=== PATIENT | female | born 1945 | race Caucasian/White ===

== ENCOUNTER 2020-05-11 15:24 | Inpatient (IN) | payer MEDICARE ==
[~2020-05-11] VITALS: Ht 149.9 cm; Wt 54.2 kg
[2020-05-12] MEDS ORDERED: FLEET ENEMA ADULT 1 EA BTL PR PRN (05:30)
[2020-05-12] MEDS ORDERED: ONDANSETRON 4 MG (ZOFRAN) ORAL DISSOLVE TAB PO PRN (05:30)
[2020-05-12] MEDS ORDERED: DOCUSATE SODIUM 100 MG (COLACE) CAP PO PRN (05:30)
[2020-05-12] MEDS ORDERED: ACETAMINOPHEN 500 MG TAB (TYLENOL) PO PRN (05:30)
[2020-05-12] MEDS ORDERED: LOPERAMIDE 2 MG (IMODIUM) TABLET PO PRN (05:30)
[2020-05-12] MEDS ORDERED: diphenhydrAMINE 25 MG TAB (BENADRYL) PO PRN (05:30)
[2020-05-12] MEDS ORDERED: CALCIUM CARBONATE 500 MG (TUMS) TAB.CHEW PO PRN (05:30)
[2020-05-12] MEDS ORDERED: BISACODYL 10 MG SUPP (DULCOLAX) PR PRN (05:30)
[2020-05-12] MEDS ORDERED: guaiFENesin/CODEINE (ROBITUSSIN AC) 10ML UDC PO PRN (05:30)
[2020-05-12] MEDS ORDERED: LACTULOSE SYRUP 10GM/15ML (ENULOSE) 30ML UDC PO PRN (05:30)
[2020-05-12] MEDS ORDERED: ACET325C7 PO (10:47)
[2020-05-12] MEDS ORDERED: FAMO20TA3 PO (10:47)
[2020-05-12] MEDS ORDERED: ASPI-999 PO (10:47)
[2020-05-12] MEDS ORDERED: CARV3.122 PO (10:47)
[2020-05-12] MEDS ORDERED: IPRA3AMP31 IH (10:47)
[2020-05-12] MEDS ORDERED: ATOR40TA70 PO (10:47)
[2020-05-12] MEDS ORDERED: INSU100V SQ (10:47)
[2020-05-12] MEDS ORDERED: BUDE0.5A IH (10:47)
[2020-05-12] MEDS ORDERED: ALB0.5V INH (10:47)
[2020-05-12] MEDS ORDERED: INSU100V6 SQ (10:48)
--- NOTE | 2020-05-12 10:56 | NUR ---
MED REC WAS ENTERED USING THE DISCHARGE ORDERS FROM [facility] IN [place]. AFTER MEDICATIONS ARE CONTINUED I WILL SPEAK WITH THE PT AND MAKE ANY CHANGES TO THE NOTES/MED REC IF NEEDED Addendum: 05/16/20 at 1556 by DIANE PERES [facility] SPOKE WITH THE PT TODAY REGARDING HER HOME MEDICATIONS, UNFORTUNATELY JACINTO WAS NOT ABLE TO GIVE ME ANY INFORMATION. SHE WANTED ME TO REACH OUT TO HER DAUGHTER (JACLYN). I CALLED JACLYN AND HAD TO LEAVE A MESSAGE. Addendum: 05/17/20 at 1114 by DIANE PERES [facility] I SPOKE WITH JACLYN AND SHE THOUGHT JACINTO WAS TAKING A MEDICATION FOR HER BLOOD SUGAR. WHEN I ASKED WHICH PRACTITIONER OR OFFICE THE PT WENT TO, JACLYN NAMED [facility] IN [place]. I ALSO ASKED WHICH PHARMACY JACINTO USED AND AJCLYN DIDNT KNOW. I CALLED [facility] [place] AND THEY INDICATED THAT JACINTO IS NOT A CURRENT PT AND THEY HAD NOT SEEN HER SINCE 2016 FOR THE REASONS LISTED ABOVE I TOOK ALL MEDICATIONS OFF THE MED REC AND SET IT TO "NO MEDICATIONS". I ALSO DID LET DR. WAGNER KNOW OF WHAT I HAVE FOUND.
[2020-05-12] MEDS ORDERED: RT-ALBUTEROL/IPRATROPIUM 3 ML (DUONEB) VIAL IH PRN (12:15)
[2020-05-12] MEDS ORDERED: RT-ALBUTEROL SULF 2.5 MG/3 ML PRE-MIX VIAL INH PRN (12:15)
[2020-05-12] MEDS ORDERED: FAMOTIDINE 20 MG (PEPCID) TABLET PO SCH (12:15)
[2020-05-12] MEDS ORDERED: NON-FORMULARY MEDICATION 1 EA EA (Acetaminophen (Tylenol) 650 MG) PO PRN (12:15)
--- NOTE | 2020-05-12 12:38 | NUR ---
Admitted to room 229 , with an admitting diagnosis of CVA , on 05-12-20 from [facility] , accompanied by .JACINTO FAIRCHILD introduced to surroundings, call light, bed controls, phone, TV, temperature control, lights, meal times, smoking policy, visitor policy, side rail policy, bathrooms and showers. Patient Rights given to patient in the handbook.JACINTO FAIRCHILD verbalizes understanding that [facility] is not responsible for the loss or damage to any personal effects or valuables that are kept in the patients posession during their hospitalization. The following Patient Care Plans were discussed with the : Discharge Planning, ,, and . JACINTO FAIRCHILD verbalizes understanding of Interdisciplinary Patient Education. Patient and/or family were informed about the Rapid Response Team and its purpose. Patient received Patient Rights Booklet, which includes Privacy Act Statement and Data Collection Information Summary.
[2020-05-12] MEDS ORDERED: ACETAMINOPHEN 325 MG TABLET PO PRN ×2 (13:15)
--- NOTE | 2020-05-12 13:59 | Progress Note ---
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 PMH is significant for CAD, diabetes mellitus, PVD, and COPD. Following surgery she was transferred to [facility]. While a patient there she was found to have right lower extremity coldness and pulses in the RLE were undetectable with doppler. She was started on an IV heparin drip and was transferred to [place] and vascular surgery was consulted. She underwent a bilateral lower extremity angiogram and was recommended to continue medical management. She was then transferred back to [facility] for further care. As a result of the stroke she now has right sided weakness, dysarthria, expressive aphasia, and dysphagia. Prior to her CVA she was independent in all activities of daily living without limitations. She is admitted to inpatient rehab here at [facility] with critical illness myopathy and will require intensive PT, OT, OPERATIONS RECRUITER, and nursing care. PMH: CAD, diabetes mellitus, PVD, and COPD-non 02 dependent PSH: CABG x 3 vessels, PEG per transfer paperwork-not present currently Allergies: NKDA Medications: ASA 81 mg po Q day, Lipitor 40 mg Q day, Coreg 3.25 mg BID, Lantus 15 units SubQ Q day, Lispro sliding scale, Entresto 1 tab po Q day FH: Negative for cancer or heart disease SH: Former smoker. Single. Lives alone. 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 ROS: Negative for fevers, chills, chest pain, SOB, nausea, vomiting, diarrhea, headache, blurry vision, dysuria. Positive for Right sided weakness. Objective: T P RR BP SPO2 General: Chronically ill appearing female appearing stated age in no apparent distress. HEENT: Normocephalic/Atraumatic. PERRL. EOMI. Pharynx without erythema or exudates. Poor dentition. Cardiac: RRR. No murmur, rub, or gallop. Cap refill < 2 seconds bilateral hands. Radial pulses +2/4 bilat. Pedal pulses +1/4bilat. Trace edema BLE. Respiratory: Lungs CTAB, but diminished bibasilar. No rales, rhonchi or wheezes. No accessory muscle use. O2 via NC. GI: Abdomen soft and nontender to palpation. No rebound or guarding. Bowel sounds normoactive all quadrants. : Villanueva catheter present Skin: Warm and dry. Midline sternotomy incision healing, without drainage, edges well approximated, open to air. MSK/Neuro: Left palmar grasp 5/5. Right palmar grasp 3/5. Left lower extrem hip flexion 5/5. Right lower extrem hip flexion 3/5. Left foot plantarflexion 5/5. Right foot plantarflexion 3/5. Sensation to bilateral upper and lower extremities intact. Cranial nerves 2-12 grossly intact. Expressive aphasia noted. Patient leaning slightly to the right while lying in bed. 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 Ensure adequate anticoagulation 2. PT, OT, and OPERATIONS RECRUITER eval's and treat 3. Oxygen via NC- wean as tolerated 4. Resume Home medications 5. Fall precautions 6. Dietary consult 7. DVT prophylaxis CASSI WAGNER DO 05/12/202054: Supervisory-Addendum Brief Verification & Attestation Participated in pt care: history, MDM, physical Personally performed: exam, history, MDM, supervision of care Care discussed with: Medical Student Procedures: n/a Results interpretation: Verified all documentation Verification and Attestation of Medical Student E/M Service A medical student performed and documented this service in my presence. I reviewed and verified all information documented by the medical student and made modifications to such information, when appropriate. I personally performed the physical exam and medical decision making. Cassi Wagner, May 12, 2020,20:55 WINSTON ORELLANA MED STUDENT May 12, 2020 13:59 CASSI WAGNER DO May 12, 2020 20:55
--- NOTE | 2020-05-12 14:35 | Physical Therapy Evaluation ---
PT Evaluation-General Medical Diagnosis Admission Date May 12, 2020 at 12:30 Medical Diagnosis: CVA Onset Date: Apr 13, 2020 Therapy Diagnosis Therapy Diagnosis: Impaired mobility and strength Precautions Precautions/Isolations: Fall Prevention, Standard Precautions Weight Bear Status Right Lower Extremity: Right Full Weight Bearing Left Lower Extremity: Left Full Weight Bearing Referral Physician: Caroline Reason for Referral: Evaluation/Treatment Medical History Pertinent Medical History: CAD, COPD, DM, PVD Reviewed History: Yes Social History Home: Single Level Current Living Status: Alone Entry Into Home: Level Entry PT Steps Into Home: 0 PT Steps Inside Home: 0 Prior Prior Level of Function SCALE: Activities may be completed with or without assistive devices. 8-Tmeyovegbf-jrqevvh completes the activity by him/herself with no assistance from a helper. 5-Set-up or Clean-up Assistance-helper sets up or cleans up; patient completes activity. Sutton assists only prior to or following the activity. 4-Supervision or Touching Assistance-helper provides verbal cues and/or touching/steadying and/or contact guard assistance as patient completes activity. Assistance may be provided throughout the activity or intermittently. 3-Partial/Moderate Assistance-helper does LESS THAN HALF the effort. Sutton lifts, holds or supports trunk or limbs, but provides less than half the effort. 2-Substantial/Maximal Assistance-helper does MORE THAN HALF the effort. Sutton lifts or holds trunk or limbs and provides more than half the effort. 2-Czlhexdcm-aqlnzc does ALL the effort. Patient does none of the effort to complete the activity. Or, the assistance of 2 or more helpers is required for the patient to complete the activity. If activity was not attempted, code reason: 7-Patient Refused. 9-Not Applicable-not attempted and the patient did not perform the activity before the current illness, exacerbation or injury. 10-Not Attempted due to Environmental Limitations-(lack of equipment, weather restraints, etc.). 88-Not Attempted due to Medical Conditions or Safety Concerns. Bed Mobility: 6 Transfers (B,C,W/C): 6 Gait: 6 Stairs: 6 Indoor Mobility (Ambulation): Independent Stairs: Independent Prior Devices Use: Other-see list below (Cane) Pt own walker that she does not use; pt has recently stated to use a cane but it is unclear how recent and for what reason PT Evaluation-Current Subjective Pt presents supine in bed. Pt agrees to PT. Pt reports no pain; later in session pt experienced pain at catheter insertion with movement that diminished. Pt/Family Goals Return Home Objective Patient Orientation: Person, Place, Time, Eyes Open, Situation, Mumbles Attachments: Oxygen, Villanueva Catheter ROM/Strength ROM Lower Extremities WFL Strength Lower Extremities R hip flex: <3/5 L hip flex: 4/5 R knee ext: 3/5 L knee ext: 5/5 Sensory Vision: Hearing: Functional Sensation Right Lower Extremit: Impaired Sensation Left Lower Extremity: Intact Sensation Lower Extremities LLE sensation intact to light touch L2-S2 RLE sensation impaired to light touch; unclear on how well pt was able to follow assessment instructions Transfers Roll Left & Right (QC): 3 Sit to Lying (QC): 3 Lying to Sitting/Side of Bed(Q: 2 Sit to Stand (QC): 3 Chair/Dxp-bh-Ieder Xfer(QC): 3 Toilet Transfer (QC): 3 Car Transfer (QC): 3 Pt required min assist to roll; mod assist for sit->lying; max assist for lying- >EOB. PT needs min assist with sit to stand; mod assist for chair to chair, toilet, and car transfers. Gait Does the Patient Walk?: Yes Mode of Locomotion: Both Anticipated Mode of Locomotion: Both Walk 10 feet (QC): 88 Walk 50 ft with 2 Turns(QC): 88 Walk 150 ft (QC): 88 Walking 10ft/uneven surface-QC: 88 Distance: 3' Gait Assistive Device: Parallel Bars Comments/Gait Description Pt ambulated 3' inside of parallel bars; pt took small shuffling steps and required assistance with weightshifting as well as progression of RLE. Wheelchair Training Does the Pt Use a Wheelchair?: Yes Distance: 150'x3 Wheel 50 ft with 2 turns (QC): 1 Wheel 150 ft (QC): 1 Type of Wheelchair: Manual Pt is unable to reach ground with BLE to propel and steer WC Stairs 1 Step (curb) (QC): 88 4 Steps (QC): 88 12 Steps (QC): 88 Balance Sitting Static: Fair Sitting Dynamic: Poor Standing Static: Poor Standing Dynamic: Poor Picking up an Object (QC): 88 Treatment Seated LAQs and ankle pumps x10 Showering and ADLs. Assessment/Needs Pt demonstrates ability to stand and bear weight but struggles to then pivot to transfer; pt appeared fearful of reaching for armrest with LUE and instead would hug onto therapist. Pt inconsistent with her ability to follow instructions with exercises. Rehab Potential: Fair PT Short Term Goals Short Term Goals Time Frame: May 19, 2020 Roll Left & Right: 4 Sit to lyin Lying to sitting on side of be: 3 Chair/rwc-qk-srpbr transfer: 3 Walk 10 feet: 3 Does pt use a wc or scooter: Yes Wheel 50ft w/2 turns: 3 Wheel 150 feet: 3 PT Fpc Goals Specialty Plant Supervisor Goals PT Specialty Plant Supervisor Goals Time Frame: Jun 02, 2020 Roll Left & Right (QC): 6 Sit to Lying (QC): 6 Lying-Sitting on Side/Bed(QC): 6 Sit to Stand (QC): 4 Chair/Eyt-hg-Nunju Xfer(QC): 4 Toilet Transfer (QC): 4 Car Transfer (QC): 4 Does the Patient Walk: Yes Walk 10 feet (QC): 3 Walk 50ft with 2 Turns (QC): 3 Walk 150 ft (QC): 88 Walking 10ft on Uneven Surface: 3 1 Step (curb) (QC): 3 4 Steps (QC): 88 12 Steps (QC): 88 Picking up an Object (QC): 88 Does the Pt use WC or Scooter?: Yes Wheel 50 feet with 2 turns (QC: 6 Wheel 150 feet: 6 PT Plan Problem List Problem List: Activity Tolerance, Functional Strength, Safety, Balance, Gait, Transfer, Bed Mobility, ROM Treatment/Plan Treatment Plan: Continue Plan of Care Treatment Plan: Bed Mobility, Education, Functional Activity Robbin, Functional Strength, Group Therapy, Gait, Safety, Therapeutic Exercise, Transfers Treatment Duration: Jun 03, 2020 Frequency: At least 5 of 7 days/Wk (IRF) Estimated Hrs Per Day: 1.5 hours per day Patient and/or Family Agrees t: Yes Safety Risks/Education Patient Education: Gait Training, Transfer Techniques, Correct Positioning, W/C Management, Safety Issues Teaching Recipient: Patient Teaching Methods: Demonstration, Discussion Response to Teaching: Reinforcement Needed Discharge Recommendations Plan Pt will work on bed mobility, transfers, balance, gait training, and therapeutic exercises. Time/GCodes Time In: 1320 Time Out: 1435 Total Billed Treatment Time: 75 Total Billed Treatment 1 visit EVM 10' FA 50' EX 15' Pt Eval [id number]; Cotreated with OT [id number]; Pt focused on mobility and transfers while OT assisted with showering and ADLs. SHREYA FIGUEREDO PT May 12, 2020 14:35
[2020-05-12 15:00] VITALS: BP 140/81
[2020-05-12 15:24] VITALS: BP 140/81
--- NOTE | 2020-05-12 15:47 | Occupational Therapy Eval ---
OT Evaluation-General/PLF Medical Diagnosis Admission Date May 12, 2020 at 12:30 Medical Diagnosis: CVA Onset Date: Apr 13, 2020 Therapy Diagnosis Therapy Diagnosis: Right sided weakness, aphasia Precautions Precautions/Isolations: Fall Prevention, Standard Precautions Referral Physician: Caroline Driver Reason: Activity Tolerance, Self Care, Evaluation/Treatment, Strengthening/ROM Medical History Pertinent Medical History: CAD, COPD, DM, PVD Additional Medical History Myopathy, Dysphagia, dysarthria Current History Pt. underwent CABG x 3, which resulted in CVA with right sided weakness. Reviewed History: Yes Social History Home: Single Level Current Living Status: Alone Entry Into Home: Level Entry Steps Into Home: 0 Steps Inside Home: 0 ADL-Prior Level of Function SCALE: Activities may be completed with or without assistive devices. 4-Fyzkewgwcv-minoxyw completes the activity by him/herself with no assistance from a helper. 5-Set-up or Clean-up Assistance-helper sets up or cleans up; patient completes activity. Spencer assists only prior to or following the activity. 4-Supervision or Touching Assistance-helper provides verbal cues and/or touching/steadying and/or contact guard assistance as patient completes activity. Assistance may be provided throughout the activity or intermittently. 3-Partial/Moderate Assistance-helper does LESS THAN HALF the effort. Spencer lifts, holds or supports trunk or limbs, but provides less than half the effort. 2-Substantial/Maximal Assistance-helper does MORE THAN HALF the effort. Spencer lifts or holds trunk or limbs and provides more than half the effort. 4-Kjahgbdsp-qxgwod does ALL the effort. Patient does none of the effort to compl ete the activity. Or, the assistance of 2 or more helpers is required for the patient to complete the activity. If activity was not attempted, code reason: 7-Patient Refused. 9-Not Applicable-not attempted and the patient did not perform the activity before the current illness, exacerbation or injury. 10-Not Attempted due to Environmental Limitations-(lack of equipment, weather restraints, etc.). 88-Not Attempted due to Medical Conditions or Safety Concerns. ADL PLOF Comments Pt. was independent with daily skills. 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 She reports that she was in the [employer]. Self Care: Independent Functional Cognition: Independent DME/Equipment Comments Pt. verbalizes that she has a walker she doesn't use, and was using a cane occasionally prior to this incident. 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 Drive Self: Yes OT Current Status Subjective No pain reported. Appearance Pt. in bed. Alert. Agrees to work with therapy. Mental Status/Objective Patient Orientation: Person, Place Attachments: Villanueva Catheter, Oxygen Current Glasses/Contacts: Yes Upper Extremity ROM Left- intact Right- impaired. Pt. is able to lift right arm at shoulder, approximately 30 degrees,but this gets more difficult the more tired she becomes. Pt. able to slightly grasp with right hand. Upper Extremity Strength Left- WFL Right- 2+/5 material man strength Edema: Pt. does have edema in right hand. ADL-Treatment Eating (QC): 7 (Pt. to be evaluated by ST.) Oral Hygiene (QC): 1 (OT handed pt. toothbrush while she was in shower, with no toothpaste. Pt. put the handle of it in her mouth. OT attempted ORUTSARARMIUT assist, but pt. unable to understand. OT brushes pt's teeth for her.) Shower/Bathe Self (QC): 2 (Pt. is able to wash her chest and right arm. She requires assistance to wash all other parts. Pt. showers while seated on shower chair.) Upper Body Dressing (QC): 88 (Pt. verbalizes that she is tired. OT assists with doffing/donning clean hospital gown.) Lower Body Dressing (QC): 88 On/Off Footwear (QC): 1 (Pt. able to extend her legs for OT to doff/don slipper socks.) Toileting Hygiene (QC): 1 (Catheter. Pt. verbalizes that she is continent of stool, but pt. slightly incontinent in shower.) Other Treatments OT/PT completed partial co-treatment due to pt's fatigue level, as well as need for skilled assistance x 2. Pt. arrived via ambulance, but agrees to participate. OT focused on ADL skills and UE assessement while PT focused on transfers and mobility. Pt. practiced car transfer, transfer to shower chair and shower, as well as ambulation in parallel bars. Pt. greatly fatigued throughout. Required max x 2 to ambulate 10 feet in bars. Pt. demonstrates fear of movement and falling while standing, and "pushes" when transferring to left side. Pt. motivated and pleasant. Seems aware of deficits, but demonstrates some right sided neglect. Pt. able to use clear words at beginning of treatment. Noted by end of treatment, due to fatigue, her words were garbled and less intelligible. Pt. was transferred to lift chair after session with max assist. All needs met. Education OT Patient Education: Correct positioning, Exercise program, Modified ADL techniques, Progress toward Goal/Update tx plan, Purpose of tx/functional activities, Reviewed precautions, Rehab process, Transfer techniques Teaching Recipient: Patient Teaching Methods: Demonstration, Discussion Response to Teaching: Verbalize Understanding, Return Demonstration, Reinfo rcement Needed OT Short Term Goals Short Term Goals Time Frame: May 26, 2020 Eatin Oral hygiene: 3 Toileting hygiene: 3 Shower/bathe self: 3 Upper body dressin Lower body dressin Putting on/taking off footwear: 3 OT Usp Goals Usp Goals Time Frame: Jun 09, 2020 Eating (QC): 4 Oral Hygiene (QC): 4 Toileting Hygiene (QC): 3 Shower/Bathe Self (QC): 3 Upper Body Dressing (QC): 5 Lower Body Dressing (QC): 4 On/Off Footwear (QC): 4 Additional Goals: 1-Demonstrate ADL Tasks, 2-Verbalize Understanding, 3- ImproveStrength/Robbin 1=Demonstrate adherence to instructed precautions during ADL tasks. 2=Patient will verbalize/demonstrate understanding of assistive devices/modifications for ADL. 3=Patient will improve strength/tolerance for activity to enable patient to perform ADL's. OT Education/Plan Problem List/Assessment Assessment: Decreased Activ Tolerance, Decreased UE Strength, Dependent Transfers, Edema, Impaired Bed Mobility, Impaired Cognition, Impaired Coordination, Impaired Funct Balance, Impaired I ADL's, Impaired Self-Care Skills, Restricted Funct UE ROM, Visual-Perceptual Deficit Discharge Recommendations Plan/Recommendations: Continue POC Therapy Discharge Recommendati: Post Acute OT Comment Equipment needs and discharge location to be determined. Treatment Plan/Plan of Care Treatment,Training & Education: Yes Patient would benefit from OT for education, treatment and training to promote independence in ADL's, mobility, safety and/or upper extremity function for ADL's. Plan of Care: ADL Retraining, Functional Mobility, Group Exercise/Act as Ind, UE Funct Exercise/Act Treatment Duration: Jun 09, 2020 Frequency: At least 5 of 7 days/Wk (IRF) Estimated Hrs Per Day: 1.5 hours per day Agreement: Yes Rehab Potential: Fair Time/GCodes Start Time: 12:55 Stop Time: 14:35 Total Time Billed (hr/min): 80 Billed Treatment Time 8127-7742 1, EVH x 15minutes [id number] Med student assessment, no charge [id number] PT eval, no charge [id number] 1, ADL x 30minutes, FA x 15minutes, Ex x 20minutes (Co-treatment with PT. Please see above note for designated roles.) RALPH LUO OT May 12, 2020 15:47
--- NOTE | 2020-05-12 16:10 | ST Cognitive Linguistic Eval ---
Speech Evaluation-General Medical Diagnosis CVA Onset Date: Apr 13, 2020 Therapy Diagnosis Therapy Diagnosis: Dysarthria, Dysphagia, Expressive Aphasia Precautions Precautions/Isolations: Airborne Isolation Referral Referring Physician: Dr. Velazquez Medical History Pertinent Medical History: CAD, COPD, DM, PVD Reviewed History: Yes Social History Current Living Status: Alone Speech PLF-Current Status Prior Level of Function Patient lives alone and was independent for her daily needs prior to illness. Subjective Patient was pleasant and cooperative with the cognitive assessment. Language Eval: Auditory Comprehends Simple Yes/No Ques: Functional Indent/Objects Multiple Orta: Functional Ident/Pics in Multiple Orta: Functional Follows 1-Step Commands: Functional Follows Complex Directions: Mild Follows General Conversations: Functional Language Eval: Verbal Language Completes Spontaneous Greeting: Functional Produces Auto, Serial Info: Mild Imitates Simple Words/Phrases: Mild Word Finding: Mild Requests Basic Needs: Mild States Basic Personal Info: Mild Expresses Complex Ideas: Moderate Objective Cognitive Domain Attention: WNL Memory: Mild Problem Solving: Moderate, Mild Executive Functions: Moderate Composite Severity Rating: Moderate Clock Drawing Severity Rating: Moderate Objective Formal/Standardized Tests [facility] Mental Status ([facility]), WAB sub tests, informal speech tasks Results 18/30 within Moderate Dementia Disorder range of function, however due to patient's expressive aphasia this score would be considered lower than actual, Moderate speech disorder Oral Motor/Speech Production Patient presents with dysarthria as well as expressive aphasia Impression Patient is a pleasant 75 y/o female who presents to the ARU s/p CVA. The patient was given the SLUMS, WAB subtests and informal speech tasks. The patient scored an 18/30 which may be a lower score than actual. The patient's speech is clear and intelligible for 75% of her communication. She also mumbles and has difficulty expressing herself at times. Patient also has dysphagia and takes in some by oral and also the PEG tube is in place for nutrition. Patient will receive skilled ST to focus on expression, dysphagia and dysarthria. Speech Patient Assess Expression of Ideas/Wants: Frequently (2) Understanding Verbal Content: Usually Understands (3) Brief Interview-Mental Status: Yes Repetition of Three Words: Three (3) Temporal Orientation: Year: Correct (3) Temporal Orientation: Month: Accurate within 5 days(2) Temporal Orientation: Day: Correct (1) Recall : Wear to say "Sock": No, could not recall (0) Recall : Color: No, could not recall (0) Recall : Bed: Yes,after cueing (1) Memory/Recall Ability: Current season, That he or she is in a hsp/hsp unit Speech Short Term Goals Short Term Goals Short Term Goals 1) The patient will complete cognitive tasks related to memory, safety awareness and problem solving at 80% with minimal cues. 2) The patient will complete speech tasks to improve intelligibility at 80% with minimal cues. 3) The patient will complete confrontational naming tasks at 90% with minimal cues. 4) The patient will complete OME for improved oral status for safe oral intake at 80% or greater with minimal cues. Speech Ip Attorney Goals Ip Attorney Goals Patient will improve communication abilities and safe oral intake in order to return to prior level. Speech-Plan Patient/Family Goals Patient/Family Goals: Patient's discharge plans are unknown at this time. Treatment Plan Speech Therapy Treatment Plan: Continue Plan of Care Treatment Duration: May 25, 2020 Frequency: 4 times per week (Patient will receive ST 4-5x per week) Estimated Hrs Per Day: .5 hour per day Rehab Potential: Fair Barriers to Learning: Patient's recent CVA and related disabilities, age Pt/Family Agrees to Plan: Yes Safety Risks/Education Teaching Recipient: Patient Teaching Methods: Discussion Response to Teaching: Verbalize Understanding Education Topics Provided: Safety within her room, utilization of the call light as needed Time Speech Therapy Time In: 15:30 Speech Therapy Time Out: 16:00 Total Billed Time: 30 Billed Treatment Time 1, OMAR VALLADARES [address] ST May 12, 2020 16:10
--- NOTE | 2020-05-12 16:26 | NUR ---
UNABLE TO ANSWER ADMISSION QUESTIONS DUE TO EXPRESSIVE APHASIA. DAUGHTER JACLYN CALLED AND ANSWERED QUESTIONS. PATIENT AND DAUGHTER DO NOT KNOW IF SHE HAS HAD PNEUMONIA VACCINE. JACLYN STATES PATIENT'S PHYSICIAN IS AT [facility] IN [place]. CLINIC CALLED AND THEY SAID THEY HAVE NOT SEEN HER SINCE 2016. UNABLE TO FILL OUT PNEUMONIA VACCINE INTERVENTION. JACLYN ALSO SAYS SHE SHOULD BE A FULL CODE PRESENTLY, BUT SHE IS GOING TO TALK TO BROTHER ABOUT DPOA AND MAKING HER A DNR.
[2020-05-12] MEDS: polyethylene glycoL POWDER 17 GM (MIRALAX) PACK PO SCH ×2 (17:13→21:00)
[2020-05-12] MEDS: SENNA W/DOCUSATE (SENOKOT S) TABLET PO SCH ×2 (17:13→21:00)
[2020-05-12] MEDS: DOCUSATE SODIUM 100 MG (COLACE) CAP PO SCH ×2 (17:13→21:00)
[2020-05-12] MEDS: inSUlin ASPART (NovoLOG) 1 UNIT/0.01 ML (CHARGE PER UNIT) SC SCH ×2 (17:13→21:04)
[2020-05-12 17:39] VITALS: BP 161/72
--- NOTE | 2020-05-12 17:52 | PM&R Post Admission Assessment ---
PM&R HP Date of Visit: May 12, 2020 Time of Visit: 12:45 History of Present Illness CC: CVA HPI: This is a 75yoWF patient who presents from LTAC in [place] where she was admitted after suffering a CVA with right sided weakness and dysarthria and expressive aphasia. PEG tube is in place. Patient denies pain. Patient had an uneventful transport from [place]. Villanueva cath is in place and unsure if she has retention. Last BM is unknown at this time. Reviewed below information from medical student. Verification and Attestation of Medical Student E/M Service A medical student performed and documented this service in my presence. I reviewed and verified all information documented by the medical student and made modifications to such information, when appropriate. I personally performed the physical exam and medical decision making. Cassi Wagner, May 12, 2020,20:59 History and Physical by ANY Alejandre Subjective: CC: CVA HPI: Louise Nicolas is a 75 year old white female who presents to inpatient rehab from [facility] after sustaining a CVA involving the left occipital artery after undergoing CABG x 3 vessels on April 24. PMH is significant for CAD, diabetes mellitus, PVD, and COPD. Following surgery she was transferred to [facility]. While a patient there she was found to have right lower extremity coldness and pulses in the RLE were undetectable with doppler. She was started on an IV heparin drip and was transferred to [place] and vascular surgery was consulted. She underwent a bilateral lower extremity angiogram and was recommended to continue medical management. She was then transferred back to [facility] for further care. As a result of the stroke she now has right sided weakness, dysarthria, expressive aphasia, and dysphagia. Prior to her CVA she was independent in all activities of daily living without limitations. She is admitted to inpatient rehab here at [facility] with critical illness myopathy and will require intensive PT, OT, RUG DRYING MACHINE OPERATOR, and nursing care. PMH: CAD, diabetes mellitus, PVD, and COPD-non 02 dependent PSH: CABG x 3 vessels, PEG per transfer paperwork-not present currently Allergies: NKDA Medications: ASA 81 mg po Q day, Lipitor 40 mg Q day, Coreg 3.25 mg BID, Lantus 15 units SubQ Q day, Lispro sliding scale, Entresto 1 tab po Q day FH: Negative for cancer or heart disease SH: Former smoker. Single. Lives alone. 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 ROS: Negative for fevers, chills, chest pain, SOB, nausea, vomiting, diarrhea, headache, blurry vision, dysuria. Positive for Right sided weakness. Objective: T P RR BP SPO2 General: Chronically ill appearing female appearing stated age in no apparent distress. HEENT: Normocephalic/Atraumatic. PERRL. EOMI. Pharynx without erythema or exuda arcadio. Poor dentition. Cardiac: RRR. No murmur, rub, or gallop. Cap refill < 2 seconds bilateral hands. Radial pulses +2/4 bilat. Pedal pulses +1/4bilat. Trace edema BLE. Respiratory: Lungs CTAB, but diminished bibasilar. No rales, rhonchi or wheezes. No accessory muscle use. O2 via NC. GI: Abdomen soft and nontender to palpation. No rebound or guarding. Bowel sounds normoactive all quadrants. : Villanueva catheter present Skin: Warm and dry. Midline sternotomy incision healing, without drainage, edges well approximated, open to air. MSK/Neuro: Left palmar grasp 5/5. Right palmar grasp 3/5. Left lower extrem hip flexion 5/5. Right lower extrem hip flexion 3/5. Left foot plantarflexion 5/5. Right foot plantarflexion 3/5. Sensation to bilateral upper and lower extremities intact. Cranial nerves 2-12 grossly intact. Expressive aphasia noted. Patient leaning slightly to the right while lying in bed. 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 Ensure adequate anticoagulation 2. PT, OT, and RUG DRYING MACHINE OPERATOR eval's and treat 3. Oxygen via NC- wean as tolerated 4. Resume Home medications 5. Fall precautions 6. Dietary consult 7. DVT prophylaxis Past Miqjfnj-Ciuiqe-Tdgfer Hx Past Med/Social Hx: Reviewed Nursing Past Med/Soc Hx, Reviewed and Corrections made Patient Social History Marrital Status: single Employed/Student: student, part-time Alcohol Use: Denies Use Recreational Drug Use: No Smoking Status: Current Everyday Smoker Type Used: Cigarettes Physical Abuse Screen: No Sexual Abuse: No Recent Foreign Travel: No Contact w/other who traveled: No Recent Hopitalizations: Yes (CVA AND BYPASS SURGERY) Recent Infectious Disease Expo: No Immunizations Up To Date Date of Influenza Vaccine: May 10, 2020 Seasonal Allergies Seasonal Allergies: No Past Medical History Surgeries: Cardiac, CABG, Open Heart Surgery Respiratory: COPD Currently Using CPAP: No Currently Using BIPAP: No Cardiac: Cardiomyopathy, Coronary Artery Disease, High Cholesterol, Hypertension Neurological: Stroke : No Sexually Transmitted Disease: No HIV/AIDS: No Musculoskeletal: Arthritis Endocrine: Diabetes, Non-Insulin dep Hearing Impairment: Denies History of Blood Disorders: No Family History Patient reports no known family medical history. 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 Drive Self: Yes Current Level of Fuctioning Roll Left to Right: 3 Sit to Lyin Lying to Sitting/Side of Bed: 2 Sit to Stand: 3 Chair/[id number]-[id number] Xfer: 3 Car Transfer: 3 Does the Patient Walk: Yes Mode of Locomotion: Both Anticipated Mode of Locomotion: Both Walk 10 feet: 88 Walk 50 ft with 2 Turns: 88 Walk 150 ft: 88 Walking 10ft on uneven surface: 88 Gait Assistive Device: Parallel Bars Does the Pt Use a Wheelchair: Yes Wheelchair Distance: 150'x3 Wheel 50 ft with 2 turns: 1 Wheel 150 ft: 1 Type of Wheelchair: Manual 1 Step (curb): 88 4 Steps: 88 12 Steps: 88 Picking up an Object: 88 Eatin (Pt. to be evaluated by ST.) Oral Hygiene: 1 (OT handed pt. toothbrush while she was in shower, with no toothpaste. Pt. put the handle of it in her mouth. OT attempted QUINAULT assist, but pt. unable to understand. OT brushes pt's teeth for her.) Shower/Bathe Self: 2 (Pt. is able to wash her chest and right arm. She requires assistance to wash all other parts. Pt. showers while seated on shower chair.) Upper Body Dressin (Pt. verbalizes that she is tired. OT assists with doffing/donning clean hospital gown.) Lower Body Dressin On/Off Footwear: 1 (Pt. able to extend her legs for OT to doff/don slipper socks.) Toileting Hygiene: 1 (Catheter. Pt. verbalizes that she is continent of stool, but pt. slightly incontinent in shower.) PM&R Allergy/Meds/Data Review Allergies Coded Allergies: No Known Drug Allergies (Unverified , 05/12/20) Home Medications Scheduled Aspirin (Aspirin), 81 MG PO DAILY, (Reported) Atorvastatin Calcium (Atorvastatin Calcium), 40 MG PO DAILY, (Reported) Budesonide (Budesonide), 0.5 MG IH BID, (Reported) Carvedilol (Carvedilol), 3.125 MG PO BID, (Reported) Famotidine (Acid Correspondence Section Supervisor (FAMOTIDINE)), 20 MG PO Q12H, (Reported) Insulin Glargine,Hum.rec.anlog (Lantus), 25 UNIT SQ HS, (Reported) Insulin Lispro (Humalog), UNIT SQ Q6H, (Reported) Scheduled PRN Acetaminophen (Tylenol), 650 MG PO Q6H PRN for PAIN-MILD (1-4), (Reported) Albuterol Sulfate (Albuterol Sulfate), 2.5 MG INH Q4H PRN for SHORTNESS OF BREATH, (Reported) Ipratropium/Albuterol Sulfate (Iprat-Albut 0.5-3(2.5) mg/3 ml), 3 ML IH Q6H PRN for SHORTNESS OF BREATH, (Reported) Current Medications Current Medications Reviewed Laboratory Data Laboratory Tests 05/12/20 16:54: Glucometer 73 Review of Systems Constitutional: see HPI, malaise, weakness Gastrointestinal: constipation Genitourinary: other (retention) Psychiatric/Neurological: Anxiety, Depressed All Other Systems Reviewed Negative Unless Noted: Yes Physical Exam Physical Exam Vital Signs Vital Signs - First Documented 05/12/20 15:00 Temp 35.9 Pulse 80 Resp 20 B/P (MAP) 140/81 (100) Pulse Ox 99 O2 Delivery Nasal Cannula O2 Flow Rate 1.50 Capillary Refill : Height, Weight, BMI Height: '" Weight: lbs. oz. kg; 25.27 BMI Method: General Appearance: No Apparent Distress, Anxious, Chronically ill, Thin Eyes: Bilateral Eye Normal Inspection, Bilateral Eye PERRL HEENT: PERRL/EOMI, Normal ENT Inspection, Pharynx Normal Neck: Full Range of Motion, Normal Inspection, Non Tender, Supple, Carotid Bruit Respiratory: Chest Non Tender, Lungs Clear, No Accessory Muscle Use, No Respiratory Distress, Decreased Breath Sounds Cardiovascular: Regular Rate, Rhythm, No Edema, No Gallop, No JVD, No Murmur, Normal Peripheral Pulses Gastrointestinal: Normal Bowel Sounds, No Organomegaly, No Pulsatile Mass, Non Tender, Soft Back: Normal Inspection, No CVA Tenderness, No Vertebral Tenderness Extremity: Normal Capillary Refill, Normal Inspection, Normal Range of Motion (except right sided weakness), Non Tender, No Calf Tenderness, No Pedal Edema Neurologic/Psychiatric: Alert, No Motor/Sensory Deficits, Normal Mood/Affect, Abnormal dispensing lead II-XII, Aphasia, Facial Droop, Motor Weakness (right sided flaccidity) Skin: Normal Color, Warm/Dry Lymphatic: No Adenopathy PM&R Medical Assessment & Plan REHAB/MEDICAL ASSESSMENT AND PLAN: REHAB IMPAIRMENT GROUP: CVA ETIOLOGIC DIAGNOSIS: CVA The comorbidities that impact the patients function and/or functional outcome by: catastrophic CVA with right sided flaccidity of dominant upper extremity, dysarthria, expressive aphasia REHAB PLAN: The patient is being admitted to our comprehensive inpatient rehabilitation facility and can tolerate the intensity of service consisting of at least: 180 minutes of therapy a day, 5 out of 7 days a week Rehab treatment will consist of: PT OT will help regain function with right sided weakness in order to lessen the burden on caretakers and ST will help dysphagia and dysarthria The patient/family has a good understanding of our discharge process and will benefit from an interdisciplinary inpatient rehabilitation program. The patient has potential to make improvement and is in need of at least two of the following multidisciplinary therapies including but not limited to physical, occupational, speech, and prosthetics and orthotics. Additionally the patient will need services from respiratory, nutritional services, wound care, psychology, etc. (Customize this to each patient). Given the patients complex condition and risk of further medical complications, rehabilitation services cannot be safely or effectively provided at a lower level of care such as a correction facility. BARRIERS TO DISCHARGE: Catastrophic CVA with right sided flaccidity ESTIMATED LOS: 14 days DISPOSITION: Home RELEVANT CHANGES SINCE PREADMISSION SCREENING: I have compared the patients medical and functional status at the time of the preadmission screening and there are: no changes PROGNOSIS: Fair REHABILITATION GOALS: 1. PT OT will help regain function with right sided weakness in order to lessen the burden on caretakers and ST will help dysphagia and dysarthria All the above goals were reviewed with the patient and he/she is in agreement. By signing this document, I acknowledge that I have personally performed a full physical examination on this patient within 24 hours of admission to this inpatient rehabilitation facility and have determined the patient to be able to tolerate the above course of treatment at an intensive level for a reasonable period of time. I will be completing a detailed individualized Plan of Care for this patient by day #4 of the patients stay based upon the Preadmission Screen, the Post-Admission Evaluation, and the therapy evaluations. Admission Dx/Comorbidities: (1) CVA (cerebral vascular accident) ICD Codes: I63.9 - Cerebral infarction, unspecified (2) Dysarthria ICD Codes: R47.1 - Dysarthria and anarthria (3) Dysphagia ICD Codes: R13.10 - Dysphagia, unspecified (4) PEG (percutaneous endoscopic gastrostomy) status ICD Codes: Z93.1 - Gastrostomy status (5) Expressive aphasia ICD Codes: R47.01 - Aphasia (6) Smoker ICD Codes: F17.200 - Nicotine dependence, unspecified, uncomplicated (7) COPD (chronic obstructive pulmonary disease) ICD Codes: J44.9 - Chronic obstructive pulmonary disease, unspecified (8) CAD (coronary artery disease) ICD Codes: I25.10 - Atherosclerotic heart disease of jena coronary artery without angina pectoris (9) Hx of CABG ICD Codes: Z95.1 - Presence of aortocoronary bypass graft (10) Villanueva catheter in place ICD Codes: Z97.8 - Presence of other specified devices (11) Retention of urine ICD Codes: R33.9 - Retention of urine, unspecified Assessment/Plan Assessment and Plan Assess & Plan/Chief Complaint Assessment per KENNETH AlejandreII: 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 Ensure adequate anticoagulation 2. PT, OT, and RUG DRYING MACHINE OPERATOR eval's and treat 3. Oxygen via NC- wean as tolerated 4. Resume Home medications 5. Fall precautions 6. Dietary consult 7. DVT prophylaxis CASSI WAGNER DO May 12, 2020 17:52
[2020-05-12] MEDS ORDERED: amLODIPine 5 MG (NORVASC) TAB PO NR (18:00)
[2020-05-12] MEDS: RT-ALBUTEROL/IPRATROPIUM 3 ML (DUONEB) VIAL IH SCH (20:31)
[2020-05-12] MEDS: RT-BUDESONIDE NEBS 0.5 MG/2ML (PULMICORT) AMP IH SCH (20:31)
[2020-05-12 20:55] VITALS: BP 130/52
[2020-05-12] MEDS ORDERED: NON-FORMULARY MEDICATION 1 EA EA (Insulin Glargine,Hum.rec.anlog (Lantus) 25 UNIT) SQ SCH (21:00)
[2020-05-12] MEDS: CARVEDILOL 3.125 MG (COREG) TABLET PO SCH (21:00)
[2020-05-12] MEDS: FAMOTIDINE 20 MG (PEPCID) TABLET PO SCH (21:43)
[2020-05-13] MEDS: inSUlin ASPART (NovoLOG) 1 UNIT/0.01 ML (CHARGE PER UNIT) SC SCH ×4 (05:26→20:11)
--- NOTE | 2020-05-13 06:11 | PM&R Progress Note ---
Subjective HPI/CC On Admission Date Seen by Provider: May 13, 2020 Time Seen by Provider: 06:00 Subjective/Events-last exam Patient doing well Settling in well No pain reported Working with PT OT and ST Eating a bit more without aspiration No falls Checked meds and labs Conferred with RN Reviewed therapy notes Review of Systems General: Fatigue, Malaise Neurological: Weakness, Incoordination Objective Exam Vital Signs Vital Signs Date Time Temp Pulse Resp B/P (MAP) Pulse Ox O2 Delivery O2 Flow Rate FiO2 05/14/20 09:00 Room Air 05/14/20 06:00 36.3 88 16 162/61 (58) 94 1.50 Capillary Refill : Less Than 3 Seconds General Appearance: No Apparent Distress, Anxious, Chronically ill, Thin HEENT: PERRL/EOMI, Normal ENT Inspection, Pharynx Normal Neck: Full Range of Motion, Normal Inspection, Non Tender, Supple, Carotid Bruit Respiratory: Chest Non Tender, Lungs Clear, No Accessory Muscle Use, No Respiratory Distress, Decreased Breath Sounds Cardiovascular: Regular Rate, Rhythm, No Edema, No Gallop, No JVD, No Murmur, Normal Peripheral Pulses Gastrointestinal: Normal Bowel Sounds, No Organomegaly, No Pulsatile Mass, Non Tender, Soft Back: Normal Inspection, No CVA Tenderness, No Vertebral Tenderness Extremity: Normal Capillary Refill, Normal Inspection, Normal Range of Motion (except right sided weakness), Non Tender, No Calf Tenderness, No Pedal Edema Neurologic/Psychiatric: Alert, No Motor/Sensory Deficits, Normal Mood/Affect, Abnormal security assurance analyst II-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 FIM Transfers Therapy Code Descriptions/Definitions Functional [place] Measure: 0=Not Assessed/NA 4=Minimal Assistance 1=Total Assistance 5=Supervision or Setup 2=Maximal Assistance 6=Modified [place] 3=Moderate Assistance 7=Complete IndependenceSCALE: Activities may be completed with or without assistive devices. 2-Vbtqtcqlio-khzfolr completes the activity by him/herself with no assistance from a helper. 5-Set-up or Clean-up Assistance-helper sets up or cleans up; patient completes activity. [place] assists only prior to or following the activity. 4-Supervision or Touching Assistance-helper provides verbal cues and/or touching/steadying and/or contact guard assistance as patient completes activity. Assistance may be provided throughout the activity or intermittently. 3-Partial/Moderate Assistance-helper does LESS THAN HALF the effort. [place] lifts, holds or supports trunk or limbs, but provides less than half the effort. 2-Substantial/Maximal Assistance-helper does MORE THAN HALF the effort. [place] lifts or holds trunk or limbs and provides more than half the effort. 0-Bfmrlexti-nqbbyu does ALL the effort. Patient does none of the effort to complete the activity. Or, the assistance of 2 or more helpers is required for the patient to complete the activity. If activity was not attempted, code reason: 7-Patient Refused. 9-Not Applicable-not attempted and the patient did not perform the activity before the current illness, exacerbation or injury. 10-Not Attempted due to Environmental Limitations-(lack of equipment, weather restraints, etc.). 88-Not Attempted due to Medical Conditions or Safety Concerns. Roll Left to Right (QC): 3 Sit to Lying (QC): 3 Sit to Stand (QC): 3 Chair/Tmb-mm-Auajn Xfer(QC): 3 Car Transfer (QC): 3 Gait Training Does the Patient Walk?: Yes Walk 10 feet (QC): 88 Walk 50 ft with 2 Turns(QC): 88 Walk 150 ft (QC): 88 Walking 10ft/uneven surface-QC: 88 Gait Assistive Device: Parallel Bars Wheelchair Training Does the Pt Use a Wheelchair?: Yes Distance: 150'x3 Wheel 50 ft with 2 turns (QC): 1 Wheel 150 ft (QC): 1 Type of Wheelchair: Manual Stair Training 1 Step (curb) (QC): 88 4 Steps (QC): 88 12 Steps (QC): 88 Balance Picking up an Object (QC): 88 ADL-Treatment Eating (QC): 7 (Pt. to be evaluated by ST.) Oral Hygiene (QC): 1 (OT handed pt. toothbrush while she was in shower, with no toothpaste. Pt. put the handle of it in her mouth. OT attempted MATCH-E-BE-NASH-SHE-WISH BAND assist, but pt. unable to understand. OT brushes pt's teeth for her.) Shower/Bathe Self (QC): 2 (Pt. is able to wash her chest and right arm. She requires assistance to wash all other parts. Pt. showers while seated on shower chair.) Upper Body Dressing (QC): 88 (Pt. verbalizes that she is tired. OT assists with doffing/donning clean hospital gown.) Lower Body Dressing (QC): 88 On/Off Footwear (QC): 1 (Pt. able to extend her legs for OT to doff/don slipper socks.) Toileting Hygiene (QC): 1 (Catheter. Pt. verbalizes that she is continent of stool, but pt. 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 Ensure adequate anticoagulation 2. PT, OT, and PHERESIS SPECIALIST eval's and treat 3. Oxygen via NC- wean as tolerated 4. Resume Home medications 5. Fall precautions 6. Dietary consult 7. DVT prophylaxis 05/13/20: Patient participating well No pain reported Continue current meds Advance diet (1) CVA (cerebral vascular accident) (2) Dysarthria (3) Dysphagia (4) PEG (percutaneous endoscopic gastrostomy) status (5) Expressive aphasia (6) Smoker (7) COPD (chronic obstructive pulmonary disease) (8) CAD (coronary artery disease) (9) Hx of CABG (10) Villanueva catheter in place (11) Retention of urine BECKI WAGNER DO May 13, 2020 06:11
--- NOTE | 2020-05-13 06:11 | Individualized Plan of Care ---
Individualized Plan of Care Rehab Nursing IPOC Order Admission Date May 12, 2020 at 12:30 Current Orders Orders Admission Order(Inpt,Obs,Sdc) (05/12/20 05:23) Vital Signs: Per Unit Policy ( 08,16,00 (05/12/20 05:23) Chris Rubio 09,21 (05/12/20 05:23) Sequential Compression Device Q4H (05/12/20 05:23) Brine Tank Operator-Inpt Rehab Con (05/12/20 05:23) Rehab Nursing Orders-Ipoc (05/12/20 05:23) Physical Therapy Rehab Orders (05/12/20 05:23) Occupational Therapy Rehab Ord (05/12/20 05:23) Speech Therapy Rehab Orders (05/12/20 05:23) Cbc With Automated Diff (05/13/20 06:00) Comprehensive Metabolic Panel (05/13/20 06:00) Intake & Output 06,14,22 (05/12/20 05:23) Precautions (Aru) (05/12/20 05:23) Rehab-Intensity Of Therapy (05/12/20 05:23) Initiate Admission Nursing Pro .admission (05/12/20 05:23) Acetaminophen Tablet (Tylenol Tablet) (05/12/20 05:30) Alprazolam Tablet (Xanax Tablet) (05/12/20 05:30) Calcium Carbonate Chew Tablet (Antacid C (05/12/20 05:30) Diphenhydramine Tablet (Benadryl Tablet) (05/12/20 05:30) Docusate Sodium Capsule (Colace Capsule) (05/12/20 09:00) Docusate Sodium Capsule (Colace Capsule) (05/12/20 05:30) Bisacodyl Suppository (Dulcolax Supposit (05/12/20 05:30) Lactulose Oral Solution (Enulose Oral So (05/12/20 05:30) Na Phos/Na Biphos Enema (Fleet Enema Sraavanan (05/12/20 05:30) Guaifenesin/Codeine Syrup (Robitussin Ac (05/12/20 05:30) Loperamide Tablet (Imodium Tablet) (05/12/20 05:30) Melatonin Tablet (Melatonin Tablet) (05/12/20 05:30) Polyethylene Glycol Powder Pkt (Miralax (05/12/20 09:00) Ondansetron Oral Dissolve Tab (Zofran (05/12/20 05:30) Senna S Tablet (Senokot S Tablet) (05/12/20 09:00) Initiate Admission Nursing Pro .admission (05/12/20 05:23) Aspirin Chewable Tablet (Baby Aspirin Ch (05/13/20 09:00) Atorvastatin Tablet (Lipitor) (05/13/20 09:00) Budesonide Inhalation Solution (Pulmicor (05/12/20 21:00) Carvedilol Tablet (Coreg Tablet) (05/12/20 21:00) Famotidine Tablet (Pepcid Tablet) (05/12/20 12:15) Albuterol/Ipra Inhalation Soln (Duoneb I (05/12/20 12:15) (Nf) Acetaminophen (Tylenol) (05/12/20 12:15) (Nf) Insulin Glargine,Hum.Rec.Anlog (Marquez (05/12/20 21:00) Accucheck Achs ACHS (05/12/20 12:06) Insulin Aspart (Novolog) (Novolog (Charg (05/12/20 16:00) Admission Arrival Bed Request (05/12/20 12:36) Acetaminophen Tablet/Caplet (Tylenol T (05/12/20 13:15) Acetaminophen Tablet/Caplet (Tylenol T (05/12/20 13:15) Insulin Determir (Per Unit) (Levemir (Pe (05/12/20 21:00) Albuterol/Ipra Inhalation Soln (Duoneb I (05/12/20 21:00) Edu Tobacco/Smoking Cessation .prn (05/12/20 15:24) Patient Visit (05/12/20 ) Pt Eval Moderate Complexity (05/12/20 ) Exercise Therap, Ea 15 Min (05/12/20 ) Functional Activities, Ea 15 (05/12/20 ) Patient Visit (05/12/20 ) Speech Sound Lang Comp (05/12/20 ) Treat. Speech/Lang/Voice (05/12/20 ) Cho 60g/M 3snack (16-2000 Daniel) (05/12/20 Dinner) Amlodipine Tablet (Norvasc Tablet) (05/12/20 18:00) Amlodipine Tablet (Norvasc Tablet) (05/13/20 09:00) Consult Cardiology (05/12/20 21:03) Famotidine Tablet (Pepcid Tablet) (05/12/20 21:00) Consult Urology (05/13/20 06:06) Tamsulosin Capsule (Flomax Capsule) (05/13/20 18:00) Bethanechol Tablet (Urecholine Tablet) (05/13/20 11:00) Patient Visit (05/13/20 ) Functional Activities, Ea 15 (05/13/20 ) Rehab Nursing Orders: Ongoing Assess. of Cognitive Status, Ongoing Assess. of Function Status, Bladder Management, Bladder Scan, Bladder Training, Bowel Management, Bowel Training, Disease Management & Educaiton, DVT Prophylaxis, Fall Prevention, Fluid/Electrolyte/Nutrition Mgmt, Infection Prevention, Medication Management & Education, Management of Risks & Complications, Manag ement of Skin Intergrity, Nutrition Management, Pain Management, Patient/Family Support, Safety Management, Swallow Precautions Intensity of Therapy to be met Patient to be seen: Min.3h per day/5 of 7d PT IPOC Problem List: Activity Tolerance, Functional Strength, Safety, Balance, Gait, Transfer, Bed Mobility, ROM Treatment Plan: Continue Plan of Care Bed Mobility, Education, Functional Activity Rob[place], Functional Strength, Group Therapy, Gait, Safety, Therapeutic Exercise, Transfers Treatment Duration: May 13, 2020 Frequency: At least 5 of 7 days/Wk (IRF) Estimated Hrs Per Day: 1.5 hours per day OT IPOC Problems: Decreased Activ Tolerance, Decreased UE Strength, Dependent Transfers, Edema, Impaired Bed Mobility, Impaired Cognition, Impaired Coordination, Impaired Funct Balance, Impaired I ADL's, Impaired Self-Care Skills, Restricted Funct UE ROM, Visual-Perceptual Deficit OT Treatment, Training and Edu: Yes Plan of Care: ADL Retraining, Functional Mobility, Group Exercise/Act as Ind, UE Funct Exercise/Act Treatment Duration: Jun 09, 2020 Frequency: At least 5 of 7 days/Wk (IRF) Estimated Hrs Per Day: 1.[address] IPOC Speech Therapy Treatment Plan: Continue Plan of Care Treatment Duration: May 25, 2020 Frequency: 4 times per week (Patient will receive ST 4-5x per week) Estimated Hrs Per Day: .5 hour per day Brine Tank Operator/Case Mgmt Brine Tank Operator/Case Managemen: Discharge Planning Dietitian/Student Finance Advisor Dietitian/Student Finance Advisor to monitor nutritional status and make changes and/or recommendations as needed and work with speech pathology on dietary upgrades as the occur. Physician IPOC Medical Issues being managed closely and that require the 24 hour availability of a physician: Recent catastrophic CVA with dysphagia, expressive aphasia, right sided dominant weakness will be at high risk for aspiration and other decompensation while recovering Medical Issues: Bowel/Bladder Function, DVT Prophylaxis, Falls Precautions, Fluid/Electrolyte/Nutrition Balance, Infection Protection, Pain Management, Swallowing Precautions Brief Synthesis of Preadmission Screen, Post-Admission Evaluation, and Therapy Evaluations: PT OT ST will all focus on regaining more function of right side flaccidity and increase the use of AD in order to lessen the burden on caretakers in the future Medical Prognosis: Fair Anticipated Length of Stay: 14 days BECKI WAGNER DO May 13, 2020 06:11
[2020-05-13 06:31] VITALS: BP 131/63
[2020-05-13 06:34] LABS: BASOPHILS % (AUTO) 1 % (0-10); EOSINOPHILS # (AUTO) 0.1 10^3/uL (0.0-0.3); EOSINOPHILS % (AUTO) 2 % (0-10); HEMATOCRIT 40 % (35-52); HEMOGLOBIN 12.2 g/dL (11.5-16.0); LYMPHOCYTES # (AUTO) 1.6 10^3/uL (1.0-4.0); LYMPHOCYTES % (AUTO) 27 % (12-44); MEAN CORPUSCULAR HEMOGLOBIN 29 pg (25-34); MEAN CORPUSCULAR HGB CONC 30 g/dL (32-36); MEAN CORPUSCULAR VOLUME 94 fL (80-99); MEAN PLATELET VOLUME 9.6 fL (9.0-12.2); MONOCYTES # (AUTO) 0.6 10^3/uL (0.0-1.0); MONOCYTES % (AUTO) 10 % (0-12); NEUTROPHILS # (AUTO) 3.5 10^3/uL (1.8-7.8); NEUTROPHILS % (AUTO) 61 % (42-75); PLATELET COUNT 346 10^3/uL (130-400); WHITE BLOOD COUNT 5.8 10^3/uL (4.3-11.0)
[2020-05-13 07:06] LABS: ALANINE AMINOTRANSFERASE 31 U/L (0-55); ALBUMIN 3.8 GM/DL (3.2-4.5); ALKALINE PHOSPHATASE 106 U/L (40-136); BILIRUBIN,TOTAL 0.3 MG/DL (0.1-1.0); BUN/CREATININE RATIO 21; CALCIUM 9.3 MG/DL (8.5-10.1); CARBON DIOXIDE 23 MMOL/L (21-32); CHLORIDE 102 MMOL/L (98-107); CREATININE SERUM 0.58 MG/DL (0.60-1.30); GFR ESTIMATED > 60; GLUCOSE 105 MG/DL (70-105); POTASSIUM 4.2 MMOL/L (3.6-5.0); SODIUM 139 MMOL/L (135-145)
[2020-05-13] MEDS: RT-ALBUTEROL/IPRATROPIUM 3 ML (DUONEB) VIAL IH SCH ×2 (08:02→23:44)
[2020-05-13] MEDS: RT-BUDESONIDE NEBS 0.5 MG/2ML (PULMICORT) AMP IH SCH ×2 (08:02→23:44)
--- NOTE | 2020-05-13 08:15 | NUR ---
Smoking Cessation order rec'd. After review of pt chart, it's noted patient is an insulin dependent diabetic who has suffered a left sided CVA and currently has expressive aphasia. Rapport established. Short discussion with patient about her smoking status, she mentions she cannot remember if she smokes or not. When I asked her about having diabetes, she recalls that she does, but does not recall how long she has dealt with it. Diabetic Education basics, Smoking Cessation basics, and the link between heart disease and diabetes pamphlets left at bedside table with patient. Explained to patient I will visit with her again next week, and she should try to review the pamphlets over the weekend. Patient voiced understanding. Comfort measures provided, call light explained, placed within reach for patient use.
[2020-05-13] MEDS: DOCUSATE SODIUM 100 MG (COLACE) CAP PO SCH ×2 (08:42→22:08)
[2020-05-13] MEDS: SENNA W/DOCUSATE (SENOKOT S) TABLET PO SCH ×2 (08:42→22:08)
[2020-05-13] MEDS: CARVEDILOL 3.125 MG (COREG) TABLET PO SCH ×2 (08:42→22:07)
[2020-05-13] MEDS: FAMOTIDINE 20 MG (PEPCID) TABLET PO SCH ×2 (08:42→22:08)
[2020-05-13] MEDS: amLODIPine 5 MG (NORVASC) TAB PO SCH (08:42)
[2020-05-13] MEDS: ASPIRIN 81 MG CHEW (CHILDREN'S ASA) PO SCH (08:42)
[2020-05-13] MEDS: polyethylene glycoL POWDER 17 GM (MIRALAX) PACK PO SCH ×2 (08:54→22:05)
--- NOTE | 2020-05-13 10:40 | CONSULTATION REPORT ---
DATE OF SERVICE: 05/13/2020 ATTENDING PHYSICIAN: Dr. Velazquez. SUMMARY: A 75-year-old white lady who about three weeks ago underwent a heart bypass followed by a stroke affecting her left brain with right-sided weakness and urinary retention. I reviewed her history and physical by Dr. Velazquez. The patient denies any voiding symptoms prior to this episode, urinary incontinence or retention. IMPRESSION: Urinary retention, neurogenic bladder secondary to CVA. PLAN: Started on Flomax 0.4 mg daily and Urecholine 10 mg q.i.d. before meals and at bedtime. Watch for side effects, mostly wheezes and shortness of breath. In three days, we will give her a trial of voiding and manage accordingly. Job ID: [id number] DocumentID: [id number] Dictated Date: 05/13/2020 09:36:16 Origination Specialist Date: 05/13/2020 10:39:46 Dictated By: TANIA MENDEZ MD
[2020-05-13] MEDS: ALPRAZolam 0.25 MG (XANAX) TAB PO PRN (10:41)
--- NOTE | 2020-05-13 10:41 | NUR ---
FELY FOR C/O ANXIETY
--- NOTE | 2020-05-13 11:14 | Occupational Ther Daily Note ---
OT Current Status-Daily Note Subjective Pt alert, lying in bed. Pt agrees to therapy. Difficult to assess pain or orientation. Mental Status/Objective Patient Orientation: Person, Place, Time, Situation Attachments: Villanueva Catheter, IV ADL-Treatment 1st TREATMENT-PT/OT cotreat ([id number]), skills of 2 clinicians required for skilled instruction and care due to pt's decreased mobility, impulsivity and decreased balance issues. PT focusing on transfers, mobility and standing. OT focusing on ADLs, R UE placement during mobility and standing. Pt requires assist to don/doff socks. Assist x1 for supine to EOB. Pt requires assist to thread briefs over feet. Pt incontinent of bowel, transfer to BSC and assist to manipulate clothing. Assist x1 to stand assist x1 to cleanse self after toileting. Pt educated on w/c mobility and using B LE and L UE to propel chair. Pt requires verbal and physical cues to continue to propel w/c with correct technique and to keep from running into objects. After set up, pt able to use swab with toothpaste to brush teeth. Assist to lean forward to spit and cleanse mouth. Pt able to stand at parallel bars with PT assisting with standing balance and OT assisting with R UE placement and wt bearing. Pt demonstrates minimal movement in tricep and with relocation commissioner. 2nd TREATMENT-Pt unable to manipulate eating utensils to feed self. Pt is able to chose which item she wants to eat verbally then will lean forward and close mouth over spoon and pull off food with lips. Pt is able to to bring cup to mouth with assist to position straw and close assist. Pt demonstrated movement throughout R UE though fatigued quickly. After session pt sitting in recliner with call light/phone in reach. All needs met in room. Therapy Code Descriptions/Definitions Functional [place] Measure: 0=Not Assessed/NA 4=Minimal Assistance 1=Total Assistance 5=Supervision or Setup 2=Maximal Assistance 6=Modified [place] 3=Moderate Assistance 7=Complete IndependenceSCALE: Activities may be completed with or without assistive devices. 4-Zcghohbpkx-xnnthrn completes the activity by him/herself with no assistance from a helper. 5-Set-up or Clean-up Assistance-helper sets up or cleans up; patient completes activity. [place] assists only prior to or following the activity. 4-Supervision or Touching Assistance-helper provides verbal cues and/or touching/steadying and/or contact guard assistance as patient completes activity. Assistance may be provided throughout the activity or intermittently. 3-Partial/Moderate Assistance-helper does LESS THAN HALF the effort. [place] lifts, holds or supports trunk or limbs, but provides less than half the effort. 2-Substantial/Maximal Assistance-helper does MORE THAN HALF the effort. [place] lifts or holds trunk or limbs and provides more than half the effort. 0-Ktozljqen-nnjkdh does ALL the effort. Patient does none of the effort to complete the activity. Or, the assistance of 2 or more helpers is required for the patient to complete the activity. If activity was not attempted, code reason: 7-Patient Refused. 9-Not Applicable-not attempted and the patient did not perform the activity before the current illness, exacerbation or injury. 10-Not Attempted due to Environmental Limitations-(lack of equipment, weather restraints, etc.). 88-Not Attempted due to Medical Conditions or Safety Concerns. Eating (QC): 2 Oral Hygiene (QC): 3 Lower Body Dressing (QC): 1 On/Off Footwear: 2 Toileting Hygiene (QC): 1 Toilet Transfer (QC): 1 OT Short Term Goals Short Term Goals Time Frame: May 26, 2020 Eatin Oral hygiene: 3 Toileting hygiene: 3 Shower/bathe self: 3 Upper body dressin Lower body dressin Putting on/taking off footwear: 3 OT Fpc Goals Fpc Goals Time Frame: Jun 09, 2020 Eating (QC): 4 Oral Hygiene (QC): 4 Toileting Hygiene (QC): 3 Shower/Bathe Self (QC): 3 Upper Body Dressing (QC): 5 Lower Body Dressing (QC): 4 On/Off Footwear (QC): 4 Additional Goals: 1-Demonstrate ADL Tasks, 2-Verbalize Understanding, 3- ImproveStrength/[place] 1=Demonstrate adherence to instructed precautions during ADL tasks. 2=Patient will verbalize/demonstrate understanding of assistive devices/modifications for ADL. 3=Patient will improve strength/tolerance for activity to enable patient to perform ADL's. OT Education/Plan Problem List/Assessment Assessment: Decreased Activ Tolerance, Decreased Safety Aware, Decreased UE Strength, Impaired Bed Mobility, Impaired Cognition, Impaired Coordination, Impaired Funct Balance, Impaired I ADL's, Impaired Self-Care Skills, Restricted Funct UE ROM, Visual-Perceptual Deficit Discharge Recommendations Plan/Recommendations: Continue POC Treatment Plan/Plan of Care Patient would benefit from OT for education, treatment and training to promote independence in ADL's, mobility, safety and/or upper extremity function for ADL's. Plan of Care: ADL Retraining, Functional Mobility, Group Exercise/Act as Ind, UE Funct Exercise/Act Treatment Duration: Jun 09, 2020 Frequency: At least 5 of 7 days/Wk (IRF) Estimated Hrs Per Day: 1.5 hours per day Agreement: Yes Rehab Potential: Fair Time/GCodes Start Time: 10:00 ([id number]) Stop Time: 13:30 ([id number]) Total Time Billed (hr/min): 90 Billed Treatment Time 2 visits-ADL 1 (20 min) FA 5 (70 min) co-treat with PT [id number], individual [id number] MARGOT WADDELL May 13, 2020 11:14
--- NOTE | 2020-05-13 11:26 | Physical Therapy Daily Note ---
PT Daily Note-Current Subjective Pt presents supine in bed. Pt agrees to PT. Pt reports no pain. Appearance At conclusion of PT treatment patient is left in recliner with tray, call button, all needs met and chair alarm on. Mental Status Patient Orientation: Person, Non-Verbal/Aphasic, Eyes Open, Situation Attachments: Villanueva Catheter Transfers SCALE: Activities may be completed with or without assistive devices. 1-Fhhvvqkgxv-zjgkqhu completes the activity by him/herself with no assistance f rom a helper. 5-Set-up or Clean-up Assistance-helper sets up or cleans up; patient completes activity. Coleman assists only prior to or following the activity. 4-Supervision or Touching Assistance-helper provides verbal cues and/or touching/steadying and/or contact guard assistance as patient completes activity. Assistance may be provided throughout the activity or intermittently. 3-Partial/Moderate Assistance-helper does LESS THAN HALF the effort. Coleman lifts, holds or supports trunk or limbs, but provides less than half the effort. 2-Substantial/Maximal Assistance-helper does MORE THAN HALF the effort. Coleman lifts or holds trunk or limbs and provides more than half the effort. 9-Spriynkfc-bglaby does ALL the effort. Patient does none of the effort to complete the activity. Or, the assistance of 2 or more helpers is required for the patient to complete the activity. If activity was not attempted, code reason: 7-Patient Refused. 9-Not Applicable-not attempted and the patient did not perform the activity before the current illness, exacerbation or injury. 10-Not Attempted due to Environmental Limitations-(lack of equipment, weather restraints, etc.). 88-Not Attempted due to Medical Conditions or Safety Concerns. Lying to Sitting/Side of Bed(Q: 3 Sit to Stand (QC): 3 Chair/Dkl-re-Pyjfv Xfer(QC): 3 Min assist with sit to stand. Mod assist with lying-> EOB and chair->chair transfers. Weight Bearing Right Lower Extremity: Right Full Weight Bearing Left Lower Extremity: Left Full Weight Bearing Wheelchair Training Does the Pt Use a Wheelchair?: Yes Wheel 50 ft with 2 turns (QC): 2 Wheel 150 ft (QC): 2 Pt is able to use LUE to propel chair when cued; pt then given max assist for supplemental propelling and steering. Exercises Seated Therapy Exercises: Ankle pumps (RLE) Standing balance Treatments WC mobility, Transfer training, standing balance Assessment Current Status: Poor Progress Unable to fully assess the patient's needs due to their limitations with communication. Pt is able to bear weight and stand with CGA, but struggles with transfers. Pt appears restless and reports she is anxious (nurse gives her some meds for this but she seems to be anxious all the time). Treatment is difficult due to patient's anxiety which could also be fatigue or motivational issues, it is hard to say because the patient has trouble communicating. She also seems to have impaired coordination or proprioception, or possibly depth perception, testing cant really be done due to patient's communication issues and poor ability to follow directions. Co-treated with OT due to pt's limitations in strength, mobility, and coordination of UEs and LEs. PT focused on standing balance and mobility while OT focused on UEs and ADLs. PT Short Term Goals Short Term Goals Time Frame: May 19, 2020 Roll Left & Right: 4 Sit to lyin Lying to sitting on side of be: 3 Chair/htt-yw-blktf transfer: 3 Walk 10 feet: 3 Does pt use a wc or scooter: Yes Wheel 50ft w/2 turns: 3 Wheel 150 feet: 3 PT Warehouse Material Handler Goals Warehouse Material Handler Goals PT Warehouse Material Handler Goals Time Frame: Jun 02, 2020 Roll Left & Right (QC): 6 Sit to Lying (QC): 6 Lying-Sitting on Side/Bed(QC): 6 Sit to Stand (QC): 4 Chair/Ufs-zr-Iavtk Xfer(QC): 4 Toilet Transfer (QC): 4 Car Transfer (QC): 4 Does the Patient Walk: Yes Walk 10 feet (QC): 3 Walk 50ft with 2 Turns (QC): 3 Walk 150 ft (QC): 88 Walking 10ft on Uneven Surface: 3 1 Step (curb) (QC): 3 4 Steps (QC): 88 12 Steps (QC): 88 Picking up an Object (QC): 88 Does the Pt use WC or Scooter?: Yes Wheel 50 feet with 2 turns (QC: 6 Wheel 150 feet: 6 PT Plan Problem List Problem List: Activity Tolerance, Functional Strength, Safety, Balance, Gait, Transfer, Bed Mobility, ROM Treatment/Plan Treatment Plan: Continue Plan of Care Treatment Plan: Bed Mobility, Education, Functional Activity Robbin, Functional Strength, Group Therapy, Gait, Safety, Therapeutic Exercise, Transfers Treatment Duration: Jun 03, 2020 Frequency: At least 5 of 7 days/Wk (IRF) Estimated Hrs Per Day: 1.5 hours per day Patient and/or Family Agrees t: Yes Safety Risks/Education Patient Education: Transfer Techniques, Correct Positioning, Safety Issues Teaching Recipient: Patient Teaching Methods: Demonstration, Discussion Response to Teaching: Reinforcement Needed Time/GCodes Time In: 1000 Time Out: 1100 Total Billed Treatment Time: 90 Total Billed Treatment 1 visit FA 90' co-treated for 75' from [id number] SHREYA FIGUEREDO PT May 13, 2020 11:26
--- NOTE | 2020-05-13 14:41 | Consultation-Cardiology ---
HPI-Cardiology Cardiology Consultation Date of Consultation 05/13/20 Date of Admission Time Seen by Provider: 14:36 Indication: coronary artery disease HPI 75-year-old lady with history of CABG underwent surgery on April 24, 2020 postoperatively 8 was reported that patient had a stroke with right hemiparesis, was [facility] the [facility] stroke then she was transferred to our institution. Patient is a poor historian unable to provide history, doesn't recall most of the events, the reports regarding her bypass surgery and the initial outcome is not available it was reported that she had absent pulse in her leg and treated conservatively but currently she has a palpable pulse Home Medications & Allergies Allergies: Coded Allergies: No Known Drug Allergies (Unverified , 05/12/20) Home Medication List Reviewed: Yes TMN-Hyoqns-Rkwebu Hx Patient Social History Marital Status: single Employed/Student: student, part-time Alcohol Use: Denies Use Recreational Drug Use: No Smoking Status: Current Everyday Smoker Type Used: Cigarettes Recent Foreign Travel: No Recent Infectious Disease Expo: No Recent Hopitalizations: Yes (CVA AND BYPASS SURGERY) Physical Abuse Screen: No Sexual Abuse: No Immunizations Up To Date Date of Influenza Vaccine: May 10, 2020 Past Medical History Discussed below Family Medical History Family Medical Hx Noncontributory Family History: Patient reports no known family medical history. Review of Systems-General Review of Systems Constitutional: see HPI, malaise, weakness, other (unable to provide review of systems) Respiratory: see HPI; No cough, No dyspnea on exertion, No hemoptysis, No o rthopnea, No phlegm, No short of breath, No stridor, No wheezing, No other Cardiovascular: see HPI; No chest pain, No edema, No Hx of Intervention, No palpitations, No syncope, No vascular heart diseas, No other Gastrointestinal: constipation Genitourinary: other (retention) Psychiatric/Neurological: Anxiety, Depressed, Numbness, Paresthesia All Other Systems Reviewed Negative Unless Noted: Yes Reviewed Test Results Reviewed Test Results Lab Laboratory Tests Test 05/12/20 16:54 05/12/20 20:44 05/13/20 05:25 05/13/20 06:22 Range/Units Glucometer 73 185 H 50 *L 70-110 MG/DL White Blood Count 5.8 4.3-11.0 10^3/uL Red Blood Count 4.25 3.80-5.11 10^6/uL Hemoglobin 12.2 11.5-16.0 g/dL Hematocrit 40 35-52 % Mean Corpuscular Volume 94 80-99 fL Mean Corpuscular Hemoglobin 29 25-34 pg Mean Corpuscular Hemoglobin Concent 30 L 32-36 g/dL Red Cell Distribution Width 15.6 H 10.0-14.5 % Platelet Count 346 130-400 10^3/uL Mean Platelet Volume 9.6 9.0-12.2 fL Immature Granulocyte % (Auto) 0 % Neutrophils (%) (Auto) 61 42-75 % Lymphocytes (%) (Auto) 27 12-44 % Monocytes (%) (Auto) 10 0-12 % Eosinophils (%) (Auto) 2 0-10 % Basophils (%) (Auto) 1 0-10 % Neutrophils # (Auto) 3.5 1.8-7.8 10^3/uL Lymphocytes # (Auto) 1.6 1.0-4.0 10^3/uL Monocytes # (Auto) 0.6 0.0-1.0 10^3/uL Eosinophils # (Auto) 0.1 0.0-0.3 10^3/uL Basophils # (Auto) 0.0 0.0-0.1 10^3/uL Immature Granulocyte # (Auto) 0.0 0.0-0.1 10^3/uL Sodium Level 139 135-145 MMOL/L Potassium Level 4.2 3.6-5.0 MMOL/L Chloride Level 102 98-107 MMOL/L Carbon Dioxide Level 23 21-32 MMOL/L Anion Gap 14 5-14 MMOL/L Blood Urea Nitrogen 12 7-18 MG/DL Creatinine 0.58 L 0.60-1.30 MG/DL Estimat Glomerular Filtration Rate > 60 BUN/Creatinine Ratio 21 Glucose Level 105 70-105 MG/DL Calcium Level 9.3 8.5-10.1 MG/DL Corrected Calcium 9.5 8.5-10.1 MG/DL Total Bilirubin 0.3 0.1-1.0 MG/DL Aspartate Amino Transf (AST/SGOT) 22 5-34 U/L Alanine Aminotransferase (ALT/SGPT) 31 0-55 U/L Alkaline Phosphatase 106 40-136 U/L Total Protein 7.0 6.4-8.2 GM/DL Albumin 3.8 3.2-4.5 GM/DL Test 05/13/20 06:47 05/13/20 10:56 Range/Units Glucometer 116 H 89 70-110 MG/DL Physical Exam Physical Exam Vital Signs Vital Signs - First Documented 05/12/20 15:00 Temp 35.9 Pulse 80 Resp 20 B/P (MAP) 140/81 (100) Pulse Ox 99 O2 Delivery Nasal Cannula O2 Flow Rate 1.50 Capillary Refill : Less Than 3 Seconds Height, Weight, BMI Height: '" Weight: lbs. oz. kg; 25.27 BMI Method: General Appearance: No Apparent Distress, Anxious, Chronically ill, Thin Eyes: Bilateral Eye Normal Inspection, Bilateral Eye PERRL HEENT: PERRL/EOMI, Normal ENT Inspection, Pharynx Normal Neck: Full Range of Motion, Normal Inspection, Non Tender, Supple, Carotid Bruit Respiratory: Chest Non Tender, Lungs Clear, No Accessory Muscle Use, No Respiratory Distress, Decreased Breath Sounds Cardiovascular: Regular Rate, Rhythm, No Edema, No Gallop, No JVD, No Murmur, Normal Peripheral Pulses Gastrointestinal: Normal Bowel Sounds, No Organomegaly, No Pulsatile Mass, Non Tender, Soft Back: Normal Inspection, No CVA Tenderness, No Vertebral Tenderness Extremity: Normal Capillary Refill, Normal Inspection, Normal Range of Motion (except right sided weakness), Non Tender, No Calf Tenderness, No Pedal Edema Neurologic/Psychiatric: Alert, Normal Mood/Affect, Abnormal tire buster II-XII, Aphasia, Facial Droop, Motor Weakness (right sided flaccidity) Skin: Normal Color, Warm/Dry Lymphatic: No Adenopathy A/P-Cardiology Admission Diagnosis CVA Coronary artery disease Hypertension Hyperlipidemia Assessment/Plan Status post CVA with residual right hemiparesis, receiving PT OT, managed by Dr. Velazquez Coronary artery disease status post CABG 3. Continue to monitor at this time. Next Hypertension, continue current medication monitor blood pressure Hyperlipidemia, monitor lipids Questionable peripheral arterial disease with ischemic event after her bypass has improved after conservative management, continue to monitor Diabetes mellitus, followed and managed by primary care physician Debility, receiving physical therapy Clinical Quality Measures DVT/VTE Risk/Contraindication: Risk Factor Score Per Nursin RFS Level Per Nursing on Admit: 4+=Very High LOU KASPER MD May 13, 2020 14:41
[2020-05-13] MEDS: BETHANECHOL 10 MG (URECHOLINE) TAB PO SCH ×3 (15:01→22:08)
--- NOTE | 2020-05-13 15:05 | NUR ---
CM/SS ADMISSION Patient was admitted to ARU from [facility] in [place] 05/12/20 for CVA with right sided deficits. Her daughter Rula reports she presented to [facility] 03/28 and was transferred to [facility] 03/29. She has been hospitalized ever since. Rula reports she had a CVA following a CABG x 4, prior to that she was completely independent of all activities. Additional diagnoses include, in part, dysarthria, dysphagia, PEG, expressive aphasia, COPD, tobaccoism, CAD, diabetes, retention of urine. Patient transfers include [facility] to [facility], then ARU. Daughter Rula Junior has moved forward to create a room at her home for patient, the plan is that she will reside there with Rula and her spouse. Prior to that patient resided alone and was completely self sufficient. PCP: Not confirmed at this time, Rula is unsure who patient's physician is. She indicates patient was on diabetic oral medication. Indications are she had history with [facility] in [place] but nursing reports they called and were told patient had not been there since 2016. PHARMACY: Unknown at this time. Family to explore home Rx to assist with prescribing physician and supplying pharmacy as it relates to moving forward. INSURANCE: Patient has Medicare, Rula believes [facility] is applying for Medicaid for patient, hospital contact is Brooke, , will explore. Assume they are applying in [place] and patient will be a [place] resident. DME: Patient has none, never needed. BARRIERS TO DISCHARGE PLANNING: Daughter is preparing living space for patient in her home, patient's maximum level of independence will be crucial. 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 Coordination of living environment for patient's specific performance and safety. Care and treatment should include patient's emotional/behavior health well being. She has gone from fully independent life to current disabilities. Rula said the neurologist told them she would never drive or be able to live alone and they did discuss this with patient. Rula describes patient was very emotional with this news. CONTACTS: Emanuel Nicolas, Son [id number] [place] [address] Rula Junior, Daughter [address] [place] [address] [phone] Patient does not have a POA at this time; however, Rula's spouse is [facility], they are tentatively pursuing a Guardianship for patient. Rula understands the purpose and process of the weekly patient care conference and that her mom's first review will be Saturday, May 18, 2020.
[2020-05-13 16:53] VITALS: BP 135/66
--- NOTE | 2020-05-13 17:35 | NUR ---
"RD ASSESSMENT PMHx: CAD; DM: COPD; dysphagia PT INTERACTION: Pt was semi-awake and pleasant during dietary consult for MST score. Pt states current appetite is fair. Note avg PO intake 62% x2meal, per chart review. Note pt has hx of dysphagia and has a PEG tube, per chart review. Pt states following a regular diet at home, and has no issues with chewing/swallowing food. Pt states no recent issues with nausea, vomiting, constipation, or diarrhea, and that she is unsure of her last BM. Note pt currently on bowel regimen of colace BID, senna BID, and miralax BID, per chart review. Pt states no recent wt changes. Note unable to determine recent hx, per chart review. Pt states unsure of current DM management. Note unable to determine recent HbA1c, per chart review. Upon visual assessment, pt appears to be adequately nourished with no visible signs of muscle/fat wasting and a BMI of 25.3 (Normal BMI for age). Given wt hx, visual assessment, and PO intake, pt does not meet criteria for malnutrition per ASPEN guidelines. ABNORMAL NUTRITION-RELATED LAB VALUES LOW: cr 0.58; HIGH: glu 116 Est. kcal needs: 9819-2211 kcal | 25-30 kcal/kg Est. Pro needs: 57-68 g Pro | 1.0-1.2 g Pro/kg PES STATEMENT: Inadequate oral intake (NI-2.1) related to loss of appetite as evidenced by pt interview and avg PO intake 62% x2meal. INTERVENTION: Continue with current diet order of CHO 60g/m 3snack diet, with modifier of DYS Mechanically Altered. Pt may benefit from nutrition supplementation if PO intake declines. Did not offer diet education at this time, as pt fell asleep at end of assessment. Will attempt to offer when pt is more awake. Will continue to follow and reassess as pt needs, intake, and status change. Mukesh Ontiveros, MS RD LD"
[2020-05-13] MEDS: TAMSULOSIN 0.4 MG (FLOMAX) CAP PO SCH (17:44)
[2020-05-14 06:00] VITALS: BP 162/61
[2020-05-14] MEDS: inSUlin ASPART (NovoLOG) 1 UNIT/0.01 ML (CHARGE PER UNIT) SC SCH ×4 (06:14→20:14)
[2020-05-14] MEDS: BETHANECHOL 10 MG (URECHOLINE) TAB PO SCH ×4 (06:26→22:16)
[2020-05-14] MEDS: RT-BUDESONIDE NEBS 0.5 MG/2ML (PULMICORT) AMP IH SCH ×2 (07:57→20:15)
[2020-05-14] MEDS: RT-ALBUTEROL/IPRATROPIUM 3 ML (DUONEB) VIAL IH SCH ×2 (07:57→20:12)
[2020-05-14] MEDS: ASPIRIN 81 MG CHEW (CHILDREN'S ASA) PO SCH (08:39)
[2020-05-14] MEDS: amLODIPine 5 MG (NORVASC) TAB PO SCH (08:40)
[2020-05-14] MEDS: SENNA W/DOCUSATE (SENOKOT S) TABLET PO SCH ×2 (08:40→22:17)
[2020-05-14] MEDS: FAMOTIDINE 20 MG (PEPCID) TABLET PO SCH ×2 (08:40→22:16)
[2020-05-14] MEDS: polyethylene glycoL POWDER 17 GM (MIRALAX) PACK PO SCH ×2 (08:40→20:30)
[2020-05-14] MEDS: CARVEDILOL 3.125 MG (COREG) TABLET PO SCH ×2 (08:40→22:16)
[2020-05-14] MEDS: DOCUSATE SODIUM 100 MG (COLACE) CAP PO SCH ×2 (08:40→22:16)
[2020-05-14] MEDS: ALPRAZolam 0.25 MG (XANAX) TAB PO PRN (10:03)
--- NOTE | 2020-05-14 12:43 | Physical Therapy Daily Note ---
PT Daily Note-Current Subjective Pt. in bed, smiles, some speaking, agreeable to Ex and up in chair Pain Location: No Pain Reported Transfers SCALE: Activities may be completed with or without assistive devices. 0-Mtixnncccy-vggqtfa completes the activity by him/herself with no assistance from a helper. 5-Set-up or Clean-up Assistance-helper sets up or cleans up; patient completes activity. Shiloh assists only prior to or following the activity. 4-Supervision or Touching Assistance-helper provides verbal cues and/or touching/steadying and/or contact guard assistance as patient completes activity. Assistance may be provided throughout the activity or intermittently. 3-Partial/Moderate Assistance-helper does LESS THAN HALF the effort. Shiloh lifts, holds or supports trunk or limbs, but provides less than half the effort. 2-Substantial/Maximal Assistance-helper does MORE THAN HALF the effort. Shiloh lifts or holds trunk or limbs and provides more than half the effort. 0-Aaqehjmre-fgkhcj does ALL the effort. Patient does none of the effort to complete the activity. Or, the assistance of 2 or more helpers is required for the patient to complete the activity. If activity was not attempted, code reason: 7-Patient Refused. 9-Not Applicable-not attempted and the patient did not perform the activity before the current illness, exacerbation or injury. 10-Not Attempted due to Environmental Limitations-(lack of equipment, weather restraints, etc.). 88-Not Attempted due to Medical Conditions or Safety Concerns. mod assist sup to sit, sitting balance CGA to min, Sit to stand mod assist, SPT bed to recliner mod assist Weight Bearing Right Lower Extremity: Right Full Weight Bearing Left Lower Extremity: Left Full Weight Bearing Exercises Supine Ex: Ankle pumps, Quad Set, Heel Slides, Hip abd/add Supine Reps: 12 Seated Therapy Exercises: Ankle pumps, Sit to stand, Long arc quads, Hip abd/add Seated Reps: 8 Treatments sit to stand , standing and sitting balance, TRFs Assessment nurse present after in chair, pt. with dyspnea, O2 sats>90%, nurse present to assess PT Short Term Goals Short Term Goals Time Frame: May 19, 2020 Roll Left & Right: 4 Sit to lyin Lying to sitting on side of be: 3 Chair/uxv-cn-izwoq transfer: 3 Walk 10 feet: 3 Does pt use a wc or scooter: Yes Wheel 50ft w/2 turns: 3 Wheel 150 feet: 3 PT Custodial Goals Custodial Goals PT Clinical Research Management Associate Goals Time Frame: Jun 02, 2020 Roll Left & Right (QC): 6 Sit to Lying (QC): 6 Lying-Sitting on Side/Bed(QC): 6 Sit to Stand (QC): 4 Chair/Ioy-em-Zwssb Xfer(QC): 4 Toilet Transfer (QC): 4 Car Transfer (QC): 4 Does the Patient Walk: Yes Walk 10 feet (QC): 3 Walk 50ft with 2 Turns (QC): 3 Walk 150 ft (QC): 88 Walking 10ft on Uneven Surface: 3 1 Step (curb) (QC): 3 4 Steps (QC): 88 12 Steps (QC): 88 Picking up an Object (QC): 88 Does the Pt use WC or Scooter?: Yes Wheel 50 feet with 2 turns (QC: 6 Wheel 150 feet: 6 PT Plan Treatment/Plan Treatment Plan: Continue Plan of Care Treatment Plan: Bed Mobility, Education, Functional Activity Robbin, Functional Strength, Group Therapy, Gait, Safety, Therapeutic Exercise, Transfers Treatment Duration: May 13, 2020 Frequency: At least 5 of 7 days/Wk (IRF) Estimated Hrs Per Day: 1.5 hours per day Patient and/or Family Agrees t: Yes Safety Risks/Education Patient Education: Transfer Techniques, Correct Positioning Teaching Recipient: Patient Time/GCodes Time In: 940 Time Out: 1005 Total Billed Treatment Time: 25 Total Billed Treatment 1,FA15,EX10 JANA OROSCO MANAGER GRAPHIC May 14, 2020 12:42
--- NOTE | 2020-05-14 16:34 | PM&R Progress Note ---
Subjective HPI/CC On Admission Date Seen by Provider: May 14, 2020 Time Seen by Provider: 06:00 Subjective/Events-last exam 05/14/20: Patient denies pain Working well with structured therapies Villanueva cath still in place will need to DC soon Working on BM regimen Patient doing well Settling in well No pain reported Working with PT OT and ST Eating a bit more without aspiration No falls Checked meds and labs Conferred with RN Reviewed therapy notes Review of Systems General: Fatigue, Malaise Neurological: Weakness, Numbness, Incoordination, Change in speech Objective Exam Vital Signs Vital Signs Date Time Temp Pulse Resp B/P (MAP) Pulse Ox O2 Delivery O2 Flow Rate FiO2 05/14/20 09:00 Room Air 05/14/20 06:00 36.3 88 16 162/61 (68) 94 1.50 Capillary Refill : Less Than 3 Seconds General Appearance: No Apparent Distress, Anxious, Chronically ill, Thin HEENT: PERRL/EOMI, Normal ENT Inspection, Pharynx Normal Neck: Full Range of Motion, Normal Inspection, Non Tender, Supple, Carotid Br uit Respiratory: Chest Non Tender, Lungs Clear, No Accessory Muscle Use, No Respiratory Distress, Decreased Breath Sounds Cardiovascular: Regular Rate, Rhythm, No Edema, No Gallop, No JVD, No Murmur, Normal Peripheral Pulses Gastrointestinal: Normal Bowel Sounds, No Organomegaly, No Pulsatile Mass, Non Tender, Soft Back: Normal Inspection, No CVA Tenderness, No Vertebral Tenderness Extremity: Normal Capillary Refill, Normal Inspection, Normal Range of Motion (except right sided weakness), Non Tender, No Calf Tenderness, No Pedal Edema Neurologic/Psychiatric: Alert, No Motor/Sensory Deficits, Normal Mood/Affect, 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 FIM Transfers Therapy Code Descriptions/Definitions Functional [place] Measure: 0=Not Assessed/NA 4=Minimal Assistance 1=Total Assistance 5=Supervision or Setup 2=Maximal Assistance 6=Modified [place] 3=Moderate Assistance 7=Complete IndependenceSCALE: Activities may be completed with or without assistive devices. 5-Bipootkbdj-lduotlh completes the activity by him/herself with no assistance from a helper. 5-Set-up or Clean-up Assistance-helper sets up or cleans up; patient completes activity. [place] assists only prior to or following the activity. 4-Supervision or Touching Assistance-helper provides verbal cues and/or julio césar slime/steadying and/or contact guard assistance as patient completes activity. Assistance may be provided throughout the activity or intermittently. 3-Partial/Moderate Assistance-helper does LESS THAN HALF the effort. [place] lifts, holds or supports trunk or limbs, but provides less than half the effort. 2-Substantial/Maximal Assistance-helper does MORE THAN HALF the effort. [place] lifts or holds trunk or limbs and provides more than half the effort. 0-Jizsqkrlr-jsqimu does ALL the effort. Patient does none of the effort to complete the activity. Or, the assistance of 2 or more helpers is required for the patient to complete the activity. If activity was not attempted, code reason: 7-Patient Refused. 9-Not Applicable-not attempted and the patient did not perform the activity before the current illness, exacerbation or injury. 10-Not Attempted due to Environmental Limitations-(lack of equipment, weather restraints, etc.). 88-Not Attempted due to Medical Conditions or Safety Concerns. Roll Left to Right (QC): 3 Sit to Lying (QC): 3 Sit to Stand (QC): 3 Chair/Ebs-kv-Mydus Xfer(QC): 3 Car Transfer (QC): 3 Gait Training Does the Patient Walk?: Yes Walk 10 feet (QC): 88 Walk 50 ft with 2 Turns(QC): 88 Walk 150 ft (QC): 88 Walking 10ft/uneven surface-QC: 88 Gait Assistive Device: Parallel Bars Wheelchair Training Does the Pt Use a Wheelchair?: Yes Distance: 150'x3 Wheel 50 ft with 2 turns (QC): 2 Wheel 150 ft (QC): 2 Type of Wheelchair: Manual Stair Training 1 Step (curb) (QC): 88 4 Steps (QC): 88 12 Steps (QC): 88 Balance Picking up an Object (QC): 88 ADL-Treatment Eating (QC): 2 Oral Hygiene (QC): 3 Shower/Bathe Self (QC): 2 (Pt. is able to wash her chest and right arm. She requires assistance to wash all other parts. Pt. showers while seated on shower chair.) Upper Body Dressing (QC): 88 (Pt. verbalizes that she is tired. 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 Ensure adequate anticoagulation 2. PT, OT, and AIRCRAFT PNEUDRAULICS REPAIRER eval's and treat 3. Oxygen via NC- wean as tolerated 4. Resume Home medications 5. Fall precautions 6. Dietary consult 7. DVT prophylaxis 05/13/20: Patient participating well No pain reported Continue current meds Advance diet 05/14/20: Villanueva DC soon Continue home meds Therapies to continue protocol (1) CVA (cerebral vascular accident) (2) Dysarthria (3) Dysphagia (4) PEG (percutaneous endoscopic gastrostomy) status (5) Expressive aphasia (6) Smoker (7) COPD (chronic obstructive pulmonary disease) (8) CAD (coronary artery disease) (9) Hx of CABG (10) Villanueva catheter in place (11) Retention of urine BECKI WAGNER DO May 14, 2020 16:34
[2020-05-14] MEDS: TAMSULOSIN 0.4 MG (FLOMAX) CAP PO SCH (17:24)
[2020-05-14 18:03] VITALS: BP 142/67
[2020-05-15 06:00] VITALS: BP 131/61
--- NOTE | 2020-05-15 06:15 | PM&R Progress Note ---
Subjective HPI/CC On Admission Date Seen by Provider: May 15, 2020 Time Seen by Provider: 06:00 Subjective/Events-last exam 05/15/20: Patient participating with therapy No pain reported Dr Houston consulted for james catheter 05/14/20: Patient denies pain Working well with structured therapies James cath still in place will need to DC soon Working on BM regimen Patient doing well Settling in well No pain reported Working with PT OT and ST Eating a bit more without aspiration No falls Checked meds and labs Conferred with RN Reviewed therapy notes Review of Systems General: Fatigue, Malaise Neurological: Weakness, Incoordination Objective Exam Vital Signs Vital Signs Date Time Temp Pulse Resp B/P (MAP) Pulse Ox O2 Delivery O2 Flow Rate FiO2 05/15/20 20:30 93 Room Air 05/15/20 17:16 36.0 87 16 162/69 (100) 05/14/20 07:57 2.00 Capillary Refill : Less Than 3 Seconds General Appearance: No Apparent Distress, Anxious, Chronically ill, Thin HEENT: PERRL/EOMI, Normal ENT Inspection, Pharynx Normal Neck: Full Range of Motion, Normal Inspection, Non Tender, Supple, Carotid Bruit Respiratory: Chest Non Tender, Lungs Clear, No Accessory Muscle Use, No Respiratory Distress, Decreased Breath Sounds Cardiovascular: Regular Rate, Rhythm, No Edema, No Gallop, No JVD, No Murmur, Normal Peripheral Pulses Gastrointestinal: Normal Bowel Sounds, No Organomegaly, No Pulsatile Mass, Non Tender, Soft Back: Normal Inspection, No CVA Tenderness, No Vertebral Tenderness Extremity: Normal Capillary Refill, Normal Inspection, Normal Range of Motion (except right sided weakness), Non Tender, No Calf Tenderness, No Pedal Edema Neurologic/Psychiatric: Alert, No Motor/Sensory Deficits, Normal Mood/Affect, Abnormal nutrition specialist II-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 FIM Transfers Therapy Code Descriptions/Definitions Functional [place] Measure: 0=Not Assessed/NA 4=Minimal Assistance 1=Total Assistance 5=Supervision or Setup 2=Maximal Assistance 6=Modified [place] 3=Moderate Assistance 7=Complete IndependenceSCALE: Activities may be completed with or without assistive devices. 9-Usddnhncoi-rdzyqbz completes the activity by him/herself with no assistance from a helper. 5-Set-up or Clean-up Assistance-helper sets up or cleans up; patient completes activity. [place] assists only prior to or following the activity. 4-Supervision or Touching Assistance-helper provides verbal cues and/or touching/steadying and/or contact guard assistance as patient completes activity. Assistance may be provided throughout the activity or intermittently. 3-Partial/Moderate Assistance-helper does LESS THAN HALF the effort. [place] lifts, holds or supports trunk or limbs, but provides less than half the effort. 2-Substantial/Maximal Assistance-helper does MORE THAN HALF the effort. [place] lifts or holds trunk or limbs and provides more than half the effort. 6-Ejtqwumuw-ceenkk does ALL the effort. Patient does none of the effort to com plete the activity. Or, the assistance of 2 or more helpers is required for the patient to complete the activity. If activity was not attempted, code reason: 7-Patient Refused. 9-Not Applicable-not attempted and the patient did not perform the activity before the current illness, exacerbation or injury. 10-Not Attempted due to Environmental Limitations-(lack of equipment, weather restraints, etc.). 88-Not Attempted due to Medical Conditions or Safety Concerns. Roll Left to Right (QC): 3 Sit to Lying (QC): 3 Sit to Stand (QC): 3 Chair/Uer-pk-Mwdyu Xfer(QC): 3 Car Transfer (QC): 3 Gait Training Does the Patient Walk?: Yes Walk 10 feet (QC): 88 Walk 50 ft with 2 Turns(QC): 88 Walk 150 ft (QC): 88 Walking 10ft/uneven surface-QC: 88 Gait Assistive Device: Parallel Bars Wheelchair Training Does the Pt Use a Wheelchair?: Yes Distance: 150'x3 Wheel 50 ft with 2 turns (QC): 2 Wheel 150 ft (QC): 2 Type of Wheelchair: Manual Stair Training 1 Step (curb) (QC): 88 4 Steps (QC): 88 12 Steps (QC): 88 Balance Picking up an Object (QC): 88 ADL-Treatment Eating (QC): 2 Oral Hygiene (QC): 3 Shower/Bathe Self (QC): 2 (Pt. is able to wash her chest and right arm. She requires assistance to wash all other parts. Pt. showers while seated on shower chair.) Upper Body Dressing (QC): 88 (Pt. verbalizes that she is tired. 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 Ensure adequate anticoagulation 2. PT, OT, and PATIENT CARRIER eval's and treat 3. Oxygen via NC- wean as tolerated 4. Resume Home medications 5. Fall precautions 6. Dietary consult 7. DVT prophylaxis 05/13/20: Patient participating well No pain reported Continue current meds Advance diet 05/14/20: James DC soon Continue home meds Therapies to continue protocol 05/15/20: Dr Houston appreciated Monitor BP Monitor labs (1) CVA (cerebral vascular accident) (2) Dysarthria (3) Dysphagia (4) PEG (percutaneous endoscopic gastrostomy) status (5) Expressive aphasia (6) Smoker (7) COPD (chronic obstructive pulmonary disease) (8) CAD (coronary artery disease) (9) Hx of CABG (10) James catheter in place (11) Retention of urine BECKI WAGNER DO May 15, 2020 06:15
[2020-05-15] MEDS: inSUlin ASPART (NovoLOG) 1 UNIT/0.01 ML (CHARGE PER UNIT) SC SCH ×4 (06:26→21:29)
[2020-05-15] MEDS: BETHANECHOL 10 MG (URECHOLINE) TAB PO SCH ×4 (06:32→21:30)
[2020-05-15] MEDS: RT-ALBUTEROL/IPRATROPIUM 3 ML (DUONEB) VIAL IH SCH ×2 (07:34→20:18)
[2020-05-15] MEDS: RT-BUDESONIDE NEBS 0.5 MG/2ML (PULMICORT) AMP IH SCH ×2 (07:34→20:23)
[2020-05-15] MEDS: CARVEDILOL 3.125 MG (COREG) TABLET PO SCH ×2 (09:09→21:30)
[2020-05-15] MEDS: DOCUSATE SODIUM 100 MG (COLACE) CAP PO SCH ×2 (09:09→21:30)
[2020-05-15] MEDS: SENNA W/DOCUSATE (SENOKOT S) TABLET PO SCH ×2 (09:09→21:30)
[2020-05-15] MEDS: amLODIPine 5 MG (NORVASC) TAB PO SCH (09:09)
[2020-05-15] MEDS: ASPIRIN 81 MG CHEW (CHILDREN'S ASA) PO SCH (09:09)
[2020-05-15] MEDS: FAMOTIDINE 20 MG (PEPCID) TABLET PO SCH ×2 (09:09→21:29)
--- NOTE | 2020-05-15 09:32 | NUR ---
PT'S DGTR CALLED LAST EVENING, & FACETIME'D W PT OVER LAPTOP. PT WAS THRILLED TO GET TO SEE & TALK W HER DGTR & GRANDKIDS.
--- NOTE | 2020-05-15 10:42 | Cardiology Progress Note ---
Subjective Date Seen by Provider: May 15, 2020 Time Seen by Provider: 10:41 Subjective/Events-last exam Patient was seen at bedside laying down comfortably, no new complaint Review of Systems General: No Chills, No Night Sweats, No Fatigue, No Malaise, No Appetite, No Other HEENT: No Head Aches, No Visual Changes, No Eye Pain, No Ear Pain, No Dysphasia, No Sinus Congestion, No Post Nasal Drip, No Sore Throat, No Other Pulmonary: No Dyspnea, No Cough, No Pleuritic Chest Pain, No Other Cardiovascular: No: Chest Pain, Palpitations, Orthopnea, Paroxysmal Noc. Dyspnea, Edema, Lt Headedness, Other Objective-Cardiology Exam Last Set of Vital Signs Vital Signs 05/14/20 05/15/20 05/15/20 07:57 06:00 07:40 Temp 36.6 Pulse 86 Resp 19 B/P (MAP) 131/61 (84) Pulse Ox 94 O2 Delivery Room Air O2 Flow Rate 2.00 Capillary Refill : Less Than 3 Seconds I&O Intake and Output 05/15/20 00:00 Intake Total 1030 ml Output Total 1350 ml Balance -320 ml Intake Oral 1030 ml Output Urine Total 1350 ml General: Alert, Oriented X3, Cooperative HEENT: Atraumatic, PERRLA Neck: Supple, No JVD, No Thyromegaly Lungs: Clear to Auscultation, Normal Air Movement Heart: Regular Rate, Normal S1, Normal S2, No Murmurs Abdomen: Normal Bowel Sounds, Soft, No Tenderness, No Hepatosplenomegaly, No Masses Extremities: No Clubbing, No Cyanosis, No Edema, Normal Pulses, No Tenderness/Swelling Skin: No Rashes, No Breakdown, No Significant Lesion Neuro: Normal Gait, Normal Speech, Strength at 5/5 X4 Ext, Normal Tone, Sensation Intact Psych/Mental Status: Mental Status NL, Mood NL A/P-Cardiology Admission Diagnosis CVA Coronary artery disease Hypertension Hyperlipidemia Assessment/Plan Status post CVA with residual right hemiparesis, receiving PT OT, I am adding Plavix if okay with Dr. Velazquez Coronary artery disease status post CABG 3. Continue to monitor at this time. Hypertension, continue current medication monitor blood pressure Hyperlipidemia, monitor lipids Questionable peripheral arterial disease with ischemic event after her bypass has improved after conservative management, I am adding Plavix to her current medication Diabetes mellitus, followed and managed by primary care physician Debility, receiving physical therapy Clinical Quality Measures DVT/VTE Risk/Contraindication: Risk Factor Score Per Nursin RFS Level Per Nursing on Admit: 4+=Very High LOU KASPER MD May 15, 2020 10:42
[2020-05-15] MEDS: polyethylene glycoL POWDER 17 GM (MIRALAX) PACK PO SCH ×2 (12:06→21:30)
[2020-05-15 13:28] VITALS: BP 138/64
[2020-05-15 17:16] VITALS: BP 162/69
[2020-05-15] MEDS: ALPRAZolam 0.25 MG (XANAX) TAB PO PRN (18:16)
[2020-05-15] MEDS: TAMSULOSIN 0.4 MG (FLOMAX) CAP PO SCH (18:17)
--- NOTE | 2020-05-15 19:39 | NUR ---
Pt spoke with, & saw her daughter, Rula & grandchild over Facetime tonight again. Pt really brightens up, smiles & escastic to see them.
[2020-05-16 05:57] LABS: BASOPHILS % (AUTO) 1 % (0-10); EOSINOPHILS # (AUTO) 0.2 10^3/uL (0.0-0.3); EOSINOPHILS % (AUTO) 4 % (0-10); HEMATOCRIT 43 % (35-52); HEMOGLOBIN 13.6 g/dL (11.5-16.0); LYMPHOCYTES # (AUTO) 1.6 10^3/uL (1.0-4.0); LYMPHOCYTES % (AUTO) 31 % (12-44); MEAN CORPUSCULAR HEMOGLOBIN 29 pg (25-34); MEAN CORPUSCULAR HGB CONC 32 g/dL (32-36); MEAN CORPUSCULAR VOLUME 93 fL (80-99); MEAN PLATELET VOLUME 10.4 fL (9.0-12.2); MONOCYTES # (AUTO) 0.5 10^3/uL (0.0-1.0); MONOCYTES % (AUTO) 10 % (0-12); NEUTROPHILS # (AUTO) 2.7 10^3/uL (1.8-7.8); NEUTROPHILS % (AUTO) 53 % (42-75); PLATELET COUNT 211 10^3/uL (130-400); WHITE BLOOD COUNT 5.1 10^3/uL (4.3-11.0)
[2020-05-16 06:00] VITALS: BP 157/65
[2020-05-16 06:21] LABS: ALBUMIN 3.6 GM/DL (3.2-4.5)
[2020-05-16] MEDS: inSUlin ASPART (NovoLOG) 1 UNIT/0.01 ML (CHARGE PER UNIT) SC SCH ×4 (06:21→20:58)
[2020-05-16 06:22] LABS: CHLORIDE 102 MMOL/L (98-107); POTASSIUM 3.8 MMOL/L (3.6-5.0); SODIUM 136 MMOL/L (135-145)
[2020-05-16 06:23] LABS: CALCIUM 9.2 MG/DL (8.5-10.1)
[2020-05-16 06:24] LABS: GLUCOSE 124 MG/DL (70-105); TOTAL PROTEIN 6.8 GM/DL (6.4-8.2)
[2020-05-16 06:25] LABS: CARBON DIOXIDE 20 MMOL/L (21-32)
[2020-05-16 06:26] LABS: BILIRUBIN,TOTAL 0.4 MG/DL (0.1-1.0)
[2020-05-16] MEDS: BETHANECHOL 10 MG (URECHOLINE) TAB PO SCH ×4 (06:26→21:08)
[2020-05-16 06:27] LABS: ALKALINE PHOSPHATASE 97 U/L (40-136)
[2020-05-16 06:28] LABS: CREATININE SERUM 0.57 MG/DL (0.60-1.30); GFR ESTIMATED > 60
[2020-05-16 06:29] LABS: BUN/CREATININE RATIO 14
[2020-05-16 06:31] LABS: ALANINE AMINOTRANSFERASE 23 U/L (0-55)
--- NOTE | 2020-05-16 08:50 | Cardiology Progress Note ---
Subjective Date Seen by Provider: May 16, 2020 Time Seen by Provider: 08:05 Subjective/Events-last exam Patient is in bed, complains of fatigue. Denies any chest pain. Objective-Cardiology Exam Last Set of Vital Signs Vital Signs 05/14/20 05/16/20 05/16/20 07:57 06:00 09:00 Temp 36.7 Pulse 86 Resp 15 B/P (MAP) 157/65 (95) Pulse Ox 97 O2 Delivery Room Air O2 Flow Rate 2.00 Capillary Refill : Less Than 3 Seconds I&O Intake and Output 05/16/20 00:00 Intake Total 950 ml Output Total 675 ml Balance 275 ml Intake Oral 950 ml Output Urine Total 675 ml # Bowel Movements 1 General: Alert, Oriented X3, Cooperative HEENT: Atraumatic, PERRLA Neck: Supple, No JVD, No Thyromegaly Lungs: Clear to Auscultation, Normal Air Movement Heart: Regular Rate, Normal S1, Normal S2, No Murmurs Abdomen: Normal Bowel Sounds, Soft, No Tenderness, No Hepatosplenomegaly, No Masses Extremities: No Clubbing, No Cyanosis, No Edema, Normal Pulses, No Tenderness/Swelling Skin: No Rashes, No Breakdown, No Significant Lesion Neuro: Normal Gait, Normal Speech, Strength at 5/5 X4 Ext, Normal Tone, Sensation Intact Psych/Mental Status: Mental Status NL, Mood NL Results Lab Laboratory Tests 05/16/20 05:31 A/P-Cardiology Admission Diagnosis CVA Coronary artery disease Hypertension Hyperlipidemia Assessment/Plan Status post CVA with residual right hemiparesis, receiving PT OT, on Plavix and ASA. Coronary artery disease status post CABG 3. Continue to monitor at this time. Hypertension, increase amlodipine to 10 mg daily Hyperlipidemia, monitor lipids Questionable peripheral arterial disease with ischemic event after her bypass has improved after conservative management, continue on Plavix Diabetes mellitus, followed and managed by primary care physician Debility, receiving physical therapy Patient was seen and evaluated with Meenakshi, examination performed, management plan was discussed, agree with the current scribed note, I made few changes to the note using Italic font Poorly controlled blood pressure, I will increase amlodipine to 10 mg daily Continue to monitor blood pressure Clinical Quality Measures DVT/VTE Risk/Contraindication: Risk Factor Score Per Nursin RFS Level Per Nursing on Admit: 4+=Very High MEENAKSHI [place] May 16, 2020 8:50 am LOU KASPER MD May 16, 2020 11:18 am
--- NOTE | 2020-05-16 09:06 | PM&R Progress Note ---
Subjective HPI/CC On Admission Date Seen by Provider: May 16, 2020 Time Seen by Provider: 09:00 Subjective/Events-last exam 05/16/20: Dr. Houston will discontinue the catheter and evaluate voiding trial today Flomax and Urecholine maintained Bowels are moving Very difficult to recover from catastrophic stroke 05/15/20: Patient participating with therapy No pain reported Dr Houston consulted for james catheter 05/14/20: Patient denies pain Working well with structured therapies James cath still in place will need to DC soon Working on BM regimen Patient doing well Settling in well No pain reported Working with PT OT and ST Eating a bit more without aspiration No falls Checked meds and labs Conferred with RN Reviewed therapy notes Review of Systems General: Fatigue, Malaise Genitourinary: Retention Neurological: Weakness, Incoordination, Confusion Objective Exam Vital Signs Vital Signs Date Time Temp Pulse Resp B/P (MAP) Pulse Ox O2 Delivery O2 Flow Rate FiO2 05/16/20 20:20 Room Air 05/16/20 18:39 97 05/16/20 18:00 37.0 84 20 151/72 (98) 05/14/20 07:57 2.00 Capillary Refill : Less Than 3 Seconds General Appearance: No Apparent Distress, Anxious, Chronically ill, Thin HEENT: PERRL/EOMI, Normal ENT Inspection, Pharynx Normal Neck: Full Range of Motion, Normal Inspection, Non Tender, Supple, Carotid Bruit Respiratory: Chest Non Tender, Lungs Clear, No Accessory Muscle Use, No Respiratory Distress, Decreased Breath Sounds Cardiovascular: Regular Rate, Rhythm, No Edema, No Gallop, No JVD, No Murmur, Normal Peripheral Pulses Gastrointestinal: Normal Bowel Sounds, No Organomegaly, No Pulsatile Mass, Non Tender, Soft Back: Normal Inspection, No CVA Tenderness, No Vertebral Tenderness Extremity: Normal Capillary Refill, Normal Inspection, Normal Range of Motion (except right sided weakness), Non Tender, No Calf Tenderness, No Pedal Edema Neurologic/Psychiatric: Alert, No Motor/Sensory Deficits, Normal Mood/Affect, Abnormal piping engineer II-XII, Aphasia, Facial Droop, Motor Weakness (right sided flaccidity) Skin: Normal Color, Warm/Dry Lymphatic: No Adenopathy Results/Procedures Lab Laboratory Tests 05/16/20 05:31 Patient resulted labs reviewed. FIM Transfers Therapy Code Descriptions/Definitions Functional [place] Measure: 0=Not Assessed/NA 4=Minimal Assistance 1=Total Assistance 5=Supervision or Setup 2=Maximal Assistance 6=Modified [place] 3=Moderate Assistance 7=Complete IndependenceSCALE: Activities may be completed with or without assistive devices. 8-Hjirzziqbh-scavxhs completes the activity by him/herself with no assistance from a helper. 5-Set-up or Clean-up Assistance-helper sets up or cleans up; patient completes activity. [place] assists only prior to or following the activity. 4-Supervision or Touching Assistance-helper provides verbal cues and/or touching/steadying and/or contact guard assistance as patient completes activity. Assistance may be provided throughout the activity or intermittently. 3-Partial/Moderate Assistance-helper does LESS THAN HALF the effort. [place] lifts, holds or supports trunk or limbs, but provides less than half the effort. 2-Substantial/Maximal Assistance-helper does MORE THAN HALF the effort. [place] lifts or holds trunk or limbs and provides more than half the effort. 7-Sqmslckgr-rcbdqk does ALL the effort. Patient does none of the effort to complete the activity. Or, the assistance of 2 or more helpers is required for the patient to complete the activity. If activity was not attempted, code reason: 7-Patient Refused. 9-Not Applicable-not attempted and the patient did not perform the activity before the current illness, exacerbation or injury. 10-Not Attempted due to Environmental Limitations-(lack of equipment, weather restraints, etc.). 88-Not Attempted due to Medical Conditions or Safety Concerns. Roll Left to Right (QC): 3 Sit to Lying (QC): 3 Sit to Stand (QC): 3 Chair/Tny-rw-Ojfzg Xfer(QC): 3 Car Transfer (QC): 3 Gait Training Does the Patient Walk?: Yes Walk 10 feet (QC): 88 Walk 50 ft with 2 Turns(QC): 88 Walk 150 ft (QC): 88 Walking 10ft/uneven surface-QC: 88 Gait Assistive Device: Parallel Bars Wheelchair Training Does the Pt Use a Wheelchair?: Yes Distance: 150'x3 Wheel 50 ft with 2 turns (QC): 2 Wheel 150 ft (QC): 2 Type of Wheelchair: Manual Stair Training 1 Step (curb) (QC): 88 4 Steps (QC): 88 12 Steps (QC): 88 Balance Picking up an Object (QC): 88 ADL-Treatment Eating (QC): 2 Oral Hygiene (QC): 3 Shower/Bathe Self (QC): 2 (Pt. is able to wash her chest and right arm. She requires assistance to wash all other parts. Pt. showers while seated on shower chair.) Upper Body Dressing (QC): 88 (Pt. verbalizes that she is tired. 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 Ensure adequate anticoagulation 2. PT, OT, and ELECTRIC SCREW DRIVER OPERATOR eval's and treat 3. Oxygen via NC- wean as tolerated 4. Resume Home medications 5. Fall precautions 6. Dietary consult 7. DVT prophylaxis 05/13/20: Patient participating well No pain reported Continue current meds Advance diet 05/14/20: James DC soon Continue home meds Therapies to continue protocol 05/15/20: Dr Houston appreciated Monitor BP Monitor labs 05/16/20: Bladder meds Appreciate Dr Houston PT OT ST (1) CVA (cerebral vascular accident) (2) Dysarthria (3) Dysphagia (4) PEG (percutaneous endoscopic gastrostomy) status (5) Expressive aphasia (6) Smoker (7) COPD (chronic obstructive pulmonary disease) (8) CAD (coronary artery disease) (9) Hx of CABG (10) James catheter in place (11) Retention of urine BECKI WAGNER DO May 16, 2020 09:06
[2020-05-16] MEDS: FAMOTIDINE 20 MG (PEPCID) TABLET PO SCH (09:37)
[2020-05-16] MEDS: amLODIPine 5 MG (NORVASC) TAB PO SCH (09:37)
[2020-05-16] MEDS: SENNA W/DOCUSATE (SENOKOT S) TABLET PO SCH ×2 (09:37→21:08)
[2020-05-16] MEDS: polyethylene glycoL POWDER 17 GM (MIRALAX) PACK PO SCH ×2 (09:37→20:12)
[2020-05-16] MEDS: CARVEDILOL 3.125 MG (COREG) TABLET PO SCH ×2 (09:37→21:08)
[2020-05-16] MEDS: DOCUSATE SODIUM 100 MG (COLACE) CAP PO SCH ×2 (09:37→21:08)
[2020-05-16] MEDS: ASPIRIN 81 MG CHEW (CHILDREN'S ASA) PO SCH (09:37)
[2020-05-16] MEDS: CLOPIDOGREL 75 MG (PLAVIX) TABLET PO SCH (09:37)
--- NOTE | 2020-05-16 10:18 | Progress Note - Urology ---
Progress Note-Urology Progress Notes/Assess & Plan Progress/Assessment & Plan TOV TODAY, EXPLAINED TO PATIENT. TOLERATES FLOMAX AND URECHOLINE Final Diagnosis URINE RETENTION TANIA MENDEZ MD May 16, 2020 10:18
--- NOTE | 2020-05-16 10:27 | Physical Therapy Daily Note ---
PT Daily Note-Current Subjective Pt laying Supine in bed upon arrival. Pt agrees to PT. Pain Location: No Pain Reported Mental Status Patient Orientation: Person, M[place] Attachments: Villanueva Catheter Dr Houston advises pt that this will be removed today to test ability to urinate on own. Transfers SCALE: Activities may be completed with or without assistive devices. 0-Wivojcqmrv-sruzpfh completes the activity by him/herself with no assistance from a helper. 5-Set-up or Clean-up Assistance-helper sets up or cleans up; patient completes activity. [place] assists only prior to or following the activity. 4-Supervision or Touching Assistance-helper provides verbal cues and/or touching/steadying and/or contact guard assistance as patient completes activity. Assistance may be provided throughout the activity or intermittently. 3-Partial/Moderate Assistance-helper does LESS THAN HALF the effort. [place] lifts, holds or supports trunk or limbs, but provides less than half the effort. 2-Substantial/Maximal Assistance-helper does MORE THAN HALF the effort. [place] lifts or holds trunk or limbs and provides more than half the effort. 5-Byuthjusb-ywqykt does ALL the effort. Patient does none of the effort to complete the activity. Or, the assistance of 2 or more helpers is required for the patient to complete the activity. If activity was not attempted, code reason: 7-Patient Refused. 9-Not Applicable-not attempted and the patient did not perform the activity before the current illness, exacerbation or injury. 10-Not Attempted due to Environmental Limitations-(lack of equipment, weather restraints, etc.). 88-Not Attempted due to Medical Conditions or Safety Concerns. Lying to Sitting/Side of Bed(Q: 3 Sit to Stand (QC): 4 Chair/Smf-zh-Zbulj Xfer(QC): 3 SPT from EOB to recliner at Mod A. Weight Bearing Right Lower Extremity: Right Full Weight Bearing Left Lower Extremity: Left Full Weight Bearing Exercises Supine Ex: Ankle pumps, Quad Set, Glut sets, Heel Slides, Hip abd/add Supine Reps: 15 Treatments Pt completes Supine EX with instruction/TC & VC for completion. Dr Ramos & Dr Houston see pt during tx. Pt transfers to EOB then to recliner via SPT with RENTAL SALES AGENT. Pt repositioned and resting at end of tx. All needs met, call light in hand. Assessment Current Status: Fair Progress Cognition and weakness limit tx at this time. PT Short Term Goals Short Term Goals Time Frame: May 19, 2020 Roll Left & Right: 4 Sit to lyin Lying to sitting on side of be: 3 Chair/qaa-gq-zhaok transfer: 3 Walk 10 feet: 3 Does pt use a wc or scooter: Yes Wheel 50ft w/2 turns: 3 Wheel 150 feet: 3 PT Care Home Goals Industrial Electrician Journeyman Goals PT Industrial Electrician Journeyman Goals Time Frame: Jun 02, 2020 Roll Left & Right (QC): 6 Sit to Lying (QC): 6 Lying-Sitting on Side/Bed(QC): 6 Sit to Stand (QC): 4 Chair/Yxn-mi-Jeypc Xfer(QC): 4 Toilet Transfer (QC): 4 Car Transfer (QC): 4 Does the Patient Walk: Yes Walk 10 feet (QC): 3 Walk 50ft with 2 Turns (QC): 3 Walk 150 ft (QC): 88 Walking 10ft on Uneven Surface: 3 1 Step (curb) (QC): 3 4 Steps (QC): 88 12 Steps (QC): 88 Picking up an Object (QC): 88 Does the Pt use WC or Scooter?: Yes Wheel 50 feet with 2 turns (QC: 6 Wheel 150 feet: 6 PT Plan Problem List Problem List: Activity Tolerance, Functional Strength, Safety, Balance, Gait, Transfer Treatment/Plan Treatment Plan: Continue Plan of Care Treatment Plan: Bed Mobility, Education, Functional Activity Robbin, Functional Strength, Group Therapy, Gait, Safety, Therapeutic Exercise, Transfers Treatment Duration: May 13, 2020 Frequency: At least 5 of 7 days/Wk (IRF) Estimated Hrs Per Day: 1.5 hours per day Patient and/or Family Agrees t: Yes Safety Risks/Education Patient Education: Transfer Techniques, Correct Positioning, Safety Issues Teaching Recipient: Patient Teaching Methods: Discussion Response to Teaching: Reinforcement Needed Time/GCodes Time In: 930 Time Out: 1015 Total Billed Treatment Time: 45 Total Billed Treatment 1, EX x2 (25m) & FA (20m) JONATHAN KESSLER RENTAL SALES AGENT May 16, 2020 10:26
[2020-05-16] MEDS: RT-BUDESONIDE NEBS 0.5 MG/2ML (PULMICORT) AMP IH SCH ×2 (11:29→18:37)
[2020-05-16] MEDS: RT-ALBUTEROL/IPRATROPIUM 3 ML (DUONEB) VIAL IH SCH ×2 (11:29→18:37)
--- NOTE | 2020-05-16 11:43 | Speech Therapy Daily Note ---
Speech Daily Progress Note Subjective Date Seen by Provider: May 16, 2020 Time Seen by Provider: 00:30 Patient was resting in her bed. Patient was alert and participated with BDE and speech therapy. Objective Patient completed simple speech therapy exercises including answering y/n and simple questions related to her person and environment at 80% with minimal cues. The patient's speech is improving, however she does interject jargon with her normal speech pattern. Patient completed BDE with safe intake of thin liquids and regular texture foods without difficulty. Assessment Assessment Current Status: Good Progress Treatment Plan Continue Plan of Care Speech Short Term Goals Short Term Goals Short Term Goals 1) The patient will complete cognitive tasks related to memory, safety awareness and problem solving at 80% with minimal cues. 2) The patient will complete speech tasks to improve intelligibility at 80% with minimal cues. 3) The patient will complete confrontational naming tasks at 90% with minimal cues. 4) The patient will complete OME for improved oral status for safe oral intake at 80% or greater with minimal cues. Speech Usp Goals Sheet Metal Work Furnace Installer Goals Patient will improve communication abilities and safe oral intake in order to return to prior level. Speech-Plan Patient/Family Goals Patient/Family Goals: Patient's discharge plans are unknown at this time. Treatment Plan Speech Therapy Treatment Plan: Continue Plan of Care Treatment Duration: May 25, 2020 Frequency: 4 times per week (Patient will receive ST 4-5x per week) Estimated Hrs Per Day: .5 hour per day Rehab Potential: Fair Barriers to Learning: Patient's recent CVA and age Pt/Family Agrees to Plan: Yes Safety Risks/Education Teaching Recipient: Patient Teaching Methods: Demonstration, Discussion Response to Teaching: Verbalize Understanding, Return Demonstration Education Topics Provided: Safety of oral intake strategies Time Speech Therapy Time In: 09:00 Speech Therapy Time Out: 09:30 Total Billed Time: 30 Billed Treatment Time 1, DYSEVS, DYST, SLTS No SHERYL TAYLOR May 16, 2020 11:43
--- NOTE | 2020-05-16 13:23 | Physical Therapy Daily Note ---
PT Daily Note-Current Subjective Pt sitting in recliner with feet up upon arrival. Pt asking to return to bed upon arrival. Pain Location: No Pain Reported Mental Status Patient Orientation: Person, Mumbles Transfers SCALE: Activities may be completed with or without assistive devices. 4-Wswposdlrs-pzlfpxi completes the activity by him/herself with no assistance from a helper. 5-Set-up or Clean-up Assistance-helper sets up or cleans up; patient completes activity. [place] assists only prior to or following the activity. 4-Supervision or Touching Assistance-helper provides verbal cues and/or touching/steadying and/or contact guard assistance as patient completes activity. Assistance may be provided throughout the activity or intermittently. 3-Partial/Moderate Assistance-helper does LESS THAN HALF the effort. [place] lifts, holds or supports trunk or limbs, but provides less than half the effort. 2-Substantial/Maximal Assistance-helper does MORE THAN HALF the effort. [place] lifts or holds trunk or limbs and provides more than half the effort. 3-Oambcvkto-empytg does ALL the effort. Patient does none of the effort to complete the activity. Or, the assistance of 2 or more helpers is required for the patient to complete the activity. If activity was not attempted, code reason: 7-Patient Refused. 9-Not Applicable-not attempted and the patient did not perform the activity before the current illness, exacerbation or injury. 10-Not Attempted due to Environmental Limitations-(lack of equipment, weather restraints, etc.). 88-Not Attempted due to Medical Conditions or Safety Concerns. Sit to Lying (QC): 3 Sit to Stand (QC): 3 Chair/Ewo-go-Pqnak Xfer(QC): 3 Weight Bearing Right Lower Extremity: Right Full Weight Bearing Left Lower Extremity: Left Full Weight Bearing Treatments Pt aksing to return to bed upon entering room. BIOSECURITY OFFICER assists with TF to EOB as well as to Supine. Pt is repositioned to comfort. All needs met, call light in hand. Assessment Current Status: Fair Progress Cognition and weakness continue to limit tx. PT Short Term Goals Short Term Goals Time Frame: May 19, 2020 Roll Left & Right: 4 Sit to lyin Lying to sitting on side of be: 3 Chair/nva-tz-ankjg transfer: 3 Walk 10 feet: 3 Does pt use a wc or scooter: Yes Wheel 50ft w/2 turns: 3 Wheel 150 feet: 3 PT Intermediate Goals Intermediate Goals PT Patient Accounting Representative Goals Time Frame: Jun 02, 2020 Roll Left & Right (QC): 6 Sit to Lying (QC): 6 Lying-Sitting on Side/Bed(QC): 6 Sit to Stand (QC): 4 Chair/Kyr-of-Yhfyg Xfer(QC): 4 Toilet Transfer (QC): 4 Car Transfer (QC): 4 Does the Patient Walk: Yes Walk 10 feet (QC): 3 Walk 50ft with 2 Turns (QC): 3 Walk 150 ft (QC): 88 Walking 10ft on Uneven Surface: 3 1 Step (curb) (QC): 3 4 Steps (QC): 88 12 Steps (QC): 88 Picking up an Object (QC): 88 Does the Pt use WC or Scooter?: Yes Wheel 50 feet with 2 turns (QC: 6 Wheel 150 feet: 6 PT Plan Problem List Problem List: Activity Tolerance, Functional Strength, Safety, Balance, Transfer Treatment/Plan Treatment Plan: Continue Plan of Care Treatment Plan: Bed Mobility, Education, Functional Activity Robbin, Functional Strength, Group Therapy, Gait, Safety, Therapeutic Exercise, Transfers Treatment Duration: May 13, 2020 Frequency: At least 5 of 7 days/Wk (IRF) Estimated Hrs Per Day: 1.5 hours per day Patient and/or Family Agrees t: Yes Safety Risks/Education Patient Education: Transfer Techniques, Correct Positioning, Safety Issues Teaching Recipient: Patient Teaching Methods: Discussion Response to Teaching: Reinforcement Needed Time/GCodes Time In: 1300 Time Out: 1330 Total Billed Treatment Time: 30 Total Billed Treatment 1, FA x2 (30m) JONATHAN KESSLER BIOSECURITY OFFICER May 16, 2020 13:23
--- NOTE | 2020-05-16 15:08 | Occupational Ther Daily Note ---
OT Current Status-Daily Note Subjective No pain reported. Appearance Pt. up in recliner when OT entered room. Agrees to work with OT. Mental Status/Objective Patient Orientation: Person ADL-Treatment Therapy Code Descriptions/Definitions Functional [place] Measure: 0=Not Assessed/NA 4=Minimal Assistance 1=Total Assistance 5=Supervision or Setup 2=Maximal Assistance 6=Modified [place] 3=Moderate Assistance 7=Complete IndependenceSCALE: Activities may be completed with or without assistive devices. 2-Hzupcplios-mmtaarn completes the activity by him/herself with no assistance from a helper. 5-Set-up or Clean-up Assistance-helper sets up or cleans up; patient completes activity. [place] assists only prior to or following the activity. 4-Supervision or Touching Assistance-helper provides verbal cues and/or touching/steadying and/or contact guard assistance as patient completes activity. Assistance may be provided throughout the activity or intermittently. 3-Partial/Moderate Assistance-helper does LESS THAN HALF the effort. [place] lifts, holds or supports trunk or limbs, but provides less than half the effort. 2-Substantial/Maximal Assistance-helper does MORE THAN HALF the effort. [place] lifts or holds trunk or limbs and provides more than half the effort. 5-Bwtbuuaqg-gssosv does ALL the effort. Patient does none of the effort to complete the activity. Or, the assistance of 2 or more helpers is required for the patient to complete the activity. If activity was not attempted, code reason: 7-Patient Refused. 9-Not Applicable-not attempted and the patient did not perform the activity before the current illness, exacerbation or injury. 10-Not Attempted due to Environmental Limitations-(lack of equipment, weather restraints, etc.). 88-Not Attempted due to Medical Conditions or Safety Concerns. Oral Hygiene (QC): 3 (Min assist to brush teeth. Pt. able to bring to mouth with no cues, but then requires cues to swish and spit.) Shower/Bathe Self (QC): 1 (Pt. requires dependent assistance overall to cleanse self. She has difficulty following cues and sequencing steps this date. She is handed a washcloth, but is unable to sequence how to cleanse her arm or chest. OT does this for her, as well as all other parts. One person assists her with standing, while another assists with lopez care.) Upper Body Dressing (QC): 2 (Pt. is able to don over head, but requires cues and assistance to don each sleeve and then to pull down over torso.) Lower Body Dressing (QC): 1 On/Off Footwear: 1 Other Treatment Pt. tearful this date. Having more difficulty with speech. States, "good, good" throughout conversation and is having increased difficulty attending or following cues. BP is 135/79, and sats are 98%. Nursing aware. Pt. made comfortable in chair. All needs met. Education OT Patient Education: Correct positioning, Modified ADL techniques, Progress toward Goal/Update tx plan, Purpose of tx/functional activities, Reviewed precautions, Rehab process, Transfer techniques Teaching Recipient: Patient Teaching Methods: Demonstration, Discussion Response to Teaching: Verbalize Understanding, Return Demonstration OT Short Term Goals Short Term Goals Time Frame: May 26, 2020 Eatin Oral hygiene: 3 Toileting hygiene: 3 Shower/bathe self: 3 Upper body dressin Lower body dressin Putting on/taking off footwear: 3 OT Remote Ruby On Rails Developer Goals Shelter Goals Time Frame: Jun 09, 2020 Eating (QC): 4 Oral Hygiene (QC): 4 Toileting Hygiene (QC): 3 Shower/Bathe Self (QC): 3 Upper Body Dressing (QC): 5 Lower Body Dressing (QC): 4 On/Off Footwear (QC): 4 Additional Goals: 1-Demonstrate ADL Tasks, 2-Verbalize Understanding, 3- ImproveStrength/Robbin 1=Demonstrate adherence to instructed precautions during ADL tasks. 2=Patient will verbalize/demonstrate understanding of assistive devices/modifications for ADL. 3=Patient will improve strength/tolerance for activity to enable patient to perform ADL's. OT Education/Plan Problem List/Assessment Assessment: Decreased Activ Tolerance, Decreased Safety Aware (Chair alarm set.), Decreased UE Strength, Dependent Transfers, Impaired Bed Mobility, Impaired Cognition, Impaired Funct Balance, Impaired I ADL's, Impaired Self-Care Skills, Restricted Funct UE ROM Discharge Recommendations Plan/Recommendations: Continue POC Therapy Discharge Recommendati: Post Acute OT Treatment Plan/Plan of Care Treatment,Training & Education: Yes Patient would benefit from OT for education, treatment and training to promote independence in ADL's, mobility, safety and/or upper extremity function for ADL's. Plan of Care: ADL Retraining, Functional Mobility, Group Exercise/Act as Ind, UE Funct Exercise/Act Treatment Duration: Jun 09, 2020 Frequency: At least 5 of 7 days/Wk (IRF) Estimated Hrs Per Day: 1.5 hours per day Agreement: Yes Rehab Potential: Fair Time/GCodes Start Time: 10:15 Stop Time: 11:00 Total Time Billed (hr/min): 45 Billed Treatment Time 1, ADL x 3 RALPH LUO OT May 16, 2020 15:07
--- NOTE | 2020-05-16 15:26 | Occupational Ther Daily Note ---
OT Current Status-Daily Note Subjective Pt. becomes tearful during treatment. Appearance Pt. in bed. Agrees to work with OT. ADL-Treatment Therapy Code Descriptions/Definitions Functional [place] Measure: 0=Not Assessed/NA 4=Minimal Assistance 1=Total Assistance 5=Supervision or Setup 2=Maximal Assistance 6=Modified [place] 3=Moderate Assistance 7=Complete IndependenceSCALE: Activities may be completed with or without assistive devices. 6-Wquhgrtiwt-safuuzz completes the activity by him/herself with no assistance from a helper. 5-Set-up or Clean-up Assistance-helper sets up or cleans up; patient completes activity. [place] assists only prior to or following the activity. 4-Supervision or Touching Assistance-helper provides verbal cues and/or touching/steadying and/or contact guard assistance as patient completes activity. Assistance may be provided throughout the activity or intermittently. 3-Partial/Moderate Assistance-helper does LESS THAN HALF the effort. [place] lifts, holds or supports trunk or limbs, but provides less than half the effort. 2-Substantial/Maximal Assistance-helper does MORE THAN HALF the effort. [place] lifts or holds trunk or limbs and provides more than half the effort. 8-Gehdljpep-kyxqcq does ALL the effort. Patient does none of the effort to complete the activity. Or, the assistance of 2 or more helpers is required for the patient to complete the activity. If activity was not attempted, code reason: 7-Patient Refused. 9-Not Applicable-not attempted and the patient did not perform the activity before the current illness, exacerbation or injury. 10-Not Attempted due to Environmental Limitations-(lack of equipment, weather restraints, etc.). 88-Not Attempted due to Medical Conditions or Safety Concerns. Other Treatment Pt. in bed and OT wakes her up. Pt. groggy but agrees to participate. OT attempts to engage pt. in cognitive task such as naming the category that other things are a part of, or that one thing is a part of. Due to aphasia, pt. is unable to state what she means and becomes frustrated. She is tearful. OT attempts to encourage. Pt. participates in right UE AROM exercises to best of her ability for wrist extension, elbow flexion, finger flexion. She is limited in her movements, but is able to rotate wrist. She has what appears to be neglect of her right side, and is educated in being aware of right UE. She is encouraged to look at her hand, and to attempt to grasp things from her tray wi th it. She verbalizes understanding. OT gives pt. pen, and she requires cues to take if from OT. She has in her left hand, and attempts to write her name on paper as OT has encouraged her to do. She is unable to do this, and becomes tearful again. Pt. continues to be encouraged. All needs are met at bed level. Education OT Patient Education: Correct positioning, Modified ADL techniques, Progress toward Goal/Update tx plan, Purpose of tx/functional activities, Reviewed precautions, Rehab process, Transfer techniques Teaching Recipient: Patient Teaching Methods: Demonstration, Discussion Response to Teaching: Verbalize Understanding, Return Demonstration OT Short Term Goals Short Term Goals Time Frame: May 26, 2020 Eatin Oral hygiene: 3 Toileting hygiene: 3 Shower/bathe self: 3 Upper body dressin Lower body dressin Putting on/taking off footwear: 3 OT Slitter Helper Goals Usp Goals Time Frame: Jun 09, 2020 Eating (QC): 4 Oral Hygiene (QC): 4 Toileting Hygiene (QC): 3 Shower/Bathe Self (QC): 3 Upper Body Dressing (QC): 5 Lower Body Dressing (QC): 4 On/Off Footwear (QC): 4 Additional Goals: 1-Demonstrate ADL Tasks, 2-Verbalize Understanding, 3- ImproveStrength/Robbin 1=Demonstrate adherence to instructed precautions during ADL tasks. 2=Patient will verbalize/demonstrate understanding of assistive devices/modifications for ADL. 3=Patient will improve strength/tolerance for activity to enable patient to perform ADL's. OT Education/Plan Problem List/Assessment Assessment: Decreased Activ Tolerance, Decreased Safety Aware, Decreased UE Strength, Dependent Transfers, Impaired Bed Mobility, Impaired Cognition, Impaired Coordination, Impaired Funct Balance, Impaired I ADL's, Impaired Self- Care Skills, Restricted Funct UE ROM, Visual-Perceptual Deficit Discharge Recommendations Plan/Recommendations: Continue POC Therapy Discharge Recommendati: 24 Hour Supervision, Post Acute OT Treatment Plan/Plan of Care Treatment,Training & Education: Yes Patient would benefit from OT for education, treatment and training to promote independence in ADL's, mobility, safety and/or upper extremity function for ADL's. Plan of Care: ADL Retraining, Functional Mobility, Group Exercise/Act as Ind, UE Funct Exercise/Act Treatment Duration: Jun 09, 2020 Frequency: At least 5 of 7 days/Wk (IRF) Estimated Hrs Per Day: 1.5 hours per day Agreement: Yes Rehab Potential: Fair Time/GCodes Start Time: 13:35 Stop Time: 14:05 Total Time Billed (hr/min): 30 Billed Treatment Time 1, FA x 15minutes, Ex x 15minutes RALPH LUO OT May 16, 2020 15:26
[2020-05-16] MEDS: TAMSULOSIN 0.4 MG (FLOMAX) CAP PO SCH (17:03)
[2020-05-16 18:00] VITALS: BP 151/72
[2020-05-16] MEDS: MELATONIN 3 MG TABLET PO PRN (22:12)
[2020-05-16] MEDS: ALPRAZolam 0.25 MG (XANAX) TAB PO PRN (22:12)
[2020-05-17] MEDS: inSUlin ASPART (NovoLOG) 1 UNIT/0.01 ML (CHARGE PER UNIT) SC SCH ×4 (05:41→20:44)
--- NOTE | 2020-05-17 05:44 | PM&R Progress Note ---
Subjective HPI/CC On Admission Date Seen by Provider: May 17, 2020 Time Seen by Provider: 09:00 Subjective/Events-last exam 05/17/20: Xanax given last night Bowels moved yesterday Refusing to eat supper or breakfast today Agitated a bit today Post-void residual had 238 Hadnt voided since discontinued the cath yesterday 05/16/20: Dr. Houston will discontinue the catheter and evaluate voiding trial today Flomax and Urecholine maintained Bowels are moving Very difficult to recover from catastrophic stroke 05/15/20: Patient participating with therapy No pain reported Dr Houston consulted for james catheter 05/14/20: Patient denies pain Working well with structured therapies James cath still in place will need to DC soon Working on BM regimen Patient doing well Settling in well No pain reported Working with PT OT and ST Eating a bit more without aspiration No falls Checked meds and labs Conferred with RN Reviewed therapy notes Review of Systems General: Fatigue, Malaise Neurological: Weakness, Incoordination, Confusion Objective Exam Vital Signs Vital Signs Date Time Temp Pulse Resp B/P (MAP) Pulse Ox O2 Delivery O2 Flow Rate FiO2 05/17/20 20:35 Room Air 05/17/20 16:27 37.3 89 20 131/62 (85) 98 05/14/20 07:57 2.00 Capillary Refill : Less Than 3 Seconds General Appearance: No Apparent Distress, Anxious, Chronically ill, Thin HEENT: PERRL/EOMI, Normal ENT Inspection, Pharynx Normal Neck: Full Range of Motion, Normal Inspection, Non Tender, Supple, Carotid Bruit Respiratory: Chest Non Tender, Lungs Clear, No Accessory Muscle Use, No Respiratory Distress, Decreased Breath Sounds Cardiovascular: Regular Rate, Rhythm, No Edema, No Gallop, No JVD, No Murmur, Normal Peripheral Pulses Gastrointestinal: Normal Bowel Sounds, No Organomegaly, No Pulsatile Mass, Non Tender, Soft Back: Normal Inspection, No CVA Tenderness, No Vertebral Tenderness Extremity: Normal Capillary Refill, Normal Inspection, Normal Range of Motion (except right sided weakness), Non Tender, No Calf Tenderness, No Pedal Edema Neurologic/Psychiatric: Alert, No Motor/Sensory Deficits, Normal Mood/Affect, Abnormal cutting machine tender helper II-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 FIM Transfers Therapy Code Descriptions/Definitions Functional [place] Measure: 0=Not Assessed/NA 4=Minimal Assistance 1=Total Assistance 5=Supervision or Setup 2=Maximal Assistance 6=Modified [place] 3=Moderate Assistance 7=Complete IndependenceSCALE: Activities may be completed with or without assistive devices. 6-Djcytuuwlg-oarxyrh completes the activity by him/herself with no assistance from a helper. 5-Set-up or Clean-up Assistance-helper sets up or cleans up; patient completes activity. [place] assists only prior to or following the activity. 4-Supervision or Touching Assistance-helper provides verbal cues and/or touching/steadying and/or contact guard assistance as patient completes activity. Assistance may be provided throughout the activity or intermittently. 3-Partial/Moderate Assistance-helper does LESS THAN HALF the effort. [place] lifts, holds or supports trunk or limbs, but provides less than half the effort. 2-Substantial/Maximal Assistance-helper does MORE THAN HALF the effort. [place] lifts or holds trunk or limbs and provides more than half the effort. 1-Tlpkqblgd-gnaxkj does ALL the effort. Patient does none of the effort to complete the activity. Or, the assistance of 2 or more helpers is required for the patient to complete the activity. If activity was not attempted, code reason: 7-Patient Refused. 9-Not Applicable-not attempted and the patient did not perform the activity before the current illness, exacerbation or injury. 10-Not Attempted due to Environmental Limitations-(lack of equipment, weather restraints, etc.). 88-Not Attempted due to Medical Conditions or Safety Concerns. Roll Left to Right (QC): 3 Sit to Lying (QC): 3 Sit to Stand (QC): 3 Chair/Pwu-or-Jnecs Xfer(QC): 3 Car Transfer (QC): 3 Gait Training Does the Patient Walk?: Yes Walk 10 feet (QC): 88 Walk 50 ft with 2 Turns(QC): 88 Walk 150 ft (QC): 88 Walking 10ft/uneven surface-QC: 88 Gait Assistive Device: Parallel Bars Wheelchair Training Does the Pt Use a Wheelchair?: Yes Distance: 150'x3 Wheel 50 ft with 2 turns (QC): 2 Wheel 150 ft (QC): 2 Type of Wheelchair: Manual Stair Training 1 Step (curb) (QC): 88 4 Steps (QC): 88 12 Steps (QC): 88 Balance Picking up an Object (QC): 88 ADL-Treatment Eating (QC): 2 Oral Hygiene (QC): 3 (Min assist to brush teeth. Pt. able to bring to mouth with no cues, but then requires cues to swish and spit.) Shower/Bathe Self (QC): 1 (Pt. requires dependent assistance overall to cleanse self. She has difficulty following cues and sequencing steps this date. She is handed a washcloth, but is unable to sequence how to cleanse her arm or chest. OT does this for her, as well as all other parts. One person assists her with standing, while another assists with lopez care.) Upper Body Dressing (QC): 2 (Pt. 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 Ensure adequate anticoagulation 2. PT, OT, and ORACLE BUSINESS ANALYST eval's and treat 3. Oxygen via NC- wean as tolerated 4. Resume Home medications 5. Fall precautions 6. Dietary consult 7. DVT prophylaxis 05/13/20: Patient participating well No pain reported Continue current meds Advance diet 05/14/20: James DC soon Continue home meds Therapies to continue protocol 05/15/20: Dr Houston appreciated Monitor BP Monitor labs 05/16/20: Bladder meds Appreciate Dr Houston PT OT ST 05/17/20: Voiding trial Monitor closely Variable moods (1) CVA (cerebral vascular accident) (2) Dysarthria (3) Dysphagia (4) PEG (percutaneous endoscopic gastrostomy) status (5) Expressive aphasia (6) Smoker (7) COPD (chronic obstructive pulmonary disease) (8) CAD (coronary artery disease) (9) Hx of CABG (10) James catheter in place (11) Retention of urine BECKI WAGNER DO May 17, 2020 05:44
[2020-05-17 05:54] VITALS: BP 127/77
--- NOTE | 2020-05-17 06:08 | NUR ---
Patient had james removed yesterday evening around 1700. Patient bladder scanned last night at 2100 with an estimated 38 ml in bladder. Patient has not voided this shift. Aide attempted to bladder scan patient this morning and patient refused. RN went into the room with the aide and explained that we needed to bladder scan her. Patient said no you don't and was adamant that she didn't want to be scanned.
[2020-05-17] MEDS: RT-ALBUTEROL/IPRATROPIUM 3 ML (DUONEB) VIAL IH SCH (08:29)
[2020-05-17] MEDS: RT-BUDESONIDE NEBS 0.5 MG/2ML (PULMICORT) AMP IH SCH (08:29)
[2020-05-17 09:54] VITALS: BP 148/64
[2020-05-17] MEDS: ASPIRIN 81 MG CHEW (CHILDREN'S ASA) PO SCH (09:57)
[2020-05-17] MEDS: FAMOTIDINE 20 MG (PEPCID) TABLET PO SCH (09:57)
[2020-05-17] MEDS: CARVEDILOL 3.125 MG (COREG) TABLET PO SCH ×2 (09:57→20:43)
[2020-05-17] MEDS: SENNA W/DOCUSATE (SENOKOT S) TABLET PO SCH ×2 (09:57→20:43)
[2020-05-17] MEDS: DOCUSATE SODIUM 100 MG (COLACE) CAP PO SCH ×2 (09:58→20:43)
[2020-05-17] MEDS: CLOPIDOGREL 75 MG (PLAVIX) TABLET PO SCH (09:58)
[2020-05-17] MEDS: amLODIPine 5 MG (NORVASC) TAB PO SCH (09:58)
[2020-05-17] MEDS: BETHANECHOL 10 MG (URECHOLINE) TAB PO SCH ×3 (10:01→17:01)
[2020-05-17] MEDS: polyethylene glycoL POWDER 17 GM (MIRALAX) PACK PO SCH ×2 (10:02→20:44)
--- NOTE | 2020-05-17 11:20 | Speech Therapy Daily Note ---
Speech Daily Progress Note Subjective Date Seen by Provider: May 17, 2020 Time Seen by Provider: 00:30 Patient was resting in her bed when I entered her room. She was alert and participated well. Objective Patient completed "Fill in the blank" for general information sentences at 70% with moderate cues. Patient's speech continues to improve with relevant words/phrases interjected with jargon. Patient is utilizing safe intake of liquids with small sips given minimal cues. Assessment Assessment Current Status: Good Progress Treatment Plan Continue Plan of Care Speech Short Term Goals Short Term Goals Short Term Goals 1) The patient will complete cognitive tasks related to memory, safety awareness and problem solving at 80% with minimal cues. 2) The patient will complete speech tasks to improve intelligibility at 80% with minimal cues. 3) The patient will complete confrontational naming tasks at 90% with minimal cues. 4) The patient will complete OME for improved oral status for safe oral intake at 80% or greater with minimal cues. Speech Mcfp Goals Mcfp Goals Patient will improve communication abilities and safe oral intake in order to return to prior level. Speech-Plan Patient/Family Goals Patient/Family Goals: Patient's discharge plans are not known at this time. Rehab team mtg tomorrow will discuss her options. Treatment Plan Speech Therapy Treatment Plan: Continue Plan of Care Treatment Duration: May 25, 2020 Frequency: 4 times per week (Patient will receive ST 4-5x per week) Estimated Hrs Per Day: .5 hour per day Rehab Potential: Fair Barriers to Learning: Patient's recent CVA Pt/Family Agrees to Plan: Yes Safety Risks/Education Teaching Recipient: Patient Teaching Methods: Demonstration, Discussion Response to Teaching: Verbalize Understanding, Return Demonstration Education Topics Provided: Continued safety within her room and communication of wants/needs Continued safety of oral intake Time Speech Therapy Time In: 09:00 Speech Therapy Time Out: 09:30 Total Billed Time: 30 Billed Treatment Time 1, OMAR, SHERYL Huang May 17, 2020 11:20
--- NOTE | 2020-05-17 11:54 | Occupational Ther Daily Note ---
OT Current Status-Daily Note Subjective Pt. very groggy this morning. Has great difficulty with words, but does not indicate pain. Mental Status/Objective Patient Orientation: Person ADL-Treatment Therapy Code Descriptions/Definitions Functional [place] Measure: 0=Not Assessed/NA 4=Minimal Assistance 1=Total Assistance 5=Supervision or Setup 2=Maximal Assistance 6=Modified [place] 3=Moderate Assistance 7=Complete IndependenceSCALE: Activities may be completed with or without assistive devices. 5-Liotwvnjme-igtmaqc completes the activity by him/herself with no assistance f rom a helper. 5-Set-up or Clean-up Assistance-helper sets up or cleans up; patient completes activity. [place] assists only prior to or following the activity. 4-Supervision or Touching Assistance-helper provides verbal cues and/or touching/steadying and/or contact guard assistance as patient completes activity. Assistance may be provided throughout the activity or intermittently. 3-Partial/Moderate Assistance-helper does LESS THAN HALF the effort. [place] lifts, holds or supports trunk or limbs, but provides less than half the effort. 2-Substantial/Maximal Assistance-helper does MORE THAN HALF the effort. [place] lifts or holds trunk or limbs and provides more than half the effort. 4-Vgowqgcvj-mlfeiq does ALL the effort. Patient does none of the effort to complete the activity. Or, the assistance of 2 or more helpers is required for the patient to complete the activity. If activity was not attempted, code reason: 7-Patient Refused. 9-Not Applicable-not attempted and the patient did not perform the activity before the current illness, exacerbation or injury. 10-Not Attempted due to Environmental Limitations-(lack of equipment, weather restraints, etc.). 88-Not Attempted due to Medical Conditions or Safety Concerns. Oral Hygiene (QC): 3 (Min assist overall to brush teeth. Pt. is handed toothbrush with paste already on it. OT directs it to her mouth and she brushes. OT holds glass to her mouth so she can take drink to rinse. OT wipes off mouth.) Shower/Bathe Self (QC): 7 (OT asks pt. if she would like to shower. She states, "nah.") Upper Body Dressing (QC): 2 (Pt. attempts to doff her t-shirt but becomes very frustrated when she can't grasp it, or sequence how to do it. OT assists and then assists with donning shirt. Pt able to pull down over torso.) Lower Body Dressing (QC): 2 (Pt. requires max assist with donning brief and pants.) On/Off Footwear: 1 (Dependent with slipper socks.) Toileting Hygiene (QC): 1 (Pt. slightly incontinent of bowel. Pt. sits on BS with pillows for positioning, and is able to have more BM, but unable to urinate. Requires max assist for one person to stand with her and someone else to cleanse her and pull pants up.) Toilet Transfer (QC): 3 (Mod assist to transfer to BS with therapist in front of her.) Other Treatment Pt. very groggy this a.m. Kept repeating, "good, good" in aphasic pattern to answer any questions OT asked. Pt. unable to sequence at first or problem solve any activity. Nursing notified and took BP. BP slightly high but okay, (please see nursing notes.) OT transferred pt. to wheelchair with mod assist, and pt. was taken to sink to brush hair and teeth. She took the brush when it was handed to her and put it in her mouth. Required hand over hand assist to brush her hair. Pt. more alert at this time and was taken to therapy gym. Pt. unable to follow any cues to sequence any simple activity that OT gave her. She was unable to understand verbally what OT was telling her, or visually how OT was showing her. Pt. given small nuts and was asked to place them in a container. She doesn't initiate this with out max prompting, and then picks them up and starts to place in her mouth. She did this several time and was directed to the container. She was unable to color in a shape with her left hand on a piece of paper, and instead kept drawing on the other side. She was unable to place therapy pegs into holes when they were handed to her. Pt. taken back to room and transferred to reclining chair with chair alarm in place. All needs met. Education OT Patient Education: Correct positioning, Exercise program, Modified ADL techniques, Progress toward Goal/Update tx plan, Purpose of tx/functional activities, Reviewed precautions, Rehab process, Transfer techniques Teaching Recipient: Patient Teaching Methods: Demonstration, Discussion Response to Teaching: Unable to Return Demonstration, Unable to Comprehend, Reinforcement Needed OT Short Term Goals Short Term Goals Time Frame: May 26, 2020 Eatin Oral hygiene: 3 Toileting hygiene: 3 Shower/bathe self: 3 Upper body dressin Lower body dressin Putting on/taking off footwear: 3 OT Audio Visual Aide Goals Audio Visual Aide Goals Time Frame: Jun 09, 2020 Eating (QC): 4 Oral Hygiene (QC): 4 Toileting Hygiene (QC): 3 Shower/Bathe Self (QC): 3 Upper Body Dressing (QC): 5 Lower Body Dressing (QC): 4 On/Off Footwear (QC): 4 Additional Goals: 1-Demonstrate ADL Tasks, 2-Verbalize Understanding, 3- ImproveStrength/Robbin 1=Demonstrate adherence to instructed precautions during ADL tasks. 2=Patient will verbalize/demonstrate understanding of assistive devices/modifications for ADL. 3=Patient will improve strength/tolerance for activity to enable patient to perform ADL's. OT Education/Plan Problem List/Assessment Assessment: Decreased Activ Tolerance, Decreased Safety Aware, Decreased UE Strength, Dependent Transfers, Impaired Bed Mobility, Impaired Cognition, Impaired Coordination, Impaired Funct Balance, Impaired I ADL's, Impaired Self- Care Skills, Restricted Funct UE ROM, Visual-Perceptual Deficit Visual perceptual issues difficult to pinpoint due to severe global aphasia. Discharge Recommendations Plan/Recommendations: Continue POC Therapy Discharge Recommendati: 24 Hour Supervision, Post Acute OT Treatment Plan/Plan of Care Treatment,Training & Education: Yes Patient would benefit from OT for education, treatment and training to promote independence in ADL's, mobility, safety and/or upper extremity function for ADL's. Plan of Care: ADL Retraining, Functional Mobility, Group Exercise/Act as Ind, UE Funct Exercise/Act Treatment Duration: Jun 09, 2020 Frequency: At least 5 of 7 days/Wk (IRF) Estimated Hrs Per Day: 1.5 hours per day Agreement: Yes Rehab Potential: Fair Time/GCodes Start Time: 09:30 Stop Time: 10:45 Total Time Billed (hr/min): 75 Billed Treatment Time 1, ADL x 45minutes, FA x 30minutes RALPH LUO OT May 17, 2020 11:54
--- NOTE | 2020-05-17 12:00 | Progress Note - Urology ---
Progress Note-Urology Progress Notes/Assess & Plan Progress/Assessment & Plan FAILED TOV. REINSERT CISNEROS AND INCREASE URECHOLINE TO 25 AC AND HS. TOV SATURDAY Final Diagnosis URINE RETENTION TANIA MENDEZ MD May 17, 2020 11:59
--- NOTE | 2020-05-17 12:13 | Physical Therapy Daily Note ---
PT Daily Note-Current Subjective Pt. states repeatedly "OK baby" Pleasant and follows instructions 80% of time 100% with tactile cues. Pain Location: No Pain Reported Appearance dyspneic with activity but O2 sats >90% Mental Status Patient Orientation: Non-Verbal/Aphasic Transfers SCALE: Activities may be completed with or without assistive devices. 4-Xsfhrbfwri-pqumoxx completes the activity by him/herself with no assistance from a helper. 5-Set-up or Clean-up Assistance-helper sets up or cleans up; patient completes activity. [place] assists only prior to or following the activity. 4-Supervision or Touching Assistance-helper provides verbal cues and/or touching/steadying and/or contact guard assistance as patient completes activity. Assistance may be provided throughout the activity or intermittently. 3-Partial/Moderate Assistance-helper does LESS THAN HALF the effort. [place] lifts, holds or supports trunk or limbs, but provides less than half the effort. 2-Substantial/Maximal Assistance-helper does MORE THAN HALF the effort. [place] lifts or holds trunk or limbs and provides more than half the effort. 9-Zwexemneg-tkgqwh does ALL the effort. Patient does none of the effort to complete the activity. Or, the assistance of 2 or more helpers is required for the patient to complete the activity. If activity was not attempted, code reason: 7-Patient Refused. 9-Not Applicable-not attempted and the patient did not perform the activity before the current illness, exacerbation or injury. 10-Not Attempted due to Environmental Limitations-(lack of equipment, weather restraints, etc.). 88-Not Attempted due to Medical Conditions or Safety Concerns. Roll Left & Right (QC): 4 Sit to Lying (QC): 4 Lying to Sitting/Side of Bed(Q: 4 Sit to Stand (QC): 3 Chair/Tzc-cg-Nebgb Xfer(QC): 3 Toilet Transfer (QC): 3 Weight Bearing Right Lower Extremity: Right Full Weight Bearing Left Lower Extremity: Left Full Weight Bearing Gait Training Does the Patient Walk?: Yes Walk 10 feet (QC): 3 Gait Persons Needed: 2 Gait Assistive Device: Walker Platform initially gait trained in // bars, mod assist approx 5 ft x 2, then trialed FWW w platf. pt. needs assist to advance FWW and department of mathematics chair to advance RLE, wlaks slowly, fatigues quickly Exercises Supine Ex: Bridging, Ankle pumps, Rolling, Heel Slides, Short Arc Quads, Scooting, Straight leg raise, Hip abd/add Supine Reps: 15 Seated Therapy Exercises: Ankle pumps, Sit to stand, Long arc quads, Hip flexion, Hip abd/add Seated Reps: 15 NuStep Minutes: 5 NuStep Workload: 2 Assessment Current Status: Good Progress PT Short Term Goals Short Term Goals Time Frame: May 19, 2020 Roll Left & Right: 4 Sit to lyin Lying to sitting on side of be: 3 Chair/acn-gb-rmwrq transfer: 3 Walk 10 feet: 3 Does pt use a wc or scooter: Yes Wheel 50ft w/2 turns: 3 Wheel 150 feet: 3 PT Grain Broker And Market Operator Goals Grain Broker And Market Operator Goals PT Grain Broker And Market Operator Goals Time Frame: Jun 02, 2020 Roll Left & Right (QC): 6 Sit to Lying (QC): 6 Lying-Sitting on Side/Bed(QC): 6 Sit to Stand (QC): 4 Chair/Zng-gq-Dvarv Xfer(QC): 4 Toilet Transfer (QC): 4 Car Transfer (QC): 4 Does the Patient Walk: Yes Walk 10 feet (QC): 3 Walk 50ft with 2 Turns (QC): 3 Walk 150 ft (QC): 88 Walking 10ft on Uneven Surface: 3 1 Step (curb) (QC): 3 4 Steps (QC): 88 12 Steps (QC): 88 Picking up an Object (QC): 88 Does the Pt use WC or Scooter?: Yes Wheel 50 feet with 2 turns (QC: 6 Wheel 150 feet: 6 PT Plan Treatment/Plan Treatment Plan: Continue Plan of Care Treatment Plan: Bed Mobility, Education, Functional Activity [place], Functional Strength, Group Therapy, Gait, Safety, Therapeutic Exercise, Transfers Treatment Duration: May 13, 2020 Frequency: At least 5 of 7 days/Wk (IRF) Estimated Hrs Per Day: 1.5 hours per day Patient and/or Family Agrees t: Yes Safety Risks/Education Patient Education: Gait Training, Transfer Techniques, Correct Positioning, Disease Process, Safety Issues Teaching Recipient: Patient Teaching Methods: Demonstration, Discussion Response to Teaching: Verbalize Understanding, Return Demonstration, Reinforcement Needed Time/GCodes Time In: 1100 Time Out: 1215 Total Billed Treatment Time: 75 Total Billed Treatment 1,GT20m,FA25m,EX15m JANA OROSCO DIGITAL PRODUCTION ARTIST May 17, 2020 12:12
[2020-05-17 16:27] VITALS: BP 131/62
[2020-05-17] MEDS ORDERED: BETHANECHOL 25 MG (URECHOLINE) TAB PO NR (17:15)
[2020-05-17] MEDS: TAMSULOSIN 0.4 MG (FLOMAX) CAP PO SCH (17:16)
[2020-05-17] MEDS: ALPRAZolam 0.25 MG (XANAX) TAB PO PRN (20:43)
[2020-05-17] MEDS: BETHANECHOL 25 MG (URECHOLINE) TAB PO SCH (20:43)
[2020-05-18 05:51] VITALS: BP 143/63
[2020-05-18] MEDS: inSUlin ASPART (NovoLOG) 1 UNIT/0.01 ML (CHARGE PER UNIT) SC SCH ×4 (05:53→21:00)
[2020-05-18] MEDS: BETHANECHOL 25 MG (URECHOLINE) TAB PO SCH ×4 (06:14→21:41)
[2020-05-18] MEDS: FAMOTIDINE 20 MG (PEPCID) TABLET PO SCH (07:33)
[2020-05-18] MEDS: ASPIRIN 81 MG CHEW (CHILDREN'S ASA) PO SCH (07:34)
[2020-05-18] MEDS: SENNA W/DOCUSATE (SENOKOT S) TABLET PO SCH ×2 (07:34→21:40)
[2020-05-18] MEDS: DOCUSATE SODIUM 100 MG (COLACE) CAP PO SCH ×2 (07:34→21:40)
[2020-05-18] MEDS: amLODIPine 5 MG (NORVASC) TAB PO SCH (07:34)
[2020-05-18] MEDS: CLOPIDOGREL 75 MG (PLAVIX) TABLET PO SCH (07:35)
[2020-05-18] MEDS: CARVEDILOL 3.125 MG (COREG) TABLET PO SCH ×2 (07:35→21:41)
[2020-05-18] MEDS: polyethylene glycoL POWDER 17 GM (MIRALAX) PACK PO SCH ×2 (07:35→21:40)
[2020-05-18] MEDS: RT-ALBUTEROL/IPRATROPIUM 3 ML (DUONEB) VIAL IH SCH ×2 (08:33→20:54)
[2020-05-18] MEDS: RT-BUDESONIDE NEBS 0.5 MG/2ML (PULMICORT) AMP IH SCH ×2 (08:33→20:54)
--- NOTE | 2020-05-18 10:33 | Speech Therapy Daily Note ---
Speech Daily Progress Note Subjective Date Seen by Provider: May 18, 2020 Time Seen by Provider: 00:30 Patient was resting in her bed when I entered her room, however she alerted and participated well. Objective Patient completed OME with 80% given moderate cues to follow directions. Patient's repeated a series of words as directed with 75% accuracy. Patient utilizes safe oral intake strategies with sips/bites with minimal verbal and/or visual cues. Assessment Assessment Current Status: Good Progress Treatment Plan Continue Plan of Care Speech Short Term Goals Short Term Goals Short Term Goals 1) The patient will complete cognitive tasks related to memory, safety awareness and problem solving at 80% with minimal cues. 2) The patient will complete speech tasks to improve intelligibility at 80% with minimal cues. 3) The patient will complete confrontational naming tasks at 90% with minimal cues. 4) The patient will complete OME for improved oral status for safe oral intake at 80% or greater with minimal cues. Speech Lay Midwife Goals Mcc Goals Patient will improve communication abilities and safe oral intake in order to return to prior level. Speech-Plan Patient/Family Goals Patient/Family Goals: Patient's discharge plans are unknown at this time, although it is presumed she plans on returning home. Treatment Plan Speech Therapy Treatment Plan: Continue Plan of Care Treatment Duration: May 25, 2020 Frequency: 4 times per week (Patient will receive ST 4-5x per week) Estimated Hrs Per Day: .5 hour per day Rehab Potential: Fair Barriers to Learning: Recent CVA, age Pt/Family Agrees to Plan: Yes Safety Risks/Education Teaching Recipient: Patient Teaching Methods: Demonstration, Discussion Response to Teaching: Verbalize Understanding, Return Demonstration Education Topics Provided: Continued safety, safe oral intake Time Speech Therapy Time In: 09:00 Speech Therapy Time Out: 09:30 Total Billed Time: 30 Billed Treatment Time 1JEWEL SLTS No [place], BETHANIA ST May 18, 2020 10:33
--- NOTE | 2020-05-18 11:46 | PM&R Progress Note ---
Subjective HPI/CC On Admission Date Seen by Provider: May 18, 2020 Time Seen by Provider: 09:30 Subjective/Events-last exam 05/18/20: Re inserted the james since urinary retention continued Increasing oral fluids Urecholine was increased dose barron Bowels are moving 05/17/20: Xanax given last night Bowels moved yesterday Refusing to eat supper or breakfast today Agitated a bit today Post-void residual had 238 Hadnt voided since discontinued the cath yesterday 05/16/20: Dr. Houston will discontinue the catheter and evaluate voiding trial today Flomax and Urecholine maintained Bowels are moving Very difficult to recover from catastrophic stroke 05/15/20: Patient participating with therapy No pain reported Dr Houston consulted for james catheter 05/14/20: Patient denies pain Working well with structured therapies James cath still in place will need to DC soon Working on BM regimen Patient doing well Settling in well No pain reported Working with PT OT and ST Eating a bit more without aspiration No falls Checked meds and labs Conferred with RN Reviewed therapy notes Review of Systems General: Fatigue, Malaise Neurological: Weakness, Incoordination, Change in speech, Confusion Objective Exam Vital Signs Vital Signs Date Time Temp Pulse Resp B/P (MAP) Pulse Ox O2 Delivery O2 Flow Rate FiO2 05/18/20 20:56 96 Room Air 05/18/20 17:38 36.9 86 17 138/62 (87) 05/14/20 07:57 2.00 Capillary Refill : Less Than 3 Seconds General Appearance: No Apparent Distress, Anxious, Chronically ill, Thin HEENT: PERRL/EOMI, Normal ENT Inspection, Pharynx Normal Neck: Full Range of Motion, Normal Inspection, Non Tender, Supple, Carotid Bruit Respiratory: Chest Non Tender, Lungs Clear, No Accessory Muscle Use, No Res piratory Distress, Decreased Breath Sounds Cardiovascular: Regular Rate, Rhythm, No Edema, No Gallop, No JVD, No Murmur, Normal Peripheral Pulses Gastrointestinal: Normal Bowel Sounds, No Organomegaly, No Pulsatile Mass, Non Tender, Soft Back: Normal Inspection, No CVA Tenderness, No Vertebral Tenderness Extremity: Normal Capillary Refill, Normal Inspection, Normal Range of Motion (except right sided weakness), Non Tender, No Calf Tenderness, No Pedal Edema Neurologic/Psychiatric: Alert, No Motor/Sensory Deficits, Normal Mood/Affect, 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 FIM Transfers Therapy Code Descriptions/Definitions Functional [place] Measure: 0=Not Assessed/NA 4=Minimal Assistance 1=Total Assistance 5=Supervision or Setup 2=Maximal Assistance 6=Modified [place] 3=Moderate Assistance 7=Complete IndependenceSCALE: Activities may be completed with or without assistive devices. 5-Cmriouzibo-zpzobfc completes the activity by him/herself with no assistance from a helper. 5-Set-up or Clean-up Assistance-helper sets up or cleans up; patient completes activity. [place] assists only prior to or following the activity. 4-Supervision or Touching Assistance-helper provides verbal cues and/or touching/steadying and/or contact guard assistance as patient completes activity. Assistance may be provided throughout the activity or intermittently. 3-Partial/Moderate Assistance-helper does LESS THAN HALF the effort. [place] lifts, holds or supports trunk or limbs, but provides less than half the effort. 2-Substantial/Maximal Assistance-helper does MORE THAN HALF the effort. [place] lifts or holds trunk or limbs and provides more than half the effort. 9-Tjhavjogg-quwyqd does ALL the effort. Patient does none of the effort to complete the activity. Or, the assistance of 2 or more helpers is required for the patient to complete the activity. If activity was not attempted, code reason: 7-Patient Refused. 9-Not Applicable-not attempted and the patient did not perform the activity before the current illness, exacerbation or injury. 10-Not Attempted due to Environmental Limitations-(lack of equipment, weather restraints, etc.). 88-Not Attempted due to Medical Conditions or Safety Concerns. Roll Left to Right (QC): 4 Sit to Lying (QC): 4 Sit to Stand (QC): 3 Chair/Ugg-pu-Jjdto Xfer(QC): 3 Car Transfer (QC): 3 Gait Training Walk 10 feet (QC): 3 Walk 50 ft with 2 Turns(QC): 88 Walk 150 ft (QC): 88 Walking 10ft/uneven surface-QC: 88 Gait Persons Needed: 2 Gait Assistive Device: Walker Platform Wheelchair Training Distance: 150'x3 Wheel 50 ft with 2 turns (QC): 2 Wheel 150 ft (QC): 2 Stair Training 1 Step (curb) (QC): 88 4 Steps (QC): 88 12 Steps (QC): 88 Balance Picking up an Object (QC): 88 ADL-Treatment Eating (QC): 2 Oral Hygiene (QC): 3 (Min assist overall to brush teeth. Pt. is handed toothbrush with paste already on it. OT directs it to her mouth and she brushes. OT holds glass to her mouth so she can take drink to rinse. OT wipes off mouth.) Shower/Bathe Self (QC): 7 (OT asks pt. if she would like to shower. She states, "nah.") Upper Body Dressing (QC): 2 (Pt. attempts to doff her t-shirt but becomes very frustrated when she can't grasp it, or sequence how to do it. OT assists and then assists with donning shirt. Pt able to pull down over torso.) Lower Body Dressing (QC): 2 (Pt. requires max assist with donning brief and pants.) On/Off Footwear (QC): 1 (Dependent with slipper socks.) Toileting Hygiene (QC): 1 (Pt. slightly incontinent of bowel. Pt. sits on [facility] with pillows for positioning, and is able to have more BM, but unable to urinate. 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 Ensure adequate anticoagulation 2. PT, OT, and DEICER FINISHER eval's and treat 3. Oxygen via NC- wean as tolerated 4. Resume Home medications 5. Fall precautions 6. Dietary consult 7. DVT prophylaxis 05/13/20: Patient participating well No pain reported Continue current meds Advance diet 05/14/20: Rich HIGHTOWER soon Continue home meds Therapies to continue protocol 05/15/20: Dr Houston appreciated Monitor BP Monitor labs 05/16/20: Bladder meds Appreciate Dr Houston PT OT ST 05/17/20: Voiding trial Monitor closely Variable moods 05/18/20: Monitor BP Encourage PO intake James cath management (1) CVA (cerebral vascular accident) (2) Dysarthria (3) Dysphagia (4) PEG (percutaneous endoscopic gastrostomy) status (5) Expressive aphasia (6) Smoker (7) COPD (chronic obstructive pulmonary disease) (8) CAD (coronary artery disease) (9) Hx of CABG (10) James catheter in place (11) Retention of urine BECKI WAGNER DO May 18, 2020 11:46
--- NOTE | 2020-05-18 12:14 | Physical Therapy Daily Note ---
PT Daily Note-Current Subjective "ok baby" Pt.pleasant and gives full effort but needs many verbal and tactile cues. Pain Location: No Pain Reported Appearance appears dyspneic at times but O2 sats consistently >90% Mental Status Patient Orientation: Non-Verbal/Aphasic Attachments: Other-See Comments (mask) Transfers SCALE: Activities may be completed with or without assistive devices. 1-Pssojphjch-szukbpu completes the activity by him/herself with no assistance from a helper. 5-Set-up or Clean-up Assistance-helper sets up or cleans up; patient completes activity. [place] assists only prior to or following the activity. 4-Supervision or Touching Assistance-helper provides verbal cues and/or touching/steadying and/or contact guard assistance as patient completes activity. Assistance may be provided throughout the activity or intermittently. 3-Partial/Moderate Assistance-helper does LESS THAN HALF the effort. [place] lifts, holds or supports trunk or limbs, but provides less than half the effort. 2-Substantial/Maximal Assistance-helper does MORE THAN HALF the effort. [place] lifts or holds trunk or limbs and provides more than half the effort. 0-Ieaickxib-ykujgj does ALL the effort. Patient does none of the effort to complete the activity. Or, the assistance of 2 or more helpers is required for the patient to complete the activity. If activity was not attempted, code reason: 7-Patient Refused. 9-Not Applicable-not attempted and the patient did not perform the activity before the current illness, exacerbation or injury. 10-Not Attempted due to Environmental Limitations-(lack of equipment, weather restraints, etc.). 88-Not Attempted due to Medical Conditions or Safety Concerns. Roll Left & Right (QC): 4 Sit to Lying (QC): 4 Lying to Sitting/Side of Bed(Q: 4 Sit to Stand (QC): 4 Chair/Uja-hj-Qqvfa Xfer(QC): 4 requires positioning assist and support and positioning of RUE Weight Bearing Right Lower Extremity: Right Full Weight Bearing Left Lower Extremity: Left Full Weight Bearing Gait Training Does the Patient Walk?: Yes Walk 10 feet (QC): 4 Gait Persons Needed: 1 Gait Assistive Device: Handheld Assist (and watt rail on left) gait at rail in hallway, FIELD PIPE LINES SUPERVISOR right and w/c to follow 15 ft, pt.able to advance RLE indep but slowly, managed wt shift well, pt. happy with this Wheelchair Training Does the Pt Use a Wheelchair?: Yes Wheel 50 ft with 2 turns (QC): 3 Type of Wheelchair: Manual Exercises Supine Ex: Bridging, Ankle pumps, Quad Set, Rolling, Heel Slides, Short Arc Quads, Scooting, Straight leg raise, Hip abd/add Supine Reps: 20 (assisted) Assessment Current Status: Good Progress PT Short Term Goals Short Term Goals Time Frame: May 19, 2020 Roll Left & Right: 4 Sit to lyin Lying to sitting on side of be: 3 Chair/yck-it-jrhki transfer: 3 Walk 10 feet: 3 Does pt use a wc or scooter: Yes Wheel 50ft w/2 turns: 3 Wheel 150 feet: 3 PT Residential Goals Residential Goals PT Residential Goals Time Frame: Jun 02, 2020 Roll Left & Right (QC): 6 Sit to Lying (QC): 6 Lying-Sitting on Side/Bed(QC): 6 Sit to Stand (QC): 4 Chair/Fsw-bx-Cfmhr Xfer(QC): 4 Toilet Transfer (QC): 4 Car Transfer (QC): 4 Does the Patient Walk: Yes Walk 10 feet (QC): 3 Walk 50ft with 2 Turns (QC): 3 Walk 150 ft (QC): 88 Walking 10ft on Uneven Surface: 3 1 Step (curb) (QC): 3 4 Steps (QC): 88 12 Steps (QC): 88 Picking up an Object (QC): 88 Does the Pt use WC or Scooter?: Yes Wheel 50 feet with 2 turns (QC: 6 Wheel 150 feet: 6 PT Plan Treatment/Plan Treatment Plan: Continue Plan of Care Treatment Plan: Bed Mobility, Education, Functional Activity Robbin, Functional Strength, Group Therapy, Gait, Safety, Therapeutic Exercise, Transfers Treatment Duration: May 13, 2020 Frequency: At least 5 of 7 days/Wk (IRF) Estimated Hrs Per Day: 1.5 hours per day Patient and/or Family Agrees t: Yes Safety Risks/Education Patient Education: Gait Training, Transfer Techniques, Correct Positioning, Disease Process, Safety Issues Teaching Recipient: Patient Teaching Methods: Demonstration, Discussion Response to Teaching: Verbalize Understanding, Return Demonstration, Reinforcement Needed Time/GCodes Time In: 1200 Time Out: 1315 Total Billed Treatment Time: 75 Total Billed Treatment 1,EX30m,FA30m,GT15m JANA OROSCO KEYMODULE ASSEMBLY MACHINE TENDER May 18, 2020 12:13
--- NOTE | 2020-05-18 13:29 | Occupational Ther Daily Note ---
OT Current Status-Daily Note Subjective No pain reported. Mental Status/Objective Patient Orientation: Person Attachments: Villanueva Catheter ADL-Treatment Therapy Code Descriptions/Definitions Functional [place] Measure: 0=Not Assessed/NA 4=Minimal Assistance 1=Total Assistance 5=Supervision or Setup 2=Maximal Assistance 6=Modified [place] 3=Moderate Assistance 7=Complete IndependenceSCALE: Activities may be completed with or without assistive devices. 6-Whpxjqbkvw-jfktmdu completes the activity by him/herself with no assistance from a helper. 5-Set-up or Clean-up Assistance-helper sets up or cleans up; patient completes activity. [place] assists only prior to or following the activity. 4-Supervision or Touching Assistance-helper provides verbal cues and/or touching/steadying and/or contact guard assistance as patient completes activity. Assistance may be provided throughout the activity or intermittently. 3-Partial/Moderate Assistance-helper does LESS THAN HALF the effort. [place] lifts, holds or supports trunk or limbs, but provides less than half the effort. 2-Substantial/Maximal Assistance-helper does MORE THAN HALF the effort. [place] lifts or holds trunk or limbs and provides more than half the effort. 3-Dmsxkmcix-wqeyzj does ALL the effort. Patient does none of the effort to complete the activity. Or, the assistance of 2 or more helpers is required for the patient to complete the activity. If activity was not attempted, code reason: 7-Patient Refused. 9-Not Applicable-not attempted and the patient did not perform the activity before the current illness, exacerbation or injury. 10-Not Attempted due to Environmental Limitations-(lack of equipment, weather restraints, etc.). 88-Not Attempted due to Medical Conditions or Safety Concerns. Eating (QC): 2 (Max assist to initiate holding spoon, and then able to only hold briefly without OT putting it back in hand. [place] assist to bring spoon to mouth. Pt. unable to hold the dish in other hand. Pt. used left hand to feed.) Shower/Bathe Self (QC): 2 (Pt. has difficulty initiating any bathing task. She is handed washcloth and shown where to wash. She might "dab" at that spot, but then requires assistance to wash it thoroughly. OT washed all parts.) Upper Body Dressing (QC): 2 (Pt. is unable to thread arms or head, but is able to assist with pulling shirt down over torso.) Lower Body Dressing (QC): 1 (Max assist to don brief and pants. Assist of one person to stand while another person pulls them over hips.) On/Off Footwear: 1 Toileting Hygiene (QC): 1 (Pt. incontinent of bowel in shower.) Other Treatment Pt. seen for two different sessions this a.m. At first session,([id number]),pt. participated in bilateral coordination tasks using functional activities. Pt. given pack of crackers and was encouraged to attempt to open them. She was not able to do this and was not able to shift into her left hand. Pt. attempted with pack of plastic utensils that had been given to her. She put them in her mouth while in plastic but did not attempt to bite them or tear the plastic. OT asks pt. if she would like some ice cream and she would. This was okay'd by nursing, and so OT brought in ice cream. Pt. unable to determine what to do with each thing. She was given spoon in her left hand, since she has strength in that hand, and pt. did not seem to understand how to hold spoon. OT showed her, and then placed again with BELKOFSKI assist. OT dipped the spoon in ice cream, but pt. did not know how to bring it to mouth. OT provided BELKOFSKI assist and put spoon into mouth. Pt. was then able to go back and forth with spoon in left hand, from cup to mouth. All needs met and OT came back after speech therapy, from ([id number]). Pt. transferred supine-sit with mod assist, and was able to scoot to side of bed. Transferred with mod assist to shower chair, and taken to shower room. Pt. required max cues to initiate and sequence each step of showering. OT assisted with all areas, and then with dressing as well. Noted pt tearful at times but also states, "good, good," and "okay baby." Pt. transferred to wheelchair from shower chair with mod assist. Taken to therapy gym and completed balloon bat activity, with encouragement to use right hand. Pt. would begin to, but was unable to lift at shoulder. Participated with left UE, with cues. Taken back to room and transferred to reclining chair with mod assist. All needs met and pt. with bed alarm. Education OT Patient Education: Correct positioning, Exercise program, Modified ADL techniques, Progress toward Goal/Update tx plan, Purpose of tx/functional activities, Reviewed precautions, Rehab process, Transfer techniques Teaching Recipient: Patient Teaching Methods: Demonstration, Discussion Response to Teaching: Verbalize Understanding, Reinforcement Needed OT Short Term Goals Short Term Goals Time Frame: May 26, 2020 Eatin Oral hygiene: 3 Toileting hygiene: 3 Shower/bathe self: 3 Upper body dressin Lower body dressin Putting on/taking off footwear: 3 OT Police Cadet Goals Long-Term Goals Time Frame: Jun 09, 2020 Eating (QC): 4 Oral Hygiene (QC): 4 Toileting Hygiene (QC): 3 Shower/Bathe Self (QC): 3 Upper Body Dressing (QC): 5 Lower Body Dressing (QC): 4 On/Off Footwear (QC): 4 Additional Goals: 1-Demonstrate ADL Tasks, 2-Verbalize Understanding, 3- ImproveStrength/Robbin 1=Demonstrate adherence to instructed precautions during ADL tasks. 2=Patient will verbalize/demonstrate understanding of assistive devices/modific ations for ADL. 3=Patient will improve strength/tolerance for activity to enable patient to perform ADL's. OT Education/Plan Problem List/Assessment Assessment: Decreased Activ Tolerance, Decreased UE Strength, Dependent Transfers, Impaired Bed Mobility, Impaired Cognition, Impaired Coordination, Impaired Funct Balance, Impaired I ADL's, Impaired Self-Care Skills, Restricted Funct UE ROM, Visual-Perceptual Deficit Visual perceptual issues difficult to pinpoint due to severe global aphasia. Discharge Recommendations Plan/Recommendations: Continue POC Therapy Discharge Recommendati: 24 Hour Supervision, Post Acute OT Treatment Plan/Plan of Care Treatment,Training & Education: Yes Patient would benefit from OT for education, treatment and training to promote independence in ADL's, mobility, safety and/or upper extremity function for ADL's. Plan of Care: ADL Retraining, Functional Mobility, Group Exercise/Act as Ind, UE Funct Exercise/Act Treatment Duration: Jun 09, 2020 Frequency: At least 5 of 7 days/Wk (IRF) Estimated Hrs Per Day: 1.5 hours per day Agreement: Yes Rehab Potential: Fair Time/GCodes Start Time: 08:30 Stop Time: 10:15 Total Time Billed (hr/min): 75 Billed Treatment Time [id number] 1, ADL x 30minutes [id number] 1, ADL x 45minutes RALPH LUO OT May 18, 2020 13:29
[2020-05-18] MEDS: TAMSULOSIN 0.4 MG (FLOMAX) CAP PO SCH (17:02)
[2020-05-18 17:38] VITALS: BP 138/62
[2020-05-18] MEDS: ALPRAZolam 0.25 MG (XANAX) TAB PO PRN (21:41)
[2020-05-19] MEDS: inSUlin ASPART (NovoLOG) 1 UNIT/0.01 ML (CHARGE PER UNIT) SC SCH ×3 (05:42→15:42)
[2020-05-19] MEDS: BETHANECHOL 25 MG (URECHOLINE) TAB PO SCH ×4 (05:48→21:50)
[2020-05-19 06:30] VITALS: BP 123/60
[2020-05-19 08:00] VITALS: BP 138/66
[2020-05-19] MEDS: DOCUSATE SODIUM 100 MG (COLACE) CAP PO SCH ×2 (08:53→21:50)
[2020-05-19] MEDS: CARVEDILOL 3.125 MG (COREG) TABLET PO SCH ×2 (08:53→21:50)
[2020-05-19] MEDS: SENNA W/DOCUSATE (SENOKOT S) TABLET PO SCH ×2 (08:53→21:51)
[2020-05-19] MEDS: amLODIPine 5 MG (NORVASC) TAB PO SCH (08:53)
[2020-05-19] MEDS: FAMOTIDINE 20 MG (PEPCID) TABLET PO SCH (08:53)
[2020-05-19] MEDS: ASPIRIN 81 MG CHEW (CHILDREN'S ASA) PO SCH (08:53)
[2020-05-19] MEDS: CLOPIDOGREL 75 MG (PLAVIX) TABLET PO SCH (08:53)
--- NOTE | 2020-05-19 09:05 | Physical Therapy Daily Note ---
PT Daily Note-Current Subjective Pt laying Supine in bed upon arrival. Pt agrees to PT. Mental Status Patient Orientation: Person, [place] Attachments: Villanueva Catheter Transfers SCALE: Activities may be completed with or without assistive devices. 0-Pbesxhpcfr-epulswa completes the activity by him/herself with no assistance from a helper. 5-Set-up or Clean-up Assistance-helper sets up or cleans up; patient completes activity. [place] assists only prior to or following the activity. 4-Supervision or Touching Assistance-helper provides verbal cues and/or touching/steadying and/or contact guard assistance as patient completes activity. Assistance may be provided throughout the activity or intermittently. 3-Partial/Moderate Assistance-helper does LESS THAN HALF the effort. [place] lifts, holds or supports trunk or limbs, but provides less than half the effort. 2-Substantial/Maximal Assistance-helper does MORE THAN HALF the effort. [place] lifts or holds trunk or limbs and provides more than half the effort. 8-Hkjmwrrop-sgrmwl does ALL the effort. Patient does none of the effort to complete the activity. Or, the assistance of 2 or more helpers is required for the patient to complete the activity. If activity was not attempted, code reason: 7-Patient Refused. 9-Not Applicable-not attempted and the patient did not perform the activity before the current illness, exacerbation or injury. 10-Not Attempted due to Environmental Limitations-(lack of equipment, weather restraints, etc.). 88-Not Attempted due to Medical Conditions or Safety Concerns. Weight Bearing Right Lower Extremity: Right Full Weight Bearing Left Lower Extremity: Left Full Weight Bearing Wheelchair Training Does the Pt Use a Wheelchair?: No Exercises Supine Ex: Ankle pumps, Quad Set, Glut sets, Heel Slides, Straight leg raise, Hip abd/add Supine Reps: 15 (2 sets) Treatments Completes 2 sets Supine Ex. Pt gets anxious when discussion of TF to recliner. GRAPHIC DESIGN INTERN gives instruction on Pursed lip breathing to aid in anxiety. Pt resting and Nurse gives meds as tx ends. All needs met, call light in hand. Assessment Current Status: Fair Progress Pt is very fatigued and anxious during tx. PT Short Term Goals Short Term Goals Time Frame: May 19, 2020 Roll Left & Right: 4 Sit to lyin Lying to sitting on side of be: 3 Chair/ilh-qs-lgfqj transfer: 3 Walk 10 feet: 3 Does pt use a wc or scooter: Yes Wheel 50ft w/2 turns: 3 Wheel 150 feet: 3 PT Custodial Goals Life Insurance Specialist Goals PT Life Insurance Specialist Goals Time Frame: Jun 02, 2020 Roll Left & Right (QC): 6 Sit to Lying (QC): 6 Lying-Sitting on Side/Bed(QC): 6 Sit to Stand (QC): 4 Chair/Jqj-ix-Ffmhp Xfer(QC): 4 Toilet Transfer (QC): 4 Car Transfer (QC): 4 Does the Patient Walk: Yes Walk 10 feet (QC): 3 Walk 50ft with 2 Turns (QC): 3 Walk 150 ft (QC): 88 Walking 10ft on Uneven Surface: 3 1 Step (curb) (QC): 3 4 Steps (QC): 88 12 Steps (QC): 88 Picking up an Object (QC): 88 Does the Pt use WC or Scooter?: Yes Wheel 50 feet with 2 turns (QC: 6 Wheel 150 feet: 6 PT Plan Problem List Problem List: Activity Tolerance, Functional Strength Treatment/Plan Treatment Plan: Continue Plan of Care Treatment Plan: Bed Mobility, Education, Functional Activity [place], Functional Strength, Group Therapy, Gait, Safety, Therapeutic Exercise, Transfers Treatment Duration: May 13, 2020 Frequency: At least 5 of 7 days/Wk (IRF) Estimated Hrs Per Day: 1.5 hours per day Patient and/or Family Agrees t: Yes Safety Risks/Education Patient Education: Transfer Techniques, Correct Positioning, Safety Issues Teaching Recipient: Patient Response to Teaching: Reinforcement Needed Time/GCodes Time In: 800 Time Out: 900 Total Billed Treatment Time: 60 Total Billed Treatment 1, EX x2 (35m) & FA x2 (25m) JONATHAN KESSLER GRAPHIC DESIGN INTERN May 19, 2020 09:05
--- NOTE | 2020-05-19 09:22 | Speech Therapy Daily Note ---
Speech Daily Progress Note Subjective Date Seen by Provider: May 19, 2020 Time Seen by Provider: 00:30 Patient was resting in her bed following her PT session. Patient was more alert this date. Objective Patient completed a series of confrontational naming tasks of pictures of everyday objects with 60% given moderate visual/verbal cues. Patient demo safety of small bites/sips with oral intake at 80%. Assessment Assessment Current Status: Good Progress Treatment Plan Continue Plan of Care Speech Short Term Goals Short Term Goals Short Term Goals 1) The patient will complete cognitive tasks related to memory, safety awareness and problem solving at 80% with minimal cues. 2) The patient will complete speech tasks to improve intelligibility at 80% with minimal cues. 3) The patient will complete confrontational naming tasks at 90% with minimal cues. 4) The patient will complete OME for improved oral status for safe oral intake at 80% or greater with minimal cues. Speech Residential Goals Residential Goals Patient will improve communication abilities and safe oral intake in order to return to prior level. Speech-Plan Patient/Family Goals Patient/Family Goals: Patient plans on returning to her home with family upon discharge. Treatment Plan Speech Therapy Treatment Plan: Continue Plan of Care Treatment Duration: May 25, 2020 Frequency: 4 times per week (Patient will receive ST 4-5x per week) Estimated Hrs Per Day: .5 hour per day Rehab Potential: Fair Barriers to Learning: Patient's recent CVA, age Pt/Family Agrees to Plan: Yes Safety Risks/Education Teaching Recipient: Patient Teaching Methods: Demonstration, Discussion Response to Teaching: Verbalize Understanding, Return Demonstration Education Topics Provided: Utilization of the call light as needed, continued safety of oral intake Time Speech Therapy Time In: 09:00 Speech Therapy Time Out: 09:30 Total Billed Time: 30 Billed Treatment Time 1, SLAMIE, DYST SHERYL Mckenzie May 19, 2020 09:22
[2020-05-19] MEDS: polyethylene glycoL POWDER 17 GM (MIRALAX) PACK PO SCH ×2 (09:57→21:45)
[2020-05-19] MEDS: RT-ALBUTEROL/IPRATROPIUM 3 ML (DUONEB) VIAL IH SCH (10:26)
[2020-05-19] MEDS: RT-BUDESONIDE NEBS 0.5 MG/2ML (PULMICORT) AMP IH SCH (10:26)
--- NOTE | 2020-05-19 10:47 | PM&R Progress Note ---
Subjective HPI/CC On Admission Date Seen by Provider: May 19, 2020 Time Seen by Provider: 12:30 Subjective/Events-last exam 05/19/20: Pt has varying participation with PT and OT Accu cheks changed to BID Will monitor pt closely Denies any pain Is a feeder 05/18/20: Re inserted the james since urinary retention continued Increasing oral fluids Urecholine was increased dose barron Bowels are moving 05/17/20: Xanax given last night Bowels moved yesterday Refusing to eat supper or breakfast today Agitated a bit today Post-void residual had 238 Hadnt voided since discontinued the cath yesterday 05/16/20: Dr. Houston will discontinue the catheter and evaluate voiding trial today Flomax and Urecholine maintained Bowels are moving Very difficult to recover from catastrophic stroke 05/15/20: Patient participating with therapy No pain reported Dr Houston consulted for james catheter 05/14/20: Patient denies pain Working well with structured therapies James cath still in place will need to DC soon Working on BM regimen Patient doing well Settling in well No pain reported Working with PT OT and ST Eating a bit more without aspiration No falls Checked meds and labs Conferred with RN Reviewed therapy notes Review of Systems General: Fatigue, Malaise Neurological: Weakness, Incoordination, Change in speech, Confusion Objective Exam Vital Signs Vital Signs Date Time Temp Pulse Resp B/P (MAP) Pulse Ox O2 Delivery O2 Flow Rate FiO2 05/19/20 20:45 97 Room Air 05/19/20 17:09 36.6 79 20 140/64 (89) 05/14/20 07:57 2.00 Capillary Refill : Less Than 3 Seconds General Appearance: No Apparent Distress, Anxious, Chronically ill, Thin HEENT: PERRL/EOMI, Normal ENT Inspection, Pharynx Normal Neck: Full Range of Motion, Normal Inspection, Non Tender, Supple, Carotid Bruit Respiratory: Chest Non Tender, Lungs Clear, No Accessory Muscle Use, No Respiratory Distress, Decreased Breath Sounds Cardiovascular: Regular Rate, Rhythm, No Edema, No Gallop, No JVD, No Murmur, Normal Peripheral Pulses Gastrointestinal: Normal Bowel Sounds, No Organomegaly, No Pulsatile Mass, Non Tender, Soft Back: Normal Inspection, No CVA Tenderness, No Vertebral Tenderness Extremity: Normal Capillary Refill, Normal Inspection, Normal Range of Motion (except right sided weakness), Non Tender, No Calf Tenderness, No Pedal Edema Neurologic/Psychiatric: Alert, No Motor/Sensory Deficits, Normal Mood/Affect, Abnormal game producer II-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 FIM Transfers Therapy Code Descriptions/Definitions Functional [place] Measure: 0=Not Assessed/NA 4=Minimal Assistance 1=Total Assistance 5=Supervision or Setup 2=Maximal Assistance 6=Modified [place] 3=Moderate Assistance 7=Complete IndependenceSCALE: Activities may be completed with or without assistive devices. 0-Dbeohtydtl-kovutih completes the activity by him/herself with no assistance from a helper. 5-Set-up or Clean-up Assistance-helper sets up or cleans up; patient completes activity. [place] assists only prior to or following the activity. 4-Supervision or Touching Assistance-helper provides verbal cues and/or touching/steadying and/or contact guard assistance as patient completes activity. Assistance may be provided throughout the activity or intermittently. 3-Partial/Moderate Assistance-helper does LESS THAN HALF the effort. [place] lifts, holds or supports trunk or limbs, but provides less than half the effort. 2-Substantial/Maximal Assistance-helper does MORE THAN HALF the effort. [place] lifts or holds trunk or limbs and provides more than half the effort. 8-Szalcqhpd-hqgknz does ALL the effort. Patient does none of the effort to complete the activity. Or, the assistance of 2 or more helpers is required for the patient to complete the activity. If activity was not attempted, code reason: 7-Patient Refused. 9-Not Applicable-not attempted and the patient did not perform the activity before the current illness, exacerbation or injury. 10-Not Attempted due to Environmental Limitations-(lack of equipment, weather restraints, etc.). 88-Not Attempted due to Medical Conditions or Safety Concerns. Roll Left to Right (QC): 4 Sit to Lying (QC): 4 Sit to Stand (QC): 4 Chair/Glf-jh-Aikzy Xfer(QC): 4 Car Transfer (QC): 3 Gait Training Does the Patient Walk?: Yes Walk 10 feet (QC): 4 Walk 50 ft with 2 Turns(QC): 88 Walk 150 ft (QC): 88 Walking 10ft/uneven surface-QC: 88 Gait Persons Needed: 1 Gait Assistive Device: Handheld Assist (and watt rail on left) Wheelchair Training Does the Pt Use a Wheelchair?: Yes Distance: 150'x3 Wheel 50 ft with 2 turns (QC): 3 Wheel 150 ft (QC): 2 Type of Wheelchair: Manual Stair Training 1 Step (curb) (QC): 88 4 Steps (QC): 88 12 Steps (QC): 88 Balance Picking up an Object (QC): 88 ADL-Treatment Eating (QC): 2 (Max assist to initiate holding spoon, and then able to only hold briefly without OT putting it back in hand. [place] assist to bring spoon to mouth. Pt. unable to hold the dish in other hand. Pt. used left hand to feed.) Oral Hygiene (QC): 3 (Min assist overall to brush teeth. Pt. is handed to othbrush with paste already on it. OT directs it to her mouth and she brushes. OT holds glass to her mouth so she can take drink to rinse. OT wipes off mouth.) Shower/Bathe Self (QC): 2 (Pt. has difficulty initiating any bathing task. She is handed washcloth and shown where to wash. She might "dab" at that spot, but then requires assistance to wash it thoroughly. OT washed all parts.) Upper Body Dressing (QC): 2 (Pt. is unable to thread arms or head, but is able to assist with pulling shirt down over torso.) Lower Body Dressing (QC): 1 (Max assist to don brief and pants. Assist of one person to stand while another person pulls them over hips.) On/Off Footwear (QC): 1 Toileting Hygiene (QC): 1 (Pt. 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 Ensure adequate anticoagulation 2. PT, OT, and POKER SUPERVISOR eval's and treat 3. Oxygen via NC- wean as tolerated 4. Resume Home medications 5. Fall precautions 6. Dietary consult 7. DVT prophylaxis 05/13/20: Patient participating well No pain reported Continue current meds Advance diet 05/14/20: James DC soon Continue home meds Therapies to continue protocol 05/15/20: Dr Houston appreciated Monitor BP Monitor labs 05/16/20: Bladder meds Appreciate Dr Houston PT OT ST 05/17/20: Voiding trial Monitor closely Variable moods 05/18/20: Monitor BP Encourage PO intake James cath management 05/19/20: Encourage participation with therapies Monitor james cath (1) CVA (cerebral vascular accident) (2) Dysarthria (3) Dysphagia (4) PEG (percutaneous endoscopic gastrostomy) status (5) Expressive aphasia (6) Smoker (7) COPD (chronic obstructive pulmonary disease) (8) CAD (coronary artery disease) (9) Hx of CABG (10) James catheter in place (11) Retention of urine BECKI WAGNER DO May 19, 2020 10:47
--- NOTE | 2020-05-19 12:24 | Occupational Ther Daily Note ---
OT Current Status-Daily Note Subjective No pain reported. Mental Status/Objective Patient Orientation: Unable to Assess Attachments: Villanueva Catheter ADL-Treatment Therapy Code Descriptions/Definitions Functional [place] Measure: 0=Not Assessed/NA 4=Minimal Assistance 1=Total Assistance 5=Supervision or Setup 2=Maximal Assistance 6=Modified [place] 3=Moderate Assistance 7=Complete IndependenceSCALE: Activities may be completed with or without assistive devices. 8-Yrdyhedpkz-rqxazga completes the activity by him/herself with no assistance from a helper. 5-Set-up or Clean-up Assistance-helper sets up or cleans up; patient completes activity. [place] assists only prior to or following the activity. 4-Supervision or Touching Assistance-helper provides verbal cues and/or touching/steadying and/or contact guard assistance as patient completes activity. Assistance may be provided throughout the activity or intermittently. 3-Partial/Moderate Assistance-helper does LESS THAN HALF the effort. [place] lifts, holds or supports trunk or limbs, but provides less than half the effort. 2-Substantial/Maximal Assistance-helper does MORE THAN HALF the effort. [place] lifts or holds trunk or limbs and provides more than half the effort. 9-Rqcbwrsdr-vgtctt does ALL the effort. Patient does none of the effort to compl ete the activity. Or, the assistance of 2 or more helpers is required for the patient to complete the activity. If activity was not attempted, code reason: 7-Patient Refused. 9-Not Applicable-not attempted and the patient did not perform the activity before the current illness, exacerbation or injury. 10-Not Attempted due to Environmental Limitations-(lack of equipment, weather restraints, etc.). 88-Not Attempted due to Medical Conditions or Safety Concerns. Oral Hygiene (QC): 4 (SBA and cues to brush teeth seated at sink.) Upper Body Dressing (QC): 2 (Pt. attempts with cues to pull at shirt, but does not actually pull it. OT pulls off over head and pt. is able to pull left arm out with max cues. Max cues given to use left arm to pull off of right arm, and pt. does not understand. Dependent to don shirt.) Other Treatment Pt. in bed when OT enters this a.m. She is able to acknowledge OT, but requires cues to look at OT. Keeps her head down and mumbles while attempting to talk. Words are unintelligible. Pt. is able to follow cue of transferring supine-sit with SBA and increased time. Transfers to wheelchair with mod assist and cues. Pt. dabs at hair with brush seated at sink, and so OT does this for her. Max cues given to brush teeth. Pt. seems SOA and agitated throughout. BP is 110/55 and sats at 98% on room air. Nurse aide takes blood sugar and it is okay. Pt. taken to therapy gym. OT provides series of activities to promote fine motor coordination and strength, following directions, processing steps. Pt. has great difficulty following cues unless they are told to her multiple times. She is able to replicate simple 3 block structure with visual with max cues and multiple attempts. She is able to pinch clothespin on bar after multiple attempts, visual cues, and then [place] assist. OT puts right UE on arm skate to encourage gravity eliminated shoulder ROM. Pt. is unable to follow or sequence attempting to move her arm on the skate, even after OT does this for her. Skate removed and items are placed on pt's right on the table. Pt. is unable to see anything it seems on right side. She is unable to understand or follow the cues, "look at the right side, look right here, look all over table." Due to aphasia both receptively and expressively, pt. is having great difficulty understanding what to do, how to sequence, and how to complete a task. Pt. taken back to room after session and transferred to reclining chair with mod assist. All needs met and pt. has chair alarm on. Education OT Patient Education: Correct positioning, Exercise program, Modified ADL techniques, Progress toward Goal/Update tx plan, Purpose of tx/functional activities, Reviewed precautions, Rehab process, Transfer techniques Teaching Recipient: Patient Teaching Methods: Demonstration, Discussion Response to Teaching: Unable to Return Demonstration, Unable to Comprehend OT Short Term Goals Short Term Goals Time Frame: May 26, 2020 Eatin Oral hygiene: 3 Toileting hygiene: 3 Shower/bathe self: 3 Upper body dressin Lower body dressin Putting on/taking off footwear: 3 OT Director Of Academic Support Goals Director Of Academic Support Goals Time Frame: Jun 09, 2020 Eating (QC): 4 Oral Hygiene (QC): 4 Toileting Hygiene (QC): 3 Shower/Bathe Self (QC): 3 Upper Body Dressing (QC): 5 Lower Body Dressing (QC): 4 On/Off Footwear (QC): 4 Additional Goals: 1-Demonstrate ADL Tasks, 2-Verbalize Understanding, 3- ImproveStrength/Robbin 1=Demonstrate adherence to instructed precautions during ADL tasks. 2=Patient will verbalize/demonstrate understanding of assistive devices/modifications for ADL. 3=Patient will improve strength/tolerance for activity to enable patient to perform ADL's. OT Education/Plan Problem List/Assessment Assessment: Decreased Activ Tolerance, Decreased Safety Aware, Decreased UE Strength, Dependent Transfers, Impaired Bed Mobility, Impaired Cognition, Impaired Coordination, Impaired Funct Balance, Impaired I ADL's, Impaired Self- Care Skills, Restricted Funct UE ROM, Visual-Perceptual Deficit Visual perceptual issues difficult to pinpoint due to severe global aphasia. Discharge Recommendations Plan/Recommendations: Continue POC Therapy Discharge Recommendati: 24 Hour Supervision, Post Acute OT Treatment Plan/Plan of Care Treatment,Training & Education: Yes Patient would benefit from OT for education, treatment and training to promote independence in ADL's, mobility, safety and/or upper extremity function for ADL's. Plan of Care: ADL Retraining, Functional Mobility, Group Exercise/Act as Ind, UE Funct Exercise/Act Treatment Duration: Jun 09, 2020 Frequency: At least 5 of 7 days/Wk (IRF) Estimated Hrs Per Day: 1.5 hours per day Agreement: Yes Rehab Potential: Fair Time/GCodes Start Time: 10:30 Stop Time: 11:45 Total Time Billed (hr/min): 75 Billed Treatment Time 1, ADL x 30minutes, FA x 45minutes RALPH LUO OT May 19, 2020 12:24
--- NOTE | 2020-05-19 13:09 | Progress Note - Urology ---
Progress Note-Urology Progress Notes/Assess & Plan Progress/Assessment & Plan TOV TODAY Final Diagnosis URINE RETENTION TANIA MENDEZ MD May 19, 2020 13:09
--- NOTE | 2020-05-19 13:42 | Physical Therapy Daily Note ---
PT Daily Note-Current Subjective Pt reclined in chair upon arrival. Pt agrees to PT. Pain Location: No Pain Reported Mental Status Patient Orientation: Person, Mumbles Attachments: Villanueva Catheter Transfers SCALE: Activities may be completed with or without assistive devices. 2-Nrtqgzxfah-qyekfil completes the activity by him/herself with no assistance from a helper. 5-Set-up or Clean-up Assistance-helper sets up or cleans up; patient completes activity. [place] assists only prior to or following the activity. 4-Supervision or Touching Assistance-helper provides verbal cues and/or touc hiram/steadying and/or contact guard assistance as patient completes activity. Assistance may be provided throughout the activity or intermittently. 3-Partial/Moderate Assistance-helper does LESS THAN HALF the effort. [place] lifts, holds or supports trunk or limbs, but provides less than half the effort. 2-Substantial/Maximal Assistance-helper does MORE THAN HALF the effort. [place] lifts or holds trunk or limbs and provides more than half the effort. 4-Yefjvmwqf-vkxyzg does ALL the effort. Patient does none of the effort to complete the activity. Or, the assistance of 2 or more helpers is required for the patient to complete the activity. If activity was not attempted, code reason: 7-Patient Refused. 9-Not Applicable-not attempted and the patient did not perform the activity before the current illness, exacerbation or injury. 10-Not Attempted due to Environmental Limitations-(lack of equipment, weather restraints, etc.). 88-Not Attempted due to Medical Conditions or Safety Concerns. Sit to Lying (QC): 4 Sit to Stand (QC): 4 Weight Bearing Right Lower Extremity: Right Full Weight Bearing Left Lower Extremity: Left Full Weight Bearing Treatments APPLE CHECKER assists in TF from recliner to EOB then Supine. Pt is assisted in repositioning then resting in bed. Pt has all needs met, call light in hand. Assessment Current Status: Good Progress Pt is able to follow VC well but fatigues & SOA after TF. PT Short Term Goals Short Term Goals Time Frame: May 19, 2020 Roll Left & Right: 4 Sit to lyin Lying to sitting on side of be: 3 Chair/kva-zq-vhgve transfer: 3 Walk 10 feet: 3 Does pt use a wc or scooter: Yes Wheel 50ft w/2 turns: 3 Wheel 150 feet: 3 PT Care Home Goals Marketing Strategist Goals PT Marketing Strategist Goals Time Frame: Jun 02, 2020 Roll Left & Right (QC): 6 Sit to Lying (QC): 6 Lying-Sitting on Side/Bed(QC): 6 Sit to Stand (QC): 4 Chair/Elw-vm-Wyefa Xfer(QC): 4 Toilet Transfer (QC): 4 Car Transfer (QC): 4 Does the Patient Walk: Yes Walk 10 feet (QC): 3 Walk 50ft with 2 Turns (QC): 3 Walk 150 ft (QC): 88 Walking 10ft on Uneven Surface: 3 1 Step (curb) (QC): 3 4 Steps (QC): 88 12 Steps (QC): 88 Picking up an Object (QC): 88 Does the Pt use WC or Scooter?: Yes Wheel 50 feet with 2 turns (QC: 6 Wheel 150 feet: 6 PT Plan Problem List Problem List: Activity Tolerance, Functional Strength, Transfer Treatment/Plan Treatment Plan: Continue Plan of Care Treatment Plan: Bed Mobility, Education, Functional Activity Robbin, Functional Strength, Group Therapy, Gait, Safety, Therapeutic Exercise, Transfers Treatment Duration: May 13, 2020 Frequency: At least 5 of 7 days/Wk (IRF) Estimated Hrs Per Day: 1.5 hours per day Patient and/or Family Agrees t: Yes Safety Risks/Education Patient Education: Transfer Techniques, Correct Positioning, Safety Issues Teaching Recipient: Patient Teaching Methods: Discussion Response to Teaching: Verbalize Understanding Time/GCodes Time In: 1300 Time Out: 1315 Total Billed Treatment Time: 15 Total Billed Treatment 1, FA (15m) JONATHAN KESSLER APPLE CHECKER May 19, 2020 13:42
--- NOTE | 2020-05-19 15:00 | NUR ---
CM/SS PATIENT CARE CONFERENCE Discussed Summary with both children, Emanuel Nicolas and Rula Junior. They understood that the team consensus is patient will need caregiver support; family education/training session scheduled for May 24 at 0900. Updated data warehouse manager, PT Step Down Specialist/Hellen, and ARU /Luzma and CL/Gisel. Emanuel and Rula will be permitted in for this timed session during this Covid no visitor protocol. Rula will be bringing a POA and DPOA for patient review and signature, hospital notary to be available as necessary. Barriers to be discuss after family session, most likely financial stressors for out of pocket private pay caregivers. [place] indicates [facility] initiated an [place] Medicaid application; however, they never did provide proof of income so the application likely did not move forward. Will explore and advise family about moving forward on a [place] application since patient will become a resident of [place] at [facility] and will no longer reside in [place]. Addendum: 05/20/20 at 1359 by CALI KAUR Team will facilitate a FaceTime visit between patient and her son Emanuel after her last therapy session this afternoon. [employer]astic [employer] emailed a copy of the Caregiver Resources on file so that family can begin to explore cost and how to navigate scheduling.
[2020-05-19 17:09] VITALS: BP 140/64
[2020-05-19] MEDS: TAMSULOSIN 0.4 MG (FLOMAX) CAP PO SCH (18:26)
[2020-05-19] MEDS: MELATONIN 3 MG TABLET PO PRN (21:50)
[2020-05-20] MEDS: RT-ALBUTEROL/IPRATROPIUM 3 ML (DUONEB) VIAL IH SCH ×3 (00:33→20:25)
[2020-05-20] MEDS: RT-BUDESONIDE NEBS 0.5 MG/2ML (PULMICORT) AMP IH SCH ×3 (00:33→20:25)
[2020-05-20 06:00] VITALS: BP 149/67
[2020-05-20] MEDS: BETHANECHOL 25 MG (URECHOLINE) TAB PO SCH ×4 (06:05→21:05)
[2020-05-20] MEDS: inSUlin ASPART (NovoLOG) 1 UNIT/0.01 ML (CHARGE PER UNIT) SC SCH ×2 (06:15→16:47)
[2020-05-20 08:00] VITALS: BP 141/73
[2020-05-20] MEDS: DOCUSATE SODIUM 100 MG (COLACE) CAP PO SCH ×2 (08:31→21:05)
[2020-05-20] MEDS: CARVEDILOL 3.125 MG (COREG) TABLET PO SCH ×2 (08:31→21:05)
[2020-05-20] MEDS: amLODIPine 5 MG (NORVASC) TAB PO SCH (08:31)
[2020-05-20] MEDS: FAMOTIDINE 20 MG (PEPCID) TABLET PO SCH (08:31)
[2020-05-20] MEDS: ASPIRIN 81 MG CHEW (CHILDREN'S ASA) PO SCH (08:31)
[2020-05-20] MEDS: SENNA W/DOCUSATE (SENOKOT S) TABLET PO SCH ×2 (08:31→21:05)
[2020-05-20] MEDS: CLOPIDOGREL 75 MG (PLAVIX) TABLET PO SCH (08:31)
[2020-05-20] MEDS: polyethylene glycoL POWDER 17 GM (MIRALAX) PACK PO SCH ×2 (08:32→19:58)
--- NOTE | 2020-05-20 09:39 | Progress Note - Urology ---
Progress Note-Urology Progress Notes/Assess & Plan Progress/Assessment & Plan STILL ON TOV Final Diagnosis RETENTION TANIA MENDEZ MD May 20, 2020 09:39
--- NOTE | 2020-05-20 10:22 | Occupational Ther Daily Note ---
OT Current Status-Daily Note Subjective Pt was in bed upon arrival. Pt no c/o pain. Pt agreed to therapy. Mental Status/Objective Patient Orientation: Person, Place, Time, Situation ADL-Treatment Pt lying supin to EOB. Pt transferred from EOB to shower chair Min A. Pt was propelled down to shower room by DURAND using shower chair. Pt don/doff UE with Mod A, needed help threading arms/head. DURAND hiked briefs over hips for pt. Pt performed upper/lower body washing mod A with verbal cues using shower chair with cut out. DURAND cleansed perineal, buttocks area. Pt transferred back to w/c from shower chair Min A. Pt performed LE dressing with Mod A, verbal cues to thread pants/socks on to feet. Pt was propelled back to room by DURAND. Pt performed oral care, brushing hair at sink with verbal cues. Therapy Code Descriptions/Definitions Functional [place] Measure: 0=Not Assessed/NA 4=Minimal Assistance 1=Total Assistance 5=Supervision or Setup 2=Maximal Assistance 6=Modified [place] 3=Moderate Assistance 7=Complete IndependenceSCALE: Activities may be completed with or without assistive devices. 3-Posqmdppam-ntytwfz completes the activity by him/herself with no assistance from a helper. 5-Set-up or Clean-up Assistance-helper sets up or cleans up; patient completes activity. [place] assists only prior to or following the activity. 4-Supervision or Touching Assistance-helper provides verbal cues and/or touching/steadying and/or contact guard assistance as patient completes activity. Assistance may be provided throughout the activity or intermittently. 3-Partial/Moderate Assistance-helper does LESS THAN HALF the effort. [place] lifts, holds or supports trunk or limbs, but provides less than half the effort. 2-Substantial/Maximal Assistance-helper does MORE THAN HALF the effort. [place] lifts or holds trunk or limbs and provides more than half the effort. 7-Wnbgrdvok-pvanlr does ALL the effort. Patient does none of the effort to complete the activity. Or, the assistance of 2 or more helpers is required for the patient to complete the activity. If activity was not attempted, code reason: 7-Patient Refused. 9-Not Applicable-not attempted and the patient did not perform the activity before the current illness, exacerbation or injury. 10-Not Attempted due to Environmental Limitations-(lack of equipment, weather restraints, etc.). 88-Not Attempted due to Medical Conditions or Safety Concerns. Oral Hygiene (QC): 5 Bathing Location: R Arm, L Upper Leg, R Upper Leg, Chest, Abdomen Shower/Bathe Self (QC): 3 Upper Body Dressing (QC): 3 Lower Body Dressing (QC): 3 On/Off Footwear: 3 Other Treatment Pt was propelled to therapy gym by LADARIUS. Pt performed peg board activity to work on sequencing,finger manipulation, UE strengthening, crossing midline for daily functional task. Pt completed 7/7 patterns by stacking same colored pegs on top of each other. Pt performed B UE movements completing 5 bicep curls using self- ROM. DURAND moving R arm for pt to complete 5 remaining bicep curls. Pt was propelled back to room by LADARIUS. Pt transferred to recliner from w/c Min A. Call light/phone in reach. All needs met. OT Short Term Goals Short Term Goals Time Frame: May 26, 2020 Eatin Oral hygiene: 3 Toileting hygiene: 3 Shower/bathe self: 3 Upper body dressin Lower body dressin Putting on/taking off footwear: 3 OT Assisted Goals Assisted Goals Time Frame: Jun 09, 2020 Eating (QC): 4 Oral Hygiene (QC): 4 Toileting Hygiene (QC): 3 Shower/Bathe Self (QC): 3 Upper Body Dressing (QC): 5 Lower Body Dressing (QC): 4 On/Off Footwear (QC): 4 Additional Goals: 1-Demonstrate ADL Tasks, 2-Verbalize Understanding, 3- ImproveStrength/Robbin 1=Demonstrate adherence to instructed precautions during ADL tasks. 2=Patient will verbalize/demonstrate understanding of assistive devices/modifications for ADL. 3=Patient will improve strength/tolerance for activity to enable patient to perform ADL's. OT Education/Plan Problem List/Assessment Assessment: Decreased Activ Tolerance, Decreased UE Strength, Impaired Cognition, Impaired Funct Balance, Impaired Self-Care Skills Visual perceptual issues difficult to pinpoint due to severe global aphasia. Discharge Recommendations Plan/Recommendations: Continue POC Treatment Plan/Plan of Care Patient would benefit from OT for education, treatment and training to promote independence in ADL's, mobility, safety and/or upper extremity function for ADL's. Plan of Care: ADL Retraining, Functional Mobility, Group Exercise/Act as Ind, UE Funct Exercise/Act Treatment Duration: Jun 09, 2020 Frequency: At least 5 of 7 days/Wk (IRF) Estimated Hrs Per Day: 1.5 hours per day Agreement: Yes Rehab Potential: Fair Time/GCodes Start Time: 09:00 Stop Time: 10:30 Total Time Billed (hr/min): 90 Billed Treatment Time 1 visit- ADL 4 (60 mins), FA 2 (30 mins) MARGOT WADDELL May 20, 2020 10:21
--- NOTE | 2020-05-20 10:30 | NUR ---
PT BLAYNE HIGHTOWER'D YESTERDAY AFTERNOON BY THIS RN. PER REPORT MILLER ROD MILL RN LAST BLADDER SCANNED AND STRAIGHT CATHED @ APPROX 0600. PT DENIES AT THIS TIME HAVING TO USE THE BATHROOM. BLADDER SCANNED AT THIS TIME AMOUNT SCANNED SHOWED 46CC.
--- NOTE | 2020-05-20 11:50 | NUR ---
PT SAT ON BEDSIDE COMMODE BUT ONLY HAD A SMALL BM, DID NOT VOID. BLADDER SCAN SHOWED 104CC AT THIS TIME. HAVE BEEN ENCOURAGING EXTRA FLUIDS THIS SHIFT.
--- NOTE | 2020-05-20 12:00 | Physical Therapy Daily Note ---
PT Daily Note-Current Subjective Pt. agrees to Rx , smiles and says"ok baby " repeatedly. Pain Location: No Pain Reported Mental Status Patient Orientation: Non-Verbal/Aphasic Attachments: Other-See Comments (mask, gait belt) Transfers SCALE: Activities may be completed with or without assistive devices. 1-Oapsetbuzd-rhispqf completes the activity by him/herself with no assistance from a helper. 5-Set-up or Clean-up Assistance-helper sets up or cleans up; patient completes activity. [place] assists only prior to or following the activity. 4-Supervision or Touching Assistance-helper provides verbal cues and/or touching/steadying and/or contact guard assistance as patient completes activity. Assistance may be provided throughout the activity or intermittently. 3-Partial/Moderate Assistance-helper does LESS THAN HALF the effort. [place] lifts, holds or supports trunk or limbs, but provides less than half the effort. 2-Substantial/Maximal Assistance-helper does MORE THAN HALF the effort. [place] lifts or holds trunk or limbs and provides more than half the effort. 3-Hpcshvliu-hyumiw does ALL the effort. Patient does none of the effort to complete the activity. Or, the assistance of 2 or more helpers is required for the patient to complete the activity. If activity was not attempted, code reason: 7-Patient Refused. 9-Not Applicable-not attempted and the patient did not perform the activity before the current illness, exacerbation or injury. 10-Not Attempted due to Environmental Limitations-(lack of equipment, weather restraints, etc.). 88-Not Attempted due to Medical Conditions or Safety Concerns. Roll Left & Right (QC): 4 Sit to Lying (QC): 4 Lying to Sitting/Side of Bed(Q: 4 (needs guided to roll and push efficiently) Sit to Stand (QC): 4 Chair/Nrn-bs-Bvmcy Xfer(QC): 4 TRFs SPT left and right much improved, better balance etc Weight Bearing Right Lower Extremity: Right Full Weight Bearing Left Lower Extremity: Left Full Weight Bearing Gait Training Does the Patient Walk?: Yes Walk 10 feet (QC): 4 Gait Persons Needed: 1 (plus w/c to f/u) Gait Assistive Device: Handheld Assist (HH right and rail in watt left) gait at rail 12 ft x 2, good wt shift and step length as well as advancing RLE Wheelchair Training Does the Pt Use a Wheelchair?: Yes Wheel 50 ft with 2 turns (QC): 3 Type of Wheelchair: Manual manages brake on R left side only Exercises Supine Ex: Bridging, Ankle pumps, Quad Set, Heel Slides, Straight leg raise, Hip abd/add Supine Reps: 12 NuStep Minutes: 8 NuStep Workload: 2 Assessment Current Status: Good Progress PT Short Term Goals Short Term Goals Time Frame: May 19, 2020 Roll Left & Right: 4 Sit to lyin Lying to sitting on side of be: 3 Chair/qoe-ne-eaiyq transfer: 3 Walk 10 feet: 3 Does pt use a wc or scooter: Yes Wheel 50ft w/2 turns: 3 Wheel 150 feet: 3 PT Resident Doctor Goals Group Home Goals PT Resident Doctor Goals Time Frame: Jun 02, 2020 Roll Left & Right (QC): 6 Sit to Lying (QC): 6 Lying-Sitting on Side/Bed(QC): 6 Sit to Stand (QC): 4 Chair/Phx-gp-Praht Xfer(QC): 4 Toilet Transfer (QC): 4 Car Transfer (QC): 4 Does the Patient Walk: Yes Walk 10 feet (QC): 3 Walk 50ft with 2 Turns (QC): 3 Walk 150 ft (QC): 88 Walking 10ft on Uneven Surface: 3 1 Step (curb) (QC): 3 4 Steps (QC): 88 12 Steps (QC): 88 Picking up an Object (QC): 88 Does the Pt use WC or Scooter?: Yes Wheel 50 feet with 2 turns (QC: 6 Wheel 150 feet: 6 PT Plan Treatment/Plan Treatment Plan: Continue Plan of Care Treatment Plan: Bed Mobility, Education, Functional Activity Robbin, Functional Strength, Group Therapy, Gait, Safety, Therapeutic Exercise, Transfers Treatment Duration: May 13, 2020 Frequency: At least 5 of 7 days/Wk (IRF) Estimated Hrs Per Day: 1.5 hours per day Patient and/or Family Agrees t: Yes Safety Risks/Education Patient Education: Gait Training, Transfer Techniques, Reviewed Use of Ice, W/C Management, Disease Process, Safety Issues Teaching Recipient: Patient Teaching Methods: Demonstration, Discussion Response to Teaching: Return Demonstration, Reinforcement Needed Time/GCodes Time In: 1100 Time Out: 1200 Total Billed Treatment Time: 60 Total Billed Treatment 1,GT15m,EX20m,FA25m JANA OROSCO SANDBLAST OPERATOR May 20, 2020 12:00
--- NOTE | 2020-05-20 12:26 | PM&R Progress Note ---
Subjective HPI/CC On Admission Date Seen by Provider: May 20, 2020 Time Seen by Provider: 12:30 Subjective/Events-last exam 05/20/20: Patient about the same Requires a feeder to eat No pain reported Confusion is a limitation 05/19/20: Pt has varying participation with PT and OT Accu cheks changed to BID Will monitor pt closely Denies any pain Is a feeder 05/18/20: Re inserted the james since urinary retention continued Increasing oral fluids Urecholine was increased dose barron Bowels are moving 05/17/20: Xanax given last night Bowels moved yesterday Refusing to eat supper or breakfast today Agitated a bit today Post-void residual had 238 Hadnt voided since discontinued the cath yesterday 05/16/20: Dr. Houston will discontinue the catheter and evaluate voiding trial today Flomax and Urecholine maintained Bowels are moving Very difficult to recover from catastrophic stroke 05/15/20: Patient participating with therapy No pain reported Dr Houston consulted for james catheter 05/14/20: Patient denies pain Working well with structured therapies James cath still in place will need to DC soon Working on BM regimen Patient doing well Settling in well No pain reported Working with PT OT and ST Eating a bit more without aspiration No falls Checked meds and labs Conferred with RN Reviewed therapy notes Review of Systems Neurological: Weakness, Incoordination, Confusion Objective Exam Vital Signs Vital Signs Date Time Temp Pulse Resp B/P (MAP) Pulse Ox O2 Delivery O2 Flow Rate FiO2 05/20/20 20:27 95 Room Air 05/20/20 17:09 36.0 82 18 130/62 (84) Capillary Refill : Less Than 3 Seconds General Appearance: No Apparent Distress, Anxious, Chronically ill, Thin HEENT: PERRL/EOMI, Normal ENT Inspection, Pharynx Normal Neck: Full Range of Motion, Normal Inspection, Non Tender, Supple, Carotid Bruit Respiratory: Chest Non Tender, Lungs Clear, No Accessory Muscle Use, No Respiratory Distress, Decreased Breath Sounds Cardiovascular: Regular Rate, Rhythm, No Edema, No Gallop, No JVD, No Murmur, Normal Peripheral Pulses Gastrointestinal: Normal Bowel Sounds, No Organomegaly, No Pulsatile Mass, Non Tender, Soft Back: Normal Inspection, No CVA Tenderness, No Vertebral Tenderness Extremity: Normal Capillary Refill, Normal Inspection, Normal Range of Motion (except right sided weakness), Non Tender, No Calf Tenderness, No Pedal Edema Neurologic/Psychiatric: Alert, No Motor/Sensory Deficits, Normal Mood/Affect, Abnormal psychiatry instructor II-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 FIM Transfers Therapy Code Descriptions/Definitions Functional [place] Measure: 0=Not Assessed/NA 4=Minimal Assistance 1=Total Assistance 5=Supervision or Setup 2=Maximal Assistance 6=Modified [place] 3=Moderate Assistance 7=Complete IndependenceSCALE: Activities may be completed with or without assistive devices. 5-Cklsxdyojz-vpjrcln completes the activity by him/herself with no assistance from a helper. 5-Set-up or Clean-up Assistance-helper sets up or cleans up; patient completes activity. [place] assists only prior to or following the activity. 4-Supervision or Touching Assistance-helper provides verbal cues and/or touching/steadying and/or contact guard assistance as patient completes activity. Assistance may be provided throughout the activity or intermittently. 3-Partial/Moderate Assistance-helper does LESS THAN HALF the effort. [place] lifts, holds or supports trunk or limbs, but provides less than half the effort. 2-Substantial/Maximal Assistance-helper does MORE THAN HALF the effort. [place] lifts or holds trunk or limbs and provides more than half the effort. 8-Oteazxuqr-ikunxg does ALL the effort. Patient does none of the effort to complete the activity. Or, the assistance of 2 or more helpers is required for the patient to complete the activity. If activity was not attempted, code reason: 7-Patient Refused. 9-Not Applicable-not attempted and the patient did not perform the activity before the current illness, exacerbation or injury. 10-Not Attempted due to Environmental Limitations-(lack of equipment, weather restraints, etc.). 88-Not Attempted due to Medical Conditions or Safety Concerns. Roll Left to Right (QC): 4 Sit to Lying (QC): 4 Sit to Stand (QC): 4 Chair/Jqd-dx-Nszhi Xfer(QC): 4 Car Transfer (QC): 3 Gait Training Does the Patient Walk?: Yes Walk 10 feet (QC): 4 Walk 50 ft with 2 Turns(QC): 88 Walk 150 ft (QC): 88 Walking 10ft/uneven surface-QC: 88 Gait Persons Needed: 1 (plus w/c to f/u) Gait Assistive Device: Handheld Assist (HH right and rail in watt left) Wheelchair Training Does the Pt Use a Wheelchair?: Yes Distance: 150'x3 Wheel 50 ft with 2 turns (QC): 3 Wheel 150 ft (QC): 2 Type of Wheelchair: Manual Stair Training 1 Step (curb) (QC): 88 4 Steps (QC): 88 12 Steps (QC): 88 Balance Picking up an Object (QC): 88 ADL-Treatment Eating (QC): 2 (Max assist to initiate holding spoon, and then able to only hold briefly without OT putting it back in hand. TANANA assist to bring spoon to mouth. Pt. unable to hold the dish in other hand. Pt. used left hand to feed.) Oral Hygiene (QC): 5 Bathing Location: R Arm, L Upper Leg, R Upper Leg, Chest, Abdomen Shower/Bathe Self (QC): 3 Upper Body Dressing (QC): 3 Lower Body Dressing (QC): 3 On/Off Footwear (QC): 3 Toileting Hygiene (QC): 1 (Pt. 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 Ensure adequate anticoagulation 2. PT, OT, and SERVICE CENTER TECHNICIAN eval's and treat 3. Oxygen via NC- wean as tolerated 4. Resume Home medications 5. Fall precautions 6. Dietary consult 7. DVT prophylaxis 05/13/20: Patient participating well No pain reported Continue current meds Advance diet 05/14/20: James DC soon Continue home meds Therapies to continue protocol 05/15/20: Dr Houston appreciated Monitor BP Monitor labs 05/16/20: Bladder meds Appreciate Dr Houston PT OT ST 05/17/20: Voiding trial Monitor closely Variable moods 05/18/20: Monitor BP Encourage PO intake James cath management 05/19/20: Encourage participation with therapies Monitor james cath 05/20/20: Monitor closely Bladder management (1) CVA (cerebral vascular accident) (2) Dysarthria (3) Dysphagia (4) PEG (percutaneous endoscopic gastrostomy) status (5) Expressive aphasia (6) Smoker (7) COPD (chronic obstructive pulmonary disease) (8) CAD (coronary artery disease) (9) Hx of CABG (10) James catheter in place (11) Retention of urine BECKI WAGNER DO May 20, 2020 12:26
--- NOTE | 2020-05-20 14:39 | Physical Therapy Daily Note ---
PT Daily Note-Current Subjective Pt. in bed , expresses she is so tired, but agrees to exercise and TRFs Pain Location: No Pain Reported Mental Status Patient Orientation: Non-Verbal/Aphasic Transfers SCALE: Activities may be completed with or without assistive devices. 2-Ctjuydwjkm-txozrmq completes the activity by him/herself with no assistance from a helper. 5-Set-up or Clean-up Assistance-helper sets up or cleans up; patient completes activity. [place] assists only prior to or following the activity. 4-Supervision or Touching Assistance-helper provides verbal cues and/or touching/steadying and/or contact guard assistance as patient completes activity. Assistance may be provided throughout the activity or intermittently. 3-Partial/Moderate Assistance-helper does LESS THAN HALF the effort. [place] lifts, holds or supports trunk or limbs, but provides less than half the effort. 2-Substantial/Maximal Assistance-helper does MORE THAN HALF the effort. [place] lifts or holds trunk or limbs and provides more than half the effort. 4-Dqkggpbsi-cwsmvq does ALL the effort. Patient does none of the effort to comp lete the activity. Or, the assistance of 2 or more helpers is required for the patient to complete the activity. If activity was not attempted, code reason: 7-Patient Refused. 9-Not Applicable-not attempted and the patient did not perform the activity before the current illness, exacerbation or injury. 10-Not Attempted due to Environmental Limitations-(lack of equipment, weather restraints, etc.). 88-Not Attempted due to Medical Conditions or Safety Concerns. rolling left to right and sup to sit to sup CGA to SBA Weight Bearing Right Lower Extremity: Right Full Weight Bearing Left Lower Extremity: Left Full Weight Bearing Exercises Supine Ex: Bridging, Ankle pumps, Quad Set, Rolling, Glut sets, Heel Slides, Short Arc Quads, Scooting (up in bed), Straight leg raise, Hip abd/add Supine Reps: 15 Treatments struggling with SLRs on right but did indep Assessment Current Status: Good Progress gives full effort PT Short Term Goals Short Term Goals Time Frame: May 19, 2020 Roll Left & Right: 4 Sit to lyin Lying to sitting on side of be: 3 Chair/lum-lb-kyuby transfer: 3 Walk 10 feet: 3 Does pt use a wc or scooter: Yes Wheel 50ft w/2 turns: 3 Wheel 150 feet: 3 PT Electric Motor Repairman Goals Electric Motor Repairman Goals PT Intermediate Goals Time Frame: Jun 02, 2020 Roll Left & Right (QC): 6 Sit to Lying (QC): 6 Lying-Sitting on Side/Bed(QC): 6 Sit to Stand (QC): 4 Chair/Vwt-xu-Gymlt Xfer(QC): 4 Toilet Transfer (QC): 4 Car Transfer (QC): 4 Does the Patient Walk: Yes Walk 10 feet (QC): 3 Walk 50ft with 2 Turns (QC): 3 Walk 150 ft (QC): 88 Walking 10ft on Uneven Surface: 3 1 Step (curb) (QC): 3 4 Steps (QC): 88 12 Steps (QC): 88 Picking up an Object (QC): 88 Does the Pt use WC or Scooter?: Yes Wheel 50 feet with 2 turns (QC: 6 Wheel 150 feet: 6 PT Plan Treatment/Plan Treatment Plan: Continue Plan of Care Treatment Plan: Bed Mobility, Education, Functional Activity Robbin, Functional Strength, Group Therapy, Gait, Safety, Therapeutic Exercise, Transfers Treatment Duration: May 13, 2020 Frequency: At least 5 of 7 days/Wk (IRF) Estimated Hrs Per Day: 1.5 hours per day Patient and/or Family Agrees t: Yes Safety Risks/Education Patient Education: Transfer Techniques Time/GCodes Time In: 1410 Time Out: 1440 Total Billed Treatment Time: 30 Total Billed Treatment 1,EX30m JANA OROSCO CLAY PROCESSING LABOURER May 20, 2020 14:39
--- NOTE | 2020-05-20 15:14 | NUR ---
"RD ASSESSMENT PMHx: CAD; DM; COPD; dysphagia; PT INTERACTION: Pt was awake and pleasant during nutrition follow-up. Pt states she has been eating well since last assessment. Note avg PO intake 46% x4d, per chart review. Note pt currently on CHO 60g/m 3snack diet, with modifier of DYS2 Mechanically Altered consistency, per chart review. Note pt also has a feeder to assist with eating. Pt states no issues with nausea, vomiting, constipation, or diarrhea since last assessment. Note last BM was 05/20 and pt currently on bowel regimen of colace BID, senna BID, and miralax BID, per chart review. ABNORMAL NUTRITION-RELATED LAB VALUES LOW: HIGH: glu 147 Est. kcal needs: 5047-5328 kcal | 25-30 kcal/kg Est. Pro needs: 53-64 g Pro | 0.8-1.0 g Pro/kg PES STATEMENT: Inadequate oral intake (NI-2.1) related to loss of appetite as evidenced by pt interview, and avg PO intake 46% x4d. INTERVENTION: Continue with current diet order of CHO 60g/m 3snack diet, with modifier of DYS2 Mechanically Altered consistency. Continue to have feeder assist pt with eating. Continue with current supplementation order of Glucerna (vary) with meals TID, for increased kcal intake. Provides 220 kcal and 10 g Pro per serving. Will continue to follow and reassess as pt needs, intake, and status change. Mukesh Ontiveros, MS RD LD"
[2020-05-20 17:09] VITALS: BP 130/62
[2020-05-20] MEDS: TAMSULOSIN 0.4 MG (FLOMAX) CAP PO SCH (18:59)
[2020-05-20] MEDS: ALPRAZolam 0.25 MG (XANAX) TAB PO PRN (19:03)
[2020-05-20] MEDS: MELATONIN 3 MG TABLET PO PRN (21:05)
[2020-05-21] MEDS: inSUlin ASPART (NovoLOG) 1 UNIT/0.01 ML (CHARGE PER UNIT) SC SCH ×2 (05:58→16:33)
[2020-05-21] MEDS: BETHANECHOL 25 MG (URECHOLINE) TAB PO SCH ×4 (06:02→19:48)
[2020-05-21 06:16] VITALS: BP 117/52
--- NOTE | 2020-05-21 07:01 | PM&R Progress Note ---
Subjective HPI/CC On Admission Date Seen by Provider: May 21, 2020 Time Seen by Provider: 12:30 Subjective/Events-last exam 05/21/20: Likely will need catheter replaced No pain reported Feeder maintained adequate consumption 05/20/20: Patient about the same Requires a feeder to eat No pain reported Confusion is a limitation 05/19/20: Pt has varying participation with PT and OT Accu cheks changed to BID Will monitor pt closely Denies any pain Is a feeder 05/18/20: Re inserted the james since urinary retention continued Increasing oral fluids Urecholine was increased dose barron Bowels are moving 05/17/20: Xanax given last night Bowels moved yesterday Refusing to eat supper or breakfast today Agitated a bit today Post-void residual had 238 Hadnt voided since discontinued the cath yesterday 05/16/20: Dr. Houston will discontinue the catheter and evaluate voiding trial today Flomax and Urecholine maintained Bowels are moving Very difficult to recover from catastrophic stroke 05/15/20: Patient participating with therapy No pain reported Dr Houston consulted for james catheter 05/14/20: Patient denies pain Working well with structured therapies James cath still in place will need to DC soon Working on BM regimen Patient doing well Settling in well No pain reported Working with PT OT and ST Eating a bit more without aspiration No falls Checked meds and labs Conferred with RN Reviewed therapy notes Review of Systems General: Fatigue, Malaise Objective Exam Vital Signs Vital Signs Date Time Temp Pulse Resp B/P (MAP) Pulse Ox O2 Delivery O2 Flow Rate FiO2 05/21/20 17:53 36.7 91 20 124/63 (83) 98 Room Air Capillary Refill : Less Than 3 Seconds General Appearance: No Apparent Distress, Anxious, Chronically ill, Thin HEENT: PERRL/EOMI, Normal ENT Inspection, Pharynx Normal Neck: Full Range of Motion, Normal Inspection, Non Tender, Supple, Carotid Bruit Respiratory: Chest Non Tender, Lungs Clear, No Accessory Muscle Use, No Respiratory Distress, Decreased Breath Sounds Cardiovascular: Regular Rate, Rhythm, No Edema, No Gallop, No JVD, No Murmur, Normal Peripheral Pulses Gastrointestinal: Normal Bowel Sounds, No Organomegaly, No Pulsatile Mass, Non Tender, Soft Back: Normal Inspection, No CVA Tenderness, No Vertebral Tenderness Extremity: Normal Capillary Refill, Normal Inspection, Normal Range of Motion (except right sided weakness), Non Tender, No Calf Tenderness, No Pedal Edema Neurologic/Psychiatric: Alert, No Motor/Sensory Deficits, Normal Mood/Affect, 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 FIM Transfers Therapy Code Descriptions/Definitions Functional [place] Measure: 0=Not Assessed/NA 4=Minimal Assistance 1=Total Assistance 5=Supervision or Setup 2=Maximal Assistance 6=Modified [place] 3=Moderate Assistance 7=Complete IndependenceSCALE: Activities may be completed with or without assistive devices. 7-Kyinhwngud-ilyrzez completes the activity by him/herself with no assistance from a helper. 5-Set-up or Clean-up Assistance-helper sets up or cleans up; patient completes activity. [place] assists only prior to or following the activity. 4-Supervision or Touching Assistance-helper provides verbal cues and/or touching/steadying and/or contact guard assistance as patient completes activity. Assistance may be provided throughout the activity or intermittently. 3-Partial/Moderate Assistance-helper does LESS THAN HALF the effort. [place] lifts, holds or supports trunk or limbs, but provides less than half the effort. 2-Substantial/Maximal Assistance-helper does MORE THAN HALF the effort. [place] lifts or holds trunk or limbs and provides more than half the effort. 2-Vplnmfjvp-yykfkw does ALL the effort. Patient does none of the effort to comp lete the activity. Or, the assistance of 2 or more helpers is required for the patient to complete the activity. If activity was not attempted, code reason: 7-Patient Refused. 9-Not Applicable-not attempted and the patient did not perform the activity before the current illness, exacerbation or injury. 10-Not Attempted due to Environmental Limitations-(lack of equipment, weather restraints, etc.). 88-Not Attempted due to Medical Conditions or Safety Concerns. Roll Left to Right (QC): 4 Sit to Lying (QC): 4 Sit to Stand (QC): 4 Chair/Dif-ql-Xmioe Xfer(QC): 4 Car Transfer (QC): 3 Gait Training Does the Patient Walk?: Yes Walk 10 feet (QC): 4 Walk 50 ft with 2 Turns(QC): 88 Walk 150 ft (QC): 88 Walking 10ft/uneven surface-QC: 88 Gait Persons Needed: 1 (plus w/c to f/u) Gait Assistive Device: Handheld Assist (HH right and rail in watt left) Wheelchair Training Does the Pt Use a Wheelchair?: Yes Distance: 150'x3 Wheel 50 ft with 2 turns (QC): 3 Wheel 150 ft (QC): 2 Type of Wheelchair: Manual Stair Training 1 Step (curb) (QC): 88 4 Steps (QC): 88 12 Steps (QC): 88 Balance Picking up an Object (QC): 88 ADL-Treatment Eating (QC): 2 (Max assist to initiate holding spoon, and then able to only hold briefly without OT putting it back in hand. [place] assist to bring spoon to mouth. Pt. unable to hold the dish in other hand. Pt. used left hand to feed.) Oral Hygiene (QC): 5 Bathing Location: R Arm, L Upper Leg, R Upper Leg, Chest, Abdomen Shower/Bathe Self (QC): 3 Upper Body Dressing (QC): 3 Lower Body Dressing (QC): 3 On/Off Footwear (QC): 3 Toileting Hygiene (QC): 1 (Pt. 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 Ensure adequate anticoagulation 2. PT, OT, and PROGRESS CLERK eval's and treat 3. Oxygen via NC- wean as tolerated 4. Resume Home medications 5. Fall precautions 6. Dietary consult 7. DVT prophylaxis 05/13/20: Patient participating well No pain reported Continue current meds Advance diet 05/14/20: James DC soon Continue home meds Therapies to continue protocol 05/15/20: Dr Houston appreciated Monitor BP Monitor labs 05/16/20: Bladder meds Appreciate Dr Houston PT OT ST 05/17/20: Voiding trial Monitor closely Variable moods 05/18/20: Monitor BP Encourage PO intake James cath management 05/19/20: Encourage participation with therapies Monitor james cath 05/20/20: Monitor closely Bladder management 05/21/20: Monitor closely Cath maintained? (1) CVA (cerebral vascular accident) (2) Dysarthria (3) Dysphagia (4) PEG (percutaneous endoscopic gastrostomy) status (5) Expressive aphasia (6) Smoker (7) COPD (chronic obstructive pulmonary disease) (8) CAD (coronary artery disease) (9) Hx of CABG (10) James catheter in place (11) Retention of urine BECKI WAGNER DO May 21, 2020 07:01
[2020-05-21] MEDS: amLODIPine 5 MG (NORVASC) TAB PO SCH (08:54)
[2020-05-21] MEDS: ASPIRIN 81 MG CHEW (CHILDREN'S ASA) PO SCH (08:54)
[2020-05-21] MEDS: CARVEDILOL 3.125 MG (COREG) TABLET PO SCH ×2 (08:54→19:47)
[2020-05-21] MEDS: FAMOTIDINE 20 MG (PEPCID) TABLET PO SCH (08:54)
[2020-05-21] MEDS: DOCUSATE SODIUM 100 MG (COLACE) CAP PO SCH ×2 (08:54→19:48)
[2020-05-21] MEDS: SENNA W/DOCUSATE (SENOKOT S) TABLET PO SCH ×2 (08:54→19:47)
[2020-05-21] MEDS: CLOPIDOGREL 75 MG (PLAVIX) TABLET PO SCH (08:55)
[2020-05-21 08:58] VITALS: BP 119/70
[2020-05-21] MEDS: polyethylene glycoL POWDER 17 GM (MIRALAX) PACK PO SCH ×2 (09:59→19:59)
--- NOTE | 2020-05-21 11:00 | Physical Therapy Daily Note ---
PT Daily Note-Current Subjective Pt in bed upon arrival; pt agrees to PT tx. Pain Numeric Pain Scale: 0-No Pain Location: No Pain Reported Mental Status Patient Orientation: Unable to Assess, Non-Verbal/Aphasic Transfers SCALE: Activities may be completed with or without assistive devices. 9-Xejdhoptkw-mqxxdjr completes the activity by him/herself with no assistance from a helper. 5-Set-up or Clean-up Assistance-helper sets up or cleans up; patient completes activity. [place] assists only prior to or following the activity. 4-Supervision or Touching Assistance-helper provides verbal cues and/or touching/steadying and/or contact guard assistance as patient completes activity. Assistance may be provided throughout the activity or intermittently. 3-Partial/Moderate Assistance-helper does LESS THAN HALF the effort. [place] lifts, holds or supports trunk or limbs, but provides less than half the effort. 2-Substantial/Maximal Assistance-helper does MORE THAN HALF the effort. [place] lifts or holds trunk or limbs and provides more than half the effort. 0-Frcqouiim-cusptf does ALL the effort. Patient does none of the effort to complete the activity. Or, the assistance of 2 or more helpers is required for the patient to complete the activity. If activity was not attempted, code reason: 7-Patient Refused. 9-Not Applicable-not attempted and the patient did not perform the activity before the current illness, exacerbation or injury. 10-Not Attempted due to Environmental Limitations-(lack of equipment, weather restraints, etc.). 88-Not Attempted due to Medical Conditions or Safety Concerns. Roll Left & Right (QC): 2 Weight Bearing Right Lower Extremity: Right Full Weight Bearing Left Lower Extremity: Left Full Weight Bearing Exercises Supine Ex: Ankle pumps, Heel Slides, Short Arc Quads, Straight leg raise, Hip abd/add Supine Reps: 15 (reps each) Treatments Supine PROM ex completed in bed. Pt given VC's to complete ex, but is unable to follow VC's. DIETARY SERVICE AIDE and RN pulled pt up in bed to better position pt; pt did not attempt to assist. Pt remains in bed w/ bedside table and call light w/in reach and all needs met, at end of tx. Assessment Current Status: Poor Progress Pt moaned constantly throughout PT tx. Pt constantly asked if in pain; pt did not respond. PT Short Term Goals Short Term Goals Time Frame: May 19, 2020 Roll Left & Right: 4 Sit to lyin Lying to sitting on side of be: 3 Chair/jzc-qg-gkvjg transfer: 3 Walk 10 feet: 3 Does pt use a wc or scooter: Yes Wheel 50ft w/2 turns: 3 Wheel 150 feet: 3 PT Longterm Goals Cork Slabs Sawyer Goals PT Longterm Goals Time Frame: Jun 02, 2020 Roll Left & Right (QC): 6 Sit to Lying (QC): 6 Lying-Sitting on Side/Bed(QC): 6 Sit to Stand (QC): 4 Chair/Hmd-bn-Uiroz Xfer(QC): 4 Toilet Transfer (QC): 4 Car Transfer (QC): 4 Does the Patient Walk: Yes Walk 10 feet (QC): 3 Walk 50ft with 2 Turns (QC): 3 Walk 150 ft (QC): 88 Walking 10ft on Uneven Surface: 3 1 Step (curb) (QC): 3 4 Steps (QC): 88 12 Steps (QC): 88 Picking up an Object (QC): 88 Does the Pt use WC or Scooter?: Yes Wheel 50 feet with 2 turns (QC: 6 Wheel 150 feet: 6 PT Plan Problem List Problem List: Activity Tolerance, Functional Strength, Safety, Bed Mobility, ROM Treatment/Plan Treatment Plan: Continue Plan of Care Treatment Plan: Bed Mobility, Education, Functional Activity Robbin, Functional Strength, Group Therapy, Gait, Safety, Therapeutic Exercise, Transfers Treatment Duration: May 13, 2020 Frequency: At least 5 of 7 days/Wk (IRF) Estimated Hrs Per Day: 1.5 hours per day Patient and/or Family Agrees t: Yes Safety Risks/Education Patient Education: Correct Positioning, Safety Issues Teaching Recipient: Patient Teaching Methods: Discussion Response to Teaching: Unable to Return Demonstration, Unable to Comprehend Time/GCodes Time In: 900 Time Out: 915 Total Billed Treatment Time: 15 Total Billed Treatment 1, Ex (15m) POLLY SHIPLEY DIETARY SERVICE AIDE May 21, 2020 11:00
[2020-05-21] MEDS: RT-BUDESONIDE NEBS 0.5 MG/2ML (PULMICORT) AMP IH SCH ×2 (11:02→21:43)
[2020-05-21] MEDS: RT-ALBUTEROL/IPRATROPIUM 3 ML (DUONEB) VIAL IH SCH ×2 (11:02→21:43)
--- NOTE | 2020-05-21 14:42 | NUR ---
UNABLE TO VOID. BLADDER SCAN SHOWING 383MLS. CISNEROS CATHETER PUT BACK IN AND URECHOLINE INCREASED TO 50 MG PER ORDERS. CLOUDY, YELLOW URINE IMMEDIATE RETURN. PATIENT TOLERATED WELL.
[2020-05-21] MEDS: TAMSULOSIN 0.4 MG (FLOMAX) CAP PO SCH (17:25)
[2020-05-21 17:53] VITALS: BP 124/63
[2020-05-21] MEDS: ALPRAZolam 0.25 MG (XANAX) TAB PO PRN (19:47)
[2020-05-21] MEDS: MELATONIN 3 MG TABLET PO PRN (19:48)
[2020-05-22 05:14] VITALS: BP 133/60
[2020-05-22] MEDS: BETHANECHOL 25 MG (URECHOLINE) TAB PO SCH ×4 (06:28→19:46)
[2020-05-22] MEDS: inSUlin ASPART (NovoLOG) 1 UNIT/0.01 ML (CHARGE PER UNIT) SC SCH ×2 (06:28→16:11)
[2020-05-22] MEDS: polyethylene glycoL POWDER 17 GM (MIRALAX) PACK PO SCH ×2 (08:45→21:00)
[2020-05-22] MEDS: amLODIPine 5 MG (NORVASC) TAB PO SCH (08:46)
[2020-05-22] MEDS: CLOPIDOGREL 75 MG (PLAVIX) TABLET PO SCH (08:46)
[2020-05-22] MEDS: SENNA W/DOCUSATE (SENOKOT S) TABLET PO SCH ×2 (08:46→19:45)
[2020-05-22] MEDS: FAMOTIDINE 20 MG (PEPCID) TABLET PO SCH (08:46)
[2020-05-22] MEDS: ASPIRIN 81 MG CHEW (CHILDREN'S ASA) PO SCH (08:46)
[2020-05-22] MEDS: CARVEDILOL 3.125 MG (COREG) TABLET PO SCH ×2 (08:46→19:45)
[2020-05-22] MEDS: DOCUSATE SODIUM 100 MG (COLACE) CAP PO SCH ×2 (08:46→19:46)
[2020-05-22 08:50] VITALS: BP 127/60
--- NOTE | 2020-05-22 11:26 | PM&R Progress Note ---
Subjective HPI/CC On Admission Date Seen by Provider: May 22, 2020 Time Seen by Provider: 14:00 Subjective/Events-last exam 05/22/20: James cath still in place Urecholine 50mg dose now BM today 05/21/20: Likely will need catheter replaced No pain reported Feeder maintained adequate consumption 05/20/20: Patient about the same Requires a feeder to eat No pain reported Confusion is a limitation 05/19/20: Pt has varying participation with PT and OT Accu cheks changed to BID Will monitor pt closely Denies any pain Is a feeder 05/18/20: Re inserted the james since urinary retention continued Increasing oral fluids Urecholine was increased dose barron Bowels are moving 05/17/20: Xanax given last night Bowels moved yesterday Refusing to eat supper or breakfast today Agitated a bit today Post-void residual had 238 Hadnt voided since discontinued the cath yesterday 05/16/20: Dr. Houston will discontinue the catheter and evaluate voiding trial today Flomax and Urecholine maintained Bowels are moving Very difficult to recover from catastrophic stroke 05/15/20: Patient participating with therapy No pain reported Dr Houston consulted for james catheter 05/14/20: Patient denies pain Working well with structured therapies James cath still in place will need to DC soon Working on BM regimen Patient doing well Settling in well No pain reported Working with PT OT and ST Eating a bit more without aspiration No falls Checked meds and labs Conferred with RN Reviewed therapy notes Review of Systems General: Fatigue Neurological: Weakness, Incoordination, Confusion Objective Exam Vital Signs Vital Signs Date Time Temp Pulse Resp B/P (MAP) Pulse Ox O2 Delivery O2 Flow Rate FiO2 05/22/20 16:04 36.4 76 18 136/72 (93) 99 Room Air Capillary Refill : Less Than 3 Seconds General Appearance: No Apparent Distress, Anxious, Chronically ill, Thin HEENT: PERRL/EOMI, Normal ENT Inspection, Pharynx Normal Neck: Full Range of Motion, Normal Inspection, Non Tender, Supple, Carotid Bruit Respiratory: Chest Non Tender, Lungs Clear, No Accessory Muscle Use, No Respiratory Distress, Decreased Breath Sounds Cardiovascular: Regular Rate, Rhythm, No Edema, No Gallop, No JVD, No Murmur, Normal Peripheral Pulses Gastrointestinal: Normal Bowel Sounds, No Organomegaly, No Pulsatile Mass, Non Tender, Soft Back: Normal Inspection, No CVA Tenderness, No Vertebral Tenderness Extremity: Normal Capillary Refill, Normal Inspection, Normal Range of Motion (except right sided weakness), Non Tender, No Calf Tenderness, No Pedal Edema Neurologic/Psychiatric: Alert, No Motor/Sensory Deficits, Normal Mood/Affect, Abnormal acid etch operator II-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 FIM Transfers Therapy Code Descriptions/Definitions Functional [place] Measure: 0=Not Assessed/NA 4=Minimal Assistance 1=Total Assistance 5=Supervision or Setup 2=Maximal Assistance 6=Modified [place] 3=Moderate Assistance 7=Complete IndependenceSCALE: Activities may be completed with or without assistive devices. 0-Tzgwhyuupz-fojjmtr completes the activity by him/herself with no assistance from a helper. 5-Set-up or Clean-up Assistance-helper sets up or cleans up; patient completes activity. [place] assists only prior to or following the activity. 4-Supervision or Touching Assistance-helper provides verbal cues and/or touching/steadying and/or contact guard assistance as patient completes activity. Assistance may be provided throughout the activity or intermittently. 3-Partial/Moderate Assistance-helper does LESS THAN HALF the effort. [place] lifts, holds or supports trunk or limbs, but provides less than half the effort. 2-Substantial/Maximal Assistance-helper does MORE THAN HALF the effort. [place] lifts or holds trunk or limbs and provides more than half the effort. 0-Dhvvlxvfb-bnvunw does ALL the effort. Patient does none of the effort to complete the activity. Or, the assistance of 2 or more helpers is required for the patient to complete the activity. If activity was not attempted, code reason: 7-Patient Refused. 9-Not Applicable-not attempted and the patient did not perform the activity before the current illness, exacerbation or injury. 10-Not Attempted due to Environmental Limitations-(lack of equipment, weather restraints, etc.). 88-Not Attempted due to Medical Conditions or Safety Concerns. Roll Left to Right (QC): 2 Sit to Lying (QC): 4 Sit to Stand (QC): 4 Chair/Jrm-fh-Auiau Xfer(QC): 4 Car Transfer (QC): 3 Gait Training Does the Patient Walk?: Yes Walk 10 feet (QC): 4 Walk 50 ft with 2 Turns(QC): 88 Walk 150 ft (QC): 88 Walking 10ft/uneven surface-QC: 88 Gait Persons Needed: 1 (plus w/c to f/u) Gait Assistive Device: Handheld Assist (HH right and rail in watt left) Wheelchair Training Does the Pt Use a Wheelchair?: Yes Distance: 150'x3 Wheel 50 ft with 2 turns (QC): 3 Wheel 150 ft (QC): 2 Type of Wheelchair: Manual Stair Training 1 Step (curb) (QC): 88 4 Steps (QC): 88 12 Steps (QC): 88 Balance Picking up an Object (QC): 88 ADL-Treatment Eating (QC): 2 (Max assist to initiate holding spoon, and then able to only hold briefly without OT putting it back in hand. [place] assist to bring spoon to mouth. Pt. unable to hold the dish in other hand. Pt. used left hand to feed.) Oral Hygiene (QC): 5 Bathing Location: R Arm, L Upper Leg, R Upper Leg, Chest, Abdomen Shower/Bathe Self (QC): 3 Upper Body Dressing (QC): 3 Lower Body Dressing (QC): 3 On/Off Footwear (QC): 3 Toileting Hygiene (QC): 1 (Pt. 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 Ensure adequate anticoagulation 2. PT, OT, and C[employer]UR[employer] TECHNICAL LEAD SENIOR DEVELOPER eval's and treat 3. Oxygen via NC- wean as tolerated 4. Resume Home medications 5. Fall precautions 6. Dietary consult 7. DVT prophylaxis 05/13/20: Patient participating well No pain reported Continue current meds Advance diet 05/14/20: James DC soon Continue home meds Therapies to continue protocol 05/15/20: Dr Houston appreciated Monitor BP Monitor labs 05/16/20: Bladder meds Appreciate Dr Houston PT OT ST 05/17/20: Voiding trial Monitor closely Variable moods 05/18/20: Monitor BP Encourage PO intake James cath management 05/19/20: Encourage participation with therapies Monitor james cath 05/20/20: Monitor closely Bladder management 05/21/20: Monitor closely Cath maintained? 05/22/20: Cath in place Check labs in am Increased dose of Urecholine (1) CVA (cerebral vascular accident) (2) Dysarthria (3) Dysphagia (4) PEG (percutaneous endoscopic gastrostomy) status (5) Expressive aphasia (6) Smoker (7) COPD (chronic obstructive pulmonary disease) (8) CAD (coronary artery disease) (9) Hx of CABG (10) James catheter in place (11) Retention of urine BECKI WAGNER DO May 22, 2020 11:26
[2020-05-22 16:04] VITALS: BP 136/72
[2020-05-22] MEDS: TAMSULOSIN 0.4 MG (FLOMAX) CAP PO SCH (17:07)
[2020-05-22] MEDS: ALPRAZolam 0.25 MG (XANAX) TAB PO PRN (19:45)
[2020-05-22] MEDS: MELATONIN 3 MG TABLET PO PRN (19:45)
[2020-05-23 05:15] VITALS: BP 123/68
--- NOTE | 2020-05-23 05:45 | PM&R Progress Note ---
Subjective HPI/CC On Admission Date Seen by Provider: May 23, 2020 Time Seen by Provider: 09:00 Subjective/Events-last exam 05/23/20: Pt still doing pretty well Participation in therapy varies Cognition is an issue Overall doing well enough to remain stable 05/22/20: James cath still in place Urecholine 50mg dose now BM today 05/21/20: Likely will need catheter replaced No pain reported Feeder maintained adequate consumption 05/20/20: Patient about the same Requires a feeder to eat No pain reported Confusion is a limitation 05/19/20: Pt has varying participation with PT and OT Accu cheks changed to BID Will monitor pt closely Denies any pain Is a feeder 05/18/20: Re inserted the james since urinary retention continued Increasing oral fluids Urecholine was increased dose barron Bowels are moving 05/17/20: Xanax given last night Bowels moved yesterday Refusing to eat supper or breakfast today Agitated a bit today Post-void residual had 238 Hadnt voided since discontinued the cath yesterday 05/16/20: Dr. Houston will discontinue the catheter and evaluate voiding trial today Flomax and Urecholine maintained Bowels are moving Very difficult to recover from catastrophic stroke 05/15/20: Patient participating with therapy No pain reported Dr Houston consulted for james catheter 05/14/20: Patient denies pain Working well with structured therapies James cath still in place will need to DC soon Working on BM regimen Patient doing well Settling in well No pain reported Working with PT OT and ST Eating a bit more without aspiration No falls Checked meds and labs Conferred with RN Reviewed therapy notes Review of Systems General: Fatigue, Malaise Neurological: Weakness, Incoordination, Confusion Objective Exam Vital Signs Vital Signs Date Time Temp Pulse Resp B/P (MAP) Pulse Ox O2 Delivery O2 Flow Rate FiO2 05/23/20 21:26 Room Air 05/23/20 20:27 79 139/67 (91) 05/23/20 18:40 36.3 18 97 Capillary Refill : Less Than 3 Seconds General Appearance: No Apparent Distress, Anxious, Chronically ill, Thin HEENT: PERRL/EOMI, Normal ENT Inspection, Pharynx Normal Neck: Full Range of Motion, Normal Inspection, Non Tender, Supple, Carotid Bruit Respiratory: Chest Non Tender, Lungs Clear, No Accessory Muscle Use, No Respiratory Distress, Decreased Breath Sounds Cardiovascular: Regular Rate, Rhythm, No Edema, No Gallop, No JVD, No Murmur, Normal Peripheral Pulses Gastrointestinal: Normal Bowel Sounds, No Organomegaly, No Pulsatile Mass, Non Tender, Soft Back: Normal Inspection, No CVA Tenderness, No Vertebral Tenderness Extremity: Normal Capillary Refill, Normal Inspection, Normal Range of Motion (except right sided weakness), Non Tender, No Calf Tenderness, No Pedal Edema Neurologic/Psychiatric: Alert, No Motor/Sensory Deficits, Normal Mood/Affect, Abnormal toe puller II-XII, Aphasia, Facial Droop, Motor Weakness (right sided flaccidity) Skin: Normal Color, Warm/Dry Lymphatic: No Adenopathy Results/Procedures Lab Laboratory Tests 05/23/20 05:48 Patient resulted labs reviewed. FIM Transfers Therapy Code Descriptions/Definitions Functional [place] Measure: 0=Not Assessed/NA 4=Minimal Assistance 1=Total Assistance 5=Supervision or Setup 2=Maximal Assistance 6=Modified [place] 3=Moderate Assistance 7=Complete IndependenceSCALE: Activities may be completed with or without assistive devices. 1-Yehbcfvbzs-jiirlra completes the activity by him/herself with no assistance from a helper. 5-Set-up or Clean-up Assistance-helper sets up or cleans up; patient completes activity. [place] assists only prior to or following the activity. 4-Supervision or Touching Assistance-helper provides verbal cues and/or touching/steadying and/or contact guard assistance as patient completes activity. Assistance may be provided throughout the activity or intermittently. 3-Partial/Moderate Assistance-helper does LESS THAN HALF the effort. [place] lifts, holds or supports trunk or limbs, but provides less than half the effort. 2-Substantial/Maximal Assistance-helper does MORE THAN HALF the effort. [place] l ifts or holds trunk or limbs and provides more than half the effort. 7-Sizjhkdiq-gyqrlp does ALL the effort. Patient does none of the effort to complete the activity. Or, the assistance of 2 or more helpers is required for the patient to complete the activity. If activity was not attempted, code reason: 7-Patient Refused. 9-Not Applicable-not attempted and the patient did not perform the activity before the current illness, exacerbation or injury. 10-Not Attempted due to Environmental Limitations-(lack of equipment, weather restraints, etc.). 88-Not Attempted due to Medical Conditions or Safety Concerns. Roll Left to Right (QC): 2 Sit to Lying (QC): 4 Sit to Stand (QC): 4 Chair/Uxy-ed-Gqpbi Xfer(QC): 4 Car Transfer (QC): 3 Gait Training Does the Patient Walk?: Yes Walk 10 feet (QC): 4 Walk 50 ft with 2 Turns(QC): 88 Walk 150 ft (QC): 88 Walking 10ft/uneven surface-QC: 88 Gait Persons Needed: 1 (plus w/c to f/u) Gait Assistive Device: Handheld Assist (HH right and rail in watt left) Wheelchair Training Does the Pt Use a Wheelchair?: Yes Distance: 150'x3 Wheel 50 ft with 2 turns (QC): 3 Wheel 150 ft (QC): 2 Type of Wheelchair: Manual Stair Training 1 Step (curb) (QC): 88 4 Steps (QC): 88 12 Steps (QC): 88 Balance Picking up an Object (QC): 88 ADL-Treatment Eating (QC): 2 (Max assist to initiate holding spoon, and then able to only hold briefly without OT putting it back in hand. [place] assist to bring spoon to mouth. Pt. unable to hold the dish in other hand. Pt. used left hand to feed.) Oral Hygiene (QC): 5 Bathing Location: R Arm, L Upper Leg, R Upper Leg, Chest, Abdomen Shower/Bathe Self (QC): 3 Upper Body Dressing (QC): 3 Lower Body Dressing (QC): 3 On/Off Footwear (QC): 3 Toileting Hygiene (QC): 1 (Pt. incontinent of bowel in shower.) Toilet Transfer (QC): 3 (Mod assist to transfer to 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 Ensure adequate anticoagulation 2. PT, OT, and SAFETY RELIEF VALVE TECHNICIAN eval's and treat 3. Oxygen via NC- wean as tolerated 4. Resume Home medications 5. Fall precautions 6. Dietary consult 7. DVT prophylaxis 05/13/20: Patient participating well No pain reported Continue current meds Advance diet 05/14/20: James DC soon Continue home meds Therapies to continue protocol 05/15/20: Dr Houston appreciated Monitor BP Monitor labs 05/16/20: Bladder meds Appreciate Dr Houston PT OT ST 05/17/20: Voiding trial Monitor closely Variable moods 05/18/20: Monitor BP Encourage PO intake James cath management 05/19/20: Encourage participation with therapies Monitor james cath 05/20/20: Monitor closely Bladder management 05/21/20: Monitor closely Cath maintained? 05/22/20: Cath in place Check labs in am Increased dose of Urecholine 05/23/20: Monitor bladder function Increased dose of Urecholine (1) CVA (cerebral vascular accident) (2) Dysarthria (3) Dysphagia (4) PEG (percutaneous endoscopic gastrostomy) status (5) Expressive aphasia (6) Smoker (7) COPD (chronic obstructive pulmonary disease) (8) CAD (coronary artery disease) (9) Hx of CABG (10) James catheter in place (11) Retention of urine BECKI WAGNER DO May 23, 2020 05:45
[2020-05-23] MEDS: BETHANECHOL 25 MG (URECHOLINE) TAB PO SCH ×4 (06:16→20:21)
[2020-05-23 06:20] LABS: BASOPHILS % (AUTO) 1 % (0-10); EOSINOPHILS # (AUTO) 0.1 10^3/uL (0.0-0.3); EOSINOPHILS % (AUTO) 2 % (0-10); HEMATOCRIT 38 % (35-52); HEMOGLOBIN 11.7 g/dL (11.5-16.0); LYMPHOCYTES # (AUTO) 1.8 10^3/uL (1.0-4.0); LYMPHOCYTES % (AUTO) 29 % (12-44); MEAN CORPUSCULAR HEMOGLOBIN 28 pg (25-34); MEAN CORPUSCULAR HGB CONC 31 g/dL (32-36); MEAN CORPUSCULAR VOLUME 92 fL (80-99); MEAN PLATELET VOLUME 9.9 fL (9.0-12.2); MONOCYTES # (AUTO) 0.6 10^3/uL (0.0-1.0); MONOCYTES % (AUTO) 10 % (0-12); NEUTROPHILS # (AUTO) 3.5 10^3/uL (1.8-7.8); NEUTROPHILS % (AUTO) 58 % (42-75); PLATELET COUNT 353 10^3/uL (130-400); WHITE BLOOD COUNT 6.1 10^3/uL (4.3-11.0)
[2020-05-23 06:31] LABS: ALBUMIN 3.5 GM/DL (3.2-4.5); CHLORIDE 107 MMOL/L (98-107); POTASSIUM 3.6 MMOL/L (3.6-5.0); SODIUM 141 MMOL/L (135-145)
[2020-05-23 06:32] LABS: CALCIUM 8.5 MG/DL (8.5-10.1)
[2020-05-23 06:33] LABS: GLUCOSE 123 MG/DL (70-105)
[2020-05-23 06:34] LABS: TOTAL PROTEIN 6.4 GM/DL (6.4-8.2)
[2020-05-23 06:35] LABS: BILIRUBIN,TOTAL 0.2 MG/DL (0.1-1.0); CARBON DIOXIDE 22 MMOL/L (21-32)
[2020-05-23 06:37] LABS: ALKALINE PHOSPHATASE 94 U/L (40-136); CREATININE SERUM 0.56 MG/DL (0.60-1.30); GFR ESTIMATED > 60
[2020-05-23 06:38] LABS: BUN/CREATININE RATIO 13
[2020-05-23 06:40] LABS: ALANINE AMINOTRANSFERASE 19 U/L (0-55)
[2020-05-23] MEDS: inSUlin ASPART (NovoLOG) 1 UNIT/0.01 ML (CHARGE PER UNIT) SC SCH ×2 (07:17→16:59)
--- NOTE | 2020-05-23 08:33 | Occupational Ther Daily Note ---
OT Current Status-Daily Note Subjective Pt alert, lying in bed. Pt moaning and making sounds of distress. Pt appeared to be shivering, when asked if cold pt stated yes. DURAND got warm blanket and increased heat in room to make pt comfortable and decrease anxiety prior to working with pt. Alerted nrsg to increased anxiety. Pt agreed to therapy when anxiety decreased. Mental Status/Objective Patient Orientation: Person, Unable to Assess, Non-Verbal/Aphasic, Situation Attachments: Villan[place]va Catheter ADL-Treatment Pt agrees to sponge bath. Pt then began having stomach cramps and indicated she wanted to use BSC. Min A for supine to EOB. CGA for transfer from EOB to BSC, SPT. Pt attempted to cleanse after BM, DURAND assisted to stabilize in standing and complete hygiene. Pt then was able to eat fruit, applesauce and drink coffee by self after set up. Pt set up for sponge bath sitting in w/c. With verbal cues, pt able to was face, R UE and upper body. Lower body cleansed during toileting. Pt don upper body clothing Mod A to thread arms/head with verbal/physical cues. Pt don lower body clothing with verbal/physical cues, used DURAND to stabilize while hiking pants over L hip by self, assists with R hip. Pt was propelled to bathroom by DURAND to perform oral care, brushing hair with set up. Pt required multiple verbal/physical cues to use toothpaste appropriately, pt unable to complete DURAND set up oral care. Pt propelled back to bed by DURAND. Pt transferred to bed CGA with verbal cues to adjust body. Pt EOB to supine SBA for safety. Call light/phone in reach, bed alarm set. All needs met. Therapy Code Descriptions/Definitions Functional [place] Measure: 0=Not Assessed/NA 4=Minimal Assistance 1=Total Assistance 5=Supervision or Setup 2=Maximal Assistance 6=Modified [place] 3=Moderate Assistance 7=Complete IndependenceSCALE: Activities may be completed with or without assistive devices. 3-Hieipzbfmf-kbtgavp completes the activity by him/herself with no assistance from a helper. 5-Set-up or Clean-up Assistance-helper sets up or cleans up; patient completes activity. [place] assists only prior to or following the activity. 4-Supervision or Touching Assistance-helper provides verbal cues and/or touching/steadying and/or contact guard assistance as patient completes activity. Assistance may be provided throughout the activity or intermittently. 3-Partial/Moderate Assistance-helper does LESS THAN HALF the effort. [place] lifts, holds or supports trunk or limbs, but provides less than half the effort. 2-Substantial/Maximal Assistance-helper does MORE THAN HALF the effort. [place] lifts or holds trunk or limbs and provides more than half the effort. 6-Cusbzoaez-wnieoz does ALL the effort. Patient does none of the effort to complete the activity. Or, the assistance of 2 or more helpers is required for the patient to complete the activity. If activity was not attempted, code reason: 7-Patient Refused. 9-Not Applicable-not attempted and the patient did not perform the activity before the current illness, exacerbation or injury. 10-Not Attempted due to Environmental Limitations-(lack of equipment, weather restraints, etc.). 88-Not Attempted due to Medical Conditions or Safety Concerns. Eating (QC): 5 Oral Hygiene (QC): 5 Bathing Location: L Arm, L Upper Leg, R Upper Leg, Chest, Abdomen Shower/Bathe Self (QC): 2 (mod A) Upper Body Dressing (QC): 3 (mod A) Lower Body Dressing (QC): 2 (Max A) On/Off Footwear: 2 Toileting Hygiene (QC): 2 Toilet Transfer (QC): 4 (CGA) OT Short Term Goals Short Term Goals Time Frame: May 26, 2020 Eatin Oral hygiene: 3 Toileting hygiene: 3 Shower/bathe self: 3 Upper body dressin Lower body dressin Putting on/taking off footwear: 3 OT Emergency Department Manager Goals Prison Goals Time Frame: Jun 09, 2020 Eating (QC): 4 Oral Hygiene (QC): 4 Toileting Hygiene (QC): 3 Shower/Bathe Self (QC): 3 Upper Body Dressing (QC): 5 Lower Body Dressing (QC): 4 On/Off Footwear (QC): 4 Additional Goals: 1-Demonstrate ADL Tasks, 2-Verbalize Understanding, 3- ImproveStrength/Robbin 1=Demonstrate adherence to instructed precautions during ADL tasks. 2=Patient will verbalize/demonstrate understanding of assistive devices/modifications for ADL. 3=Patient will improve strength/tolerance for activity to enable patient to perform ADL's. OT Education/Plan Problem List/Assessment Assessment: Decreased Activ Tolerance, Decreased Safety Aware, Impaired Cognition, Impaired Coordination, Impaired Funct Balance, Impaired Self-Care Skills, Restricted Funct UE ROM, Visual-Perceptual Deficit Visual perceptual issues difficult to pinpoint due to severe global aphasia. Discharge Recommendations Plan/Recommendations: Continue POC Treatment Plan/Plan of Care Patient would benefit from OT for education, treatment and training to promote independence in ADL's, mobility, safety and/or upper extremity function for ADL's. Plan of Care: ADL Retraining, Functional Mobility, Group Exercise/Act as Ind, UE Funct Exercise/Act Treatment Duration: Jun 09, 2020 Frequency: At least 5 of 7 days/Wk (IRF) Estimated Hrs Per Day: 1.5 hours per day Agreement: Yes Rehab Potential: Fair Time/GCodes Start Time: 07:00 Stop Time: 08:30 Total Time Billed (hr/min): 90 Billed Treatment Time 1 visit-ADL 6 (90 min) MARGOT WADDELL May 23, 2020 08:33
[2020-05-23 08:38] VITALS: BP 139/61
[2020-05-23] MEDS: amLODIPine 5 MG (NORVASC) TAB PO SCH (08:55)
[2020-05-23] MEDS: polyethylene glycoL POWDER 17 GM (MIRALAX) PACK PO SCH ×2 (08:55→20:25)
[2020-05-23] MEDS: ASPIRIN 81 MG CHEW (CHILDREN'S ASA) PO SCH (08:55)
[2020-05-23] MEDS: SENNA W/DOCUSATE (SENOKOT S) TABLET PO SCH ×2 (08:55→20:25)
[2020-05-23] MEDS: CLOPIDOGREL 75 MG (PLAVIX) TABLET PO SCH (08:55)
[2020-05-23] MEDS: FAMOTIDINE 20 MG (PEPCID) TABLET PO SCH (08:55)
[2020-05-23] MEDS: DOCUSATE SODIUM 100 MG (COLACE) CAP PO SCH ×2 (08:55→20:25)
[2020-05-23] MEDS: CARVEDILOL 3.125 MG (COREG) TABLET PO SCH ×2 (08:55→20:21)
[2020-05-23] MEDS: RT-BUDESONIDE NEBS 0.5 MG/2ML (PULMICORT) AMP IH SCH ×3 (09:56→23:06)
[2020-05-23] MEDS: RT-ALBUTEROL/IPRATROPIUM 3 ML (DUONEB) VIAL IH SCH ×3 (09:56→23:05)
--- NOTE | 2020-05-23 10:09 | Physical Therapy Daily Note ---
PT Daily Note-Current Subjective Agreeable to PT. Repeats, "good" and "ok baby" during session. Also able to verbalize other short comments intermittently. Pain Numeric Pain Scale: 0-No Pain Transfers SCALE: Activities may be completed with or without assistive devices. 0-Dtstisqlpz-fubcfgk completes the activity by him/herself with no assistance from a helper. 5-Set-up or Clean-up Assistance-helper sets up or cleans up; patient completes activity. [place] assists only prior to or following the activity. 4-Supervision or Touching Assistance-helper provides verbal cues and/or touching/steadying and/or contact guard assistance as patient completes activity. Assistance may be provided throughout the activity or intermittently. 3-Partial/Moderate Assistance-helper does LESS THAN HALF the effort. [place] lifts, holds or supports trunk or limbs, but provides less than half the effort. 2-Substantial/Maximal Assistance-helper does MORE THAN HALF the effort. [place] lifts or holds trunk or limbs and provides more than half the effort. 5-Rmrwyarga-nmsckb does ALL the effort. Patient does none of the effort to complete the activity. Or, the assistance of 2 or more helpers is required for the patient to complete the activity. If activity was not attempted, code reason: 7-Patient Refused. 9-Not Applicable-not attempted and the patient did not perform the activity before the current illness, exacerbation or injury. 10-Not Attempted due to Environmental Limitations-(lack of equipment, weather restraints, etc.). 88-Not Attempted due to Medical Conditions or Safety Concerns. Sit to Lying (QC): 4 Lying to Sitting/Side of Bed(Q: 3 (min assist without a bed rail ) Sit to Stand (QC): 3 (min assist with skilled cues 95% of the time for hand placment and sequencing. ) Chair/Cuq-mb-Vbunl Xfer(QC): 3 (assist at gait belt and to manage FWW with platform) pt performs SPT to her left with more ease than to the right (as expected) and requires assist to manage her walker. Weight Bearing Right Lower Extremity: Right Full Weight Bearing Left Lower Extremity: Left Full Weight Bearing Gait Training Does the Patient Walk?: Yes Distance: 25 ft x 3 Walk 10 feet (QC): 3 Gait Assistive Device: Walker Platform Decreases step length and step through with wide MARIBEL and decreased coordinated movements LE. Assist to manage her walker as she tends to veer to the left. Wheelchair Training Does the Pt Use a Wheelchair?: Yes Wheel 50 ft with 2 turns (QC): 3 (Cues for task completing and min assist to propel) Exercises Supine Ex: Bridging, Ankle pumps, Quad Set, Glut sets, Heel Slides, Short Arc Quads, D2 F/E UE Supine Reps: 10 (Difficulty coordinating movements and needs cues throughout to correctly perform. Difficulty with right and left coordinated movement. ) Seated Therapy Exercises: Long arc quads, Hip flexion Seated Reps: 10 Treatments Functional transfers, gait and LE strength for coordinated movement and strength to improve upright mobility. Pt in recliner with legs elevated and chair alarm activated post treatment. Assessment Current Status: Good Progress Progressed with functional gait this date. Transfers progressing. Requires heavy cues for safety and sequencing. Cooperative and motivated. PT Short Term Goals Short Term Goals Time Frame: May 19, 2020 Roll Left & Right: 4 Sit to lyin (met) Lying to sitting on side of be: 3 Chair/bzq-af-hbnbh transfer: 3 (met) Walk 10 feet: 3 Does pt use a wc or scooter: Yes Wheel 50ft w/2 turns: 3 Wheel 150 feet: 3 PT Halfway Goals Gas Usage Meter Clerk Goals PT Halfway Goals Time Frame: Jun 02, 2020 Roll Left & Right (QC): 6 Sit to Lying (QC): 6 Lying-Sitting on Side/Bed(QC): 6 Sit to Stand (QC): 4 Chair/Zka-ip-Ifzfz Xfer(QC): 4 Toilet Transfer (QC): 4 Car Transfer (QC): 4 Does the Patient Walk: Yes Walk 10 feet (QC): 3 Walk 50ft with 2 Turns (QC): 3 Walk 150 ft (QC): 88 Walking 10ft on Uneven Surface: 3 1 Step (curb) (QC): 3 4 Steps (QC): 88 12 Steps (QC): 88 Picking up an Object (QC): 88 Does the Pt use WC or Scooter?: Yes Wheel 50 feet with 2 turns (QC: 6 Wheel 150 feet: 6 PT Plan Problem List Problem List: Activity Tolerance, Functional Strength, Safety, Balance, Gait, Transfer, Bed Mobility Treatment/Plan Treatment Plan: Continue Plan of Care Treatment Plan: Bed Mobility, Education, Functional Activity [place], Functional Strength, Group Therapy, Gait, Safety, Therapeutic Exercise, Transfers Treatment Duration: May 13, 2020 Frequency: At least 5 of 7 days/Wk (IRF) Estimated Hrs Per Day: 1.5 hours per day Patient and/or Family Agrees t: Yes Safety Risks/Education Patient Education: Transfer Techniques, Safety Issues Teaching Recipient: Patient Teaching Methods: Demonstration Response to Teaching: Reinforcement Needed Discharge Recommendations Therapy Discharge Recommendati: Post Acute PT Time/GCodes Time In: 900 Time Out: 1000 Total Billed Treatment Time: 60 Total Billed Treatment visit WC 15 GT 15 EX 30 MARGOT CHAVEZ PT May 23, 2020 10:09
--- NOTE | 2020-05-23 12:37 | Progress Note - Urology ---
Progress Note-Urology Progress Notes/Assess & Plan Progress/Assessment & Plan CISNEROS BACK IN. TOLERATES URECHOLINE WELL. TOV TOMORROW Final Diagnosis RETENTION TANIA MENDEZ MD May 23, 2020 12:37
[2020-05-23] MEDS: ALPRAZolam 0.25 MG (XANAX) TAB PO PRN ×2 (13:16→21:49)
--- NOTE | 2020-05-23 14:31 | Speech Therapy Daily Note ---
Speech Daily Progress Note Subjective Date Seen by Provider: May 23, 2020 Time Seen by Provider: 00:30 The patient was resting in her recliner watching the weather when I entered her room. Patient was alert and participated with therapy. Objective Patient answered general information questions with 60% accuracy given moderate verbal cues and/or repetitions. Assessment Assessment Current Status: Fair Progress Treatment Plan Continue Plan of Care Speech Short Term Goals Short Term Goals Short Term Goals 1) The patient will complete cognitive tasks related to memory, safety awareness and problem solving at 80% with minimal cues. 2) The patient will complete speech tasks to improve intelligibility at 80% with minimal cues. 3) The patient will complete confrontational naming tasks at 90% with minimal cues. 4) The patient will complete OME for improved oral status for safe oral intake at 80% or greater with minimal cues. Speech Bill Collector Goals Halfway Goals Patient will improve communication abilities and safe oral intake in order to return to prior level. Speech-Plan Patient/Family Goals Patient/Family Goals: Patient plans on discharging to her daughter's home. Treatment Plan Speech Therapy Treatment Plan: Continue Plan of Care Treatment Duration: May 25, 2020 Frequency: 4 times per week (Patient will receive ST 4-5x per week) Estimated Hrs Per Day: .5 hour per day Rehab Potential: Fair Barriers to Learning: Patient's recent CVA, level of progress, age Pt/Family Agrees to Plan: Yes Safety Risks/Education Teaching Recipient: Patient Teaching Methods: Demonstration, Discussion Response to Teaching: Verbalize Understanding, Return Demonstration Education Topics Provided: Continued safety within her room, utilizing the call light as needed Continued safety with oral intake Time Speech Therapy Time In: 11:30 Speech Therapy Time Out: 12:00 Total Billed Time: 30 Billed Treatment Time 1, OMAR, SHERYL Huang May 23, 2020 14:30
--- NOTE | 2020-05-23 14:38 | Physical Therapy Daily Note ---
PT Daily Note-Current Subjective Agrees to PT. Eager to walk with PT. Transfers SCALE: Activities may be completed with or without assistive devices. 8-Pfunciwoud-pyziyyp completes the activity by him/herself with no assistance from a helper. 5-Set-up or Clean-up Assistance-helper sets up or cleans up; patient completes activity. [place] assists only prior to or following the activity. 4-Supervision or Touching Assistance-helper provides verbal cues and/or touching/steadying and/or contact guard assistance as patient completes activity. Assistance may be provided throughout the activity or intermittently. 3-Partial/Moderate Assistance-helper does LESS THAN HALF the effort. [place] lifts, holds or supports trunk or limbs, but provides less than half the effort. 2-Substantial/Maximal Assistance-helper does MORE THAN HALF the effort. [place] lifts or holds trunk or limbs and provides more than half the effort. 9-Jfdtefkan-fbdosp does ALL the effort. Patient does none of the effort to complete the activity. Or, the assistance of 2 or more helpers is required for the patient to complete the activity. If activity was not attempted, code reason: 7-Patient Refused. 9-Not Applicable-not attempted and the patient did not perform the activity before the current illness, exacerbation or injury. 10-Not Attempted due to Environmental Limitations-(lack of equipment, weather restraints, etc.). 88-Not Attempted due to Medical Conditions or Safety Concerns. Sit to Lying (QC): 4 (CGA with cues for sequencing and safety. ) Chair/Etm-ln-Jnyyr Xfer(QC): 3 (Performed x 3 reps. ) Weight Bearing Right Lower Extremity: Right Full Weight Bearing Left Lower Extremity: Left Full Weight Bearing Gait Training Does the Patient Walk?: Yes Distance: 25 ft x 2 Gait Assistive Device: Walker Platform Requires assist to manage her walker and min assist for balance and to maintain upright mobility. Cues for safety. Tends to veer left and keep walker too far ahead. Difficulty keeping right arm/hand on platform. Treatments Pt in bed post treatment with alarm activated and needs met. Assessment Current Status: Good Progress Cooperative and motivated. Tolerated treatment well. Still needs much assist with gait. PT Short Term Goals Short Term Goals Time Frame: May 19, 2020 Roll Left & Right: 4 Sit to lyin (met) Lying to sitting on side of be: 3 Chair/hdz-hu-cgilk transfer: 3 (met) Walk 10 feet: 3 Does pt use a wc or scooter: Yes Wheel 50ft w/2 turns: 3 Wheel 150 feet: 3 PT Preventive Medicine Officer Goals Preventive Medicine Officer Goals PT Preventive Medicine Officer Goals Time Frame: Jun 02, 2020 Roll Left & Right (QC): 6 Sit to Lying (QC): 6 Lying-Sitting on Side/Bed(QC): 6 Sit to Stand (QC): 4 Chair/Sdt-tr-Syqdm Xfer(QC): 4 Toilet Transfer (QC): 4 Car Transfer (QC): 4 Does the Patient Walk: Yes Walk 10 feet (QC): 3 Walk 50ft with 2 Turns (QC): 3 Walk 150 ft (QC): 88 Walking 10ft on Uneven Surface: 3 1 Step (curb) (QC): 3 4 Steps (QC): 88 12 Steps (QC): 88 Picking up an Object (QC): 88 Does the Pt use WC or Scooter?: Yes Wheel 50 feet with 2 turns (QC: 6 Wheel 150 feet: 6 PT Plan Problem List Problem List: Activity Tolerance, Functional Strength, Safety Treatment/Plan Treatment Plan: Continue Plan of Care Treatment Plan: Bed Mobility, Education, Functional Activity Robbin, Functional Strength, Group Therapy, Gait, Safety, Therapeutic Exercise, Transfers Treatment Duration: May 13, 2020 Frequency: At least 5 of 7 days/Wk (IRF) Estimated Hrs Per Day: 1.5 hours per day Patient and/or Family Agrees t: Yes Safety Risks/Education Patient Education: Gait Training Teaching Recipient: Patient Teaching Methods: Demonstration, Discussion Response to Teaching: Reinforcement Needed Time/GCodes Time In: 1330 Time Out: 1400 Total Billed Treatment Time: 30 Total Billed Treatment visit GT 30 MARGOT CHAVEZ PT May 23, 2020 14:38
[2020-05-23 18:40] VITALS: BP 133/61
[2020-05-23] MEDS: TAMSULOSIN 0.4 MG (FLOMAX) CAP PO SCH (18:50)
[2020-05-23 20:27] VITALS: BP 139/67
[2020-05-24] MEDS: amLODIPine 5 MG (NORVASC) TAB PO SCH (05:47)
[2020-05-24] MEDS: BETHANECHOL 25 MG (URECHOLINE) TAB PO SCH ×4 (05:47→19:49)
[2020-05-24] MEDS: inSUlin ASPART (NovoLOG) 1 UNIT/0.01 ML (CHARGE PER UNIT) SC SCH ×2 (05:54→17:03)
[2020-05-24 06:00] VITALS: BP 171/72
--- NOTE | 2020-05-24 06:42 | NUR ---
[facility] ADMIN EARLY FOR 0530 BP READIN/72. FOLLOW UP BP 134/78, HR 86 AT THIS TIME. CONT TO MONITOR.
[2020-05-24] MEDS: RT-ALBUTEROL/IPRATROPIUM 3 ML (DUONEB) VIAL IH SCH ×2 (07:19→18:55)
[2020-05-24] MEDS: RT-BUDESONIDE NEBS 0.5 MG/2ML (PULMICORT) AMP IH SCH ×2 (07:19→18:55)
--- NOTE | 2020-05-24 08:33 | PM&R Progress Note ---
Subjective HPI/CC On Admission Date Seen by Provider: May 24, 2020 Time Seen by Provider: 08:40 Subjective/Events-last exam 05/24/20: Pt doing pretty well Re-inserted james due to retention Yeast infection will be managed with Diflucan and Monistat cream 05/23/20: Pt still doing pretty well Participation in therapy varies Cognition is an issue Overall doing well enough to remain stable 05/22/20: James cath still in place Urecholine 50mg dose now BM today 05/21/20: Likely will need catheter replaced No pain reported Feeder maintained adequate consumption 05/20/20: Patient about the same Requires a feeder to eat No pain reported Confusion is a limitation 05/19/20: Pt has varying participation with PT and OT Accu cheks changed to BID Will monitor pt closely Denies any pain Is a feeder 05/18/20: Re inserted the james since urinary retention continued Increasing oral fluids Urecholine was increased dose barron Bowels are moving 05/17/20: Xanax given last night Bowels moved yesterday Refusing to eat supper or breakfast today Agitated a bit today Post-void residual had 238 Hadnt voided since discontinued the cath yesterday 05/16/20: Dr. Houston will discontinue the catheter and evaluate voiding trial today Flomax and Urecholine maintained Bowels are moving Very difficult to recover from catastrophic stroke 05/15/20: Patient participating with therapy No pain reported Dr Houston consulted for james catheter 05/14/20: Patient denies pain Working well with structured therapies James cath still in place will need to DC soon Working on BM regimen Patient doing well Settling in well No pain reported Working with PT OT and ST Eating a bit more without aspiration No falls Checked meds and labs Conferred with RN Reviewed therapy notes Review of Systems General: Malaise Neurological: Weakness, Incoordination Objective Exam Vital Signs Vital Signs Date Time Temp Pulse Resp B/P (MAP) Pulse Ox O2 Delivery O2 Flow Rate FiO2 05/25/20 06:07 36.4 80 18 130/59 (82) 94 Room Air Capillary Refill : Less Than 3 Seconds General Appearance: No Apparent Distress, Anxious, Chronically ill, Thin HEENT: PERRL/EOMI, Normal ENT Inspection, Pharynx Normal Neck: Full Range of Motion, Normal Inspection, Non Tender, Supple, Carotid Bruit Respiratory: Chest Non Tender, Lungs Clear, No Accessory Muscle Use, No Respiratory Distress, Decreased Breath Sounds Cardiovascular: Regular Rate, Rhythm, No Edema, No Gallop, No JVD, No Murmur, Normal Peripheral Pulses Gastrointestinal: Normal Bowel Sounds, No Organomegaly, No Pulsatile Mass, Non Tender, Soft Back: Normal Inspection, No CVA Tenderness, No Vertebral Tenderness Extremity: Normal Capillary Refill, Normal Inspection, Normal Range of Motion (except right sided weakness), Non Tender, No Calf Tenderness, No Pedal Edema Neurologic/Psychiatric: Alert, No Motor/Sensory Deficits, Normal Mood/Affect, Abnormal plant controls specialist II-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 FIM Transfers Therapy Code Descriptions/Definitions Functional [place] Measure: 0=Not Assessed/NA 4=Minimal Assistance 1=Total Assistance 5=Supervision or Setup 2=Maximal Assistance 6=Modified [place] 3=Moderate Assistance 7=Complete IndependenceSCALE: Activities may be completed with or without assistive devices. 4-Nypuisxulc-mcbdgjr completes the activity by him/herself with no assistance from a helper. 5-Set-up or Clean-up Assistance-helper sets up or cleans up; patient completes activity. [place] assists only prior to or following the activity. 4-Supervision or Touching Assistance-helper provides verbal cues and/or touching/steadying and/or contact guard assistance as patient completes activity. Assistance may be provided throughout the activity or intermittently. 3-Partial/Moderate Assistance-helper does LESS THAN HALF the effort. [place] lifts, holds or supports trunk or limbs, but provides less than half the effort. 2-Substantial/Maximal Assistance-helper does MORE THAN HALF the effort. [place] lifts or holds trunk or limbs and provides more than half the effort. 3-Qtoqruogz-rurwqz does ALL the effort. Patient does none of the effort to complete the activity. Or, the assistance of 2 or more helpers is required for the patient to complete the activity. If activity was not attempted, code reason: 7-Patient Refused. 9-Not Applicable-not attempted and the patient did not perform the activity before the current illness, exacerbation or injury. 10-Not Attempted due to Environmental Limitations-(lack of equipment, weather restraints, etc.). 88-Not Attempted due to Medical Conditions or Safety Concerns. Roll Left to Right (QC): 2 Sit to Lying (QC): 4 (CGA with cues for sequencing and safety. ) Sit to Stand (QC): 3 (min assist with skilled cues 95% of the time for hand placment and sequencing. ) Chair/Mic-yd-Nuxqa Xfer(QC): 3 (Performed x 3 reps. ) Car Transfer (QC): 3 Gait Training Does the Patient Walk?: Yes Distance: 25 ft x 2 Walk 10 feet (QC): 3 Walk 50 ft with 2 Turns(QC): 88 Walk 150 ft (QC): 88 Walking 10ft/uneven surface-QC: 88 Gait Persons Needed: 1 (plus w/c to f/u) Gait Assistive Device: Walker Platform Wheelchair Training Does the Pt Use a Wheelchair?: Yes Distance: 150'x3 Wheel 50 ft with 2 turns (QC): 3 (Cues for task completing and min assist to propel) Wheel 150 ft (QC): 2 Type of Wheelchair: Manual Stair Training 1 Step (curb) (QC): 88 4 Steps (QC): 88 12 Steps (QC): 88 Balance Picking up an Object (QC): 88 ADL-Treatment Eating (QC): 5 Oral Hygiene (QC): 5 Bathing Location: L Arm, L Upper Leg, R Upper Leg, Chest, Abdomen Shower/Bathe Self (QC): 2 (mod A) Upper Body Dressing (QC): 3 (mod A) Lower Body Dressing (QC): 2 (Max A) On/Off Footwear (QC): 2 Toileting Hygiene (QC): 2 Toilet Transfer (QC): 4 (CGA) Assessment/Plan Assessment and Plan Assess & Plan/Chief Complaint Assessment per KENNETH AlejandreII: 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 Ensure adequate anticoagulation 2. PT, OT, and MODEL AND DYE PERSON eval's and treat 3. Oxygen via NC- wean as tolerated 4. Resume Home medications 5. Fall precautions 6. Dietary consult 7. DVT prophylaxis 05/13/20: Patient participating well No pain reported Continue current meds Advance diet 05/14/20: James DC soon Continue home meds Therapies to continue protocol 05/15/20: Dr Houston appreciated Monitor BP Monitor labs 05/16/20: Bladder meds Appreciate Dr Houston PT OT ST 05/17/20: Voiding trial Monitor closely Variable moods 05/18/20: Monitor BP Encourage PO intake James cath management 05/19/20: Encourage participation with therapies Monitor james cath 05/20/20: Monitor closely Bladder management 05/21/20: Monitor closely Cath maintained? 05/22/20: Cath in place Check labs in am Increased dose of Urecholine 05/23/20: Monitor bladder function Increased dose of Urecholine 05/24/20: Maintain james catheter IRF protocol Family evaluating DC plans (1) CVA (cerebral vascular accident) (2) Dysarthria (3) Dysphagia (4) PEG (percutaneous endoscopic gastrostomy) status (5) Expressive aphasia (6) Smoker (7) COPD (chronic obstructive pulmonary disease) (8) CAD (coronary artery disease) (9) Hx of CABG (10) James catheter in place (11) Retention of urine BECKI WAGNER DO May 24, 2020 08:33
[2020-05-24] MEDS: ASPIRIN 81 MG CHEW (CHILDREN'S ASA) PO SCH (08:55)
[2020-05-24] MEDS: CARVEDILOL 3.125 MG (COREG) TABLET PO SCH ×2 (08:55→19:49)
[2020-05-24] MEDS: SENNA W/DOCUSATE (SENOKOT S) TABLET PO SCH ×2 (08:55→19:49)
[2020-05-24] MEDS: DOCUSATE SODIUM 100 MG (COLACE) CAP PO SCH ×2 (08:55→19:49)
[2020-05-24] MEDS: ALPRAZolam 0.25 MG (XANAX) TAB PO PRN ×2 (08:55→19:49)
[2020-05-24] MEDS: CLOPIDOGREL 75 MG (PLAVIX) TABLET PO SCH (08:55)
[2020-05-24] MEDS: FAMOTIDINE 20 MG (PEPCID) TABLET PO SCH (08:55)
[2020-05-24] MEDS: polyethylene glycoL POWDER 17 GM (MIRALAX) PACK PO SCH ×2 (08:57→19:30)
--- NOTE | 2020-05-24 09:20 | Cardiology Progress Note ---
Subjective Date Seen by Provider: May 24, 2020 Time Seen by Provider: 09:19 Subjective/Events-last exam Patient is sitting up at bedside, denies any chest pain or dyspnea. Objective-Cardiology Exam Last Set of Vital Signs Vital Signs 05/24/20 05/24/20 05/24/20 06:00 07:21 09:00 Temp 36.4 Pulse 83 Resp 18 B/P (MAP) 171/72 (105) Pulse Ox 94 O2 Delivery Room Air Capillary Refill : Less Than 3 Seconds I&O Intake and Output 05/24/20 00:00 Intake Total 870 ml Output Total 1025 ml Balance -155 ml Intake Oral 870 ml Output Urine Total 1025 ml # Bowel Movements 2 General: Alert, Oriented X3, Cooperative HEENT: Atraumatic, PERRLA Neck: Supple, No JVD, No Thyromegaly Lungs: Clear to Auscultation, Normal Air Movement Heart: Regular Rate, Normal S1, Normal S2, No Murmurs Abdomen: Normal Bowel Sounds, Soft, No Tenderness, No Hepatosplenomegaly, No Masses Extremities: No Clubbing, No Cyanosis, No Edema, Normal Pulses, No Tenderness/Swelling Skin: No Rashes, No Breakdown, No Significant Lesion Neuro: Normal Gait, Normal Speech, Strength at 5/5 X4 Ext, Normal Tone, Sensation Intact Psych/Mental Status: Mental Status NL, Mood NL A/P-Cardiology Admission Diagnosis CVA Coronary artery disease Hypertension Hyperlipidemia Assessment/Plan Status post CVA post CABG with residual right hemiparesis, receiving PT OT, on Plavix and ASA. Coronary artery disease status post CABG 3. Continue to monitor at this time. Hypertension, controlled, continue to monitor Hyperlipidemia, monitor lipids Questionable peripheral arterial disease with ischemic event after her bypass has improved after conservative management, continue on Plavix Diabetes mellitus, followed and managed by primary care physician Debility, receiving physical therapy Patient was seen and evaluated with Meenakshi, examination performed, management plan was discussed, agree with the current scribed note, I made few changes to the note using Italic font Patient was seen at bedside, sitting comfortably, no new complaint Continue on current medication and continue to monitor Clinical Quality Measures DVT/VTE Risk/Contraindication: Risk Factor Score Per Nursin RFS Level Per Nursing on Admit: 4+=Very High MEENAKSHI CANADA May 24, 2020 09:20 LOU KASPER MD May 24, 2020 12:00
--- NOTE | 2020-05-24 10:19 | Progress Note - Urology ---
Progress Note-Urology Progress Notes/Assess & Plan Progress/Assessment & Plan TOV TODAY Final Diagnosis URINE RETENTION TANIA MENDEZ MD May 24, 2020 10:19
--- NOTE | 2020-05-24 10:20 | Physical Therapy Daily Note ---
PT Daily Note-Current Subjective Pt sitting up in bed upon arrival. Family(daughter & son) is present for Family Training and co-treat for PT/OT. Pain Location: No Pain Reported Mental Status Patient Orientation: Person, [place] Attachments: Villanueva Catheter Transfers SCALE: Activities may be completed with or without assistive devices. 7-Xrxvqucgzn-zevosog completes the activity by him/herself with no assistance from a helper. 5-Set-up or Clean-up Assistance-helper sets up or cleans up; patient completes activity. [place] assists only prior to or following the activity. 4-Supervision or Touching Assistance-helper provides verbal cues and/or touching/steadying and/or contact guard assistance as patient completes activity. Assistance may be provided throughout the activity or intermittently. 3-Partial/Moderate Assistance-helper does LESS THAN HALF the effort. [place] lifts, holds or supports trunk or limbs, but provides less than half the effort. 2-Substantial/Maximal Assistance-helper does MORE THAN HALF the effort. [place] lifts or holds trunk or limbs and provides more than half the effort. 7-Fjrpwhatx-objeoc does ALL the effort. Patient does none of the effort to complete the activity. Or, the assistance of 2 or more helpers is required for the patient to complete the activity. If activity was not attempted, code reason: 7-Patient Refused. 9-Not Applicable-not attempted and the patient did not perform the activity before the current illness, exacerbation or injury. 10-Not Attempted due to Environmental Limitations-(lack of equipment, weather restraints, etc.). 88-Not Attempted due to Medical Conditions or Safety Concerns. Lying to Sitting/Side of Bed(Q: 4 Sit to Stand (QC): 4 Weight Bearing Right Lower Extremity: Right Full Weight Bearing Left Lower Extremity: Left Full Weight Bearing Gait Training Does the Patient Walk?: Yes Distance: 50' Walk 10 feet (QC): 3 Walk 50 ft with 2 Turns(QC): 3 Gait Persons Needed: 1 Gait Assistive Device: Walker Platform Attempted BLOCK SAWYER due to pt pushing/drifting to L side but both pt and EGGS INSPECTOR did not feel this was safe option. Exercises Seated Therapy Exercises: Ankle pumps, Long arc quads, Hip flexion, Kicking activity, Hip abd/add Seated Reps: 15 Treatments Pt's family present to determine pt's needs for home. OT and PT facilitated co- treatment to address UE mobility, LE mobility, balance, ambulation, ADLs, vision, communication abilities, and overall progress. Pt. transferred supine- sit with SBA and was able to complete sponge bath sitting on side of bed. Tolerated this well. Family is able to observe all ADLs and ask questions throughout. OT/PT educated them on right sided neglect, and inability to always understand what is being communicated to her, and inability to always communicate. Both family members verbalized understanding and seemed impressed at pt's progress overall thus far. Family educated in PROM as well as AROM performance of right UE. Both were educated in possible equipment needs, including platform walker, manual wheelchair, and BSC. After session, family re-directed to social work for continued education and discharge planning. All needs met back in room and pt. in reclining chair. Assessment Current Status: Good Progress Pt has improved with sitting balance as well as transfers, still need TC & VC for safety though. PT Short Term Goals Short Term Goals Time Frame: May 19, 2020 Roll Left & Right: 4 Sit to lyin (met) Lying to sitting on side of be: 3 Chair/ksi-mr-wpgwz transfer: 3 (met) Walk 10 feet: 3 Does pt use a wc or scooter: Yes Wheel 50ft w/2 turns: 3 Wheel 150 feet: 3 PT Splitter Operator Goals Splitter Operator Goals PT Splitter Operator Goals Time Frame: Jun 02, 2020 Roll Left & Right (QC): 6 Sit to Lying (QC): 6 Lying-Sitting on Side/Bed(QC): 6 Sit to Stand (QC): 4 Chair/Zlb-jf-Akwkf Xfer(QC): 4 Toilet Transfer (QC): 4 Car Transfer (QC): 4 Does the Patient Walk: Yes Walk 10 feet (QC): 3 Walk 50ft with 2 Turns (QC): 3 Walk 150 ft (QC): 88 Walking 10ft on Uneven Surface: 3 1 Step (curb) (QC): 3 4 Steps (QC): 88 12 Steps (QC): 88 Picking up an Object (QC): 88 Does the Pt use WC or Scooter?: Yes Wheel 50 feet with 2 turns (QC: 6 Wheel 150 feet: 6 PT Plan Problem List Problem List: Activity Tolerance, Safety, Balance, Gait Treatment/Plan Treatment Plan: Continue Plan of Care Treatment Plan: Bed Mobility, Education, Functional Activity Robbin, Functional Strength, Group Therapy, Gait, Safety, Therapeutic Exercise, Transfers Treatment Duration: May 13, 2020 Frequency: At least 5 of 7 days/Wk (IRF) Estimated Hrs Per Day: 1.5 hours per day Patient and/or Family Agrees t: Yes Safety Risks/Education Patient Education: Gait Training, Transfer Techniques, Issued Written HEP, Correct Positioning, Safety Issues Teaching Recipient: Patient, Family Teaching Methods: Discussion Response to Teaching: Verbalize Understanding Discharge Recommendations Therapy Discharge Recommendati: Post Acute PT, Post Acute ST, Post Acute OT Equpiment Recommendations-D/C: Standard Walker Time/GCodes Time In: 900 Time Out: 1015 Total Billed Treatment Time: 75 Total Billed Treatment 1, GT x2 (25m), EX (20m) & FA x2 (30m) JONATHAN KESSLER EGGS INSPECTOR May 24, 2020 10:20
[2020-05-24] MEDS: fluCOnazole (DIFLUCAN) 100 MG TAB PO SCH (13:17)
[2020-05-24] MEDS: MICONAZOLE NITRATE 2% CRM 30 GM TP SCH ×2 (13:18→19:53)
--- NOTE | 2020-05-24 13:40 | Speech Therapy Daily Note ---
Speech Daily Progress Note Subjective Date Seen by Provider: May 24, 2020 Time Seen by Provider: 00:30 Patient was resting in her recliner following family training with her son and daughter. Objective Patient followed directions to initial areas on her DPOA papers with 100% given verbal cues for each. Assessment Assessment Current Status: Good Progress Treatment Plan Continue Plan of Care Speech Short Term Goals Short Term Goals Short Term Goals 1) The patient will complete cognitive tasks related to memory, safety awareness and problem solving at 80% with minimal cues. 2) The patient will complete speech tasks to improve intelligibility at 80% with minimal cues. 3) The patient will complete confrontational naming tasks at 90% with minimal cues. 4) The patient will complete OME for improved oral status for safe oral intake at 80% or greater with minimal cues. Speech [place] Goals Care Home Goals Patient will improve communication abilities and safe oral intake in order to return to prior level. Speech-Plan Patient/Family Goals Patient/Family Goals: Patient will discharge to her daughter's home. Treatment Plan Speech Therapy Treatment Plan: Continue Plan of Care Treatment Duration: May 25, 2020 Frequency: 4 times per week (Patient will receive ST 4-5x per week) Estimated Hrs Per Day: .5 hour per day Rehab Potential: Fair Barriers to Learning: Patient's recent CVA, age Pt/Family Agrees to Plan: Yes Safety Risks/Education Teaching Recipient: Patient, Family Teaching Methods: Demonstration, Discussion Response to Teaching: Verbalize Understanding, Return Demonstration Education Topics Provided: Continued safety upon her return home Continued safety of oral intake Time Speech Therapy Time In: 10:30 Speech Therapy Time Out: 11:00 Total Billed Time: 30 Billed Treatment Time 1, OMAR, SHERYL Huang May 24, 2020 13:40
--- NOTE | 2020-05-24 14:04 | Occupational Ther Daily Note ---
OT Current Status-Daily Note Subjective No pain reported. Appearance Pt. in bed. Family present for family training. Mental Status/Objective Patient Orientation: Person, Place ADL-Treatment Therapy Code Descriptions/Definitions Functional [place] Measure: 0=Not Assessed/NA 4=Minimal Assistance 1=Total Assistance 5=Supervision or Setup 2=Maximal Assistance 6=Modified [place] 3=Moderate Assistance 7=Complete IndependenceSCALE: Activities may be completed with or without assistive devices. 7-Zmkwnsvhju-mawvjku completes the activity by him/herself with no assistance from a helper. 5-Set-up or Clean-up Assistance-helper sets up or cleans up; patient completes activity. [place] assists only prior to or following the activity. 4-Supervision or Touching Assistance-helper provides verbal cues and/or touc hiram/steadying and/or contact guard assistance as patient completes activity. Assistance may be provided throughout the activity or intermittently. 3-Partial/Moderate Assistance-helper does LESS THAN HALF the effort. [place] lifts, holds or supports trunk or limbs, but provides less than half the effort. 2-Substantial/Maximal Assistance-helper does MORE THAN HALF the effort. [place] lifts or holds trunk or limbs and provides more than half the effort. 0-Vhkdpooig-obfdzy does ALL the effort. Patient does none of the effort to complete the activity. Or, the assistance of 2 or more helpers is required for the patient to complete the activity. If activity was not attempted, code reason: 7-Patient Refused. 9-Not Applicable-not attempted and the patient did not perform the activity before the current illness, exacerbation or injury. 10-Not Attempted due to Environmental Limitations-(lack of equipment, weather restraints, etc.). 88-Not Attempted due to Medical Conditions or Safety Concerns. Oral Hygiene (QC): 4 (SBA and constant cues to brush teeth while seated at sink.) Shower/Bathe Self (QC): 2 (Max assist overall. Pt. is able to wash her chest and top of her legs. OT washes under each arm and under breasts, as well as rear lopez area and bilateral feet. Pt. is cued to wash parts, but due to aphasia, is not always able to understand.) Upper Body Dressing (QC): 2 (Max assist to doff and don shirt.) Lower Body Dressing (QC): 2 (Max assist to don brief and pants.) On/Off Footwear: 1 (Dependent to don socks and slippers.) Other Treatment Pt's family present to determine pt's needs for home. OT and PT facilitated co- treatment to address UE mobility, LE mobility, balance, ambulation, ADLs, vision, communication abilities, and overall progress. Pt. transferred supine- sit with SBA and was able to complete sponge bath sitting on side of bed. Tolerated this well. Family is able to observe all ADLs and ask questions throughout. OT/PT educated them on right sided neglect, and inability to always understand what is being communicated to her, and inability to always communicate. Both family members verbalized understanding and seemed impressed at pt's progress overall thus far. Family educated in PROM as well as AROM performance of right UE. Both were educated in possible equipment needs, including platform walker, manual wheelchair, and BSC. After session, family re-directed to social work for continued education and discharge planning. All needs met back in room and pt. in reclining chair. Education OT Patient Education: Correct positioning, Exercise program, Home exercise program, Modified ADL techniques, Progress toward Goal/Update tx plan, Purpose of tx/functional activities, Reviewed precautions, Rehab process, Transfer techniques Teaching Recipient: Patient Teaching Methods: Demonstration, Discussion Response to Teaching: Verbalize Understanding, Return Demonstration OT Short Term Goals Short Term Goals Time Frame: May 26, 2020 Eatin Oral hygiene: 3 Toileting hygiene: 3 Shower/bathe self: 3 Upper body dressin Lower body dressin Putting on/taking off footwear: 3 OT Longterm Goals Longterm Goals Time Frame: Jun 09, 2020 Eating (QC): 4 Oral Hygiene (QC): 4 Toileting Hygiene (QC): 3 Shower/Bathe Self (QC): 3 Upper Body Dressing (QC): 5 Lower Body Dressing (QC): 4 On/Off Footwear (QC): 4 Additional Goals: 1-Demonstrate ADL Tasks, 2-Verbalize Understanding, 3-I mproveStrength/Robbin 1=Demonstrate adherence to instructed precautions during ADL tasks. 2=Patient will verbalize/demonstrate understanding of assistive devices/modifications for ADL. 3=Patient will improve strength/tolerance for activity to enable patient to perform ADL's. OT Education/Plan Problem List/Assessment Assessment: Decreased Activ Tolerance, Decreased Safety Aware, Decreased UE Strength, Impaired Cognition, Impaired Coordination, Impaired Funct Balance, Impaired I ADL's, Impaired Self-Care Skills, Restricted Funct UE ROM, Visual- Perceptual Deficit Visual perceptual issues difficult to pinpoint due to severe global aphasia. Discharge Recommendations Plan/Recommendations: Continue POC Therapy Discharge Recommendati: Scheduled Assistance, Home & Family, Post Acute OT Comment Pt. will need platform walker, manual wheelchair, and BSC. Would also possibly benefit from shower chair. Treatment Plan/Plan of Care Treatment,Training & Education: Yes Patient would benefit from OT for education, treatment and training to promote independence in ADL's, mobility, safety and/or upper extremity function for AD L's. Plan of Care: ADL Retraining, Caregiver Training, Cognitive Retraining, Functional Mobility, Group Exercise/Act as Ind, UE Funct Exercise/Act, UE Neuromus Re-Ed/Coord, Visual/Perceptual Retrain, W/C Management Training Treatment Duration: Jun 09, 2020 Frequency: At least 5 of 7 days/Wk (IRF) Estimated Hrs Per Day: 1.5 hours per day Agreement: Yes Rehab Potential: Fair Time/GCodes Start Time: 08:50 Stop Time: 10:05 Total Time Billed (hr/min): 75 Billed Treatment Time 1, ADL x 45minutes, FA x 30minutes RALPH LUO OT May 24, 2020 14:04
--- NOTE | 2020-05-24 14:40 | NUR ---
CM/SS CONCURRENT DOCUMENTATION Son Emanuel Nicolas and daughter Rula Junior here this a.m. to participate with patient therapy sessions as part of discharge planning. Technology Instructor intermittently visited to check on progress and family feedback. Later met with patient and both children, they are all in agreement to continue to plan for patient to go to Rula's home where she will reside. Rula has prepared a room for patient. HHC: Will set up with an agency in [facility] service area for RN PT OT ST. DME: Will need FWW with Right Platform. Children utilize [employer] services in [place], patient is not eligible. However, Rula indicated she had spoken to them and likely would be able to access resources on behalf of patient as a caregiver. Emanuel and Rula understand that patient can only get the FWW or the wheelchair through Medicare and that they would need to get the alternate. Additionally, they understand that the BSC and Tub Transfer Bench would be private pay items. Emanuel plans to pursue these through an agency in [place]. PRIVATE PAY: Children have resources from remote mortgage underwriter for in-home caregivers. They will pursue agency vs private individuals for caregiving of patient while Rula is at work. She works for the [employer] and is going to pursue FMLA so she can be at home as needed. The children brought DPOA and POA-HC documents for patient's signature. Family reviewed with patient thoroughly, remote mortgage underwriter followed up by asking patient if she understood the specific content of each document. She answered to remote mortgage underwriter satisfaction that she definitely did and that she trusted her children to care for her and to manage her legal/financial matters. Patient is right dominant and is with right-sided neglect post CVA. She initialed the documents with her left hand with pen with adaptive gripper. She stayed on task to complete the documents. Originals and 5 copies provided for children, one copy to [facility] chart for permanent record. Patient will be reviewed in Patient Care Conference tomorrow, anticipate setting a target discharge date.
[2020-05-24] MEDS: TAMSULOSIN 0.4 MG (FLOMAX) CAP PO SCH (17:10)
[2020-05-24 18:05] VITALS: BP 144/67
[2020-05-24] MEDS: MELATONIN 3 MG TABLET PO PRN (19:49)
[2020-05-25 06:07] VITALS: BP 130/59
[2020-05-25] MEDS: inSUlin ASPART (NovoLOG) 1 UNIT/0.01 ML (CHARGE PER UNIT) SC SCH ×2 (06:14→16:50)
[2020-05-25] MEDS: BETHANECHOL 25 MG (URECHOLINE) TAB PO SCH ×4 (06:27→21:30)
--- NOTE | 2020-05-25 07:09 | PM&R Progress Note ---
Subjective HPI/CC On Admission Date Seen by Provider: May 25, 2020 Time Seen by Provider: 09:30 Subjective/Events-last exam 05/25/20: Pt doing pretty well James is out, will evaluate whether she can void or not on her own Urocholine is at 50mg AC and HS Bowels are really moving well 05/24/20: Pt doing pretty well Re-inserted james due to retention Yeast infection will be managed with Diflucan and Monistat cream 05/23/20: Pt still doing pretty well Participation in therapy varies Cognition is an issue Overall doing well enough to remain stable 05/22/20: James cath still in place Urecholine 50mg dose now BM today 05/21/20: Likely will need catheter replaced No pain reported Feeder maintained adequate consumption 05/20/20: Patient about the same Requires a feeder to eat No pain reported Confusion is a limitation 05/19/20: Pt has varying participation with PT and OT Accu cheks changed to BID Will monitor pt closely Denies any pain Is a feeder 05/18/20: Re inserted the james since urinary retention continued Increasing oral fluids Urecholine was increased dose barron Bowels are moving 05/17/20: Xanax given last night Bowels moved yesterday Refusing to eat supper or breakfast today Agitated a bit today Post-void residual had 238 Hadnt voided since discontinued the cath yesterday 05/16/20: Dr. Houston will discontinue the catheter and evaluate voiding trial today Flomax and Urecholine maintained Bowels are moving Very difficult to recover from catastrophic stroke 05/15/20: Patient participating with therapy No pain reported Dr Houston consulted for james catheter 05/14/20: Patient denies pain Working well with structured therapies James cath still in place will need to DC soon Working on BM regimen Patient doing well Settling in well No pain reported Working with PT OT and ST Eating a bit more without aspiration No falls Checked meds and labs Conferred with RN Reviewed therapy notes Review of Systems General: Fatigue, Malaise Neurological: Weakness, Incoordination, Confusion Objective Exam Vital Signs Vital Signs Date Time Temp Pulse Resp B/P (MAP) Pulse Ox O2 Delivery O2 Flow Rate FiO2 05/25/20 20:30 95 Room Air 05/25/20 16:00 36.3 67 14 134/61 (85) Capillary Refill : Less Than 3 Seconds General Appearance: No Apparent Distress, Anxious, Chronically ill, Thin HEENT: PERRL/EOMI, Normal ENT Inspection, Pharynx Normal Neck: Full Range of Motion, Normal Inspection, Non Tender, Supple, Carotid Bruit Respiratory: Chest Non Tender, Lungs Clear, No Accessory Muscle Use, No Respiratory Distress, Decreased Breath Sounds Cardiovascular: Regular Rate, Rhythm, No Edema, No Gallop, No JVD, No Murmur, Normal Peripheral Pulses Gastrointestinal: Normal Bowel Sounds, No Organomegaly, No Pulsatile Mass, Non Tender, Soft Back: Normal Inspection, No CVA Tenderness, No Vertebral Tenderness Extremity: Normal Capillary Refill, Normal Inspection, Normal Range of Motion (except right sided weakness), Non Tender, No Calf Tenderness, No Pedal Edema Neurologic/Psychiatric: Alert, No Motor/Sensory Deficits, Normal Mood/Affect, Abnormal cardiovascular invasive specialist II-XII, Aphasia, Facial Droop, Motor Weakness (right sided flaccidi ty) Skin: Normal Color, Warm/Dry Lymphatic: No Adenopathy Results/Procedures Lab Patient resulted labs reviewed. FIM Transfers Therapy Code Descriptions/Definitions Functional [place] Measure: 0=Not Assessed/NA 4=Minimal Assistance 1=Total Assistance 5=Supervision or Setup 2=Maximal Assistance 6=Modified [place] 3=Moderate Assistance 7=Complete IndependenceSCALE: Activities may be completed with or without assistive devices. 7-Gyuidriygt-ukqzgdk completes the activity by him/herself with no assistance from a helper. 5-Set-up or Clean-up Assistance-helper sets up or cleans up; patient completes activity. [place] assists only prior to or following the activity. 4-Supervision or Touching Assistance-helper provides verbal cues and/or touching/steadying and/or contact guard assistance as patient completes activity. Assistance may be provided throughout the activity or intermittently. 3-Partial/Moderate Assistance-helper does LESS THAN HALF the effort. [place] lifts, holds or supports trunk or limbs, but provides less than half the effort. 2-Substantial/Maximal Assistance-helper does MORE THAN HALF the effort. [place] lifts or holds trunk or limbs and provides more than half the effort. 8-Fswmbioot-hfldqn does ALL the effort. Patient does none of the effort to complete the activity. Or, the assistance of 2 or more helpers is required for the patient to complete the activity. If activity was not attempted, code reason: 7-Patient Refused. 9-Not Applicable-not attempted and the patient did not perform the activity before the current illness, exacerbation or injury. 10-Not Attempted due to Environmental Limitations-(lack of equipment, weather restraints, etc.). 88-Not Attempted due to Medical Conditions or Safety Concerns. Roll Left to Right (QC): 2 Sit to Lying (QC): 4 (CGA with cues for sequencing and safety. ) Sit to Stand (QC): 4 Chair/Aku-eb-Ugtnl Xfer(QC): 3 (Performed x 3 reps. ) Car Transfer (QC): 3 Gait Training Does the Patient Walk?: Yes Distance: 50' Walk 10 feet (QC): 3 Walk 50 ft with 2 Turns(QC): 3 Walk 150 ft (QC): 88 Walking 10ft/uneven surface-QC: 88 Gait Persons Needed: 1 Gait Assistive Device: Walker Platform Wheelchair Training Distance: 150'x3 Wheel 50 ft with 2 turns (QC): 3 (Cues for task completing and min assist to propel) Wheel 150 ft (QC): 2 Stair Training 1 Step (curb) (QC): 88 4 Steps (QC): 88 12 Steps (QC): 88 Balance Picking up an Object (QC): 88 ADL-Treatment Eating (QC): 5 Oral Hygiene (QC): 4 (SBA and constant cues to brush teeth while seated at sink.) Bathing Location: L Arm, L Upper Leg, R Upper Leg, Chest, Abdomen Shower/Bathe Self (QC): 2 (Max assist overall. Pt. is able to wash her chest and top of her legs. OT washes under each arm and under breasts, as well as rear lopez area and bilateral feet. Pt. 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 Ensure adequate anticoagulation 2. PT, OT, and CAR CUSTOMIZER eval's and treat 3. Oxygen via NC- wean as tolerated 4. Resume Home medications 5. Fall precautions 6. Dietary consult 7. DVT prophylaxis 05/13/20: Patient participating well No pain reported Continue current meds Advance diet 05/14/20: James DC soon Continue home meds Therapies to continue protocol 05/15/20: Dr Houston appreciated Monitor BP Monitor labs 05/16/20: Bladder meds Appreciate Dr Houston PT OT ST 05/17/20: Voiding trial Monitor closely Variable moods 05/18/20: Monitor BP Encourage PO intake James cath management 05/19/20: Encourage participation with therapies Monitor james cath 05/20/20: Monitor closely Bladder management 05/21/20: Monitor closely Cath maintained? 05/22/20: Cath in place Check labs in am Increased dose of Urecholine 05/23/20: Monitor bladder function Increased dose of Urecholine 05/24/20: Maintain james catheter IRF protocol Family evaluating DC plans 05/25/20: DC next week James cath in place now Monitor for falls (1) CVA (cerebral vascular accident) (2) Dysarthria (3) Dysphagia (4) PEG (percutaneous endoscopic gastrostomy) status (5) Expressive aphasia (6) Smoker (7) COPD (chronic obstructive pulmonary disease) (8) CAD (coronary artery disease) (9) Hx of CABG (10) James catheter in place (11) Retention of urine BECKI WAGNER DO May 25, 2020 07:09
--- NOTE | 2020-05-25 08:56 | Cardiology Progress Note ---
Subjective Date Seen by Provider: May 25, 2020 Time Seen by Provider: 08:15 Subjective/Events-last exam Patient sitting up in chair, no new complaints. Denies any chest pain or dy spnea. Review of Systems General: No Chills, No Night Sweats, No Fatigue, No Malaise, No Appetite, No Other HEENT: No Head Aches, No Visual Changes, No Eye Pain, No Ear Pain, No Dysphasia, No Sinus Congestion, No Post Nasal Drip, No Sore Throat, No Other Pulmonary: No Dyspnea, No Cough, No Pleuritic Chest Pain, No Other Cardiovascular: No: Chest Pain, Palpitations, Orthopnea, Paroxysmal Noc. Dyspnea, Edema, Lt Headedness, Other Objective-Cardiology Exam Last Set of Vital Signs Vital Signs 05/25/20 06:07 Temp 36.4 Pulse 80 Resp 18 B/P (MAP) 130/59 (82) Pulse Ox 94 O2 Delivery Room Air Capillary Refill : Less Than 3 Seconds I&O Intake and Output 05/25/20 00:00 Intake Total 1160 ml Output Total 1435 ml Balance -275 ml Intake Oral 1160 ml Output Urine Total 1435 ml # Bowel Movements 4 General: Alert, Oriented X3, Cooperative HEENT: Atraumatic, PERRLA Neck: Supple, No JVD, No Thyromegaly Lungs: Clear to Auscultation, Normal Air Movement Heart: Regular Rate, Normal S1, Normal S2, No Murmurs Abdomen: Normal Bowel Sounds, Soft, No Tenderness, No Hepatosplenomegaly, No Masses Extremities: No Clubbing, No Cyanosis, No Edema, Normal Pulses, No Tenderness/Swelling Skin: No Rashes, No Breakdown, No Significant Lesion Neuro: Normal Gait, Normal Speech, Strength at 5/5 X4 Ext, Normal Tone, Sensation Intact Psych/Mental Status: Mental Status NL, Mood NL A/P-Cardiology Admission Diagnosis CVA Coronary artery disease Hypertension Hyperlipidemia Assessment/Plan Status post CVA post CABG with residual right hemiparesis, receiving PT/OT, on Plavix and ASA. Coronary artery disease status post CABG 3. Continue to monitor at this time. Hypertension, controlled, continue to monitor Hyperlipidemia, monitor lipids Questionable peripheral arterial disease with ischemic event after her bypass has improved after conservative management, continue on Plavix Diabetes mellitus, followed and managed by primary care physician Debility, receiving physical therapy Patient was seen and evaluated with Meenakshi, examination performed, management plan was discussed, agree with the current scribed note, I made few changes to the note using Italic font Patient was seen on this I sitting comfortably, no new complaint Still having some slurred speech Continue to monitor blood pressure and lipids, no changes are recommended Clinical Quality Measures DVT/VTE Risk/Contraindication: Risk Factor Score Per Nursin RFS Level Per Nursing on Admit: 4+=Very High MEENAKSHI CANADA May 25, 2020 8:56 am LOU KASPER MD May 25, 2020 2:12 pm
[2020-05-25] MEDS: ASPIRIN 81 MG CHEW (CHILDREN'S ASA) PO SCH (09:38)
[2020-05-25] MEDS: CLOPIDOGREL 75 MG (PLAVIX) TABLET PO SCH (09:38)
[2020-05-25] MEDS: fluCOnazole (DIFLUCAN) 100 MG TAB PO SCH (09:39)
[2020-05-25] MEDS: CARVEDILOL 3.125 MG (COREG) TABLET PO SCH ×2 (09:39→21:29)
[2020-05-25] MEDS: polyethylene glycoL POWDER 17 GM (MIRALAX) PACK PO SCH ×2 (09:39→21:30)
[2020-05-25] MEDS: FAMOTIDINE 20 MG (PEPCID) TABLET PO SCH (09:39)
[2020-05-25] MEDS: amLODIPine 5 MG (NORVASC) TAB PO SCH (09:39)
[2020-05-25] MEDS: SENNA W/DOCUSATE (SENOKOT S) TABLET PO SCH ×2 (09:39→21:30)
[2020-05-25] MEDS: DOCUSATE SODIUM 100 MG (COLACE) CAP PO SCH ×2 (09:39→21:30)
[2020-05-25] MEDS: MICONAZOLE NITRATE 2% CRM 30 GM TP SCH ×2 (10:08→21:30)
--- NOTE | 2020-05-25 11:00 | Speech Therapy Daily Note ---
Speech Daily Progress Note Subjective Date Seen by Provider: May 25, 2020 Time Seen by Provider: 00:30 Patient was sitting up in her recliner drinking coffee when I entered her room. Patient was alert and participated well. Objective Patient completed a series of "what's wrong with this picture?" with scenarios she may encounter with 80% given maximum cues. Assessment Assessment Current Status: Good Progress Treatment Plan Continue Plan of Care Speech Short Term Goals Short Term Goals Short Term Goals 1) The patient will complete cognitive tasks related to memory, safety awareness and problem solving at 80% with minimal cues. 2) The patient will complete speech tasks to improve intelligibility at 80% with minimal cues. 3) The patient will complete confrontational naming tasks at 90% with minimal cues. 4) The patient will complete OME for improved oral status for safe oral intake at 80% or greater with minimal cues. Speech Blow Mold Technician Goals Senior Care Goals Patient will improve communication abilities and safe oral intake in order to return to prior level. Speech-Plan Patient/Family Goals Patient/Family Goals: Patient will be discharging to live with her daughter as planned. Treatment Plan Speech Therapy Treatment Plan: Continue Plan of Care Treatment Duration: May 25, 2020 Frequency: 4 times per week (Patient will receive ST 4-5x per week) Estimated Hrs Per Day: .5 hour per day Rehab Potential: Fair Barriers to Learning: Patient's recent CVA, expressive aphasia Pt/Family Agrees to Plan: Yes Safety Risks/Education Teaching Recipient: Patient Teaching Methods: Demonstration, Discussion Response to Teaching: Verbalize Understanding, Return Demonstration Education Topics Provided: Continued safety upon her discharge Time Speech Therapy Time In: 08:30 Speech Therapy Time Out: 09:00 Total Billed Time: 30 Billed Treatment Time JEWEL Dubois SLTS No [place], BETH[address] ST May 25, 2020 11:00
--- NOTE | 2020-05-25 11:55 | Physical Therapy Daily Note ---
PT Daily Note-Current Subjective Pt sitting in recliner upon arrival. Pt agrees to PT. Pain Location: No Pain Reported Mental Status Patient Orientation: Person, Place Transfers SCALE: Activities may be completed with or without assistive devices. 9-Dfaomnwzrv-omodsgs completes the activity by him/herself with no assistance from a helper. 5-Set-up or Clean-up Assistance-helper sets up or cleans up; patient completes activity. [place] assists only prior to or following the activity. 4-Supervision or Touching Assistance-helper provides verbal cues and/or touching/steadying and/or contact guard assistance as patient completes activity. Assistance may be provided throughout the activity or intermittently. 3-Partial/Moderate Assistance-helper does LESS THAN HALF the effort. [place] lifts, holds or supports trunk or limbs, but provides less than half the effort. 2-Substantial/Maximal Assistance-helper does MORE THAN HALF the effort. [place] lifts or holds trunk or limbs and provides more than half the effort. 7-Yhedgszmj-zrzquq does ALL the effort. Patient does none of the effort to complete the activity. Or, the assistance of 2 or more helpers is required for the patient to complete the activity. If activity was not attempted, code reason: 7-Patient Refused. 9-Not Applicable-not attempted and the patient did not perform the activity before the current illness, exacerbation or injury. 10-Not Attempted due to Environmental Limitations-(lack of equipment, weather restraints, etc.). 88-Not Attempted due to Medical Conditions or Safety Concerns. Sit to Stand (QC): 5 Weight Bearing Right Lower Extremity: Right Full Weight Bearing Left Lower Extremity: Left Full Weight Bearing Wheelchair Training Does the Pt Use a Wheelchair?: Yes Wheel 50 ft with 2 turns (QC): 5 Wheel 150 ft (QC): 5 Type of Wheelchair: Manual Exercises Seated Therapy Exercises: Ankle pumps, Long arc quads, Hip flexion, Kicking activity, Glut set Seated Reps: 15 NuStep Minutes: 5 NuStep Workload: 2 Treatments TF from recliner to [facility] via SPT. Propels [facility] in hallway and to Therapy Gym. Uses NuStep until fatigued then TF back to [facility]. Pt completes Seated Ex then returns to room via [facility]. TF to recliner and resting at end of tx, all needs met & call light in hand. Assessment Current Status: Good Progress Pt is more independent with TF including SPT from chair to [facility] and back. PT Short Term Goals Short Term Goals Time Frame: May 19, 2020 Roll Left & Right: 4 Sit to lyin (met) Lying to sitting on side of be: 3 Chair/ifc-qy-rdaka transfer: 3 (met) Walk 10 feet: 3 Does pt use a wc or scooter: Yes Wheel 50ft w/2 turns: 3 Wheel 150 feet: 3 PT Usp Goals Vice President Of Contracts Goals PT Vice President Of Contracts Goals Time Frame: Jun 02, 2020 Roll Left & Right (QC): 6 Sit to Lying (QC): 6 Lying-Sitting on Side/Bed(QC): 6 Sit to Stand (QC): 4 Chair/Pgt-yf-Msjnd Xfer(QC): 4 Toilet Transfer (QC): 4 Car Transfer (QC): 4 Does the Patient Walk: Yes Walk 10 feet (QC): 3 Walk 50ft with 2 Turns (QC): 3 Walk 150 ft (QC): 88 Walking 10ft on Uneven Surface: 3 1 Step (curb) (QC): 3 4 Steps (QC): 88 12 Steps (QC): 88 Picking up an Object (QC): 88 Does the Pt use WC or Scooter?: Yes Wheel 50 feet with 2 turns (QC: 6 Wheel 150 feet: 6 PT Plan Problem List Problem List: Activity Tolerance, Functional Strength Treatment/Plan Treatment Plan: Continue Plan of Care Treatment Plan: Bed Mobility, Education, Functional Activity Robbin, Functional Strength, Group Therapy, Gait, Safety, Therapeutic Exercise, Transfers Treatment Duration: May 13, 2020 Frequency: At least 5 of 7 days/Wk (IRF) Estimated Hrs Per Day: 1.5 hours per day Patient and/or Family Agrees t: Yes Safety Risks/Education Patient Education: Transfer Techniques, Correct Positioning, W/C Management, Safety Issues Teaching Recipient: Patient Teaching Methods: Discussion Response to Teaching: Verbalize Understanding Time/GCodes Time In: 1100 Time Out: 1145 Total Billed Treatment Time: 45 Total Billed Treatment 1, [facility] (15m), EX (20m) & FA (10m) JONATHAN KESSLER FINANCIAL DIRECTOR May 25, 2020 11:55
--- NOTE | 2020-05-25 12:30 | NUR ---
ASSISTED ONTO BEDSIDE COMMODE AND VOIDED. THERAPY CAME IN AND TOOK PT TO THERAPY UNABLE TO GET POST VOID SCAN AT THIS TIME. @1530 ASSISTED PT BACK ONTO BEDSIDE COMMODE PT VOIDED AGAIN, POST VOID BLADDER SCAN 0CC. ANDREA HERE, UPDATED HIM.
--- NOTE | 2020-05-25 12:47 | Occupational Ther Daily Note ---
OT Current Status-Daily Note Subjective No pain reported. Appearance Pt. up in chair, holding coffee cup in left hand. Alert and agrees to work with OT. Mental Status/Objective Patient Orientation: Person ADL-Treatment Therapy Code Descriptions/Definitions Functional [place] Measure: 0=Not Assessed/NA 4=Minimal Assistance 1=Total Assistance 5=Supervision or Setup 2=Maximal Assistance 6=Modified [place] 3=Moderate Assistance 7=Complete IndependenceSCALE: Activities may be completed with or without assistive devices. 0-Uwymjrlgql-lfhqqbk completes the activity by him/herself with no assistance from a helper. 5-Set-up or Clean-up Assistance-helper sets up or cleans up; patient completes activity. [place] assists only prior to or following the activity. 4-Supervision or Touching Assistance-helper provides verbal cues and/or touching/steadying and/or contact guard assistance as patient completes activity. Assistance may be provided throughout the activity or intermittently. 3-Partial/Moderate Assistance-helper does LESS THAN HALF the effort. [place] lifts, holds or supports trunk or limbs, but provides less than half the effort. 2-Substantial/Maximal Assistance-helper does MORE THAN HALF the effort. [place] lifts or holds trunk or limbs and provides more than half the effort. 4-Vsmrhhixe-mqozpt does ALL the effort. Patient does none of the effort to complete the activity. Or, the assistance of 2 or more helpers is required for the patient to complete the activity. If activity was not attempted, code reason: 7-Patient Refused. 9-Not Applicable-not attempted and the patient did not perform the activity before the current illness, exacerbation or injury. 10-Not Attempted due to Environmental Limitations-(lack of equipment, weather restraints, etc.). 88-Not Attempted due to Medical Conditions or Safety Concerns. Oral Hygiene (QC): 4 (SBA and constant cues to brush teeth. Pt. picks up brush at sink level seated. Does not know what to do with it. Does not initiate turning on water or picking up paste. Pt. puts brush in her mouth. OT turns on water and places tooth paste on brush. Pt. brushes teeth, but continues to require cues to spit and then rinse mouth.) Shower/Bathe Self (QC): 2 (Pt. agrees to shower. She is able to wash chest and upper legs. OT washes all other parts for her. Noted pt. incontinent of stool. Dependent for lopez care.) Upper Body Dressing (QC): 2 (Pt. is unable to process steps and cues of how to sequence steps of doffing/donning shirt.) Lower Body Dressing (QC): 2 (Pt. requires max assist to don brief and pants.) On/Off Footwear: 2 Toileting Hygiene (QC): 1 Other Treatment Pt. agrees to shower. Noted pt. has made improvement in all transfers. Pt. able to stand and pivot to wheelchair with min assist. Taken to bathroom where pt. completed ADLs in shower and then oral care at sink. Pt. then taken to therapy gym. Encouraged pt. to participate in bilateral UE activities for crossing midline, addressing right side, visually looking to right, and following cues. Pt. is able to participate with max cues and [place] assist at times. Pt. is able to use right UE, but movement is not purposeful. Pt. taken back to room and transfers to reclining chair with min assist. All needs met. Education OT Patient Education: Correct positioning, Exercise program, Modified ADL techniques, Progress toward Goal/Update tx plan, Purpose of tx/functional activities, Reviewed precautions, Rehab process, Transfer techniques Teaching Recipient: Patient Teaching Methods: Demonstration, Discussion Response to Teaching: Verbalize Understanding, Reinforcement Needed OT Short Term Goals Short Term Goals Time Frame: May 26, 2020 Eatin Oral hygiene: 3 Toileting hygiene: 3 Shower/bathe self: 3 Upper body dressin Lower body dressin Putting on/taking off footwear: 3 OT Nursing Home Goals Store Hand Goals Time Frame: Jun 09, 2020 Eating (QC): 4 Oral Hygiene (QC): 4 Toileting Hygiene (QC): 3 Shower/Bathe Self (QC): 3 Upper Body Dressing (QC): 5 Lower Body Dressing (QC): 4 On/Off Footwear (QC): 4 Additional Goals: 1-Demonstrate ADL Tasks, 2-Verbalize Understanding, 3- ImproveStrength/Robbin 1=Demonstrate adherence to instructed precautions during ADL tasks. 2=Patient will verbalize/demonstrate understanding of assistive devices/modifications for ADL. 3=Patient will improve strength/tolerance for activity to enable patient to perform ADL's. OT Education/Plan Problem List/Assessment Assessment: Decreased Activ Tolerance, Decreased UE Strength, Impaired Coordination, Impaired Funct Balance, Impaired I ADL's, Impaired Self-Care Skills, Restricted Funct UE ROM, Visual-Perceptual Deficit Visual perceptual issues difficult to pinpoint due to severe global aphasia. Discharge Recommendations Plan/Recommendations: Continue POC Therapy Discharge Recommendati: Scheduled Assistance, Home & Family, Post Acute OT Treatment Plan/Plan of Care Treatment,Training & Education: Yes Patient would benefit from OT for education, treatment and training to promote independence in ADL's, mobility, safety and/or upper extremity function for ADL's. Plan of Care: ADL Retraining, Caregiver Training, Cognitive Retraining, Functional Mobility, Group Exercise/Act as Ind, UE Funct Exercise/Act, UE Neuromus Re-Ed/Coord, Visual/Perceptual Retrain, W/C Management Training Treatment Duration: Jun 09, 2020 Frequency: At least 5 of 7 days/Wk (IRF) Estimated Hrs Per Day: 1.5 hours per day Agreement: Yes Rehab Potential: Fair Time/GCodes Start Time: 09:00 Stop Time: 10:15 Total Time Billed (hr/min): 75 Billed Treatment Time 1, ADL x 45minutes, FA x 30minutes RALPH LUO OT May 25, 2020 12:47
--- NOTE | 2020-05-25 13:55 | Physical Therapy Daily Note ---
PT Daily Note-Current Subjective Pt. pleasant, "ok baby" smiling at therapist. Pain Location: No Pain Reported Mental Status Patient Orientation: Non-Verbal/Aphasic Attachments: Other-See Comments (mask) Transfers SCALE: Activities may be completed with or without assistive devices. 8-Bclepgutju-pofxbdk completes the activity by him/herself with no assistance from a helper. 5-Set-up or Clean-up Assistance-helper sets up or cleans up; patient completes activity. [place] assists only prior to or following the activity. 4-Supervision or Touching Assistance-helper provides verbal cues and/or touching/steadying and/or contact guard assistance as patient completes activity. Assistance may be provided throughout the activity or intermittently. 3-Partial/Moderate Assistance-helper does LESS THAN HALF the effort. [place] lifts, holds or supports trunk or limbs, but provides less than half the effort. 2-Substantial/Maximal Assistance-helper does MORE THAN HALF the effort. [place] lifts or holds trunk or limbs and provides more than half the effort. 7-Khwfkolvp-mjpvhi does ALL the effort. Patient does none of the effort to complete the activity. Or, the assistance of 2 or more helpers is required for the patient to complete the activity. If activity was not attempted, code reason: 7-Patient Refused. 9-Not Applicable-not attempted and the patient did not perform the activity before the current illness, exacerbation or injury. 10-Not Attempted due to Environmental Limitations-(lack of equipment, weather restraints, etc.). 88-Not Attempted due to Medical Conditions or Safety Concerns. Sit to Stand (QC): 4 Chair/Evm-uu-Fazxz Xfer(QC): 4 SPTs recliner to w/c to nustep to w/c to recliner all min to CGA going toward left or right Weight Bearing Right Lower Extremity: Right Full Weight Bearing Left Lower Extremity: Left Full Weight Bearing Wheelchair Training Does the Pt Use a Wheelchair?: Yes Type of Wheelchair: Manual [id number], SBA to CGA and instruction alecia for braking and turns Exercises NuStep Minutes: 8 NuStep Workload: 1 Treatments took 2 min break during Nustep Assessment Current Status: Good Progress PT Short Term Goals Short Term Goals Time Frame: May 19, 2020 Roll Left & Right: 4 Sit to lyin (met) Lying to sitting on side of be: 3 Chair/mjs-sc-pvnpp transfer: 3 (met) Walk 10 feet: 3 Does pt use a wc or scooter: Yes Wheel 50ft w/2 turns: 3 Wheel 150 feet: 3 PT Halfway Goals Halfway Goals PT Signal Processing Engineer Goals Time Frame: Jun 02, 2020 Roll Left & Right (QC): 6 Sit to Lying (QC): 6 Lying-Sitting on Side/Bed(QC): 6 Sit to Stand (QC): 4 Chair/Cga-ye-Fnkqq Xfer(QC): 4 Toilet Transfer (QC): 4 Car Transfer (QC): 4 Does the Patient Walk: Yes Walk 10 feet (QC): 3 Walk 50ft with 2 Turns (QC): 3 Walk 150 ft (QC): 88 Walking 10ft on Uneven Surface: 3 1 Step (curb) (QC): 3 4 Steps (QC): 88 12 Steps (QC): 88 Picking up an Object (QC): 88 Does the Pt use WC or Scooter?: Yes Wheel 50 feet with 2 turns (QC: 6 Wheel 150 feet: 6 PT Plan Treatment/Plan Treatment Plan: Continue Plan of Care Treatment Plan: Bed Mobility, Education, Functional Activity Robbin, Functional Strength, Group Therapy, Gait, Safety, Therapeutic Exercise, Transfers Treatment Duration: May 13, 2020 Frequency: At least 5 of 7 days/Wk (IRF) Estimated Hrs Per Day: 1.5 hours per day Patient and/or Family Agrees t: Yes Safety Risks/Education Patient Education: Transfer Techniques, Correct Positioning, W/C Management Teaching Recipient: Patient Teaching Methods: Demonstration, Discussion Response to Teaching: Verbalize Understanding, Return Demonstration, Reinforcement Needed Time/GCodes Time In: 1320 Time Out: 1350 Total Billed Treatment Time: 30 Total Billed Treatment 1,FA20m,EX10m JANA OROSCO HAND CARVER May 25, 2020 13:55
[2020-05-25 16:00] VITALS: BP 134/61
--- NOTE | 2020-05-25 17:09 | Progress Note - Urology ---
Progress Note-Urology Progress Notes/Assess & Plan Progress/Assessment & Plan VOIDING WELL ON HER KAPIL. EMPTIES WELL. TOLERATES MEDS WELL Final Diagnosis RETENTION (RESOLVING) TANIA MENDEZ MD May 25, 2020 17:09
[2020-05-25] MEDS: TAMSULOSIN 0.4 MG (FLOMAX) CAP PO SCH (17:43)
--- NOTE | 2020-05-25 18:17 | NUR ---
CM/SS PATIENT CARE CONFERENCE Reviewed Summary with patient and provided a copy to her children via email. All are in agreement to the target discharge date of Wednesday, June 03, 2020. HHC: Will be arranged with patient/family choice agency in service area for RN PT OT . DME: [employer] partnering with [place] for wheelchair through Medicare and [facility] with [employer] private pay. Daughter Rula informed video games storywriter today they already have the BSC and tub transfer bench. Rula has communicated with resources for private pay caregivers without anything finalized. Continue post hospital care planning.
[2020-05-25] MEDS: RT-ALBUTEROL/IPRATROPIUM 3 ML (DUONEB) VIAL IH SCH (18:27)
[2020-05-25] MEDS: MELATONIN 3 MG TABLET PO PRN (21:30)
--- NOTE | 2020-05-26 06:10 | PM&R Progress Note ---
Subjective HPI/CC On Admission Date Seen by Provider: May 26, 2020 Time Seen by Provider: 09:30 Subjective/Events-last exam 05/26/20: Voiding well now No catheter now Made her way to the commode on her own without help last night and urinated in her clothes on top of the commode No incontinence usually 05/25/20: Pt doing pretty well James is out, will evaluate whether she can void or not on her own Urocholine is at 50mg AC and HS Bowels are really moving well 05/24/20: Pt doing pretty well Re-inserted james due to retention Yeast infection will be managed with Diflucan and Monistat cream 05/23/20: Pt still doing pretty well Participation in therapy varies Cognition is an issue Overall doing well enough to remain stable 05/22/20: James cath still in place Urecholine 50mg dose now BM today 05/21/20: Likely will need catheter replaced No pain reported Feeder maintained adequate consumption 05/20/20: Patient about the same Requires a feeder to eat No pain reported Confusion is a limitation 05/19/20: Pt has varying participation with PT and OT Accu cheks changed to BID Will monitor pt closely Denies any pain Is a feeder 05/18/20: Re inserted the james since urinary retention continued Increasing oral fluids Urecholine was increased dose barron Bowels are moving 05/17/20: Xanax given last night Bowels moved yesterday Refusing to eat supper or breakfast today Agitated a bit today Post-void residual had 238 Hadnt voided since discontinued the cath yesterday 05/16/20: Dr. Houston will discontinue the catheter and evaluate voiding trial today Flomax and Urecholine maintained Bowels are moving Very difficult to recover from catastrophic stroke 05/15/20: Patient participating with therapy No pain reported Dr Houston consulted for james catheter 05/14/20: Patient denies pain Working well with structured therapies James cath still in place will need to DC soon Working on BM regimen Patient doing well Settling in well No pain reported Working with PT OT and ST Eating a bit more without aspiration No falls Checked meds and labs Conferred with RN Reviewed therapy notes Review of Systems Neurological: Weakness, Incoordination, Confusion Objective Exam Vital Signs Vital Signs Date Time Temp Pulse Resp B/P (MAP) Pulse Ox O2 Delivery O2 Flow Rate FiO2 05/26/20 18:38 97 Room Air 05/26/20 17:20 36.5 69 18 107/58 (74) Capillary Refill : Less Than 3 Seconds General Appearance: No Apparent Distress, Anxious, Chronically ill, Thin HEENT: PERRL/EOMI, Normal ENT Inspection, Pharynx Normal Neck: Full Range of Motion, Normal Inspection, Non Tender, Supple, Carotid Bruit Respiratory: Chest Non Tender, Lungs Clear, No Accessory Muscle Use, No Respiratory Distress, Decreased Breath Sounds Cardiovascular: Regular Rate, Rhythm, No Edema, No Gallop, No JVD, No Murmur, Normal Peripheral Pulses Gastrointestinal: Normal Bowel Sounds, No Organomegaly, No Pulsatile Mass, Non Tender, Soft Back: Normal Inspection, No CVA Tenderness, No Vertebral Tenderness Extremity: Normal Capillary Refill, Normal Inspection, Normal Range of Motion (except right sided weakness), Non Tender, No Calf Tenderness, No Pedal Edema Neurologic/Psychiatric: Alert, No Motor/Sensory Deficits, Normal Mood/Affect, Abnormal voucher examiner II-XII, Aphasia, Facial Droop, Motor Weakness (right sided fl accidity) Skin: Normal Color, Warm/Dry Lymphatic: No Adenopathy Results/Procedures Lab Patient resulted labs reviewed. FIM Transfers Therapy Code Descriptions/Definitions Functional [place] Measure: 0=Not Assessed/NA 4=Minimal Assistance 1=Total Assistance 5=Supervision or Setup 2=Maximal Assistance 6=Modified [place] 3=Moderate Assistance 7=Complete IndependenceSCALE: Activities may be completed with or without assistive devices. 3-Euyohhmwrg-uliryao completes the activity by him/herself with no assistance from a helper. 5-Set-up or Clean-up Assistance-helper sets up or cleans up; patient completes activity. [place] assists only prior to or following the activity. 4-Supervision or Touching Assistance-helper provides verbal cues and/or touching/steadying and/or contact guard assistance as patient completes activity. Assistance may be provided throughout the activity or intermittently. 3-Partial/Moderate Assistance-helper does LESS THAN HALF the effort. [place] lifts, holds or supports trunk or limbs, but provides less than half the effort. 2-Substantial/Maximal Assistance-helper does MORE THAN HALF the effort. [place] lifts or holds trunk or limbs and provides more than half the effort. 0-Hbckznqbj-tpihhd does ALL the effort. Patient does none of the effort to complete the activity. Or, the assistance of 2 or more helpers is required for the patient to complete the activity. If activity was not attempted, code reason: 7-Patient Refused. 9-Not Applicable-not attempted and the patient did not perform the activity before the current illness, exacerbation or injury. 10-Not Attempted due to Environmental Limitations-(lack of equipment, weather restraints, etc.). 88-Not Attempted due to Medical Conditions or Safety Concerns. Roll Left to Right (QC): 2 Sit to Lying (QC): 4 (CGA with cues for sequencing and safety. ) Sit to Stand (QC): 4 Chair/Jxl-kt-Pjzpe Xfer(QC): 4 Car Transfer (QC): 3 Gait Training Does the Patient Walk?: Yes Distance: 50' Walk 10 feet (QC): 3 Walk 50 ft with 2 Turns(QC): 3 Walk 150 ft (QC): 88 Walking 10ft/uneven surface-QC: 88 Gait Persons Needed: 1 Gait Assistive Device: Walker Platform Wheelchair Training Does the Pt Use a Wheelchair?: Yes Distance: 150'x3 Wheel 50 ft with 2 turns (QC): 5 Wheel 150 ft (QC): 5 Type of Wheelchair: Manual Stair Training 1 Step (curb) (QC): 88 4 Steps (QC): 88 12 Steps (QC): 88 Balance Picking up an Object (QC): 88 ADL-Treatment Eating (QC): 5 Oral Hygiene (QC): 4 (SBA and constant cues to brush teeth. Pt. picks up brush at sink level seated. Does not know what to do with it. Does not initiate turning on water or picking up paste. Pt. puts brush in her mouth. OT turns on water and places tooth paste on brush. Pt. brushes teeth, but continues to require cues to spit and then rinse mouth.) Bathing Location: L Arm, L Upper Leg, R Upper Leg, Chest, Abdomen Shower/Bathe Self (QC): 2 (Pt. agrees to shower. She is able to wash chest and upper legs. OT washes all other parts for her. Noted pt. incontinent of stool. Dependent for lopez care.) Upper Body Dressing (QC): 2 (Pt. is unable to process steps and cues of how to sequence steps of doffing/donning shirt.) Lower Body Dressing (QC): 2 (Pt. 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 Ensure adequate anticoagulation 2. PT, OT, and OPERATING SYSTEMS PROGRAMMER eval's and treat 3. Oxygen via NC- wean as tolerated 4. Resume Home medications 5. Fall precautions 6. Dietary consult 7. DVT prophylaxis 05/13/20: Patient participating well No pain reported Continue current meds Advance diet 05/14/20: James DC soon Continue home meds Therapies to continue protocol 05/15/20: Dr Houston appreciated Monitor BP Monitor labs 05/16/20: Bladder meds Appreciate Dr Houston PT OT ST 05/17/20: Voiding trial Monitor closely Variable moods 05/18/20: Monitor BP Encourage PO intake James cath management 05/19/20: Encourage participation with therapies Monitor james cath 05/20/20: Monitor closely Bladder management 05/21/20: Monitor closely Cath maintained? 05/22/20: Cath in place Check labs in am Increased dose of Urecholine 05/23/20: Monitor bladder function Increased dose of Urecholine 05/24/20: Maintain james catheter IRF protocol Family evaluating DC plans 05/25/20: DC next week James cath in place now Monitor for falls 05/26/20: Voiding well without cath now Monitor closely (1) CVA (cerebral vascular accident) (2) Dysarthria (3) Dysphagia (4) PEG (percutaneous endoscopic gastrostomy) status (5) Expressive aphasia (6) Smoker (7) COPD (chronic obstructive pulmonary disease) (8) CAD (coronary artery disease) (9) Hx of CABG (10) James catheter in place (11) Retention of urine BECKI WAGNER DO May 26, 2020 06:10
[2020-05-26] MEDS: inSUlin ASPART (NovoLOG) 1 UNIT/0.01 ML (CHARGE PER UNIT) SC SCH ×2 (06:20→15:44)
[2020-05-26 06:38] VITALS: BP 138/60
[2020-05-26] MEDS: BETHANECHOL 25 MG (URECHOLINE) TAB PO SCH ×4 (06:51→21:35)
[2020-05-26 08:00] VITALS: BP 136/61
--- NOTE | 2020-05-26 08:00 | Occupational Ther Daily Note ---
OT Current Status-Daily Note Subjective No pain reported. Appearance Pt. in bed. Agrees to work with therapy. Mental Status/Objective Patient Orientation: Person ADL-Treatment Therapy Code Descriptions/Definitions Functional [place] Measure: 0=Not Assessed/NA 4=Minimal Assistance 1=Total Assistance 5=Supervision or Setup 2=Maximal Assistance 6=Modified [place] 3=Moderate Assistance 7=Complete IndependenceSCALE: Activities may be completed with or without assistive devices. 1-Elheqmzhrw-crpddqp completes the activity by him/herself with no assistance from a helper. 5-Set-up or Clean-up Assistance-helper sets up or cleans up; patient completes activity. [place] assists only prior to or following the activity. 4-Supervision or Touching Assistance-helper provides verbal cues and/or touching/steadying and/or contact guard assistance as patient completes activity. Assistance may be provided throughout the activity or intermittently. 3-Partial/Moderate Assistance-helper does LESS THAN HALF the effort. [place] lifts, holds or supports trunk or limbs, but provides less than half the effort. 2-Substantial/Maximal Assistance-helper does MORE THAN HALF the effort. [place] lifts or holds trunk or limbs and provides more than half the effort. 3-Vcogtvgha-kjdesf does ALL the effort. Patient does none of the effort to complete the activity. Or, the assistance of 2 or more helpers is required for the patient to complete the activity. If activity was not attempted, code reason: 7-Patient Refused. 9-Not Applicable-not attempted and the patient did not perform the activity before the current illness, exacerbation or injury. 10-Not Attempted due to Environmental Limitations-(lack of equipment, weather restraints, etc.). 88-Not Attempted due to Medical Conditions or Safety Concerns. Eating (QC): 4 Oral Hygiene (QC): 4 (SBA for complete set up and constant cues to sequence each step of brushing teeth seated at sink.) Upper Body Dressing (QC): 3 (Mod assist overall. Pt. able to doff shirt with SBA and cues, and able to don shirt with mod assist overall. Doing better today with this task.) Lower Body Dressing (QC): 2 (Max assist to thread bilateral LE into brief and pants. Pt. able to engage right UE more correctly today to attempt to use to don over hips in stance. Overall, requires assistance to thoroughly get over hips.) On/Off Footwear: 2 Toileting Hygiene (QC): 7 Toilet Transfer (QC): 7 (Pt. indicates at begining and end of treatment that she does not need to use bathroom.) Other Treatment Pt. seen this date for co-treatment with PT due to fatigue and need for higher level skilled activities of two therapists. OT engaged pt. in ADL skills while PT facilitated sitting balance and transfers during ADLs. After pt. dressed, brushed hair and teeth, transferred to wheelchair and worked on self propulsion. Pt. unable to sequence and understand efficient steps to move feet and left UE at same time to push chair. Engaged her in using feet only and this was difficult for her. Ambulated with walker with wheelchair follow, with min assist. Please see PT note for distance. Worked on right UE AROM and then AAROM activities as well as right LE exercises. Pt. becomes anxious and breathes harder when she is attempting to do something she is not sure of. Encouraged her to take deep breathes and rest. Pt. doing well overall. No other distress noted. Pt. taken back to room and transfers to chair with all needs met and chair alarm set. Education OT Patient Education: Correct positioning, Exercise program, Modified ADL techniques, Progress toward Goal/Update tx plan, Purpose of tx/functional activities, Reviewed precautions, Rehab process, Transfer techniques Teaching Recipient: Patient Teaching Methods: Demonstration, Discussion Response to Teaching: Verbalize Understanding, Reinforcement Needed OT Short Term Goals Short Term Goals Time Frame: May 26, 2020 Eatin Oral hygiene: 3 Toileting hygiene: 3 Shower/bathe self: 3 Upper body dressin Lower body dressin Putting on/taking off footwear: 3 OT Long-Term Goals Long-Term Goals Time Frame: Jun 09, 2020 Eating (QC): 4 Oral Hygiene (QC): 4 Toileting Hygiene (QC): 3 Shower/Bathe Self (QC): 3 Upper Body Dressing (QC): 5 Lower Body Dressing (QC): 4 On/Off Footwear (QC): 4 Additional Goals: 1-Demonstrate ADL Tasks, 2-Verbalize Understanding, 3- ImproveStrength/Robbin 1=Demonstrate adherence to instructed precautions during ADL tasks. 2=Patient will verbalize/demonstrate understanding of assistive devices/modifications for ADL. 3=Patient will improve strength/tolerance for activity to enable patient to perform ADL's. OT Education/Plan Problem List/Assessment Assessment: Decreased Activ Tolerance, Decreased Safety Aware, Decreased UE Strength, Dependent Transfers, Impaired Bed Mobility, Impaired Cognition, Impaired Coordination, Impaired Funct Balance, Impaired I ADL's, Impaired Self- Care Skills, Restricted Funct UE ROM, Visual-Perceptual Deficit Visual perceptual issues difficult to pinpoint due to severe global aphasia. Discharge Recommendations Plan/Recommendations: Continue POC Therapy Discharge Recommendati: 24 Hour Supervision, Home & Family, Post Acute OT Treatment Plan/Plan of Care Treatment,Training & Education: Yes Patient would benefit from OT for education, treatment and training to promote independence in ADL's, mobility, safety and/or upper extremity function for ADL's. Plan of Care: ADL Retraining, Caregiver Training, Cognitive Retraining, Functional Mobility, Group Exercise/Act as Ind, UE Funct Exercise/Act, UE Neuromus Re-Ed/Coord, Visual/Perceptual Retrain, W/C Management Training Treatment Duration: Jun 09, 2020 Frequency: At least 5 of 7 days/Wk (IRF) Estimated Hrs Per Day: 1.5 hours per day Agreement: Yes Rehab Potential: Fair Time/GCodes Start Time: 07:00 Stop Time: 08:00 Total Time Billed (hr/min): 60 Billed Treatment Time 1, ADL x 30minutes, FA x 15minutes, Ex x 15minutes RALPH LUO OT May 26, 2020 08:00
--- NOTE | 2020-05-26 08:01 | Physical Therapy Daily Note ---
PT Daily Note-Current Subjective Pt agreeable to PT. Smiles. Converses as she is able. Transfers SCALE: Activities may be completed with or without assistive devices. 2-Tgrtkoxcjw-ykjptoc completes the activity by him/herself with no assistance from a helper. 5-Set-up or Clean-up Assistance-helper sets up or cleans up; patient completes activity. [place] assists only prior to or following the activity. 4-Supervision or Touching Assistance-helper provides verbal cues and/or touching/steadying and/or contact guard assistance as patient completes activity. Assistance may be provided throughout the activity or intermittently. 3-Partial/Moderate Assistance-helper does LESS THAN HALF the effort. [place] lifts, holds or supports trunk or limbs, but provides less than half the effort. 2-Substantial/Maximal Assistance-helper does MORE THAN HALF the effort. [place] lifts or holds trunk or limbs and provides more than half the effort. 5-Pkpfflrwe-calbur does ALL the effort. Patient does none of the effort to complete the activity. Or, the assistance of 2 or more helpers is required for the patient to complete the activity. If activity was not attempted, code reason: 7-Patient Refused. 9-Not Applicable-not attempted and the patient did not perform the activity before the current illness, exacerbation or injury. 10-Not Attempted due to Environmental Limitations-(lack of equipment, weather restraints, etc.). 88-Not Attempted due to Medical Conditions or Safety Concerns. Lying to Sitting/Side of Bed(Q: 4 (SBA for safety but pt did not require VC) Sit to Stand (QC): 4 (CGA and heavy cues for hand placment and sequencig to maintain safety.) Chair/Sgs-um-Almoi Xfer(QC): 4 (CGA--reaches across chair to stabilize and turn.) Weight Bearing Right Lower Extremity: Right Full Weight Bearing Left Lower Extremity: Left Full Weight Bearing Gait Training Distance: 30 ft x 2 Gait Assistive Device: Walker Platform min assist with gait; CGA at gait belt and min assist to propel the walker; cues and assist to keep the walker going straight, cues to assist pt to stay inside the walker and for gait pattern and posture. Exercises Seated Therapy Exercises: Ankle pumps, Long arc quads Seated Reps: 15 Treatments Co treat with OT. Need for skill of 2 clinicians to address UE use for ADL completion as well as standing static/dynamic balance; functional sit to stand transfers; seated balance; Pt requires heavy cues for safety and sequencing. Pt performed dressing and light ADL care this visit and as OT addressed ADL activities, PT addressed the upright balance, safety, sequencing and completion of gross motor tasks. Pt often tries to go too fast and is at risk for falling therefore, 2 skilled clinicians can safely and effectively facilitate tasks in a controlled manner. Pt also worked on WC mobility and as OT addressed the cognitive aspect of sequencing and task breakdown, PT demonstrated use of LE and UE to propel. Pt in recliner with legs elevated, call light and chair alarm activited post treatment. Assessment Current Status: Good Progress Pt seemed to tire as the treatment went on with decreased attention to safety. However, SPT progressing, gait progressing and functional balance as she completes ADL's progressing. PT Short Term Goals Short Term Goals Time Frame: May 19, 2020 Roll Left & Right: 4 Sit to lyin (met) Lying to sitting on side of be: 3 Chair/sdb-vn-agxli transfer: 3 (met) Walk 10 feet: 3 (met) Does pt use a wc or scooter: Yes Wheel 50ft w/2 turns: 3 Wheel 150 feet: 3 PT Repairer Evaporator Goals [facility] Goals PT Repairer Evaporator Goals Time Frame: Jun 02, 2020 Roll Left & Right (QC): 6 Sit to Lying (QC): 6 Lying-Sitting on Side/Bed(QC): 6 Sit to Stand (QC): 4 Chair/Gei-fs-Jecbc Xfer(QC): 4 Toilet Transfer (QC): 4 Car Transfer (QC): 4 Does the Patient Walk: Yes Walk 10 feet (QC): 3 Walk 50ft with 2 Turns (QC): 3 Walk 150 ft (QC): 88 Walking 10ft on Uneven Surface: 3 1 Step (curb) (QC): 3 4 Steps (QC): 88 12 Steps (QC): 88 Picking up an Object (QC): 88 Does the Pt use WC or Scooter?: Yes Wheel 50 feet with 2 turns (QC: 6 Wheel 150 feet: 6 PT Plan Problem List Problem List: Activity Tolerance, Functional Strength, Safety, Balance, Gait, Transfer, Bed Mobility Treatment/Plan Treatment Plan: Continue Plan of Care Treatment Plan: Bed Mobility, Education, Functional Activity [place], Functional Strength, Group Therapy, Gait, Safety, Therapeutic Exercise, Transfers Treatment Duration: May 13, 2020 Frequency: At least 5 of 7 days/Wk (IRF) Estimated Hrs Per Day: 1.5 hours per day Patient and/or Family Agrees t: Yes Safety Risks/Education Patient Education: Transfer Techniques, Safety Issues Teaching Recipient: Patient Teaching Methods: Demonstration, Discussion Response to Teaching: Return Demonstration, Reinforcement Needed Discharge Recommendations Therapy Discharge Recommendati: Post Acute PT ([facility] PT) Time/GCodes Time In: 700 Time Out: 800 Total Billed Treatment Time: 60 Total Billed Treatment visit GT 15 WC 15 FA 30 Co treat with OT 60 MARGOT CHAVEZ PT May 26, 2020 08:01
[2020-05-26] MEDS: RT-ALBUTEROL/IPRATROPIUM 3 ML (DUONEB) VIAL IH SCH ×2 (08:06→18:38)
[2020-05-26] MEDS: RT-BUDESONIDE NEBS 0.5 MG/2ML (PULMICORT) AMP IH SCH ×2 (08:06→18:38)
[2020-05-26] MEDS: fluCOnazole (DIFLUCAN) 100 MG TAB PO SCH (08:40)
[2020-05-26] MEDS: ASPIRIN 81 MG CHEW (CHILDREN'S ASA) PO SCH (08:40)
[2020-05-26] MEDS: FAMOTIDINE 20 MG (PEPCID) TABLET PO SCH (08:40)
[2020-05-26] MEDS: CARVEDILOL 3.125 MG (COREG) TABLET PO SCH ×2 (08:40→21:35)
[2020-05-26] MEDS: amLODIPine 5 MG (NORVASC) TAB PO SCH (08:40)
[2020-05-26] MEDS: CLOPIDOGREL 75 MG (PLAVIX) TABLET PO SCH (08:41)
[2020-05-26] MEDS: SENNA W/DOCUSATE (SENOKOT S) TABLET PO SCH ×2 (08:45→21:39)
[2020-05-26] MEDS: DOCUSATE SODIUM 100 MG (COLACE) CAP PO SCH ×2 (08:45→21:38)
[2020-05-26] MEDS: polyethylene glycoL POWDER 17 GM (MIRALAX) PACK PO SCH ×2 (08:45→21:39)
[2020-05-26] MEDS: MICONAZOLE NITRATE 2% CRM 30 GM TP SCH ×2 (08:48→21:41)
--- NOTE | 2020-05-26 09:00 | NUR ---
APPEARS TO BE MORE CHEERFUL TODAY. TALKING MORE - STILL HAS EXPRESSIVE APHASIA. DENIES PAIN. FLUIDS ENCOURAGED.
--- NOTE | 2020-05-26 10:16 | Progress Note - Urology ---
Progress Note-Urology Progress Notes/Assess & Plan Progress/Assessment & Plan CONTINUES VOIDING ON OWN Final Diagnosis URINE RETENTION TANIA MENDEZ MD May 26, 2020 10:16
--- NOTE | 2020-05-26 12:18 | Therapy Group Daily Note ---
Therapy Daily Group Note Patient Education Topic Home Safety, Exercises Exercises LE Seated Exercise, Stretching, UE Exercise Session Ratio (pt:therapist): 4:1 Goal of Session: Home Safety Strategies Education on home safety techniques and strategies. Functional strengthening to progress functional mobility Goal Met for this Session: Yes Pt Benefit of Group: Contributions to Others, Increased Functional Safety Socialization; interactions with others who are experiencing time from home; masks worn and social distancing practiced. Other/Notes Pt laughed and interacted appropriately during group setting and seemed to enjoy the company of others. Pt participated well the ther ex with assist as needed to correctly perform each exercise. Start Time: 11:00 Stop Time: 12:00 Total Billed Treatment Time: 60 Total Billed Treatment visit GRP 60 MARGOT CHAVEZ PT May 26, 2020 12:18
[2020-05-26] MEDS: ALPRAZolam 0.25 MG (XANAX) TAB PO PRN (15:31)
[2020-05-26 17:20] VITALS: BP 107/58
[2020-05-26] MEDS: TAMSULOSIN 0.4 MG (FLOMAX) CAP PO SCH (17:49)
--- NOTE | 2020-05-26 19:26 | NUR ---
Bedside report received from ERNESTINA AVLIES, assume care of pt
--- NOTE | 2020-05-26 19:27 | NUR ---
Pt had face time with family, in good spirts after visit
--- NOTE | 2020-05-26 19:28 | NUR ---
bed alarm on side rails up x4
[2020-05-26 21:30] VITALS: BP 141/63
--- NOTE | 2020-05-26 21:35 | NUR ---
Pt refused Colace, Miralax & Senokot, pt still has difficulty expressing verbally her needs
[2020-05-26] MEDS: MELATONIN 3 MG TABLET PO PRN (21:36)
[2020-05-27 05:29] VITALS: BP 134/63
[2020-05-27] MEDS: inSUlin ASPART (NovoLOG) 1 UNIT/0.01 ML (CHARGE PER UNIT) SC SCH (06:34)
[2020-05-27] MEDS: BETHANECHOL 25 MG (URECHOLINE) TAB PO SCH ×4 (06:34→21:15)
--- NOTE | 2020-05-27 07:06 | PM&R Progress Note ---
Subjective HPI/CC On Admission Date Seen by Provider: May 27, 2020 Time Seen by Provider: 13:00 Subjective/Events-last exam 05/27/20: Improved status Feeding herself now Dramatic improvement since admit No incontinence now DC accucheck BID 05/26/20: Voiding well now No catheter now Made her way to the commode on her own without help last night and urinated in her clothes on top of the commode No incontinence usually 05/25/20: Pt doing pretty well James is out, will evaluate whether she can void or not on her own Urocholine is at 50mg AC and HS Bowels are really moving well 05/24/20: Pt doing pretty well Re-inserted james due to retention Yeast infection will be managed with Diflucan and Monistat cream 05/23/20: Pt still doing pretty well Participation in therapy varies Cognition is an issue Overall doing well enough to remain stable 05/22/20: James cath still in place Urecholine 50mg dose now BM today 05/21/20: Likely will need catheter replaced No pain reported Feeder maintained adequate consumption 05/20/20: Patient about the same Requires a feeder to eat No pain reported Confusion is a limitation 05/19/20: Pt has varying participation with PT and OT Accu cheks changed to BID Will monitor pt closely Denies any pain Is a feeder 05/18/20: Re inserted the james since urinary retention continued Increasing oral fluids Urecholine was increased dose barron Bowels are moving 05/17/20: Xanax given last night Bowels moved yesterday Refusing to eat supper or breakfast today Agitated a bit today Post-void residual had 238 Hadnt voided since discontinued the cath yesterday 05/16/20: Dr. Houston will discontinue the catheter and evaluate voiding trial today Flomax and Urecholine maintained Bowels are moving Very difficult to recover from catastrophic stroke 05/15/20: Patient participating with therapy No pain reported Dr Houston consulted for james catheter 05/14/20: Patient denies pain Working well with structured therapies James cath still in place will need to DC soon Working on BM regimen Patient doing well Settling in well No pain reported Working with PT OT and ST Eating a bit more without aspiration No falls Checked meds and labs Conferred with RN Reviewed therapy notes Review of Systems General: Fatigue Objective Exam Vital Signs Vital Signs Date Time Temp Pulse Resp B/P (MAP) Pulse Ox O2 Delivery O2 Flow Rate FiO2 05/28/20 05:32 37.1 73 16 132/60 (84) 94 Room Air Capillary Refill : Less Than 3 Seconds General Appearance: No Apparent Distress, Anxious, Chronically ill, Thin HEENT: PERRL/EOMI, Normal ENT Inspection, Pharynx Normal Neck: Full Range of Motion, Normal Inspection, Non Tender, Supple, Carotid Bruit Respiratory: Chest Non Tender, Lungs Clear, No Accessory Muscle Use, No Respiratory Distress, Decreased Breath Sounds Cardiovascular: Regular Rate, Rhythm, No Edema, No Gallop, No JVD, No Murmur, Normal Peripheral Pulses Gastrointestinal: Normal Bowel Sounds, No Organomegaly, No Pulsatile Mass, Non Tender, Soft Back: Normal Inspection, No CVA Tenderness, No Vertebral Tenderness Extremity: Normal Capillary Refill, Normal Inspection, Normal Range of Motion (except right sided weakness), Non Tender, No Calf Tenderness, No Pedal Edema Neurologic/Psychiatric: Alert, No Motor/Sensory Deficits, Normal Mood/Affect, Abnormal prepress specialist II-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 FIM Transfers Therapy Code Descriptions/Definitions Functional [place] Measure: 0=Not Assessed/NA 4=Minimal Assistance 1=Total Assistance 5=Supervision or Setup 2=Maximal Assistance 6=Modified [place] 3=Moderate Assistance 7=Complete IndependenceSCALE: Activities may be completed with or without assistive devices. 2-Hhezwdvizp-zuvzcwd completes the activity by him/herself with no assistance from a helper. 5-Set-up or Clean-up Assistance-helper sets up or cleans up; patient completes activity. [place] assists only prior to or following the activity. 4-Supervision or Touching Assistance-helper provides verbal cues and/or touching/steadying and/or contact guard assistance as patient completes activity. Assistance may be provided throughout the activity or intermittently. 3-Partial/Moderate Assistance-helper does LESS THAN HALF the effort. [place] lifts, holds or supports trunk or limbs, but provides less than half the effort. 2-Substantial/Maximal Assistance-helper does MORE THAN HALF the effort. [place] lifts or holds trunk or limbs and provides more than half the effort. 2-Xmfsqcnwa-ofnoff does ALL the effort. Patient does none of the effort to complete the activity. Or, the assistance of 2 or more helpers is required for the patient to complete the activity. If activity was not attempted, code reason: 7-Patient Refused. 9-Not Applicable-not attempted and the patient did not perform the activity before the current illness, exacerbation or injury. 10-Not Attempted due to Environmental Limitations-(lack of equipment, weather restraints, etc.). 88-Not Attempted due to Medical Conditions or Safety Concerns. Roll Left to Right (QC): 2 Sit to Lying (QC): 4 (CGA with cues for sequencing and safety. ) Sit to Stand (QC): 4 (CGA and heavy cues for hand placment and sequencig to maintain safety.) Chair/Img-cq-Gzsiu Xfer(QC): 4 (CGA--reaches across chair to stabilize and turn.) Car Transfer (QC): 3 Gait Training Does the Patient Walk?: Yes Distance: 30 ft x 2 Walk 10 feet (QC): 3 Walk 50 ft with 2 Turns(QC): 3 Walk 150 ft (QC): 88 Walking 10ft/uneven surface-QC: 88 Gait Persons Needed: 1 Gait Assistive Device: Walker Platform Wheelchair Training Does the Pt Use a Wheelchair?: Yes Distance: 150'x3 Wheel 50 ft with 2 turns (QC): 5 Wheel 150 ft (QC): 5 Type of Wheelchair: Manual Stair Training 1 Step (curb) (QC): 88 4 Steps (QC): 88 12 Steps (QC): 88 Balance Picking up an Object (QC): 88 ADL-Treatment Eating (QC): 4 Oral Hygiene (QC): 4 (SBA for complete set up and constant cues to sequence each step of brushing teeth seated at sink.) Bathing Location: L Arm, L Upper Leg, R Upper Leg, Chest, Abdomen Shower/Bathe Self (QC): 2 (Pt. agrees to shower. She is able to wash chest and upper legs. OT washes all other parts for her. Noted pt. incontinent of stool. Dependent for lopez care.) Upper Body Dressing (QC): 3 (Mod assist overall. Pt. able to doff shirt with SBA and cues, and able to don shirt with mod assist overall. Doing better today with this task.) Lower Body Dressing (QC): 2 (Max assist to thread bilateral LE into brief and pants. Pt. able to engage right UE more correctly today to attempt to use to don over hips in stance. Overall, requires assistance to thoroughly get over hips.) On/Off Footwear (QC): 2 Toileting Hygiene (QC): 7 Toilet Transfer (QC): 7 (Pt. 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 Ensure adequate anticoagulation 2. PT, OT, and INVOICE MACHINE OPERATOR eval's and treat 3. Oxygen via NC- wean as tolerated 4. Resume Home medications 5. Fall precautions 6. Dietary consult 7. DVT prophylaxis 05/13/20: Patient participating well No pain reported Continue current meds Advance diet 05/14/20: James DC soon Continue home meds Therapies to continue protocol 05/15/20: Dr Houston appreciated Monitor BP Monitor labs 05/16/20: Bladder meds Appreciate Dr Houston PT OT ST 05/17/20: Voiding trial Monitor closely Variable moods 05/18/20: Monitor BP Encourage PO intake James cath management 05/19/20: Encourage participation with therapies Monitor james cath 05/20/20: Monitor closely Bladder management 05/21/20: Monitor closely Cath maintained? 05/22/20: Cath in place Check labs in am Increased dose of Urecholine 05/23/20: Monitor bladder function Increased dose of Urecholine 05/24/20: Maintain james catheter IRF protocol Family evaluating DC plans 05/25/20: DC next week James cath in place now Monitor for falls 05/26/20: Voiding well without cath now Monitor closely 05/27/20: DC accuchecks Dramatic improvement since admit (1) CVA (cerebral vascular accident) (2) Dysarthria (3) Dysphagia (4) PEG (percutaneous endoscopic gastrostomy) status (5) Expressive aphasia (6) Smoker (7) COPD (chronic obstructive pulmonary disease) (8) CAD (coronary artery disease) (9) Hx of CABG (10) James catheter in place (11) Retention of urine BECKI WAGNER DO May 27, 2020 07:06
[2020-05-27] MEDS: RT-ALBUTEROL/IPRATROPIUM 3 ML (DUONEB) VIAL IH SCH ×2 (07:51→19:24)
[2020-05-27] MEDS: RT-BUDESONIDE NEBS 0.5 MG/2ML (PULMICORT) AMP IH SCH ×2 (07:51→19:24)
[2020-05-27] MEDS: ASPIRIN 81 MG CHEW (CHILDREN'S ASA) PO SCH (08:46)
[2020-05-27] MEDS: SENNA W/DOCUSATE (SENOKOT S) TABLET PO SCH ×3 (08:46→21:20)
[2020-05-27] MEDS: FAMOTIDINE 20 MG (PEPCID) TABLET PO SCH (08:46)
[2020-05-27] MEDS: amLODIPine 5 MG (NORVASC) TAB PO SCH (08:47)
[2020-05-27] MEDS: CARVEDILOL 3.125 MG (COREG) TABLET PO SCH ×2 (08:47→21:14)
[2020-05-27] MEDS: CLOPIDOGREL 75 MG (PLAVIX) TABLET PO SCH (08:47)
[2020-05-27] MEDS: DOCUSATE SODIUM 100 MG (COLACE) CAP PO SCH ×3 (08:47→21:20)
[2020-05-27] MEDS: fluCOnazole (DIFLUCAN) 100 MG TAB PO SCH (08:47)
[2020-05-27] MEDS: polyethylene glycoL POWDER 17 GM (MIRALAX) PACK PO SCH ×2 (08:48→21:20)
[2020-05-27] MEDS: MICONAZOLE NITRATE 2% CRM 30 GM TP SCH ×2 (08:48→21:15)
--- NOTE | 2020-05-27 09:32 | Physical Therapy Daily Note ---
PT Daily Note-Current Subjective Pt. up in recliner, tearful and emotional. Unable to express her feeling except agrees she is just depressed about her current situation. Denies pain. Pain Location: No Pain Reported Mental Status Patient Orientation: Non-Verbal/Aphasic Transfers SCALE: Activities may be completed with or without assistive devices. 4-Ukehboqexi-lsfigpf completes the activity by him/herself with no assistance from a helper. 5-Set-up or Clean-up Assistance-helper sets up or cleans up; patient completes activity. [place] assists only prior to or following the activity. 4-Supervision or Touching Assistance-helper provides verbal cues and/or touching/steadying and/or contact guard assistance as patient completes activit y. Assistance may be provided throughout the activity or intermittently. 3-Partial/Moderate Assistance-helper does LESS THAN HALF the effort. [place] lifts, holds or supports trunk or limbs, but provides less than half the effort. 2-Substantial/Maximal Assistance-helper does MORE THAN HALF the effort. [place] lifts or holds trunk or limbs and provides more than half the effort. 9-Ytnttxazt-xazona does ALL the effort. Patient does none of the effort to complete the activity. Or, the assistance of 2 or more helpers is required for the patient to complete the activity. If activity was not attempted, code reason: 7-Patient Refused. 9-Not Applicable-not attempted and the patient did not perform the activity before the current illness, exacerbation or injury. 10-Not Attempted due to Environmental Limitations-(lack of equipment, weather restraints, etc.). 88-Not Attempted due to Medical Conditions or Safety Concerns. Roll Left & Right (QC): 4 Sit to Lying (QC): 4 Lying to Sitting/Side of Bed(Q: 4 Sit to Stand (QC): 4 Chair/Agg-an-Dpfbk Xfer(QC): 4 Toilet Transfer (QC): 4 mod assist to manage clothing and clean up with toileting Weight Bearing Right Lower Extremity: Right Full Weight Bearing Left Lower Extremity: Left Full Weight Bearing Gait Training Does the Patient Walk?: Yes Walk 10 feet (QC): 4 Gait Persons Needed: 1 Gait Assistive Device: Handheld Assist TROLLEY OPERATOR right and hallway rail on left 15 ft x 2 , w/c to follow, improving heel strike and DF right . Wheelchair Training Does the Pt Use a Wheelchair?: Yes Wheel 50 ft with 2 turns (QC): 3 Type of Wheelchair: Manual requires hand over hand and much instruction repeatedly. Pt. uses feet/LEs for mobility and needs mod assist to brake Exercises Supine Ex: Bridging, Ankle pumps, Quad Set, Rolling, Heel Slides, Short Arc Quads, Scooting, Straight leg raise (assisted R), Hip abd/add Supine Reps: 10 (x2) Seated Therapy Exercises: Ankle pumps, Sit to stand, Long arc quads, Hip flexion Seated Reps: 15 Treatments SPTs to left and right, gait in watt, toileting, sit to stands, supine therex and sup to sit TRFs, w/c mobility Assessment Current Status: Good Progress appears dyspneic frequently but O2 sats are >90% on room air, needs rest breaks multiple times PT Short Term Goals Short Term Goals Time Frame: May 19, 2020 Roll Left & Right: 4 Sit to lyin (met) Lying to sitting on side of be: 3 Chair/lub-gn-wufzw transfer: 3 (met) Walk 10 feet: 3 (met) Does pt use a wc or scooter: Yes Wheel 50ft w/2 turns: 3 Wheel 150 feet: 3 PT Poolroom/Poolhall Manager Goals Poolroom/Poolhall Manager Goals PT Longterm Goals Time Frame: Jun 02, 2020 Roll Left & Right (QC): 6 Sit to Lying (QC): 6 Lying-Sitting on Side/Bed(QC): 6 Sit to Stand (QC): 4 Chair/Qrv-rv-Tnbrk Xfer(QC): 4 Toilet Transfer (QC): 4 Car Transfer (QC): 4 Does the Patient Walk: Yes Walk 10 feet (QC): 3 Walk 50ft with 2 Turns (QC): 3 Walk 150 ft (QC): 88 Walking 10ft on Uneven Surface: 3 1 Step (curb) (QC): 3 4 Steps (QC): 88 12 Steps (QC): 88 Picking up an Object (QC): 88 Does the Pt use WC or Scooter?: Yes Wheel 50 feet with 2 turns (QC: 6 Wheel 150 feet: 6 PT Plan Treatment/Plan Treatment Plan: Continue Plan of Care Treatment Plan: Bed Mobility, Education, Functional Activity Robbin, Functional Strength, Group Therapy, Gait, Safety, Therapeutic Exercise, Transfers Treatment Duration: May 13, 2020 Frequency: At least 5 of 7 days/Wk (IRF) Estimated Hrs Per Day: 1.5 hours per day Patient and/or Family Agrees t: Yes Safety Risks/Education Patient Education: Gait Training, Transfer Techniques, Correct Positioning, W/C Management, Disease Process, Safety Issues Teaching Recipient: Patient Teaching Methods: Demonstration, Discussion Response to Teaching: Reinforcement Needed Time/GCodes Time In: 800 Time Out: 930 Total Billed Treatment Time: 90 Total Billed Treatment 1,GT15m,WC15m,FA30m,EX30m JANA OROSCO ASPHALT DISTRIBUTOR OPERATOR May 27, 2020 09:32
--- NOTE | 2020-05-27 09:41 | Speech Therapy Daily Note ---
Speech Daily Progress Note Subjective Date Seen by Provider: May 27, 2020 Time Seen by Provider: 00:30 Patient was resting in her recliner following her PT session. She states she is a little tired. Objective Patient demo safe intake strategies with all intake at 90% with minimal cues. Assessment Assessment Current Status: Fair Progress Treatment Plan Continue Plan of Care Speech Short Term Goals Short Term Goals Short Term Goals 1) The patient will complete cognitive tasks related to memory, safety awareness and problem solving at 80% with minimal cues. 2) The patient will complete speech tasks to improve intelligibility at 80% with minimal cues. 3) The patient will complete confrontational naming tasks at 90% with minimal cues. 4) The patient will complete OME for improved oral status for safe oral intake at 80% or greater with minimal cues. Speech Usp Goals Veterinary Radiologist Goals Patient will improve communication abilities and safe oral intake in order to return to prior level. Speech-Plan Patient/Family Goals Patient/Family Goals: Patient will discharge to live with her daughter. Treatment Plan Speech Therapy Treatment Plan: Continue Plan of Care Treatment Duration: May 25, 2020 Frequency: 4 times per week (Patient will receive ST 4-5x per week) Estimated Hrs Per Day: .5 hour per day Rehab Potential: Fair Barriers to Learning: Patient's recent CVA, expressive aphasia Pt/Family Agrees to Plan: Yes Safety Risks/Education Teaching Recipient: Patient Teaching Methods: Demonstration, Discussion Response to Teaching: Verbalize Understanding, Return Demonstration Education Topics Provided: Continued safety within her room, safety of oral intake Time Speech Therapy Time In: 09:30 Speech Therapy Time Out: 10:00 Total Billed Time: 30 Billed Treatment Time 1, JEWEL, SLSHERYL Amanda May 27, 2020 09:41
--- NOTE | 2020-05-27 11:09 | Progress Note - Urology ---
Progress Note-Urology Progress Notes/Assess & Plan Progress/Assessment & Plan CONTINUES WELL VOIDING. PLAN START WEANING OFF URECHOLINE Final Diagnosis URINE RETENTION ( RESOLVING) TANIA MENDEZ MD May 27, 2020 11:09
--- NOTE | 2020-05-27 11:21 | NUR ---
"RD ASSESSMENT PMHx: CAD; DM; COPD; dysphagia; PT INTERACTION: Pt was awake and pleasant during nutrition follow-up. Pt states she has been eating fair since last assessment. Note avg PO intak3 45% x4d, per chart review. Pt states no issues with nausea, vomiting, constipation, or diarrhea since last assessment. Note last BM was 05/25, and pt currently on bowel regimen of colace BID, senna BID, and miralax BID, per chart review. ABNORMAL NUTRITION-RELATED LAB VALUES LOW: HIGH: glu 123; Est. kcal needs: 9220-7715 kcal | 35-30 kcal/kg Est. Pro needs: 56-67 g Pro | 1.0-1.2 g Pro/kg PES STATEMENT: Inadequate oral intake (NI-2.1) related to loss of appetite as evidenced by pt interview, and avg PO intake 45% x4d. INTERVENTION: Continue with current diet order of CHO 60g/m 3snack diet, with modifier of DYS2 Mechanically Altered diet. Continue with current supplementation order of Glucerna with meals TID, for increased kcal intake. Provides 220 kcal and 10 g Pro per serving. Encouraged pt to eat when able. Will continue to follow and reassess as pt needs, intake, and status change. Mukesh Ontiveros, RD LD [phone] cell"
--- NOTE | 2020-05-27 11:37 | Occupational Ther Daily Note ---
OT Current Status-Daily Note Subjective Pt in recliner. Pt no c/o pain. Pt agreed to therapy. Mental Status/Objective Patient Orientation: Person, Place, Time, Situation ADL-Treatment Pt transferred from recliner to /c, [facility]. Pt propelled self to bathroom to perform showering. Pt used grab bars to pull self up/stabilize while transferring to shower bench, [facility]. Pt doff UE/LE clothing Min A. Pt performed upper body washing with verbal cues to wash L arm with R hand. Pt performed lower body washing with set up. Pt used grab bars to stabilize in standing while cleansing buttocks, perineal area by self with SBA. Pt transferred from shower bench to w/c, [facility]. Pt don lower body clothing Mod A when threading feet/legs into pants/socks. Pt used DURAND to stabilize while hiking pants over L hip. Pt don upper body clothing Min A threading R arm into shirt, pulling shirt over head. Pt propelled to sink to perform oral care by self, brushing hair with set up. Therapy Code Descriptions/Definitions Functional [place] Measure: 0=Not Assessed/NA 4=Minimal Assistance 1=Total Assistance 5=Supervision or Setup 2=Maximal Assistance 6=Modified [place] 3=Moderate Assistance 7=Complete IndependenceSCALE: Activities may be completed with or without assistive devices. 8-Wdklstenwi-wwsomkk completes the activity by him/herself with no assistance from a helper. 5-Set-up or Clean-up Assistance-helper sets up or cleans up; patient completes activity. [place] assists only prior to or following the activity. 4-Supervision or Touching Assistance-helper provides verbal cues and/or touching/steadying and/or contact guard assistance as patient completes activity. Assistance may be provided throughout the activity or intermittently. 3-Partial/Moderate Assistance-helper does LESS THAN HALF the effort. [place] lifts, holds or supports trunk or limbs, but provides less than half the effort. 2-Substantial/Maximal Assistance-helper does MORE THAN HALF the effort. [place] lifts or holds trunk or limbs and provides more than half the effort. 2-Mlnfoyxme-mvzgyh does ALL the effort. Patient does none of the effort to complete the activity. Or, the assistance of 2 or more helpers is required for the patient to complete the activity. If activity was not attempted, code reason: 7-Patient Refused. 9-Not Applicable-not attempted and the patient did not perform the activity before the current illness, exacerbation or injury. 10-Not Attempted due to Environmental Limitations-(lack of equipment, weather restraints, etc.). 88-Not Attempted due to Medical Conditions or Safety Concerns. Oral Hygiene (QC): 5 Bathing Location: L Arm, R Arm, L Upper Leg, R Upper Leg, L Lower Leg (including foot), R Lower Leg (including foot), Chest, Abdomen, Buttocks, Perineal Area Shower/Bathe Self (QC): 4 Upper Body Dressing (QC): 3 Lower Body Dressing (QC): 2 On/Off Footwear: 3 Other Treatment Pt propelled to therapy gym. Pt worked on B UE strengthening/cognition activity while standing to work on standing balance, finger manipulation, eye hand coordination, memory for daily functional task. Pt was able to complete activity placing 4 words onto board with verbal cues. Rest breaks required. Pt propelled self back to room. Pt transferred from w/c to bed, [facility]. Call light/phone in reach. All needs met. OT Short Term Goals Short Term Goals Time Frame: May 26, 2020 Eatin Oral hygiene: 3 Toileting hygiene: 3 Shower/bathe self: 3 Upper body dressin Lower body dressin Putting on/taking off footwear: 3 OT [place] Splitter Goals Detention Goals Time Frame: Jun 09, 2020 Eating (QC): 4 Oral Hygiene (QC): 4 Toileting Hygiene (QC): 3 Shower/Bathe Self (QC): 3 Upper Body Dressing (QC): 5 Lower Body Dressing (QC): 4 On/Off Footwear (QC): 4 Additional Goals: 1-Demonstrate ADL Tasks, 2-Verbalize Understanding, 3- ImproveStrength/Robbin 1=Demonstrate adherence to instructed precautions during ADL tasks. 2=Patient will verbalize/demonstrate understanding of assistive devices/modifications for ADL. 3=Patient will improve strength/tolerance for activity to enable patient to perform ADL's. OT Education/Plan Problem List/Assessment Assessment: Decreased Activ Tolerance, Decreased UE Strength, Impaired Funct Balance, Impaired Self-Care Skills Visual perceptual issues difficult to pinpoint due to severe global aphasia. Discharge Recommendations Plan/Recommendations: Continue POC Treatment Plan/Plan of Care Patient would benefit from OT for education, treatment and training to promote independence in ADL's, mobility, safety and/or upper extremity function for ADL's. Plan of Care: ADL Retraining, Caregiver Training, Cognitive Retraining, Functional Mobility, Group Exercise/Act as Ind, UE Funct Exercise/Act, UE Neuromus Re-Ed/Coord, Visual/Perceptual Retrain, W/C Management Training Treatment Duration: Jun 09, 2020 Frequency: At least 5 of 7 days/Wk (IRF) Estimated Hrs Per Day: 1.5 hours per day Agreement: Yes Rehab Potential: Fair Time/GCodes Start Time: 10:15 Stop Time: 11:30 Total Time Billed (hr/min): 75 Billed Treatment Time 1 visit- ADL 3 (45 mins), FA 2 (30 mins) MARGOT WADDELL May 27, 2020 11:36
[2020-05-27 16:05] VITALS: BP 116/59
[2020-05-27] MEDS: TAMSULOSIN 0.4 MG (FLOMAX) CAP PO SCH (17:30)
--- NOTE | 2020-05-27 19:07 | NUR ---
Bedside report received from HARISH AVILES, assume care of pt.
[2020-05-27 21:11] VITALS: BP 134/63
--- NOTE | 2020-05-27 21:14 | NUR ---
Pt refused Colace, Miralax & Senokot, takes pills well one at a time with water & HOB straight upright
[2020-05-27] MEDS: MELATONIN 3 MG TABLET PO PRN (21:15)
[2020-05-28 05:32] VITALS: BP 132/60
[2020-05-28 08:00] VITALS: BP 121/56
[2020-05-28] MEDS: ASPIRIN 81 MG CHEW (CHILDREN'S ASA) PO SCH (08:15)
[2020-05-28] MEDS: amLODIPine 5 MG (NORVASC) TAB PO SCH (08:15)
[2020-05-28] MEDS: CLOPIDOGREL 75 MG (PLAVIX) TABLET PO SCH (08:15)
[2020-05-28] MEDS: BETHANECHOL 25 MG (URECHOLINE) TAB PO SCH ×3 (08:15→16:53)
[2020-05-28] MEDS: CARVEDILOL 3.125 MG (COREG) TABLET PO SCH ×2 (08:15→20:53)
[2020-05-28] MEDS: FAMOTIDINE 20 MG (PEPCID) TABLET PO SCH (08:15)
[2020-05-28] MEDS: polyethylene glycoL POWDER 17 GM (MIRALAX) PACK PO SCH ×2 (08:19→20:56)
[2020-05-28] MEDS: SENNA W/DOCUSATE (SENOKOT S) TABLET PO SCH ×2 (08:20→20:57)
[2020-05-28] MEDS: DOCUSATE SODIUM 100 MG (COLACE) CAP PO SCH ×2 (08:20→20:53)
[2020-05-28] MEDS: MICONAZOLE NITRATE 2% CRM 30 GM TP SCH ×2 (08:22→20:57)
--- NOTE | 2020-05-28 10:48 | Progress Note - Urology ---
Progress Note-Urology Progress Notes/Assess & Plan Progress/Assessment & Plan CONTINUES VOIDING. PLAN CHECK PVR TO DECIDE ON FURTHER WEANING OFF URECHOLINE Final Diagnosis RETENTION (RESOLVED) TANIA MENDEZ MD May 28, 2020 10:48
--- NOTE | 2020-05-28 11:24 | Physical Therapy Daily Note ---
PT Daily Note-Current Subjective Pt is in the chair and ready to get up. Mental Status Attachments: Oxygen Transfers SCALE: Activities may be completed with or without assistive devices. 8-Fqkcsxzdbu-voquopg completes the activity by him/herself with no assistance from a helper. 5-Set-up or Clean-up Assistance-helper sets up or cleans up; patient completes activity. [place] assists only prior to or following the activity. 4-Supervision or Touching Assistance-helper provides verbal cues and/or touching/steadying and/or contact guard assistance as patient completes activity. Assistance may be provided throughout the activity or intermittently. 3-Partial/Moderate Assistance-helper does LESS THAN HALF the effort. [place] lifts, holds or supports trunk or limbs, but provides less than half the effort. 2-Substantial/Maximal Assistance-helper does MORE THAN HALF the effort. [place] lifts or holds trunk or limbs and provides more than half the effort. 6-Ioatzqmuz-avacws does ALL the effort. Patient does none of the effort to complete the activity. Or, the assistance of 2 or more helpers is required for the patient to complete the activity. If activity was not attempted, code reason: 7-Patient Refused. 9-Not Applicable-not attempted and the patient did not perform the activity be fore the current illness, exacerbation or injury. 10-Not Attempted due to Environmental Limitations-(lack of equipment, weather restraints, etc.). 88-Not Attempted due to Medical Conditions or Safety Concerns. Sit to Stand (QC): 3 Weight Bearing Right Lower Extremity: Right Full Weight Bearing Left Lower Extremity: Left Full Weight Bearing Gait Training Does the Patient Walk?: Yes Distance: 40ft x3 Walk 10 feet (QC): 3 Gait Persons Needed: 1 Gait Assistive Device: Walker Platform Exercises Seated Therapy Exercises: LE Protocol Seated Reps: 15 Assessment Current Status: Fair Progress Pt had difficulty with the (R) UE staying in the platform. PT Short Term Goals Short Term Goals Time Frame: May 19, 2020 Roll Left & Right: 4 Sit to lyin (met) Lying to sitting on side of be: 3 Chair/iqr-tr-byvbo transfer: 3 (met) Walk 10 feet: 3 (met) Does pt use a wc or scooter: Yes Wheel 50ft w/2 turns: 3 Wheel 150 feet: 3 PT Fpc Goals Vitreo Retinal Surgeon Goals PT Fpc Goals Time Frame: Jun 02, 2020 Roll Left & Right (QC): 6 Sit to Lying (QC): 6 Lying-Sitting on Side/Bed(QC): 6 Sit to Stand (QC): 4 Chair/Xvm-xy-Bsxuy Xfer(QC): 4 Toilet Transfer (QC): 4 Car Transfer (QC): 4 Does the Patient Walk: Yes Walk 10 feet (QC): 3 Walk 50ft with 2 Turns (QC): 3 Walk 150 ft (QC): 88 Walking 10ft on Uneven Surface: 3 1 Step (curb) (QC): 3 4 Steps (QC): 88 12 Steps (QC): 88 Picking up an Object (QC): 88 Does the Pt use WC or Scooter?: Yes Wheel 50 feet with 2 turns (QC: 6 Wheel 150 feet: 6 PT Plan Treatment/Plan Treatment Plan: Continue Plan of Care Treatment Plan: Bed Mobility, Education, Functional Activity Robbin, Functional Strength, Group Therapy, Gait, Safety, Therapeutic Exercise, Transfers Treatment Duration: May 13, 2020 Frequency: At least 5 of 7 days/Wk (IRF) Estimated Hrs Per Day: 1.5 hours per day Patient and/or Family Agrees t: Yes Time/GCodes Time In: 0935 Time Out: 0950 Total Billed Treatment Time: 15 Total Billed Treatment 1, gt (15) OTTO BURGER PT May 28, 2020 11:24
[2020-05-28] MEDS: RT-ALBUTEROL/IPRATROPIUM 3 ML (DUONEB) VIAL IH SCH (13:49)
--- NOTE | 2020-05-28 13:57 | PM&R Progress Note ---
Subjective HPI/CC On Admission Date Seen by Provider: May 28, 2020 Time Seen by Provider: 14:00 Subjective/Events-last exam 05/28/20: Not voiding very often Doesn't drink much during day No pain reported 05/27/20: Improved status Feeding herself now Dramatic improvement since admit No incontinence now DC accucheck BID 05/26/20: Voiding well now No catheter now Made her way to the commode on her own without help last night and urinated in her clothes on top of the commode No incontinence usually 05/25/20: Pt doing pretty well James is out, will evaluate whether she can void or not on her own Urocholine is at 50mg AC and HS Bowels are really moving well 05/24/20: Pt doing pretty well Re-inserted james due to retention Yeast infection will be managed with Diflucan and Monistat cream 05/23/20: Pt still doing pretty well Participation in therapy varies Cognition is an issue Overall doing well enough to remain stable 05/22/20: James cath still in place Urecholine 50mg dose now BM today 05/21/20: Likely will need catheter replaced No pain reported Feeder maintained adequate consumption 05/20/20: Patient about the same Requires a feeder to eat No pain reported Confusion is a limitation 05/19/20: Pt has varying participation with PT and OT Accu cheks changed to BID Will monitor pt closely Denies any pain Is a feeder 05/18/20: Re inserted the james since urinary retention continued Increasing oral fluids Urecholine was increased dose barron Bowels are moving 05/17/20: Xanax given last night Bowels moved yesterday Refusing to eat supper or breakfast today Agitated a bit today Post-void residual had 238 Hadnt voided since discontinued the cath yesterday 05/16/20: Dr. Houston will discontinue the catheter and evaluate voiding trial today Flomax and Urecholine maintained Bowels are moving Very difficult to recover from catastrophic stroke 05/15/20: Patient participating with therapy No pain reported Dr Houston consulted for james catheter 05/14/20: Patient denies pain Working well with structured therapies James cath still in place will need to DC soon Working on BM regimen Patient doing well Settling in well No pain reported Working with PT OT and ST Eating a bit more without aspiration No falls Checked meds and labs Conferred with RN Reviewed therapy notes Review of Systems General: Fatigue Neurological: Weakness, Incoordination Objective Exam Vital Signs Vital Signs Date Time Temp Pulse Resp B/P (MAP) Pulse Ox O2 Delivery O2 Flow Rate FiO2 05/28/20 09:24 Room Air 05/28/20 05:32 37.1 73 16 132/60 (84) 94 Capillary Refill : Less Than 3 Seconds General Appearance: No Apparent Distress, Anxious, Chronically ill, Thin HEENT: PERRL/EOMI, Normal ENT Inspection, Pharynx Normal Neck: Full Range of Motion, Normal Inspection, Non Tender, Supple, Carotid Bruit Respiratory: Chest Non Tender, Lungs Clear, No Accessory Muscle Use, No Respiratory Distress, Decreased Breath Sounds Cardiovascular: Regular Rate, Rhythm, No Edema, No Gallop, No JVD, No Murmur, Normal Peripheral Pulses Gastrointestinal: Normal Bowel Sounds, No Organomegaly, No Pulsatile Mass, Non Tender, Soft Back: Normal Inspection, No CVA Tenderness, No Vertebral Tenderness Extremity: Normal Capillary Refill, Normal Inspection, Normal Range of Motion (except right sided weakness), Non Tender, No Calf Tenderness, No Pedal Edema Neurologic/Psychiatric: Alert, No Motor/Sensory Deficits, Normal Mood/Affect, Abnormal baker head II-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 FIM Transfers Therapy Code Descriptions/Definitions Functional [place] Measure: 0=Not Assessed/NA 4=Minimal Assistance 1=Total Assistance 5=Supervision or Setup 2=Maximal Assistance 6=Modified [place] 3=Moderate Assistance 7=Complete IndependenceSCALE: Activities may be completed with or without assistive devices. 9-Inrubovoun-qzudocv completes the activity by him/herself with no assistance from a helper. 5-Set-up or Clean-up Assistance-helper sets up or cleans up; patient completes activity. [place] assists only prior to or following the activity. 4-Supervision or Touching Assistance-helper provides verbal cues and/or touching/steadying and/or contact guard assistance as patient completes activity. Assistance may be provided throughout the activity or intermittently. 3-Partial/Moderate Assistance-helper does LESS THAN HALF the effort. [place] lifts, holds or supports trunk or limbs, but provides less than half the effort. 2-Substantial/Maximal Assistance-helper does MORE THAN HALF the effort. [place] lifts or holds trunk or limbs and provides more than half the effort. 9-Clclyxzmc-jzvoqu does ALL the effort. Patient does none of the effort to complete the activity. Or, the assistance of 2 or more helpers is required for the patient to complete the activity. If activity was not attempted, code reason: 7-Patient Refused. 9-Not Applicable-not attempted and the patient did not perform the activity before the current illness, exacerbation or injury. 10-Not Attempted due to Environmental Limitations-(lack of equipment, weather restraints, etc.). 88-Not Attempted due to Medical Conditions or Safety Concerns. Roll Left to Right (QC): 4 Sit to Lying (QC): 4 Sit to Stand (QC): 3 Chair/Ase-pv-Pcfvc Xfer(QC): 4 Car Transfer (QC): 3 Gait Training Does the Patient Walk?: Yes Distance: 40ft x3 Walk 10 feet (QC): 3 Walk 50 ft with 2 Turns(QC): 3 Walk 150 ft (QC): 88 Walking 10ft/uneven surface-QC: 88 Gait Persons Needed: 1 Gait Assistive Device: Walker Platform Wheelchair Training Does the Pt Use a Wheelchair?: Yes Distance: 150'x3 Wheel 50 ft with 2 turns (QC): 3 Wheel 150 ft (QC): 5 Type of Wheelchair: Manual Stair Training 1 Step (curb) (QC): 88 4 Steps (QC): 88 12 Steps (QC): 88 Balance Picking up an Object (QC): 88 ADL-Treatment Eating (QC): 4 Oral Hygiene (QC): 5 Bathing Location: L Arm, R Arm, L Upper Leg, R Upper Leg, L Lower Leg (including foot), R Lower Leg (including foot), Chest, Abdomen, Buttocks, Perineal Area Shower/Bathe Self (QC): 4 Upper Body Dressing (QC): 3 Lower Body Dressing (QC): 2 On/Off Footwear (QC): 3 Toileting Hygiene (QC): 7 Toilet Transfer (QC): 7 (Pt. 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 Ensure adequate anticoagulation 2. PT, OT, and REAL ESTATE PHOTOGRAPHER eval's and treat 3. Oxygen via NC- wean as tolerated 4. Resume Home medications 5. Fall precautions 6. Dietary consult 7. DVT prophylaxis 05/13/20: Patient participating well No pain reported Continue current meds Advance diet 05/14/20: James DC soon Continue home meds Therapies to continue protocol 05/15/20: Dr Houston appreciated Monitor BP Monitor labs 05/16/20: Bladder meds Appreciate Dr Houston PT OT ST 05/17/20: Voiding trial Monitor closely Variable moods 05/18/20: Monitor BP Encourage PO intake James cath management 05/19/20: Encourage participation with therapies Monitor james cath 05/20/20: Monitor closely Bladder management 05/21/20: Monitor closely Cath maintained? 05/22/20: Cath in place Check labs in am Increased dose of Urecholine 05/23/20: Monitor bladder function Increased dose of Urecholine 05/24/20: Maintain james catheter IRF protocol Family evaluating DC plans 05/25/20: DC next week James cath in place now Monitor for falls 05/26/20: Voiding well without cath now Monitor closely 05/27/20: DC accuchecks Dramatic improvement since admit 05/28/20: Monitor dysphagia PT OT Monitor voiding (1) CVA (cerebral vascular accident) (2) Dysarthria (3) Dysphagia (4) PEG (percutaneous endoscopic gastrostomy) status (5) Expressive aphasia (6) Smoker (7) COPD (chronic obstructive pulmonary disease) (8) CAD (coronary artery disease) (9) Hx of CABG (10) James catheter in place (11) Retention of urine BECKI WAGNER DO May 28, 2020 13:57
--- NOTE | 2020-05-28 14:15 | NUR ---
VOIDED 250 CC. POST VOID BLADDER SCAN SHOWED [address] MENDEZ NOTIFIED AND URECHOLINE DOSAGE DECREASED TO 25 MG ACTID. DOES NOT VOID VERY OFTEN. NO INCONTINENCY.
[2020-05-28 17:20] VITALS: BP 124/63
[2020-05-28] MEDS: TAMSULOSIN 0.4 MG (FLOMAX) CAP PO SCH (17:31)
--- NOTE | 2020-05-28 19:07 | NUR ---
Bedside report received from ERNESTINA AVILES, [address] pt
[2020-05-28] MEDS: ALPRAZolam 0.25 MG (XANAX) TAB PO PRN (19:25)
--- NOTE | 2020-05-28 19:25 | NUR ---
pt very anxious trying to get put of bed but denies need to void or have stool, xanax 0.25mg given bed alarm on
--- NOTE | 2020-05-28 20:25 | NUR ---
pt took Colace but refused miralax & Senokot, pt assisted to commode had moderate well formed brown stool
[2020-05-28 20:48] VITALS: BP 124/57
[2020-05-28] MEDS: MELATONIN 3 MG TABLET PO PRN (20:53)
[2020-05-29 05:09] VITALS: BP 154/70
[2020-05-29] MEDS: BETHANECHOL 25 MG (URECHOLINE) TAB PO SCH ×3 (06:38→16:53)
--- NOTE | 2020-05-29 07:31 | PM&R Progress Note ---
Subjective HPI/CC On Admission Date Seen by Provider: May 29, 2020 Time Seen by Provider: 12:30 Subjective/Events-last exam 05/29/20: Decreasing Urecholine per Dr Houston now No pain reported No falls No incontinence 05/28/20: Not voiding very often Doesn't drink much during day No pain reported 05/27/20: Improved status Feeding herself now Dramatic improvement since admit No incontinence now DC accucheck BID 05/26/20: Voiding well now No catheter now Made her way to the commode on her own without help last night and urinated in her clothes on top of the commode No incontinence usually 05/25/20: Pt doing pretty well James is out, will evaluate whether she can void or not on her own Urocholine is at 50mg AC and HS Bowels are really moving well 05/24/20: Pt doing pretty well Re-inserted james due to retention Yeast infection will be managed with Diflucan and Monistat cream 05/23/20: Pt still doing pretty well Participation in therapy varies Cognition is an issue Overall doing well enough to remain stable 05/22/20: James cath still in place Urecholine 50mg dose now BM today 05/21/20: Likely will need catheter replaced No pain reported Feeder maintained adequate consumption 05/20/20: Patient about the same Requires a feeder to eat No pain reported Confusion is a limitation 05/19/20: Pt has varying participation with PT and OT Accu cheks changed to BID Will monitor pt closely Denies any pain Is a feeder 05/18/20: Re inserted the james since urinary retention continued Increasing oral fluids Urecholine was increased dose barron Bowels are moving 05/17/20: Xanax given last night Bowels moved yesterday Refusing to eat supper or breakfast today Agitated a bit today Post-void residual had 238 Hadnt voided since discontinued the cath yesterday 05/16/20: Dr. Houston will discontinue the catheter and evaluate voiding trial today Flomax and Urecholine maintained Bowels are moving Very difficult to recover from catastrophic stroke 05/15/20: Patient participating with therapy No pain reported Dr Houston consulted for james catheter 05/14/20: Patient denies pain Working well with structured therapies James cath still in place will need to DC soon Working on BM regimen Patient doing well Settling in well No pain reported Working with PT OT and ST Eating a bit more without aspiration No falls Checked meds and labs Conferred with RN Reviewed therapy notes Review of Systems General: Fatigue Neurological: Weakness, Incoordination, Change in speech Objective Exam Vital Signs Vital Signs Date Time Temp Pulse Resp B/P (MAP) Pulse Ox O2 Delivery O2 Flow Rate FiO2 05/29/20 09:00 Room Air 05/29/20 07:42 96 05/29/20 05:09 36.2 81 18 154/70 (98) Capillary Refill : Less Than 3 Seconds General Appearance: No Apparent Distress, Anxious, Chronically ill, Thin HEENT: PERRL/EOMI, Normal ENT Inspection, Pharynx Normal Neck: Full Range of Motion, Normal Inspection, Non Tender, Supple, Carotid Bruit Respiratory: Chest Non Tender, Lungs Clear, No Accessory Muscle Use, No Respiratory Distress, Decreased Breath Sounds Cardiovascular: Regular Rate, Rhythm, No Edema, No Gallop, No JVD, No Murmur, Normal Peripheral Pulses Gastrointestinal: Normal Bowel Sounds, No Organomegaly, No Pulsatile Mass, Non Tender, Soft Back: Normal Inspection, No CVA Tenderness, No Vertebral Tenderness Extremity: Normal Capillary Refill, Normal Inspection, Normal Range of Motion (except right sided weakness), Non Tender, No Calf Tenderness, No Pedal Edema Neurologic/Psychiatric: Alert, No Motor/Sensory Deficits, Normal Mood/Affect, 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 FIM Transfers Therapy Code Descriptions/Definitions Functional [place] Measure: 0=Not Assessed/NA 4=Minimal Assistance 1=Total Assistance 5=Supervision or Setup 2=Maximal Assistance 6=Modified [place] 3=Moderate Assistance 7=Complete IndependenceSCALE: Activities may be completed with or without assistive devices. 2-Zzqgzcipdy-ffvppsn completes the activity by him/herself with no assistance from a helper. 5-Set-up or Clean-up Assistance-helper sets up or cleans up; patient completes activity. [place] assists only prior to or following the activity. 4-Supervision or Touching Assistance-helper provides verbal cues and/or touching/steadying and/or contact guard assistance as patient completes activity . Assistance may be provided throughout the activity or intermittently. 3-Partial/Moderate Assistance-helper does LESS THAN HALF the effort. [place] lifts, holds or supports trunk or limbs, but provides less than half the effort. 2-Substantial/Maximal Assistance-helper does MORE THAN HALF the effort. [place] lifts or holds trunk or limbs and provides more than half the effort. 1-Pqmgyokdm-actoal does ALL the effort. Patient does none of the effort to complete the activity. Or, the assistance of 2 or more helpers is required for the patient to complete the activity. If activity was not attempted, code reason: 7-Patient Refused. 9-Not Applicable-not attempted and the patient did not perform the activity before the current illness, exacerbation or injury. 10-Not Attempted due to Environmental Limitations-(lack of equipment, weather restraints, etc.). 88-Not Attempted due to Medical Conditions or Safety Concerns. Roll Left to Right (QC): 4 Sit to Lying (QC): 4 Sit to Stand (QC): 3 Chair/Bbx-ri-Naxlp Xfer(QC): 4 Car Transfer (QC): 3 Gait Training Does the Patient Walk?: Yes Distance: 40ft x3 Walk 10 feet (QC): 3 Walk 50 ft with 2 Turns(QC): 3 Walk 150 ft (QC): 88 Walking 10ft/uneven surface-QC: 88 Gait Persons Needed: 1 Gait Assistive Device: Walker Platform Wheelchair Training Does the Pt Use a Wheelchair?: Yes Distance: 150'x3 Wheel 50 ft with 2 turns (QC): 3 Wheel 150 ft (QC): 5 Type of Wheelchair: Manual Stair Training 1 Step (curb) (QC): 88 4 Steps (QC): 88 12 Steps (QC): 88 Balance Picking up an Object (QC): 88 ADL-Treatment Eating (QC): 4 Oral Hygiene (QC): 5 Bathing Location: L Arm, R Arm, L Upper Leg, R Upper Leg, L Lower Leg (including foot), R Lower Leg (including foot), Chest, Abdomen, Buttocks, Perineal Area Shower/Bathe Self (QC): 4 Upper Body Dressing (QC): 3 Lower Body Dressing (QC): 2 On/Off Footwear (QC): 3 Toileting Hygiene (QC): 7 Toilet Transfer (QC): 7 (Pt. 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 Ensure adequate anticoagulation 2. PT, OT, and CLINICAL RESEARCH MANAGER eval's and treat 3. Oxygen via NC- wean as tolerated 4. Resume Home medications 5. Fall precautions 6. Dietary consult 7. DVT prophylaxis 05/13/20: Patient participating well No pain reported Continue current meds Advance diet 05/14/20: James DC soon Continue home meds Therapies to continue protocol 05/15/20: Dr Houston appreciated Monitor BP Monitor labs 05/16/20: Bladder meds Appreciate Dr Houston PT OT ST 05/17/20: Voiding trial Monitor closely Variable moods 05/18/20: Monitor BP Encourage PO intake James cath management 05/19/20: Encourage participation with therapies Monitor james cath 05/20/20: Monitor closely Bladder management 05/21/20: Monitor closely Cath maintained? 05/22/20: Cath in place Check labs in am Increased dose of Urecholine 05/23/20: Monitor bladder function Increased dose of Urecholine 05/24/20: Maintain james catheter IRF protocol Family evaluating DC plans 05/25/20: DC next week James cath in place now Monitor for falls 05/26/20: Voiding well without cath now Monitor closely 05/27/20: DC accuchecks Dramatic improvement since admit 05/28/20: Monitor dysphagia PT OT Monitor voiding 05/29/20: Decrease Urecholine Monitor BP Fall risk (1) CVA (cerebral vascular accident) (2) Dysarthria (3) Dysphagia (4) PEG (percutaneous endoscopic gastrostomy) status (5) Expressive aphasia (6) Smoker (7) COPD (chronic obstructive pulmonary disease) (8) CAD (coronary artery disease) (9) Hx of CABG (10) James catheter in place (11) Retention of urine BECKI WAGNER DO May 29, 2020 07:31
[2020-05-29] MEDS: RT-ALBUTEROL/IPRATROPIUM 3 ML (DUONEB) VIAL IH SCH ×2 (07:41→19:52)
[2020-05-29] MEDS: RT-BUDESONIDE NEBS 0.5 MG/2ML (PULMICORT) AMP IH SCH ×2 (07:41→19:54)
[2020-05-29] MEDS: CLOPIDOGREL 75 MG (PLAVIX) TABLET PO SCH (08:21)
[2020-05-29] MEDS: FAMOTIDINE 20 MG (PEPCID) TABLET PO SCH (08:21)
[2020-05-29] MEDS: ASPIRIN 81 MG CHEW (CHILDREN'S ASA) PO SCH (08:22)
[2020-05-29] MEDS: CARVEDILOL 3.125 MG (COREG) TABLET PO SCH ×2 (08:22→20:47)
[2020-05-29] MEDS: MICONAZOLE NITRATE 2% CRM 30 GM TP SCH ×2 (08:22→20:53)
[2020-05-29] MEDS: amLODIPine 5 MG (NORVASC) TAB PO SCH (08:22)
[2020-05-29] MEDS: DOCUSATE SODIUM 100 MG (COLACE) CAP PO SCH ×2 (08:22→20:47)
[2020-05-29] MEDS: polyethylene glycoL POWDER 17 GM (MIRALAX) PACK PO SCH ×2 (08:22→20:53)
[2020-05-29] MEDS: SENNA W/DOCUSATE (SENOKOT S) TABLET PO SCH ×2 (08:22→20:53)
--- NOTE | 2020-05-29 11:55 | Progress Note - Urology ---
Progress Note-Urology Progress Notes/Assess & Plan Progress/Assessment & Plan CONTINUES WELL ON URECHOLINE TID. PLAN BID Final Diagnosis RETENTION TANIA MENDEZ MD May 29, 2020 11:55
[2020-05-29] MEDS: TAMSULOSIN 0.4 MG (FLOMAX) CAP PO SCH (16:52)
[2020-05-29 17:04] VITALS: BP 131/62
--- NOTE | 2020-05-29 19:06 | NUR ---
Bedside report received from NIKKY AVILES, assume care of pt
[2020-05-29 20:40] VITALS: BP 145/70
[2020-05-29] MEDS: ALPRAZolam 0.25 MG (XANAX) TAB PO PRN (20:47)
--- NOTE | 2020-05-29 20:47 | NUR ---
Pt took Colace but refused Miralax & Senokot
--- NOTE | 2020-05-29 22:10 | NUR ---
up to commode, voided 300ml then bladder scan showed 0
[2020-05-30 05:14] VITALS: BP 130/72
[2020-05-30 05:35] LABS: BASOPHILS % (AUTO) 1 % (0-10); EOSINOPHILS # (AUTO) 0.1 10^3/uL (0.0-0.3); EOSINOPHILS % (AUTO) 2 % (0-10); HEMATOCRIT 38 % (35-52); HEMOGLOBIN 11.7 g/dL (11.5-16.0); LYMPHOCYTES # (AUTO) 1.6 10^3/uL (1.0-4.0); LYMPHOCYTES % (AUTO) 27 % (12-44); MEAN CORPUSCULAR HEMOGLOBIN 28 pg (25-34); MEAN CORPUSCULAR HGB CONC 31 g/dL (32-36); MEAN CORPUSCULAR VOLUME 90 fL (80-99); MEAN PLATELET VOLUME 9.8 fL (9.0-12.2); MONOCYTES # (AUTO) 0.6 10^3/uL (0.0-1.0); MONOCYTES % (AUTO) 10 % (0-12); NEUTROPHILS # (AUTO) 3.5 10^3/uL (1.8-7.8); NEUTROPHILS % (AUTO) 60 % (42-75); PLATELET COUNT 357 10^3/uL (130-400); WHITE BLOOD COUNT 5.9 10^3/uL (4.3-11.0)
[2020-05-30 05:41] LABS: ALBUMIN 3.7 GM/DL (3.2-4.5); CHLORIDE 105 MMOL/L (98-107); POTASSIUM 3.7 MMOL/L (3.6-5.0); SODIUM 140 MMOL/L (135-145)
[2020-05-30 05:42] LABS: CALCIUM 8.9 MG/DL (8.5-10.1)
[2020-05-30 05:43] LABS: GLUCOSE 140 MG/DL (70-105); TOTAL PROTEIN 6.9 GM/DL (6.4-8.2)
[2020-05-30 05:44] LABS: CARBON DIOXIDE 23 MMOL/L (21-32)
[2020-05-30 05:45] LABS: BILIRUBIN,TOTAL 0.2 MG/DL (0.1-1.0)
[2020-05-30 05:47] LABS: ALKALINE PHOSPHATASE 96 U/L (40-136); CREATININE SERUM 0.55 MG/DL (0.60-1.30); GFR ESTIMATED > 60
[2020-05-30 05:48] LABS: BUN/CREATININE RATIO 15
[2020-05-30 05:50] LABS: ALANINE AMINOTRANSFERASE 16 U/L (0-55)
[2020-05-30] MEDS: BETHANECHOL 25 MG (URECHOLINE) TAB PO SCH ×2 (06:21→17:17)
[2020-05-30 08:00] VITALS: BP 130/70
[2020-05-30] MEDS: RT-ALBUTEROL/IPRATROPIUM 3 ML (DUONEB) VIAL IH SCH ×2 (08:10→21:50)
[2020-05-30] MEDS: RT-BUDESONIDE NEBS 0.5 MG/2ML (PULMICORT) AMP IH SCH ×2 (08:11→21:50)
--- NOTE | 2020-05-30 08:19 | PM&R Progress Note ---
Subjective HPI/CC On Admission Date Seen by Provider: May 30, 2020 Time Seen by Provider: 08:30 Subjective/Events-last exam 05/30/20: Labs are okay Bowels moved yesterday Urinating well, no urinary retention Discharge planned later this week 05/29/20: Decreasing Urecholine per Dr Houston now No pain reported No falls No incontinence 05/28/20: Not voiding very often Doesn't drink much during day No pain reported 05/27/20: Improved status Feeding herself now Dramatic improvement since admit No incontinence now DC accucheck BID 05/26/20: Voiding well now No catheter now Made her way to the commode on her own without help last night and urinated in her clothes on top of the commode No incontinence usually 05/25/20: Pt doing pretty well James is out, will evaluate whether she can void or not on her own Urocholine is at 50mg AC and HS Bowels are really moving well 05/24/20: Pt doing pretty well Re-inserted james due to retention Yeast infection will be managed with Diflucan and Monistat cream 05/23/20: Pt still doing pretty well Participation in therapy varies Cognition is an issue Overall doing well enough to remain stable 05/22/20: James cath still in place Urecholine 50mg dose now BM today 05/21/20: Likely will need catheter replaced No pain reported Feeder maintained adequate consumption 05/20/20: Patient about the same Requires a feeder to eat No pain reported Confusion is a limitation 05/19/20: Pt has varying participation with PT and OT Accu cheks changed to BID Will monitor pt closely Denies any pain Is a feeder 05/18/20: Re inserted the james since urinary retention continued Increasing oral fluids Urecholine was increased dose barron Bowels are moving 05/17/20: Xanax given last night Bowels moved yesterday Refusing to eat supper or breakfast today Agitated a bit today Post-void residual had 238 Hadnt voided since discontinued the cath yesterday 05/16/20: Dr. Houston will discontinue the catheter and evaluate voiding trial today Flomax and Urecholine maintained Bowels are moving Very difficult to recover from catastrophic stroke 05/15/20: Patient participating with therapy No pain reported Dr Houston consulted for james catheter 05/14/20: Patient denies pain Working well with structured therapies James cath still in place will need to DC soon Working on BM regimen Patient doing well Settling in well No pain reported Working with PT OT and ST Eating a bit more without aspiration No falls Checked meds and labs Conferred with RN Reviewed therapy notes Review of Systems Neurological: Weakness, Incoordination, Change in speech Objective Exam Vital Signs Vital Signs Date Time Temp Pulse Resp B/P (MAP) Pulse Ox O2 Delivery O2 Flow Rate FiO2 05/30/20 21:51 99 Room Air 05/30/20 18:30 36.2 73 18 147/67 (93) Capillary Refill : Less Than 3 Seconds General Appearance: No Apparent Distress, Anxious, Chronically ill, Thin HEENT: PERRL/EOMI, Normal ENT Inspection, Pharynx Normal Neck: Full Range of Motion, Normal Inspection, Non Tender, Supple, Carotid Bruit Respiratory: Chest Non Tender, Lungs Clear, No Accessory Muscle Use, No Respiratory Distress, Decreased Breath Sounds Cardiovascular: Regular Rate, Rhythm, No Edema, No Gallop, No JVD, No Murmur, Normal Peripheral Pulses Gastrointestinal: Normal Bowel Sounds, No Organomegaly, No Pulsatile Mass, Non Tender, Soft Back: Normal Inspection, No CVA Tenderness, No Vertebral Tenderness Extremity: Normal Capillary Refill, Normal Inspection, Normal Range of Motion (except right sided weakness), Non Tender, No Calf Tenderness, No Pedal Edema Neurologic/Psychiatric: Alert, No Motor/Sensory Deficits, Normal Mood/Affect, Abnormal medical pathology teacher II-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 FIM Transfers Therapy Code Descriptions/Definitions Functional [place] Measure: 0=Not Assessed/NA 4=Minimal Assistance 1=Total Assistance 5=Supervision or Setup 2=Maximal Assistance 6=Modified [place] 3=Moderate Assistance 7=Complete IndependenceSCALE: Activities may be completed with or without assistive devices. 5-Vujmxcltqb-esdffyf completes the activity by him/herself with no assistance fr om a helper. 5-Set-up or Clean-up Assistance-helper sets up or cleans up; patient completes activity. [place] assists only prior to or following the activity. 4-Supervision or Touching Assistance-helper provides verbal cues and/or touching/steadying and/or contact guard assistance as patient completes activity. Assistance may be provided throughout the activity or intermittently. 3-Partial/Moderate Assistance-helper does LESS THAN HALF the effort. [place] lifts, holds or supports trunk or limbs, but provides less than half the effort. 2-Substantial/Maximal Assistance-helper does MORE THAN HALF the effort. [place] lifts or holds trunk or limbs and provides more than half the effort. 3-Yyjkakuym-prepqk does ALL the effort. Patient does none of the effort to complete the activity. Or, the assistance of 2 or more helpers is required for the patient to complete the activity. If activity was not attempted, code reason: 7-Patient Refused. 9-Not Applicable-not attempted and the patient did not perform the activity before the current illness, exacerbation or injury. 10-Not Attempted due to Environmental Limitations-(lack of equipment, weather restraints, etc.). 88-Not Attempted due to Medical Conditions or Safety Concerns. Roll Left to Right (QC): 4 Sit to Lying (QC): 4 Sit to Stand (QC): 3 Chair/Ehe-zo-Mshri Xfer(QC): 4 Car Transfer (QC): 3 Gait Training Does the Patient Walk?: Yes Distance: 40ft x3 Walk 10 feet (QC): 3 Walk 50 ft with 2 Turns(QC): 3 Walk 150 ft (QC): 88 Walking 10ft/uneven surface-QC: 88 Gait Persons Needed: 1 Gait Assistive Device: Walker Platform Wheelchair Training Does the Pt Use a Wheelchair?: Yes Distance: 150'x3 Wheel 50 ft with 2 turns (QC): 3 Wheel 150 ft (QC): 5 Type of Wheelchair: Manual Stair Training 1 Step (curb) (QC): 88 4 Steps (QC): 88 12 Steps (QC): 88 Balance Picking up an Object (QC): 88 ADL-Treatment Eating (QC): 4 Oral Hygiene (QC): 5 Bathing Location: L Arm, R Arm, L Upper Leg, R Upper Leg, L Lower Leg (including foot), R Lower Leg (including foot), Chest, Abdomen, Buttocks, Perineal Area Shower/Bathe Self (QC): 4 Upper Body Dressing (QC): 3 Lower Body Dressing (QC): 2 On/Off Footwear (QC): 3 Toileting Hygiene (QC): 7 Toilet Transfer (QC): 7 (Pt. 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 Ensure adequate anticoagulation 2. PT, OT, and INSTRUCTOR DRAMATIC ARTS eval's and treat 3. Oxygen via NC- wean as tolerated 4. Resume Home medications 5. Fall precautions 6. Dietary consult 7. DVT prophylaxis 05/13/20: Patient participating well No pain reported Continue current meds Advance diet 05/14/20: James DC soon Continue home meds Therapies to continue protocol 05/15/20: Dr Houston appreciated Monitor BP Monitor labs 05/16/20: Bladder meds Appreciate Dr Houston PT OT ST 05/17/20: Voiding trial Monitor closely Variable moods 05/18/20: Monitor BP Encourage PO intake James cath management 05/19/20: Encourage participation with therapies Monitor james cath 05/20/20: Monitor closely Bladder management 05/21/20: Monitor closely Cath maintained? 05/22/20: Cath in place Check labs in am Increased dose of Urecholine 05/23/20: Monitor bladder function Increased dose of Urecholine 05/24/20: Maintain james catheter IRF protocol Family evaluating DC plans 05/25/20: DC next week James cath in place now Monitor for falls 05/26/20: Voiding well without cath now Monitor closely 05/27/20: DC accuchecks Dramatic improvement since admit 05/28/20: Monitor dysphagia PT OT Monitor voiding 05/29/20: Decrease Urecholine Monitor BP Fall risk 05/30/20: Monitor voiding Fall risk DC later this week (1) CVA (cerebral vascular accident) (2) Dysarthria (3) Dysphagia (4) PEG (percutaneous endoscopic gastrostomy) status (5) Expressive aphasia (6) Smoker (7) COPD (chronic obstructive pulmonary disease) (8) CAD (coronary artery disease) (9) Hx of CABG (10) James catheter in place (11) Retention of urine BECKI WAGNER DO May 30, 2020 08:19
--- NOTE | 2020-05-30 08:36 | Cardiology Progress Note ---
Subjective Date Seen by Provider: May 30, 2020 Time Seen by Provider: 08:35 Subjective/Events-last exam Patient is sitting up in chair, no new complaints. Denies any chest pain or dyspnea. Objective-Cardiology Exam Last Set of Vital Signs Vital Signs 05/30/20 05/30/20 05/30/20 05:14 08:15 09:00 Temp 36.2 Pulse 83 Resp 18 B/P (MAP) 130/72 (91) Pulse Ox 99 O2 Delivery Room Air Capillary Refill : Less Than 3 Seconds I&O Intake and Output 05/30/20 00:00 Intake Total 1185 ml Output Total 500 ml Balance 685 ml Intake Oral 1185 ml Output Urine Total 500 ml Bladder Scan Volume Amount 0 ml 0 ml # Voids 4 # Bowel Movements 2 General: Alert, Oriented X3, Cooperative HEENT: Atraumatic, PERRLA Neck: Supple, No JVD, No Thyromegaly Lungs: Clear to Auscultation, Normal Air Movement Heart: Regular Rate, Normal S1, Normal S2, No Murmurs Abdomen: Normal Bowel Sounds, Soft, No Tenderness, No Hepatosplenomegaly, No Masses Extremities: No Clubbing, No Cyanosis, No Edema, Normal Pulses, No Tenderness/Swelling Skin: No Rashes, No Breakdown, No Significant Lesion Neuro: Normal Gait, Normal Speech, Strength at 5/5 X4 Ext, Normal Tone, Sensation Intact Psych/Mental Status: Mental Status NL, Mood NL Results Lab Laboratory Tests 05/30/20 04:45 A/P-Cardiology Admission Diagnosis CVA Coronary artery disease Hypertension Hyperlipidemia Assessment/Plan Status post CVA post CABG with residual right hemiparesis, receiving PT/OT, on Plavix and ASA. Coronary artery disease status post CABG 3. Continue to monitor at this time. Hypertension, controlled, continue to monitor Hyperlipidemia, monitor lipids Questionable peripheral arterial disease with ischemic event after her bypass has improved after conservative management, continue on Plavix Diabetes mellitus, followed and managed by primary care physician Debility, receiving physical therapy Patient was seen and evaluated with Meenakshi, examination performed, management plan was discussed, agree with the current scribed note, I made few changes to the note using Italic font Patient is feeling well, receiving physical therapy No new complaint. Continue to monitor Clinical Quality Measures DVT/VTE Risk/Contraindication: Risk Factor Score Per Nursin RFS Level Per Nursing on Admit: 4+=Very High MEENAKSHI CANADA May 30, 2020 8:36 am LOU KASPER MD May 30, 2020 12:12 pm
[2020-05-30] MEDS: FAMOTIDINE 20 MG (PEPCID) TABLET PO SCH (09:13)
[2020-05-30] MEDS: CARVEDILOL 3.125 MG (COREG) TABLET PO SCH ×2 (09:13→20:03)
[2020-05-30] MEDS: CLOPIDOGREL 75 MG (PLAVIX) TABLET PO SCH (09:13)
[2020-05-30] MEDS: amLODIPine 5 MG (NORVASC) TAB PO SCH (09:14)
[2020-05-30] MEDS: SENNA W/DOCUSATE (SENOKOT S) TABLET PO SCH ×2 (09:14→20:03)
[2020-05-30] MEDS: MICONAZOLE NITRATE 2% CRM 30 GM TP SCH ×2 (09:14→20:02)
[2020-05-30] MEDS: DOCUSATE SODIUM 100 MG (COLACE) CAP PO SCH ×2 (09:14→20:03)
[2020-05-30] MEDS: ASPIRIN 81 MG CHEW (CHILDREN'S ASA) PO SCH (09:14)
[2020-05-30] MEDS: polyethylene glycoL POWDER 17 GM (MIRALAX) PACK PO SCH ×2 (09:36→19:54)
--- NOTE | 2020-05-30 09:58 | Physical Therapy Daily Note ---
PT Daily Note-Current Subjective Pt. up in recliner, agrees to Rx, "OK baby", pt. does try to express that she is tired. Pain Location: No Pain Reported Mental Status Patient Orientation: Non-Verbal/Aphasic Attachments: Other-See Comments (mask while out of room) Transfers SCALE: Activities may be completed with or without assistive devices. 2-Dphoxbhtlg-itffciy completes the activity by him/herself with no assistance from a helper. 5-Set-up or Clean-up Assistance-helper sets up or cleans up; patient completes activity. [place] assists only prior to or following the activity. 4-Supervision or Touching Assistance-helper provides verbal cues and/or touching/steadying and/or contact guard assistance as patient completes activity. Assistance may be provided throughout the activity or intermittently. 3-Partial/Moderate Assistance-helper does LESS THAN HALF the effort. [place] lifts, holds or supports trunk or limbs, but provides less than half the effort. 2-Substantial/Maximal Assistance-helper does MORE THAN HALF the effort. [place] lifts or holds trunk or limbs and provides more than half the effort. 0-Ilivqmrsx-vwortc does ALL the effort. Patient does none of the effort to complete the activity. Or, the assistance of 2 or more helpers is required for the patient to complete the activity. If activity was not attempted, code reason: 7-Patient Refused. 9-Not Applicable-not attempted and the patient did not perform the activity before the current illness, exacerbation or injury. 10-Not Attempted due to Environmental Limitations-(lack of equipment, weather restraints, etc.). 88-Not Attempted due to Medical Conditions or Safety Concerns. Roll Left & Right (QC): 6 Sit to Lying (QC): 6 Lying to Sitting/Side of Bed(Q: 4 Sit to Stand (QC): 6 Chair/Gob-vj-Dmtko Xfer(QC): 4 Weight Bearing Right Lower Extremity: Right Full Weight Bearing Left Lower Extremity: Left Full Weight Bearing Gait Training Does the Patient Walk?: Yes Walk 10 feet (QC): 4 Walk 50 ft with 2 Turns(QC): 4 Walk 150 ft (QC): 4 Gait Persons Needed: 1 Gait Assistive Device: Walker Platform gait improved since last seen by this TOLL BRIDGE ATTENDANT. Pt using FWW with platf and needs instruction and tactile nudges to position in walker for safety and to keep right foot from bumping in to FWW , leans heavily into FWW with flexed posture Wheelchair Training Does the Pt Use a Wheelchair?: Yes Wheel 50 ft with 2 turns (QC): 3 Type of Wheelchair: Manual needs much assist to guide the w/c Exercises Supine Ex: Bridging, Rolling, Heel Slides, Hip abd/add Supine Reps: 15 Seated Therapy Exercises: Ankle pumps, Sit to stand, Long arc quads, Hip flexion Seated Reps: 15 NuStep Minutes: 5 NuStep Workload: 2 Assessment Current Status: Good Progress gait improved, TRF SPT to left near Mod I, to right min assist to CGA PT Short Term Goals Short Term Goals Time Frame: May 19, 2020 Roll Left & Right: 4 Sit to lyin (met) Lying to sitting on side of be: 3 Chair/qkv-rl-tfqir transfer: 3 (met) Walk 10 feet: 3 (met) Does pt use a wc or scooter: Yes Wheel 50ft w/2 turns: 3 Wheel 150 feet: 3 PT Detention Goals Detention Goals PT Physician/Allergy/Immunology Goals Time Frame: Jun 02, 2020 Roll Left & Right (QC): 6 Sit to Lying (QC): 6 Lying-Sitting on Side/Bed(QC): 6 Sit to Stand (QC): 4 Chair/Gun-vm-Anogu Xfer(QC): 4 Toilet Transfer (QC): 4 Car Transfer (QC): 4 Does the Patient Walk: Yes Walk 10 feet (QC): 3 Walk 50ft with 2 Turns (QC): 3 Walk 150 ft (QC): 88 Walking 10ft on Uneven Surface: 3 1 Step (curb) (QC): 3 4 Steps (QC): 88 12 Steps (QC): 88 Picking up an Object (QC): 88 Does the Pt use WC or Scooter?: Yes Wheel 50 feet with 2 turns (QC: 6 Wheel 150 feet: 6 PT Plan Treatment/Plan Treatment Plan: Continue Plan of Care Treatment Plan: Bed Mobility, Education, Functional Activity Robbin, Functional Strength, Group Therapy, Gait, Safety, Therapeutic Exercise, Transfers Treatment Duration: May 13, 2020 Frequency: At least 5 of 7 days/Wk (IRF) Estimated Hrs Per Day: 1.5 hours per day Patient and/or Family Agrees t: Yes Safety Risks/Education Patient Education: Gait Training, Transfer Techniques, Correct Positioning, W/C Management, Disease Process, Safety Issues Teaching Recipient: Patient Teaching Methods: Demonstration, Discussion Response to Teaching: Verbalize Understanding, Return Demonstration, Reinforcement Needed Time/GCodes Time In: 900 Time Out: 1000 Total Billed Treatment Time: 60 Total Billed Treatment 1,WC15,GT15,EX15,FA15 JANA OROSCO TOLL BRIDGE ATTENDANT May 30, 2020 09:58
--- NOTE | 2020-05-30 10:29 | Speech Therapy Daily Note ---
Speech Daily Progress Note Subjective Date Seen by Provider: May 30, 2020 Time Seen by Provider: 00:30 Patient was resting in her recliner when I entered her room. She requested another cup of coffee which I brought her. Objective Patient completed a series of pictures "what's missing?" with 60% word finding given 25% verbal and/or visual cuing. Assessment Assessment Current Status: Fair Progress Treatment Plan Continue Plan of Care Speech Short Term Goals Short Term Goals Short Term Goals 1) The patient will complete cognitive tasks related to memory, safety awareness and problem solving at 80% with minimal cues. 2) The patient will complete speech tasks to improve intelligibility at 80% with minimal cues. 3) The patient will complete confrontational naming tasks at 90% with minimal cues. 4) The patient will complete OME for improved oral status for safe oral intake at 80% or greater with minimal cues. Speech Jail Goals Printer Machine Goals Patient will improve communication abilities and safe oral intake in order to return to prior level. Speech-Plan Patient/Family Goals Patient/Family Goals: Patient is scheduled to discharge to live with her daughter on 06/03/2020. Treatment Plan Speech Therapy Treatment Plan: Continue Plan of Care Treatment Duration: May 25, 2020 Frequency: 4 times per week (Patient will receive ST 4-5x per week) Estimated Hrs Per Day: .5 hour per day Rehab Potential: Fair Barriers to Learning: Patient's expressive aphasia, age Pt/Family Agrees to Plan: Yes Safety Risks/Education Teaching Recipient: Patient Teaching Methods: Demonstration, Discussion Response to Teaching: Verbalize Understanding, Return Demonstration Education Topics Provided: Continued safety within her room and with oral intake. Time Speech Therapy Time In: 08:30 Speech Therapy Time Out: 09:00 Total Billed Time: 30 Billed Treatment Time 1, OMAR, SHERYL Huang May 30, 2020 10:29
--- NOTE | 2020-05-30 12:27 | Progress Note - Urology ---
Progress Note-Urology Progress Notes/Assess & Plan Progress/Assessment & Plan CONTINUES WELL ON WEANING Final Diagnosis RETENTION TANIA MENDEZ MD May 30, 2020 12:27
--- NOTE | 2020-05-30 13:51 | Physical Therapy Daily Note ---
PT Daily Note-Current Subjective Pt. agrees to gait and toileting training. Wants to lay down after Rx Pain Location: No Pain Reported Mental Status Patient Orientation: Non-Verbal/Aphasic Transfers SCALE: Activities may be completed with or without assistive devices. 4-Laodlyhqki-ynwefkv completes the activity by him/herself with no assistance from a helper. 5-Set-up or Clean-up Assistance-helper sets up or cleans up; patient completes activity. [place] assists only prior to or following the activity. 4-Supervision or Touching Assistance-helper provides verbal cues and/or touching/steadying and/or contact guard assistance as patient completes activity. Assistance may be provided throughout the activity or intermittently. 3-Partial/Moderate Assistance-helper does LESS THAN HALF the effort. [place] lifts, holds or supports trunk or limbs, but provides less than half the effort. 2-Substantial/Maximal Assistance-helper does MORE THAN HALF the effort. [place] lifts or holds trunk or limbs and provides more than half the effort. 3-Fjiyuxaiq-nlqsfa does ALL the effort. Patient does none of the effort to complete the activity. Or, the assistance of 2 or more helpers is required for the patient to complete the activity. If activity was not attempted, code reason: 7-Patient Refused. 9-Not Applicable-not attempted and the patient did not perform the activity before the current illness, exacerbation or injury. 10-Not Attempted due to Environmental Limitations-(lack of equipment, weather restraints, etc.). 88-Not Attempted due to Medical Conditions or Safety Concerns. on off toilet, in out chair CGA, in out bed min to CGA Weight Bearing Right Lower Extremity: Right Full Weight Bearing Left Lower Extremity: Left Full Weight Bearing Gait Training Does the Patient Walk?: Yes Gait Assistive Device: Walker Platform 25 ft, 35 ft with platf FWW , further adjustments made for platf, min to CGA required, Treatments pt. toileted managing pants and cleaning indep Assessment Current Status: Good Progress PT Short Term Goals Short Term Goals Time Frame: May 19, 2020 Roll Left & Right: 4 Sit to lyin (met) Lying to sitting on side of be: 3 Chair/mhy-mz-edrnr transfer: 3 (met) Walk 10 feet: 3 (met) Does pt use a wc or scooter: Yes Wheel 50ft w/2 turns: 3 Wheel 150 feet: 3 PT Skilled Nursing Goals Skilled Nursing Goals PT Grade Checker Goals Time Frame: Jun 02, 2020 Roll Left & Right (QC): 6 Sit to Lying (QC): 6 Lying-Sitting on Side/Bed(QC): 6 Sit to Stand (QC): 4 Chair/Ojj-wl-Qouqu Xfer(QC): 4 Toilet Transfer (QC): 4 Car Transfer (QC): 4 Does the Patient Walk: Yes Walk 10 feet (QC): 3 Walk 50ft with 2 Turns (QC): 3 Walk 150 ft (QC): 88 Walking 10ft on Uneven Surface: 3 1 Step (curb) (QC): 3 4 Steps (QC): 88 12 Steps (QC): 88 Picking up an Object (QC): 88 Does the Pt use WC or Scooter?: Yes Wheel 50 feet with 2 turns (QC: 6 Wheel 150 feet: 6 PT Plan Treatment/Plan Treatment Plan: Continue Plan of Care Treatment Plan: Bed Mobility, Education, Functional Activity [place], Functional Strength, Group Therapy, Gait, Safety, Therapeutic Exercise, Transfers Treatment Duration: May 13, 2020 Frequency: At least 5 of 7 days/Wk (IRF) Estimated Hrs Per Day: 1.5 hours per day Patient and/or Family Agrees t: Yes Safety Risks/Education Patient Education: Gait Training, Transfer Techniques, Correct Positioning, Disease Process, Safety Issues Teaching Recipient: Patient Teaching Methods: Discussion Response to Teaching: Return Demonstration, Reinforcement Needed Time/GCodes Time In: 1330 Time Out: 1345 Total Billed Treatment Time: 15 Total Billed Treatment 1,FA15m JANA OROSCO MOTORCYCLE MAKER May 30, 2020 13:51
--- NOTE | 2020-05-30 14:05 | Occupational Ther Daily Note ---
OT Current Status-Daily Note Subjective No pain reported. Appearance Pt. up in chair. Agrees to work with OT. Mental Status/Objective Patient Orientation: Person ADL-Treatment Therapy Code Descriptions/Definitions Functional [place] Measure: 0=Not Assessed/NA 4=Minimal Assistance 1=Total Assistance 5=Supervision or Setup 2=Maximal Assistance 6=Modified [place] 3=Moderate Assistance 7=Complete IndependenceSCALE: Activities may be completed with or without assistive devices. 9-Egaijvpoyy-ucrpzqm completes the activity by him/herself with no assistance from a helper. 5-Set-up or Clean-up Assistance-helper sets up or cleans up; patient completes activity. [place] assists only prior to or following the activity. 4-Supervision or Touching Assistance-helper provides verbal cues and/or touching/steadying and/or contact guard assistance as patient completes activity. Assistance may be provided throughout the activity or intermittently. 3-Partial/Moderate Assistance-helper does LESS THAN HALF the effort. [place] lifts, holds or supports trunk or limbs, but provides less than half the effort. 2-Substantial/Maximal Assistance-helper does MORE THAN HALF the effort. [place] lifts or holds trunk or limbs and provides more than half the effort. 0-Qwwzardfp-cjvzny does ALL the effort. Patient does none of the effort to complete the activity. Or, the assistance of 2 or more helpers is required for the patient to complete the activity. If activity was not attempted, code reason: 7-Patient Refused. 9-Not Applicable-not attempted and the patient did not perform the activity before the current illness, exacerbation or injury. 10-Not Attempted due to Environmental Limitations-(lack of equipment, weather restraints, etc.). 88-Not Attempted due to Medical Conditions or Safety Concerns. Shower/Bathe Self (QC): 3 (Mod assist overall to shower and wash all parts. Max cues.) Upper Body Dressing (QC): 2 Lower Body Dressing (QC): 2 On/Off Footwear: 2 Other Treatment Pt. is able to stand from chair and ambulate with walker and min assist to shower. Once seated in shower, pt. had increased difficulty following cues to doff clothing. Pt. becomes agitated and upset, as she is struggling. OT attempts to calm her and encourage her. After shower, pt. transferred to wheelchair. OT took pt. to mirror in bathroom and encouraged her to brush her hair. She dabs at hair with brush, but is unable to do it efficiently. OT did this for her. Pt. able to self propel wheelchair with min assist and cues. Pt. engaged in therapy gym in series of visual motor exercises. Pt. having difficulty seeing anything placed on her right side, and encouraged to use her hand to find the item, and then follow to the left. Completed simple wooden puzzle with max cues and assistance to place the pieces correctly. Pt. having difficulty attending to right side, crossing midline, and following cues to complete simple task. Pt. taken back to room and transferred with CGA to reclining chair. Chair alarm set and all needs met. Education OT Patient Education: Correct positioning, Exercise program, Modified ADL techniques, Progress toward Goal/Update tx plan, Purpose of tx/functional activities, Reviewed precautions, Rehab process, Transfer techniques Teaching Recipient: Patient Teaching Methods: Demonstration, Discussion Response to Teaching: Reinforcement Needed OT Short Term Goals Short Term Goals Time Frame: May 26, 2020 Eatin Oral hygiene: 3 Toileting hygiene: 3 Shower/bathe self: 3 Upper body dressin Lower body dressin Putting on/taking off footwear: 3 OT Prison Goals Credit Analyst Goals Time Frame: Jun 09, 2020 Eating (QC): 4 Oral Hygiene (QC): 4 Toileting Hygiene (QC): 3 Shower/Bathe Self (QC): 3 Upper Body Dressing (QC): 5 Lower Body Dressing (QC): 4 On/Off Footwear (QC): 4 Additional Goals: 1-Demonstrate ADL Tasks, 2-Verbalize Understanding, 3-Im proveStrength/Robbin 1=Demonstrate adherence to instructed precautions during ADL tasks. 2=Patient will verbalize/demonstrate understanding of assistive devices/modifications for ADL. 3=Patient will improve strength/tolerance for activity to enable patient to perform ADL's. OT Education/Plan Problem List/Assessment Assessment: Decreased Activ Tolerance, Decreased UE Strength, Dependent Transfers, Impaired Cognition, Impaired Coordination, Impaired Funct Balance, Impaired I ADL's, Impaired Self-Care Skills, Restricted Funct UE ROM, Visual- Perceptual Deficit Visual perceptual issues difficult to pinpoint due to severe global aphasia. Discharge Recommendations Plan/Recommendations: Continue POC Therapy Discharge Recommendati: Scheduled Assistance, Home & Family, Post Acute OT Treatment Plan/Plan of Care Treatment,Training & Education: Yes Patient would benefit from OT for education, treatment and training to promote independence in ADL's, mobility, safety and/or upper extremity function for ADL's. Plan of Care: ADL Retraining, Caregiver Training, Cognitive Retraining, Functional Mobility, Group Exercise/Act as Ind, UE Funct Exercise/Act, UE Neuromus Re-Ed/Coord, Visual/Perceptual Retrain, W/C Management Training Treatment Duration: Jun 09, 2020 Frequency: At least 5 of 7 days/Wk (IRF) Estimated Hrs Per Day: 1.5 hours per day Agreement: Yes Rehab Potential: Fair Time/GCodes Start Time: 10:30 Stop Time: 11:45 Total Time Billed (hr/min): 75 Billed Treatment Time 1, ADL x 45minutes, FA x 30minutes RALPH LUO OT May 30, 2020 14:05
[2020-05-30] MEDS: TAMSULOSIN 0.4 MG (FLOMAX) CAP PO SCH (17:17)
[2020-05-30 18:30] VITALS: BP 147/67
[2020-05-30] MEDS: MELATONIN 3 MG TABLET PO PRN (20:03)
[2020-05-30] MEDS: ALPRAZolam 0.25 MG (XANAX) TAB PO PRN (20:03)
[2020-05-31] MEDS: BETHANECHOL 25 MG (URECHOLINE) TAB PO SCH (06:20)
[2020-05-31 06:35] VITALS: BP 164/71
[2020-05-31] MEDS: RT-BUDESONIDE NEBS 0.5 MG/2ML (PULMICORT) AMP IH SCH ×2 (08:36→18:57)
[2020-05-31] MEDS: RT-ALBUTEROL/IPRATROPIUM 3 ML (DUONEB) VIAL IH SCH ×2 (08:36→18:57)
--- NOTE | 2020-05-31 08:51 | PM&R Progress Note ---
Subjective HPI/CC On Admission Date Seen by Provider: May 31, 2020 Time Seen by Provider: 08:30 Subjective/Events-last exam 05/31/20: Pt dramatically better Walking very well Doing very well Voiding well BP was a little bit elevated earlier but now its normal 05/30/20: Labs are okay Bowels moved yesterday Urinating well, no urinary retention Discharge planned later this week 05/29/20: Decreasing Urecholine per Dr [place] now No pain reported No falls No incontinence 05/28/20: Not voiding very often Doesn't drink much during day No pain reported 05/27/20: Improved status Feeding herself now Dramatic improvement since admit No incontinence now DC accucheck BID 05/26/20: Voiding well now No catheter now Made her way to the commode on her own without help last night and urinated in her clothes on top of the commode No incontinence usually 05/25/20: Pt doing pretty well James is out, will evaluate whether she can void or not on her own Urocholine is at 50mg AC and HS Bowels are really moving well 05/24/20: Pt doing pretty well Re-inserted james due to retention Yeast infection will be managed with Diflucan and Monistat cream 05/23/20: Pt still doing pretty well Participation in therapy varies Cognition is an issue Overall doing well enough to remain stable 05/22/20: James cath still in place Urecholine 50mg dose now BM today 05/21/20: Likely will need catheter replaced No pain reported Feeder maintained adequate consumption 05/20/20: Patient about the same Requires a feeder to eat No pain reported Confusion is a limitation 05/19/20: Pt has varying participation with PT and OT Accu cheks changed to BID Will monitor pt closely Denies any pain Is a feeder 05/18/20: Re inserted the james since urinary retention continued Increasing oral fluids Urecholine was increased dose barron Bowels are moving 05/17/20: Xanax given last night Bowels moved yesterday Refusing to eat supper or breakfast today Agitated a bit today Post-void residual had 238 Hadnt voided since discontinued the cath yesterday 05/16/20: Dr. Houston will discontinue the catheter and evaluate voiding trial today Flomax and Urecholine maintained Bowels are moving Very difficult to recover from catastrophic stroke 05/15/20: Patient participating with therapy No pain reported Dr Houston consulted for james catheter 05/14/20: Patient denies pain Working well with structured therapies James cath still in place will need to DC soon Working on BM regimen Patient doing well Settling in well No pain reported Working with PT OT and ST Eating a bit more without aspiration No falls Checked meds and labs Conferred with RN Reviewed therapy notes Review of Systems Neurological: Weakness, Incoordination Objective Exam Vital Signs Vital Signs Date Time Temp Pulse Resp B/P (MAP) Pulse Ox O2 Delivery O2 Flow Rate FiO2 05/31/20 20:00 Room Air 05/31/20 18:57 96 05/31/20 17:40 36.4 74 18 144/64 (90) Capillary Refill : Less Than 3 Seconds General Appearance: No Apparent Distress, Anxious, Chronically ill, Thin HEENT: PERRL/EOMI, Normal ENT Inspection, Pharynx Normal Neck: Full Range of Motion, Normal Inspection, Non Tender, Supple, Carotid Bruit Respiratory: Chest Non Tender, Lungs Clear, No Accessory Muscle Use, No Respiratory Distress, Decreased Breath Sounds Cardiovascular: Regular Rate, Rhythm, No Edema, No Gallop, No JVD, No Murmur, Normal Peripheral Pulses Gastrointestinal: Normal Bowel Sounds, No Organomegaly, No Pulsatile Mass, Non Tender, Soft Back: Normal Inspection, No CVA Tenderness, No Vertebral Tenderness Extremity: Normal Capillary Refill, Normal Inspection, Normal Range of Motion (except right sided weakness), Non Tender, No Calf Tenderness, No Pedal Edema Neurologic/Psychiatric: Alert, No Motor/Sensory Deficits, Normal Mood/Affect, Abnormal instrumentation engineer II-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 FIM Transfers Therapy Code Descriptions/Definitions Functional [place] Measure: 0=Not Assessed/NA 4=Minimal Assistance 1=Total Assistance 5=Supervision or Setup 2=Maximal Assistance 6=Modified [place] 3=Moderate Assistance 7=Complete IndependenceSCALE: Activities may be completed with or without assistive devices. 3-Qblngqigif-xxesebm completes the activity by him/herself with no assistance from a helper. 5-Set-up or Clean-up Assistance-helper sets up or cleans up; patient completes activity. [place] assists only prior to or following the activity. 4-Supervision or Touching Assistance-helper provides verbal cues and/or touching /steadying and/or contact guard assistance as patient completes activity. Assistance may be provided throughout the activity or intermittently. 3-Partial/Moderate Assistance-helper does LESS THAN HALF the effort. [place] lifts, holds or supports trunk or limbs, but provides less than half the effort. 2-Substantial/Maximal Assistance-helper does MORE THAN HALF the effort. [place] lifts or holds trunk or limbs and provides more than half the effort. 2-Phhenfatz-logygm does ALL the effort. Patient does none of the effort to complete the activity. Or, the assistance of 2 or more helpers is required for the patient to complete the activity. If activity was not attempted, code reason: 7-Patient Refused. 9-Not Applicable-not attempted and the patient did not perform the activity before the current illness, exacerbation or injury. 10-Not Attempted due to Environmental Limitations-(lack of equipment, weather restraints, etc.). 88-Not Attempted due to Medical Conditions or Safety Concerns. Roll Left to Right (QC): 6 Sit to Lying (QC): 6 Sit to Stand (QC): 6 Chair/Jvl-wq-Ykgik Xfer(QC): 4 Car Transfer (QC): 3 Gait Training Does the Patient Walk?: Yes Distance: 40ft x3 Walk 10 feet (QC): 4 Walk 50 ft with 2 Turns(QC): 4 Walk 150 ft (QC): 4 Walking 10ft/uneven surface-QC: 88 Gait Persons Needed: 1 Gait Assistive Device: Walker Platform Wheelchair Training Does the Pt Use a Wheelchair?: Yes Distance: 150'x3 Wheel 50 ft with 2 turns (QC): 3 Wheel 150 ft (QC): 5 Type of Wheelchair: Manual Stair Training 1 Step (curb) (QC): 88 4 Steps (QC): 88 12 Steps (QC): 88 Balance Picking up an Object (QC): 88 ADL-Treatment Eating (QC): 4 Oral Hygiene (QC): 5 Bathing Location: L Arm, R Arm, L Upper Leg, R Upper Leg, L Lower Leg (including foot), R Lower Leg (including foot), Chest, Abdomen, Buttocks, Perineal Area Shower/Bathe Self (QC): 3 (Mod assist overall to shower and wash all parts. Max cues.) Upper Body Dressing (QC): 2 Lower Body Dressing (QC): 2 On/Off Footwear (QC): 2 Toileting Hygiene (QC): 7 Toilet Transfer (QC): 7 (Pt. 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 Ensure adequate anticoagulation 2. PT, OT, and ANGULAR DEVELOPER eval's and treat 3. Oxygen via NC- wean as tolerated 4. Resume Home medications 5. Fall precautions 6. Dietary consult 7. DVT prophylaxis 05/13/20: Patient participating well No pain reported Continue current meds Advance diet 05/14/20: James DC soon Continue home meds Therapies to continue protocol 05/15/20: Dr Houston appreciated Monitor BP Monitor labs 05/16/20: Bladder meds Appreciate Dr Houston PT OT ST 05/17/20: Voiding trial Monitor closely Variable moods 05/18/20: Monitor BP Encourage PO intake James cath management 05/19/20: Encourage participation with therapies Monitor james cath 05/20/20: Monitor closely Bladder management 05/21/20: Monitor closely Cath maintained? 05/22/20: Cath in place Check labs in am Increased dose of Urecholine 05/23/20: Monitor bladder function Increased dose of Urecholine 05/24/20: Maintain james catheter IRF protocol Family evaluating DC plans 05/25/20: DC next week James cath in place now Monitor for falls 05/26/20: Voiding well without cath now Monitor closely 05/27/20: DC accuchecks Dramatic improvement since admit 05/28/20: Monitor dysphagia PT OT Monitor voiding 05/29/20: Decrease Urecholine Monitor BP Fall risk 05/30/20: Monitor voiding Fall risk DC later this week 05/31/20: Monitor closely DC planning (1) CVA (cerebral vascular accident) (2) Dysarthria (3) Dysphagia (4) PEG (percutaneous endoscopic gastrostomy) status (5) Expressive aphasia (6) Smoker (7) COPD (chronic obstructive pulmonary disease) (8) CAD (coronary artery disease) (9) Hx of CABG (10) James catheter in place (11) Retention of urine BECKI WAGNER DO May 31, 2020 08:51
[2020-05-31 08:54] VITALS: BP 139/60
[2020-05-31] MEDS: DOCUSATE SODIUM 100 MG (COLACE) CAP PO SCH ×2 (08:55→20:58)
[2020-05-31] MEDS: SENNA W/DOCUSATE (SENOKOT S) TABLET PO SCH ×2 (08:55→20:57)
[2020-05-31] MEDS: ASPIRIN 81 MG CHEW (CHILDREN'S ASA) PO SCH (08:55)
[2020-05-31] MEDS: CLOPIDOGREL 75 MG (PLAVIX) TABLET PO SCH (08:55)
[2020-05-31] MEDS: FAMOTIDINE 20 MG (PEPCID) TABLET PO SCH (08:55)
[2020-05-31] MEDS: amLODIPine 5 MG (NORVASC) TAB PO SCH (08:56)
[2020-05-31] MEDS: CARVEDILOL 3.125 MG (COREG) TABLET PO SCH ×2 (08:56→20:57)
[2020-05-31] MEDS: polyethylene glycoL POWDER 17 GM (MIRALAX) PACK PO SCH ×2 (09:21→20:57)
--- NOTE | 2020-05-31 10:02 | Physical Therapy Daily Note ---
PT Daily Note-Current Subjective Pt is agreeable to PT. Throughout treatment, pt often says, "oh good" and "okay baby". Pain Numeric Pain Scale: 0-No Pain Location: No Pain Reported Transfers SCALE: Activities may be completed with or without assistive devices. 1-Pzdxbtedmf-pgfrycg completes the activity by him/herself with no assistance from a helper. 5-Set-up or Clean-up Assistance-helper sets up or cleans up; patient completes activity. [place] assists only prior to or following the activity. 4-Supervision or Touching Assistance-helper provides verbal cues and/or touching/steadying and/or contact guard assistance as patient completes activity. Assistance may be provided throughout the activity or intermittently. 3-Partial/Moderate Assistance-helper does LESS THAN HALF the effort. [place] lifts, holds or supports trunk or limbs, but provides less than half the effort. 2-Substantial/Maximal Assistance-helper does MORE THAN HALF the effort. [place] lifts or holds trunk or limbs and provides more than half the effort. 5-Vgzpywwlj-lvzurn does ALL the effort. Patient does none of the effort to complete the activity. Or, the assistance of 2 or more helpers is required for the patient to complete the activity. If activity was not attempted, code reason: 7-Patient Refused. 9-Not Applicable-not attempted and the patient did not perform the activity before the current illness, exacerbation or injury. 10-Not Attempted due to Environmental Limitations-(lack of equipment, weather restraints, etc.). 88-Not Attempted due to Medical Conditions or Safety Concerns. Sit to Stand (QC): 4 (CGA with cues for sequencing. Pt requires reminders to push up from the chair. ) Chair/Fdf-zx-Ujick Xfer(QC): 3 (min assist to manage the walker, safety with backing up and cues for safety. ) Car Transfer (QC): 3 (min assist to manage the walker with heavy cues for sequencing and safety. Pt able to lift right leg in car but with cues to initiate. ) Weight Bearing Right Lower Extremity: Right Full Weight Bearing Left Lower Extremity: Left Full Weight Bearing Gait Training Does the Patient Walk?: Yes Walk 10 feet (QC): 4 Walk 50 ft with 2 Turns(QC): 4 Walk 150 ft (QC): 4 (CGA with intermitted cues for sequencing and safety. intermittent assist to manage the walker. ) Gait Assistive Device: Walker Platform Decreased heel strike/toe off B with shuffled gait with decreased step length. tends to walk outside the walker and needs intermittent assist to manage the walker. Requires assist to avoid obstacles with verbal and tactile cues. Stair Training Stair Training: Handrails/: uses walker 1 Step (curb) (QC): 3 (min assist for balance; 100% cues for sequencing and safety. performed x 2 reps. used the short pink step in gym) Exercises NuStep Minutes: 12 (working on LE strength and functional act tolerance as well as coordinated U/LE movement. ) Treatments Functional transfers, functional gait, steps, functional strengthening and repetition with sequencing on multiple kinds of sit to stand transfers. Pt is motivated and cooperative. Continued skilled therapy services will enhance patient mobility and further decrease the burden of caregiver support at discharge. Assessment Current Status: Good Progress Pt is progressing well. Her gait has improved, although still requires much assist. She is impulsive at times but corrects easily with cues and seems to follow cues well. She does have some right side neglect but will attend with cues. PT Short Term Goals Short Term Goals Time Frame: May 19, 2020 Roll Left & Right: 4 Sit to lyin (met) Lying to sitting on side of be: 3 Chair/spl-tf-nkqmc transfer: 3 (met) Walk 10 feet: 3 (met) Does pt use a wc or scooter: Yes Wheel 50ft w/2 turns: 3 Wheel 150 feet: 3 PT Ticket Speculator Goals Ticket Speculator Goals PT Senior Care Goals Time Frame: Jun 02, 2020 Roll Left & Right (QC): 6 Sit to Lying (QC): 6 Lying-Sitting on Side/Bed(QC): 6 Sit to Stand (QC): 4 Chair/Vow-qm-Axyaz Xfer(QC): 4 Toilet Transfer (QC): 4 Car Transfer (QC): 4 Does the Patient Walk: Yes Walk 10 feet (QC): 3 (met) Walk 50ft with 2 Turns (QC): 3 (met) Walk 150 ft (QC): 88 Walking 10ft on Uneven Surface: 3 1 Step (curb) (QC): 3 4 Steps (QC): 88 12 Steps (QC): 88 Picking up an Object (QC): 88 Does the Pt use WC or Scooter?: Yes Wheel 50 feet with 2 turns (QC: 6 Wheel 150 feet: 6 PT Plan Problem List Problem List: Activity Tolerance, Functional Strength, Safety, Balance, Gait, Transfer, Bed Mobility Treatment/Plan Treatment Plan: Continue Plan of Care Treatment Plan: Bed Mobility, Education, Functional Activity [place], Functional Strength, Group Therapy, Gait, Safety, Therapeutic Exercise, Transfers Treatment Duration: May 13, 2020 Frequency: At least 5 of 7 days/Wk (IRF) Estimated Hrs Per Day: 1.5 hours per day Patient and/or Family Agrees t: Yes Safety Risks/Education Patient Education: Transfer Techniques, Safety Issues Teaching Recipient: Patient Teaching Methods: Demonstration, Discussion Response to Teaching: Return Demonstration, Reinforcement Needed Discharge Recommendations Therapy Discharge Recommendati: Post Acute PT ([facility] PT) Time/GCodes Time In: 845 Time Out: 1000 Total Billed Treatment Time: 75 Total Billed Treatment visit GT 30 FA 30 EX 15 MARGOT CHAVEZ PT May 31, 2020 10:01
[2020-05-31] MEDS: MICONAZOLE NITRATE 2% CRM 30 GM TP SCH ×2 (10:08→20:58)
--- NOTE | 2020-05-31 10:45 | Progress Note - Urology ---
Progress Note-Urology Progress Notes/Assess & Plan Progress/Assessment & Plan DC URECHOLINE Final Diagnosis RETENTION (RESOLVED) TANIA MENDEZ MD May 31, 2020 10:45
--- NOTE | 2020-05-31 11:55 | Occupational Ther Daily Note ---
OT Current Status-Daily Note Subjective No pain reported. Mental Status/Objective Patient Orientation: Person ADL-Treatment Therapy Code Descriptions/Definitions Functional [place] Measure: 0=Not Assessed/NA 4=Minimal Assistance 1=Total Assistance 5=Supervision or Setup 2=Maximal Assistance 6=Modified [place] 3=Moderate Assistance 7=Complete IndependenceSCALE: Activities may be completed with or without assistive devices. 3-Pakzchlgor-jhinxmz completes the activity by him/herself with no assistance from a helper. 5-Set-up or Clean-up Assistance-helper sets up or cleans up; patient completes activity. [place] assists only prior to or following the activity. 4-Supervision or Touching Assistance-helper provides verbal cues and/or touching/steadying and/or contact guard assistance as patient completes activity. Assistance may be provided throughout the activity or intermittently. 3-Partial/Moderate Assistance-helper does LESS THAN HALF the effort. [place] lifts, holds or supports trunk or limbs, but provides less than half the effort. 2-Substantial/Maximal Assistance-helper does MORE THAN HALF the effort. [place] lifts or holds trunk or limbs and provides more than half the effort. 2-Wgtgwdubw-inzgoi does ALL the effort. Patient does none of the effort to complete the activity. Or, the assistance of 2 or more helpers is required for the patient to complete the activity. If activity was not attempted, code reason: 7-Patient Refused. 9-Not Applicable-not attempted and the patient did not perform the activity before the current illness, exacerbation or injury. 10-Not Attempted due to Environmental Limitations-(lack of equipment, weather restraints, etc.). 88-Not Attempted due to Medical Conditions or Safety Concerns. Other Treatment Pt. up in chair. Agrees to work with OT. Pt. transfers to wheelchair from reclining chair with min assist for sit-stand. OT encouraged pt. to self propel wheelchair to therapy gym. Pt. has difficulty with mikhail of this. OT takes her to gym and engages pt. in series of different activities to promote fine motor coordination, use of right UE, crossing midline, bilateral coordination, attending to right side, and cognition. Pt. having great difficulty this date and becomes upset. Pt. unable to name specific pieces of food, or point to them when asked what they are. She is unable to understand rhythm of reciprocal movements with UE, when OT uses aline wrap to put right hand on angelica system. OT removes this and moves to next activity. Max cues given for fine motor and visual activity with matching specific shaped plastic piece with corresponding shape. This was still very difficult for pt. Nursing notified and okay with OT taking pt. to first floor, and working on relaxation activities. Engaged pt. in looking at fish in tank, and attending to right side. Went to chapel and attempted to talk with pt. and provide encouragement. Pt. indicates that she is upset, and knows that things "are different." Continue to encourage pt. and pt. is taken back to therapy gym on second floor. Pt. stood at parallel bars and practiced weight shifts, picking up feet in place, and looking at self in mirror. Max cues given to sequence these steps. Taken back to room and transferred to reclining chair with min assist. All needs met. Education OT Patient Education: Correct positioning, Exercise program, Modified ADL techniques, Progress toward Goal/Update tx plan, Purpose of tx/functional activities, Reviewed precautions, Rehab process, Transfer techniques Teaching Recipient: Patient Teaching Methods: Demonstration, Discussion Response to Teaching: Verbalize Understanding, Return Demonstration OT Short Term Goals Short Term Goals Time Frame: May 26, 2020 Eatin Oral hygiene: 3 Toileting hygiene: 3 Shower/bathe self: 3 Upper body dressin Lower body dressin Putting on/taking off footwear: 3 OT [facility] Goals [facility] Goals Time Frame: Jun 09, 2020 Eating (QC): 4 Oral Hygiene (QC): 4 Toileting Hygiene (QC): 3 Shower/Bathe Self (QC): 3 Upper Body Dressing (QC): 5 Lower Body Dressing (QC): 4 On/Off Footwear (QC): 4 Additional Goals: 1-Demonstrate ADL Tasks, 2-Verbalize Understanding, 3- ImproveStrength/Robbin 1=Demonstrate adherence to instructed precautions during ADL tasks. 2=Patient will verbalize/demonstrate understanding of assistive devices/modifications for ADL. 3=Patient will improve strength/tolerance for activity to enable patient to perform ADL's. OT Education/Plan Problem List/Assessment Assessment: Decreased Activ Tolerance, Decreased Safety Aware, Decreased UE Str ength, Dependent Transfers, Impaired Cognition, Impaired Coordination, Impaired Funct Balance, Impaired I ADL's, Impaired Self-Care Skills, Restricted Funct UE ROM, Visual-Perceptual Deficit Visual perceptual issues difficult to pinpoint due to severe global aphasia. Discharge Recommendations Plan/Recommendations: Continue POC Treatment Plan/Plan of Care Treatment,Training & Education: Yes Patient would benefit from OT for education, treatment and training to promote independence in ADL's, mobility, safety and/or upper extremity function for ADL's. Plan of Care: ADL Retraining, Caregiver Training, Cognitive Retraining, Functional Mobility, Group Exercise/Act as Ind, UE Funct Exercise/Act, UE Neuromus Re-Ed/Coord, Visual/Perceptual Retrain, W/C Management Training Treatment Duration: Jun 09, 2020 Frequency: At least 5 of 7 days/Wk (IRF) Estimated Hrs Per Day: 1.5 hours per day Agreement: Yes Rehab Potential: Fair Time/GCodes Start Time: 09:55 Stop Time: 11:10 Total Time Billed (hr/min): 75 Billed Treatment Time 1, FA x 75minutes RALPH LUO OT May 31, 2020 11:55
--- NOTE | 2020-05-31 12:40 | Speech Therapy Daily Note ---
Speech Daily Progress Note Subjective Date Seen by Provider: May 31, 2020 Time Seen by Provider: 00:30 Patient was sitting up in her recliner eating her lunch. Objective Patient demonstrated utilizing compensatory strategies as trained at 90% with minimal cues. Assessment Assessment Current Status: Good Progress Treatment Plan Continue Plan of Care Speech Short Term Goals Short Term Goals Short Term Goals 1) The patient will complete cognitive tasks related to memory, safety awareness and problem solving at 80% with minimal cues. 2) The patient will complete speech tasks to improve intelligibility at 80% with minimal cues. 3) The patient will complete confrontational naming tasks at 90% with minimal cues. 4) The patient will complete OME for improved oral status for safe oral intake at 80% or greater with minimal cues. Speech Manager [place] Goals Shelter Goals Patient will improve communication abilities and safe oral intake in order to return to prior level. Speech-Plan Patient/Family Goals Patient/Family Goals: Patient is scheduled to discharge on 06/03/2020 to live with her daughter. Treatment Plan Speech Therapy Treatment Plan: Continue Plan of Care Treatment Duration: May 25, 2020 Frequency: 4 times per week (Patient will receive ST 4-5x per week) Estimated Hrs Per Day: .5 hour per day Rehab Potential: Fair Barriers to Learning: Patient's expressive aphasia, medical status Pt/Family Agrees to Plan: Yes Safety Risks/Education Teaching Recipient: Patient Teaching Methods: Demonstration, Discussion Response to Teaching: Verbalize Understanding, Return Demonstration Education Topics Provided: Continued safety with oral intake, communication of wants/needs Time Speech Therapy Time In: 12:30 Speech Therapy Time Out: 13:00 Total Billed Time: 30 Billed Treatment Time 1, SLAMIE, DYST SHREYL Mckenzie May 31, 2020 12:40
--- NOTE | 2020-05-31 13:16 | NUR ---
CM/SS DISCHARGE PLANNING Patient's discharge date is this 06/03/20. Confirmed with daughter Rula Junior they are prepared for her arrival. DME: Ordered Right Platform FWW and Wheelchair through [employer]. Agency to explore Medicare benefits, requesting wheelchair from Medicare and private pay platform walker. HHC: Referral completed with [facility] for RN PT OT ST, other closest agencies in service area do not have speech therapist. CAREGIVERS: Rula reports she has not been able to secure private pay caregivers due to shortage of persons available in their service area. She is working in partnership with her boss to try to signal worker helper so that she can be there with her mom and/or go into work after her spouse comes home. KANCARE: Application submitted, Rula states she was able to speak with someone who indicated they would move the request into an expedited category. The goal is to get the HCBS Waiver and in-home caregivers funded by Medicaid. Continue toward finalization of all post hospital resources and supports.
--- NOTE | 2020-05-31 14:23 | Progress Note - Cardiology ---
Cardiology SOAP Progress Note Subjective: Sitting up in recliner at the bedside. No c/o CP, dyspnea, palpitations, syncope or near syncope. Objective: I&O/Vital Signs 06/01/20 05:17 Temp 36.1 Pulse 82 Resp 18 B/P (MAP) 149/67 (94) Pulse Ox 96 O2 Delivery Room Air 06/01/20 00:00 Intake Total 720 ml Balance 720 ml Constitutional: AAO x 3, well-developed, well-nourished, other (mild expressive aphasia) Respiratory: No accessory muscle use, No respiratory distress; chest expansion is symmetric, chest is bilaterally symmetric, lungs clear to auscultation Cardiovascular: regular rate-rhythm; No JVD; S1 and S2 Gastrointestional: No tender; soft, round, audible bowel sounds Extremities: no lower extremity edema bilateral Neurologic/Psychiatric: other (RUE and RLE weakness) Results/Procedures: Labs A/P: Assessment: 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 Coronary artery disease status post CABG 3 Hypertension Hyperlipidemia Questionable peripheral arterial disease with ischemic event after her bypass has improved after conservative management, continue on Plavix Diabetes mellitus, followed and managed by primary care physician Debility, receiving physical therapy Plan: Continue current cardiac regimen Monitor lab LISA DUMAS May 31, 2020 14:23
--- NOTE | 2020-05-31 16:27 | Progress Note - Cardiology ---
Cardiology SOAP Progress Note Subjective: No cp or palp or syncope or shortness of breath at rest Gen weakness and malaise present Objective: I&O/Vital Signs 05/31/20 05/31/20 05/31/20 05/31/20 06:35 08:37 08:54 09:00 Temp 36.2 Pulse 84 78 Resp 20 B/P (MAP) 164/71 (102) 139/60 (86) Pulse Ox 98 98 O2 Delivery Room Air Room Air Room Air 05/31/20 00:00 Intake Total 960 ml Balance 960 ml Constitutional: AAO x 3, well-developed, well-nourished, other (mild expressive aphasia) Respiratory: No accessory muscle use, No respiratory distress; chest expansion is symmetric, chest is bilaterally symmetric, lungs clear to auscultation Cardiovascular: regular rate-rhythm; No JVD; S1 and S2 Gastrointestional: No tender; soft, round, audible bowel sounds Extremities: no lower extremity edema bilateral Neurologic/Psychiatric: other (RUE and RLE weakness) Results/Procedures: Labs Laboratory Tests 05/30/20 04:45 A/P: Assessment: 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 Coronary artery disease status post CABG 3 Hypertension Hyperlipidemia Questionable peripheral arterial disease with ischemic event after her bypass has improved after conservative management, continue on Plavix Diabetes mellitus, followed and managed by primary care physician Debility, receiving physical therapy Plan: Continue current cardiac regimen Monitor lab We have reviewed Dr. Ramos's progress notes ABEL LAUREN MD FACP FAC CCDS May 31, 2020 16:27
[2020-05-31 17:40] VITALS: BP 144/64
[2020-05-31] MEDS: ALPRAZolam 0.25 MG (XANAX) TAB PO PRN (18:06)
[2020-05-31] MEDS: TAMSULOSIN 0.4 MG (FLOMAX) CAP PO SCH (18:06)
[2020-05-31] MEDS: MELATONIN 3 MG TABLET PO PRN (20:57)
[2020-06-01 05:17] VITALS: BP 149/67
--- NOTE | 2020-06-01 05:56 | PM&R Progress Note ---
Subjective HPI/CC On Admission Date Seen by Provider: Jun 01, 2020 Time Seen by Provider: 08:30 Subjective/Events-last exam 06/01/20: Very constipated will give all laxatives today and a soap suds enema if needed Overall feels pretty good about DC plan for Saturday05/31/20: Pt dramatically better Walking very well Doing very well Voiding well BP was a little bit elevated earlier but now its normal 05/30/20: Labs are okay Bowels moved yesterday Urinating well, no urinary retention Discharge planned later this week 05/29/20: Decreasing Urecholine per Dr Houston now No pain reported No falls No incontinence 05/28/20: Not voiding very often Doesn't drink much during day No pain reported 05/27/20: Improved status Feeding herself now Dramatic improvement since admit No incontinence now DC accucheck BID 05/26/20: Voiding well now No catheter now Made her way to the commode on her own without help last night and urinated in her clothes on top of the commode No incontinence usually 05/25/20: Pt doing pretty well James is out, will evaluate whether she can void or not on her own Urocholine is at 50mg AC and HS Bowels are really moving well 05/24/20: Pt doing pretty well Re-inserted james due to retention Yeast infection will be managed with Diflucan and Monistat cream 05/23/20: Pt still doing pretty well Participation in therapy varies Cognition is an issue Overall doing well enough to remain stable 05/22/20: James cath still in place Urecholine 50mg dose now BM today 05/21/20: Likely will need catheter replaced No pain reported Feeder maintained adequate consumption 05/20/20: Patient about the same Requires a feeder to eat No pain reported Confusion is a limitation 05/19/20: Pt has varying participation with PT and OT Accu cheks changed to BID Will monitor pt closely Denies any pain Is a feeder 05/18/20: Re inserted the james since urinary retention continued Increasing oral fluids Urecholine was increased dose barron Bowels are moving 05/17/20: Xanax given last night Bowels moved yesterday Refusing to eat supper or breakfast today Agitated a bit today Post-void residual had 238 Hadnt voided since discontinued the cath yesterday 05/16/20: Dr. Houston will discontinue the catheter and evaluate voiding trial today Flomax and Urecholine maintained Bowels are moving Very difficult to recover from catastrophic stroke 05/15/20: Patient participating with therapy No pain reported Dr Houston consulted for james catheter 05/14/20: Patient denies pain Working well with structured therapies James cath still in place will need to DC soon Working on BM regimen Patient doing well Settling in well No pain reported Working with PT OT and ST Eating a bit more without aspiration No falls Checked meds and labs Conferred with RN Reviewed therapy notes Review of Systems General: Fatigue Neurological: Weakness, Incoordination Objective Exam Vital Signs Vital Signs Date Time Temp Pulse Resp B/P (MAP) Pulse Ox O2 Delivery O2 Flow Rate FiO2 06/01/20 20:00 Room Air 06/01/20 19:26 95 06/01/20 17:25 36.8 77 18 159/70 (99) Capillary Refill : Less Than 3 Seconds General Appearance: No Apparent Distress, Anxious, Chronically ill, Thin HEENT: PERRL/EOMI, Normal ENT Inspection, Pharynx Normal Neck: Full Range of Motion, Normal Inspection, Non Tender, Supple, Carotid Bruit Respiratory: Chest Non Tender, Lungs Clear, No Accessory Muscle Use, No Respiratory Distress, Decreased Breath Sounds Cardiovascular: Regular Rate, Rhythm, No Edema, No Gallop, No JVD, No Murmur, Normal Peripheral Pulses Gastrointestinal: Normal Bowel Sounds, No Organomegaly, No Pulsatile Mass, Non Tender, Soft Back: Normal Inspection, No CVA Tenderness, No Vertebral Tenderness Extremity: Normal Capillary Refill, Normal Inspection, Normal Range of Motion (except right sided weakness), Non Tender, No Calf Tenderness, No Pedal Edema Neurologic/Psychiatric: Alert, No Motor/Sensory Deficits, Normal Mood/Affect, Abnormal surgical consultant II-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 FIM Transfers Therapy Code Descriptions/Definitions Functional [place] Measure: 0=Not Assessed/NA 4=Minimal Assistance 1=Total Assistance 5=Supervision or Setup 2=Maximal Assistance 6=Modified [place] 3=Moderate Assistance 7=Complete IndependenceSCALE: Activities may be completed with or without assistive devices. 0-Hdybjoamsl-vlyicks completes the activity by him/herself with no assistance from a helper. 5-Set-up or Clean-up Assistance-helper sets up or cleans up; patient completes activity. [place] assists only prior to or following the activity. 4-Supervision or Touching Assistance-helper provides verbal cues and/or touching/steadying and/or contact guard assistance as patient completes activity. Assistance may be provided throughout the activity or intermittently. 3-Partial/Moderate Assistance-helper does LESS THAN HALF the effort. [place] lifts, holds or supports trunk or limbs, but provides less than half the effort. 2-Substantial/Maximal Assistance-helper does MORE THAN HALF the effort. [place] lifts or holds trunk or limbs and provides more than half the effort. 8-Qatnndmoo-fslisy does ALL the effort. Patient does none of the effort to complete the activity. Or, the assistance of 2 or more helpers is required for the patient to complete the activity. If activity was not attempted, code reason: 7-Patient Refused. 9-Not Applicable-not attempted and the patient did not perform the activity before the current illness, exacerbation or injury. 10-Not Attempted due to Environmental Limitations-(lack of equipment, weather restraints, etc.). 88-Not Attempted due to Medical Conditions or Safety Concerns. Roll Left to Right (QC): 6 Sit to Lying (QC): 6 Sit to Stand (QC): 4 (CGA with cues for sequencing. Pt requires reminders to push up from the chair. ) Chair/Uzb-vk-Zrnra Xfer(QC): 3 (min assist to manage the walker, safety with backing up and cues for safety. ) Car Transfer (QC): 3 (min assist to manage the walker with heavy cues for sequencing and safety. Pt able to lift right leg in car but with cues to initiate. ) Gait Training Does the Patient Walk?: Yes Distance: 40ft x3 Walk 10 feet (QC): 4 Walk 50 ft with 2 Turns(QC): 4 Walk 150 ft (QC): 4 (CGA with intermitted cues for sequencing and safety. intermittent assist to manage the walker. ) Walking 10ft/uneven surface-QC: 88 Gait Persons Needed: 1 Gait Assistive Device: Walker Platform Wheelchair Training Does the Pt Use a Wheelchair?: Yes Distance: 150'x3 Wheel 50 ft with 2 turns (QC): 3 Wheel 150 ft (QC): 5 Type of Wheelchair: Manual Stair Training Stair Training: Handrails/: uses walker 1 Step (curb) (QC): 3 (min assist for balance; 100% cues for sequencing and safety. performed x 2 reps. used the short pink step in gym) 4 Steps (QC): 88 12 Steps (QC): 88 Balance Picking up an Object (QC): 88 ADL-Treatment Eating (QC): 4 Oral Hygiene (QC): 5 Bathing Location: L Arm, R Arm, L Upper Leg, R Upper Leg, L Lower Leg (including foot), R Lower Leg (including foot), Chest, Abdomen, Buttocks, Perineal Area Shower/Bathe Self (QC): 3 (Mod assist overall to shower and wash all parts. Max cues.) Upper Body Dressing (QC): 2 Lower Body Dressing (QC): 2 On/Off Footwear (QC): 2 Toileting Hygiene (QC): 7 Toilet Transfer (QC): 7 (Pt. 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 Ensure adequate anticoagulation 2. PT, OT, and INSULATION BLANKET MAKER eval's and treat 3. Oxygen via NC- wean as tolerated 4. Resume Home medications 5. Fall precautions 6. Dietary consult 7. DVT prophylaxis 05/13/20: Patient participating well No pain reported Continue current meds Advance diet 05/14/20: James DC soon Continue home meds Therapies to continue protocol 05/15/20: Dr Houston appreciated Monitor BP Monitor labs 05/16/20: Bladder meds Appreciate Dr Houston PT OT ST 05/17/20: Voiding trial Monitor closely Variable moods 05/18/20: Monitor BP Encourage PO intake James cath management 05/19/20: Encourage participation with therapies Monitor james cath 05/20/20: Monitor closely Bladder management 05/21/20: Monitor closely Cath maintained? 05/22/20: Cath in place Check labs in am Increased dose of Urecholine 05/23/20: Monitor bladder function Increased dose of Urecholine 05/24/20: Maintain james catheter IRF protocol Family evaluating DC plans 05/25/20: DC next week James cath in place now Monitor for falls 05/26/20: Voiding well without cath now Monitor closely 05/27/20: DC accuchecks Dramatic improvement since admit 05/28/20: Monitor dysphagia PT OT Monitor voiding 05/29/20: Decrease Urecholine Monitor BP Fall risk 05/30/20: Monitor voiding Fall risk DC later this week 05/31/20: Monitor closely DC planning 06/01/20: Monitor constipation DC planned Saturday (1) CVA (cerebral vascular accident) (2) Dysarthria (3) Dysphagia (4) PEG (percutaneous endoscopic gastrostomy) status (5) Expressive aphasia (6) Smoker (7) COPD (chronic obstructive pulmonary disease) (8) CAD (coronary artery disease) (9) Hx of CABG (10) James catheter in place (11) Retention of urine BECKI WAGNER DO Jun 01, 2020 05:56
[2020-06-01] MEDS: SENNA W/DOCUSATE (SENOKOT S) TABLET PO SCH ×2 (08:27→19:53)
[2020-06-01] MEDS: FAMOTIDINE 20 MG (PEPCID) TABLET PO SCH (08:27)
[2020-06-01] MEDS: ASPIRIN 81 MG CHEW (CHILDREN'S ASA) PO SCH (08:27)
[2020-06-01] MEDS: polyethylene glycoL POWDER 17 GM (MIRALAX) PACK PO SCH ×2 (08:28→19:54)
[2020-06-01] MEDS: amLODIPine 5 MG (NORVASC) TAB PO SCH (08:28)
[2020-06-01] MEDS: DOCUSATE SODIUM 100 MG (COLACE) CAP PO SCH ×2 (08:28→19:54)
[2020-06-01] MEDS: MICONAZOLE NITRATE 2% CRM 30 GM TP SCH ×2 (08:28→19:54)
[2020-06-01] MEDS: CARVEDILOL 3.125 MG (COREG) TABLET PO SCH ×2 (08:28→19:54)
[2020-06-01] MEDS: CLOPIDOGREL 75 MG (PLAVIX) TABLET PO SCH (08:28)
--- NOTE | 2020-06-01 08:57 | Physical Therapy Daily Note ---
PT Daily Note-Current Subjective Pt. in bathroom with nursing, c/o constipation , nurse present and reports she will give miralax and possibly a suppository. Pt. agrees with this GLOBAL CLIMATE CHANGE ANALYST to drink warmed prune juice and ice cold water back to back in short time span as well as some walking to attempt to get her bowels moving. Mental Status Patient Orientation: Non-Verbal/Aphasic Attachments: Other-See Comments (mask while out of room) Transfers SCALE: Activities may be completed with or without assistive devices. 0-Gpnyqrrfwk-dmvccwl completes the activity by him/herself with no assistance from a helper. 5-Set-up or Clean-up Assistance-helper sets up or cleans up; patient completes activity. [place] assists only prior to or following the activity. 4-Supervision or Touching Assistance-helper provides verbal cues and/or touching/steadying and/or contact guard assistance as patient completes activity. Assistance may be provided throughout the activity or intermittently. 3-Partial/Moderate Assistance-helper does LESS THAN HALF the effort. [place] lifts, holds or supports trunk or limbs, but provides less than half the effort. 2-Substantial/Maximal Assistance-helper does MORE THAN HALF the effort. [place] lifts or holds trunk or limbs and provides more than half the effort. 4-Msrotfznv-aqdbws does ALL the effort. Patient does none of the effort to complete the activity. Or, the assistance of 2 or more helpers is required for the patient to complete the activity. If activity was not attempted, code reason: 7-Patient Refused. 9-Not Applicable-not attempted and the patient did not perform the activity before the current illness, exacerbation or injury. 10-Not Attempted due to Environmental Limitations-(lack of equipment, weather restraints, etc.). 88-Not Attempted due to Medical Conditions or Safety Concerns. Sit to Stand (QC): 4 sit to stand from toilet and chairs as well as practicing approaching a chair with the FWW Weight Bearing Right Lower Extremity: Right Full Weight Bearing Left Lower Extremity: Left Full Weight Bearing Gait Training Does the Patient Walk?: Yes Walk 10 feet (QC): 4 Walk 50 ft with 2 Turns(QC): 4 Gait Persons Needed: 1 Gait Assistive Device: Walker Platform gait has improved with FWW and platform, pt. may be able to use QC, will attempt later perhaps after pt is not so uncomfortable from constipation. Pt. needs cues to equalize step length and bring right foot up in walker in safe fashion as it sometimes hits the walker legs Exercises Seated Therapy Exercises: Ankle pumps, Sit to stand, Long arc quads, Hip flexio n, Hip abd/add Seated Reps: 15 Assessment Current Status: Good Progress plagued today by discomfort in abdomen as she is constipated, pt. drank approx 4 oz warmed prune juice and 16 oz ice water as well as 4 oz miralax solution during Rx PT Short Term Goals Short Term Goals Time Frame: May 19, 2020 Roll Left & Right: 4 Sit to lyin (met) Lying to sitting on side of be: 3 Chair/que-cp-ppmqj transfer: 3 (met) Walk 10 feet: 3 (met) Does pt use a wc or scooter: Yes Wheel 50ft w/2 turns: 3 Wheel 150 feet: 3 PT Halfway Goals Halfway Goals PT Halfway Goals Time Frame: Jun 02, 2020 Roll Left & Right (QC): 6 Sit to Lying (QC): 6 Lying-Sitting on Side/Bed(QC): 6 Sit to Stand (QC): 4 Chair/Zel-bh-Myrgx Xfer(QC): 4 Toilet Transfer (QC): 4 Car Transfer (QC): 4 Does the Patient Walk: Yes Walk 10 feet (QC): 3 (met) Walk 50ft with 2 Turns (QC): 3 (met) Walk 150 ft (QC): 88 Walking 10ft on Uneven Surface: 3 1 Step (curb) (QC): 3 4 Steps (QC): 88 12 Steps (QC): 88 Picking up an Object (QC): 88 Does the Pt use WC or Scooter?: Yes Wheel 50 feet with 2 turns (QC: 6 Wheel 150 feet: 6 PT Plan Treatment/Plan Treatment Plan: Continue Plan of Care Treatment Plan: Bed Mobility, Education, Functional Activity Robbin, Functional Strength, Group Therapy, Gait, Safety, Therapeutic Exercise, Transfers Treatment Duration: May 13, 2020 Frequency: At least 5 of 7 days/Wk (IRF) Estimated Hrs Per Day: 1.5 hours per day Patient and/or Family Agrees t: Yes Safety Risks/Education Patient Education: Gait Training, Transfer Techniques, Correct Positioning, Disease Process, Safety Issues Teaching Recipient: Patient Teaching Methods: Demonstration, Discussion Response to Teaching: Verbalize Understanding, Return Demonstration, Reinforcement Needed Time/GCodes Time In: 800 Time Out: 900 Total Billed Treatment Time: 60 Total Billed Treatment 1,GT30m,EX10m,FA20m JANA OROSCO GLOBAL CLIMATE CHANGE ANALYST Jun 01, 2020 08:57
[2020-06-01] MEDS: RT-BUDESONIDE NEBS 0.5 MG/2ML (PULMICORT) AMP IH SCH ×2 (09:31→19:26)
[2020-06-01] MEDS: RT-ALBUTEROL/IPRATROPIUM 3 ML (DUONEB) VIAL IH SCH ×2 (09:31→19:22)
--- NOTE | 2020-06-01 10:14 | Occupational Ther Daily Note ---
OT Current Status-Daily Note Subjective Pt. is very upset this date. Nursing indicates that she is having difficulty having BM, and is very constipated. Nursing gives pt. suppository, and pt. attempts to toilet on BSC. Mental Status/Objective Patient Orientation: Person ADL-Treatment Therapy Code Descriptions/Definitions Functional [place] Measure: 0=Not Assessed/NA 4=Minimal Assistance 1=Total Assistance 5=Supervision or Setup 2=Maximal Assistance 6=Modified [place] 3=Moderate Assistance 7=Complete IndependenceSCALE: Activities may be completed with or without assistive devices. 7-Gysrvwwobo-wnqkyhd completes the activity by him/herself with no assistance from a helper. 5-Set-up or Clean-up Assistance-helper sets up or cleans up; patient completes activity. [place] assists only prior to or following the activity. 4-Supervision or Touching Assistance-helper provides verbal cues and/or touching/steadying and/or contact guard assistance as patient completes activity. Assistance may be provided throughout the activity or intermittently. 3-Partial/Moderate Assistance-helper does LESS THAN HALF the effort. [place] lifts, holds or supports trunk or limbs, but provides less than half the effort. 2-Substantial/Maximal Assistance-helper does MORE THAN HALF the effort. [place] lifts or holds trunk or limbs and provides more than half the effort. 2-Fehrzstug-gmqdat does ALL the effort. Patient does none of the effort to complete the activity. Or, the assistance of 2 or more helpers is required for the patient to complete the activity. If activity was not attempted, code reason: 7-Patient Refused. 9-Not Applicable-not attempted and the patient did not perform the activity before the current illness, exacerbation or injury. 10-Not Attempted due to Environmental Limitations-(lack of equipment, weather restraints, etc.). 88-Not Attempted due to Medical Conditions or Safety Concerns. Oral Hygiene (QC): 7 (Pt. declines brushing her teeth this date.) Shower/Bathe Self (QC): 3 (Mod assist for sponge bath while seated on BSC.) Upper Body Dressing (QC): 2 Lower Body Dressing (QC): 2 On/Off Footwear: 1 Toileting Hygiene (QC): 1 Toilet Transfer (QC): 4 (CGA) Other Treatment Pt. is upset when OT enters room this date. Nursing states that pt. is constipated and that they have been giving her stuff to make her go to the bathroom. Pt. agrees to use BSC and to clean up/dress from this surface so that she can attempt toileting. Nursing gives pt. suppository and pt. does attempt to have BM. Pt. has very small success, and seems upset. She is able to indicate her discomfort, but not able to state where they pain is, regarding her stomach or lopez area. Pt. requires mod assist to cleanse self and max assist to doff shirt, and don shirt, brief, and pants. Dependent assistance needed to don slipper socks. Pt. is encouraged to attempt ambulation to help. Pt. stands at walker with platform with min assist for arm support, and ambulates approximately 30 feet with slow movement and verbal/tactile cues to keep walker in front of her. Another person has to get wheelchair for her, and pt. is taken to gym. Attempt to engage pt. in right sided awareness task and crossing midl ine. Max cues given and pt. is able to reach with left hand to her right side, but then is unable to follow cue of opening small clothespin with left hand. Pt. is distracted and upset that she still needs to go to bathroom. Declines using toilet when getting back to room. Pt. transfers to reclining chair with CGA. All needs met and chair alarm set. Education OT Patient Education: Correct positioning, Exercise program, Modified ADL techniques, Progress toward Goal/Update tx plan, Purpose of tx/functional activities, Reviewed precautions, Rehab process, Transfer techniques Teaching Recipient: Patient Teaching Methods: Demonstration, Discussion Response to Teaching: Reinforcement Needed OT Short Term Goals Short Term Goals Time Frame: May 26, 2020 Eatin Oral hygiene: 3 Toileting hygiene: 3 Shower/bathe self: 3 Upper body dressin Lower body dressin Putting on/taking off footwear: 3 OT [facility]ci Goals Landing Support Specialist Goals Time Frame: Jun 09, 2020 Eating (QC): 4 Oral Hygiene (QC): 4 Toileting Hygiene (QC): 3 Shower/Bathe Self (QC): 3 Upper Body Dressing (QC): 5 Lower Body Dressing (QC): 4 On/Off Footwear (QC): 4 Additional Goals: 1-Demonstrate ADL Tasks, 2-Verbalize Understanding, 3- ImproveStrength/Robbin 1=Demonstrate adherence to instructed precautions during ADL tasks. 2=Patient will verbalize/demonstrate understanding of assistive devices/modifications for ADL. 3=Patient will improve strength/tolerance for activity to enable patient to perform ADL's. OT Education/Plan Problem List/Assessment Assessment: Decreased Activ Tolerance, Decreased Safety Aware, Decreased UE Strength, Dependent Transfers, Impaired Bed Mobility, Impaired Cognition, Impaired Coordination, Impaired Funct Balance, Impaired I ADL's, Impaired Self- Care Skills, Restricted Funct UE ROM, Visual-Perceptual Deficit Visual perceptual issues difficult to pinpoint due to severe global aphasia. Discharge Recommendations Plan/Recommendations: Continue POC Therapy Discharge Recommendati: 24 Hour Supervision, Scheduled Assistance, Home & Family, Post Acute OT Treatment Plan/Plan of Care Treatment,Training & Education: Yes Patient would benefit from OT for education, treatment and training to promote independence in ADL's, mobility, safety and/or upper extremity function for ADL's. Plan of Care: ADL Retraining, Caregiver Training, Cognitive Retraining, Functional Mobility, Group Exercise/Act as Ind, UE Funct Exercise/Act, UE Neuromus Re-Ed/Coord, Visual/Perceptual Retrain, W/C Management Training Treatment Duration: Jun 09, 2020 Frequency: At least 5 of 7 days/Wk (IRF) Estimated Hrs Per Day: 1.5 hours per day Agreement: Yes Rehab Potential: Fair Time/GCodes Start Time: 09:00 Stop Time: 10:15 Total Time Billed (hr/min): 75 Billed Treatment Time 1, ADL x 45minutes, FA x 30minutes RALPH LUO OT Jun 01, 2020 10:14
--- NOTE | 2020-06-01 12:20 | Progress Note - Cardiology ---
Cardiology SOAP Progress Note Subjective: Sitting up in recliner at the bedside. States she feels "good". Objective: I&O/Vital Signs 06/02/20 06/02/20 06:00 09:00 Temp 36.2 Pulse 77 Resp 18 B/P (MAP) 139/65 (89) Pulse Ox 96 O2 Delivery Room Air Room Air 06/02/20 00:00 Intake Total 1200 ml Balance 1200 ml Constitutional: AAO x 3, well-developed, well-nourished, other (mild expressive aphasia) Respiratory: No accessory muscle use, No respiratory distress; chest expansion is symmetric, chest is bilaterally symmetric, lungs clear to auscultation Cardiovascular: regular rate-rhythm; No JVD; S1 and S2 Gastrointestional: No tender; soft, round, audible bowel sounds Extremities: no lower extremity edema bilateral Neurologic/Psychiatric: other (RUE and RLE weakness) A/P: Assessment: 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 Coronary artery disease status post CABG 3 Hypertension Hyperlipidemia Questionable peripheral arterial disease with ischemic event after her bypass has improved after conservative management, continue on Plavix Diabetes mellitus, followed and managed by primary care physician Debility, receiving physical therapy Plan: Continue current cardiac regimen Monitor lab LISA DUMAS Jun 01, 2020 12:20
--- NOTE | 2020-06-01 14:25 | Speech Therapy Daily Note ---
Speech Daily Progress Note Subjective Date Seen by Provider: Jun 01, 2020 Time Seen by Provider: 04:50 Patient was resting in her bed following lunch. She was able to participate with therapy. Objective Patient completed simple confrontational naming task presented with pictures of common everyday objects at 50% with 25% verbal and/or visual cues. Assessment Assessment Current Status: Fair Progress Treatment Plan Continue Plan of Care Speech Short Term Goals Short Term Goals Short Term Goals 1) The patient will complete cognitive tasks related to memory, safety awareness and problem solving at 80% with minimal cues. 2) The patient will complete speech tasks to improve intelligibility at 80% with minimal cues. 3) The patient will complete confrontational naming tasks at 90% with minimal cues. 4) The patient will complete OME for improved oral status for safe oral intake at 80% or greater with minimal cues. Speech Economic Adviser Goals Economic Adviser Goals Patient will improve communication abilities and safe oral intake in order to return to prior level. Speech-Plan Patient/Family Goals Patient/Family Goals: Patient is scheduled to discharge to live with her daughter on 06/03/2020. Treatment Plan Speech Therapy Treatment Plan: Continue Plan of Care Treatment Duration: May 25, 2020 Frequency: 4 times per week (Patient will receive ST 4-5x per week) Estimated Hrs Per Day: .5 hour per day Rehab Potential: Fair Barriers to Learning: Patient's expressive aphasia, age Pt/Family Agrees to Plan: Yes Safety Risks/Education Teaching Recipient: Patient Teaching Methods: Demonstration, Discussion Response to Teaching: Verbalize Understanding, Return Demonstration Education Topics Provided: Safety within her room and utilization of the call light as needed Safety with oral intake upon her return home Time Speech Therapy Time In: 13:45 Speech Therapy Time Out: 14:30 Total Billed Time: 45 Billed Treatment Time 1, SLTS, DYST SHERYL Mckenzie Jun 01, 2020 14:25
--- NOTE | 2020-06-01 15:13 | Progress Note - Cardiology ---
Cardiology SOAP Progress Note Subjective: No cp or palp or syncope No shortness of breath at rest Gen malaise No n/v/d Objective: I&O/Vital Signs 06/01/20 06/01/20 05:17 09:00 Temp 36.1 Pulse 82 Resp 18 B/P (MAP) 149/67 (94) Pulse Ox 96 O2 Delivery Room Air Room Air 06/01/20 00:00 Intake Total 720 ml Balance 720 ml Constitutional: AAO x 3, well-developed, well-nourished, other (mild expressive aphasia) Respiratory: No accessory muscle use, No respiratory distress; chest expansion is symmetric, chest is bilaterally symmetric, lungs clear to auscultation Cardiovascular: regular rate-rhythm; No JVD; S1 and S2 Gastrointestional: No tender; soft, round, audible bowel sounds Extremities: no lower extremity edema bilateral Neurologic/Psychiatric: other (RUE and RLE weakness) A/P: Assessment: 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 Coronary artery disease status post CABG 3 Hypertension Hyperlipidemia Questionable peripheral arterial disease with ischemic event after her bypass has improved after conservative management, continue on Plavix Diabetes mellitus, followed and managed by primary care physician Debility, receiving physical therapy Plan: Continue current cardiac regimen Monitor lab ABEL LAUREN MD FACP FACC CCDS Jun 01, 2020 15:13
--- NOTE | 2020-06-01 15:59 | NUR ---
visited and prayed w/ pt. She seemed cheerful and optimistic about leaving.
--- NOTE | 2020-06-01 16:07 | NUR ---
CM/SS PATIENT CARE CONFERENCE and DISCHARGE PLANNING Reviewed Summary with daughter/POA Rula Junior while patient was sleeping. Both are in agreement to the targeted discharge of June 03, between 10-1100. HHC: [facility] is ready to provide services, RN PT OT . DME: [facility] has wheelchair and Right Platform FWW for patient, will be delivered to her hospital room Saturday prior to discharge. Rula reports the family has all other recommended equipment in place. Finalize Saturday.
[2020-06-01 17:25] VITALS: BP 159/70
[2020-06-01] MEDS: MELATONIN 3 MG TABLET PO PRN (19:54)
[2020-06-01] MEDS: ALPRAZolam 0.25 MG (XANAX) TAB PO PRN (19:54)
[2020-06-02 06:00] VITALS: BP 139/65
[2020-06-02] MEDS: FAMOTIDINE 20 MG (PEPCID) TABLET PO SCH (07:59)
[2020-06-02] MEDS: CARVEDILOL 3.125 MG (COREG) TABLET PO SCH ×2 (07:59→20:26)
[2020-06-02] MEDS: CLOPIDOGREL 75 MG (PLAVIX) TABLET PO SCH (07:59)
[2020-06-02] MEDS: amLODIPine 5 MG (NORVASC) TAB PO SCH (07:59)
[2020-06-02] MEDS: DOCUSATE SODIUM 100 MG (COLACE) CAP PO SCH ×2 (07:59→20:26)
[2020-06-02] MEDS: SENNA W/DOCUSATE (SENOKOT S) TABLET PO SCH ×2 (07:59→20:26)
[2020-06-02] MEDS: ASPIRIN 81 MG CHEW (CHILDREN'S ASA) PO SCH (07:59)
[2020-06-02] MEDS: MICONAZOLE NITRATE 2% CRM 30 GM TP SCH ×2 (08:00→20:28)
[2020-06-02] MEDS: polyethylene glycoL POWDER 17 GM (MIRALAX) PACK PO SCH ×2 (08:00→20:26)
--- NOTE | 2020-06-02 09:02 | Physical Therapy Daily Note ---
PT Daily Note-Current Subjective Pt sitting in recliner upon arrival. Pt agrees to PT. Pt is excited about DC tomorrow (06/03). Pain Location: No Pain Reported Mental Status Patient Orientation: Person, Place Transfers SCALE: Activities may be completed with or without assistive devices. 9-Jlxqrqkxzd-zgvuuxn completes the activity by him/herself with no assistance from a helper. 5-Set-up or Clean-up Assistance-helper sets up or cleans up; patient completes activity. [place] assists only prior to or following the activity. 4-Supervision or Touching Assistance-helper provides verbal cues and/or touching/steadying and/or contact guard assistance as patient completes activity. Assistance may be provided throughout the activity or intermittently. 3-Partial/Moderate Assistance-helper does LESS THAN HALF the effort. [place] lifts, holds or supports trunk or limbs, but provides less than half the effort. 2-Substantial/Maximal Assistance-helper does MORE THAN HALF the effort. [place] lifts or holds trunk or limbs and provides more than half the effort. 5-Lktznbxhi-sqceyb does ALL the effort. Patient does none of the effort to complete the activity. Or, the assistance of 2 or more helpers is required for the patient to complete the activity. If activity was not attempted, code reason: 7-Patient Refused. 9-Not Applicable-not attempted and the patient did not perform the activity before the current illness, exacerbation or injury. 10-Not Attempted due to Environmental Limitations-(lack of equipment, weather restraints, etc.). 88-Not Attempted due to Medical Conditions or Safety Concerns. Roll Left & Right (QC): 5 Sit to Lying (QC): 6 Lying to Sitting/Side of Bed(Q: 5 Sit to Stand (QC): 5 Chair/Hgv-lh-Xanrz Xfer(QC): 5 Toilet Transfer (QC): 5 Car Transfer (QC): 6 Pt uses bed rails especially with turning and sitting up in bed. Weight Bearing Right Lower Extremity: Right Full Weight Bearing Left Lower Extremity: Left Full Weight Bearing Gait Training Does the Patient Walk?: Yes Distance: 150' x2 Walk 10 feet (QC): 5 Walk 50 ft with 2 Turns(QC): 4 Walk 150 ft (QC): 4 Walking 10ft/uneven surface-QC: 4 Gait Persons Needed: 1 Gait Assistive Device: Walker Platform Pt needs VC to walk w/in walker and positioning hand on platform. Wheelchair Training Does the Pt Use a Wheelchair?: Yes Wheel 50 ft with 2 turns (QC): 5 Wheel 150 ft (QC): 5 Type of Wheelchair: Manual Stair Training Stair Training: Handrails/: 2 handrails #of Steps: 4 1 Step (curb) (QC): 4 4 Steps (QC): 4 12 Steps (QC): 88 Stairs: Pattern: Step to Balance Picking up an Object (QC): 5 Special Test Comments Sitting and using supervisor residential. Treatments Pt completes QC scoring items listed above between both morning and afternoon session. Pt ambulates in morning session but uses WCH for mobility as fatigued by afternoon session. WCH will be more functional at home as pt requires increased VC to stay w/in walker. Assessment Current Status: Good Progress Pt has improved on activity tolerance and strength. Pt still impulsive though and needs cues for safety. PT Short Term Goals Short Term Goals Time Frame: May 19, 2020 Roll Left & Right: 4 Sit to lyin (met) Lying to sitting on side of be: 3 Chair/dhx-kc-zpyai transfer: 3 (met) Walk 10 feet: 3 (met) Does pt use a wc or scooter: Yes Wheel 50ft w/2 turns: 3 Wheel 150 feet: 3 PT Primer Press Operator Goals Group Home Goals PT Group Home Goals Time Frame: Jun 02, 2020 Roll Left & Right (QC): 6 Sit to Lying (QC): 6 Lying-Sitting on Side/Bed(QC): 6 Sit to Stand (QC): 4 Chair/Yzq-li-Hfbna Xfer(QC): 4 Toilet Transfer (QC): 4 Car Transfer (QC): 4 Does the Patient Walk: Yes Walk 10 feet (QC): 3 (met) Walk 50ft with 2 Turns (QC): 3 (met) Walk 150 ft (QC): 88 Walking 10ft on Uneven Surface: 3 1 Step (curb) (QC): 3 4 Steps (QC): 88 12 Steps (QC): 88 Picking up an Object (QC): 88 Does the Pt use WC or Scooter?: Yes Wheel 50 feet with 2 turns (QC: 6 Wheel 150 feet: 6 PT Plan Problem List Problem List: Activity Tolerance, Safety, Balance Treatment/Plan Treatment Plan: Continue Plan of Care Treatment Plan: Bed Mobility, Education, Functional Activity Robbin, Functional Strength, Group Therapy, Gait, Safety, Therapeutic Exercise, Transfers Treatment Duration: May 13, 2020 Frequency: At least 5 of 7 days/Wk (IRF) Estimated Hrs Per Day: 1.5 hours per day Patient and/or Family Agrees t: Yes Safety Risks/Education Patient Education: Gait Training, Transfer Techniques, Steps, Correct Positioning, W/C Management, Safety Issues Teaching Recipient: Patient Teaching Methods: Discussion Response to Teaching: Verbalize Understanding, Reinforcement Needed Time/GCodes Time In: 800 Time Out: 900 Total Billed Treatment Time: 60 Total Billed Treatment Morning Session: 1, GT (20m), FA (15m) & EX x2 (25m) Afternoon Session: ([id number]) 1, FA (15m) JONATHAN KESSLER PTA Jun 02, 2020 09:02
--- NOTE | 2020-06-02 10:08 | Progress Note - Urology ---
Progress Note-Urology Progress Notes/Assess & Plan Progress/Assessment & Plan DOING WELL OFF ALL EDS. WE WILL SEE PRN Final Diagnosis RETENTION (RESOLVED) TANIA MENDEZ MD Jun 02, 2020 10:08
[2020-06-02] MEDS: RT-BUDESONIDE NEBS 0.5 MG/2ML (PULMICORT) AMP IH SCH ×2 (10:10→19:35)
[2020-06-02] MEDS: RT-ALBUTEROL/IPRATROPIUM 3 ML (DUONEB) VIAL IH SCH ×2 (10:10→19:33)
--- NOTE | 2020-06-02 11:30 | Speech Therapy Daily Note ---
Speech Daily Progress Note Subjective Date Seen by Provider: Jun 02, 2020 Time Seen by Provider: 00:30 Patient was resting in her recliner following her other therapies. She is very excited to be returning to her daughter's home tomorrow. Objective Patient completed a series of naming common household items with 50% given 25% verbal cues. Patient continues to utilize compensatory strategies as trained. Assessment Assessment Current Status: Good Progress Treatment Plan Discontinue ST, Goals Met Speech Short Term Goals Short Term Goals Short Term Goals 1) The patient will complete cognitive tasks related to memory, safety awareness and problem solving at 80% with minimal cues. 2) The patient will complete speech tasks to improve intelligibility at 80% with minimal cues. 3) The patient will complete confrontational naming tasks at 90% with minimal cues. 4) The patient will complete OME for improved oral status for safe oral intake at 80% or greater with minimal cues. Speech Retirement Goals [place] Overseer Goals Patient will improve communication abilities and safe oral intake in order to return to prior level. Speech-Plan Patient/Family Goals Patient/Family Goals: Patient is scheduled to return home to live with her daughter tomorrow. Treatment Plan Speech Therapy Treatment Plan: Discontinue ST, Goals Met Treatment Duration: May 25, 2020 Frequency: 4 times per week (Patient will receive ST 4-5x per week) Estimated Hrs Per Day: .5 hour per day Rehab Potential: Fair Barriers to Learning: Patient's expressive aphasia, age Pt/Family Agrees to Plan: Yes Safety Risks/Education Teaching Recipient: Patient Teaching Methods: Demonstration, Discussion Response to Teaching: Verbalize Understanding, Return Demonstration Education Topics Provided: Continued safety with oral intake upon her return home, diet level Time Speech Therapy Time In: 10:30 Speech Therapy Time Out: 11:00 Total Billed Time: 30 Billed Treatment Time 1, DYST, SLTS No QUALITY CODES EXPRESSION OF IDEAS/WANTS:4 UNDERSTANDING VERBAL CONTENT: 4 BRIEF INTERVIEW MENTAL STATUS: YES REPETITION OF 3 WORDS: 3 TEMPORAL ORIENTATION: YEAR: CORRECT, MONTH: CORRECT, DAY: CORRECT RECALL SOCK: YES WITH CUE, COLOR: YES WITH CUE, BED: YES MEMORY/RECALL ABILITY: SEASON, LOCATION OF HER ROOM, THAT SHE IS IN THE HOSPITAL SHERYL TAYLOR Jun 02, 2020 11:30
--- NOTE | 2020-06-02 11:33 | Progress Note - Cardiology ---
Cardiology SOAP Progress Note Subjective: Sitting up in recliner at the bedside States she feels "good" No c/o CP, palpitations or dyspnea Objective: I&O/Vital Signs 06/02/20 06/03/20 20:40 06:32 Temp 36.5 Pulse 68 Resp 20 B/P (MAP) 156/70 (98) Pulse Ox 93 O2 Delivery Room Air Room Air 06/03/20 00:00 Intake Total 650 ml Balance 650 ml Constitutional: AAO x 3, well-developed, well-nourished, other (mild expressive aphasia) Respiratory: No accessory muscle use, No respiratory distress; chest expansion is symmetric, chest is bilaterally symmetric, lungs clear to auscultation Cardiovascular: regular rate-rhythm; No JVD; S1 and S2 Gastrointestional: No tender; soft, round, audible bowel sounds Extremities: no lower extremity edema bilateral Neurologic/Psychiatric: other (RUE and RLE weakness) A/P: Assessment: 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 Coronary artery disease status post CABG 3 Hypertension Hyperlipidemia Questionable peripheral arterial disease with ischemic event after her bypass has improved after conservative management, continue on Plavix Diabetes mellitus, followed and managed by primary care physician Debility, receiving physical therapy Plan: Continue current cardiac regimen Monitor lab LISA DUMAS Jun 02, 2020 11:33
--- NOTE | 2020-06-02 12:51 | PM&R Progress Note ---
Subjective HPI/CC On Admission Date Seen by Provider: Jun 02, 2020 Time Seen by Provider: 05:10 Subjective/Events-last exam 06/02/20: Patient sleeping at current time of seen Discharge is planned for tomorrow We will establish her care with me The patient has a mobility limitation that significantly impairs his/her ability to do one or more mobility-related activities of daily living in the home. The patient's mobility imitation can not be helped solely with a cane or walker. The patient has enough room inside their residence for a wheelchair. The patient can safely use a wheelchair on their own or with the help of a caregiver. 06/01/20: Very constipated will give all laxatives today and a soap suds enema if needed Overall feels pretty good about DC plan for Saturday05/31/20: Pt dramatically better Walking very well Doing very well Voiding well BP was a little bit elevated earlier but now its normal 05/30/20: Labs are okay Bowels moved yesterday Urinating well, no urinary retention Discharge planned later this week 05/29/20: Decreasing Urecholine per Dr Houston now No pain reported No falls No incontinence 05/28/20: Not voiding very often Doesn't drink much during day No pain reported 05/27/20: Improved status Feeding herself now Dramatic improvement since admit No incontinence now DC accucheck BID 05/26/20: Voiding well now No catheter now Made her way to the commode on her own without help last night and urinated in her clothes on top of the commode No incontinence usually 05/25/20: Pt doing pretty well James is out, will evaluate whether she can void or not on her own Urocholine is at 50mg AC and HS Bowels are really moving well 05/24/20: Pt doing pretty well Re-inserted james due to retention Yeast infection will be managed with Diflucan and Monistat cream 05/23/20: Pt still doing pretty well Participation in therapy varies Cognition is an issue Overall doing well enough to remain stable 05/22/20: James cath still in place Urecholine 50mg dose now BM today 05/21/20: Likely will need catheter replaced No pain reported Feeder maintained adequate consumption 05/20/20: Patient about the same Requires a feeder to eat No pain reported Confusion is a limitation 05/19/20: Pt has varying participation with PT and OT Accu cheks changed to BID Will monitor pt closely Denies any pain Is a feeder 05/18/20: Re inserted the james since urinary retention continued Increasing oral fluids Urecholine was increased dose barron Bowels are moving 05/17/20: Xanax given last night Bowels moved yesterday Refusing to eat supper or breakfast today Agitated a bit today Post-void residual had 238 Hadnt voided since discontinued the cath yesterday 05/16/20: Dr. Houston will discontinue the catheter and evaluate voiding trial today Flomax and Urecholine maintained Bowels are moving Very difficult to recover from catastrophic stroke 05/15/20: Patient participating with therapy No pain reported Dr Houston consulted for james catheter 05/14/20: Patient denies pain Working well with structured therapies James cath still in place will need to DC soon Working on BM regimen Patient doing well Settling in well No pain reported Working with PT OT and ST Eating a bit more without aspiration No falls Checked meds and labs Conferred with RN Reviewed therapy notes Review of Systems General: Fatigue Neurological: Weakness, Incoordination, Change in speech Objective Exam Vital Signs Vital Signs Date Time Temp Pulse Resp B/P (MAP) Pulse Ox O2 Delivery O2 Flow Rate FiO2 06/02/20 09:00 Room Air 06/02/20 06:00 36.2 77 18 139/65 (89) 96 Capillary Refill : Less Than 3 Seconds General Appearance: No Apparent Distress, Anxious, Chronically ill, Thin HEENT: PERRL/EOMI, Normal ENT Inspection, Pharynx Normal Neck: Full Range of Motion, Normal Inspection, Non Tender, Supple, Carotid Bruit Respiratory: Chest Non Tender, Lungs Clear, No Accessory Muscle Use, No Respiratory Distress, Decreased Breath Sounds Cardiovascular: Regular Rate, Rhythm, No Edema, No Gallop, No JVD, No Murmur, Normal Peripheral Pulses Gastrointestinal: Normal Bowel Sounds, No Organomegaly, No Pulsatile Mass, Non Tender, Soft Back: Normal Inspection, No CVA Tenderness, No Vertebral Tenderness Extremity: Normal Capillary Refill, Normal Inspection, Normal Range of Motion (except right sided weakness), Non Tender, No Calf Tenderness, No Pedal Edema Neurologic/Psychiatric: Alert, No Motor/Sensory Deficits, Normal Mood/Affect, Abnormal outboard motor tester II-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 FIM Transfers Therapy Code Descriptions/Definitions Functional [place] Measure: 0=Not Assessed/NA 4=Minimal Assistance 1=Total Assistance 5=Supervision or Setup 2=Maximal Assistance 6=Modified [place] 3=Moderate Assistance 7=Complete IndependenceSCALE: Activities may be completed with or without assistive devices. 6-Azspdixdea-vhybjfi completes the activity by him/herself with no assistance from a helper. 5-Set-up or Clean-up Assistance-helper sets up or cleans up; patient completes activity. [place] assists only prior to or following the activity. 4-Supervision or Touching Assistance-helper provides verbal cues and/or touching/steadying and/or contact guard assistance as patient completes activity. Assistance may be provided throughout the activity or intermittently. 3-Partial/Moderate Assistance-helper does LESS THAN HALF the effort. [place] lifts, holds or supports trunk or limbs, but provides less than half the effort. 2-Substantial/Maximal Assistance-helper does MORE THAN HALF the effort. [place] lifts or holds trunk or limbs and provides more than half the effort. 7-Cpgmygadn-lziatw does ALL the effort. Patient does none of the effort to complete the activity. Or, the assistance of 2 or more helpers is required for the patient to complete the activity. If activity was not attempted, code reason: 7-Patient Refused. 9-Not Applicable-not attempted and the patient did not perform the activity before the current illness, exacerbation or injury. 10-Not Attempted due to Environmental Limitations-(lack of equipment, weather restraints, etc.). 88-Not Attempted due to Medical Conditions or Safety Concerns. Roll Left to Right (QC): 6 Sit to Lying (QC): 6 Sit to Stand (QC): 5 Chair/Rrr-ga-Pgnhg Xfer(QC): 5 Car Transfer (QC): 3 (min assist to manage the walker with heavy cues for sequencing and safety. Pt able to lift right leg in car but with cues to initiate. ) Gait Training Does the Patient Walk?: Yes Distance: 150' x2 Walk 10 feet (QC): 5 Walk 50 ft with 2 Turns(QC): 5 Walk 150 ft (QC): 5 Walking 10ft/uneven surface-QC: 88 Gait Persons Needed: 1 Gait Assistive Device: Walker Platform Wheelchair Training Does the Pt Use a Wheelchair?: Yes Distance: 150'x3 Wheel 50 ft with 2 turns (QC): 3 Wheel 150 ft (QC): 5 Type of Wheelchair: Manual Stair Training Stair Training: Handrails/: uses walker 1 Step (curb) (QC): 3 (min assist for balance; 100% cues for sequencing and safety. performed x 2 reps. used the short pink step in gym) 4 Steps (QC): 88 12 Steps (QC): 88 Balance Picking up an Object (QC): 88 ADL-Treatment Eating (QC): 4 Oral Hygiene (QC): 7 (Pt. 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 Ensure adequate anticoagulation 2. PT, OT, and [employer] STUDIES PROFESSOR eval's and treat 3. Oxygen via NC- wean as tolerated 4. Resume Home medications 5. Fall precautions 6. Dietary consult 7. DVT prophylaxis 05/13/20: Patient participating well No pain reported Continue current meds Advance diet 05/14/20: James DC soon Continue home meds Therapies to continue protocol 05/15/20: Dr Houston appreciated Monitor BP Monitor labs 05/16/20: Bladder meds Appreciate Dr Houston PT OT ST 05/17/20: Voiding trial Monitor closely Variable moods 05/18/20: Monitor BP Encourage PO intake James cath management 05/19/20: Encourage participation with therapies Monitor james cath 05/20/20: Monitor closely Bladder management 05/21/20: Monitor closely Cath maintained? 05/22/20: Cath in place Check labs in am Increased dose of Urecholine 05/23/20: Monitor bladder function Increased dose of Urecholine 05/24/20: Maintain james catheter IRF protocol Family evaluating DC plans 05/25/20: DC next week James cath in place now Monitor for falls 05/26/20: Voiding well without cath now Monitor closely 05/27/20: DC accuchecks Dramatic improvement since admit 05/28/20: Monitor dysphagia PT OT Monitor voiding 05/29/20: Decrease Urecholine Monitor BP Fall risk 05/30/20: Monitor voiding Fall risk DC later this week 05/31/20: Monitor closely DC planning 06/01/20: Monitor constipation DC planned Saturday06/02/20: DC planned Patient sleeping at current time of seen Discharge is planned for tomorrow We will establish her care with me The patient has a mobility limitation that significantly impairs his/her ability to do one or more mobility-related activities of daily living in the home. The patient's mobility imitation can not be helped solely with a cane or walker. The patient has enough room inside their residence for a wheelchair. The patient can safely use a wheelchair on their own or with the help of a caregiver. (1) CVA (cerebral vascular accident) (2) Dysarthria (3) Dysphagia (4) PEG (percutaneous endoscopic gastrostomy) status (5) Expressive aphasia (6) Smoker (7) COPD (chronic obstructive pulmonary disease) (8) CAD (coronary artery disease) (9) Hx of CABG (10) James catheter in place (11) Retention of urine BECKI WAGNER DO Jun 02, 2020 12:51
--- NOTE | 2020-06-02 15:48 | Occupational Ther Daily Note ---
OT Current Status-Daily Note Subjective No pain reported. Mental Status/Objective Patient Orientation: Person ADL-Treatment Therapy Code Descriptions/Definitions Functional [place] Measure: 0=Not Assessed/NA 4=Minimal Assistance 1=Total Assistance 5=Supervision or Setup 2=Maximal Assistance 6=Modified [place] 3=Moderate Assistance 7=Complete IndependenceSCALE: Activities may be completed with or without assistive devices. 4-Ndjnfyjpco-sywnpzb completes the activity by him/herself with no assistance from a helper. 5-Set-up or Clean-up Assistance-helper sets up or cleans up; patient completes activity. [place] assists only prior to or following the activity. 4-Supervision or Touching Assistance-helper provides verbal cues and/or touching/steadying and/or contact guard assistance as patient completes activity. Assistance may be provided throughout the activity or intermittently. 3-Partial/Moderate Assistance-helper does LESS THAN HALF the effort. [place] lifts, holds or supports trunk or limbs, but provides less than half the effort. 2-Substantial/Maximal Assistance-helper does MORE THAN HALF the effort. [place] lifts or holds trunk or limbs and provides more than half the effort. 0-Yypnswaaz-efjmao does ALL the effort. Patient does none of the effort to complete the activity. Or, the assistance of 2 or more helpers is required for the patient to complete the activity. If activity was not attempted, code reason: 7-Patient Refused. 9-Not Applicable-not attempted and the patient did not perform the activity before the current illness, exacerbation or injury. 10-Not Attempted due to Environmental Limitations-(lack of equipment, weather restraints, etc.). 88-Not Attempted due to Medical Conditions or Safety Concerns. Eating (QC): 4 Oral Hygiene (QC): 4 (SBA and cues) Shower/Bathe Self (QC): 3 (Mod assist overall to shower and max cues.) Upper Body Dressing (QC): 2 (Max assist to doff/don shirt.) Lower Body Dressing (QC): 2 On/Off Footwear: 2 Toileting Hygiene (QC): 2 Toilet Transfer (QC): 4 Other Treatment Pt. agrees to shower. After ADL tasks, pt. transferred to wheelchair and attempted to self propel wheelchair to therapy gym. Required mod assist for this. Engaged pt. in series of tasks to increase ability to follow cues and sequence. Pt. engaged in card game, in which her and therapist would turn over a card, and pt. encouraged to state who's card was bigger. Pt. was able to do this, but was only approximately 50% correct with being able to state what number was on the card. Pt. was engaged in activity to look to right side and retrieve items from right side. Max cues needed, but once pt. did the task once, she was able to do it easier. Pt. taken back to room and transferred to chair with CGA. All needs met and chair alarm set. Education OT Patient Education: Correct positioning, Exercise program, Modified ADL techniques, Progress toward Goal/Update tx plan, Purpose of tx/functional activities, Reviewed precautions, Rehab process, Transfer techniques Teaching Recipient: Patient Teaching Methods: Demonstration, Discussion Response to Teaching: Reinforcement Needed OT Short Term Goals Short Term Goals Time Frame: May 26, 2020 Eatin Oral hygiene: 3 Toileting hygiene: 3 Shower/bathe self: 3 Upper body dressin Lower body dressin Putting on/taking off footwear: 3 OT Administrative Technician Goals Retirement Goals Time Frame: Jun 09, 2020 Eating (QC): 4 Oral Hygiene (QC): 4 Toileting Hygiene (QC): 3 Shower/Bathe Self (QC): 3 Upper Body Dressing (QC): 5 Lower Body Dressing (QC): 4 On/Off Footwear (QC): 4 Additional Goals: 1-Demonstrate ADL Tasks, 2-Verbalize Understanding, 3- ImproveStrength/Robbin 1=Demonstrate adherence to instructed precautions during ADL tasks. 2=Patient will verbalize/demonstrate understanding of assistive devices/modifications for ADL. 3=Patient will improve strength/tolerance for activity to enable patient to perform ADL's. OT Education/Plan Problem List/Assessment Assessment: Decreased Activ Tolerance, Decreased Safety Aware, Decreased UE Strength, Dependent Transfers, Impaired Bed Mobility, Impaired Cognition, Impaired Coordination, Impaired Funct Balance, Impaired I ADL's, Impaired Self- Care Skills, Restricted Funct UE ROM, Visual-Perceptual Deficit Visual perceptual issues difficult to pinpoint due to severe global aphasia. Discharge Recommendations Plan/Recommendations: Continue POC Therapy Discharge Recommendati: 24 Hour Supervision, Scheduled Assistance, Home & Family, Post Acute OT Treatment Plan/Plan of Care Treatment,Training & Education: Yes Patient would benefit from OT for education, treatment and training to promote independence in ADL's, mobility, safety and/or upper extremity function for ADL's. Plan of Care: ADL Retraining, Caregiver Training, Cognitive Retraining, Functional Mobility, Group Exercise/Act as Ind, UE Funct Exercise/Act, UE Neuromus Re-Ed/Coord, Visual/Perceptual Retrain, W/C Management Training Treatment Duration: Jun 09, 2020 Frequency: At least 5 of 7 days/Wk (IRF) Estimated Hrs Per Day: 1.5 hours per day Agreement: Yes Rehab Potential: Fair Time/GCodes Start Time: 09:00 Stop Time: 10:15 Total Time Billed (hr/min): 75 Billed Treatment Time 1, ADL x 45minutes, FA x 30minutes RALPH LUO OT Jun 02, 2020 15:48
[2020-06-02] MEDS ORDERED: ATOR40TA PO (16:51)
[2020-06-02] MEDS ORDERED: FAMO20TA5 PO (16:51)
[2020-06-02] MEDS ORDERED: CARV3.122 PO (16:51)
[2020-06-02] MEDS ORDERED: AMLO-250 PO (16:51)
[2020-06-02] MEDS ORDERED: IPRA3AMP31 IH (16:51)
[2020-06-02] MEDS ORDERED: CLOP75TA28 PO (16:51)
[2020-06-02] MEDS ORDERED: SENN-20 PO (16:51)
[2020-06-02] MEDS ORDERED: BUDE0.5A IH (16:51)
[2020-06-02] MEDS ORDERED: ASPI-999 PO (16:51)
--- NOTE | 2020-06-02 17:02 | D/C HH Face to Face Order ---
D/C Face to Face Orders Reconcile Patient Problems Problems Reviewed?: Yes Instructions for Patient Via [facility], Patient Instructions/FollowUp: Dr Velazquez in 2 weeks Physician to follow Patient: Caroline Discharge Diet for Home: No Restrictions Patient Problems: CVA Patient Data-Allergies,Ht & Wt Patient Allergies: Coded Allergies: No Known Drug Allergies (Unverified , 05/12/20) Home Health Need/Face to Face Date of Face to Face: Jun 02, 2020 Clinical Findings: Generalized weakness and fatigue, Instability, Muscle weakness, Unsteady gait I have seen Pt hqrz-yn-[id number]: Yes Discharged To: Home Diagnosis/Conditions: CVA Patient is Homebound due to: CognItive deficits, Hilda fall risk due to instabilty, Muscle weakness Homebound Status Due to the above stated illness, injury or surgical procedure (medical condition or diagnosis) and associated clinical findings, the patient is homebound because of his/her inability to leave home except with aid of a supportive device and/or person AND leaving the home requires a considerable and taxing effort or is medically contraindicated. Pt req the following assistanc: Walker, Wheelchair Home Health Nursing Orders Home Health Services Order: Nursing Services, Dirt Bike Racer-Evaluate & Treat, Physical Therapy-Evaluate & Treat Certify Stmt I certify that this patient is under my care and that I, a nurse practitioner or a physician; a store assistant working with me, had a face to face encounter that - meets the physician face to face encounter requirements with this patient as dated. BECKI VELAZQUEZ DO Jun 02, 2020 17:00
[2020-06-02 17:11] VITALS: BP 145/66
--- NOTE | 2020-06-02 19:32 | Progress Note - Cardiology ---
Cardiology SOAP Progress Note Subjective: Gen malaise and weakness No shortness of breath No cp or palp or syncope No n/v/d Objective: I&O/Vital Signs 06/02/20 06/02/20 09:00 17:11 Temp 36.4 Pulse 77 Resp 18 B/P (MAP) 145/66 (92) Pulse Ox 95 O2 Delivery Room Air Room Air 06/02/20 00:00 Intake Total 1200 ml Balance 1200 ml Constitutional: AAO x 3, well-developed, well-nourished, other (mild expressive aphasia) Respiratory: No accessory muscle use, No respiratory distress; chest expansion is symmetric, chest is bilaterally symmetric, lungs clear to auscultation Cardiovascular: regular rate-rhythm; No JVD; S1 and S2 Gastrointestional: No tender; soft, round, audible bowel sounds Extremities: no lower extremity edema bilateral Neurologic/Psychiatric: other (RUE and RLE weakness) A/P: Assessment: 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 Coronary artery disease status post CABG 3 Hypertension Hyperlipidemia Questionable peripheral arterial disease with ischemic event after her bypass has improved after conservative management, continue on Plavix Diabetes mellitus, followed and managed by primary care physician Debility, receiving physical therapy Plan: Continue current cardiac regimen Monitor lab ABEL LAUREN MD FACP FACC CCDS Jun 02, 2020 19:32
[2020-06-02] MEDS: ALPRAZolam 0.25 MG (XANAX) TAB PO PRN (20:26)
[2020-06-02] MEDS: MELATONIN 3 MG TABLET PO PRN (20:26)
[2020-06-03 06:32] VITALS: BP 156/70
[2020-06-03] MEDS: RT-ALBUTEROL/IPRATROPIUM 3 ML (DUONEB) VIAL IH SCH (08:33)
[2020-06-03] MEDS: RT-BUDESONIDE NEBS 0.5 MG/2ML (PULMICORT) AMP IH SCH (08:33)
[2020-06-03] MEDS: CLOPIDOGREL 75 MG (PLAVIX) TABLET PO SCH (08:36)
[2020-06-03] MEDS: ASPIRIN 81 MG CHEW (CHILDREN'S ASA) PO SCH (08:36)
[2020-06-03] MEDS: FAMOTIDINE 20 MG (PEPCID) TABLET PO SCH (08:36)
[2020-06-03] MEDS: DOCUSATE SODIUM 100 MG (COLACE) CAP PO SCH (08:37)
[2020-06-03] MEDS: amLODIPine 5 MG (NORVASC) TAB PO SCH (08:37)
[2020-06-03] MEDS: CARVEDILOL 3.125 MG (COREG) TABLET PO SCH (08:37)
[2020-06-03] MEDS: SENNA W/DOCUSATE (SENOKOT S) TABLET PO SCH (08:37)
[2020-06-03] MEDS: polyethylene glycoL POWDER 17 GM (MIRALAX) PACK PO SCH (08:37)
[2020-06-03] MEDS: MICONAZOLE NITRATE 2% CRM 30 GM TP SCH (08:38)
--- NOTE | 2020-06-03 08:47 | NUR ---
CALL PLACED TO DR. WAGNER'S OFFICE TO SCHEDULE [facility], LEFT MESSAGE, THEY ARE GOING TO RETURN CALL
--- NOTE | 2020-06-03 10:20 | Therapy Team Discharge Summary ---
Therapy Discharge Summary Discharge Recommendations Date of Discharge Physical Therapy Patient came to rehab following a CVA. Upon evaluation patient performed bed mobility with min assist, supine to sit with min assist, sit to supine mod assist, sit to stand min assist, transfers mod assist, car transfer mod assist, ambulated 3' in the parallel bars, and was dependent for WC mobility. Patient has been performing bed mobility and transfer training, balance and endurance training, functional strengthening, stair training, gait training, and education. Patient has made some progress and has met all of her long-term goals except for WC mobility. Now, patient performs bed mobility and transfers with setup, car transfer independent, ambulates 150' with a rolling walker with setup (including 50' with at least 2 turns of 90 degrees and 10' over an uneven surface, propels a manual WC with setup, can crab picker an object from the floor with setup, and can go up and down 4 steps using 2 handrails with CGA. Patient is discharging from this facility today and will be discharged from PT at this time. Occupational Therapy Decreased Activ Tolerance, Decreased Safety Aware, Decreased UE Strength, Dependent Transfers, Impaired Bed Mobility, Impaired Cognition, Impaired Coordination, Impaired Funct Balance, Impaired I ADL's, Impaired Self-Care Skills, Restricted Funct UE ROM, Visual-Perceptual Deficit PT Chcf Goals Chcf Goals PT Chcf Goals Time Frame: Jun 02, 2020 Roll Left to Right (QC): 6 Sit to Lying (QC): 6 Lying-Sitting on Side/Bed(QC): 6 Sit to Stand (QC): 4 Chair/Dpn-sl-Xdokm Xfer(QC): 4 Car Transfer (QC): 4 Does the Patient Walk: Yes Walk 10 feet (QC): 3 (met) Walk 10ft-Uneven Surface(QC): 3 Walk 50ft with 2 Turns (QC): 3 (met) Walk 150 ft (QC): 88 Does the Pt use WC or Scooter?: Yes Wheel 50 feet with 2 turns (QC: 6 1 Step (curb) (QC): 3 4 Steps (QC): 88 12 Steps (QC): 88 Picking up an Object (QC): 88 OT Chcf Goals Matrix Drier Tender Goals Time Frame: Jun 09, 2020 Eating (QC): 4 Oral Hygiene (QC): 4 Shower/Bathe Self (QC): 3 Upper Body Dressing (QC): 5 Lower Body Dressing (QC): 4 On/Off Footwear (QC): 4 Toileting Hygiene (QC): 3 Toilet/Commode Transfer (QC): 4 Additional Goals: 1-Demonstrate ADL Tasks, 2-Verbalize Understanding, 3- ImproveStrength/Robbin 1=Demonstrate adherence to instructed precautions during ADL tasks. 2=Patient will verbalize/demonstrate understanding of assistive devices/modifications for ADL. 3=Patient will improve strength/tolerance for activity to enable patient to perform ADL's. Speech Matrix Drier Tender Goals Matrix Drier Tender Goals Patient will improve communication abilities and safe oral intake in order to re turn to prior level. SHREYA FIGUEREDO PT Jun 03, 2020 10:20
[2020-06-03 11:00] VITALS: BP 132/71
--- NOTE | 2020-06-03 11:00 | NUR ---
Pt discharged home w dgtr/family. Pt was very happy & eager to go home, pt made good progress while on ARU.
--- NOTE | 2020-06-03 11:49 | Therapy Team Discharge Summary ---
Therapy Discharge Summary Discharge Recommendations Date of Discharge Occupational Therapy Decreased Activ Tolerance, Decreased Safety Aware, Decreased UE Strength, Dependent Transfers, Impaired Bed Mobility, Impaired Cognition, Impaired Coordination, Impaired Funct Balance, Impaired I ADL's, Impaired Self-Care Skil ls, Restricted Funct UE ROM, Visual-Perceptual Deficit Speech-Language Pathology Patient was admitted to the ARU s/p CVA. Patient exhibited moderate expressive aphasia. She received skilled ST but made only minimal progress with her a phasia. She was able to demo use of automatic speech but had significant difficulty with confrontational naming or answering direct questions. Patient discharged to her daughter's home this date where she will receive home health services. PT Patent Law Specialist Goals Fpc Goals PT Fpc Goals Time Frame: Jun 02, 2020 Roll Left to Right (QC): 6 Sit to Lying (QC): 6 Lying-Sitting on Side/Bed(QC): 6 Sit to Stand (QC): 4 Chair/Kxe-nn-Vuopk Xfer(QC): 4 Car Transfer (QC): 4 Does the Patient Walk: Yes Walk 10 feet (QC): 3 (met) Walk 10ft-Uneven Surface(QC): 3 Walk 50ft with 2 Turns (QC): 3 (met) Walk 150 ft (QC): 88 Does the Pt use WC or Scooter?: Yes Wheel 50 feet with 2 turns (QC: 6 1 Step (curb) (QC): 3 4 Steps (QC): 88 12 Steps (QC): 88 Picking up an Object (QC): 88 OT Patent Law Specialist Goals Patent Law Specialist Goals Time Frame: Jun 09, 2020 Eating (QC): 4 Oral Hygiene (QC): 4 Shower/Bathe Self (QC): 3 Upper Body Dressing (QC): 5 Lower Body Dressing (QC): 4 On/Off Footwear (QC): 4 Toileting Hygiene (QC): 3 Toilet/Commode Transfer (QC): 4 Additional Goals: 1-Demonstrate ADL Tasks, 2-Verbalize Understanding, 3- ImproveStrength/Robbin 1=Demonstrate adherence to instructed precautions during ADL tasks. 2=Patient will verbalize/demonstrate understanding of assistive devices/modifications for ADL. 3=Patient will improve strength/tolerance for activity to enable patient to perform ADL's. Speech Patent Law Specialist Goals Fpc Goals Patient will improve communication abilities and safe oral intake in order to return to prior level. SHERYL TAYLOR Jun 03, 2020 11:49
--- NOTE | 2020-06-03 12:15 | Discharge Summary ---
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 Ensure adequate anticoagulation 2. PT, OT, and STEEL INSPECTOR eval's and treat 3. Oxygen via NC- wean as tolerated 4. Resume Home medications 5. Fall precautions 6. Dietary consult 7. DVT prophylaxis 05/13/20: Patient participating well No pain reported Continue current meds Advance diet 05/14/20: James DC soon Continue home meds Therapies to continue protocol 05/15/20: Dr Houston appreciated Monitor BP Monitor labs 05/16/20: Bladder meds Appreciate Dr Houston PT OT ST 05/17/20: Voiding trial Monitor closely Variable moods 05/18/20: Monitor BP Encourage PO intake James cath management 05/19/20: Encourage participation with therapies Monitor james cath 05/20/20: Monitor closely Bladder management 05/21/20: Monitor closely Cath maintained? 05/22/20: Cath in place Check labs in am Increased dose of Urecholine 05/23/20: Monitor bladder function Increased dose of Urecholine 05/24/20: Maintain james catheter IRF protocol Family evaluating DC plans 05/25/20: DC next week James cath in place now Monitor for falls 05/26/20: Voiding well without cath now Monitor closely 05/27/20: DC accuchecks Dramatic improvement since admit 05/28/20: Monitor dysphagia PT OT Monitor voiding 05/29/20: Decrease Urecholine Monitor BP Fall risk 05/30/20: Monitor voiding Fall risk DC later this week 05/31/20: Monitor closely DC planning 06/01/20: Monitor constipation DC planned Saturday06/02/20: DC planned Patient sleeping at current time of seen Discharge is planned for tomorrow We will establish her care with me The patient has a mobility limitation that significantly impairs his/her ability to do one or more mobility-related activities of daily living in the home. The patient's mobility imitation can not be helped solely with a cane or walker. The patient has enough room inside their residence for a wheelchair. The patient can safely use a wheelchair on their own or with the help of a caregiver. (1) CVA (cerebral vascular accident) (2) Dysarthria (3) Dysphagia (4) PEG (percutaneous endoscopic gastrostomy) status (5) Expressive aphasia (6) Smoker (7) COPD (chronic obstructive pulmonary disease) (8) CAD (coronary artery disease) (9) Hx of CABG (10) James catheter in place (11) Retention of urine Discharge Summary Discharge Physical Examination Allergies: Coded Allergies: No Known Drug Allergies (Unverified , 05/12/20) Vitals & I&Os Vital Signs Date Time Temp Pulse Resp B/P (MAP) Pulse Ox O2 Delivery O2 Flow Rate FiO2 06/03/20 11:00 36.8 72 20 132/71 97 Room Air General Appearance: Alert, Oriented X3, Cooperative HEENT: Atraumatic Respiratory: Clear to Auscultation Cardiovascular: Regular Rate Psych/Mental Status: Mental Status NL Hospital Course Was the Problem List Reviewed?: Yes Hospital course: Patient had an uneventful 23-day hospital course after admitted after suffering a catastrophic stroke. She had significant urinary retention with an indwelling catheter that required urology consultation and multiple medications and multiple catheterizations but ultimately patient was able to spontaneously void without difficulty and was weaned off Urecholine. Patient did have cardiology consultation and multiple medications were recommended to prevent secondary complications from the stroke. Nicotine patch maintained and smoking cessation was counseled. She is able to participate in all therapies with PT and OT and speech therapy in order to regain enough function to actually walk with assistance with platform walker along with wheelchair mobility skills and swallow without aspiration. She will live with her daughter and she will establish with my clinic as her primary care provider. Labs (last 24 hrs) Laboratory Tests 05/12/20 16:54: Glucometer 73 05/12/20 20:44: Glucometer 185H 05/13/20 05:25: Glucometer 50*L 05/13/20 06:22: White Blood Count 5.8, Red Blood Count 4.25, Hemoglobin 12.2, Hematocrit 40, Mean Corpuscular Volume 94, Mean Corpuscular Hemoglobin 29, Mean Corpuscular Hemoglobin Concent 30L, Red Cell Distribution Width 15.6H, Platelet Count 346, Mean Platelet Volume 9.6, Immature Granulocyte % (Auto) 0, Neutrophils (%) (Auto) 61, Lymphocytes (%) (Auto) 27, Monocytes (%) (Auto) 10, Eosinophils (%) (Auto) 2, Basophils (%) (Auto) 1, Neutrophils # (Auto) 3.5, Lymphocytes # (Auto) 1.6, Monocytes # (Auto) 0.6, Eosinophils # (Auto) 0.1, Basophils # (Auto) 0.0, Immature Granulocyte # (Auto) 0.0, Sodium Level 139, Potassium Level 4.2, Chloride Level 102, Carbon Dioxide Level 23, Anion Gap 14, Blood Urea Nitrogen 12, Creatinine 0.58L, Estimat Glomerular Filtration Rate > 60, BUN/Creatinine Ratio 21, Glucose Level 105, Calcium Level 9.3, Corrected Calcium 9.5, Total Bilirubin 0.3, Aspartate Amino Transf (AST/SGOT) 22, Alanine Aminotransferase (ALT/SGPT) 31, Alkaline Phosphatase 106, Total Protein 7.0, Albumin 3.8 05/13/20 06:47: Glucometer 116H 05/13/20 10:56: Glucometer 89 05/13/20 15:37: Glucometer 122H 05/13/20 20:04: Glucometer 122H 05/14/20 05:42: Glucometer 112H 05/14/20 11:40: Glucometer 143H 05/14/20 15:21: Glucometer 160H 05/14/20 20:03: Glucometer 159H 05/15/20 05:28: Glucometer 119H 05/15/20 10:42: Glucometer 147H 05/15/20 15:19: Glucometer 189H 05/15/20 20:06: Glucometer 185H 05/16/20 05:15: Glucometer 115H 05/16/20 05:31: White Blood Count 5.1, Red Blood Count 4.63, Hemoglobin 13.6, Hematocrit 43, Mean Corpuscular Volume 93, Mean Corpuscular Hemoglobin 29, Mean Corpuscular Hemoglobin Concent 32, Red Cell Distribution Width 14.8H, Platelet Count 211, Mean Platelet Volume 10.4, Immature Granulocyte % (Auto) 1, Neutrophils (%) (Auto) 53, Lymphocytes (%) (Auto) 31, Monocytes (%) (Auto) 10, Eosinophils (%) (Auto) 4, Basophils (%) (Auto) 1, Neutrophils # (Auto) 2.7, Lymphocytes # (Auto) 1.6, Monocytes # (Auto) 0.5, Eosinophils # (Auto) 0.2, Basophils # (Auto) 0.0, Immature Granulocyte # (Auto) 0.1, Sodium Level 136, Potassium Level 3.8, Chloride Level 102, Carbon Dioxide Level 20L, Anion Gap 14, Blood Urea Nitrogen 8, Creatinine 0.57L, Estimat Glomerular Filtration Rate > 60, BUN/Creatinine Ratio 14, Glucose Level 124H, Calcium Level 9.2, Corrected Calcium 9.5, Total Bilirubin 0.4, Aspartate Amino Transf (AST/SGOT) 25, Alanine Aminotransferase (ALT/SGPT) 23, Alkaline Phosphatase 97, Total Protein 6.8, Albumin 3.6 05/16/20 10:53: Glucometer 179H 05/16/20 15:56: Glucometer 153H 05/16/20 20:57: Glucometer 165H 05/17/20 05:33: Glucometer 124H 05/17/20 10:46: Glucometer 157H 05/17/20 16:58: Glucometer 154H 05/17/20 20:43: Glucometer 158H 05/18/20 05:20: Glucometer 169H 05/18/20 10:14: Glucometer 166H 05/18/20 15:36: Glucometer 150H 05/19/20 05:34: Glucometer 147H 05/19/20 10:56: Glucometer 143H 05/19/20 15:39: Glucometer 168H 05/20/20 06:12: Glucometer 147H 05/20/20 16:03: Glucometer 125H 05/21/20 05:44: Glucometer 115H 05/21/20 16:19: Glucometer 139H 05/22/20 06:27: Glucometer 134H 05/22/20 16:10: Glucometer 174H 05/23/20 05:48: White Blood Count 6.1, Red Blood Count 4.15, Hemoglobin 11.7, Hematocrit 38, Mean Corpuscular Volume 92, Mean Corpuscular Hemoglobin 28, Mean Corpuscular Hemoglobin Concent 31L, Red Cell Distribution Width 15.0H, Platelet Count 353, Mean Platelet Volume 9.9, Immature Granulocyte % (Auto) 1, Neutrophils (%) (Auto) 58, Lymphocytes (%) (Auto) 29, Monocytes (%) (Auto) 10, Eosinophils (%) (Auto) 2, Basophils (%) (Auto) 1, Neutrophils # (Auto) 3.5, Lymphocytes # (Auto) 1.8, Monocytes # (Auto) 0.6, Eosinophils # (Auto) 0.1, Basophils # (Auto) 0.0, Immature Granulocyte # (Auto) 0.0, Sodium Level 141, Potassium Level 3.6, Chloride Level 107, Carbon Dioxide Level 22, Anion Gap 12, Blood Urea Nitrogen 7, Creatinine 0.56L, Estimat Glomerular Filtration Rate > 60, BUN/Creatinine Ratio 13, Glucose Level 123H, Calcium Level 8.5, Corrected Calcium 8.9, Total Bilirubin 0.2, Aspartate Amino Transf (AST/SGOT) 20, Alanine Aminotransferase (ALT/SGPT) 19, Alkaline Phosphatase 94, Total Protein 6.4, Albumin 3.5 05/23/20 16:58: Glucometer 127H 05/24/20 05:52: Glucometer 141H 05/24/20 16:36: Glucometer 110 05/25/20 05:40: Glucometer 115H 05/25/20 16:27: Glucometer 122H 05/26/20 05:54: Glucometer 133H 05/26/20 15:43: Glucometer 117H 05/27/20 06:18: Glucometer 123H 05/30/20 04:45: White Blood Count 5.9, Red Blood Count 4.18, Hemoglobin 11.7, Hematocrit 38, Mean Corpuscular Volume 90, Mean Corpuscular Hemoglobin 28, Mean Corpuscular Hemoglobin Concent 31L, Red Cell Distribution Width 14.7H, Platelet Count 357, Mean Platelet Volume 9.8, Immature Granulocyte % (Auto) 0, Neutrophils (%) (Auto) 60, Lymphocytes (%) (Auto) 27, Monocytes (%) (Auto) 10, Eosinophils (%) (Auto) 2, Basophils (%) (Auto) 1, Neutrophils # (Auto) 3.5, Lymphocytes # (Auto) 1.6, Monocytes # (Auto) 0.6, Eosinophils # (Auto) 0.1, Basophils # (Auto) 0.0, Immature Granulocyte # (Auto) 0.0, Sodium Level 140, Potassium Level 3.7, Chloride Level 105, Carbon Dioxide Level 23, Anion Gap 12, Blood Urea Nitrogen 8, Creatinine 0.55L, Estimat Glomerular Filtration Rate > 60, BUN/Creatinine Ratio 15, Glucose Level 140H, Calcium Level 8.9, Corrected Calcium 9.1, Total Bilirubin 0.2, Aspartate Amino Transf (AST/SGOT) 20, Alanine Aminotransferase (ALT/SGPT) 16, Alkaline Phosphatase 96, Total Protein 6.9, Albumin 3.7 Pending Labs Laboratory Tests 05/12/20 16:54: Glucometer 73 05/12/20 20:44: Glucometer 185 05/13/20 05:25: Glucometer 50 05/13/20 06:22: White Blood Count 5.8, Red Blood Count 4.25, Hemoglobin 12.2, Hematocrit 40, Mean Corpuscular Volume 94, Mean Corpuscular Hemoglobin 29, Mean Corpuscular Hemoglobin Concent 30, Red Cell Distribution Width 15.6, Platelet Count 346, Mean Platelet Volume 9.6, Immature Granulocyte % (Auto) 0, Neutrophils (%) (Auto) 61, Lymphocytes (%) (Auto) 27, Monocytes (%) (Auto) 10, Eosinophils (%) (Auto) 2, Basophils (%) (Auto) 1, Neutrophils # (Auto) 3.5, Lymphocytes # (Auto) 1.6, Monocytes # (Auto) 0.6, Eosinophils # (Auto) 0.1, Basophils # (Auto) 0.0, Immature Granulocyte # (Auto) 0.0, Sodium Level 139, Potassium Level 4.2, Chloride Level 102, Carbon Dioxide Level 23, Anion Gap 14, Blood Urea Nitrogen 12, Creatinine 0.58, Estimat Glomerular Filtration Rate > 60, BUN/Creatinine Ratio 21, Glucose Level 105, Calcium Level 9.3, Corrected Calcium 9.5, Total Bilirubin 0.3, Aspartate Amino Transf (AST/SGOT) 22, Alanine Aminotransferase (ALT/SGPT) 31, Alkaline Phosphatase 106, Total Protein 7.0, Albumin 3.8 05/13/20 06:47: Glucometer 116 05/13/20 10:56: Glucometer 89 05/13/20 15:37: Glucometer 122 05/13/20 20:04: Glucometer 122 05/14/20 05:42: Glucometer 112 05/14/20 11:40: Glucometer 143 05/14/20 15:21: Glucometer 160 05/14/20 20:03: Glucometer 159 05/15/20 05:28: Glucometer 119 05/15/20 10:42: Glucometer 147 05/15/20 15:19: Glucometer 189 05/15/20 20:06: Glucometer 185 05/16/20 05:15: Glucometer 115 05/16/20 05:31: White Blood Count 5.1, Red Blood Count 4.63, Hemoglobin 13.6, Hematocrit 43, Mean Corpuscular Volume 93, Mean Corpuscular Hemoglobin 29, Mean Corpuscular Hemoglobin Concent 32, Red Cell Distribution Width 14.8, Platelet Count 211, Mean Platelet Volume 10.4, Immature Granulocyte % (Auto) 1, Neutrophils (%) (Auto) 53, Lymphocytes (%) (Auto) 31, Monocytes (%) (Auto) 10, Eosinophils (%) (Auto) 4, Basophils (%) (Auto) 1, Neutrophils # (Auto) 2.7, Lymphocytes # (Auto) 1.6, Monocytes # (Auto) 0.5, Eosinophils # (Auto) 0.2, Basophils # (Auto) 0.0, Immature Granulocyte # (Auto) 0.1, Sodium Level 136, Potassium Level 3.8, Chloride Level 102, Carbon Dioxide Level 20, Anion Gap 14, Blood Urea Nitrogen 8, Creatinine 0.57, Estimat Glomerular Filtration Rate > 60, BUN/Creatinine Ratio 14, Glucose Level 124, Calcium Level 9.2, Corrected Calcium 9.5, Total Bilirubin 0.4, Aspartate Amino Transf (AST/SGOT) 25, Alanine Aminotransferase (ALT/SGPT) 23, Alkaline Phosphatase 97, Total Protein 6.8, Albumin 3.6 05/16/20 10:53: Glucometer 179 05/16/20 15:56: Glucometer 153 05/16/20 20:57: Glucometer 165 05/17/20 05:33: Glucometer 124 05/17/20 10:46: Glucometer 157 05/17/20 16:58: Glucometer 154 05/17/20 20:43: Glucometer 158 05/18/20 05:20: Glucometer 169 05/18/20 10:14: Glucometer 166 05/18/20 15:36: Glucometer 150 05/19/20 05:34: Glucometer 147 05/19/20 10:56: Glucometer 143 05/19/20 15:39: Glucometer 168 05/20/20 06:12: Glucometer 147 05/20/20 16:03: Glucometer 125 05/21/20 05:44: Glucometer 115 05/21/20 16:19: Glucometer 139 05/22/20 06:27: Glucometer 134 05/22/20 16:10: Glucometer 174 05/23/20 05:48: White Blood Count 6.1, Red Blood Count 4.15, Hemoglobin 11.7, Hematocrit 38, Mean Corpuscular Volume 92, Mean Corpuscular Hemoglobin 28, Mean Corpuscular Hemoglobin Concent 31, Red Cell Distribution Width 15.0, Platelet Count 353, Mean Platelet Volume 9.9, Immature Granulocyte % (Auto) 1, Neutrophils (%) (Auto) 58, Lymphocytes (%) (Auto) 29, Monocytes (%) (Auto) 10, Eosinophils (%) (Auto) 2, Basophils (%) (Auto) 1, Neutrophils # (Auto) 3.5, Lymphocytes # (Auto) 1.8, Monocytes # (Auto) 0.6, Eosinophils # (Auto) 0.1, Basophils # (Auto) 0.0, Immature Granulocyte # (Auto) 0.0, Sodium Level 141, Potassium Level 3.6, Chloride Level 107, Carbon Dioxide Level 22, Anion Gap 12, Blood Urea Nitrogen 7, Creatinine 0.56, Estimat Glomerular Filtration Rate > 60, BUN/Creatinine Ratio 13, Glucose Level 123, Calcium Level 8.5, Corrected Calcium 8.9, Total Bilirubin 0.2, Aspartate Amino Transf (AST/SGOT) 20, Alanine Aminotransferase (ALT/SGPT) 19, Alkaline Phosphatase 94, Total Protein 6.4, Albumin 3.5 05/23/20 16:58: Glucometer 127 05/24/20 05:52: Glucometer 141 05/24/20 16:36: Glucometer 110 05/25/20 05:40: Glucometer 115 05/25/20 16:27: Glucometer 122 05/26/20 05:54: Glucometer 133 05/26/20 15:43: Glucometer 117 05/27/20 06:18: Glucometer 123 05/30/20 04:45: White Blood Count 5.9, Red Blood Count 4.18, Hemoglobin 11.7, Hematocrit 38, Mean Corpuscular Volume 90, Mean Corpuscular Hemoglobin 28, Mean Corpuscular Hemoglobin Concent 31, Red Cell Distribution Width 14.7, Platelet Count 357, Mean Platelet Volume 9.8, Immature Granulocyte % (Auto) 0, Neutrophils (%) (Auto) 60, Lymphocytes (%) (Auto) 27, Monocytes (%) (Auto) 10, Eosinophils (%) (Auto) 2, Basophils (%) (Auto) 1, Neutrophils # (Auto) 3.5, Lymphocytes # (Auto) 1.6, Monocytes # (Auto) 0.6, Eosinophils # (Auto) 0.1, Basophils # (Auto) 0.0, Immature Granulocyte # (Auto) 0.0, Sodium Level 140, Potassium Level 3.7, Chloride Level 105, Carbon Dioxide Level 23, Anion Gap 12, Blood Urea Nitrogen 8, Creatinine 0.55, Estimat Glomerular Filtration Rate > 60, BUN/Creatinine Ratio 15, Glucose Level 140, Calcium Level 8.9, Corrected Calcium 9.1, Total Bilirubin 0.2, Aspartate Amino Transf (AST/SGOT) 20, Alanine Aminotransferase (ALT/SGPT) 16, Alkaline Phosphatase 96, Total Protein 6.9, Albumin 3.7 Discharge Home Medications: Active Scripts Active Famotidine 20 Mg Tablet 20 Mg PO DAILY Senna-Time S Tablet (Sennosides/Docusate Sodium) 1 Each Tablet 1 Ea PO BID Iprat-Albut 0.5-3(2.5) mg/3 ml (Ipratropium/Albuterol Sulfate) 3 Ml Ampul.neb 3 Ml IH RTBID Budesonide 0.5 Mg/2 Ml Ampul.neb 0.5 Mg IH RTBID Aspirin 81 Mg Tab.chew 81 Mg PO DAILY Amlodipine Besylate 5 Mg Tablet 10 Mg PO DAILY Carvedilol 3.125 Mg Tablet 3.125 Mg PO BID Lipitor (Atorvastatin Calcium) 40 Mg Tablet 40 Mg PO DAILY Clopidogrel (Clopidogrel Bisulfate) 75 Mg Tablet 75 Mg PO DAILY Instructions to patient/family Please see electronic discharge instructions given to patient. Diagnosis/Problems Diagnosis/Problems (1) CVA (cerebral vascular accident) (2) Dysarthria (3) Dysphagia (4) PEG (percutaneous endoscopic gastrostomy) status (5) Expressive aphasia (6) Smoker (7) COPD (chronic obstructive pulmonary disease) Qualifiers: Qualified Codes: J44.9 - Chronic obstructive pulmonary disease, unspecified (8) CAD (coronary artery disease) (9) Hx of CABG (10) James catheter in place (11) Retention of urine Clinical Quality Measures DVT/VTE Risk/Contraindication: Risk Factor Score Per Nursin RFS Level Per Nursing on Admit: 4+=Very High BECKI WAGNER DO Jun 03, 2020 12:15
--- NOTE | 2020-06-03 12:56 | NUR ---
CM/SS DISCHARGE Patient discharged home with her daughter and her spouse as planned. She will now reside with them in [place] permanently. [facility]: [facility] will be providing services for patient, RN PT OT and ST. DME: Kadeem delivered FWW with Right Platform, wheelchair. Family had already secured all other recommended assistive devices. IMM2 presented, reviewed, signed, charted. Unit RN aware of all timelines.
--- NOTE | 2020-06-03 16:55 | Progress Note - Cardiology ---
Cardiology SOAP Progress Note Subjective: Malaise present No cp or palp or syncope or shortness of breath No n/v/d Objective: I&O/Vital Signs 06/03/20 06/03/20 06:32 11:00 Temp 36.5 36.8 Pulse 68 72 Resp 20 20 B/P (MAP) 156/70 (98) 132/71 Pulse Ox 93 97 O2 Delivery Room Air Room Air 06/03/20 00:00 Intake Total 650 ml Balance 650 ml Constitutional: AAO x 3, well-developed, well-nourished, other (mild expressive aphasia) Respiratory: No accessory muscle use, No respiratory distress; chest expansion is symmetric, chest is bilaterally symmetric, lungs clear to auscultation Cardiovascular: regular rate-rhythm; No JVD; S1 and S2 Gastrointestional: No tender; soft, round, audible bowel sounds Extremities: no lower extremity edema bilateral Neurologic/Psychiatric: other (right-sided weakness and mild expressive dysphasia) A/P: Assessment: 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 Coronary artery disease status post CABG 3 Hypertension Hyperlipidemia Questionable peripheral arterial disease with ischemic event after her bypass has improved after conservative management, continue on Plavix Diabetes mellitus, followed and managed by primary care physician Debility, receiving physical therapy Plan: Continue current cardiac regimen Monitor lab No cardiology coverage over the weekend. Primary attending managing ABEL LAUREN MD FACP FAC CCDS Jun 03, 2020 16:55
--- NOTE | 2020-06-06 11:20 | Therapy Team Discharge Summary ---
Therapy Discharge Summary Discharge Recommendations Date of Discharge Jun 03, 2020 at 11:00 Therapy D/C Recommendations: 24 hr Supervision, Home w/ Family Support, Occupational Therapy Home Care Occupational Therapy Pt. has been seen by occupational therapy to increase overall strength and independence with daily skills. Pt. has not met most goals due to requiring continued max assistance with most skills. Pt. has difficulty due to right sided weakness, right sided neglect, aphasia, and ability to communicate. Pt. has discharged home with family support, and would benefit from occupational therapy within the home. Pt. did make great progress with transfers and ability to ambulate with platform walker. Please see PT note. Decreased Activ Tolerance, Decreased Safety Aware, Decreased UE Strength, Dependent Transfers, Impaired Bed Mobility, Impaired Cognition, Impaired Coordination, Impaired Funct Balance, Impaired I ADL's, Impaired Self-Care Skills, Restricted Funct UE ROM, Visual-Perceptual Deficit PT Halfway Goals Halfway Goals PT Halfway Goals Time Frame: Jun 02, 2020 Roll Left to Right (QC): 6 Sit to Lying (QC): 6 Lying-Sitting on Side/Bed(QC): 6 Sit to Stand (QC): 4 Chair/[id number]-fw-Ekjwp Xfer(QC): 4 Car Transfer (QC): 4 Does the Patient Walk: Yes Walk 10 feet (QC): 3 (met) Walk 10ft-Uneven Surface(QC): 3 Walk 50ft with 2 Turns (QC): 3 (met) Walk 150 ft (QC): 88 Does the Pt use WC or Scooter?: Yes Wheel 50 feet with 2 turns (QC: 6 1 Step (curb) (QC): 3 4 Steps (QC): 88 12 Steps (QC): 88 Picking up an Object (QC): 88 OT Knife Finisher Goals Halfway Goals Time Frame: Jun 09, 2020 Eating (QC): 4 (met) Oral Hygiene (QC): 4 (met) Shower/Bathe Self (QC): 3 (not met) Upper Body Dressing (QC): 5 (not met) Lower Body Dressing (QC): 4 (not met) On/Off Footwear (QC): 4 (not met) Toileting Hygiene (QC): 3 (not met) Toilet/Commode Transfer (QC): 4 (not met) Additional Goals: 1-Demonstrate ADL Tasks, 2-Verbalize Understanding, 3- ImproveStrength/Robbin 1=Demonstrate adherence to instructed precautions during ADL tasks. 2=Patient will verbalize/demonstrate understanding of assistive devices/modifications for ADL. 3=Patient will improve strength/tolerance for activity to enable patient to perform ADL's. Speech Halfway Goals Halfway Goals Patient will improve communication abilities and safe oral intake in order to return to prior level. RALPH LUO OT Jun 06, 2020 11:19
== END 2020-06-03 11:00 | disposition home health service (06) | DRG 92 ==
PROVIDERS: ADMIT Internal Medicine; ATTEND Internal Medicine
DX: I97.821 Postprocedural cerebrovascular infarction following other surgery (principal); G72.81 Critical illness myopathy; I69.351 Hemiplegia and hemiparesis following cerebral infarction affecting right dominant side; I69.322 Dysarthria following cerebral infarction; I69.320 Aphasia following cerebral infarction; I69.398 Other sequelae of cerebral infarction; I69.391 Dysphagia following cerebral infarction; N31.9 Neuromuscular dysfunction of bladder, unspecified; R33.9 Retention of urine, unspecified; I25.10 Atherosclerotic heart disease of native coronary artery without angina pectoris; E11.51 Type 2 diabetes mellitus with diabetic peripheral angiopathy without gangrene; R13.10 Dysphagia, unspecified; J44.9 Chronic obstructive pulmonary disease, unspecified; B37.3 Candidiasis of vulva and vagina; E78.5 Hyperlipidemia, unspecified; K59.00 Constipation, unspecified; I10 Essential (primary) hypertension; Z79.4 Long term (current) use of insulin; Z87.891 Personal history of nicotine dependence; Z95.1 Presence of aortocoronary bypass graft; Z93.1 Gastrostomy status; Z79.82 Long term (current) use of aspirin
CPT/HCPCS: 36415; 80053; 82962; 85025; 94640; 94760

== ENCOUNTER 2020-08-26 12:42 | Emergency (ER) | payer MEDICARE, MEDICAID ==
[~2020-08-26] VITALS: Ht 149.8 cm; Wt 62.5 kg
[~2020-08-26 12:42] MED LIST: ACET325C7 PO; ALB0.5V INH; AMLO-250 PO; ASPI-999 PO; ATOR40TA PO; ATOR40TA70 PO; BUDE0.5A IH; CARV3.122 PO; CLOP75TA28 PO; FAMO20TA3 PO; FAMO20TA5 PO; INSU100V SQ; INSU100V6 SQ; IPRA3AMP31 IH; SENN-20 PO
[2020-08-26] MEDS ORDERED: ASPIRIN 81 MG CHEW (CHILDREN'S ASA) PO ONE (13:00)
[2020-08-26 13:07] LABS: BASOPHILS % (AUTO) 1 % (0-10); EOSINOPHILS # (AUTO) 0.1 10^3/uL (0.0-0.3); EOSINOPHILS % (AUTO) 2 % (0-10); HEMATOCRIT 40 % (35-52); HEMOGLOBIN 12.6 g/dL (11.5-16.0); LYMPHOCYTES # (AUTO) 2.1 10^3/uL (1.0-4.0); LYMPHOCYTES % (AUTO) 30 % (12-44); MEAN CORPUSCULAR HEMOGLOBIN 26 pg (25-34); MEAN CORPUSCULAR HGB CONC 31 g/dL (32-36); MEAN CORPUSCULAR VOLUME 83 fL (80-99); MEAN PLATELET VOLUME 9.5 fL (9.0-12.2); MONOCYTES # (AUTO) 0.6 10^3/uL (0.0-1.0); MONOCYTES % (AUTO) 9 % (0-12); NEUTROPHILS % (AUTO) 59 % (42-75); PLATELET COUNT 355 10^3/uL (130-400); WHITE BLOOD COUNT 6.8 10^3/uL (4.3-11.0)
--- NOTE | 2020-08-26 13:07 | ED Chest Pain ---
General Chief Complaint: Cardiac/General Problems Stated Complaint: STROKE LIKE SYMPTOMS Nursing Triage Note: PT AMB TO [facility] 5 WITH COMPLAINT OF CP AND FELT LIKE HEART WAS BEATING OUT OF CHEST. STATES STARTED THIS MORNING. Nursing Sepsis Screen: No Definite Risk Source: patient, family Exam Limitations: no limitations History of Present Illness Date Seen by Provider: Aug 26, 2020 Time Seen by Provider: 12:45 Initial Comments 75-year-old female who presents to the emergency room with complaints of left- sided chest pain and feels like her heart is beating out of her chest. She reports that this started this morning around 9 AM. Family was concerned that she was having a stroke because she is having left-sided facial tingling. Family reports that she had a quadruple bypass last March and while in the hospital had a stroke. She was admitted to [facility] inpatient rehab after discharge from the hospital. NIH of 0 on arrival. Timing/Duration: 1-3 hours Severity/Quality: moderate Location: substernal Radiation: other (Left cheek) Activities at Onset: none Prior CP/Workup: cardiac cath, heart attack ASA po BELLHOP: No NTG SL BELLHOP: No Allergies and Home Medications Allergies Coded Allergies: No Known Drug Allergies (Unverified , 05/12/20) Home Medications Amlodipine Besylate 5 Mg Tablet, 10 MG PO DAILY Prescribed by: BECKI WAGNER on 06/02/201650 Aspirin 81 Mg Tab.chew, 81 MG PO DAILY Prescribed by: BECKI WAGNER on 06/02/201650 Atorvastatin Calcium 40 Mg Tablet, 40 MG PO DAILY Prescribed by: BECKI WAGNER on 06/02/201650 Budesonide 0.5 Mg/2 Ml Ampul.neb, 0.5 MG IH RTBID Prescribed by: BECKI WAGNER on 06/02/201650 Carvedilol 3.125 Mg Tablet, 3.125 MG PO BID Prescribed by: BECKI WAGNER on 06/02/20 165 Cephalexin 500 Mg Tablet, 500 MG PO TID Prescribed by: ALBERTA SHAH on 08/26/20 1530 Clopidogrel Bisulfate 75 Mg Tablet, 75 MG PO DAILY Prescribed by: BECKI WAGNER on 06/02/20 165 Famotidine 20 Mg Tablet, 20 MG PO DAILY Prescribed by: BECKI WAGNER on 06/02/201650 Ipratropium/Albuterol Sulfate 3 Ml Ampul.neb, 3 ML IH RTBID Prescribed by: BECKI WAGNER on 06/02/201650 Sennosides/Docusate Sodium 1 Each Tablet, 1 EA PO BID Prescribed by: BECKI WAGNER on 06/02/201650 Patient Home Medication List Home Medication List Reviewed: Yes Review of Systems Review of Systems Constitutional: see HPI; No chills, No fever Cardiovascular: See HPI, Chest Pain All Other Systems Reviewed Negative Unless Noted: Yes Past Ohpmtec-Hjbjtr-Ugsyiv Hx Patient Social History Alcohol Use: Denies Use Smoking Status: Former Smoker Type Used: Cigarettes Recent Infectious Disease Expo: No Recent Hopitalizations: No (CVA AND BYPASS SURGERY) Immunizations Up To Date Tetanus Booster (TDap): Unknown Date of Influenza Vaccine: May 10, 2020 Seasonal Allergies Seasonal Allergies: No Past Medical History Surgeries: Yes Cardiac, CABG, Open Heart Surgery Respiratory: Yes COPD Currently Using CPAP: No Currently Using BIPAP: No Cardiac: Yes (STENTS, BYPASS ) Cardiomyopathy, Coronary Artery Disease, High Cholesterol, Hypertension Neurological: No Stroke Sexually Transmitted Disease: No HIV/AIDS: No Genitourinary: No Gastrointestinal: No Musculoskeletal: No Arthritis Endocrine: No Diabetes, Non-Insulin dep HEENT: No Hearing Impairment: Denies Cancer: No Psychosocial: No Integumentary: No Blood Disorders: No Family Medical History Patient reports no known family medical history. Physical Exam Vital Signs Vital Signs - First Documented 08/26/20 08/26/20 12:45 16:12 Temp 36.2 Pulse 92 Resp 20 B/P (MAP) 148/80 (102) Pulse Ox 100 O2 Delivery Room Air Capillary Refill : Less Than 3 Seconds Height, Weight, BMI Height: '" Weight: lbs. oz. kg; 27.00 BMI Method: General Appearance: No Apparent Distress, WD/WN HEENT: PERRL/EOMI, TMs Normal, Normal ENT Inspection, Pharynx Normal Neck: Full Range of Motion, Normal Inspection, Non Tender Respiratory: Chest Non Tender, Lungs Clear, Normal Breath Sounds, No Accessory Muscle Use, No Respiratory Distress Cardiovascular: Regular Rate, Rhythm, No Edema, No Gallop, No JVD, No Murmur, Normal Peripheral Pulses Gastrointestinal: Normal Bowel Sounds, No Organomegaly, No Pulsatile Mass, Non Tender Extremity: Normal Capillary Refill, No Calf Tenderness, No Pedal Edema Neurologic/Psychiatric: Alert, Oriented x3, Normal Mood/Affect Skin: Normal Color, Warm/Dry Progress/Results/Core Measures Results/Orders Lab Results Laboratory Tests Test 08/26/20 13:00 08/26/20 13:04 08/26/20 13:14 08/26/20 15:14 Range/Units White Blood Count 6.8 4.3-11.0 10^3/uL Red Blood Count 4.85 3.80-5.11 10^6/uL Hemoglobin 12.6 11.5-16.0 g/dL Hematocrit 40 35-52 % Mean Corpuscular Volume 83 80-99 fL Mean Corpuscular Hemoglobin 26 25-34 pg Mean Corpuscular Hemoglobin Concent 31 L 32-36 g/dL Red Cell Distribution Width 16.3 H 10.0-14.5 % Platelet Count 355 130-400 10^3/uL Mean Platelet Volume 9.5 9.0-12.2 fL Immature Granulocyte % (Auto) 0 % Neutrophils (%) (Auto) 59 42-75 % Lymphocytes (%) (Auto) 30 12-44 % Monocytes (%) (Auto) 9 0-12 % Eosinophils (%) (Auto) 2 0-10 % Basophils (%) (Auto) 1 0-10 % Neutrophils # (Auto) 4.0 1.8-7.8 10^3/uL Lymphocytes # (Auto) 2.1 1.0-4.0 10^3/uL Monocytes # (Auto) 0.6 0.0-1.0 10^3/uL Eosinophils # (Auto) 0.1 0.0-0.3 10^3/uL Basophils # (Auto) 0.0 0.0-0.1 10^3/uL Immature Granulocyte # (Auto) 0.0 0.0-0.1 10^3/uL Prothrombin Time 12.8 12.2-14.7 SEC INR Comment 0.9 0.8-1.4 Activated Partial Thromboplast Time 34 24-35 SEC D-Dimer 0.74 H 0.00-0.49 UG/ML Sodium Level 140 135-145 MMOL/L Potassium Level 3.9 3.6-5.0 MMOL/L Chloride Level 106 98-107 MMOL/L Carbon Dioxide Level 24 21-32 MMOL/L Anion Gap 10 5-14 MMOL/L Blood Urea Nitrogen 10 7-18 MG/DL Creatinine 0.65 0.60-1.30 MG/DL Estimat Glomerular Filtration Rate > 60 BUN/Creatinine Ratio 15 Glucose Level 127 H 70-105 MG/DL Calcium Level 9.0 8.5-10.1 MG/DL Corrected Calcium 8.9 8.5-10.1 MG/DL Magnesium Level 1.9 1.6-2.4 MG/DL Total Bilirubin 0.2 0.1-1.0 MG/DL Aspartate Amino Transf (AST/SGOT) 13 5-34 U/L Alanine Aminotransferase (ALT/SGPT) 14 0-55 U/L Alkaline Phosphatase 100 40-136 U/L Myoglobin 18.4 10.0-92.0 NG/ML Troponin I < 0.028 < 0.028 <0.028 NG/ML B-Type Natriuretic Peptide 93.8 <100.0 PG/ML Total Protein 7.7 6.4-8.2 GM/DL Albumin 4.1 3.2-4.5 GM/DL Amylase Level 56 25-125 U/L Glucometer 117 H 70-110 MG/DL Urine Color YELLOW Urine Clarity CLEAR Urine pH 6.0 5-9 Urine Specific [place] <=1.005 1.016-1.022 Urine Protein NEGATIVE NEGATIVE Urine Glucose (UA) NEGATIVE NEGATIVE Urine Ketones NEGATIVE NEGATIVE Urine Nitrite NEGATIVE NEGATIVE Urine Bilirubin NEGATIVE NEGATIVE Urine Urobilinogen 0.2 < = 1.0 MG/DL Urine Leukocyte Esterase 2+ H NEGATIVE Urine RBC (Auto) NEGATIVE NEGATIVE Urine RBC NONE /HPF Urine WBC 25-50 H /HPF Urine Squamous Epithelial Cells 25-50 H /HPF Urine Crystals NONE /LPF Urine Bacteria FEW H /HPF Urine Casts NONE /LPF Urine Mucus NEGATIVE /LPF Urine Culture Indicated YES My Orders Orders - BERNOT,ALBERTA Cbc With Automated Diff (08/26/20 12:45) Protime With Inr (08/26/20 12:45) Partial Thromboplastin Time (08/26/20 12:45) Comprehensive Metabolic Panel (08/26/20 12:45) Fibrin Degradation Products (08/26/20 12:45) Troponin I (08/26/20 12:45) Ua Culture If Indicated (08/26/20 12:45) Chest 1 View, Ap/Pa Only (08/26/20 12:45) Ekg Tracing (08/26/20 12:45) Accucheck Stat ONCE (08/26/20 12:45) Ed Iv/Invasive Line Start (08/26/20 12:45) Ed Iv/Invasive Line Start (08/26/20 12:45) Vital Signs Stroke Patient Q15M (08/26/20 12:45) Ct Head Wo-R/O Stroke (08/26/20 12:45) O2 (08/26/20 12:45) Intake & Output 06,14,22 (08/26/20 12:45) Monitor-Rhythm Ecg Trace Only (08/26/20 12:45) Dysphagia Screening Tool (08/26/20 12:45) Post Thrombolytic Adminstratio (08/26/20 12:45) Aspirin Chewable Tablet (Baby Aspirin Ch (08/26/20 13:00) Magnesium (08/26/20 13:07) Myoglobin Serum (08/26/20 13:07) Amylase (08/26/20 13:07) BNP (08/26/20 13:07) Urine Culture (08/26/20 13:14) Iohexol Injection (Omnipaque 350 Mg/Ml 1 (08/26/20 14:00) Received Contrast (Hold Metformin- Contr (08/26/20 14:00) Ns (Ivpb) (Sodium Chloride 0.9% Ivpb Bag (08/26/20 14:00) Troponin I (08/26/20 14:55) Medications Given in ED Current Medications Medications Dose Ordered Sig/Lorena Route Start Time Stop Time Status Last Admin Dose Admin Aspirin 324 mg ONCE ONCE PO 08/26/20 13:00 08/26/20 13:01 DC 08/26/20 13:00 324 MG Vital Signs/I&O 08/26/20 08/26/20 12:45 16:12 Temp 36.2 Pulse 92 75 Resp 20 15 B/P (MAP) 148/80 (102) 178/90 Pulse Ox 100 O2 Delivery Room Air Room Air Blood Pressure Mean: 102 Progress Progress Note : Time: 14:25 Progress Note I have discussed the case with Dr. Wagner at this time. She recommends not doing the CT angio given that the D-dimer is just slightly elevated. She recommends repeating the troponin, starting the patient on antibiotics for UTI, having her follow-up in her office next week for an appointment. Departure Impression Primary Impression: Chest pain Additional Impression: UTI (urinary tract infection) Disposition: 01 HOME, SELF-CARE Condition: Stable/Unchanged Departure-Patient Inst. Decision time for Depature: 15:27 Referrals: NO,LOCAL PHYSICIAN (PCP/Family) Primary Care Physician Patient Instructions: Urinary Tract Infection, Adult (DC), Chest Pain (DC) Add. Discharge Instructions: Resume your home medications as previously prescribed. Take antibiotics as directed. Drink plenty of fluids and stay hydrated to help flush out your kidneys and urinary tract. Call Dr. Wagner's office first thing Saturday morning for an appointment time. Return back to the emergency room for worsening symptoms or concerns as needed. All discharge instructions reviewed with patient and/or family. Voiced understanding. Scripts Cephalexin (Cephalexin) 500 Mg Tablet 500 MG PO TID for 7 Days, #21 TAB Prov: ALBERTA SHAH 08/26/20 ALBERTA SHAH Aug 26, 2020 13:07
[2020-08-26 13:18] LABS: ALBUMIN 4.1 GM/DL (3.2-4.5)
[2020-08-26 13:19] LABS: CHLORIDE 106 MMOL/L (98-107); POTASSIUM 3.9 MMOL/L (3.6-5.0); SODIUM 140 MMOL/L (135-145)
[2020-08-26 13:19] LABS: BILIRUBIN,URINE NEGATIVE (NEGATIVE); CLARITY,URINE CLEAR; COLOR,URINE YELLOW; GLUCOSE, URINE (UA) NEGATIVE (NEGATIVE); KETONES,URINE NEGATIVE (NEGATIVE); LEUKOCYTE ESTERASE ,URINE 2+ (NEGATIVE); NITRITE,URINE NEGATIVE (NEGATIVE); PROTEIN,URINE NEGATIVE (NEGATIVE)
[2020-08-26 13:21] LABS: GLUCOSE 127 MG/DL (70-105); TOTAL PROTEIN 7.7 GM/DL (6.4-8.2)
[2020-08-26 13:22] LABS: CARBON DIOXIDE 24 MMOL/L (21-32); FIBRIN DEGRADATION PRODUCTS 0.74 UG/ML (0.00-0.49); INR 0.9 (0.8-1.4); PROTHROMBIN TIME PATIENT 12.8 SEC (12.2-14.7)
[2020-08-26 13:23] LABS: BILIRUBIN,TOTAL 0.2 MG/DL (0.1-1.0)
[2020-08-26 13:24] LABS: ALKALINE PHOSPHATASE 100 U/L (40-136)
[2020-08-26 13:25] LABS: CREATININE SERUM 0.65 MG/DL (0.60-1.30); GFR ESTIMATED > 60; MAGNESIUM 1.9 MG/DL (1.6-2.4)
[2020-08-26 13:25] LABS: BACTERIA,URINE FEW /HPF; WBC,URINE 25-50 /HPF
[2020-08-26 13:26] LABS: SQUAMOUS EPITHELIAL CELL,UR 25-50 /HPF
[2020-08-26 13:26] LABS: BUN/CREATININE RATIO 15
[2020-08-26 13:27] LABS: ALANINE AMINOTRANSFERASE 14 U/L (0-55)
--- NOTE | 2020-08-26 13:32 | Diagnostic Imaging Report ---
INDICATION: Stroke. FINDINGS: There is elevation of the left hemidiaphragm. There are postsurgical changes about the left hilum. There is scarring or atelectasis in left lung base. There has been previous median sternotomy and coronary bypass graft. Right lung is clear. No pneumothorax. IMPRESSION: Elevation of left hemidiaphragm with some scarring or atelectasis of the left lung base. Cardiomegaly. Dictated by: Dictated on workstation # [id number]
--- NOTE | 2020-08-26 13:48 | Diagnostic Imaging Report ---
PROCEDURE: CT head wo r/o stroke. TECHNIQUE: Multiple contiguous axial images were obtained through the brain without the use of intravenous contrast. Auto Exposure Controls were utilized during the CT exam to meet ALARA standards for radiation dose reduction. INDICATION: Stroke. Speech problems. Left-sided facial droop. COMPARISON: None. FINDINGS: Chronic infarcts in the posterior left frontal lobe and throughout the entire left [employer]ACH[employer] distribution. Chronic lacunar infarct in the right thalamus and deep white matter of the right frontal lobe. Moderate generalized cerebral and cerebellar parenchymal volume loss. No CT evidence of an acute territorial infarction. No intracranial hemorrhage, mass effect or extra-axial fluid collections. Osseous structures are intact. Visualized paranasal sinuses and mastoids are clear. IMPRESSION: 1. No acute intracranial CT findings. 2. Multiple chronic infarcts as above. Dictated by: Dictated on workstation # [id number]
[2020-08-26] MEDS ORDERED: NS 100 ML (IVPB) BAG IV ONE (14:00)
[2020-08-26] MEDS ORDERED: IOHEXOL 350 MG/ML 100 ML (OMNIPAQUE 350) VIAL IV ONE (14:00)
[2020-08-26] MEDS ORDERED: HOLD METFORMIN - RECEIVED CONTRAST 20 ML VIAL IV SCH (14:00)
[2020-08-26] MEDS ORDERED: CEPH500T PO (15:30)
[2020-08-26 16:12] VITALS: BP 178/90
== END 2020-08-26 16:12 | disposition home or self-care (01) ==
LOC: EDUNIT# 12:42 → ER 12:45
DX: R07.9 Chest pain, unspecified (principal); N39.0 Urinary tract infection, site not specified; J44.9 Chronic obstructive pulmonary disease, unspecified; I25.10 Atherosclerotic heart disease of native coronary artery without angina pectoris; I10 Essential (primary) hypertension; E78.00 Pure hypercholesterolemia, unspecified; Z86.73 Personal history of transient ischemic attack (TIA), and cerebral infarction without residual deficits; Z95.1 Presence of aortocoronary bypass graft; Z87.891 Personal history of nicotine dependence; Z95.9 Presence of cardiac and vascular implant and graft, unspecified; Z79.82 Long term (current) use of aspirin
CPT/HCPCS: 36415; 70450; 71045; 80053; 81000; 82150; 82962; 83735; 83874; 83880; 84484; 85025; 85379; 85610; 85730; 87088; 93005; 93041

== ENCOUNTER → 2020-09-16 | Outpatient (CLI) | payer MEDICARE, MEDICAID ==
[~2020-09-16] MED LIST changes: +CEPH500T PO
--- NOTE | 2020-09-16 18:37 | Diagnostic Imaging Report ---
INDICATION: Pseudoaneurysm check. EXAMINATION: Right lower extremity arterial Doppler. Spectral and color-flow imaging was utilized. COMPARISON: There is no prior study available for comparison. FINDINGS: There is a 2.9 x 2.4 x 3.0 cm pseudoaneurysm in the region of the common femoral artery. There is also a 4.2 x 3.3 x 4.3 cm area of altered echogenicity in this region which may represent a hematoma. No other acute vascular abnormality is identified. IMPRESSION: There does appear to be a 2.9 x 2.4 x 3.0 cm pseudoaneurysm arising from the common femoral artery on the right. There also appears to be a hematoma in this area. Dictated by: Dictated on workstation # [id number]
== END ==
LOC: RAD 17:43
PROVIDERS: ATTEND Internal Medicine
DX: I72.4 Aneurysm of artery of lower extremity (principal)
CPT/HCPCS: 93926

== ENCOUNTER 2021-01-11 11:18 | Emergency (ER) | payer MEDICARE, MEDICAID ==
[~2021-01-11] VITALS: Ht 147 cm; Wt 59.4 kg
[2021-01-11 11:57] LABS: BASOPHILS % (AUTO) 0 % (0-10); EOSINOPHILS % (AUTO) 0 % (0-10); HEMATOCRIT 40 % (35-52); HEMOGLOBIN 12.9 g/dL (11.5-16.0); LYMPHOCYTES # (AUTO) 1.5 10^3/uL (1.0-4.0); LYMPHOCYTES % (AUTO) 15 % (12-44); MEAN CORPUSCULAR HEMOGLOBIN 26 pg (25-34); MEAN CORPUSCULAR HGB CONC 32 g/dL (32-36); MEAN CORPUSCULAR VOLUME 80 fL (80-99); MONOCYTES # (AUTO) 1.4 10^3/uL (0.0-1.0); MONOCYTES % (AUTO) 14 % (0-12); NEUTROPHILS # (AUTO) 6.9 10^3/uL (1.8-7.8); NEUTROPHILS % (AUTO) 70 % (42-75); PLATELET COUNT 337 10^3/uL (130-400); WHITE BLOOD COUNT 9.8 10^3/uL (4.3-11.0)
[2021-01-11 12:21] LABS: ALBUMIN 3.9 GM/DL (3.2-4.5)
[2021-01-11 12:22] LABS: CHLORIDE 97 MMOL/L (98-107); POTASSIUM 5.3 MMOL/L (3.6-5.0); SODIUM 132 MMOL/L (135-145)
[2021-01-11 12:23] LABS: CALCIUM 9.3 MG/DL (8.5-10.1)
[2021-01-11 12:24] LABS: GLUCOSE 152 MG/DL (70-105); TOTAL PROTEIN 8.7 GM/DL (6.4-8.2)
[2021-01-11 12:25] LABS: CARBON DIOXIDE 19 MMOL/L (21-32)
[2021-01-11 12:26] LABS: BILIRUBIN,TOTAL 0.6 MG/DL (0.1-1.0)
[2021-01-11 12:27] LABS: ALKALINE PHOSPHATASE 108 U/L (40-136)
[2021-01-11 12:28] LABS: CREATININE SERUM 0.81 MG/DL (0.60-1.30); GFR ESTIMATED > 60
[2021-01-11 12:29] LABS: BUN/CREATININE RATIO 15
[2021-01-11 12:31] LABS: ALANINE AMINOTRANSFERASE 15 U/L (0-55)
--- NOTE | 2021-01-11 12:48 | ED Cough/URI ---
General Chief Complaint: Cough/Cold/Flu Symptoms Stated Complaint: WEAKNESS,SOB Nursing Triage Note: PT PRESENTS TO THE ED C/O EXERTIONAL SOB AND MILD NON PRODUCTIVE COUGH THAT ONSET SATURDAY. PT IS FULLY VACCINATED AGAINST COVID. REPORTS GENERALIZED MALAISE, STATES FAMILY HAS BEEN USING AZO OTC MEDS TO HOME TXT A SUSPECTED UTI. PT DENIES CHEST PAIN, VERBALIZES COPD HX Source: patient Exam Limitations: no limitations History of Present Illness Date Seen by Provider: Jan 11, 2021 Time Seen by Provider: 12:00 Initial Comments To ER with reports of shortness of breath with exertion and a cough worse than usual for the past 2 to 3 days. She has had both Covid vaccinations. She also has general malaise. She does have known OPD. She is been using Azo at home for a suspected urinary tract infection. She does not wear oxygen at home nor does she smoke. 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 Timing/Duration: constant Severity/Quality: moderate Associated Symptoms: cough, shortness of breath Allergies and Home Medications Allergies Coded Allergies: No Known Drug Allergies (Unverified , 05/12/20) Home Medications Amlodipine Besylate 5 Mg Tablet, 10 MG PO DAILY Prescribed by: BECKI WAGNER on 06/02/20 165 Aspirin 81 Mg Tab.chew, 81 MG PO DAILY Prescribed by: BECKI WAGNER on 06/02/201650 Atorvastatin Calcium 40 Mg Tablet, 40 MG PO DAILY Prescribed by: BECKI WAGNER on 06/02/20 165 Budesonide 0.5 Mg/2 Ml Ampul.neb, 0.5 MG IH RTBID Prescribed by: BECKI WAGNER on 06/02/20 165 Carvedilol 3.125 Mg Tablet, 3.125 MG PO BID Prescribed by: BECKI WAGNER on 06/02/20 165 Cefuroxime Axetil 500 Mg Tablet, 500 MG PO BID Prescribed by: ARLINE PRINCE on 01/11/21 1327 Cephalexin 500 Mg Tablet, 500 MG PO TID Prescribed by: ALBERTA SHAH on 08/26/20 1530 Clopidogrel Bisulfate 75 Mg Tablet, 75 MG PO DAILY Prescribed by: BECKI WAGNER on 06/02/20 165 Famotidine 20 Mg Tablet, 20 MG PO DAILY Prescribed by: BECKI WAGNER on 06/02/201650 Ipratropium/Albuterol Sulfate 3 Ml Ampul.neb, 3 ML IH RTBID Prescribed by: BECKI WAGNER on 06/02/201650 Sennosides/Docusate Sodium 1 Each Tablet, 1 EA PO BID Prescribed by: BECKI WAGNER on 06/02/201650 Patient Home Medication List Home Medication List Reviewed: Yes Review of Systems Review of Systems Constitutional: see HPI EENTM: see HPI Respiratory: see HPI, cough, short of breath Cardiovascular: no symptoms reported Genitourinary: no symptoms reported Musculoskeletal: no symptoms reported Skin: no symptoms reported Psychiatric/Neurological: No Symptoms Reported Hematologic/Lymphatic: No Symptoms Reported Past Heixcgd-Qnlyum-Gdgphm Hx Patient Social History Tobacco Use?: No Substance use?: No Alcohol Use?: No Immunizations Up To Date Tetanus Booster (TDap): Unknown Influenza Vaccine Up-to-Date: Yes; Up-to-Date Seasonal Allergies Seasonal Allergies: No Past Medical History Surgeries: Yes Cardiac, CABG, Open Heart Surgery Respiratory: Yes COPD Currently Using CPAP: No Currently Using BIPAP: No Cardiac: Yes (STENTS, BYPASS ) Cardiomyopathy, Coronary Artery Disease, High Cholesterol, Hypertension Neurological: No Stroke Sexually Transmitted Disease: No HIV/AIDS: No Genitourinary: No Gastrointestinal: No Musculoskeletal: No Arthritis Endocrine: No Diabetes, Non-Insulin dep HEENT: No Hearing Impairment: Denies Cancer: No Psychosocial: No Integumentary: No Blood Disorders: No Family Medical History Patient reports no known family medical history. Physical Exam Vital Signs - First Documented 01/11/21 11:55 Temp 36.6 Pulse 76 Resp 18 B/P (MAP) 130/44 (72) Pulse Ox 95 O2 Delivery Room Air Capillary Refill : Less Than 3 Seconds Height: '" Weight: lbs. oz. kg; 27.00 BMI Method: General Appearance: WD/WN, no apparent distress Eyes: Bilateral Eye Normal Inspection, Bilateral Eye PERRL, Bilateral Eye EOMI HEENT: PERRL/EOMI, normal ENT inspection Neck: full range of motion Respiratory: no respiratory distress, no accessory muscle use, decreased breath sounds, rhonchi; No wheezing; other (94% room air without accessory muscle use) Gastrointestinal: normal bowel sounds, non tender, soft Extremities: normal range of motion Neurologic/Psychiatric: alert, normal mood/affect, oriented x 3 Skin: normal color, warm/dry Progress/Results/Core Measures Suspected Sepsis SIRS Temperature: Pulse: 76 Respiratory Rate: 18 Laboratory Tests 01/11/21 11:44: White Blood Count 9.8 Blood Pressure 130 /44 Mean: 72 Laboratory Tests 01/11/21 11:44: Creatinine 0.81, Platelet Count 337, Total Bilirubin 0.6 Results/Orders Lab Results Laboratory Tests Test 01/11/21 11:40 01/11/21 11:44 01/11/21 11:54 01/11/21 12:52 Range/Units Glucometer 166 H 70-110 MG/DL White Blood Count 9.8 4.3-11.0 10^3/uL Red Blood Count 5.06 3.80-5.11 10^6/uL Hemoglobin 12.9 11.5-16.0 g/dL Hematocrit 40 35-52 % Mean Corpuscular Volume 80 80-99 fL Mean Corpuscular Hemoglobin 26 25-34 pg Mean Corpuscular Hemoglobin Concent 32 32-36 g/dL Red Cell Distribution Width 19.1 H 10.0-14.5 % Platelet Count 337 130-400 10^3/uL Mean Platelet Volume 10.0 9.0-12.2 fL Immature Granulocyte % (Auto) 0 % Neutrophils (%) (Auto) 70 42-75 % Lymphocytes (%) (Auto) 15 12-44 % Monocytes (%) (Auto) 14 H 0-12 % Eosinophils (%) (Auto) 0 0-10 % Basophils (%) (Auto) 0 0-10 % Neutrophils # (Auto) 6.9 1.8-7.8 10^3/uL Lymphocytes # (Auto) 1.5 1.0-4.0 10^3/uL Monocytes # (Auto) 1.4 H 0.0-1.0 10^3/uL Eosinophils # (Auto) 0.0 0.0-0.3 10^3/uL Basophils # (Auto) 0.0 0.0-0.1 10^3/uL Immature Granulocyte # (Auto) 0.0 0.0-0.1 10^3/uL Sodium Level 132 L 135-145 MMOL/L Potassium Level 5.3 H 3.6-5.0 MMOL/L Chloride Level 97 L 98-107 MMOL/L Carbon Dioxide Level 19 L 21-32 MMOL/L Anion Gap 16 H 5-14 MMOL/L Blood Urea Nitrogen 12 7-18 MG/DL Creatinine 0.81 0.60-1.30 MG/DL Estimat Glomerular Filtration Rate > 60 BUN/Creatinine Ratio 15 Glucose Level 152 H 70-105 MG/DL Calcium Level 9.3 8.5-10.1 MG/DL Corrected Calcium 9.4 8.5-10.1 MG/DL Magnesium Level 2.0 1.6-2.4 MG/DL Total Bilirubin 0.6 0.1-1.0 MG/DL Aspartate Amino Transf (AST/SGOT) 33 5-34 U/L Alanine Aminotransferase (ALT/SGPT) 15 0-55 U/L Alkaline Phosphatase 108 40-136 U/L B-Type Natriuretic Peptide 32.5 <100.0 PG/ML Total Protein 8.7 H 6.4-8.2 GM/DL Albumin 3.9 3.2-4.5 GM/DL Procalcitonin 0.07 <0.10 NG/ML Influenza Type A (RT-PCR) Not Detected Not Detecte Influenza Type B (RT-PCR) Not Detected Not Detecte SARS-CoV-2 RNA (RT-PCR) Not Detected Not Detecte Urine Color ORANGE Urine Clarity SL CLOUDY Urine pH 6.0 5-9 Urine Specific [place] 1.025 H 1.016-1.022 Urine Protein 2+ H NEGATIVE Urine Glucose (UA) NEGATIVE NEGATIVE Urine Ketones TRACE H NEGATIVE Urine Nitrite POSITIVE H NEGATIVE Urine Bilirubin NEGATIVE NEGATIVE Urine Urobilinogen 1.0 < = 1.0 MG/DL Urine Leukocyte Esterase 2+ H NEGATIVE Urine RBC (Auto) 1+ H NEGATIVE Urine RBC 2-5 H /HPF Urine WBC TNTC H /HPF Urine Squamous Epithelial Cells 10-25 H /HPF Urine Renal Epithelial Cells 2-5 /HPF Urine Crystals NONE /LPF Urine Bacteria LARGE H /HPF Urine Casts NONE /LPF Urine Mucus NEGATIVE /LPF Urine Culture Indicated YES My Orders Orders - ARLINE PRINCE APRN Covid 19 Inhouse Test (01/11/21 11:45) Influenza A And B By Pcr (01/11/21 11:45) Chest 1 View, Ap/Pa Only (01/11/21 11:45) Cbc With Automated Diff (01/11/21 11:45) Comprehensive Metabolic Panel (01/11/21 11:45) BNP (01/11/21 11:45) Magnesium (01/11/21 11:45) Ua Culture If Indicated (01/11/21 11:45) Ed Iv/Invasive Line Start (01/11/21 11:45) Procalcitonin (Pct) (01/11/21 11:57) Ns Iv 500 Ml (Sodium Chloride 0.9%) (01/11/21 13:00) Urine Culture (01/11/21 12:52) Ceftriaxone (Rocephin) (01/11/21 13:30) Vital Signs/I&O 01/11/21 01/11/21 11:55 11:57 Temp 36.6 Pulse 76 Resp 18 B/P (MAP) 130/44 (72) Pulse Ox 95 O2 Delivery Room Air Room Air Capillary Refill : Less Than 3 Seconds Blood Pressure Mean: 72 Departure Impression Primary Impression: UTI (urinary tract infection) Additional Impression: COPD (chronic obstructive pulmonary disease) Disposition: 01 HOME, SELF-CARE Condition: Stable Departure-Patient Inst. Decision time for Depature: 13:26 Referrals: BECKI WAGNER DO (PCP/Family) Primary Care Physician Patient Instructions: Urinary Tract Infection, Adult (DC) Scripts Cefuroxime Axetil (Cefuroxime) 500 Mg Tablet 500 MG PO BID, #10 TAB . Prov: ARLINE PRINCE APRN 01/11/21 ARLINE PRINCE APRN Jan 11, 2021 12:48
[2021-01-11 12:58] LABS: BILIRUBIN,URINE NEGATIVE (NEGATIVE); CLARITY,URINE SL CLOUDY; COLOR,URINE ORANGE; GLUCOSE, URINE (UA) NEGATIVE (NEGATIVE); KETONES,URINE TRACE (NEGATIVE); LEUKOCYTE ESTERASE ,URINE 2+ (NEGATIVE); NITRITE,URINE POSITIVE (NEGATIVE); PROTEIN,URINE 2+ (NEGATIVE)
[2021-01-11] MEDS ORDERED: NS IV 500 ML 500 ML IV SCH (13:00)
--- NOTE | 2021-01-11 13:11 | Diagnostic Imaging Report ---
INDICATION: Chest pain Portable chest 12:59 PM There are postoperative changes from median sternotomy. There is some atelectasis at left lung base. Heart size and pulmonary vascularity are normal. Lungs are clear. IMPRESSION: Postsurgical changes. Left basilar atelectasis. Dictated by: Dictated on workstation # [id number]
[2021-01-11 13:16] LABS: BACTERIA,URINE LARGE /HPF; WBC,URINE TNTC /HPF
[2021-01-11] MEDS ORDERED: CEFU500T63 PO ×2 (13:27→13:32)
[2021-01-11] MEDS ORDERED: cefTRIAXone 1,000 MG in WATER (STERILE) FOR INJECTION 10 ML IV ONE (13:30)
[2021-01-11 13:51] VITALS: BP 119/47
== END 2021-01-11 13:54 | disposition home or self-care (01) ==
LOC: EDUNIT# 11:18 → ER 11:20
DX: J44.9 Chronic obstructive pulmonary disease, unspecified (principal); N39.0 Urinary tract infection, site not specified; I10 Essential (primary) hypertension; I69.351 Hemiplegia and hemiparesis following cerebral infarction affecting right dominant side; E78.00 Pure hypercholesterolemia, unspecified; I25.10 Atherosclerotic heart disease of native coronary artery without angina pectoris; Z95.1 Presence of aortocoronary bypass graft; Z95.5 Presence of coronary angioplasty implant and graft; Z20.822 Contact with and (suspected) exposure to COVID-19; Z79.82 Long term (current) use of aspirin; Z79.51 Long term (current) use of inhaled steroids; Z79.899 Other long term (current) drug therapy
CPT/HCPCS: 36415; 71045; 80053; 81000; 82947; 83735; 83880; 84145; 85025; 87077; 87088; 87186; 87636

== ENCOUNTER 2021-01-26 14:20 | Outpatient (RCR) | payer MEDICARE, MEDICAID ==
[~2021-01-26 14:20] MED LIST changes: +CEFU500T63 PO
== END 2021-01-30 | disposition home or self-care (01) ==
PROVIDERS: ATTEND Internal Medicine
DX: R26.89 Other abnormalities of gait and mobility (principal); Z86.73 Personal history of transient ischemic attack (TIA), and cerebral infarction without residual deficits

== ENCOUNTER 2021-02-27 11:13 | Observation (INO) | payer MEDICARE, MEDICAID ==
[~2021-02-27] VITALS: Ht 150 cm; Wt 57.8 kg
[2021-02-27 11:22] VITALS: BP 175/82
--- NOTE | 2021-02-27 11:25 | ED Neurological Problem ---
General Chief Complaint: Neuro-Stroke Like Symptoms Stated Complaint: SLURRED SPEECH Source: patient Exam Limitations: no limitations History of Present Illness Date Seen by Provider: Feb 27, 2021 Time Seen by Provider: 11:23 Initial Comments To ER by [facility] from [facility]. Complains of strokelike symptoms including trouble speaking noticed her speech therapist morning at around 0815. 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 Deficits at that time included right-sided weakness, dysarthria and expressive aphasia. She is on aspirin and Plavix. Timing/Duration: 4-6 hours Severity: moderate Associated Symptoms: slurred speech Allergies and Home Medications Allergies Coded Allergies: No Known Drug Allergies (Unverified , 05/12/20) Home Medications Amlodipine Besylate 5 Mg Tablet, 10 MG PO DAILY Prescribed by: BECKI WAGNER on 06/02/201650 Last Action: Continued Aspirin 81 Mg Tab.chew, 81 MG PO DAILY Prescribed by: BECKI WAGNER on 06/02/201650 Atorvastatin Calcium 40 Mg Tablet, 40 MG PO DAILY Prescribed by: BECKI WAGNER on 06/02/201650 Last Action: Continued Budesonide 0.5 Mg/2 Ml Ampul.neb, 0.5 MG IH RTBID Prescribed by: BECKI WAGNER on 06/02/201650 Carvedilol 3.125 Mg Tablet, 3.125 MG PO BID Prescribed by: BECKI WAGNER on 06/02/201650 Last Action: Continued Cefuroxime Axetil 500 Mg Tablet, 500 MG PO BID . Prescribed by: ARLINE MEJIA on 01/11/21 1332 Cephalexin 500 Mg Tablet, 500 MG PO TID Prescribed by: ALBERTA SHAH on 08/26/20 1530 Clopidogrel Bisulfate 75 Mg Tablet, 75 MG PO DAILY Prescribed by: BECKI WAGNER on 06/02/201650 Famotidine 20 Mg Tablet, 20 MG PO DAILY Prescribed by: BECKI WAGNER on 06/02/201650 Last Action: Continued Ipratropium/Albuterol Sulfate 3 Ml Ampul.neb, 3 ML IH RTBID Prescribed by: BECKI WAGNER on 06/02/201650 Sennosides/Docusate Sodium 1 Each Tablet, 1 EA PO BID Prescribed by: BECKI WAGNER on 06/02/201650 Patient Home Medication List Home Medication List Reviewed: Yes Review of Systems Review of Systems Constitutional: see HPI Eyes: No Symptoms Reported Ears, Nose, Mouth, Throat: no symptoms reported Respiratory: no symptoms reported Cardiovascular: no symptoms reported Genitourinary: no symptoms reported Musculoskeletal: no symptoms reported Skin: no symptoms reported Psychiatric/Neurological: See HPI Endocrine: No Symptoms Reported Hematologic/Lymphatic: No Symptoms Reported Past Qezhqbo-Tvacci-Fjuwhr Hx Immunizations Up To Date Tetanus Booster (TDap): Unknown Seasonal Allergies Seasonal Allergies: No Past Medical History Surgeries: Yes Cardiac, CABG, Open Heart Surgery Respiratory: Yes COPD Currently Using CPAP: No Currently Using BIPAP: No Cardiac: Yes (STENTS, BYPASS ) Cardiomyopathy, Coronary Artery Disease, High Cholesterol, Hypertension Neurological: No Stroke Sexually Transmitted Disease: No HIV/AIDS: No Genitourinary: No Gastrointestinal: No Musculoskeletal: No Arthritis Endocrine: No Diabetes, Non-Insulin dep HEENT: No Hearing Impairment: Denies Cancer: No Psychosocial: No Integumentary: No Blood Disorders: No Family Medical History Patient reports no known family medical history. Physical Exam Vital Signs Vital Signs - First Documented 02/27/21 02/27/21 11:21 11:22 Temp 36.5 Pulse 68 Resp 17 B/P (MAP) 132/61 (84) Pulse Ox 94 O2 Delivery Room Air Capillary Refill : Height, Weight, BMI Height: '" Weight: lbs. oz. kg; 27.00 BMI Method: General Appearance: WD/WN, no apparent distress, other ( hemodynamically stable alert very pleasant, anxious appearing) HEENT: PERRL/EOMI, normal ENT inspection Neck: non-tender, full range of motion Respiratory: no respiratory distress, no accessory muscle use Cardiovascular: regular rate, rhythm, no murmur Gastrointestinal: normal bowel sounds, non tender, soft Neurologic/Psychiatric: alert, normal mood/affect, oriented x 3 Crainal Nerves: normal hearing, normal speech, PERRL Coordination/Gait: ABN nose to finger (L) Motor/Sensory: no motor deficit, no sensory deficit Skin: normal color, warm/dry Stroke Onset of Symptoms Date of Onset of Symptoms: Feb 27, 2021 Time of Symptom Onset: 08:15 NIH Stroke Scale Assessment Select: Initial Level of Consciousness: 0=Alert (0), Level of Consciousness- Questions: 0=Answers both month/age (0), LOC Commands: 0=Performs both tasks (0), Gaze: Normal (0), Visual Orta: 0=No visual loss (0), Facial Movement (Facial Paresis): 0=Normal symmetrical mnt (0), Motor Function-Arms Right: 0=No drift (0), Motor Function-Arms Left: 0=No drift (0), Motor Function-Legs Right: 0=No drift (0), Motor Function-Legs Left: 0=No drift (0), Limb Ataxia: 1=Present in one limb (1), Sensory: 0=Normal:no loss (0), Best Language: 1=Mild to moderat aphasia (1), Dysarthria: 1=Mild to moderate loss (1), Extinction & Inattention: 0=No abnormality (0), Total: 3 Stroke Thrombolytic Exclusion Age 18 or Over: Yes Acute intenal hemorrhage: No History of CVA: No Uncontrolled Coagulation Defec: No Intracranial Hemorrhage: No Severe Hypertension: No GI or Bleed: No Subarachnoid Hemorrhage: No Intracranial Neoplasm/Aneurysm: No Oral Anticoagulants: No Surgery or Trauma: No Puncture of Non-Compressible V: No Recent CPR: No Diabetic Hemorrhagic Retinopat: No Organ Biopsy: No Recent Obstetric Delivery: No Glucose: No Significant Hepatic Dysfunctio: No NIH Stoke Scale >22: No Bacterial Endocarditis: No Pericarditis: No Improving Symptoms: No Platelets: No TPA Contraindication: No Progress/Results/Core Measures Results/Orders Lab Results Laboratory Tests Test 02/27/21 11:15 02/27/21 12:27 Range/Units White Blood Count 8.3 4.3-11.0 10^3/uL Red Blood Count 4.75 3.80-5.11 10^6/uL Hemoglobin 13.0 11.5-16.0 g/dL Hematocrit 41 35-52 % Mean Corpuscular Volume 86 80-99 fL Mean Corpuscular Hemoglobin 27 25-34 pg Mean Corpuscular Hemoglobin Concent 32 32-36 g/dL Red Cell Distribution Width 19.6 H 10.0-14.5 % Platelet Count 403 H 130-400 10^3/uL Mean Platelet Volume 9.8 9.0-12.2 fL Immature Granulocyte % (Auto) 0 % Neutrophils (%) (Auto) 71 42-75 % Lymphocytes (%) (Auto) 21 12-44 % Monocytes (%) (Auto) 7 0-12 % Eosinophils (%) (Auto) 0 0-10 % Basophils (%) (Auto) 0 0-10 % Neutrophils # (Auto) 5.9 1.8-7.8 10^3/uL Lymphocytes # (Auto) 1.8 1.0-4.0 10^3/uL Monocytes # (Auto) 0.6 0.0-1.0 10^3/uL Eosinophils # (Auto) 0.0 0.0-0.3 10^3/uL Basophils # (Auto) 0.0 0.0-0.1 10^3/uL Immature Granulocyte # (Auto) 0.0 0.0-0.1 10^3/uL Sodium Level 139 135-145 MMOL/L Potassium Level 4.0 3.6-5.0 MMOL/L Chloride Level 103 98-107 MMOL/L Carbon Dioxide Level 24 21-32 MMOL/L Anion Gap 12 5-14 MMOL/L Blood Urea Nitrogen 10 7-18 MG/DL Creatinine 0.71 0.60-1.30 MG/DL Estimat Glomerular Filtration Rate 80 BUN/Creatinine Ratio 14 Glucose Level 243 H 70-105 MG/DL Calcium Level 9.8 8.5-10.1 MG/DL Corrected Calcium 9.7 8.5-10.1 MG/DL Total Bilirubin 0.3 0.1-1.0 MG/DL Aspartate Amino Transf (AST/SGOT) 14 5-34 U/L Alanine Aminotransferase (ALT/SGPT) 17 0-55 U/L Alkaline Phosphatase 94 40-136 U/L Troponin I < 0.028 <0.028 NG/ML Total Protein 7.8 6.4-8.2 GM/DL Albumin 4.1 3.2-4.5 GM/DL Urine Color YELLOW Urine Clarity CLEAR Urine pH 7.0 5-9 Urine Specific [place] <=1.005 1.016-1.022 Urine Protein NEGATIVE NEGATIVE Urine Glucose (UA) 2+ H NEGATIVE Urine Ketones NEGATIVE NEGATIVE Urine Nitrite NEGATIVE NEGATIVE Urine Bilirubin NEGATIVE NEGATIVE Urine Urobilinogen 0.2 < = 1.0 MG/DL Urine Leukocyte Esterase TRACE H NEGATIVE Urine RBC (Auto) NEGATIVE NEGATIVE Urine RBC NONE /HPF Urine WBC 10-25 H /HPF Urine Squamous Epithelial Cells 5-10 /HPF Urine Crystals NONE /LPF Urine Bacteria TRACE /HPF Urine Casts NONE /LPF Urine Mucus NEGATIVE /LPF Urine Culture Indicated YES My Orders Orders - ARLINE MEJIA APRN Cbc With Automated Diff (02/27/21 11:20) Protime With Inr (02/27/21 11:20) Partial Thromboplastin Time (02/27/21 11:20) Comprehensive Metabolic Panel (02/27/21 11:20) Fibrin Degradation Products (02/27/21 11:20) Troponin I (02/27/21 11:20) Ua Culture If Indicated (02/27/21 11:20) Chest 1 View, Ap/Pa Only (02/27/21 11:20) Ekg Tracing (02/27/21 11:20) Accucheck Stat ONCE (02/27/21 11:20) Ed Iv/Invasive Line Start (02/27/21 11:20) Ed Iv/Invasive Line Start (02/27/21 11:20) Vital Signs Stroke Patient Q15M (02/27/21 11:20) Ct Head Wo-R/O Stroke (02/27/21 11:20) O2 (02/27/21 11:20) Intake & Output 06,14,22 (02/27/21 11:20) Monitor-Rhythm Ecg Trace Only (02/27/21 11:20) Dysphagia Screening Tool (02/27/21 11:20) Post Thrombolytic Adminstratio (02/27/21 11:20) Lipid Panel (02/28/21 06:00) Ct Angio Head/Neck (02/27/21 11:20) Iohexol Injection (Omnipaque 350 Mg/Ml 1 (02/27/21 11:45) Received Contrast (Hold Metformin- Contr (02/27/21 11:45) Ns (Ivpb) (Sodium Chloride 0.9% Ivpb Bag (02/27/21 11:45) Sodium Chloride Flush (Catheter Flush Sy (02/27/21 11:45) Mri Brain W/O Contrast (02/27/21 12:49) Urine Culture (02/27/21 12:27) Ceftriaxone (Rocephin) (02/27/21 14:45) Medications Given in ED Current Medications Medications Dose Ordered Sig/Lorena Route Start Time Stop Time Status Last Admin Dose Admin Iohexol 75 ml ONCE ONCE IV 02/27/21 11:45 02/27/21 11:46 DC 02/27/21 11:58 75 ML Sodium Chloride 10 ml NEEDED PRN IV 02/27/21 11:45 02/27/21 16:11 DC 02/27/21 11:58 10 ML Sodium Chloride 100 ml ONCE ONCE IV 02/27/21 11:45 02/27/21 11:46 DC 02/27/21 11:58 80 ML Vital Signs/I&O 02/27/21 02/27/21 11:21 11:22 Temp 36.5 Pulse 68 66 Resp 17 18 B/P (MAP) 132/61 (84) 175/82 Pulse Ox 94 O2 Delivery Room Air Departure Communication (Admissions) Family Conversation NAME: JACINTO FAIRCHILD [facility] REC#: [id number] PT STATUS: REG ER : 1945 PHYSICIAN: ARLINE MEJIA APRN ADMIT DATE: 02/27/21/ER Draft Date of Exam:02/27/21 MRI BRAIN W/O CONTRAST Clinical indications: Patient with possible stroke, dysarthria, ataxia, left-sided weakness. Patient has history of old strokes. Exam: MRI of the brain performed without IV contrast. Sequences include axial DWI, ADC map, axial gradient echo, axial T2, axial FLAIR, and axial T1. Comparison: CT angiogram of head/neck dated 02/27/2021. Findings: There is a 3 mm focal area of elevated DWI signal with normalized ADC map signal involving the high posterior left frontal region near the region of the precentral gyrus. This may represent a focal area of subacute infarct. There are no other areas of infarct seen. There is no right cerebral hemisphere abnormality noted. There is no intracranial hemorrhage, brain herniation or midline shift. There is a small to moderate sized chronic cerebral infarct with cystic encephalomalacia involving the lateral left frontal/parietal region. There is a moderate-sized chronic cerebral infarct with cystic encephalomalacia involving the left occipital lobe and medial posterior left temporal lobe regions. There is high T1 signal involving the cortical region of the left occipital lobe and left temporal lobe chronic infarct regions likely related to laminar necrosis. There is no hemosiderin staining to suggest sequelae of parenchymal hemorrhage. There is no brain herniation or midline shift. There are other focal and patchy areas of high T2 signal white matter changes involving both cerebral hemispheres and periventricular regions, likely representing chronic small vessel ischemic disease and leukoaraiosis. Diffuse brain parenchymal volume loss is seen. The sellar and suprasellar regions are unremarkable. The extracranial soft tissues, skull, and orbits are unremarkable. There is moderate mucosal thickening involving right maxillary sinus with small air-fluid level. There is a small mucus retention cyst involving left maxillary sinus. There is moderate consolidation of fluid involving the left sphenoid sinus region. There is mild ethmoid sinus mucosal thickening. There is small amount of fluid involving right mastoid air cells. IMPRESSION: 1: There is a focal area of abnormal signal involving the high posterior left frontal lobe region which may represent an subacute infarct. 2: Otherwise is no MRI evidence of acute cerebral infarct, intracranial hemorrhage, brain herniation or midline shift. There is no hydrocephalus. 3: There is chronic cerebral infarct with cystic encephalomalacia involving the left occipital lobe/medial posterior left temporal lobe region and lateral left frontal/parietal lobe regions. 4: Age-related brain parenchymal changes including chronic small vessel ischemic disease and leukoaraiosis. 5: There is paranasal sinus disease. There is small amount of fluid in the right mastoid air cells. Dictated on workstation # [id number] Dict: 02/27/21 1400 Trans: 02/27/21 1414 CVB [id number] Interpreted by: BERNARD ROCHA MD Electronically signed by: [id number]-from what I can tell, the expressive aphasia and dysarthria was a deficit noted during her last CVA. She scores 3 on the NIH stroke scale for expressive aphasia and dysarthria. The only new deficit that I can find today is questionable ataxia with [id number] test left hand. This is minimal at best. Differential includes recurrent CVA versus other illness causing recrudescence of old stroke symptoms. 1433-Lakeshia spoken with Dr osman from stroke neurology. recommends maintaining DAPT, add high intensity statin if not already on it. D/w Dr Wagner and will admit obs with tx for UTI. NAME: JACINTO FAIRCHILD [facility] REC#: [id number] PT STATUS: REG ER : 1945 PHYSICIAN: ARLINE MEJIA FUEL QUALITY TECH ADMIT DATE: 02/27/21/ER Draft Date of Exam:02/27/21 CT ANGIO HEAD/NECK Clinical indication: Emergency Room non-activation. Left arm weakness. Evaluate for LVO. Exams: 1: Head CT with and without IV contrast. Auto Exposure Controls were utilized during the CT exam to meet ALARA standards for radiation dose reduction. 2: CT angiogram of the head and neck performed with 100 cc of Omnipaque 350 IV contrast. Sagittal and coronal MIP reformations were created for better visualization of vascular anatomy. CT angiogram was post-processed using RAPID LVO detection to include quantitative measurements of cerebral blood flow and automated results notification to the stroke and/or neurointerventional team. Comparison: Head CT without contrast dated 02/27/2021.. Findings: Head CT: There is stable appearance of the brain parenchyma with no abnormal IV contrast enhancement. Again seen moderate sized chronic cerebral infarct involving the left occipital lobe and medial posterior left temporal lobe region. Stable small chronic infarct involving the posterior lateral left frontal lobe/parietal lobe region. Brain parenchymal volume loss is seen. There are small areas of low-attenuation involving both cerebral hemispheres, likely from chronic infarct changes. There is no evidence of intraparenchymal hemorrhage, brain herniation midline shift. There is no hydrocephalus. The extracranial soft tissue, skull, and orbits are unremarkable. There is moderate amount of peripheral mucosal thickening involving right maxillary sinus. There is consolidation of the left sphenoid sinus region and mild ethmoid sinus mucosal thickening. There is a small mucus retention cyst involving left maxillary sinus. CT ANGIOGRAM: Three-vessel aortic arch is seen. There is mild stenosis of the origin of the right subclavian artery due to atherosclerotic disease. Otherwise bilateral subclavian arteries are patent. There is motion artifact which obscures portions of the proximal great vessels. There is significant motion artifact which may be related to swallowing which obscures the C3 on C4 vertebral body levels in the region of the bilateral carotid bifurcations. There is an endovascular stent within the distal right common carotid artery and proximal right cervical ICA which is patent. There is mild narrowing seen within the stent. There is tortuosity and mild narrowing with kinking of the mid to distal cervical right ICA. There is atherosclerotic disease of the left ICA bulb with motion artifact significantly obscuring the region and unable to evaluate this area. There is tortuosity and mild kinking of the mid cervical left ICA. The remainder of the cervical left ICA is patent. There is atherosclerotic disease involving the bilateral cavernous carotid arteries. There is mild to moderate stenosis involving the left ICA bulb. There is moderate stenosis involving the paraclinoid left ICA. There is mild narrowing involving the paraclinoid right ICA. The bilateral ECAs are patent as visualized. There is atherosclerotic disease involving the proximal cervical right vertebral with moderate stenosis extending from the proximal portion to the C7 level with slightly lens-shaped appearance. There is moderate to severe short segment stenosis involving the right cervical vertebral artery at the C6 level. The remainder of the cervical right vertebral artery is patent. There is mild to moderate stenosis involving the intradural right vertebral artery distally. There is occlusion of the cervical and left vertebral artery with some short segment areas of reconstitution proximally with continuous contrast seen within the cervical left vertebral artery at the C3 vertebral body level. There are areas of vascular irregularity and mild to moderate narrowing involving the distal cervical left vertebral artery. There is moderate stenosis involving the intradural cervical left vertebral artery proximally. The left PICA is patent. The post PICA left vertebral artery is patent. There is no significant stenosis of the basilar artery. There is short segment area of moderate to severe stenosis involving the left P2 [employer]INE [employer]PERATOR region. Normal-appearing caliber left P1 [employer]INE [employer]ATOR is seen. There is contrast seen within the distal left P2 and P3 [employer]YING [employer]INE OPERATOR regions in the area of infarct. There is a small caliber absent right P1 [employer]YING MACHINE OPERATOR. There is a right P[employer]YING MACHINE OPERATOR. The right [employer]YING MACHINE OPERATOR and distal branches are patent. The ACAs and distal branches are patent. There is mild narrowing involving the proximal right M1 MCA. There is a small left M2 MCA branch which appears to be in the superior segment which extends into the anterior sylvian fissure region which has diminished contrast within it. This may be related to proximal stenosis or clot. The right MCA and distal branches are otherwise patent. The dural venous sinuses are patent. The jugular veins are patent as visualized. Multiple bilateral thyroid nodules are noted. The neck soft tissue structures show no other significant abnormality. Emphysematous disease of the visualized upper lungs are noted. There is cervical spine degenerative disease including grade 1 anterolisthesis of C4 on C5. IMPRESSION: 1: Stable CT scan of the brain with no evidence of interval acute intracranial hemorrhage or cerebral infarct. 2: Again seen chronic infarct involving the left occipital lobe, medial posterior left temporal lobe and posterior left frontal/parietal region laterally. MRI of the brain with and without contrast may help better evaluate for acute finding. 3: There is diminished contrast within a small caliber left M2 MCA vessel which appears to be in the superior segment and extends in the anterior left sylvian fissure region. This is of unknown age. Relation to patient's chronic cerebral infarct may be considered. 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 There are also areas of stenosis of the intradural left vertebral artery. 5: There is a short segment area of moderate to severe stenosis involving the cervical right vertebral artery at the C6 level and an area of moderate stenosis involving the proximal cervical right ICA to the C7 level which may also be related to vascular dissection of unknown age. The remainder of the cervical right vertebral artery is patent. 6: There is motion artifact which obscures the bilateral carotid artery bifurcations with the left side being uninterpretable. There is an endovascular stent involving the distal right common carotid artery extending to the proximal cervical right ICA which is patent. 7: There is a short segment area of moderate to severe stenosis involving the left P2 [employer]YING MACHINE OPERATOR, of unknown age. This may be related to chronic cerebral infarct in the region. Results of this report was discussed with Arline Mejia APRN via the telephone on 02/27/2021 at 1245 hours. Dictated on workstation # [id number] Dict: 02/27/21 1214 Trans: 02/27/21 1303 [facility] [id number] Interpreted by: BERNARD ROCHA MD Electronically signed by: Impression Primary Impression: Expressive aphasia Additional Impressions: Dysphagia UTI (urinary tract infection) Disposition: ADMITTED INPATIENT Condition: Stable Admissions Decision to Admit Reason: Admit from ER (General) Decision to Admit/Date: Feb 27, 2021 Time/Decision to Admit Time: 14:34 Departure-Patient Inst. Referrals: BECKI WAGNER DO (PCP/Family) Primary Care Physician ARLINE MEJIA APRN Feb 27, 2021 11:24
[2021-02-27 11:36] LABS: BASOPHILS % (AUTO) 0 % (0-10); EOSINOPHILS % (AUTO) 0 % (0-10); HEMATOCRIT 41 % (35-52); LYMPHOCYTES # (AUTO) 1.8 10^3/uL (1.0-4.0); LYMPHOCYTES % (AUTO) 21 % (12-44); MEAN CORPUSCULAR HEMOGLOBIN 27 pg (25-34); MEAN CORPUSCULAR HGB CONC 32 g/dL (32-36); MEAN CORPUSCULAR VOLUME 86 fL (80-99); MEAN PLATELET VOLUME 9.8 fL (9.0-12.2); MONOCYTES # (AUTO) 0.6 10^3/uL (0.0-1.0); MONOCYTES % (AUTO) 7 % (0-12); NEUTROPHILS # (AUTO) 5.9 10^3/uL (1.8-7.8); NEUTROPHILS % (AUTO) 71 % (42-75); PLATELET COUNT 403 10^3/uL (130-400); WHITE BLOOD COUNT 8.3 10^3/uL (4.3-11.0)
[2021-02-27] MEDS ORDERED: NS 100 ML (IVPB) BAG IV ONE (11:45)
[2021-02-27] MEDS ORDERED: IOHEXOL 350 MG/ML 100 ML (OMNIPAQUE 350) VIAL IV ONE (11:45)
[2021-02-27] MEDS ORDERED: HOLD METFORMIN - RECEIVED CONTRAST 20 ML VIAL IV SCH (11:45)
[2021-02-27] MEDS ORDERED: CATHETER FLUSH 10 ML SYR IV PRN (11:45)
[2021-02-27 11:58] LABS: ALANINE AMINOTRANSFERASE 17 U/L (0-55); ALBUMIN 4.1 GM/DL (3.2-4.5); ALKALINE PHOSPHATASE 94 U/L (40-136); BILIRUBIN,TOTAL 0.3 MG/DL (0.1-1.0); BUN/CREATININE RATIO 14; CALCIUM 9.8 MG/DL (8.5-10.1); CARBON DIOXIDE 24 MMOL/L (21-32); CHLORIDE 103 MMOL/L (98-107); CREATININE SERUM 0.71 MG/DL (0.60-1.30); GFR ESTIMATED 80; GLUCOSE 243 MG/DL (70-105); SODIUM 139 MMOL/L (135-145); TOTAL PROTEIN 7.8 GM/DL (6.4-8.2)
--- NOTE | 2021-02-27 11:59 | Diagnostic Imaging Report ---
INDICATION: Chest pain and dizziness and shortness of air. TIME OF EXAM: 11:43 AM Correlation is made with prior chest from 01/11/2021. FINDINGS: Changes of median sternotomy are noted. The left hemidiaphragm is chronically elevated with some resultant left basilar subsegmental atelectasis. Right lung is clear. There is no effusion or pneumothorax. IMPRESSION: Left basilar subsegmental atelectasis. Dictated by: Dictated on workstation # [id number]
--- NOTE | 2021-02-27 12:07 | Diagnostic Imaging Report ---
PROCEDURE: CT head wo r/o stroke. TECHNIQUE: Multiple contiguous axial images were obtained through the brain without the use of intravenous contrast. Auto Exposure Controls were utilized during the CT exam to meet ALARA standards for radiation dose reduction. INDICATION: Left arm weakness. Correlation is made with prior head CT from 08/26/2020. Encephalomalacia and left posterior frontal lobe as well as the left REGISTERED NURSE TEACHER territory is again noted and similar to prior exam. Old lacunar infarct right thalamus is again noted. No sulcal effacement is seen. There is no midline shift. No acute intra-axial or extra-axial hemorrhage is detected. Cisterns are patent. Visualized paranasal sinuses demonstrate mucosal thickening bilateral maxillary sinuses as well as ethmoid air cells and the sphenoid sinus. IMPRESSION: 1. Stable chronic intracranial findings when compared with exam from 08/26/2020. No acute intracranial process is detected. 2. Paranasal sinus disease. Dictated by: Dictated on workstation # [id number]
[2021-02-27 12:45] LABS: BILIRUBIN,URINE NEGATIVE (NEGATIVE); CLARITY,URINE CLEAR; COLOR,URINE YELLOW; GLUCOSE, URINE (UA) 2+ (NEGATIVE); KETONES,URINE NEGATIVE (NEGATIVE); LEUKOCYTE ESTERASE ,URINE TRACE (NEGATIVE); NITRITE,URINE NEGATIVE (NEGATIVE); PROTEIN,URINE NEGATIVE (NEGATIVE)
[2021-02-27 12:52] LABS: BACTERIA,URINE TRACE /HPF
--- NOTE | 2021-02-27 13:03 | Diagnostic Imaging Report ---
Clinical indication: Emergency Room non-activation. Left arm weakness. Evaluate for LVO. Exams: 1: Head CT with and without IV contrast. Auto Exposure Controls were utilized during the CT exam to meet ALARA standards for radiation dose reduction. 2: CT angiogram of the head and neck performed with 100 cc of Omnipaque 350 IV contrast. Sagittal and coronal MIP reformations were created for better visualization of vascular anatomy. CT angiogram was post-processed using RAPID LVO detection to include quantitative measurements of cerebral blood flow and automated results notification to the stroke and/or neurointerventional team. Comparison: Head CT without contrast dated 02/27/2021.. Findings: Head CT: There is stable appearance of the brain parenchyma with no abnormal IV contrast enhancement. Again seen moderate sized chronic cerebral infarct involving the left occipital lobe and medial posterior left temporal lobe region. Stable small chronic infarct involving the posterior lateral left frontal lobe/parietal lobe region. Brain parenchymal volume loss is seen. There are small areas of low-attenuation involving both cerebral hemispheres, likely from chronic infarct changes. There is no evidence of intraparenchymal hemorrhage, brain herniation midline shift. There is no hydrocephalus. The extracranial soft tissue, skull, and orbits are unremarkable. There is moderate amount of peripheral mucosal thickening involving right maxillary sinus. There is consolidation of the left sphenoid sinus region and mild ethmoid sinus mucosal thickening. There is a small mucus retention cyst involving left maxillary sinus. CT ANGIOGRAM: Three-vessel aortic arch is seen. There is mild stenosis of the origin of the right subclavian artery due to atherosclerotic disease. Otherwise bilateral subclavian arteries are patent. There is motion artifact which obscures portions of the proximal great vessels. There is significant motion artifact which may be related to swallowing which obscures the C3 on C4 vertebral body levels in the region of the bilateral carotid bifurcations. There is an endovascular stent within the distal right common carotid artery and proximal right cervical ICA which is patent. There is mild narrowing seen within the stent. There is tortuosity and mild narrowing with kinking of the mid to distal cervical right ICA. There is atherosclerotic disease of the left ICA bulb with motion artifact significantly obscuring the region and unable to evaluate this area. There is tortuosity and mild kinking of the mid cervical left ICA. The remainder of the cervical left ICA is patent. There is atherosclerotic disease involving the bilateral cavernous carotid arteries. There is mild to moderate stenosis involving the left ICA bulb. There is moderate stenosis involving the paraclinoid left ICA. There is mild narrowing involving the paraclinoid right ICA. The bilateral ECAs are patent as visualized. There is atherosclerotic disease involving the proximal cervical right vertebral with moderate stenosis extending from the proximal portion to the C7 level with slightly lens-shaped appearance. There is moderate to severe short segment stenosis involving the right cervical vertebral artery at the C6 level. The remainder of the cervical right vertebral artery is patent. There is mild to moderate stenosis involving the intradural right vertebral artery distally. There is occlusion of the cervical and left vertebral artery with some short segment areas of reconstitution proximally with continuous contrast seen within the cervical left vertebral artery at the C3 vertebral body level. There are areas of vascular irregularity and mild to moderate narrowing involving the distal cervical left vertebral artery. There is moderate stenosis involving the intradural cervical left vertebral artery proximally. The left PICA is patent. The post PICA left vertebral artery is patent. There is no significant stenosis of the basilar artery. There is short segment area of moderate to severe stenosis involving the left P2 RADIO REPAIRMAN region. Normal-appearing caliber left P1 RADIO REPAIRMAN is seen. There is contrast seen within the distal left P2 and P3 RADIO REPAIRMAN regions in the area of infarct. There is a small caliber absent right P1 RADIO REPAIRMAN. There is a right RADIO REPAIRMAN. The right RADIO REPAIRMAN and distal branches are patent. The ACAs and distal branches are patent. There is mild narrowing involving the proximal right M1 MCA. There is a small left M2 MCA branch which appears to be in the superior segment which extends into the anterior sylvian fissure region which has diminished contrast within it. This may be related to proximal stenosis or clot. The right MCA and distal branches are otherwise patent. The dural venous sinuses are patent. The jugular veins are patent as visualized. Multiple bilateral thyroid nodules are noted. The neck soft tissue structures show no other significant abnormality. Emphysematous disease of the visualized upper lungs are noted. There is cervical spine degenerative disease including grade 1 anterolisthesis of C4 on C5. IMPRESSION: 1: Stable CT scan of the brain with no evidence of interval acute intracranial hemorrhage or cerebral infarct. 2: Again seen chronic infarct involving the left occipital lobe, medial posterior left temporal lobe and posterior left frontal/parietal region laterally. MRI of the brain with and without contrast may help better evaluate for acute finding. 3: There is diminished contrast within a small caliber left M2 MCA vessel which appears to be in the superior segment and extends in the anterior left sylvian fissure region. This is of unknown age. Relation to patient's chronic cerebral infarct may be considered. 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 There are also areas of stenosis of the intradural left vertebral artery. 5: There is a short segment area of moderate to severe stenosis involving the cervical right vertebral artery at the C6 level and an area of moderate stenosis involving the proximal cervical right ICA to the C7 level which may also be related to vascular dissection of unknown age. The remainder of the cervical right vertebral artery is patent. 6: There is motion artifact which obscures the bilateral carotid artery bifurcations with the left side being uninterpretable. There is an endovascular stent involving the distal right common carotid artery extending to the proximal cervical right ICA which is patent. 7: There is a short segment area of moderate to severe stenosis involving the left P2 RADIO REPAIRMAN, of unknown age. This may be related to chronic cerebral infarct in the region. Results of this report was discussed with Rene Mejia APRN via the telephone on 02/27/2021 at 1245 hours. Dictated by: Dictated on workstation # [id number]
--- NOTE | 2021-02-27 14:14 | Diagnostic Imaging Report ---
Clinical indications: Patient with possible stroke, dysarthria, ataxia, left-sided weakness. Patient has history of old strokes. Exam: MRI of the brain performed without IV contrast. Sequences include axial DWI, ADC map, axial gradient echo, axial T2, axial FLAIR, and axial T1. Comparison: CT angiogram of head/neck dated 02/27/2021. Findings: There is a 3 mm focal area of elevated DWI signal with normalized ADC map signal involving the high posterior left frontal region near the region of the precentral gyrus. This may represent a focal area of subacute infarct. There are no other areas of infarct seen. There is no right cerebral hemisphere abnormality noted. There is no intracranial hemorrhage, brain herniation or midline shift. There is a small to moderate sized chronic cerebral infarct with cystic encephalomalacia involving the lateral left frontal/parietal region. There is a moderate-sized chronic cerebral infarct with cystic encephalomalacia involving the left occipital lobe and medial posterior left temporal lobe regions. There is high T1 signal involving the cortical region of the left occipital lobe and left temporal lobe chronic infarct regions likely related to laminar necrosis. There is no hemosiderin staining to suggest sequelae of parenchymal hemorrhage. There is no brain herniation or midline shift. There are other focal and patchy areas of high T2 signal white matter changes involving both cerebral hemispheres and periventricular regions, likely representing chronic small vessel ischemic disease and leukoaraiosis. Diffuse brain parenchymal volume loss is seen. The sellar and suprasellar regions are unremarkable. The extracranial soft tissues, skull, and orbits are unremarkable. There is moderate mucosal thickening involving right maxillary sinus with small air-fluid level. There is a small mucus retention cyst involving left maxillary sinus. There is moderate consolidation of fluid involving the left sphenoid sinus region. There is mild ethmoid sinus mucosal thickening. There is small amount of fluid involving right mastoid air cells. IMPRESSION: 1: There is a focal area of abnormal signal involving the high posterior left frontal lobe region which may represent an subacute infarct. 2: Otherwise is no MRI evidence of acute cerebral infarct, intracranial hemorrhage, brain herniation or midline shift. There is no hydrocephalus. 3: There is chronic cerebral infarct with cystic encephalomalacia involving the left occipital lobe/medial posterior left temporal lobe region and lateral left frontal/parietal lobe regions. 4: Age-related brain parenchymal changes including chronic small vessel ischemic disease and leukoaraiosis. 5: There is paranasal sinus disease. There is small amount of fluid in the right mastoid air cells. Dictated by: Dictated on workstation # [id number]
[2021-02-27] MEDS ORDERED: cefTRIAXone 1,000 MG in WATER (STERILE) FOR INJECTION 10 ML IV ONE (14:45)
--- NOTE | 2021-02-27 15:59 | History & Physical ---
WINSTON ORELLANA MED STUDENT 02/27/21 1559: History of Present Illness History of Present Illness Reason for visit/HPI Louise Nicolas is a 76 year old white female who presents via EMS from [facility] with complaints of stroke-like symptoms. Her speech therapist noticed around 0800 this am she was a bit lethargic, having trouble talking, and the patient is complaining of left face and left finger numbness/tingling. 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 Currently she denies headache, blurry vision, nausea, vomiting, fevers, chills, and weakness. She is reporting numbness and tingling of her left face and left fingertips. Denies dysuria, frequency, urgency, and hematuria. She reports old deficits of right eye vision loss, some degree of expressive aphasia at baseline, and right leg weakness after suffering a CVA one day after CABG in March of 2020. Date of Admission Feb 27, 2021 at 14:38 Date Seen by a Provider: Feb 27, 2021 Time Seen by a Provider: 15:00 I consulted on this patient on 02/27/21 15:54 Attending Physician Cassi Wagner DO Admitting Physician Cassi Wagner DO Consult Allergies and Home Medications Allergies Coded Allergies: No Known Drug Allergies (Unverified , 05/12/20) Home Medications Amlodipine Besylate 5 Mg Tablet, 10 MG PO DAILY Prescribed by: CASSI WAGNER on 06/02/201650 Last Action: Continued Aspirin 81 Mg Tab.chew, 81 MG PO DAILY Prescribed by: CASSI WAGNER on 06/02/201650 Atorvastatin Calcium 40 Mg Tablet, 40 MG PO DAILY Prescribed by: CASSI WAGNER on 06/02/201650 Last Action: Continued Budesonide 0.5 Mg/2 Ml Ampul.neb, 0.5 MG IH RTBID Prescribed by: CASSI WAGNER on 06/02/201650 Carvedilol 3.125 Mg Tablet, 3.125 MG PO BID Prescribed by: CASSI WAGNER on 06/02/201650 Last Action: Continued Cefuroxime Axetil 500 Mg Tablet, 500 MG PO BID . Prescribed by: ARLINE PRINCE on 01/11/21 1332 Cephalexin 500 Mg Tablet, 500 MG PO TID Prescribed by: ALBERTA SHAH on 08/26/20 1530 Clopidogrel Bisulfate 75 Mg Tablet, 75 MG PO DAILY Prescribed by: CASSI WAGNER on 06/02/201650 Famotidine 20 Mg Tablet, 20 MG PO DAILY Prescribed by: CASSI WAGNER on 06/02/201650 Last Action: Continued Ipratropium/Albuterol Sulfate 3 Ml Ampul.neb, 3 ML IH RTBID Prescribed by: CASSI WAGNER on 06/02/201650 Sennosides/Docusate Sodium 1 Each Tablet, 1 EA PO BID Prescribed by: CASSI WAGNER on 06/02/201650 Past Zogkuvu-Vtyvth-Tdrllq Hx Patient Social History Employed/Student: retired Tobacco Use?: No Smoking Status: Former Smoker (1.2-2ppd x 50 years) Smokeless Tobacco Frequency: Never a User Use of E-Cig and/or Vaping dev: No Use of E-Cig and/or Vaping Pepe: Never a User Substance use?: No Alcohol Use?: No Pt feels they are or have been: No Immunizations Up To Date Date of Influenza Vaccine: May 10, 2020 First/Initial COVID19 Vaccinat: 10/2020 Second COVID19 Vaccination Nickolas: 11/2020 Tetanus Booster (TDap): More Than 5 Years Seasonal Allergies Seasonal Allergies: No Current Status status: No status: No Advance Directives: No Communicates: Verbally Primary Language: Chilean Preferred Spoken Language: Chilean Is interpretation needed?: No Sensory deficits: 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 Heart Disease, Diabetes, Hypertension Review of Systems Constitutional: No chills, No diaphoresis, No dizziness, No malaise EENTM: vision loss (Blind R eye after prior CVA); No hearing loss, No blurred vision, No double vision Respiratory: No cough, No dyspnea on exertion, No hemoptysis, No short of breath Cardiovascular: No chest pain, No edema, No palpitations Gastrointestinal: No abdominal pain, No constipation, No diarrhea, No melena, No nausea, No vomiting Genitourinary: No decreased output, No discharge, No dysuria, No frequency, No hematuria, No incontinence : No Musculoskeletal: No back pain, No joint pain Skin: No change in color, No change in hair/nails, No lesions, No rash Psychiatric/Neurological: Denies Anxiety, Denies Depressed; Numbness (L face and left fingers), Pre-Existing Deficit (Residual weakness right lower extrem s/p old CVA) All Other Systems Reviewed Negative Unless Noted: Yes Physical Exam Vital Signs Vital Signs - First Documented 02/27/21 11:21 Temp 36.5 Pulse 68 Resp 17 B/P (MAP) 132/61 (84) O2 Delivery Room Air Capillary Refill : Less Than 3 Seconds Height, Weight, BMI Height: '" Weight: lbs. oz. kg; 26.00 BMI Method: General Appearance: No Apparent Distress, WD/WN Eyes: Bilateral Eye Normal Inspection, Bilateral Eye PERRL, Bilateral Eye EOMI HEENT: PERRL/EOMI, Pharynx Normal, Moist Mucous Membranes Neck: Full Range of Motion, Non Tender, Supple Respiratory: Chest Non Tender, Lungs Clear, Normal Breath Sounds, No Accessory Muscle Use Cardiovascular: Regular Rate, Rhythm, No Murmur, Normal Peripheral Pulses Gastrointestinal: Normal Bowel Sounds, Non Tender, Soft Rectal: Deferred Back: Normal Inspection, No CVA Tenderness, No Vertebral Tenderness Extremity: Normal Capillary Refill, Non Tender, No Calf Tenderness, No Pedal Edema Neurologic/Psychiatric: Alert, Oriented x3, Normal Mood/Affect, Other (4/5 flexion R hip strength) Skin: Normal Color, Warm/Dry Lymphatic: No Adenopathy Assessment/Plan Assessment and Plan Questionable subacute infarct involving posterior left frontal lobe Expressive aphasia Numbness/tingling left face and left fingertips UTI HTN HLP CAD TX COPD NIDDM Carotid artery stenosis with stent placement H/O 4 vessel CABG H/O CVA 1 day after CABG Rocephin for UTI Urine culture Continue plavix and ASA Lipitor Accuchecks achs, SSI Diabetic diet EKG showed NSR CT angio head and neck, stable CT w/o evidence of interval acute hemorrhage or infarct Brain MRI, focal area abnormal signal involving the high posterior L frontal lobe region, may be possible subacute infarct Neuro checks q4hrs x6 Fall precautions Admission Diagnosis Admission Status: Observation Reason for Inpatient Admission: Antibiotics UTI Neurologic monitoring Clinical Quality Measures Stroke: Date of last known well: Feb 27, 2021 Time of last known well: 08:15 CASSI WAGNER DO 02/28/21 0547: History of Present Illness History of Present Illness Reason for visit/HPI Chief complaint: Acute on chronic stroke symptoms History of present illness: This is a 76-year-old white female clinic patient of [facility] since recovered from CVA following bypass surgery and lengthy stay at inpatient rehab who had just moved to [facility] assisted living who was sent to ER due to suspicion of stroke. Apparently she was having speech therapy when they noticed left face drooping and dysarthria. Imaging was evaluated which showed very complicated cerebrovascular disease but NIH score was 3 so UTI was noted and will be treated with Rocephin and full evaluation will be completed. Allergies and Home Medications Allergies Coded Allergies: No Known Drug Allergies (Unverified , 05/12/20) Home Medications Amlodipine Besylate 5 Mg Tablet, 10 MG PO DAILY Prescribed by: CASSI WAGNER on 06/02/201650 Last Action: Continued Aspirin 81 Mg Tab.chew, 81 MG PO DAILY Prescribed by: CASSI WAGNER on 06/02/201650 Atorvastatin Calcium 40 Mg Tablet, 40 MG PO DAILY Prescribed by: CASSI WAGNER on 06/02/201650 Last Action: Continued Budesonide 0.5 Mg/2 Ml Ampul.neb, 0.5 MG IH RTBID Prescribed by: CASSI WAGNER on 06/02/201650 Carvedilol 3.125 Mg Tablet, 3.125 MG PO BID Prescribed by: CASSI WAGNER on 06/02/201650 Last Action: Continued Cefuroxime Axetil 500 Mg Tablet, 500 MG PO BID . Prescribed by: ARLINE PRINCE on 01/11/21 1332 Cephalexin 500 Mg Tablet, 500 MG PO TID Prescribed by: ALBERTA SHAH on 08/26/20 1530 Clopidogrel Bisulfate 75 Mg Tablet, 75 MG PO DAILY Prescribed by: CASSI WAGNER on 06/02/201650 Famotidine 20 Mg Tablet, 20 MG PO DAILY Prescribed by: CASSI WAGNER on 06/02/201650 Last Action: Continued Ipratropium/Albuterol Sulfate 3 Ml Ampul.neb, 3 ML IH RTBID Prescribed by: CASSI WAGNER on 06/02/201650 Sennosides/Docusate Sodium 1 Each Tablet, 1 EA PO BID Prescribed by: CASSI WAGNER on 06/02/201650 Patient Home Medication List Home Medication List Reviewed: Yes Past Eonpuyp-Enuwgr-Zmhhvx Hx Patient Social History Marrital Status: single Employed/Student: retired Smoking Status: Former Smoker (1.2-2ppd x 50 years) Smokeless Tobacco Frequency: Never a User Use of E-Cig and/or Vaping dev: No Use of E-Cig and/or Vaping Pepe: Never a User Pt feels they are or have been: No Past Medical History Surgeries: Cardiac, CABG, Coronary Stent, Vascular Surgery Aneurysm (R groin vessel s/p carotid artery stent placement), Cardiomyopathy, Coronary Artery Disease, Heart Attack, High Cholesterol, Hypertension Stroke Gastroesophageal Reflux Arthritis, Chronic Back Pain Diabetes, Non-Insulin dep Family Medical History Patient reports no known family medical history. Review of Systems Constitutional: no symptoms reported EENTM: vision loss (Blind R eye after prior CVA) Respiratory: no symptoms reported Cardiovascular: no symptoms reported Gastrointestinal: no symptoms reported Genitourinary: no symptoms reported Musculoskeletal: no symptoms reported Skin: no symptoms reported Psychiatric/Neurological: Numbness (L face and left fingers), Pre-Existing Deficit (Residual weakness right lower extrem s/p old CVA), Tingling, Weakness Physical Exam General Appearance: No Apparent Distress, WD/WN, Chronically ill Eyes: Bilateral Eye Normal Inspection, Bilateral Eye PERRL, Bilateral Eye EOMI HEENT: PERRL/EOMI, Normal ENT Inspection, Pharynx Normal Neck: Full Range of Motion, Normal Inspection, Non Tender, Supple, Carotid Bruit Respiratory: Chest Non Tender, Lungs Clear, Normal Breath Sounds, No Accessory Muscle Use, No Respiratory Distress Cardiovascular: Regular Rate, Rhythm, No Edema, No Gallop, No JVD, No Murmur, Normal Peripheral Pulses Gastrointestinal: Normal Bowel Sounds, No Organomegaly, No Pulsatile Mass, Non Tender, Soft Back: Normal Inspection, No CVA Tenderness, No Vertebral Tenderness Extremity: Normal Capillary Refill, Normal Inspection, Normal Range of Motion, Non Tender, No Calf Tenderness, No Pedal Edema Neurologic/Psychiatric: Alert, Oriented x3, Normal Mood/Affect, Motor Weakness (Subtle weakness), Other (4/5 flexion R hip strength) Skin: Normal Color, Warm/Dry Lymphatic: No Adenopathy Assessment/Plan Assessment and Plan Assessment: Acute on chronic stroke symptoms h/o CVA involving left occipital artery h/o 3 vessel CABG PVD Expressive aphasia Dysarthria Right sided weakness Diabetes mellitus COPD CAD Plan: Rocephin Home meds PT OT Inpatient rehab Problems: (1) Expressive aphasia (2) UTI (urinary tract infection) Status: Acute (3) Dysphagia Admission Diagnosis Admission Status: Observation Reason for Inpatient Admission: Stroke symptoms Supervisory-Addendum Brief Verification & Attestation Participated in pt care: history, MDM, physical Personally performed: exam, history, MDM, supervision of care Care discussed with: Medical Student Procedures: n/a Results interpretation: Verified all documentation Verification and Attestation of Medical Student E/M Service A medical student performed and documented this service in my presence. I reviewed and verified all information documented by the medical student and made modifications to such information, when appropriate. I personally performed the physical exam and medical decision making. Cassi Wagner, Feb 28, 2021,05:51 WINSTON ORELLANA MED STUDENT Feb 27, 2021 15:59 CASSI WAGNER DO Feb 28, 2021 05:47
--- NOTE | 2021-02-27 16:43 | Consultation-Cardiology ---
HPI-Cardiology Cardiology Consultation Date of Consultation 02/27/21 Date of Admission Time Seen by Provider: 16:40 Indication: Acute CVA HPI 76-year-old lady with history of CVA, coronary artery disease, hypertension hyperlipidemia, admitted through the emergency room for increasing lethargy, dysarthria, numbness and tingling in her left side of the face and left arm. Was admitted for observation, was starting to improve in the emergency room and currently she is back to her baseline. No chest pain. No palpitation. No syncope or near syncopal episodes Home Medications & Allergies Allergies: Coded Allergies: No Known Drug Allergies (Unverified , 05/12/20) Home Medication List Reviewed: Yes [facility]-Dauodd-Kkowgf Hx Patient Social History Marital Status: Employed/Student: retired Smoking Status: Former Smoker (1.2-2ppd x 50 years) Type Used: Cigarettes Recent Hopitalizations: No (CVA AND BYPASS SURGERY) Have you traveled recently?: No Alcohol Use?: No Immunizations Up To Date Tetanus Booster (TDap): Unknown Date of Influenza Vaccine: May 10, 2020 Past Medical History Discussed below Family Medical History Significant Family History: Heart Disease, Diabetes, Hypertension Family Medical Hx Noncontributory Family History: Patient reports no known family medical history. 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); No hearing loss, No blurred vision, No double vision Respiratory: no symptoms reported, see HPI; No cough, No dyspnea on exertion, No hemoptysis, No short of breath Cardiovascular: No chest pain, No edema, No palpitations Gastrointestinal: no symptoms reported, see HPI; No abdominal pain, No constipation, No diarrhea, No melena, No nausea, No vomiting Genitourinary: No decreased output, No discharge, No dysuria, No frequency, No hematuria, No incontinence : No Musculoskeletal: see HPI; No back pain, No joint pain Skin: see HPI; No change in color, No change in hair/nails, No lesions, No rash Psychiatric/Neurological: See HPI; Denies Anxiety, Denies Depressed; Numbness (L face and left fingers), Pre-Existing Deficit (Residual weakness right lower extrem s/p old CVA) All Other Systems Reviewed Negative Unless Noted: Yes Reviewed Test Results Reviewed Test Results Lab Laboratory Tests Test 02/27/21 11:15 02/27/21 12:27 02/27/21 16:13 Range/Units White Blood Count 8.3 4.3-11.0 10^3/uL Red Blood Count 4.75 3.80-5.11 10^6/uL Hemoglobin 13.0 11.5-16.0 g/dL Hematocrit 41 35-52 % Mean Corpuscular Volume 86 80-99 fL Mean Corpuscular Hemoglobin 27 25-34 pg Mean Corpuscular Hemoglobin Concent 32 32-36 g/dL Red Cell Distribution Width 19.6 H 10.0-14.5 % Platelet Count 403 H 130-400 10^3/uL Mean Platelet Volume 9.8 9.0-12.2 fL Immature Granulocyte % (Auto) 0 % Neutrophils (%) (Auto) 71 42-75 % Lymphocytes (%) (Auto) 21 12-44 % Monocytes (%) (Auto) 7 0-12 % Eosinophils (%) (Auto) 0 0-10 % Basophils (%) (Auto) 0 0-10 % Neutrophils # (Auto) 5.9 1.8-7.8 10^3/uL Lymphocytes # (Auto) 1.8 1.0-4.0 10^3/uL Monocytes # (Auto) 0.6 0.0-1.0 10^3/uL Eosinophils # (Auto) 0.0 0.0-0.3 10^3/uL Basophils # (Auto) 0.0 0.0-0.1 10^3/uL Immature Granulocyte # (Auto) 0.0 0.0-0.1 10^3/uL Sodium Level 139 135-145 MMOL/L Potassium Level 4.0 3.6-5.0 MMOL/L Chloride Level 103 98-107 MMOL/L Carbon Dioxide Level 24 21-32 MMOL/L Anion Gap 12 5-14 MMOL/L Blood Urea Nitrogen 10 7-18 MG/DL Creatinine 0.71 0.60-1.30 MG/DL Estimat Glomerular Filtration Rate 80 BUN/Creatinine Ratio 14 Glucose Level 243 H 70-105 MG/DL Calcium Level 9.8 8.5-10.1 MG/DL Corrected Calcium 9.7 8.5-10.1 MG/DL Total Bilirubin 0.3 0.1-1.0 MG/DL Aspartate Amino Transf (AST/SGOT) 14 5-34 U/L Alanine Aminotransferase (ALT/SGPT) 17 0-55 U/L Alkaline Phosphatase 94 40-136 U/L Troponin I < 0.028 <0.028 NG/ML Total Protein 7.8 6.4-8.2 GM/DL Albumin 4.1 3.2-4.5 GM/DL Urine Color YELLOW Urine Clarity CLEAR Urine pH 7.0 5-9 Urine Specific Tyler <=1.005 1.016-1.022 Urine Protein NEGATIVE NEGATIVE Urine Glucose (UA) 2+ H NEGATIVE Urine Ketones NEGATIVE NEGATIVE Urine Nitrite NEGATIVE NEGATIVE Urine Bilirubin NEGATIVE NEGATIVE Urine Urobilinogen 0.2 < = 1.0 MG/DL Urine Leukocyte Esterase TRACE H NEGATIVE Urine RBC (Auto) NEGATIVE NEGATIVE Urine RBC NONE /HPF Urine WBC 10-25 H /HPF Urine Squamous Epithelial Cells 5-10 /HPF Urine Crystals NONE /LPF Urine Bacteria TRACE /HPF Urine Casts NONE /LPF Urine Mucus NEGATIVE /LPF Urine Culture Indicated YES Physical Exam Physical Exam Vital Signs Vital Signs - First Documented 02/27/21 11:21 Temp 36.5 Pulse 68 Resp 17 B/P (MAP) 132/61 (84) O2 Delivery Room Air Capillary Refill : Less Than 3 Seconds Height, Weight, BMI Height: '" Weight: lbs. oz. kg; 26.00 BMI Method: General Appearance: No Apparent Distress, WD/WN Eyes: Bilateral Eye Normal Inspection, Bilateral Eye PERRL, Bilateral Eye EOMI HEENT: PERRL/EOMI, Pharynx Normal, Moist Mucous Membranes Neck: Full Range of Motion, Non Tender, Supple Respiratory: Chest Non Tender, Lungs Clear, Normal Breath Sounds, No Accessory Muscle Use Cardiovascular: Regular Rate, Rhythm, No Murmur, Normal Peripheral Pulses Gastrointestinal: Normal Bowel Sounds, Non Tender, Soft Rectal: Deferred Back: Normal Inspection, No CVA Tenderness, No Vertebral Tenderness Extremity: Normal Capillary Refill, Non Tender, No Calf Tenderness, No Pedal Edema Neurologic/Psychiatric: Alert, Oriented x3, Normal Mood/Affect, Other (4/5 flexion R hip strength) Skin: Normal Color, Warm/Dry Lymphatic: No Adenopathy A/P-Cardiology Admission Diagnosis TIA Coronary artery disease Hypertension Hyperlipidemia Assessment/Plan TIA, had dysarthria and numbness in her left side, returned to baseline and resolved, had history of CVA with some residual right hemiparesis. Still had on her baseline slight slurred speech and muscle strength is about 2-3 over 5 on the right side and 4/5 on the left side. She has been maintained on aspirin and Plavix which I recommend continuing. Coronary artery disease, history of CABG x3 done in 2020 at [facility], clinically stable at this time. Continue to monitor Hypertension, restart home medication monitor blood pressure Hyperlipidemia, monitor lipids History of peripheral arterial disease, had ischemic event after her bypass that improved with conservative management. Clinical Quality Measures Stroke: Date of last known well: Feb 27, 2021 Time of last known well: 08:15 LOU KASPER MD Feb 27, 2021 16:43
[2021-02-27 16:46] LABS: FIBRIN DEGRADATION PRODUCTS 0.57 UG/ML (0.00-0.49); PROTHROMBIN TIME PATIENT 13.3 SEC (12.2-14.7)
[2021-02-27] MEDS: LACTATED RINGERS 1,000 ML IV SCH (17:11)
[2021-02-27 19:40] VITALS: BP 157/66
[2021-02-28] VITALS: BP 157/78
[2021-02-28] MEDS: LACTATED RINGERS 1,000 ML IV SCH (02:05)
[2021-02-28 03:58] VITALS: BP 158/68
[2021-02-28 06:23] LABS: BASOPHILS % (AUTO) 0 % (0-10); EOSINOPHILS # (AUTO) 0.1 10^3/uL (0.0-0.3); EOSINOPHILS % (AUTO) 2 % (0-10); HEMATOCRIT 39 % (35-52); LYMPHOCYTES # (AUTO) 1.5 10^3/uL (1.0-4.0); LYMPHOCYTES % (AUTO) 26 % (12-44); MEAN CORPUSCULAR HEMOGLOBIN 27 pg (25-34); MEAN CORPUSCULAR HGB CONC 31 g/dL (32-36); MEAN CORPUSCULAR VOLUME 87 fL (80-99); MEAN PLATELET VOLUME 9.4 fL (9.0-12.2); MONOCYTES # (AUTO) 0.5 10^3/uL (0.0-1.0); MONOCYTES % (AUTO) 9 % (0-12); NEUTROPHILS # (AUTO) 3.6 10^3/uL (1.8-7.8); NEUTROPHILS % (AUTO) 63 % (42-75); PLATELET COUNT 319 10^3/uL (130-400); WHITE BLOOD COUNT 5.8 10^3/uL (4.3-11.0)
[2021-02-28 06:36] LABS: ALBUMIN 3.6 GM/DL (3.2-4.5); POTASSIUM 3.8 MMOL/L (3.6-5.0)
[2021-02-28 06:37] LABS: CALCIUM 9.1 MG/DL (8.5-10.1)
[2021-02-28 06:39] LABS: TOTAL PROTEIN 6.7 GM/DL (6.4-8.2)
[2021-02-28 06:40] LABS: BILIRUBIN,TOTAL 0.3 MG/DL (0.1-1.0)
[2021-02-28 06:42] LABS: CREATININE SERUM 0.64 MG/DL (0.60-1.30)
[2021-02-28 07:35] VITALS: BP 145/60
[2021-02-28] MEDS ORDERED: OLME1TAB18 PO (08:53)
[2021-02-28] MEDS ORDERED: SENN-109 PO (08:53)
[2021-02-28] MEDS ORDERED: AMLO-250 PO (08:53)
[2021-02-28] MEDS ORDERED: FAMO20TA5 PO (08:53)
[2021-02-28] MEDS ORDERED: ATOR40TA70 PO (08:53)
[2021-02-28] MEDS ORDERED: CARV3.122 PO (08:53)
[2021-02-28] MEDS ORDERED: CLOP75TA28 PO (08:53)
[2021-02-28] MEDS ORDERED: ASPI-1238 PO (08:53)
[2021-02-28] MEDS ORDERED: BUDE10.2 IH (08:53)
[2021-02-28] MEDS ORDERED: CLOPIDOGREL 75 MG (PLAVIX) TABLET PO SCH (09:00)
[2021-02-28] MEDS ORDERED: FAMOTIDINE 20 MG (PEPCID) TABLET PO SCH (09:00)
[2021-02-28] MEDS ORDERED: amLODIPine 5 MG (NORVASC) TAB PO SCH ×2 (09:00)
[2021-02-28] MEDS ORDERED: ASPIRIN 81 MG CHEW (CHILDREN'S ASA) PO SCH (09:00)
[2021-02-28] MEDS ORDERED: FLUO40CA PO (09:03)
[2021-02-28] MEDS ORDERED: CEFD300C3 PO (10:29)
--- NOTE | 2021-02-28 10:33 | Physical Therapy Evaluation ---
PT Evaluation-General Medical Diagnosis Admission Date Feb 27, 2021 at 14:38 Medical Diagnosis: UTI/CVA Onset Date: Feb 27, 2021 Therapy Diagnosis Therapy Diagnosis: debility/weakness Precautions Precautions/Isolations: Fall Prevention, Standard Precautions Referral Physician: Caroline Reason for Referral: Evaluation/Treatment Medical History Pertinent Medical History: CABG, CAD, COPD, CVA, DM, PVD Current History EMS secondary to increase slurred speech Reviewed History: Yes Social History Home: Assisted Living Prior Prior Level of Function SCALE: Activities may be completed with or without assistive devices. 8-Jumfuidczp-hgjwqdy completes the activity by him/herself with no assistance from a helper. 5-Set-up or Clean-up Assistance-helper sets up or cleans up; patient completes activity. [place] assists only prior to or following the activity. 4-Supervision or Touching Assistance-helper provides verbal cues and/or touching/steadying and/or contact guard assistance as patient completes activity. Assistance may be provided throughout the activity or intermittently. 3-Partial/Moderate Assistance-helper does LESS THAN HALF the effort. [place] lifts, holds or supports trunk or limbs, but provides less than half the effort. 2-Substantial/Maximal Assistance-helper does MORE THAN HALF the effort. [place] lifts or holds trunk or limbs and provides more than half the effort. 0-Alrrwzpxd-pieapd does ALL the effort. Patient does none of the effort to complete the activity. Or, the assistance of 2 or more helpers is required for the patient to complete the activity. If activity was not attempted, code reason: 7-Patient Refused. 9-Not Applicable-not attempted and the patient did not perform the activity before the current illness, exacerbation or injury. 10-Not Attempted due to Environmental Limitations-(lack of equipment, weather restraints, etc.). 88-Not Attempted due to Medical Conditions or Safety Concerns. Bed Mobility: 5 Transfers (B,C,W/C): 5 Gait: 5 Indoor Mobility (Ambulation): Independent Prior Devices Use: Walker PT Evaluation-Current Subjective Patient agrees to PT. She reports she is feeling better. Objective Patient Orientation: Normal For Age ROM/Strength ROM Lower Extremities bilateral LE WFL Strength Lower Extremities 4/5 grossly bilateral LE Integumentary/Posture Bowel Incontinence: No Bladder Incontinence: No Posture WFL Neuromuscular (Tone, Coordination, Reflexes) grossly intact Sensory Vision: Wears Glasses Hearing: Functional Transfers Lying to Sitting/Side of Bed(Q: 5 Sit to Stand (QC): 5 Chair/Bpj-kn-Aaleq Xfer(QC): 5 Gait Does the Patient Walk?: Yes Mode of Locomotion: Walk Anticipated Mode of Locomotion: Walk Walk 10 feet (QC): 4 Walk 50 ft with 2 Turns(QC): 4 Walk 150 ft (QC): 4 Distance: 250' Gait Assistive Device: FWW Comments/Gait Description safe and functional with no deviation Balance Sitting Static: Normal Sitting Dynamic: Normal Standing Static: Normal Standing Dynamic: Normal Assessment/Needs 76 y.o. female, will be seen short term by skilled PT to address functional mobility to ensure safe return to AL at maximum LOF. Rehab Potential: Fair PT Wine And Spirits Clerk Goals Wine And Spirits Clerk Goals PT Wine And Spirits Clerk Goals Time Frame: Mar 11, 2021 Roll Left & Right (QC): 5 Sit to Lying (QC): 5 Lying-Sitting on Side/Bed(QC): 5 Sit to Stand (QC): 5 Chair/Akd-rr-Tfwyl Xfer(QC): 5 Toilet Transfer (QC): 5 Does the Patient Walk: Yes Walk 10 feet (QC): 5 Walk 50ft with 2 Turns (QC): 5 Walk 150 ft (QC): 5 PT Plan Treatment/Plan Treatment Plan: Continue Plan of Care Treatment Plan: Education, Functional Activity Robbin, Functional Strength, Gait, Safety, Therapeutic Exercise, Transfers Treatment Duration: Mar 11, 2021 Frequency: 6 times per week Estimated Hrs Per Day: .25 hour per day Patient and/or Family Agrees t: Yes Time/GCodes Time In: 820 Time Out: 834 Total Billed Treatment Time: 14 Total Billed Treatment 1 visit EVMod 14 min SCOOBY MEJIA PT Feb 28, 2021 10:33
[2021-02-28 11:40] VITALS: BP 145/60
--- NOTE | 2021-02-28 11:55 | Occ Therapy Progress Note ---
Therapy Progress Note OT orders received, pt discharged prior to OT evaluation being complete. HOMER QUEZADA OT Feb 28, 2021 11:54
--- NOTE | 2021-02-28 12:54 | Cardiology Progress Note ---
Subjective Date Seen by Provider: Feb 28, 2021 Time Seen by Provider: 08:00 Subjective/Events-last exam Patient was seen at bedside, she was feeling better. No new complaint. No chest pain or shortness of breath. Review of Systems General: No Chills, No Night Sweats; Fatigue, Malaise; No Appetite, No Other HEENT: No Head Aches, No Visual Changes, No Eye Pain, No Ear Pain, No Dysphasia, No Sinus Congestion, No Post Nasal Drip, No Sore Throat, No Other Pulmonary: No Dyspnea, No Cough, No Pleuritic Chest Pain, No Other Cardiovascular: No: Chest Pain, Palpitations, Orthopnea, Paroxysmal Noc. Dyspnea, Edema, Lt Headedness, Other Objective-Cardiology Exam Last Set of Vital Signs Vital Signs 02/28/21 11:40 Temp 36.3 Pulse 69 Resp 18 B/P (MAP) 145/60 Pulse Ox 98 O2 Delivery Room Air I&O Intake and Output 02/28/21 00:00 Intake Total 110 ml Balance 110 ml Intake Oral 100 ml IV Total 10 ml # Voids 1 Daily Weight Change No General: Alert, Oriented X3, Cooperative HEENT: Atraumatic, PERRLA Neck: Supple, No JVD, No Thyromegaly Lungs: Clear to Auscultation, Normal Air Movement Heart: Regular Rate, Normal S1, Normal S2, No Murmurs Abdomen: Normal Bowel Sounds, Soft, No Tenderness, No Hepatosplenomegaly, No Masses Extremities: No Clubbing, No Cyanosis, No Edema, Normal Pulses, No Tenderness/Swelling Skin: No Rashes, No Breakdown, No Significant Lesion Neuro: Normal Gait, Normal Speech, Normal Tone, Sensation Intact Psych/Mental Status: Mental Status NL, Mood NL Results Lab Laboratory Tests 02/28/21 06:08 A/P-Cardiology Admission Diagnosis TIA Coronary artery disease Hypertension Hyperlipidemia Assessment/Plan TIA, had dysarthria and numbness in her left side, returned to baseline and resolved, had history of CVA with some residual right hemiparesis. Still had on her baseline slight slurred speech and muscle strength is about 2-3 / 5 on the right side and 4/5 on the left side. She has been maintained on aspirin and Plavix which I recommend continuing. Coronary artery disease, history of CABG x3 done in 2019 at [facility], clinically stable at this time. Continue to monitor Hypertension, restart home medication monitor blood pressure Hyperlipidemia, monitor lipids History of peripheral arterial disease, had ischemic event after her bypass that improved with conservative management. Patient reported full resolution of her symptoms, back to her baseline. Recommend conservative management. LOU KASPER MD Feb 28, 2021 12:54
--- NOTE | 2021-02-28 13:23 | Progress Note ---
ELSA HERNANDEZ 02/28/21 1323: Progress Note 76yo WF with PMH of HTN, CAD, HLD, NIDDM, SD, 4x CABG, and CVA of LAC in 2020 presents with complaints of stroke like symptoms affecting her left side with dysarthria, numbness, and tingling. Pt went to the ED after speech therapist noticed lethargy, trouble talking, and those left sided somatic complaints. C ardiology was consulted with recommendation to continue aspirin/Plavix. Short term PT consulted. 02/28, pt reported no complaints and denies any fever, vomiting, chest pain, or any urinary complaints. Pt discharged to assisted living with [facility] prior to complete OT evaluation and plans to have future appointment with Dr. Velazquez at her clinic. CASSI VELAZQUEZ DO 03/01/21 0612: Supervisory-Addendum Brief Verification & Attestation Participated in pt care: history, MDM, physical Personally performed: exam, history, MDM, supervision of care Care discussed with: Medical Student Procedures: n/a Results interpretation: Verified all documentation Verification and Attestation of Medical Student E/M Service A medical student performed and documented this service in my presence. I reviewed and verified all information documented by the medical student and made modifications to such information, when appropriate. I personally performed the physical exam and medical decision making. Cassi Velazquez Mar 01, 2021,06:12 ELSA HERNANDEZ Feb 28, 2021 13:23 CASSI VELAZQUEZ DO Mar 01, 2021 06:12
[2021-02-28] MEDS ORDERED: cefTRIAXone 1,000 MG/SWFI 10 ML IV PUSH IV SCH ×2 (15:00)
--- NOTE | 2021-03-09 09:29 | Physician Query-Final Dx ---
CASSI DÍAZ 03/09/21 0929: Final Diagnosis Give Final Diagnosis Please give Final Diagnosis BECKI WAGNER DO 03/09/21 1818: Final Diagnosis Give Final Diagnosis UTI with encephalopathy CASSI DÍAZ Mar 09, 2021 09:29 BECKI WAGNER DO Mar 09, 2021 18:18
== END 2021-02-28 11:40 | disposition home or self-care (01) ==
LOC: EDUNIT# 11:13 → ER 11:15 → 4TH 14:38
PROVIDERS: ADMIT Internal Medicine; ATTEND Internal Medicine
DX: N39.0 Urinary tract infection, site not specified (principal); G93.40 Encephalopathy, unspecified; I42.9 Cardiomyopathy, unspecified; I25.10 Atherosclerotic heart disease of native coronary artery without angina pectoris; I10 Essential (primary) hypertension; I25.2 Old myocardial infarction; I21.9 Acute myocardial infarction, unspecified; J44.9 Chronic obstructive pulmonary disease, unspecified; R47.01 Aphasia; R13.10 Dysphagia, unspecified; M19.90 Unspecified osteoarthritis, unspecified site; E78.00 Pure hypercholesterolemia, unspecified; E11.9 Type 2 diabetes mellitus without complications; E78.5 Hyperlipidemia, unspecified; Z79.82 Long term (current) use of aspirin; Z79.899 Other long term (current) drug therapy; Z95.0 Presence of cardiac pacemaker; Z86.73 Personal history of transient ischemic attack (TIA), and cerebral infarction without residual deficits; Z79.02 Long term (current) use of antithrombotics/antiplatelets; Z87.891 Personal history of nicotine dependence
CPT/HCPCS: 70450; 70496; 70498; 70551; 71045; 80053 ×2; 80061; 81000; 84484; 85025 ×2; 85379; 85610; 85730; 87088; 93005; 93041; 93306; 96374; 97162; 99284; G0378; 36415

== ENCOUNTER 2021-04-18 10:23 | Outpatient (RCR) | payer MEDICARE, MEDICAID ==
[~2021-04-18 10:23] MED LIST changes: +ASPI-1238 PO; +BUDE10.2 IH; +CEFD300C3 PO; +FLUO40CA PO; +OLME1TAB18 PO; +SENN-109 PO
[2021-04-28] MEDS ORDERED: CEFD300C3 PO (12:11)
== END 2021-05-01 | disposition home or self-care (01) ==
PROVIDERS: ATTEND Internal Medicine
DX: I69.351 Hemiplegia and hemiparesis following cerebral infarction affecting right dominant side (principal); R26.89 Other abnormalities of gait and mobility; I11.9 Hypertensive heart disease without heart failure; E11.9 Type 2 diabetes mellitus without complications

== ENCOUNTER 2021-04-25 16:07 | Inpatient (IN) | payer MEDICARE, MEDICAID ==
[~2021-04-25] VITALS: Ht 162.5 cm; Wt 59.3 kg
[2021-04-25 16:10] VITALS: BP 195/122
--- OUTSIDE RECORDS SUMMARY | 2021-04-25 16:11 | XMS REPORT | Clinical Summary ---
Author Author [facility] Address Unknown Phone Unavailable Care Team Providers Care Threading Machine Setter Name Role Phone Hansa Fuentes LINDSAY PP Allergies No known active allergies Medications End Date Status Medication Sig Dispensed Refills Start Date Active atorvastatin (LIPITOR) 40 Take 1 tablet 30 tablet 0 mg tablet (40 mg total) 0 by mouth every night. Active Problems Problem Noted Date DVT, lower extremity, distal, acute, right 0 Respiratory failure 04/13/2020 Hypotension 04/11/2020 Acute respiratory failure with hypoxia 04/11/2020 CVA (cerebral vascular accident) 04/11/2020 Acute blood loss anemia 04/03/2020 Leukocytosis 04/03/2020 Coronary artery disease involving [place] [facility] [place] [facility] 04/02/2020 with unstable angina pectoris NSTEMI (non-ST elevated myocardial infarction) 04/02 Acute on chronic HFrEF (heart failure with reduced ej ection fraction) 04/02/2020 Ischemic cardiomyopathy 04/02/2020 Tobacco abuse 04/02/2020 Social History Date Tobacco Use Types Packs/Day Years Used Current Some Day Smoker Cigarettes 0.5 Sex Assigned at Date Recorded Not on file Industry Job Start Date Occupation Not on file Not on file Not on file Last Filed Vital Signs Reading Time Taken Comments Vital Sign 134/58 04/24/2020 12:00 PM CDT Blood Pressure 88 04/24/2020 12:00 PM CDT Pulse 36 C (96.8 F) 04/24/2020 12:00 PM CDT Temperature 18 04/24/2020 12:00 PM CDT Respiratory Rate 100% 04/24/2020 12:00 PM CDT Oxygen Saturation - - Inhaled Oxygen Concentration 60.1 kg (132 lb 7.9 oz) 04/24/2020 4:00 AM CDT Weight 147.3 cm (4' 9.99") 04/08/2020 10:36 AM CDT Height 27.7 04/08/2020 10:36 AM CDT Body Mass Index Plan of Treatment Health Maintenance Due Date Last Done Comments CT Colonography 1946 Cologuard 1945 Colonoscopy 1946 Colorectal Cancer 1946 Screening Lipid Panel 1946 Medicare Wellness 1945 MMR Vaccines (1 of 1 - 1947 Standard series) Varicella Vaccines (1 of 1947 2 - 2-dose childhood series) Pneumococcal 65+ Yr (1 of 02/14/1952 2 - PPSV23) COVID-19 Vaccine (1) 1958 Depression Screening 1958 DTaP,Tdap,and Td Vaccines 1965 (1 - Tdap) FOBT/FIT 1991 Sigmoidoscopy 1991 Osteoporosis Screening 02/14/1996 Zoster Vaccines (1 of 2) 02/14/1996 Glaucoma Screening 65+ Yr 2011 Influenza Vaccine (#1) 2021 HIB Vaccines Aged Out No longer eligible based on patient's age to complete this topic HPV Vaccines Aged Out No longer eligible based on patient's age to complete this topic Hepatitis A Vaccines Aged Out No longer eligibl e based on patient's age to complete this topic Hepatitis B Vaccines Aged Out No longer eligibl e based on patient's age to complete this topic IPV Vaccines Aged Out No longer eligible based on patient's age to complete this topic Meningococcal Vaccine Aged Out No longer eligib le based on patient's age to complete this topic Implants Device Identifier Shelf Expiration Date Model / Serial / L ot Implanted Type Area Manufactur er 12/21/2021 [id number] / [id number] / Device Closure Cordis Mynxgrip Od5 Closure CAR DINAL Fr 10 Ml Vascular Balloon Catheter HEALTH Integrate Sealant Lock Syringe Atraumatic Tip Sterile Latex Free Disposable Acosta - [id number] - [id number] Implanted: Qty: 1 on 04/22/2020 by Aysha Lopez MD at [facility] Device Identifier Shelf Expiration Date Model / Serial / L ot Explanted Type Area Manufactur er 05/30/2024 [id number] / NA / [id number] Suture Nonabsorbable Temporary Wire N/A: Heart J and J Pacing Wire Stainless Steel 2-0 ETHICON Bb-1 Sks-3 L24 In 2 Arm Braid Dark Blue Light Blue - Sna - [id number] Explanted: Qty: 1 on 04/03/2020 at [facility] Results Not on filefrom Last 3 Months Insurance Type Payer Benefit Subscriber ID Effective Phone Address Plan / Dates Group MEDICARE MEDICARE [id number] 2011-P 2019 PART A AND resent [address] [place] [address] Advance Directives 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
[2021-04-25 16:31] LABS: BASOPHILS # (AUTO) 0.1 10^3/uL (0.0-0.1); BASOPHILS % (AUTO) 1 % (0-10); EOSINOPHILS # (AUTO) 0.1 10^3/uL (0.0-0.3); EOSINOPHILS % (AUTO) 2 % (0-10); HEMATOCRIT 42 % (35-52); HEMOGLOBIN 13.5 g/dL (11.5-16.0); LYMPHOCYTES # (AUTO) 2.6 10^3/uL (1.0-4.0); LYMPHOCYTES % (AUTO) 33 % (12-44); MEAN CORPUSCULAR HEMOGLOBIN 29 pg (25-34); MEAN CORPUSCULAR HGB CONC 32 g/dL (32-36); MEAN CORPUSCULAR VOLUME 90 fL (80-99); MEAN PLATELET VOLUME 9.8 fL (9.0-12.2); MONOCYTES # (AUTO) 0.8 10^3/uL (0.0-1.0); MONOCYTES % (AUTO) 10 % (0-12); NEUTROPHILS # (AUTO) 4.2 10^3/uL (1.8-7.8); NEUTROPHILS % (AUTO) 55 % (42-75); PLATELET COUNT 378 10^3/uL (130-400); WHITE BLOOD COUNT 7.8 10^3/uL (4.3-11.0)
[2021-04-25 16:36] LABS: ALBUMIN 4.3 GM/DL (3.2-4.5); CHLORIDE 101 MMOL/L (98-107); POTASSIUM 4.2 MMOL/L (3.6-5.0); SODIUM 136 MMOL/L (135-145)
[2021-04-25 16:38] LABS: CALCIUM 9.8 MG/DL (8.5-10.1)
--- NOTE | 2021-04-25 16:38 | Diagnostic Imaging Report ---
PROCEDURE: CT head wo r/o stroke. TECHNIQUE: Multiple contiguous axial images were obtained through the brain without the use of intravenous contrast. Auto Exposure Controls were utilized during the CT exam to meet ALARA standards for radiation dose reduction. INDICATION: Slurred speech and left arm weakness. COMPARISON: Comparison is made with a head CT from 02/27/2021. FINDINGS: Encephalomalacia in the left occipital lobe and left frontal lobe is again noted and similar to prior exam. There is an old lacunar infarct in the right thalamus. Sulci are unremarkable. No sulcal effacement is seen. There is no midline shift. No acute intra-axial or extra-axial hemorrhage is detected. Cisterns are patent. There is some mucosal thickening of the ethmoid air cells. Paranasal sinuses are otherwise clear. IMPRESSION: Stable chronic changes when compared with exam from 02/27/2021. No acute intracranial process is detected. Dictated by: Dictated on workstation # [id number]
[2021-04-25 16:39] LABS: GLUCOSE 103 MG/DL (70-105)
[2021-04-25 16:40] LABS: CARBON DIOXIDE 24 MMOL/L (21-32); FIBRIN DEGRADATION PRODUCTS 0.37 UG/ML (0.00-0.49); PROTHROMBIN TIME PATIENT 13.6 SEC (12.2-14.7)
[2021-04-25 16:41] LABS: BILIRUBIN,TOTAL 0.4 MG/DL (0.1-1.0)
[2021-04-25 16:42] LABS: ALKALINE PHOSPHATASE 91 U/L (40-136); CREATININE SERUM 0.74 MG/DL (0.60-1.30); GFR ESTIMATED 77
[2021-04-25 16:43] LABS: BUN/CREATININE RATIO 19
--- NOTE | 2021-04-25 16:44 | Diagnostic Imaging Report ---
Indication: Stroke Upright portable chest shows normal heart size and vascularity. The lungs are clear. There is no effusion or pneumothorax. There are changes of prior CABG. IMPRESSION: No acute abnormality is seen with no change from 02/27/2021. Dictated by: Dictated on workstation # [id number]
[2021-04-25 16:45] LABS: ALANINE AMINOTRANSFERASE 17 U/L (0-55)
[2021-04-25 17:03] LABS: BILIRUBIN,URINE NEGATIVE (NEGATIVE); CLARITY,URINE CLEAR; COLOR,URINE YELLOW; GLUCOSE, URINE (UA) NEGATIVE (NEGATIVE); KETONES,URINE NEGATIVE (NEGATIVE); LEUKOCYTE ESTERASE ,URINE TRACE (NEGATIVE); NITRITE,URINE NEGATIVE (NEGATIVE); PROTEIN,URINE NEGATIVE (NEGATIVE)
[2021-04-25 17:10] LABS: BACTERIA,URINE NEGATIVE /HPF; HYALINE CASTS, URINE RARE /LPF; SQUAMOUS EPITHELIAL CELL,UR RARE /HPF; WBC,URINE 0-2 /HPF
[2021-04-25] MEDS ORDERED: IOHEXOL 350 MG/ML 100 ML (OMNIPAQUE 350) VIAL IV ONE (17:45)
[2021-04-25] MEDS ORDERED: NS 100 ML (IVPB) BAG IV ONE (17:45)
[2021-04-25] MEDS ORDERED: HOLD METFORMIN - RECEIVED CONTRAST 20 ML VIAL IV SCH (17:45)
--- NOTE | 2021-04-25 18:03 | ED Neurological Problem ---
General Chief Complaint: Neuro-Stroke Like Symptoms Stated Complaint: L ARM NUMBNESS/DIFF SPEAKING Nursing Triage Note: C/O SLURRED SPEECH AND LEFT ARM WEAKNESS LAST KNOWN WELL TIME IS 1000AM TODAY. DAUGHTER AT BEDSIDE, ACTIVATION DONE AT THIS TIME. Source: patient Exam Limitations: no limitations History of Present Illness Date Seen by Provider: Apr 25, 2021 Time Seen by Provider: 16:05 Initial Comments This 76-year-old woman presents to the emergency room with complaints of difficulty speaking and left-sided numbness and weakness that started abruptly around 10:00 this morning. She denied any neurologic deficits when she went to bed or when she woke up this morning. She does have history of prior stroke. She takes aspirin and Plavix. She denies any other notable symptoms prior to her last known well time. Stroke activation was paged. Unfortunately, tenecteplase was not considered as she was beyond 4.5 hours from last known well time. Allergies and Home Medications Allergies Coded Allergies: No Known Drug Allergies (Unverified , 05/12/20) Patient Home Medication List Home Medication List Reviewed: Yes Amlodipine Besylate (Amlodipine Besylate) 5 Mg Tablet, 5 MG PO DAILY, (Reported) Entered as Reported by: DIANE PERES on 02/28/21852 Last Action: Reviewed Aspirin (Aspirin EC) 81 Mg Tablet.dr, 81 MG PO DAILY, (Reported) Entered as Reported by: DIANE PERES on 02/28/21852 Last Action: Reviewed Atorvastatin Calcium (Atorvastatin Calcium) 40 Mg Tablet, 40 MG PO DAILY, (Reported) Entered as Reported by: DIANE PERES on 02/28/21852 Last Action: Reviewed Budesonide/Formoterol Fumarate (Symbicort 160-4.5 Mcg Inhaler) 10.2 Gm Hfa.aer.ad, 2 PUFF IH BID, (Reported) Entered as Reported by: DIANE PERES on 02/28/21852 Last Action: Reviewed Carvedilol (Carvedilol) 3.125 Mg Tablet, 3.125 MG PO BID, (Reported) Entered as Reported by: DIANE PERES on 02/28/21852 Last Action: Reviewed Clopidogrel Bisulfate (Clopidogrel) 75 Mg Tablet, 75 MG PO DAILY, (Reported) Entered as Reported by: DIANE PERES on 02/28/21852 Last Action: Reviewed Famotidine (Famotidine) 20 Mg Tablet, 20 MG PO DAILY, (Reported) Entered as Reported by: DIANE PERES on 02/28/21852 Last Action: Reviewed Fluoxetine HCl (Fluoxetine HCl) 40 Mg Capsule, 40 MG PO HS, (Reported) Entered as Reported by: DIANE PERES on 02/28/21902 Last Action: Reviewed Olmesartan/Hydrochlorothiazide (Benicar Hct 20-12.5 mg Tablet) 1 Each Tablet, 1 EACH PO HS, (Reported) Entered as Reported by: DIANE PERES on 02/28/21852 Last Action: Reviewed Sennosides/Docusate Sodium (Senna-S Tablet) 1 Each Tablet, 1 EACH PO BID, (Reported) Entered as Reported by: DIANE PERES on 02/28/21852 Last Action: Reviewed Discontinued Medications Cefdinir (Cefdinir) 300 Mg Capsule, 300 MG PO BID Discontinued Reason: No Longer Taking Prescribed by: BECKI WAGNER on 02/28/21 102 Last Action: Discontinued Review of Systems Review of Systems Constitutional: no symptoms reported Eyes: No Symptoms Reported Ears, Nose, Mouth, Throat: no symptoms reported Respiratory: no symptoms reported Cardiovascular: no symptoms reported Genitourinary: no symptoms reported Musculoskeletal: no symptoms reported Skin: no symptoms reported Psychiatric/Neurological: See HPI Endocrine: No Symptoms Reported Hematologic/Lymphatic: No Symptoms Reported Past Likiiiz-Kszglr-Gezfoe Hx Patient Social History Tobacco Use?: No Use of E-Cig and/or Vaping dev: No Substance use?: No Alcohol Use?: No Pt feels they are or have been: No Immunizations Up To Date Tetanus Booster (TDap): Unknown First/Initial COVID19 Vaccinat: 2020 Second COVID19 Vaccination Nickolas: 2020 Third COVID19 Vaccination Date: 10/2020 COVID19 Vaccine 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: Yotomo Seasonal Allergies Seasonal Allergies: No Past Medical History Surgeries: Yes Cardiac, CABG, Coronary Stent, Vascular Surgery Respiratory: Yes COPD Currently Using CPAP: No Currently Using BIPAP: No Cardiac: Yes (STENTS, BYPASS ) Aneurysm, Cardiomyopathy, Coronary Artery Disease, Heart Attack, High Cholesterol, Hypertension Neurological: No Stroke : No Reproductive Disorders: No Sexually Transmitted Disease: No HIV/AIDS: No Genitourinary: No Gastrointestinal: Yes Gastroesophageal Reflux Musculoskeletal: Yes Arthritis, Chronic Back Pain Endocrine: Yes Diabetes, Non-Insulin dep HEENT: No Loss of Vision: Right Hearing Impairment: Denies Cancer: No Psychosocial: No Integumentary: No Blood Disorders: No Family Medical History Patient reports no known family medical history. Heart Disease, Diabetes, Hypertension Physical Exam Vital Signs Vital Signs - First Documented Capillary Refill : Less Than 3 Seconds Height, Weight, BMI Height: '" Weight: lbs. oz. kg; 22.00 BMI Method: General Appearance: WD/WN, mild distress HEENT: PERRL/EOMI, normal ENT inspection, pharynx normal Neck: normal inspection Respiratory: lungs clear, normal breath sounds, no respiratory distress Cardiovascular: regular rate, rhythm, no edema, no murmur Gastrointestinal: non tender, soft; No distended Extremities: normal inspection, no pedal edema Neurologic/Psychiatric: alert, normal mood/affect, oriented x 3 Crainal Nerves: PERRL, abnormal speech (Difficulty with word finding and articulation of speech), facial droop (Subtle left-sided facial droop) Coordination/Gait: normal finger to nose (Normal aegl-pi-rftc) Motor/Sensory: no motor deficit, no sensory deficit Skin: normal color, warm/dry Stroke Onset of Symptoms Date of Onset of Symptoms: Apr 25, 2021 Time of Symptom Onset: 10:00 Onset of Symptoms: Yes NIH Stroke Scale Assessment Level of Consciousness: 0=Alert (0), Level of Consciousness-Questions: 1=Answers one question (1), LOC Commands: 0=Performs both tasks (0), Gaze: Normal (0), Visual Orta: 0=No visual loss (0), Facial Movement (Facial Paresis): 1=Minor paralysis (1), Motor Function-Arms Right: 0=No drift (0), Motor Function-Arms Left: 0=No drift (0), Motor Function-Legs Right: 0=No drift (0), Motor Function-Legs Left: 0=No drift (0), Limb Ataxia: 0=Absent (0), Sensory: 0=Normal:no loss (0), Best Language: 1=Mild to moderat aphasia (1), Dysarthria: 1=Mild to moderate loss (1), Extinction & Inattention: 0=No abnormality (0), Total: 4 Stroke Thrombolytic Exclusion Age 18 or Over: Yes Acute intenal hemorrhage: No History of CVA: No Uncontrolled Coagulation Defec: No Intracranial Hemorrhage: No Severe Hypertension: No GI or Bleed: No Subarachnoid Hemorrhage: No Intracranial Neoplasm/Aneurysm: No Oral Anticoagulants: No Surgery or Trauma: No Puncture of Non-Compressible V: No Recent CPR: No Diabetic Hemorrhagic Retinopat: No Organ Biopsy: No Recent Obstetric Delivery: No Glucose: No Significant Hepatic Dysfunctio: No NIH Stoke Scale >22: No Bacterial Endocarditis: No Pericarditis: No Improving Symptoms: No Platelets: No TPA Contraindication: Yes IV - TPa Received IV - TPa Procedure Performed?: No Progress/Results/Core Measures Results/Orders Lab Results Laboratory Tests Test 04/25/21 16:14 04/25/21 16:33 Range/Units White Blood Count 7.8 4.3-11.0 10^3/uL Red Blood Count 4.70 3.80-5.11 10^6/uL Hemoglobin 13.5 11.5-16.0 g/dL Hematocrit 42 35-52 % Mean Corpuscular Volume 90 80-99 fL Mean Corpuscular Hemoglobin 29 25-34 pg Mean Corpuscular Hemoglobin Concent 32 32-36 g/dL Red Cell Distribution Width 14.6 H 10.0-14.5 % Platelet Count 378 130-400 10^3/uL Mean Platelet Volume 9.8 9.0-12.2 fL Immature Granulocyte % (Auto) 0 % Neutrophils (%) (Auto) 55 42-75 % Lymphocytes (%) (Auto) 33 12-44 % Monocytes (%) (Auto) 10 0-12 % Eosinophils (%) (Auto) 2 0-10 % Basophils (%) (Auto) 1 0-10 % Neutrophils # (Auto) 4.2 1.8-7.8 10^3/uL Lymphocytes # (Auto) 2.6 1.0-4.0 10^3/uL Monocytes # (Auto) 0.8 0.0-1.0 10^3/uL Eosinophils # (Auto) 0.1 0.0-0.3 10^3/uL Basophils # (Auto) 0.1 0.0-0.1 10^3/uL Immature Granulocyte # (Auto) 0.0 0.0-0.1 10^3/uL Prothrombin Time 13.6 12.2-14.7 SEC INR Comment 1.0 0.8-1.4 Activated Partial Thromboplast Time 38 H 24-35 SEC D-Dimer 0.37 0.00-0.49 UG/ML Sodium Level 136 135-145 MMOL/L Potassium Level 4.2 3.6-5.0 MMOL/L Chloride Level 101 98-107 MMOL/L Carbon Dioxide Level 24 21-32 MMOL/L Anion Gap 11 5-14 MMOL/L Blood Urea Nitrogen 14 7-18 MG/DL Creatinine 0.74 0.60-1.30 MG/DL Estimat Glomerular Filtration Rate 77 BUN/Creatinine Ratio 19 Glucose Level 103 70-105 MG/DL Glucometer 102 70-110 MG/DL Calcium Level 9.8 8.5-10.1 MG/DL Corrected Calcium 9.6 8.5-10.1 MG/DL Total Bilirubin 0.4 0.1-1.0 MG/DL Aspartate Amino Transf (AST/SGOT) 15 5-34 U/L Alanine Aminotransferase (ALT/SGPT) 17 0-55 U/L Alkaline Phosphatase 91 40-136 U/L Troponin I < 0.028 <0.028 NG/ML Total Protein 8.0 6.4-8.2 GM/DL Albumin 4.3 3.2-4.5 GM/DL Urine Color YELLOW Urine Clarity CLEAR Urine pH 6.0 5-9 Urine Specific [place] 1.020 1.016-1.022 Urine Protein NEGATIVE NEGATIVE Urine Glucose (UA) NEGATIVE NEGATIVE Urine Ketones NEGATIVE NEGATIVE Urine Nitrite NEGATIVE NEGATIVE Urine Bilirubin NEGATIVE NEGATIVE Urine Urobilinogen 0.2 < = 1.0 MG/DL Urine Leukocyte Esterase TRACE H NEGATIVE Urine RBC (Auto) NEGATIVE NEGATIVE Urine RBC NONE /HPF Urine WBC 0-2 /HPF Urine Squamous Epithelial Cells RARE /HPF Urine Crystals NONE /LPF Urine Bacteria NEGATIVE /HPF Urine Casts PRESENT /LPF Urine Hyaline Casts RARE /LPF Urine Mucus NEGATIVE /LPF Urine Culture Indicated NO My Orders Orders - ODETTE KEVIN MD Cbc With Automated Diff (04/25/21 16:22) Protime With Inr (04/25/21 16:22) Partial Thromboplastin Time (04/25/21 16:22) Comprehensive Metabolic Panel (04/25/21 16:22) Fibrin Degradation Products (04/25/21 16:22) Troponin I (04/25/21 16:22) Ua Culture If Indicated (04/25/21 16:22) Chest 1 View, Ap/Pa Only (04/25/21 16:22) Ekg Tracing (04/25/21 16:22) Accucheck Stat ONCE (04/25/21 16:22) Ed Iv/Invasive Line Start (04/25/21 16:22) Ed Iv/Invasive Line Start (04/25/21 16:22) Vital Signs Stroke Patient Q15M (04/25/21 16:22) Ct Head Wo-R/O Stroke (04/25/21 16:22) O2 (04/25/21 16:22) Monitor-Rhythm Ecg Trace Only (04/25/21 16:22) Lipid Panel (04/26/21 06:00) Ct Angio Head/Neck (04/25/21 16:52) Iohexol Injection (Omnipaque 350 Mg/Ml 1 (04/25/21 17:45) Received Contrast (Hold Metformin- Contr (04/25/21 17:45) Ns (Ivpb) (Sodium Chloride 0.9% Ivpb Bag (04/25/21 17:45) General/Regular (04/25/21 Dinner) Medications Given in ED Vital Signs/I&O 04/25/21 04/25/21 04/25/21 04/25/21 16:10 16:10 16:10 16:15 Temp 36.4 36.4 Pulse 68 68 68 69 Resp 20 20 20 B/P (MAP) 195/122 (146) 195/122 195/122 183/81 Pulse Ox 100 100 100 O2 Delivery Room Air 04/25/21 04/25/21 04/25/21 16:30 16:45 17:00 Pulse 63 60 66 B/P (MAP) 162/70 136/78 157/69 Blood Pressure Mean: 98 FSBG Bedside Testing Finger Stick Blood Glucose: 102 Progress Progress Note : Progress Note NIH stroke score was 4. Patient was not a TPA candidate due to greater than 4.5 hours from last known well time. CT head and CT angiogram head and neck revealed no acute problems to treat aggressively today. 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 There seems to be retrograde flow from a large right vertebral artery that is compensating. Case was discussed with Dr. Cristina, stroke neurologist at [facility]. She agrees with the decision to avoid thrombolytics and agrees that transfer to an interventional facility is not appropriate. She recommends admission with MRI and echocardiogram. Patient is agreeable to admission. We discussed CODE STATUS and she reports a DNR request. Patient reported improvement of the weakness in her left hand and arm which was not measurable by my exam. Speech was somewhat waxing and waning. She did have a mild chronic deficit in speech from prior stroke but this was much worse today. Patient's daughter was also at bedside and agreed with these decisions also. Initial ECG Impression Date: Apr 25, 2021 Initial ECG Impression Time: 16:16 Initial ECG Rate: 64 Initial ECG Rhythm: Normal Sinus Comment Sinus rhythm with no ST elevation or depression. LVH noted. No abnormal intervals. Diagnostic Imaging Diagonstic Imaging: Xray Plain Films/CT/US/NM/MRI: chest Comments Chest x-ray viewed by me and report reviewed. See report below NAME: JACINTO FAIRCHILD [facility] REC#: [id number] PT STATUS: REG ER : 1945 PHYSICIAN: ODETTE KEVIN MD ADMIT DATE: 04/25/21/ER Signed Date of Exam:04/25/21 CHEST 1 VIEW, AP/PA ONLY Indication: Stroke Upright portable chest shows normal heart size and vascularity. The lungs are clear. There is no effusion or pneumothorax. There are changes of prior CABG. IMPRESSION: No acute abnormality is seen with no change from 02/27/2021. Dictated by: Dictated on workstation # [id number] Dict: 04/25/21 1643 Trans: 04/25/211642 [id number] Interpreted by: ARMAND LOPEZ MD Electronically signed by: ARMAND LOPEZ MD 04/25/211642 Diagonstic Imaging: CT Plain Films/CT/US/NM/MRI: head Comments CT head viewed by me and report reviewed. See report below: NAME: JACINTO FAIRCHILD [facility] REC#: [id number] PT STATUS: REG ER : 1945 PHYSICIAN: ODETTE KEVIN MD ADMIT DATE: 04/25/21/ER Signed Date of Exam:04/25/21 CT HEAD WO-R/O STROKE PROCEDURE: CT head wo r/o stroke. TECHNIQUE: Multiple contiguous axial images were obtained through the brain without the use of intravenous contrast. Auto Exposure Controls were utilized during the CT exam to meet ALARA standards for radiation dose reduction. INDICATION: Slurred speech and left arm weakness. COMPARISON: Comparison is made with a head CT from 02/27/2021. FINDINGS: Encephalomalacia in the left occipital lobe and left frontal lobe is again noted and similar to prior exam. There is an old lacunar infarct in the right thalamus. Sulci are unremarkable. No sulcal effacement is seen. There is no midline shift. No acute intra-axial or extra-axial hemorrhage is detected. Cisterns are patent. There is some mucosal thickening of the ethmoid air cells. Paranasal sinuses are otherwise clear. IMPRESSION: Stable chronic changes when compared with exam from 02/27/2021. No acute intracranial process is detected. Dictated by: Dictated on workstation # [id number] Dict: 04/25/21 1633 Trans: 04/25/21 1730 [id number] Interpreted by: EARNESTINE BOOTH MD Electronically signed by: EARNESTINE BOOTH MD 04/25/21 1730 Diagonstic Imaging: CT Plain Films/CT/US/NM/MRI: other (CT angiogram head and neck viewed by me and report reviewed. See report below:) Comments NAME: JACINTO FAIRCHILD [facility] REC#: [id number] PT STATUS: REG ER : 1945 PHYSICIAN: ODETTE KEVIN MD ADMIT DATE: 04/25/21/ER Signed Date of Exam:04/25/21 CT ANGIO HEAD/NECK PROCEDURE: CT angiography of the head and CT angiography of the neck with and without contrast. TECHNIQUE: Contiguous noncontrast images were obtained from the skull base through the vertex. After intravenous contrast administration, helical CT angiography of the neck was performed. Source data was reformatted into 3D MIP projections. Delayed post contrast acquisition was also obtained. Auto Exposure Controls were utilized during the CT exam to meet ALARA standards for radiation dose reduction. INDICATION: Slurred speech. Left arm weakness. Comparison is made with a prior CT of the head performed earlier in the same day. There is mild atherosclerotic plaquing evident within the visualized portion of the arch. There is no significant stenosis at the origins of the great vessels arising from the arch. There is mild atherosclerotic narrowing of the right subclavian. The origin of the right vertebral artery is patent. The right vertebral artery appears to be dominant given the size of the transverse foramen. The origin of the left vertebral artery is occluded with only few short segment regions of the left vertebral artery within the neck demonstrating contrast opacification. There is flow within the intracranial left vertebral artery. The common carotid arteries within the neck demonstrate no high-grade stenosis. There is a stent at the right carotid bifurcation which may have some internal hyperplasia but does remain patent. There is less than 50% stenosis at the left bifurcation. There is no ICA dissection. The right vertebral artery throughout the neck is without evidence of dissection. There is some mild atherosclerotic plaquing within its proximal cervical aspect. Intracranially, there is moderate atherosclerotic disease within both of the carotid siphons. There is patent flow to the level of the carotid terminus bilaterally. There is flow within the M1 segment of both of the middle cerebral arteries. There is no definable M2 branch occlusion. The anterior cerebral arteries also appear patent. Within the posterior circulation, the dominant right vertebral artery demonstrates no significant stenosis. There is mild atherosclerotic plaquing. There is flow within the left vertebral artery which may be retrograde. Both of the posterior inferior cerebellar arteries appear patent. The basilar is small. This appears to be secondary to a origin of the right CHILD AND ADOLESCENT THERAPIST. The left CHILD AND ADOLESCENT THERAPIST demonstrates advanced atherosclerotic disease within the proximal P2 segment and diminutive flow distally that appears to be secondary to the patient's prior large left CHILD AND ADOLESCENT THERAPIST infarct. There are no findings of intracranial aneurysm formation. The dural venous sinuses are patent. There is no acute soft tissue abnormality evident within the neck. The lung apices are clear. Cervical spine demonstrates multilevel degenerative disc disease and facet arthropathy with a anterolisthesis of C4 on C5. There is no acute osseous abnormality. There is high-grade bilateral foraminal stenosis at the C4-C5 and C5-C6 levels. IMPRESSION: 1. Intracranially, there is intracranial atherosclerotic disease but no findings of a large vessel occlusion or intraluminal thrombosis. There is diminutive flow within the left CHILD AND ADOLESCENT THERAPIST related to the patient's remote left CHILD AND ADOLESCENT THERAPIST territory infarct. 2. Flow within the intracranial left vertebral artery may be retrograde as there is occlusion of the proximal aspect of the left vertebral artery within the neck. 3. No findings of intracranial aneurysm formation. 4. The dural venous sinuses are patent. 5. No pathologic intracranial enhancement 6. Previous right carotid stenting. The stent remains patent. There is less than 50% stenosis of the left bifurcation. The right vertebral artery within the neck widely patent. 7. Cervical degenerative disc disease and facet arthropathy. Dictated by: Dictated on workstation # [id number] Dict: 04/25/211802 Trans: 04/25/211816 [facility] [id number] Interpreted by: TRINITY MANDEL MD Electronically signed by: TRINITY MANDEL MD 04/25/211816 CT Read Date: Apr 25, 2021 CT Read Time: 16:50 CT Results/Progress Notes No acute changes Departure Impression Primary Impression: Dysarthria Additional Impression: Dysphasia Disposition: ADMITTED INPATIENT Condition: Improved Admissions Decision to Admit Reason: Admit from ER (General) Decision to Admit/Date: Apr 25, 2021 Time/Decision to Admit Time: 16:20 Departure-Patient Inst. Referrals: BECKI WAGNER DO (PCP/Family) Primary Care Physician ODETTE KEVIN MD Apr 25, 2021 18:03
--- NOTE | 2021-04-25 18:17 | Diagnostic Imaging Report ---
PROCEDURE: CT angiography of the head and CT angiography of the neck with and without contrast. TECHNIQUE: Contiguous noncontrast images were obtained from the skull base through the vertex. After intravenous contrast administration, helical CT angiography of the neck was performed. Source data was reformatted into 3D MIP projections. Delayed post contrast acquisition was also obtained. Auto Exposure Controls were utilized during the CT exam to meet ALARA standards for radiation dose reduction. INDICATION: Slurred speech. Left arm weakness. Comparison is made with a prior CT of the head performed earlier in the same day. There is mild atherosclerotic plaquing evident within the visualized portion of the arch. There is no significant stenosis at the origins of the great vessels arising from the arch. There is mild atherosclerotic narrowing of the right subclavian. The origin of the right vertebral artery is patent. The right vertebral artery appears to be dominant given the size of the transverse foramen. The origin of the left vertebral artery is occluded with only few short segment regions of the left vertebral artery within the neck demonstrating contrast opacification. There is flow within the intracranial left vertebral artery. The common carotid arteries within the neck demonstrate no high-grade stenosis. There is a stent at the right carotid bifurcation which may have some internal hyperplasia but does remain patent. There is less than 50% stenosis at the left bifurcation. There is no ICA dissection. The right vertebral artery throughout the neck is without evidence of dissection. There is some mild atherosclerotic plaquing within its proximal cervical aspect. Intracranially, there is moderate atherosclerotic disease within both of the carotid siphons. There is patent flow to the level of the carotid terminus bilaterally. There is flow within the M1 segment of both of the middle cerebral arteries. There is no definable M2 branch occlusion. The anterior cerebral arteries also appear patent. Within the posterior circulation, the dominant right vertebral artery demonstrates no significant stenosis. There is mild atherosclerotic plaquing. There is flow within the left vertebral artery which may be retrograde. Both of the posterior inferior cerebellar arteries appear patent. The basilar is small. This appears to be secondary to a origin of the right SLEEVE TAILOR. The left SLEEVE TAILOR demonstrates advanced atherosclerotic disease within the proximal P2 segment and diminutive flow distally that appears to be secondary to the patient's prior large left SLEEVE TAILOR infarct. There are no findings of intracranial aneurysm formation. The dural venous sinuses are patent. There is no acute soft tissue abnormality evident within the neck. The lung apices are clear. Cervical spine demonstrates multilevel degenerative disc disease and facet arthropathy with a anterolisthesis of C4 on C5. There is no acute osseous abnormality. There is high-grade bilateral foraminal stenosis at the C4-C5 and C5-C6 levels. IMPRESSION: 1. Intracranially, there is intracranial atherosclerotic disease but no findings of a large vessel occlusion or intraluminal thrombosis. There is diminutive flow within the left SLEEVE TAILOR related to the patient's remote left SLEEVE TAILOR territory infarct. 2. Flow within the intracranial left vertebral artery may be retrograde as there is occlusion of the proximal aspect of the left vertebral artery within the neck. 3. No findings of intracranial aneurysm formation. 4. The dural venous sinuses are patent. 5. No pathologic intracranial enhancement 6. Previous right carotid stenting. The stent remains patent. There is less than 50% stenosis of the left bifurcation. The right vertebral artery within the neck widely patent. 7. Cervical degenerative disc disease and facet arthropathy. Dictated by: Dictated on workstation # [id number]
[2021-04-25 20:00] VITALS: BP 141/77
[2021-04-25] MEDS: FLUoxetine HCL 20 MG (PROzac) CAP PO SCH (20:28)
[2021-04-25] MEDS ORDERED: lisINopril 20 MG (PRINIVIL) TABLET PO SCH (21:00)
[2021-04-26] VITALS (8 sets, daily range): BP systolic 133–156; BP diastolic 64–86
[2021-04-26 05:42] LABS: BASOPHILS % (AUTO) 1 % (0-10); EOSINOPHILS # (AUTO) 0.1 10^3/uL (0.0-0.3); EOSINOPHILS % (AUTO) 1 % (0-10); HEMATOCRIT 40 % (35-52); HEMOGLOBIN 12.9 g/dL (11.5-16.0); LYMPHOCYTES # (AUTO) 1.9 10^3/uL (1.0-4.0); LYMPHOCYTES % (AUTO) 30 % (12-44); MEAN CORPUSCULAR HEMOGLOBIN 29 pg (25-34); MEAN CORPUSCULAR HGB CONC 32 g/dL (32-36); MEAN CORPUSCULAR VOLUME 89 fL (80-99); MEAN PLATELET VOLUME 9.8 fL (9.0-12.2); MONOCYTES # (AUTO) 0.6 10^3/uL (0.0-1.0); MONOCYTES % (AUTO) 10 % (0-12); NEUTROPHILS # (AUTO) 3.7 10^3/uL (1.8-7.8); NEUTROPHILS % (AUTO) 58 % (42-75); PLATELET COUNT 302 10^3/uL (130-400); WHITE BLOOD COUNT 6.3 10^3/uL (4.3-11.0)
[2021-04-26 05:52] LABS: ALBUMIN 3.7 GM/DL (3.2-4.5); POTASSIUM 3.8 MMOL/L (3.6-5.0)
[2021-04-26 05:53] LABS: CALCIUM 9.2 MG/DL (8.5-10.1)
[2021-04-26 05:54] LABS: TOTAL PROTEIN 6.8 GM/DL (6.4-8.2)
[2021-04-26 05:56] LABS: BILIRUBIN,TOTAL 0.4 MG/DL (0.1-1.0)
[2021-04-26 05:58] LABS: CREATININE SERUM 0.63 MG/DL (0.60-1.30)
[2021-04-26] MEDS: DOCUSATE SODIUM 100 MG (COLACE) CAP PO SCH (09:05)
[2021-04-26] MEDS: ASPIRIN E.C. 325 MG (ECOTRIN) TABLET PO SCH (09:05)
[2021-04-26] MEDS: CLOPIDOGREL 75 MG (PLAVIX) TABLET PO SCH (09:05)
--- NOTE | 2021-04-26 09:13 | Physical Therapy Evaluation ---
PT Evaluation-General Medical Diagnosis Admission Date Apr 25, 2021 at 19:01 Medical Diagnosis: CVA Onset Date: Apr 25, 2021 Therapy Diagnosis Therapy Diagnosis: impaired mobility, strength, endurance, balance Precautions Precautions/Isolations: Fall Prevention, Standard Precautions Referral Physician: Cassi Velazquez DO Reason for Referral: Evaluation/Treatment Medical History Pertinent Medical History: CABG, CAD, COPD, CVA, DM, PVD Additional Medical History Past Medical History Surgeries: Yes Cardiac, CABG, Coronary Stent, Vascular Surgery Respiratory: Yes COPD Currently Using CPAP: No Currently Using BIPAP: No Cardiac: Yes (STENTS, BYPASS ) Aneurysm, Cardiomyopathy, Coronary Artery Disease, Heart Attack, High Cholesterol, Hypertension Neurological: No Stroke : No Reproductive Disorders: No Sexually Transmitted Disease: No HIV/AIDS: No Genitourinary: No Gastrointestinal: Yes Gastroesophageal Reflux Musculoskeletal: Yes Arthritis, Chronic Back Pain Endocrine: Yes Diabetes, Non-Insulin dep Reviewed History: Yes Social History Home: Apartment ([place]) Current Living Status: Alone Entry Into Home: Level Entry Prior Prior Level of Function SCALE: Activities may be completed with or without assistive devices. 3-Lzqbukiize-apqfzvl completes the activity by him/herself with no assistance from a helper. 5-Set-up or Clean-up Assistance-helper sets up or cleans up; patient completes activity. [place] assists only prior to or following the activity. 4-Supervision or Touching Assistance-helper provides verbal cues and/or touching/steadying and/or contact guard assistance as patient completes activity. Assistance may be provided throughout the activity or intermittently. 3-Partial/Moderate Assistance-helper does LESS THAN HALF the effort. [place] lifts, holds or supports trunk or limbs, but provides less than half the effort. 2-Substantial/Maximal Assistance-helper does MORE THAN HALF the effort. [place] lifts or holds trunk or limbs and provides more than half the effort. 1-Conlrhgid-tyxswq does ALL the effort. Patient does none of the effort to complete the activity. Or, the assistance of 2 or more helpers is required for the patient to complete the activity. If activity was not attempted, code reason: 7-Patient Refused. 9-Not Applicable-not attempted and the patient did not perform the activity befo re the current illness, exacerbation or injury. 10-Not Attempted due to Environmental Limitations-(lack of equipment, weather re straints, etc.). 88-Not Attempted due to Medical Conditions or Safety Concerns. Bed Mobility: 6 Transfers (B,C,W/C): 6 Gait: 6 Indoor Mobility (Ambulation): Independent Prior Devices Use: Walker PT Evaluation-Current Subjective Patient in bed pre tx, agrees to PT, has no complaints of pain. Pt/Family Goals to be able to go back home Objective Patient Orientation: Person, Place, Situation ROM/Strength ROM Lower Extremities WNL Strength Lower Extremities LLE (hip flexion 3+/5, knee flexion 4+/5, knee extension 4+/5, dorsiflexion 4+/5), RLE (hip flexion 3+/5, knee flexion 4+/5, knee extension 4+/5, dorsiflexion 4+/5) Neuromuscular (Tone, Coordination, Reflexes) impaired peripheral vision on the right side Sensory Vision: Wears Glasses Hearing: Functional Sensation Right Lower Extremit: Intact Sensation Left Lower Extremity: Intact Transfers Roll Left to Right (QC): 6 Sit to Lying (QC): 4 Lying to Sitting/Side of Bed(Q: 4 Sit to Stand (QC): 3 Gait Does the Patient Walk?: Yes Mode of Locomotion: Walk Anticipated Mode of Locomotion: Walk Walk 10 feet (QC): 4 Distance: 30' Gait Assistive Device: Handheld Assist Comments/Gait Description Patient was able to maintain balance but very unsteady, would benefit from the use of a walker next time, short choppy steps Balance Sitting Static: Normal Sitting Dynamic: Normal Standing Static: Poor Standing Dynamic: Poor Treatment supine bilateral LE ex x20 (AP, HS) Assessment/Needs Patient has impaired mobility, strength, endurance, balance. Patient in bed post tx with nurse call, phone, tray, all needs met. Patient is very unsteady with ambulation, needs assist. Rehab Potential: Fair PT Choke Setter Goals Snf Goals PT Choke Setter Goals Time Frame: May 03, 2021 Roll Left & Right (QC): 6 Sit to Lying (QC): 6 Lying-Sitting on Side/Bed(QC): 6 Sit to Stand (QC): 4 Chair/Mcl-vc-Hryfl Xfer(QC): 4 Walk 10 feet (QC): 4 Walk 50ft with 2 Turns (QC): 4 Walk 150 ft (QC): 4 PT Plan Problem List Problem List: Activity Tolerance, Functional Strength, Safety, Balance, Gait, Transfer, Bed Mobility, ROM Treatment/Plan Treatment Plan: Continue Plan of Care Treatment Plan: Bed Mobility, Education, Functional Activity Robbin, Functional Strength, Gait, Safety, Therapeutic Exercise, Transfers Treatment Duration: May 03, 2021 Frequency: 6 times per week Estimated Hrs Per Day: .25 hour per day Patient and/or Family Agrees t: Yes Safety Risks/Education Patient Education: Gait Training, Transfer Techniques, Correct Positioning, Safety Issues Teaching Recipient: Patient Teaching Methods: Demonstration, Discussion Response to Teaching: Reinforcement Needed Discharge Recommendations Plan Patient will perform bed mobility and transfer training, balance and endurance training, functional strengthening, gait training, and education to improve functional mobility and independence at home. Therapy Discharge Recommendati: Scheduled Assistance, Assisted Living, Post Acute PT Time/GCodes Time In: 821 Time Out: 835 Total Billed Treatment Time: 14 Total Billed Treatment 1 visit SHREYA PHILLIPS PT Apr 26, 2021 09:13
--- NOTE | 2021-04-26 11:44 | Diagnostic Imaging Report ---
CLINICAL INDICATION: Possible stroke. 24 hour TPA. EXAM: MRI of the brain performed without IV contrast. Sequences include axial DWI, ADC map, coronal gradient echo, axial T2, axial FLAIR, axial T1, and sagittal T1. COMPARISON: CT angiogram of the head/neck dated 04/25/2021. FINDINGS: There is a 4 mm punctate area of diffusion restriction involving the high posterior left frontal lobe region. There is no other area of acute cerebral infarct. 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 There is a small area of chronic cerebral infarct involving the lateral left frontal lobe and insular region. There are multiple focal areas of high T2 signal white matter changes involving both cerebral hemispheres and periventricular regions. There is no hydrocephalus, brain herniation, or midline shift. There is no intracranial hemorrhage. The basal cisterns are unremarkable. The [place] vascular structures show no gross abnormality as visualized. The pituitary gland, sella, and suprasellar regions are unremarkable as visualized. There is mild mucosal thickening involving the ethmoid sinus. There is a small mucus retention cyst involving the left maxillary sinus. There is a small amount of fluid involving the right mastoid air cells. IMPRESSION: 1: There is a punctate area of diffusion restriction involving the high posterior left frontal lobe region, likely representing a focal area of acute/subacute infarct. 2: Otherwise, there is no other acute intracranial process. There is no intra-cranial hemorrhage, brain herniation, or midline shift. 3: There is a chronic infarct involving the left medial temporal/left occipital lobe region and lateral left frontal lobe region. Dictated by: Dictated on workstation # [id number]
--- NOTE | 2021-04-26 12:51 | History & Physical ---
ELIZABETHHAI MED STUDENT 04/26/21 1251: History of Present Illness History of Present Illness Reason for visit/HPI CC: Stroke-like symptoms HPI: Pt presented to ER yesterday afternoon with complaints of L side numbness/weakness and difficulty speaking. She is unable to recall the events yesterday. Per ER, stroke protocol was activated but she was past the window for tPA therapy. 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 She has residual deficits including slight R facial droop, dysarthria, expressive aphasia. She feels well this morning with no complaints of chest pain, SOB, N/V, abd pain, numbness/tingling, motor weakness, sensory loss. She is alert, oriented to self, disoriented to place/time. Date of Admission Apr 25, 2021 at 19:01 Date Seen by a Provider: Apr 26, 2021 Time Seen by a Provider: 08:00 I consulted on this patient on 04/26/21 12:48 Attending Physician Cassi Wagner DO Admitting Physician Cassi Wagner DO Consult Allergies and Home Medications Allergies Coded Allergies: No Known Drug Allergies (Unverified , 05/12/20) Patient Home Medication List Home Medication List Reviewed: Yes Amlodipine Besylate (Amlodipine Besylate) 5 Mg Tablet, 5 MG PO DAILY, (Reported) Entered as Reported by: DIANE PERES on 02/28/21852 Last Action: Reviewed Aspirin (Aspirin EC) 81 Mg Tablet.dr, 81 MG PO DAILY, (Reported) Entered as Reported by: DIANE PERES on 02/28/21852 Last Action: Reviewed Atorvastatin Calcium (Atorvastatin Calcium) 40 Mg Tablet, 40 MG PO DAILY, (Reported) Entered as Reported by: DIANE PERES on 02/28/21852 Last Action: Reviewed Budesonide/Formoterol Fumarate (Symbicort 160-4.5 Mcg Inhaler) 10.2 Gm Hfa.aer.ad, 2 PUFF IH BID, (Reported) Entered as Reported by: DIANE PERES on 02/28/21852 Last Action: Reviewed Carvedilol (Carvedilol) 3.125 Mg Tablet, 3.125 MG PO BID, (Reported) Entered as Reported by: DIANE PERES on 02/28/21852 Last Action: Reviewed Clopidogrel Bisulfate (Clopidogrel) 75 Mg Tablet, 75 MG PO DAILY, (Reported) Entered as Reported by: DIANE PERES on 02/28/21852 Last Action: Reviewed Famotidine (Famotidine) 20 Mg Tablet, 20 MG PO DAILY, (Reported) Entered as Reported by: DIANE PERES on 02/28/21852 Last Action: Reviewed Fluoxetine HCl (Fluoxetine HCl) 40 Mg Capsule, 40 MG PO HS, (Reported) Entered as Reported by: DIANE PERES on 02/28/21902 Last Action: Reviewed Olmesartan/Hydrochlorothiazide (Benicar Hct 20-12.5 mg Tablet) 1 Each Tablet, 1 EACH PO HS, (Reported) Entered as Reported by: DIANE PERES on 02/28/21852 Last Action: Reviewed Sennosides/Docusate Sodium (Senna-S Tablet) 1 Each Tablet, 1 EACH PO BID, (Reported) Entered as Reported by: DIANE PERES on 02/28/21852 Last Action: Reviewed Discontinued Medications Cefdinir (Cefdinir) 300 Mg Capsule, 300 MG PO BID Discontinued Reason: No Longer Taking Prescribed by: CASSI WAGNER on 02/28/211028 Last Action: Discontinued Past Bikctgm-Sdarrs-Jeakko Hx Patient Social History Tobacco Use?: No Smoking Status: Former Smoker Smokeless Tobacco Frequency: Never a User Use of E-Cig and/or Vaping dev: No Substance use?: No Alcohol Use?: No Pt feels they are or have been: No Immunizations Up To Date Date of Influenza Vaccine: May 10, 2020 First/Initial COVID19 Vaccinat: 2020 Second COVID19 Vaccination Nickolas: 2020 Tetanus Booster (TDap): Unknown Seasonal Allergies Seasonal Allergies: No Current Status status: No Advance Directives: No Advance Directive Location: DAUGHTER IS POA Communicates: Verbally Primary Language: German Preferred Spoken Language: German Is interpretation needed?: No Sensory deficits: Vision impairment Implanted or Applied Medical D: Stents Past Medical History Surgeries: Cardiac, CABG, Coronary Stent, Vascular Surgery COPD Currently Using CPAP: No Currently Using BIPAP: No Aneurysm, Cardiomyopathy, Coronary Artery Disease, Heart Attack, High Cholesterol, Hypertension Stroke Sexually Transmitted Disease: No HIV/AIDS: No Gastroesophageal Reflux Arthritis, Chronic Back Pain Diabetes, Non-Insulin dep Loss of Vision: Right Hearing Impairment: Denies Blood Disorders: No Family Medical History Patient reports no known family medical history. Heart Disease, Diabetes, Hypertension Review of Systems Constitutional: No chills, No dizziness, No fever, No weakness EENTM: vision loss; No hearing loss, No eye pain Respiratory: No cough, No dyspnea on exertion, No short of breath Cardiovascular: No chest pain, No edema, No palpitations Gastrointestinal: No abdominal pain, No constipation, No diarrhea, No dysphagia Genitourinary: No decreased output, No dysuria, No frequency, No hematuria Musculoskeletal: No back pain, No joint pain, No muscle pain Skin: No change in color, No change in hair/nails Psychiatric/Neurological: Denies Anxiety, Denies Depressed, Denies Headache, Denies Numbness All Other Systems Reviewed Negative Unless Noted: Yes Physical Exam Vital Signs Vital Signs - First Documented Capillary Refill : Less Than 3 Seconds Height, Weight, BMI Height: '" Weight: lbs. oz. kg; 22.45 BMI Method: General Appearance: No Apparent Distress, Chronically ill Eyes: Bilateral Eye Normal Inspection, Bilateral Eye PERRL, Bilateral Eye EOMI HEENT: PERRL/EOMI, Normal ENT Inspection, Pharynx Normal Neck: Full Range of Motion, Normal Inspection, Non Tender, Supple Respiratory: Chest Non Tender, Lungs Clear, Normal Breath Sounds, No Accessory Muscle Use, No Respiratory Distress Cardiovascular: Regular Rate, Rhythm, No Edema, Normal Peripheral Pulses Gastrointestinal: Normal Bowel Sounds, Non Tender, Soft Rectal: Deferred Back: Normal Inspection, No CVA Tenderness, No Vertebral Tenderness Extremity: Normal Capillary Refill, Normal Inspection, Normal Range of Motion, Non Tender, No Pedal Edema, Other (strength +3/5 x4 extremities) Neurologic/Psychiatric: Alert, No Motor/Sensory Deficits, Normal Mood/Affect, 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 stated her name as "Negrito Crisostomo") Skin: Normal Color, Warm/Dry Lymphatic: No Adenopathy Assessment/Plan Assessment and Plan Dysarthria Aphasia CTA and CT head shows no evidence of acute infarct CXR normal MRI head today Continue to monitor for neuro deficits PT/OT/ST eval for IRF placement L side weakness Appears resolved CAD w/ 3x stents Continue aspirin/plavix home regimen COPD HLD Continue home regimen HTN GERD T2DM Metformin held due to contrast Admission Diagnosis Admission Status: Observation Clinical Quality Measures Stroke: Date of last known well: Apr 25, 2021 Time of last known well: 10:00 CASSI WAGNER DO 04/27/21 0521: History of Present Illness History of Present Illness Reason for visit/HPI Chief complaint: Recurrent stroke History present illness: This is a 76-year-old white female clinic patient of [facility] who has a prior stroke with minimal residual dysarthria who presented to the ER with strokelike symptoms with left-sided weakness and difficulty speaking. ER revealed no significant acute abnormality but due to her deficits she was placed in observation on telemetry to obtain MRI and further risk stratification. MRI did confirm new CVA. Inpatient rehab will be pursued. Allergies and Home Medications Allergies Coded Allergies: No Known Drug Allergies (Unverified , 05/12/20) Patient Home Medication List Home Medication List Reviewed: Yes Amlodipine Besylate (Amlodipine Besylate) 5 Mg Tablet, 5 MG PO DAILY, (Reported) Entered as Reported by: DIANE PERES on 02/28/21852 Last Action: Reviewed Aspirin (Aspirin EC) 81 Mg Tablet.dr, 81 MG PO DAILY, (Reported) Entered as Reported by: DIANE PERES on 02/28/21852 Last Action: Reviewed Atorvastatin Calcium (Atorvastatin Calcium) 40 Mg Tablet, 40 MG PO DAILY, ( Reported) Entered as Reported by: DIANE PERES on 02/28/21852 Last Action: Reviewed Budesonide/Formoterol Fumarate (Symbicort 160-4.5 Mcg Inhaler) 10.2 Gm Hfa.aer.ad, 2 PUFF IH BID, (Reported) Entered as Reported by: DIANE PERES on 02/28/21852 Last Action: Reviewed Carvedilol (Carvedilol) 3.125 Mg Tablet, 3.125 MG PO BID, (Reported) Entered as Reported by: DIANE PERES on 02/28/21852 Last Action: Reviewed Clopidogrel Bisulfate (Clopidogrel) 75 Mg Tablet, 75 MG PO DAILY, (Reported) Entered as Reported by: DIANE PERES on 8/31/21 0853 Last Action: Reviewed Famotidine (Famotidine) 20 Mg Tablet, 20 MG PO DAILY, (Reported) Entered as Reported by: DIANE PERES on 02/28/21852 Last Action: Reviewed Fluoxetine HCl (Fluoxetine HCl) 40 Mg Capsule, 40 MG PO HS, (Reported) Entered as Reported by: DIANE PERES on 02/28/21902 Last Action: Reviewed Olmesartan/Hydrochlorothiazide (Benicar Hct 20-12.5 mg Tablet) 1 Each Tablet, 1 EACH PO HS, (Reported) Entered as Reported by: DIANE PERES on 02/28/21852 Last Action: Reviewed Sennosides/Docusate Sodium (Senna-S Tablet) 1 Each Tablet, 1 EACH PO BID, (Reported) Entered as Reported by: DIANE PERES on 02/28/21852 Last Action: Reviewed Discontinued Medications Cefdinir (Cefdinir) 300 Mg Capsule, 300 MG PO BID Discontinued Reason: No Longer Taking Prescribed by: CASSI WAGNER on 02/28/21 102 Last Action: Discontinued Past Rfddxeb-Omapdk-Tckbkj Hx Patient Social History Marrital Status: single Employed/Student: retired Smoking Status: Former Smoker Substance use?: No Alcohol Use?: No Past Medical History Surgeries: Vascular Surgery (Carotid) COPD Coronary Artery Disease, High Cholesterol, Hypertension Stroke Bladder Infection, Renal Failure Arthritis Diabetes, Non-Insulin dep Depression Family Medical History Patient reports no known family medical history. Review of Systems Constitutional: see HPI, dizziness, weakness EENTM: no symptoms reported Respiratory: no symptoms reported Cardiovascular: no symptoms reported Gastrointestinal: no symptoms reported Genitourinary: no symptoms reported Musculoskeletal: no symptoms reported Skin: no symptoms reported Psychiatric/Neurological: Weakness All Other Systems Reviewed Negative Unless Noted: Yes Physical Exam General Appearance: No Apparent Distress, WD/WN, Chronically ill Eyes: Bilateral Eye Normal Inspection, Bilateral Eye PERRL, Bilateral Eye EOMI HEENT: PERRL/EOMI, Normal ENT Inspection, Pharynx Normal Neck: Full Range of Motion, Normal Inspection, Non Tender, Supple, Carotid Bruit Respiratory: Chest Non Tender, Lungs Clear, Normal Breath Sounds, No Accessory Muscle Use, No Respiratory Distress Cardiovascular: Regular Rate, Rhythm, No Edema, No Gallop, No JVD, No Murmur, Normal Peripheral Pulses Gastrointestinal: Normal Bowel Sounds, No Organomegaly, No Pulsatile Mass, Non Tender, Soft Back: Normal Inspection, No CVA Tenderness, No Vertebral Tenderness Extremity: Normal Capillary Refill, Normal Inspection, Normal Range of Motion, Non Tender, No Calf Tenderness, No Pedal Edema Neurologic/Psychiatric: Alert, No Motor/Sensory Deficits, Normal Mood/Affect, Aphasia (mild word-finding difficulty), Disoriented (unable to state place/date), Facial Droop (slight R facial droop) Skin: Normal Color, Warm/Dry Lymphatic: No Adenopathy Assessment/Plan Assessment and Plan Assessment: Subacute CVA not a TPA candidate confirmed on MRI Chronic stroke changes on MRI Dysarthria Subtle confusion Diabetes CAD previous bypass PVD previous carotid stent Previous smoker History of UTI Depression Plan: Rehab Problems: (1) CVA (cerebral vascular accident) (2) Dysarthria Admission Diagnosis Admission Status: Observation Supervisory-Addendum Brief Verification & Attestation Participated in pt care: history, MDM, physical Personally performed: exam, history, MDM, supervision of care Care discussed with: Medical Student Procedures: n/a Results interpretation: Verified all documentation Verification and Attestation of Medical Student E/M Service A medical student performed and documented this service in my presence. I reviewed and verified all information documented by the medical student and made modifications to such information, when appropriate. I personally performed the physical exam and medical decision making. Cassi Wagner, Apr 27, 2021,05:16 HAI JOHNSON MED STUDENT Apr 26, 2021 12:51 CASSI WAGNER DO Apr 27, 2021 05:21
--- NOTE | 2021-04-26 15:00 | ST Cognitive Linguistic Eval ---
Speech Evaluation-General Medical Diagnosis CVA Onset Date: Apr 25, 2021 Therapy Diagnosis Therapy Diagnosis: Aphasia, Dysarthria Referral Referring Physician: Dr. Velazquez Reason for Referral: Evaluation/Treatment Medical History Pertinent Medical History: CABG, CAD, COPD, CVA, DM, PVD Reviewed History: Yes Social History Current Living Status: Alone Speech PLF-Current Status Prior Level of Function Patient is known to this clinician due to a previous CVA and ARU admission. The patient currently lives in a local [facility] where she was primarily independent with her daily needs. Subjective Patient was pleasant and cooperative with the cognitive/speech assessment. Daughter was present and reported that the patient has continued to receive skilled ST in the home. Language Eval: Auditory Comprehends Simple Yes/No Ques: Functional Follows 1-Step Commands: Functional Follows Complex Directions: Mild Follows General Conversations: Mild Objective Cognitive Domain Attention: WNL Memory: Mild Problem Solving: Mild Executive Functions: Mild Visuospatial Skills: WNL Composite Severity Rating: Mild Objective Formal/Standardized Tests [facility] Mental Status ([facility]) subtests, informal tasks, observation and chart review. Results The patient presents with clear speech, memory in tact at 80%, able to answer questions appropriately and state preferences. Daughter was present who cued patient on occasion. Oral Motor/Speech Production Patient's speech is clear and intelligible. She does state she had much more slurred speech yesterday upon admission. Impression Patient is a pleasant 76 y/o female who is known to this clinician from a previous CVA and admission. Patient has continued to receive skilled ST in her home since that time. She was evaluated in her room this afternoon with her daughter present. She completed subtests of the SLUMS, informal speech tasks with observation and chart review. Patient was eating a candy bar upon my entering the room. She continued to eat while answering questions without any difficulty note. Speech was reported as slurred yesterday, however today her speech is clear and intelligible. She exhibited mild memory deficit which her daughter cued her as needed. She currently lives in [facility] which she states she loves. She voiced she does not want to do therapy on the inpatient rehab, but prefers to do it in her home. Patient has mild deficits at this time with memory and safety awareness. She states she has a little bit of weakness on the left side this time. She also states her "trouble" with the last CVA was on the right side. She states she is doing ok but feels she is stuck "between heaven and hell". Speech Short Term Goals Short Term Goals Short Term Goals 1) Patient will complete memory tasks related to her daily needs at 80% or greater with minimal cues. 2) Patient will complete safety awareness tasks related to her daily needs at 80% or greater with minimal cues. Speech Deputy Chief Magistrate Goals Deputy Chief Magistrate Goals Patient will be able to complete daily tasks with improved function and safety. Speech-Plan Patient/Family Goals Patient/Family Goals: Patient plans on returning to her [facility] apartment and resuming previouos therapy. Treatment Plan Speech Therapy Treatment Plan: Continue Plan of Care Treatment Duration: May 02, 2021 Frequency: 4 times per week Estimated Hrs Per Day: .25 hour per day Rehab Potential: Fair Barriers to Learning: Patient's mild deficits, previous CVA Pt/Family Agrees to Plan: Yes Safety Risks/Education Teaching Recipient: Patient, Family Teaching Methods: Demonstration, Discussion Response to Teaching: Verbalize Understanding, Return Demonstration Education Topics Provided: Safety within her room and communication of wants/needs. Time Speech Therapy Time In: 14:30 Speech Therapy Time Out: 14:50 Total Billed Time: 20 Billed Treatment Time 1, OMAR VALLADARES [address] Apr 26, 2021 15:00
--- NOTE | 2021-04-26 15:02 | Occupational Therapy Eval ---
OT Evaluation-General/PLF Medical Diagnosis Admission Date Apr 25, 2021 at 19:01 Medical Diagnosis: CVA Onset Date: Apr 25, 2021 Therapy Diagnosis Therapy Diagnosis: impaired balance Precautions Precautions/Isolations: Aspiration, Fall Prevention, Standard Precautions Referral Physician: Cassi Velazquez DO Referral Reason: Evaluation/Treatment Medical History Pertinent Medical History: CABG, CAD, COPD, CVA, DM, PVD Current History Pt presented to ER yesterday afternoon with complaints of L side num bness/weakness and difficulty speaking. Per patient, she lives in assisted living. She is indep with adls. Facility provides assist with meals and transportation. She owns a walker and a cane but only uses a cane when out in the community. She has residual deficits from old stroke including dysarthria, expressive aphasia, and FM control/coordination. Social History Home: Assisted Living Current Living Status: Alone Entry Into Home: Level Entry ADL-Prior Level of Function SCALE: Activities may be completed with or without assistive devices. 3-Ufnqpxnhxd-mvxttbv completes the activity by him/herself with no assistance from a helper. 5-Set-up or Clean-up Assistance-helper sets up or cleans up; patient completes activity. [place] assists only prior to or following the activity. 4-Supervision or Touching Assistance-helper provides verbal cues and/or touching/steadying and/or contact guard assistance as patient completes activity. Assistance may be provided throughout the activity or intermittently. 3-Partial/Moderate Assistance-helper does LESS THAN HALF the effort. [place] lifts, holds or supports trunk or limbs, but provides less than half the effort. 2-Substantial/Maximal Assistance-helper does MORE THAN HALF the effort. [place] lifts or holds trunk or limbs and provides more than half the effort. 4-Txljptouz-rfieff does ALL the effort. Patient does none of the effort to complete the activity. Or, the assistance of 2 or more helpers is required for the patient to complete the activity. If activity was not attempted, code reason: 7-Patient Refused. 9-Not Applicable-not attempted and the patient did not perform the activity before the current illness, exacerbation or injury. 10-Not Attempted due to Environmental Limitations-(lack of equipment, weather restraints, etc.). 88-Not Attempted due to Medical Conditions or Safety Concerns. Self Care: Independent Functional Cognition: Needed Some Help DME/Equipment: Bath Chair, Grab Bars, Shower Drive Self: No OT Current Status Subjective Pt denies pain, agreeable to Eval. Appearance Returned to supine in bed, all needs within reach, dtr in room. Mental Status/Objective Patient Orientation: Person, Place, Situation Attachments: IV, Telemetry Current Upper Extremity ROM WFL, extra time for finger opposition. Upper Extremity Strength 3+/5 throughout. Pt with residual weakness Pt reports impaired R peripheral vision. ADL-Treatment Upper Body Dressing (QC): 4 Lower Body Dressing (QC): 4 On/Off Footwear (QC): 4 Toileting Hygiene (QC): 4 Supine<>sit: SBA. Pt able to don/doff doris socks with use of cross over method. Sit<>Stand: CGA for initial unsteadiness. She ambulated to/from bathroom with CGA, no assistive device. Able to lower/stand from toilet with CGA and use of grab bar. No assist needed for clothing management or olpez care. Discussed using walker more frequently as pt may be more steady with an assistive device. Pt in agreement with suggestion. Education OT Patient Education: Correct positioning, Energy conservation, Modified ADL techniques, Progress toward Goal/Update tx plan, Purpose of tx/functional activities, Reviewed precautions, Rehab process, Safety issues, Transfer techniques Teaching Recipient: Patient Teaching Methods: Demonstration, Discussion Response to Teaching: Verbalize Understanding, Return Demonstration, Reinforcement Needed OT [employer] Analyst Goals Halfway Goals Time Frame: May 05, 2021 Oral Hygiene (QC): 5 Toileting Hygiene (QC): 6 Upper Body Dressing (QC): 5 Lower Body Dressing (QC): 5 On/Off Footwear (QC): 5 1=Demonstrate adherence to instructed precautions during ADL tasks. 2=Patient will verbalize/demonstrate understanding of assistive devices/modifications for ADL. 3=Patient will improve strength/tolerance for activity to enable patient to perform ADL's. OT Education/Plan Problem List/Assessment Assessment: Decreased Activ Tolerance, Decreased Safety Aware, Decreased UE Strength, Impaired Coordination, Impaired Funct Balance, Impaired I ADL's Discharge Recommendations Plan/Recommendations: Continue POC Comment continue to assess. Possible home health pending progress Treatment Plan/Plan of Care Treatment,Training & Education: Yes Patient would benefit from OT for education, treatment and training to promote i ndependence in ADL's, mobility, safety and/or upper extremity function for ADL's. Plan of Care: ADL Retraining, Functional Mobility, UE Funct Exercise/Act, UE Neuromus Re-Ed/Coord, Visual/Perceptual Retrain Treatment Duration: May 05, 2021 Frequency: 5 times per week Estimated Hrs Per Day: .25 hour per day Agreement: Yes Rehab Potential: Fair Time/GCodes Start Time: 14:07 Stop Time: 14:27 Total Time Billed (hr/min): 20 Billed Treatment Time 1 visit, Lupe Mccrary OT Apr 26, 2021 15:02
[2021-04-26] MEDS: FLUoxetine HCL 20 MG (PROzac) CAP PO SCH (20:18)
[2021-04-26] MEDS: inSUlin ASPART (NovoLOG) 1 UNIT/0.01 ML (CHARGE PER UNIT) SC SCH (21:25)
[2021-04-27 03:40] VITALS: BP 166/73
[2021-04-27] MEDS: inSUlin ASPART (NovoLOG) 1 UNIT/0.01 ML (CHARGE PER UNIT) SC SCH ×4 (05:23→20:04)
[2021-04-27 08:00] VITALS: BP 168/75
[2021-04-27] MEDS: DOCUSATE SODIUM 100 MG (COLACE) CAP PO SCH (08:32)
[2021-04-27] MEDS: CLOPIDOGREL 75 MG (PLAVIX) TABLET PO SCH (08:32)
[2021-04-27] MEDS: ASPIRIN E.C. 325 MG (ECOTRIN) TABLET PO SCH (08:32)
--- NOTE | 2021-04-27 10:04 | Physical Therapy Daily Note ---
PT Daily Note-Current Subjective Patient agrees to PT. Family present. Mental Status Patient Orientation: Person, Time, Situation Transfers SCALE: Activities may be completed with or without assistive devices. 0-Wowfgkxaxz-udsxtay completes the activity by him/herself with no assistance from a helper. 5-Set-up or Clean-up Assistance-helper sets up or cleans up; patient completes activity. [place] assists only prior to or following the activity. 4-Supervision or Touching Assistance-helper provides verbal cues and/or touching/steadying and/or contact guard assistance as patient completes activity. Assistance may be provided throughout the activity or intermittently. 3-Partial/Moderate Assistance-helper does LESS THAN HALF the effort. [place] lifts, holds or supports trunk or limbs, but provides less than half the effort. 2-Substantial/Maximal Assistance-helper does MORE THAN HALF the effort. [place] l ifts or holds trunk or limbs and provides more than half the effort. 8-Tfavxowrc-riiyqx does ALL the effort. Patient does none of the effort to complete the activity. Or, the assistance of 2 or more helpers is required for the patient to complete the activity. If activity was not attempted, code reason: 7-Patient Refused. 9-Not Applicable-not attempted and the patient did not perform the activity before the current illness, exacerbation or injury. 10-Not Attempted due to Environmental Limitations-(lack of equipment, weather restraints, etc.). 88-Not Attempted due to Medical Conditions or Safety Concerns. Lying to Sitting/Side of Bed(Q: 6 Sit to Stand (QC): 4 Chair/Pmm-fm-Vdbob Xfer(QC): 4 Gait Training Does the Patient Walk?: Yes Distance: 300' Walk 10 feet (QC): 4 Walk 50 ft with 2 Turns(QC): 4 Walk 150 ft (QC): 4 Gait Assistive Device: FWW SBA with mobility Exercises Seated Therapy Exercises: Ankle pumps, Long arc quads Seated Reps: 15 Assessment Patient tolerated treatment well and is up in recliner with family present. Family reports encouragement with patient's LOF. PT Fdc Goals Plate Inspector Goals PT Plate Inspector Goals Time Frame: May 03, 2021 Roll Left & Right (QC): 6 Sit to Lying (QC): 6 Lying-Sitting on Side/Bed(QC): 6 Sit to Stand (QC): 4 Chair/Dbq-eg-Crphm Xfer(QC): 4 Walk 10 feet (QC): 4 Walk 50ft with 2 Turns (QC): 4 Walk 150 ft (QC): 4 PT Plan Treatment/Plan Treatment Plan: Continue Plan of Care Treatment Plan: Bed Mobility, Education, Functional Activity [place], Functional Strength, Gait, Safety, Therapeutic Exercise, Transfers Treatment Duration: May 03, 2021 Frequency: 6 times per week Estimated Hrs Per Day: .25 hour per day Patient and/or Family Agrees t: Yes Time/GCodes Time In: 903 Time Out: 918 Total Billed Treatment Time: 15 Total Billed Treatment 1 visit FA 15 min SCOOBY MEJIA PT Apr 27, 2021 10:04
[2021-04-27 11:25] VITALS: BP 148/68
[2021-04-27 11:28] LABS: BILIRUBIN,URINE NEGATIVE (NEGATIVE); CLARITY,URINE CLEAR; COLOR,URINE YELLOW; GLUCOSE, URINE (UA) NEGATIVE (NEGATIVE); KETONES,URINE NEGATIVE (NEGATIVE); LEUKOCYTE ESTERASE ,URINE 1+ (NEGATIVE); NITRITE,URINE NEGATIVE (NEGATIVE); PROTEIN,URINE TRACE (NEGATIVE)
[2021-04-27 11:38] LABS: BACTERIA,URINE MODERATE /HPF; RBC,URINE 0-2 /HPF; SQUAMOUS EPITHELIAL CELL,UR 0-2 /HPF; WBC,URINE 50-100 /HPF
--- NOTE | 2021-04-27 12:44 | Progress Note ---
HAI JOHNSON MED STUDENT 04/27/21 1244: Subjective Date Seen by a Provider: Apr 27, 2021 Time Seen by a Provider: 08:00 Subjective/Events-last exam Pt was seen and examined. Daughter is present in room. Awake, alert, pleasant affect, oriented x1 to self, disoriented to place/time. Continues to have dysarthria/aphasia trying to recall. No issues overnight. Last BM yesterday. Plan for transfer to IRF pending insurance approval. Findings from head MRI and TTE were discussed and she verbalized understanding. She had some concern over L hand numbness and L cheek impaired temperature sensation that she has had since August of this year. She has complaints of discomfort and urgency with urination. No complaints of chest pain, SOB, N/V, abd pain. Review of Systems General: No Chills, No Fatigue HEENT: No Visual Changes, No Eye Pain, No Ear Pain Pulmonary: No Dyspnea, No Cough Cardiovascular: No: Chest Pain, Palpitations, Edema Gastrointestinal: No: Nausea, Vomiting, Abdominal Pain, Diarrhea, Constipation Genitourinary: Dysuria; No Incontinence, No Hematuria; Other (urgency) Musculoskeletal: No: neck pain, shoulder pain, back pain Neurological: Numbness (palmar aspect of L hand, impaired hot/cold sensation L cheek) Focused Exam Sepsis Stage: Ruled Out Reason for ruling out sepsis: 0 SIRS criteria Objective Exam Last Set of Vital Signs Vital Signs Date Time Temp Pulse Resp B/P (MAP) Pulse Ox O2 Delivery O2 Flow Rate FiO2 04/27/21 11:25 36.6 65 20 148/68 (94) 97 Room Air Capillary Refill : Less Than 3 Seconds I&O Intake and Output 04/27/21 00:00 Intake Total 1300 ml Balance 1300 ml Intake Oral 1300 ml # Voids 9 # Bowel Movements 1 General: Alert, No Acute Distress, Other (oriented x1 to self, disoriented to place/time) HEENT: PERRLA, EOMI Neck: Supple, No JVD Lungs: Clear to Auscultation Heart: Regular Rate, Normal S1, Normal S2 Abdomen: Normal Bowel Sounds, Soft, No Tenderness Extremities: No Clubbing, No Cyanosis, No Edema, Normal Pulses Skin: No Rashes Neuro: Cranial Nerves 3-12 NL, Other (dysarthria and aphasia when asked certain questions eg place/time) Results Lab Laboratory Tests 10/27/21 20:42: Glucometer 121H 04/26/21 21:11: Glucometer 112H 04/27/21 05:22: Glucometer 104 04/27/21 11:10: Urine Color YELLOW, Urine Clarity CLEAR, Urine pH 6.0, Urine Specific [place] 1.025H, Urine Protein TRACEH, Urine Glucose (UA) NEGATIVE, Urine Ketones NEGATIVE, Urine Nitrite NEGATIVE, Urine Bilirubin NEGATIVE, Urine Urobilinogen 0.2, Urine Leukocyte Esterase 1+H, Urine RBC (Auto) TRACE-IH, Urine RBC 0-2, Urine WBC 50-100H, Urine Squamous Epithelial Cells 0-2, Urine Crystals NONE, Urine Bacteria MODERATEH, Urine Casts NONE, Urine Mucus NEGATIVE, Urine Culture Indicated YES 04/27/21 11:19: Glucometer 177H Assessment/Plan Assessment/Plan Assess & Plan/Chief Complaint Subacute CVA Chronic stroke changes Dysarthria Subtle confusion New infarct seen on MRI, L posterior frontal lobe TTE shows possible PFO, Cardiology consulted IRF evaluation completed and accepted, pending insurance approval for transfer Dysuria UA/UC ordered Diabetes CAD PVD Depression Continue home regimen Insulin sliding scale Clinical Quality Measures Admission Status Admission Dx Dysarthria Aphasia CTA and CT head shows no evidence of acute infarct CXR normal MRI head today Continue to monitor for neuro deficits PT/OT/ST eval for IRF placement L side weakness Appears resolved CAD w/ 3x stents Continue aspirin/plavix home regimen COPD HLD Continue home regimen HTN GERD T2DM Metformin held due to contrast Stroke: Date of last known well: Apr 25, 2021 Time of last known well: 10:00 CASSI WAGNER DO 04/28/21 0550: Subjective Subjective/Events-last exam Dysarthria continues Overall doing well Inpatient rehab was denied by insurance and skilled care was offered and family not asking for expedited appeal UTI will be managed Dr. Ruvalcaba will evaluate PFO Review of Systems General: Fatigue, Malaise Neurological: Weakness, Numbness (palmar aspect of L hand, impaired hot/cold sensation L cheek), Incoordination, Change in speech, Confusion Objective Exam General: Alert, Oriented X3, Cooperative, No Acute Distress Lungs: Clear to Auscultation, Normal Air Movement Heart: Regular Rate, Normal S1, Normal S2, No Murmurs Psych/Mental Status: Mood NL Assessment/Plan Assessment/Plan Assess & Plan/Chief Complaint UTI treatment Dr. Ruvalcaba to evaluate PFO May require anticoagulation if atrial fibrillation is suspected Supervisory-Addendum Brief Verification & Attestation Participated in pt care: history, MDM, physical Personally performed: exam, history, MDM, supervision of care Care discussed with: Medical Student Procedures: n/a Results interpretation: Verified all documentation Verification and Attestation of Medical Student E/M Service A medical student performed and documented this service in my presence. I rev iewed and verified all information documented by the medical student and made modifications to such information, when appropriate. I personally performed the physical exam and medical decision making. Cassi Wagner, Apr 28, 2021,05:48 HAI JOHNSON MED STUDENT Apr 27, 2021 12:44 CASSI WAGNER DO Apr 28, 2021 05:50
--- NOTE | 2021-04-27 13:01 | Occupational Ther Daily Note ---
OT Current Status-Daily Note Subjective No pain reported. Appearance Pt. up in chair. Daughter at her side. Pt. had just had shower. Mental Status/Objective Patient Orientation: Person, Place, Time, Situation ADL-Treatment Therapy Code Descriptions/Definitions Functional [place] Measure: 0=Not Assessed/NA 4=Minimal Assistance 1=Total Assistance 5=Supervision or Setup 2=Maximal Assistance 6=Modified [place] 3=Moderate Assistance 7=Complete IndependenceSCALE: Activities may be completed with or without assistive devices. 1-Mbdqejqnjc-uzsspvf completes the activity by him/herself with no assistance from a helper. 5-Set-up or Clean-up Assistance-helper sets up or cleans up; patient completes activity. [place] assists only prior to or following the activity. 4-Supervision or Touching Assistance-helper provides verbal cues and/or touching/steadying and/or contact guard assistance as patient completes activity. Assistance may be provided throughout the activity or intermittently. 3-Partial/Moderate Assistance-helper does LESS THAN HALF the effort. [place] lifts, holds or supports trunk or limbs, but provides less than half the effort. 2-Substantial/Maximal Assistance-helper does MORE THAN HALF the effort. [place] lifts or holds trunk or limbs and provides more than half the effort. 2-Syhdhfcah-kycpdw does ALL the effort. Patient does none of the effort to complete the activity. Or, the assistance of 2 or more helpers is required for the patient to complete the activity. If activity was not attempted, code reason: 7-Patient Refused. 9-Not Applicable-not attempted and the patient did not perform the activity before the current illness, exacerbation or injury. 10-Not Attempted due to Environmental Limitations-(lack of equipment, weather restraints, etc.). 88-Not Attempted due to Medical Conditions or Safety Concerns. Shower/Bathe Self (QC): 4 (CGA per pt. and her daughter.) Upper Body Dressing (QC): 4 (SBA per pt. and her daughter.) Lower Body Dressing (QC): 3 (Min assist per pt. and her daughter.) On/Off Footwear: 4 (SBA to doff/don slipper socks.) Toileting Hygiene (QC): 4 (CGA to doff pants and underwear off hips, sit on toilet, cleanse self, and don back over hips.) Toilet Transfer (QC): 4 (SBA) Other Treatment Pt. agrees to work with OT. She practices slipper socks first, and then stands from chair with CGA to ambulate into bathroom. Pt. does not use adaptive device. Pt. practices toileting, although she has just been straight cathed and does not have to go. Pt. stands from toilet and ambulates to sink with CGA. Brushes hair with right hand, and CGA provided for balance due to ataxic type movements. Pt. ambulates back to reclining chair, and all needs met. Education OT Patient Education: Correct positioning, Modified ADL techniques, Progress toward Goal/Update tx plan, Purpose of tx/functional activities, Reviewed precautions, Rehab process, Transfer techniques Teaching Recipient: Patient, Family Teaching Methods: Demonstration, Discussion Response to Teaching: Verbalize Understanding, Return Demonstration OT Senior Care Goals Assistant County Attorney Goals Time Frame: May 05, 2021 Oral Hygiene (QC): 5 Toileting Hygiene (QC): 6 Upper Body Dressing (QC): 5 Lower Body Dressing (QC): 5 On/Off Footwear (QC): 5 1=Demonstrate adherence to instructed precautions during ADL tasks. 2=Patient will verbalize/demonstrate understanding of assistive devices/modifications for ADL. 3=Patient will improve strength/tolerance for activity to enable patient to perform ADL's. OT Education/Plan Problem List/Assessment Assessment: Decreased Activ Tolerance, Impaired Funct Balance, Impaired I ADL's, Impaired Self-Care Skills, Visual-Perceptual Deficit Discharge Recommendations Plan/Recommendations: Continue POC Therapy Discharge Recommendati: Post Acute OT Treatment Plan/Plan of Care Patient would benefit from OT for education, treatment and training to promote independence in ADL's, mobility, safety and/or upper extremity function for ADL' s. Plan of Care: ADL Retraining, Functional Mobility, UE Funct Exercise/Act, UE Neuromus Re-Ed/Coord, Visual/Perceptual Retrain Treatment Duration: May 05, 2021 Frequency: 5 times per week Estimated Hrs Per Day: .25 hour per day Agreement: Yes Rehab Potential: Good Time/GCodes Start Time: 11:15 Stop Time: 11:30 Total Time Billed (hr/min): 15 Billed Treatment Time 1, ADL RALPH ULO OT Apr 27, 2021 13:01
--- NOTE | 2021-04-27 13:46 | Speech Therapy Daily Note ---
Speech Daily Progress Note Subjective Time Seen by Provider: 00:08 Patient was resting in bed following her lunch, she states she is really tired. Patient was oriented to all concepts. Daughter at her bedside. Objective Patient able to answer all questions related to self/orientation with clear speech at 100%. Assessment Assessment Current Status: Excellent Progress Treatment Plan Continue Plan of Care Speech Short Term Goals Short Term Goals Short Term Goals 1) Patient will complete memory tasks related to her daily needs at 80% or greater with minimal cues. 2) Patient will complete safety awareness tasks related to her daily needs at 80% or greater with minimal cues. Speech Oil Boiler Goals Oil Boiler Goals Patient will be able to complete daily tasks with improved function and safety. Speech-Plan Patient/Family Goals Patient/Family Goals: Patient plans on returning to her home, however she has been referred to ARU with insurance pending. Treatment Plan Speech Therapy Treatment Plan: Continue Plan of Care Treatment Duration: May 02, 2021 Frequency: 4 times per week Estimated Hrs Per Day: .25 hour per day Rehab Potential: Good Barriers to Learning: Patient's recent CVA, although speech/cognitive deficits are primarily resolved Pt/Family Agrees to Plan: Yes Safety Risks/Education Teaching Recipient: Patient, Family Teaching Methods: Demonstration, Discussion Response to Teaching: Verbalize Understanding, Return Demonstration Education Topics Provided: Continued safety and communication Time Speech Therapy Time In: 13:35 Speech Therapy Time Out: 13:43 Total Billed Time: 8 Billed Treatment Time 1, SHERYL Carpenter Apr 27, 2021 13:46
[2021-04-27] MEDS ORDERED: CEFDINIR 300 MG (OMNICEF) CAP PO NR (14:30)
[2021-04-27 15:15] VITALS: BP 159/69
--- NOTE | 2021-04-27 18:33 | Consultation-Cardiology ---
HPI-Cardiology Cardiology Consultation: Date of Consultation 04/27/2021 Date of Admission 04/25/2021 Attending Physician Cassi Wagner DO Admitting Physician Cassi Wagner DO Consulting Physician ROB PINK JR, MD HPI: Time Seen by a Provider: 18:29 Chief Complaint: Reason for consultation: Cerebrovascular accident with possible patent foramen ovale I had the pleasure of seeing Louise on the medical unit at [facility] in [place], [place] this evening. She has a history of coronary artery disease that was complicated by a perioperative stroke when she had bypass surgery in 2019. This occurred at an outside hospital in [place]. On the day of admission she developed worsening expressive aphasia. She alerted her daughter who brought her to the hospital for further evaluation. She was found to have an acute/subacute infarct of the high posterior left frontal lobe. She then underwent an echocardiogram that showed a possible patent foramen ovale. Because of this finding on an echocardiogram, a cardiology consultation was requested. She actually follows with one of my partners but I did not realize this until the end of my conversation with the patient due to her expressive aphasia. Nonetheless, she does still have a fair amount of expressive aphasia. She can hold a conversation but does have trouble speaking in full sentences and then becomes frustrated. After her first stroke, she was unable to use her right arm to write or eat although she can still move her right arm. She denies chest pain, dyspnea, paroxysmal nocturnal dyspnea, time new, palpitations, lightheadedness, syncope, or ankle edema. Certain portions of this document may have been dictated utilizing voice recognition technology. Inherent to this technology, typographical and grammatical errors may exist. As much as I am diligent to identify and correct these mistakes, some errors may remain in the document. Review of Systems-Cardiology Review of Systems Other comments Difficult to obtain due to her expressive aphasia. All Other Systems Reviewed Negative Unless Noted: Yes YKV-Igzkbs-Wiaqhe Hx Patient Social History Marrital Status: single Employed/Student: retired Smoking Status: Former Smoker Have you traveled recently?: No Alcohol Use?: No Pt feels they are or have been: No Immunizations Up To Date Tetanus Booster (TDap): Unknown Date of Influenza Vaccine: May 10, 2020 Past Medical History PMH As described under Assessment. Family Medical History Family Medical History: She does not report any family history of premature coronary artery disease. Family History: Patient reports no known family medical history. Allergies and Home Medications Allergies Coded Allergies: No Known Drug Allergies (Unverified , 05/12/20) Patient Home Medication List Home Medication List Reviewed: Yes Amlodipine Besylate (Amlodipine Besylate) 5 Mg Tablet, 5 MG PO DAILY, (Reported) Entered as Reported by: DIANE PERES on 02/28/21852 Last Action: Reviewed Aspirin (Aspirin EC) 81 Mg Tablet.dr, 81 MG PO DAILY, (Reported) Entered as Reported by: DIAEN PERES on 02/28/21852 Last Action: Reviewed Atorvastatin Calcium (Atorvastatin Calcium) 40 Mg Tablet, 40 MG PO DAILY, (Reported) Entered as Reported by: DIANE PERES on 02/28/21852 Last Action: Reviewed Budesonide/Formoterol Fumarate (Symbicort 160-4.5 Mcg Inhaler) 10.2 Gm Hfa.aer.ad, 2 PUFF IH BID, (Reported) Entered as Reported by: DIANE PERES on 02/28/21852 Last Action: Reviewed Carvedilol (Carvedilol) 3.125 Mg Tablet, 3.125 MG PO BID, (Reported) Entered as Reported by: DIANE PERES on 02/28/21852 Last Action: Reviewed Clopidogrel Bisulfate (Clopidogrel) 75 Mg Tablet, 75 MG PO DAILY, (Reported) Entered as Reported by: DIANE PERES on 02/28/21852 Last Action: Reviewed Famotidine (Famotidine) 20 Mg Tablet, 20 MG PO DAILY, (Reported) Entered as Reported by: DIANE PERES on 02/28/21852 Last Action: Reviewed Fluoxetine HCl (Fluoxetine HCl) 40 Mg Capsule, 40 MG PO HS, (Reported) Entered as Reported by: DIANE PERES on 02/28/21902 Last Action: Reviewed Olmesartan/Hydrochlorothiazide (Benicar Hct 20-12.5 mg Tablet) 1 Each Tablet, 1 EACH PO HS, (Reported) Entered as Reported by: DIANE PERES on 02/28/21852 Last Action: Reviewed Sennosides/Docusate Sodium (Senna-S Tablet) 1 Each Tablet, 1 EACH PO BID, (Reported) Entered as Reported by: DIANE PERES on 02/28/21852 Last Action: Reviewed Discontinued Medications Cefdinir (Cefdinir) 300 Mg Capsule, 300 MG PO BID Discontinued Reason: No Longer Taking Prescribed by: CASSI WAGNER on 02/28/21 1029 Last Action: Discontinued Exam Vital Signs Vital Signs Date Time Temp Pulse Resp B/P (MAP) Pulse Ox O2 Delivery O2 Flow Rate FiO2 04/27/21 15:15 36.2 61 18 159/69 (99) 96 Room Air Physical Exam General: Alert. No acute distress. Well nourished and appears stated age. Eye: Extraocular movements are intact. Conjunctivae are clear. There are no xanthelasma. HENT: Normocephalic. Atraumatic. Carotid pulsations 2/2 without bruits. Neck: Jugular venous pressure does not appear elevated. No thyromegaly appreciated. Respiratory: Lungs are clear to auscultation. Respirations are non-labored. Breath sounds are equal. Symmetrical chest wall expansion. Cardiovascular: Normal rate. Regular rhythm. No murmur. No gallop. Point of maximal impulse is not appear displaced. Good pulses equal in all extremities. No edema. Gastrointestinal: Soft. Normal bowel sounds. Skin: Skin turgor is normal. There is no pallor. Musculoskeletal: No kyphosis or scoliosis appreciated. Neurologic: Alert and oriented to person, place, time. Cranial nerves 3-12 appear grossly intact. Expressive aphasia. The patient has slight right-sided weakness but good strength on the left side. Psychiatric: Cooperative. Appropriate mood & affect. Labs Laboratory Tests Test 04/26/21 20:42 04/26/21 21:11 04/27/21 05:22 04/27/21 11:10 Range/Units Glucometer 121 H 112 H 104 70-110 MG/DL Urine Color YELLOW Urine Clarity CLEAR Urine pH 6.0 5-9 Urine Specific Cerulean 1.025 H 1.016-1.022 Urine Protein TRACE H NEGATIVE Urine Glucose (UA) NEGATIVE NEGATIVE Urine Ketones NEGATIVE NEGATIVE Urine Nitrite NEGATIVE NEGATIVE Urine Bilirubin NEGATIVE NEGATIVE Urine Urobilinogen 0.2 < = 1.0 MG/DL Urine Leukocyte Esterase 1+ H NEGATIVE Urine RBC (Auto) TRACE-I H NEGATIVE Urine RBC 0-2 /HPF Urine WBC 50-100 H /HPF Urine Squamous Epithelial Cells 0-2 /HPF Urine Crystals NONE /LPF Urine Bacteria MODERATE H /HPF Urine Casts NONE /LPF Urine Mucus NEGATIVE /LPF Urine Culture Indicated YES Test 04/27/21 11:19 04/27/21 15:07 Range/Units Glucometer 177 H 149 H 70-110 MG/DL Radiology ECHOCARDIOGRAM (04/26/2021): 1. Left ventricle: The cavity size is normal. There is mild concentric hypertrophy. Systolic function is normal. The estimated ejection fraction is 60- 65%. There were no regional wall motion abnormalities identified. Doppler parameters are consistent with abnormal left ventricular relaxation (grade 1 diastolic dysfunction). 2. Right ventricle: The cavity size is normal. Systolic function is mildly reduced. TAPSE 1.5 cm. 3. Right atrium: The right atrium is mildly dilated with an area of 20 cm. 4. 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 5. Aortic valve: There is trivial regurgitation. There is mild aortic valve sclerosis. 6. Tricuspid valve: There is moderate regurgitation. 7. Pulmonary arteries: The estimated pulmonary artery systolic pressure is 34 mmHg assuming a right atrial pressure of 5 mmHg. ECG Impression ECG Comment Electrocardiogram from 04/25/2021 shows sinus rhythm with left atrial abnormality, left ventricular hypertrophy with repolarization abnormality and probable old inferior and anterior infarcts. Diagnosis/Problems Diagnosis/Problems (1) Acute cerebrovascular accident Assessment & Plan: She has had a second cerebrovascular accident in a different vascular territory than her previous stroke from about 1 year ago. This raises a concern for an embolic event. Her echocardiogram did show a possible patent foramen ovale but in this age group, it would be more likely to have an embolic stroke from atrial fibrillation, carotid atherosclerosis or possibly aortic atherosclerosis. Nonetheless, given the possible patent foramen ovale, I recommend further evaluation with a transesophageal echocardiogram and possible agitated saline injection to definitively determine whether or not the patient has a patent foramen ovale. This may alter long-term management. I have notified my partner, Dr. Ramos, who normally sees the patient and can perform the procedure tomorrow. In the interim, I recommend she continue on aspirin, clopidogrel, and statin medication. I would not change her dual antiplatelet therapy over to oral anticoagulant at this time. Depending upon the results of the transesophageal echocardiogram, we may want to consider screening her for atrial fibrillation with an event monitor or possibly implantable loop recorder. I will leave that up to the discretion of her regular senior geologist. (2) Patent foramen ovale Assessment & Plan: As above, her transthoracic echocardiogram from 04/26 shows a possible patent foramen ovale with [id number] shunting. I did review her previous transthoracic echocardiogram from January and this showed a suspicious area in the atrial septum but not as clearly identified as during yesterday's study. We will evaluate this further with a transesophageal echocardiogram. (3) Coronary artery disease without angina pectoris Assessment & Plan: She is status post coronary artery bypass surgery. She is not having any angina. Continue aspirin, beta-shashi, and statin medication. (4) Primary hypertension Assessment & Plan: Blood pressures are intermittently elevated but in light of the acute stroke, I would avoid marked reductions in the blood pressure for the time being. (5) Mixed hyperlipidemia Assessment & Plan: Continue statin medication. ROB PINK JR, MD Apr 27, 2021 18:32
[2021-04-27 19:24] VITALS: BP 170/72
[2021-04-27] MEDS: FLUoxetine HCL 20 MG (PROzac) CAP PO SCH (20:20)
[2021-04-27] MEDS: CEFDINIR 300 MG (OMNICEF) CAP PO SCH (20:20)
[2021-04-27 23:30] VITALS: BP 160/72
[2021-04-28] VITALS (13 sets, daily range): BP systolic 118–178; BP diastolic 56–80
[2021-04-28] MEDS: inSUlin ASPART (NovoLOG) 1 UNIT/0.01 ML (CHARGE PER UNIT) SC SCH ×2 (05:35→12:00)
[2021-04-28 06:43] LABS: BASOPHILS % (AUTO) 1 % (0-10); EOSINOPHILS # (AUTO) 0.1 10^3/uL (0.0-0.3); EOSINOPHILS % (AUTO) 2 % (0-10); HEMATOCRIT 42 % (35-52); HEMOGLOBIN 13.5 g/dL (11.5-16.0); LYMPHOCYTES # (AUTO) 1.5 10^3/uL (1.0-4.0); LYMPHOCYTES % (AUTO) 27 % (12-44); MEAN CORPUSCULAR HEMOGLOBIN 29 pg (25-34); MEAN CORPUSCULAR HGB CONC 32 g/dL (32-36); MEAN CORPUSCULAR VOLUME 90 fL (80-99); MEAN PLATELET VOLUME 9.5 fL (9.0-12.2); MONOCYTES # (AUTO) 0.6 10^3/uL (0.0-1.0); MONOCYTES % (AUTO) 11 % (0-12); NEUTROPHILS # (AUTO) 3.4 10^3/uL (1.8-7.8); NEUTROPHILS % (AUTO) 60 % (42-75); PLATELET COUNT 308 10^3/uL (130-400); WHITE BLOOD COUNT 5.7 10^3/uL (4.3-11.0)
[2021-04-28 06:51] LABS: ALBUMIN 3.8 GM/DL (3.2-4.5)
[2021-04-28 06:52] LABS: POTASSIUM 3.8 MMOL/L (3.6-5.0)
[2021-04-28 06:53] LABS: CALCIUM 8.8 MG/DL (8.5-10.1)
[2021-04-28 06:54] LABS: TOTAL PROTEIN 6.9 GM/DL (6.4-8.2)
[2021-04-28 06:56] LABS: BILIRUBIN,TOTAL 0.4 MG/DL (0.1-1.0)
[2021-04-28 06:58] LABS: CREATININE SERUM 0.64 MG/DL (0.60-1.30)
[2021-04-28] MEDS ORDERED: fentaNYL INJ 100 MCG/2 ML AMP ONE (07:35)
[2021-04-28] MEDS ORDERED: MIDAZOLAM 5 MG/5 ML (VERSED) VIAL ONE (07:36)
[2021-04-28] MEDS ORDERED: NS IV 1000 ML 1,000 ML ONE (07:40)
[2021-04-28] MEDS ORDERED: LIDOCAINE 2% VISCOUS 15 ML UDC ONE (07:40)
[2021-04-28] MEDS ORDERED: NS IV 1000 ML 1,000 ML IV ONE (07:45)
[2021-04-28] MEDS ORDERED: LIDOCAINE 2% VISCOUS 15 ML UDC PO ONE (07:45)
[2021-04-28] MEDS ORDERED: MIDAZOLAM 5 MG/5 ML (VERSED) VIAL IV ONE (07:45)
[2021-04-28] MEDS ORDERED: fentaNYL INJ 100 MCG/2 ML AMP IV ONE (07:45)
--- NOTE | 2021-04-28 09:02 | Conscious Sedation/ASA ---
Conscious Sedation Pre-Proced Time 09:01 ASA Score 3 For ASA 3 and 4: Consider anesthesia and medical clearance. Also, for patients with a history of failed moderate sedation consider anesthesia. Airway Lungs Heart ASA score ASA 1: a normal healthy patient ASA 2: a patient with a mild systemic disease (mid diabetes, controlled hypertension, obesity x ASA 3: a patient with a severe systemic disease that limits activity (angina, COPD, prior Myocardial infarction) ASA 4: a patient with an incapacitating disease that is a constant threat to life (CHF, renal failure) ASA 5: a moribund patient not expected to survive 24 hrs. (ruptured aneurysm) ASA 6: a declared brain- patient whose organs are being harvested. For emergent operations, add the letter E after the classification Mallampati Classification Grade 3 Sedation Plan Analgesia, Amnesia, Plan communicated to team members, Discussed options with patient/fam, Discussed risks with patient/fam The patient is an appropriate candidate to undergo the planned procedure, sedation, and anesthesia. The patient immediately re-assessed prior to indication. LOU KASPER MD Apr 28, 2021 09:02
[2021-04-28] MEDS: ASPIRIN E.C. 325 MG (ECOTRIN) TABLET PO SCH (11:06)
[2021-04-28] MEDS: CLOPIDOGREL 75 MG (PLAVIX) TABLET PO SCH (11:06)
[2021-04-28] MEDS: DOCUSATE SODIUM 100 MG (COLACE) CAP PO SCH (11:06)
[2021-04-28] MEDS: CEFDINIR 300 MG (OMNICEF) CAP PO SCH (11:06)
--- NOTE | 2021-04-28 12:04 | Occupational Ther Daily Note ---
OT Current Status-Daily Note Subjective Pt was seated in bed w/ HOB elevated upon OT arrival. Pt's daughter in room during tx session on this date. Mental Status/Objective Patient Orientation: Person, Place, Time, Situation ADL-Treatment Therapy Code Descriptions/Definitions Functional [place] Measure: 0=Not Assessed/NA 4=Minimal Assistance 1=Total Assistance 5=Supervision or Setup 2=Maximal Assistance 6=Modified [place] 3=Moderate Assistance 7=Complete IndependenceSCALE: Activities may be completed with or without assistive devices. 4-Mlkweylxrc-wwyeple completes the activity by him/herself with no assistance from a helper. 5-Set-up or Clean-up Assistance-helper sets up or cleans up; patient completes activity. Jolo assists only prior to or following the activity. 4-Supervision or Touching Assistance-helper provides verbal cues and/or touching/steadying and/or contact guard assistance as patient completes activity. Assistance may be provided throughout the activity or intermittently. 3-Partial/Moderate Assistance-helper does LESS THAN HALF the effort. Jolo lifts, holds or supports trunk or limbs, but provides less than half the effort. 2-Substantial/Maximal Assistance-helper does MORE THAN HALF the effort. Jolo lifts or holds trunk or limbs and provides more than half the effort. 0-Elywsdkjs-hktkal does ALL the effort. Patient does none of the effort to complete the activity. Or, the assistance of 2 or more helpers is required for the patient to complete the activity. If activity was not attempted, code reason: 7-Patient Refused. 9-Not Applicable-not attempted and the patient did not perform the activity before the current illness, exacerbation or injury. 10-Not Attempted due to Environmental Limitations-(lack of equipment, weather restraints, etc.). 88-Not Attempted due to Medical Conditions or Safety Concerns. Oral Hygiene (QC): 4 (Pt performed SBA while standing sink side, no AE during task. ) Toileting Hygiene (QC): 6 (Pt performed IND during task w/ FWW for safety. ) Toilet Transfer (QC): 4 (Pt performed SBA during task w/ FWW for safety. ) Other Treatment Pt was seated in bed w/ HOB elevated upon OT arrival. Pt.'s daughter in room during tx session on this date. Pt performed bed mobility supine to EOB, IND. Pt transferred from sit to stand w/ FWW, SBA for safety. Pt performed functional mobility w/ FWW to toilet, SBA, for safety. Pt performed toileting, transferred from sit to stand w/ FWW, IND. Pt indicates she does not want to use AD and has not been using one, completed remainder of session without AD. Pt stood at sink for oral care, SBA, then returned to bed, SBA. Pt transferred sit to supine IND. Post tx session, pt was seated in bed, w/ HOB elevated, call light within reach, and all needs met. Education OT Patient Education: Energy conservation, Progress toward Goal/Update tx plan, Purpose of tx/functional activities Teaching Recipient: Patient Teaching Methods: Discussion Response to Teaching: Verbalize Understanding OT Usp Goals Usp Goals Time Frame: May 05, 2021 Oral Hygiene (QC): 5 Toileting Hygiene (QC): 6 Upper Body Dressing (QC): 5 Lower Body Dressing (QC): 5 On/Off Footwear (QC): 5 1=Demonstrate adherence to instructed precautions during ADL tasks. 2=Patient will verbalize/demonstrate understanding of assistive devices/modifications for ADL. 3=Patient will improve strength/tolerance for activity to enable patient to perform ADL's. OT Education/Plan Problem List/Assessment Assessment: Impaired I ADL's, Impaired Self-Care Skills Discharge Recommendations Plan/Recommendations: Continue POC Treatment Plan/Plan of Care Patient would benefit from OT for education, treatment and training to promote i ndependence in ADL's, mobility, safety and/or upper extremity function for ADL's. Plan of Care: ADL Retraining, Functional Mobility, UE Funct Exercise/Act, UE Neuromus Re-Ed/Coord, Visual/Perceptual Retrain Treatment Duration: May 05, 2021 Frequency: 5 times per week Estimated Hrs Per Day: .25 hour per day Agreement: Yes Rehab Potential: Good Time/GCodes Start Time: 10:54 Stop Time: 11:05 Total Time Billed (hr/min): 11 Billed Treatment Time 1 Visit, ADL HOMER QUEZADA OT Apr 28, 2021 12:04
[2021-04-28] MEDS ORDERED: CEFD300C3 PO (12:11)
--- NOTE | 2021-04-28 12:12 | D/C HH Face to Face Order ---
D/C Face to Face Orders Reconcile Patient Problems Problems Reviewed?: Yes Instructions for Patient Via [facility], Patient Instructions/FollowUp: Dr Velazquez in 2 weeks Physician to follow Patient: Caroline Discharge Diet for Home: ADA Diet, Cardiac Diet Patient Problems: CVA recurrent UTI Patient Data-Allergies,Ht & Wt Patient Allergies: Coded Allergies: No Known Drug Allergies (Unverified , 05/12/20) Home Health Need/Face to Face Date of Face to Face: Apr 28, 2021 Clinical Findings: Generalized weakness and fatigue, Instability, Muscle weakness, Unsteady gait I have seen Pt [id number]: Yes Discharged To: Home Diagnosis/Conditions: CVA recurrent UTI Patient is Homebound due to: CognItive deficits, Hilda fall risk due to instabilty, Muscle weakness Homebound Status Due to the above stated illness, injury or surgical procedure (medical condition or diagnosis) and associated clinical findings, the patient is homebound because of his/her inability to leave home except with aid of a supportive device and/or person AND leaving the home requires a considerable and taxing effort or is medically contraindicated. Pt req the following assistanc: [facility] Nursing Orders Home Health Services Order: Consumer Insights Specialist-Evaluate & Treat, Physical Therapy-Evaluate & Treat, Speech Language-Evaluate & Treat (Gerardo Taylor requested) Home Health Infusion Therapy Line Start Date: Apr 25, 2021 Certify Stmt I certify that this patient is under my care and that I, a nurse practitioner or a physician; a tax assistant working with me, had a face to face encounter that - meets the physician face to face encounter requirements with this patient as dated. BEKCI VELAZQUEZ DO Apr 28, 2021 12:12
--- NOTE | 2021-04-28 12:12 | Discharge Summary ---
Diagnosis/Chief Complaint Date of Admission Apr 25, 2021 at 19:01 Date of Discharge Discharge Date: Apr 28, 2021 Discharge Diagnosis Dysarthria Aphasia CTA and CT head shows no evidence of acute infarct CXR normal MRI head today Continue to monitor for neuro deficits PT/OT/ST eval for IRF placement L side weakness Appears resolved CAD w/ 3x stents Continue aspirin/plavix home regimen COPD HLD Continue home regimen HTN GERD T2DM Metformin held due to contrast Reason Hospital Visit Chief complaint: Recurrent stroke History present illness: This is a 76-year-old white female clinic patient of [facility] who has a prior stroke with minimal residual dysarthria who presented to the ER with strokelike symptoms with left-sided weakness and difficulty speaking. ER revealed no significant acute abnormality but due to her deficits she was placed in observation on telemetry to obtain MRI and further risk stratification. MRI did confirm new CVA. Inpatient rehab will be pursued. Discharge Summary Discharge Physical Examination Allergies: Coded Allergies: No Known Drug Allergies (Unverified , 05/12/20) Vitals & I&Os Vital Signs Date Time Temp Pulse Resp B/P (MAP) Pulse Ox O2 Delivery O2 Flow Rate FiO2 04/28/21 12:41 59 04/28/21 11:00 36.2 04/28/21 11:00 18 154/78 (103) 96 Room Air 04/28/21 09:00 5.00 General Appearance: Alert, Oriented X3, Cooperative Respiratory: Clear to Auscultation Cardiovascular: Regular Rate Neuro: Normal Gait, Normal Speech, Strength at 5/5 X4 Ext Psych/Mental Status: Mental Status NL Hospital Course Was the Problem List Reviewed?: Yes Hospital course: Louise presented to the ED on 04/25 with complaints of stroke-like symptoms including L sided numbness/weakness, dysarthria, and dysphasia. Stroke protocol was activated but she was beyond the window for tPA treatment. Her symptoms mostly resolved by the next morning but continued to have residual dysarthria, dysphasia and confusion. Her mental status remained A&Ox1 to self, throughout her stay. CT/CTA head demonstrated chronic changes/encephalomalacia consistent with her prior stroke. MRI head showed a new infarct in her L posterior frontal lobe. TTE was completed showing a possible PFO. Cardiology was consulted and NOLVIA was performed showing no PFO present. She developed symptoms consistent with UTI during her stay and was started on Omnicef which helped resolve her symptoms by the time of discharge; she will finish her course of antibiotics as outpatient. She has no questions or concerns at time of discharge. She is being discharged to [facility] with [facility], today. Labs (last 24 hrs) Laboratory Tests 04/25/21 16:14: White Blood Count 7.8, Red Blood Count 4.70, Hemoglobin 13.5, Hematocrit 42, Mean Corpuscular Volume 90, Mean Corpuscular Hemoglobin 29, Mean Corpuscular Hemoglobin Concent 32, Red Cell Distribution Width 14.6H, Platelet Count 378, Mean Platelet Volume 9.8, Immature Granulocyte % (Auto) 0, Neutrophils (%) (Auto) 55, Lymphocytes (%) (Auto) 33, Monocytes (%) (Auto) 10, Eosinophils (%) (Auto) 2, Basophils (%) (Auto) 1, Neutrophils # (Auto) 4.2, Lymphocytes # (Auto) 2.6, Monocytes # (Auto) 0.8, Eosinophils # (Auto) 0.1, Basophils # (Auto) 0.1, Immature Granulocyte # (Auto) 0.0, Prothrombin Time 13.6, INR Comment 1.0, Activated Partial Thromboplast Time 38H, D-Dimer 0.37, Sodium Level 136, Potassium Level 4.2, Chloride Level 101, Carbon Dioxide Level 24, Anion Gap 11, Blood Urea Nitrogen 14, Creatinine 0.74, Estimat Glomerular Filtration Rate 77, BUN/Creatinine Ratio 19, Glucose Level 103, Glucometer 102, Calcium Level 9.8, Corrected Calcium 9.6, Total Bilirubin 0.4, Aspartate Amino Transf (AST/SGOT) 15, Alanine Aminotransferase (ALT/SGPT) 17, Alkaline Phosphatase 91, Troponin I < 0.028, Total Protein 8.0, Albumin 4.3 04/25/21 16:33: Urine Color YELLOW, Urine Clarity CLEAR, Urine pH 6.0, Urine Specific [place] 1.020, Urine Protein NEGATIVE, Urine Glucose (UA) NEGATIVE, Urine Ketones NEGATIVE, Urine Nitrite NEGATIVE, Urine Bilirubin NEGATIVE, Urine Urobilinogen 0.2, Urine Leukocyte Esterase TRACEH, Urine RBC (Auto) NEGATIVE, Urine RBC NONE, Urine WBC 0-2, Urine Squamous Epithelial Cells RARE, Urine Crystals NONE, Urine Bacteria NEGATIVE, Urine Casts PRESENT, Urine Hyaline Casts RARE, Urine Mucus NEGATIVE, Urine Culture Indicated NO 04/26/21 05:07: White Blood Count 6.3, Red Blood Count 4.48, Hemoglobin 12.9, Hematocrit 40, Mean Corpuscular Volume 89, Mean Corpuscular Hemoglobin 29, Mean Corpuscular Hemoglobin Concent 32, Red Cell Distribution Width 14.6H, Platelet Count 302, Mean Platelet Volume 9.8, Immature Granulocyte % (Auto) 1, Neutrophils (%) (Auto) 58, Lymphocytes (%) (Auto) 30, Monocytes (%) (Auto) 10, Eosinophils (%) (Auto) 1, Basophils (%) (Auto) 1, Neutrophils # (Auto) 3.7, Lymphocytes # (Auto) 1.9, Monocytes # (Auto) 0.6, Eosinophils # (Auto) 0.1, Basophils # (Auto) 0.0, Immature Granulocyte # (Auto) 0.0, Sodium Level 137, Potassium Level 3.8, Chloride Level 104, Carbon Dioxide Level 22, Anion Gap 11, Blood Urea Nitrogen 11, Creatinine 0.63, Estimat Glomerular Filtration Rate 92, BUN/Creatinine Ratio 17, Glucose Level 112H, Calcium Level 9.2, Corrected Calcium 9.4, Total Bilirubin 0.4, Aspartate Amino Transf (AST/SGOT) 13, Alanine Aminotransferase (ALT/SGPT) 13, Alkaline Phosphatase 75, Total Protein 6.8, Albumin 3.7, Triglycerides Level 73, Cholesterol Level 150, LDL Cholesterol Direct 87, VLDL Cholesterol 15, HDL Cholesterol 51 04/26/21 20:42: Glucometer 121H 04/26/21 21:11: Glucometer 112H 04/27/21 05:22: Glucometer 104 04/27/21 11:10: Urine Color YELLOW, Urine Clarity CLEAR, Urine pH 6.0, Urine Specific [place] 1.025H, Urine Protein TRACEH, Urine Glucose (UA) NEGATIVE, Urine Ketones NEGATIVE, Urine Nitrite NEGATIVE, Urine Bilirubin NEGATIVE, Urine Urobilinogen 0.2, Urine Leukocyte Esterase 1+H, Urine RBC (Auto) TRACE-IH, Urine RBC 0-2, Urine WBC 50-100H, Urine Squamous Epithelial Cells 0-2, Urine Crystals NONE, Urine Bacteria MODERATEH, Urine Casts NONE, Urine Mucus NEGATIVE, Urine Culture Indicated YES 04/27/21 11:19: Glucometer 177H 04/27/21 15:07: Glucometer 149H 04/27/21 20:02: Glucometer 89 04/28/21 05:34: Glucometer 93 04/28/21 06:25: White Blood Count 5.7, Red Blood Count 4.71, Hemoglobin 13.5, Hematocrit 42, Mean Corpuscular Volume 90, Mean Corpuscular Hemoglobin 29, Mean Corpuscular Hemoglobin Concent 32, Red Cell Distribution Width 14.5, Platelet Count 308, Mean Platelet Volume 9.5, Immature Granulocyte % (Auto) 0, Neutrophils (%) (Auto) 60, Lymphocytes (%) (Auto) 27, Monocytes (%) (Auto) 11, Eosinophils (%) (Auto) 2, Basophils (%) (Auto) 1, Neutrophils # (Auto) 3.4, Lymphocytes # (Auto) 1.5, Monocytes # (Auto) 0.6, Eosinophils # (Auto) 0.1, Basophils # (Auto) 0.0, Immature Granulocyte # (Auto) 0.0, Sodium Level 139, Potassium Level 3.8, Chloride Level 104, Carbon Dioxide Level 24, Anion Gap 11, Blood Urea Nitrogen 8, Creatinine 0.64, Estimat Glomerular Filtration Rate 90, BUN/Creatinine Ratio 13, Glucose Level 108H, Calcium Level 8.8, Corrected Calcium 9.0, Total Bilirubin 0.4, Aspartate Amino Transf (AST/SGOT) 16, Alanine Aminotransferase (ALT/SGPT) 15, Alkaline Phosphatase 81, Total Protein 6.9, Albumin 3.8 04/28/21 11:27: Glucometer 101 Microbiology 04/27/21 Urine Culture - Final, Complete Escherichia coli Pending Labs Microbiology Date/Time Source Procedure Growth Status 04/27/21 11:10 Urine Straight Cath, In/Out Urine Culture - Final Escherichia coli Complete Laboratory Tests 04/25/21 16:14: White Blood Count 7.8, Red Blood Count 4.70, Hemoglobin 13.5, Hematocrit 42, Mean Corpuscular Volume 90, Mean Corpuscular Hemoglobin 29, Mean Corpuscular Hemoglobin Concent 32, Red Cell Distribution Width 14.6, Platelet Count 378, Mean Platelet Volume 9.8, Immature Granulocyte % (Auto) 0, Neutrophils (%) (Auto) 55, Lymphocytes (%) (Auto) 33, Monocytes (%) (Auto) 10, Eosinophils (%) (Auto) 2, Basophils (%) (Auto) 1, Neutrophils # (Auto) 4.2, Lymphocytes # (Auto) 2.6, Monocytes # (Auto) 0.8, Eosinophils # (Auto) 0.1, Basophils # (Auto) 0.1, Immature Granulocyte # (Auto) 0.0, Prothrombin Time 13.6, INR Comment 1.0, Activated Partial Thromboplast Time 38, D-Dimer 0.37, Sodium Level 136, Potassium Level 4.2, Chloride Level 101, Carbon Dioxide Level 24, Anion Gap 11, Blood Urea Nitrogen 14, Creatinine 0.74, Estimat Glomerular Filtration Rate 77, BUN/Creatinine Ratio 19, Glucose Level 103, Glucometer 102, Calcium Level 9.8, Corrected Calcium 9.6, Total Bilirubin 0.4, Aspartate Amino Transf (AST/SGOT) 15, Alanine Aminotransferase (ALT/SGPT) 17, Alkaline Phosphatase 91, Troponin I < 0.028, Total Protein 8.0, Albumin 4.3 04/25/21 16:33: Urine Color YELLOW, Urine Clarity CLEAR, Urine pH 6.0, Urine Specific [place] 1.020, Urine Protein NEGATIVE, Urine Glucose (UA) NEGATIVE, Urine Ketones NEGATIVE, Urine Nitrite NEGATIVE, Urine Bilirubin NEGATIVE, Urine Urobilinogen 0.2, Urine Leukocyte Esterase TRACE, Urine RBC (Auto) NEGATIVE, Urine RBC NONE, Urine WBC 0-2, Urine Squamous Epithelial Cells RARE, Urine Crystals NONE, Urine Bacteria NEGATIVE, Urine Casts PRESENT, Urine Hyaline Casts RARE, Urine Mucus NEGATIVE, Urine Culture Indicated NO 04/26/21 05:07: White Blood Count 6.3, Red Blood Count 4.48, Hemoglobin 12.9, Hematocrit 40, Mean Corpuscular Volume 89, Mean Corpuscular Hemoglobin 29, Mean Corpuscular Hemoglobin Concent 32, Red Cell Distribution Width 14.6, Platelet Count 302, Mean Platelet Volume 9.8, Immature Granulocyte % (Auto) 1, Neutrophils (%) (Auto) 58, Lymphocytes (%) (Auto) 30, Monocytes (%) (Auto) 10, Eosinophils (%) (Auto) 1, Basophils (%) (Auto) 1, Neutrophils # (Auto) 3.7, Lymphocytes # (Auto) 1.9, Monocytes # (Auto) 0.6, Eosinophils # (Auto) 0.1, Basophils # (Auto) 0.0, Immature Granulocyte # (Auto) 0.0, Sodium Level 137, Potassium Level 3.8, Chloride Level 104, Carbon Dioxide Level 22, Anion Gap 11, Blood Urea Nitrogen 11, Creatinine 0.63, Estimat Glomerular Filtration Rate 92, BUN/Creatinine Ratio 17, Glucose Level 112, Calcium Level 9.2, Corrected Calcium 9.4, Total Bilirubin 0.4, Aspartate Amino Transf (AST/SGOT) 13, Alanine Aminotransferase (ALT/SGPT) 13, Alkaline Phosphatase 75, Total Protein 6.8, Albumin 3.7, Triglycerides Level 73, Cholesterol Level 150, LDL Cholesterol Direct 87, VLDL Cholesterol 15, HDL Cholesterol 51 04/26/21 20:42: Glucometer 121 04/26/21 21:11: Glucometer 112 04/27/21 05:22: Glucometer 104 04/27/21 11:10: Urine Color YELLOW, Urine Clarity CLEAR, Urine pH 6.0, Urine Specific [place] 1.025, Urine Protein TRACE, Urine Glucose (UA) NEGATIVE, Urine Ketones NEGATIVE, Urine Nitrite NEGATIVE, Urine Bilirubin NEGATIVE, Urine Urobilinogen 0.2, Urine Leukocyte Esterase 1+, Urine RBC (Auto) TRACE-I, Urine RBC 0-2, Urine WBC 50- 100, Urine Squamous Epithelial Cells 0-2, Urine Crystals NONE, Urine Bacteria MODERATE, Urine Casts NONE, Urine Mucus NEGATIVE, Urine Culture Indicated YES 04/27/21 11:19: Glucometer 177 04/27/21 15:07: Glucometer 149 04/27/21 20:02: Glucometer 89 04/28/21 05:34: Glucometer 93 04/28/21 06:25: White Blood Count 5.7, Red Blood Count 4.71, Hemoglobin 13.5, Hematocrit 42, Mean Corpuscular Volume 90, Mean Corpuscular Hemoglobin 29, Mean Corpuscular Hemoglobin Concent 32, Red Cell Distribution Width 14.5, Platelet Count 308, Mean Platelet Volume 9.5, Immature Granulocyte % (Auto) 0, Neutrophils (%) (Auto) 60, Lymphocytes (%) (Auto) 27, Monocytes (%) (Auto) 11, Eosinophils (%) (Auto) 2, Basophils (%) (Auto) 1, Neutrophils # (Auto) 3.4, Lymphocytes # (Auto) 1.5, Monocytes # (Auto) 0.6, Eosinophils # (Auto) 0.1, Basophils # (Auto) 0.0, Immature Granulocyte # (Auto) 0.0, Sodium Level 139, Potassium Level 3.8, Chloride Level 104, Carbon Dioxide Level 24, Anion Gap 11, Blood Urea Nitrogen 8, Creatinine 0.64, Estimat Glomerular Filtration Rate 90, BUN/Creatinine Ratio 13, Glucose Level 108, Calcium Level 8.8, Corrected Calcium 9.0, Total Bilirubin 0.4, Aspartate Amino Transf (AST/SGOT) 16, Alanine Aminotransferase (ALT/SGPT) 15, Alkaline Phosphatase 81, Total Protein 6.9, Albumin 3.8 04/28/21 11:27: Glucometer 101 Discharge Home Medications: Active Scripts Active Cefdinir 300 Mg Capsule 300 Mg PO BID Reported Fluoxetine HCl 40 Mg Capsule 40 Mg PO HS Amlodipine Besylate 5 Mg Tablet 5 Mg PO DAILY Carvedilol 3.125 Mg Tablet 3.125 Mg PO BID Clopidogrel (Clopidogrel Bisulfate) 75 Mg Tablet 75 Mg PO DAILY Atorvastatin Calcium 40 Mg Tablet 40 Mg PO DAILY Aspirin EC (Aspirin) 81 Mg Tablet.dr 81 Mg PO DAILY Symbicort 160-4.5 Mcg Inhaler (Budesonide/Formoterol Fumarate) 10.2 Gm Hfa.aer.ad 2 Puff IH BID Benicar Hct 20-12.5 mg Tablet (Olmesartan/Hydrochlorothiazide) 1 Each Tablet 1 Each PO HS Senna-S Tablet (Sennosides/Docusate Sodium) 1 Each Tablet 1 Each PO BID Famotidine 20 Mg Tablet 20 Mg PO DAILY Instructions to patient/family Please see electronic discharge instructions given to patient. Diagnosis/Problems Diagnosis/Problems (1) CVA (cerebral vascular accident) (2) Dysarthria Clinical Quality Measures Stroke: Date of last known well: Apr 25, 2021 Time of last known well: 10:00 BECKI WAGNER DO Apr 28, 2021 12:12
--- NOTE | 2021-04-28 15:12 | Progress Note ---
HAI JOHNSON MED STUDENT 04/28/21 1512: Progress Note Hospital course: Louise presented to the ED on 04/25 with complaints of stroke-like symptoms including L sided numbness/weakness, dysarthria, and dysphasia. Stroke protocol was activated but she was beyond the window for tPA treatment. Her symptoms mostly resolved by the next morning but continued to have residual dysarthria, dysphasia and confusion. Her mental status remained A&Ox1 to self, throughout her stay. CT/CTA head demonstrated chronic changes/encephalomalacia consistent with her prior stroke. MRI head showed a new infarct in her L posterior frontal lobe. TTE was completed showing a possible PFO. Cardiology was consulted and NOLVIA was performed showing no PFO present. She developed symptoms consistent with UTI during her stay and was started on Omnicef which helped resolve her symptoms by the time of discharge; she will finish her course of antibiotics as outpatient. She has no questions or concerns at time of discharge. She is being discharged to [facility] with [facility], today. CASSI WAGNER DO 04/29/21 0656: Supervisory-Addendum Brief Verification & Attestation Participated in pt care: history, MDM, physical Personally performed: exam, history, MDM, supervision of care Care discussed with: Medical Student Procedures: n/a Results interpretation: Verified all documentation Verification and Attestation of Medical Student E/M Service A medical student performed and documented this service in my presence. I reviewed and verified all information documented by the medical student and made modifications to such information, when appropriate. I personally performed the physical exam and medical decision making. Cassi Wagner, Apr 29, 2021,06:56 HAI JOHNSON MED STUDENT Apr 28, 2021 15:12 CASSI WAGNER DO Apr 29, 2021 06:56
[2021-04-28] MEDS ORDERED: SENNA W/DOCUSATE (SENOKOT S) TABLET PO SCH (21:00)
[2021-04-28] MEDS ORDERED: NON-FORMULARY MEDICATION 1 EA EA (Budesonide/Formoterol Fumarate (Symbicort 160-4.5 Mcg In IH SCH (21:00)
[2021-04-28] MEDS ORDERED: [UNRECOGNIZED DRUG - OTHER] PO SCH (21:00)
[2021-04-28] MEDS ORDERED: OLMESARTAN PO SCH (21:00)
[2021-04-28] MEDS ORDERED: HYDROCHLOROTHIAZIDE PO SCH (21:00)
[2021-04-28] MEDS ORDERED: RT--FLUTICASONE/SALMETEROL 232-14 (AIRDUO RespiCLICK) IH SCH (21:00)
[2021-04-28] MEDS ORDERED: LOSARTAN 100 MG (COZAAR) TABLET PO SCH (21:00)
[2021-04-28] MEDS ORDERED: NON-FORMULARY MEDICATION 1 EA EA (Fluoxetine HCl 40 MG) PO SCH (21:00)
[2021-04-29] MEDS ORDERED: ASPIRIN E.C. 81 MG (ECOTRIN) TAB PO SCH (09:00)
[2021-04-29] MEDS ORDERED: FAMOTIDINE 20 MG (PEPCID) TABLET PO SCH (09:00)
[2021-04-29] MEDS ORDERED: CLOPIDOGREL 75 MG (PLAVIX) TABLET PO SCH (09:00)
[2021-04-29] MEDS ORDERED: amLODIPine 5 MG (NORVASC) TAB PO SCH (09:00)
== END 2021-04-28 14:35 | disposition home health service (06) | DRG 65 ==
LOC: EDUNIT# 16:07 → ER 16:09 → CSD 19:01 → 4TH 04-26 21:00
PROVIDERS: ADMIT Internal Medicine; ATTEND Internal Medicine
DX: I63.9 Cerebral infarction, unspecified (principal); G81.91 Hemiplegia, unspecified affecting right dominant side; I42.9 Cardiomyopathy, unspecified; N39.0 Urinary tract infection, site not specified; Q21.1 Atrial septal defect; I25.10 Atherosclerotic heart disease of native coronary artery without angina pectoris; E78.00 Pure hypercholesterolemia, unspecified; I10 Essential (primary) hypertension; K21.9 Gastro-esophageal reflux disease without esophagitis; M19.90 Unspecified osteoarthritis, unspecified site; G89.29 Other chronic pain; M54.9 Dorsalgia, unspecified; E11.9 Type 2 diabetes mellitus without complications; R29.704 NIHSS score 4; R47.1 Dysarthria and anarthria; R47.01 Aphasia; J44.9 Chronic obstructive pulmonary disease, unspecified; F32.A Depression, unspecified; E78.2 Mixed hyperlipidemia; Z79.82 Long term (current) use of aspirin; Z79.899 Other long term (current) drug therapy; I25.2 Old myocardial infarction; Z95.1 Presence of aortocoronary bypass graft; Z87.891 Personal history of nicotine dependence; Z95.5 Presence of coronary angioplasty implant and graft
CPT/HCPCS: 36415; 70450; 70496; 70498; 70551; 71045; 80053; 80061; 81000; 82947; 84484; 85025; 85379; 85610; 85730; 87088; 87186; 93005; 93041; 93306

== ENCOUNTER → 2022-04-19 | Outpatient (CLI) | payer MEDICAID, MEDICARE ==
[~2022-04-19] MED LIST changes: +OLME-38 PO; -OLME1TAB18 PO
--- NOTE | 2022-04-19 15:29 | Diagnostic Imaging Report ---
Indication: Unwitnessed fall and confusion. Technique: Multiple contiguous axial images were obtained through the brain without the use of intravenous contrast. Auto Exposure Controls were utilized during the CT exam to meet ALARA standards for radiation dose reduction. Comparison made to 04/25/2021 There are diffuse atrophic changes. There is a large old left occipital infarct in the [employer] territory. Smaller infarcts are seen in the left frontoparietal region and posterior frontal region. There is a small old infarct in the right posterior frontal region. There is no hemorrhage or mass effect or midline shift. Ventricles are normal in size for age. Calvarial windows appear unremarkable. IMPRESSION: Atrophic changes and chronic changes with multiple old infarcts as above. No acute hemorrhage or calvarial fracture. Dictated by: Dictated on workstation # [id number]
== END ==
LOC: RAD 13:45
PROVIDERS: ATTEND Nurse Practitioner Gerontology
DX: G31.9 Degenerative disease of nervous system, unspecified (principal); Z86.73 Personal history of transient ischemic attack (TIA), and cerebral infarction without residual deficits
CPT/HCPCS: 70450

== ENCOUNTER 2022-06-20 10:40 | Emergency (ER) | payer OTHER ==
[~2022-06-20] VITALS: Ht 162 cm; Wt 59.3 kg
--- NOTE | 2022-06-20 11:20 | ED Cough/URI ---
General Stated Complaint: FLU-LIKE SYMPTOMS History of Present Illness Date Seen by Provider: Jun 20, 2022 Time Seen by Provider: 11:00 Initial Comments 77 yr F with PMH of Dementia/ CVA ( 2019)/ CAD with CABG, with recent Influenza A and has completed a course of Tamiflu. The patient went home and sent her here via EMS with complaints of ongoing fever, cough, nausea and vomiting for the past 3 weeks. In the ER patient has not coughed and she was afebrile. Patient is very weepy, crying, confused due to the dementia. Patient is alert and oriented although she cannot answer questions regarding her past medical history or any past information. Denies diarrhea, chest pain, shortness of breath, headache. Allergies and Home Medications Allergies Coded Allergies: No Known Drug Allergies (Unverified , 06/20/22) Patient Home Medication List Home Medication List Reviewed: Yes Amlodipine Besylate (Amlodipine Besylate) 5 Mg Tablet, 5 MG PO DAILY, (Reported) Entered as Reported by: DIANE PERES on 02/28/21 08 Aspirin (Aspirin EC) 81 Mg Tablet.dr, 81 MG PO DAILY, (Reported) Entered as Reported by: DIANE PERES on 02/28/21 08 Atorvastatin Calcium (Atorvastatin Calcium) 40 Mg Tablet, 40 MG PO DAILY, (Reported) Entered as Reported by: DIANE PERES on 02/28/21 08 Budesonide/Formoterol Fumarate (Symbicort 160-4.5 Mcg Inhaler) 10.2 Gm Hfa.aer.ad, 2 PUFF IH BID, (Reported) Entered as Reported by: DIANE PERES on 02/28/21 08 Carvedilol (Carvedilol) 3.125 Mg Tablet, 3.125 MG PO BID, (Reported) Entered as Reported by: DIANE PERES on 02/28/21 08 Cefdinir (Cefdinir) 300 Mg Capsule, 300 MG PO BID Prescribed by: BECKI WAGNER on 04/28/21 1211 Clopidogrel Bisulfate (Clopidogrel) 75 Mg Tablet, 75 MG PO DAILY, (Reported) Entered as Reported by: DIANE PERES on 02/28/21 08 Famotidine (Famotidine) 20 Mg Tablet, 20 MG PO DAILY, (Reported) Entered as Reported by: DIANE PERES on 02/28/21 0853 Fluoxetine HCl (Fluoxetine HCl) 40 Mg Capsule, 40 MG PO HS, (Reported) Entered as Reported by: DIANE PERES on 02/28/21 0903 Olmesartan/Hydrochlorothiazide (Benicar Hct 20-12.5 mg Tablet) 1 Each Tablet, 1 EACH PO HS, (Reported) Entered as Reported by: DIANE PREES on 02/28/21 08 Sennosides/Docusate Sodium (Senna-S Tablet) 1 Each Tablet, 1 EACH PO BID, (Reported) Entered as Reported by: DIANE PERES on 02/28/21 08 Review of Systems Review of Systems Constitutional: see HPI EENTM: no symptoms reported Respiratory: no symptoms reported Cardiovascular: no symptoms reported Gastrointestinal: no symptoms reported Genitourinary: no symptoms reported Musculoskeletal: no symptoms reported Skin: no symptoms reported Psychiatric/Neurological: Anxiety, Depressed, Emotional Problems Hematologic/Lymphatic: No Symptoms Reported Immunological/Allergic: no symptoms reported Past Cnzuynb-Mdxpzv-Calniq Hx Immunizations Up To Date Tetanus Booster (TDap): Unknown First/Initial COVID19 Vaccinat: 2020 Second COVID19 Vaccination Nickolas: 2020 Third COVID19 Vaccination Date: 10/2020 Seasonal Allergies Seasonal Allergies: No Past Medical History Surgeries: Yes Vascular Surgery Respiratory: Yes COPD Currently Using CPAP: No Currently Using BIPAP: No Cardiac: Yes (STENTS, BYPASS ) Coronary Artery Disease, High Cholesterol, Hypertension Neurological: No Stroke Reproductive Disorders: No Sexually Transmitted Disease: No HIV/AIDS: No Genitourinary: No Bladder Infection, Renal Failure Gastrointestinal: Yes Gastroesophageal Reflux Musculoskeletal: Yes Arthritis Endocrine: Yes Diabetes, Non-Insulin dep HEENT: No Loss of Vision: Right Hearing Impairment: Denies Cancer: No Psychosocial: No Depression Integumentary: No Blood Disorders: No Family Medical History Patient reports no known family medical history. Heart Disease, Diabetes, Hypertension Physical Exam Vital Signs - First Documented Capillary Refill : Height: '" Weight: lbs. oz. kg; 22.45 BMI Method: General Appearance: mild distress (Patient is crying and upset and cannot rem ember her past medical history) HEENT: PERRL/EOMI, normal ENT inspection Neck: non-tender, normal inspection Respiratory: chest non-tender, lungs clear, normal breath sounds, no respiratory distress Cardiovascular: regular rate, rhythm Gastrointestinal: non tender, soft Extremities: normal range of motion Neurologic/Psychiatric: front man II-XII nml as tested, no motor/sensory deficits, alert, other (Oriented x2) Skin: normal color Lymphatic: no adenopathy Focused Exam Lactate Level 06/20/22 10:45: Lactic Acid Level 1.25 Lactic Acid Level Laboratory Tests Test 06/20/22 10:45 Lactic Acid Level 1.25 MMOL/L (0.50-2.00) Progress/Results/Core Measures Suspected Sepsis SIRS Temperature: Pulse: Respiratory Rate: Laboratory Tests 06/20/22 10:45: White Blood Count 7.6 Blood Pressure / Mean: 06/20/22 10:45: Lactic Acid Level 1.25 Laboratory Tests 06/20/22 10:45: Creatinine 0.63, Platelet Count 354, Total Bilirubin 0.5 06/20/22 13:24: INR Comment 1.0 Results/Orders Lab Results Laboratory Tests Test 06/20/22 10:45 06/20/22 13:24 06/20/22 13:43 Range/Units White Blood Count 7.6 4.3-11.0 10^3/uL Red Blood Count 4.40 3.80-5.11 10^6/uL Hemoglobin 12.8 11.5-16.0 g/dL Hematocrit 38 35-52 % Mean Corpuscular Volume 87 80-99 fL Mean Corpuscular Hemoglobin 29 25-34 pg Mean Corpuscular Hemoglobin Concent 34 32-36 g/dL Red Cell Distribution Width 13.8 10.0-14.5 % Platelet Count 354 130-400 10^3/uL Mean Platelet Volume 10.4 9.0-12.2 fL Immature Granulocyte % (Auto) 0 % Neutrophils (%) (Auto) 70 42-75 % Lymphocytes (%) (Auto) 22 12-44 % Monocytes (%) (Auto) 7 0-12 % Eosinophils (%) (Auto) 0 0-10 % Basophils (%) (Auto) 0 0-10 % Neutrophils # (Auto) 5.3 1.8-7.8 10^3/uL Lymphocytes # (Auto) 1.6 1.0-4.0 10^3/uL Monocytes # (Auto) 0.5 0.0-1.0 10^3/uL Eosinophils # (Auto) 0.0 0.0-0.3 10^3/uL Basophils # (Auto) 0.0 0.0-0.1 10^3/uL Immature Granulocyte # (Auto) 0.0 0.0-0.1 10^3/uL Sodium Level 140 135-145 MMOL/L Potassium Level 3.4 L 3.6-5.0 MMOL/L Chloride Level 104 98-107 MMOL/L Carbon Dioxide Level 22 21-32 MMOL/L Anion Gap 14 5-14 MMOL/L Blood Urea Nitrogen 7 7-18 MG/DL Creatinine 0.63 0.60-1.30 MG/DL Estimat Glomerular Filtration Rate 92 BUN/Creatinine Ratio 11 Glucose Level 116 H 70-105 MG/DL Lactic Acid Level 1.25 0.50-2.00 MMOL/L Calcium Level 8.6 8.5-10.1 MG/DL Corrected Calcium 8.9 8.5-10.1 MG/DL Total Bilirubin 0.5 0.1-1.0 MG/DL Aspartate Amino Transf (AST/SGOT) 19 5-34 U/L Alanine Aminotransferase (ALT/SGPT) 15 0-55 U/L Alkaline Phosphatase 66 40-136 U/L Troponin I < 0.028 <0.028 NG/ML Total Protein 6.8 6.4-8.2 GM/DL Albumin 3.6 3.2-4.5 GM/DL Lipase 22 8-78 U/L Procalcitonin 0.01 <0.10 NG/ML Influenza Type A (RT-PCR) Not Detected Not Detecte Influenza Type B (RT-PCR) Not Detected Not Detecte SARS-CoV-2 RNA (RT-PCR) Not Detected Not Detecte Prothrombin Time 13.4 12.2-14.7 SEC INR Comment 1.0 0.8-1.4 Activated Partial Thromboplast Time 27 24-35 SEC D-Dimer 0.47 0.00-0.49 UG/ML Urine Color YELLOW Urine Clarity SL CLOUDY Urine pH 6.5 5-9 Urine Specific [place] 1.015 L 1.016-1.022 Urine Protein NEGATIVE NEGATIVE Urine Glucose (UA) NEGATIVE NEGATIVE Urine Ketones 3+ H NEGATIVE Urine Nitrite NEGATIVE NEGATIVE Urine Bilirubin NEGATIVE NEGATIVE Urine Urobilinogen 0.2 < = 1.0 MG/DL Urine Leukocyte Esterase TRACE H NEGATIVE Urine RBC (Auto) NEGATIVE NEGATIVE Urine RBC NONE /HPF Urine WBC 0-2 /HPF Urine Squamous Epithelial Cells 0-2 /HPF Urine Crystals NONE /LPF Urine Bacteria NEGATIVE /HPF Urine Casts NONE /LPF Urine Mucus NEGATIVE /LPF Urine Culture Indicated NO My Orders Orders - NADYA ISAACS MD Covid 19 Inhouse Test (06/20/22 10:42) Influenza A And B By Pcr (06/20/22 10:42) Cbc With Automated Diff (06/20/22 11:55) Comprehensive Metabolic Panel (06/20/22 11:55) Fibrin Degradation Products (06/20/22 11:55) Lactic Acid Analyzer (06/20/22 11:55) Lipase (06/20/22 11:55) Procalcitonin (Pct) (06/20/22 11:55) Protime With Inr (06/20/22 11:55) Partial Thromboplastin Time (06/20/22 11:55) Ua Culture If Indicated (06/20/22 11:55) Troponin I Gem (06/20/22 11:55) Chest 1 View, Ap/Pa Only (06/20/22 11:56) Ed Iv/Invasive Line Start (06/20/22 11:56) Ns Iv 1000 Ml (Sodium Chloride 0.9%) (06/20/22 12:00) Vital Signs/I&O 06/20/22 06/20/22 10:45 10:45 Temp 36.6 36.6 Pulse 61 61 Resp 22 22 B/P (MAP) 143/101 (115) 143/101 Pulse Ox 100 100 O2 Delivery Room Air Capillary Refill : Progress Note : Progress Note DEMENTIA SYMPTOMS WITH DEPRESSION AND ANXIETY: UTI - Labs and CXR normsl - COVID test and Rapid Flu test negative - UA is positive for LE - Nitrofurantoin 100mg bid for 5 days , with first tab in ER - Follow up with PCP in the next 3 to 7 days, and would benefit from a neuropsych evaluation. -Advised adequate hydration -The patient was seen in the ED, and treated appropriately to presentation at a specific point in time. Patient is informed that there is a possibility that disease and illness can evolve and change in acuity rapidly or slowly after patient is discharged from the ER. Precautionary advice given to the patient for immediate return to ER if symptoms worsen or do not resolve, and to seek emergency care sooner rather than later. Pt also advised on the importance of PCP follow up and compliance with management and follow up plan with PCP and/or specialist, as this is part of the management plan. Pt verbally expressed und erstanding. Diagnostic Imaging Diagonstic Imaging: Xray Plain Films/CT/US/NM/MRI: chest Comments [facility] [place], [place] NAME: [facility]ACIN[facility] REC#: [id number] PT STATUS: REG ER : 1945 PHYSICIAN: NADYA ISAACS MD ADMIT DATE: 06/20/22/ER Draft Date of Exam:06/20/22 CHEST 1 VIEW, AP/PA ONLY INDICATION: Weakness. COMPARISON: 04/25/2021. FINDINGS: Sternal wires are midline. Lungs are clear. No failure, effusion, or pneumothorax. IMPRESSION: No acute appearing abnormality. Dictated on workstation # [id number] Dict: 06/20/22 1230 Trans: 06/20/22 1234 [id number] Interpreted by: MORENITA ZAPATA Electronically signed by: Departure Impression Primary Impression: UTI (urinary tract infection) Additional Impression: Dementia Disposition: 01 HOME, SELF-CARE Condition: Stable Departure-Patient Inst. Referrals: BECKI WAGNER DO (PCP/Family) Primary Care Physician Patient Instructions: Urinary Tract Infections in Adults, Urinary Tract Infection, Adult ED, Tips for Caregivers of People With Alzheimer Disease, Dementia ED Add. Discharge Instructions: - Nitrofurantoin 100mg bid for 5 days - Follow up with PCP in the next 3 to 7 days, and would benefit from a neuropsych evaluation. -Advised adequate hydration Scripts Nitrofurantoin Macrocrystal (Nitrofurantoin) 100 Mg Capsule 100 MG PO BID for 5 Days, #10 CAP Prov: NADYA ISAACS MD 06/20/22 NADYA ISAACS MD Jun 20, 2022 11:20
[2022-06-20] MEDS ORDERED: NS IV 1000 ML 1,000 ML IV SCH (12:00)
[2022-06-20 12:10] LABS: BASOPHILS % (AUTO) 0 % (0-10); EOSINOPHILS % (AUTO) 0 % (0-10); HEMATOCRIT 38 % (35-52); HEMOGLOBIN 12.8 g/dL (11.5-16.0); LYMPHOCYTES # (AUTO) 1.6 10^3/uL (1.0-4.0); LYMPHOCYTES % (AUTO) 22 % (12-44); MEAN CORPUSCULAR HEMOGLOBIN 29 pg (25-34); MEAN CORPUSCULAR HGB CONC 34 g/dL (32-36); MEAN CORPUSCULAR VOLUME 87 fL (80-99); MEAN PLATELET VOLUME 10.4 fL (9.0-12.2); MONOCYTES # (AUTO) 0.5 10^3/uL (0.0-1.0); MONOCYTES % (AUTO) 7 % (0-12); NEUTROPHILS # (AUTO) 5.3 10^3/uL (1.8-7.8); NEUTROPHILS % (AUTO) 70 % (42-75); PLATELET COUNT 354 10^3/uL (130-400); WHITE BLOOD COUNT 7.6 10^3/uL (4.3-11.0)
[2022-06-20 12:20] LABS: ALBUMIN 3.6 GM/DL (3.2-4.5); CHLORIDE 104 MMOL/L (98-107); POTASSIUM 3.4 MMOL/L (3.6-5.0); SODIUM 140 MMOL/L (135-145)
[2022-06-20 12:22] LABS: CALCIUM 8.6 MG/DL (8.5-10.1)
[2022-06-20 12:23] LABS: GLUCOSE 116 MG/DL (70-105); TOTAL PROTEIN 6.8 GM/DL (6.4-8.2)
[2022-06-20 12:24] LABS: CARBON DIOXIDE 22 MMOL/L (21-32)
[2022-06-20 12:25] LABS: BILIRUBIN,TOTAL 0.5 MG/DL (0.1-1.0)
[2022-06-20 12:26] LABS: ALKALINE PHOSPHATASE 66 U/L (40-136); CREATININE SERUM 0.63 MG/DL (0.60-1.30); GFR ESTIMATED 92
[2022-06-20 12:27] LABS: BUN/CREATININE RATIO 11
[2022-06-20 12:29] LABS: ALANINE AMINOTRANSFERASE 15 U/L (0-55)
[2022-06-20 12:30] LABS: LIPASE 22 U/L (8-78)
--- NOTE | 2022-06-20 12:34 | Diagnostic Imaging Report ---
INDICATION: Weakness. COMPARISON: 04/25/2021. FINDINGS: Sternal wires are midline. Lungs are clear. No failure, effusion, or pneumothorax. IMPRESSION: No acute appearing abnormality. Dictated by: Dictated on workstation # [id number]
[2022-06-20 13:50] LABS: BILIRUBIN,URINE NEGATIVE (NEGATIVE); CLARITY,URINE SL CLOUDY; COLOR,URINE YELLOW; GLUCOSE, URINE (UA) NEGATIVE (NEGATIVE); KETONES,URINE 3+ (NEGATIVE); LEUKOCYTE ESTERASE ,URINE TRACE (NEGATIVE); NITRITE,URINE NEGATIVE (NEGATIVE); PH,URINE 6.5 (5-9); PROTEIN,URINE NEGATIVE (NEGATIVE)
[2022-06-20 13:52] LABS: FIBRIN DEGRADATION PRODUCTS 0.47 UG/ML (0.00-0.49); PROTHROMBIN TIME PATIENT 13.4 SEC (12.2-14.7)
[2022-06-20 14:16] LABS: BACTERIA,URINE NEGATIVE /HPF; SQUAMOUS EPITHELIAL CELL,UR 0-2 /HPF; WBC,URINE 0-2 /HPF
[2022-06-20] MEDS ORDERED: NITR100C PO (16:11)
[2022-06-20] MEDS ORDERED: NITROFURANTOIN 50 MG (MACRODANTIN) CAP PO ONE (16:15)
[2022-06-20 17:05] VITALS: BP 150/70
== END 2022-06-20 17:05 | disposition home or self-care (01) ==
LOC: EDUNIT# 10:40 → ER 10:41
DX: N39.0 Urinary tract infection, site not specified (principal); F03.90 Unspecified dementia, unspecified severity, without behavioral disturbance, psychotic disturbance, mood disturbance, and anxiety; Z20.822 Contact with and (suspected) exposure to COVID-19
CPT/HCPCS: 36415; 71045; 80053; 81000; 83605; 83690; 84145; 84484; 85025; 85379; 85610; 85730; 87636